=== PATIENT | male | born 1930 | race Two or more races ===

== ENCOUNTER 2016-12-26 19:33 | Inpatient (IN) | payer MEDICARE, MEDICAID ==
[~2016-12-26] VITALS: Ht 172.7 cm; Wt 68.0 kg
[~2016-12-26 19:33] MED LIST: ASPIRIN EC81 MG ORAL; ATIVAN2 MG ORAL; CELEXA20 MG ORAL; CIPRO250 MG ORAL; CIPROFLOXACIN500 M2 ORAL; ECOTRIN325 MG ORAL; ENALAPRIL MALE2.5 MG ORAL; ENALAPRIL MALEA10 MG ORAL; ENALAPRIL MALEA20 MG ORAL; EXELON1.5 MG ORAL; KEFLEX500 MG ORAL; MERREM1 GM IV; METFORMIN HCL500 M1 ORAL; MIRALAX17 GM ORAL; NITROFURANTOIN100 M2 ORAL; NORVASC5 MG ORAL; PLAVIX75 MG ORAL; TYLENOL325 MG ORAL; VASOTEC10 MG ORAL; VESICARE5 MG ORAL; VITAMIN D250000 UNI1 ORAL; norvasc; vitamin D2
[2016-12-26] MEDS ORDERED: NITROFURANTOIN100 M2 ORAL (19:42)
[2016-12-26] MEDS ORDERED: ENALAPRIL MALEA20 MG ORAL (19:42)
[2016-12-26] MEDS ORDERED: NORVASC5 MG ORAL (19:42)
[2016-12-26] MEDS ORDERED: ASPIRIN81 MG ORAL (19:43)
--- NOTE | 2016-12-26 19:43 | Emergency Room Report ---
History of Present Illness General Chief Complaint: Altered Level of Consciousness Source: Family Member, Medical Record, EMS Present Illness HPI The patient is sent in for altered mentation. Apparently he's had UTIs in the past. He is a suprapubic catheter. He was last admitted to [facility] in 2016. He is unable to give a history. His PMD called and stated he believes the patient has an UTI and wants him admitted. Macrobid was started 12/23. He has been confused. DISCHARGE DIAGNOSES 2016: Includes: 1. Urinary tract infection. 2. Altered mental status secondary to toxic encephalopathy, resolved. 3. Dehydration, resolved. 4. Hypertension. 5. Diabetes mellitus type 2. 6. Coronary artery disease. 7. Second-degree heart block. 8. Depression. 9. Generalized weakness. 10. Nonobstructive renal stone. 11. Neurogenic bladder with suprapubic catheterization. Allergies: Coded Allergies: No Known Allergies (Unverified , 11/26/14) Patient History Limited by: medical condition Past Medical History: see triage record, old chart reviewed Social History: Denies: smoking, alcohol use, drug use Social History Narrative Reviewed Nursing Documentation: PMH: Agreed, PSxH: Agreed Nursing Documentation-PMH Past Medical History: No History, Except For Hx Cardiac Problems: Yes Hx Hypertension: Yes Hx Diabetes: Yes - Type 2 Hx Cancer: No Hx Gastrointestinal Problems: No History Of Psychiatric Problem: Yes - Anxiety Disorder Hx Neurological Problems: No - Insomnia Review of Systems All Other Systems: limited Physical Exam Vital Signs Date Time Temp Pulse Resp B/P (MAP) Pulse Ox O2 Delivery O2 Flow Rate FiO2 12/26/16 19:20 98.1 68 20 128/69 95 Room Air Sp02 EP Interpretation: reviewed, normal General Appearance: well appearing, no apparent distress, alert Head: normocephalic, atraumatic Eyes: bilateral eye normal inspection, bilateral eye PERRL ENT: moist mucus membranes Neck: supple Respiratory: lungs clear, normal breath sounds Cardiovascular #1: regular rate, rhythm, edema - trace bilaterally Cardiovascular #2: 2+ radial (R) Gastrointestinal: normal inspection, normal bowel sounds, no mass, non- distended, tenderness - suprapubic, other - suprapubic cath Genitourinary: no CVA tenderness, other - see abd Musculoskeletal: back normal, normal range of motion Neurologic: alert, responsive, motor weakness - LE bilaterally, UE normal Psychiatric: depressed affect Reflexes: 1+ knee (R), 1+ knee (L) Skin: warm/dry, other - sallo Medical Decision Making Diagnostic Impression: Primary Impression: Catheter-associated urinary tract infection Qualified Codes: T83.510A - Infection and inflammatory reaction due to cystostomy catheter, initial encounter; N39.0 - Urinary tract infection, site not specified Additional Impressions: Outpatient antibiotic failure Altered level of consciousness Renal insufficiency ER Course The patient presents with altered mentation with alleged UTI. Differential includes sepsis, electrolyte abnormality, acute myocardial infarction amongst others. The patient will be treated with IV hydration and undergo evaluation with EKG, chest x-ray and labs. The fact he is altered on outpatient antibiotics is disconcerting and may indicate need for IV antibiotics with broader spectrum. Labs with normal WBC. Normal lactate. UA with pyuria. EKG and CXR unremarkable. Some renal insufficiency. Discussed with daughter. Admit tele Dr. Felix (at request of Dr. Sweeney. Laboratory Tests Test 12/26/16 19:45 12/26/16 20:30 White Blood Count 5.8 K/UL (4.8-10.8) Red Blood Count 4.19 M/UL (4.70-6.10) L Hemoglobin 10.0 G/DL (14.2-18.0) L Hematocrit 31.4 % (42.0-52.0) L Mean Corpuscular Volume 75 FL (80-99) L Mean Corpuscular Hemoglobin 23.9 PG (27.0-31.0) L Mean Corpuscular Hemoglobin Concent 32.0 G/DL (32.0-36.0) Red Cell Distribution Width 14.4 % (11.6-14.8) Platelet Count 173 K/UL (150-450) Mean Platelet Volume 6.5 FL (6.5-10.1) Neutrophils (%) (Auto) 62.5 % (45.0-75.0) Lymphocytes (%) (Auto) 22.8 % (20.0-45.0) Monocytes (%) (Auto) 7.5 % (1.0-10.0) Eosinophils (%) (Auto) 6.1 % (0.0-3.0) H Basophils (%) (Auto) 1.2 % (0.0-2.0) Prothrombin Time 9.5 SEC (9.30-11.50) Prothrombin Time INR 0.9 (0.9-1.1) PTT 23 SEC (23-33) Sodium Level 135 mEQ/L (135-145) Potassium Level 5.0 mEQ/L (3.4-4.9) H Chloride Level 98 mEQ/L (98-107) Carbon Dioxide Level 23 mEQ/L (20-30) Anion Gap 14 (5-15) Blood Urea Nitrogen 40 mg/dL (7-23) H Creatinine 2.0 mg/dL (0.7-1.2) H Estimate Glomerular Filtration Rate mL/min (>60) Glucose Level 153 mg/dL (74-106) H Lactic Acid Level 1.90 mmol/L (0.66-2.22) Calcium Level 9.6 mg/dL (8.6-10.2) Total Bilirubin 0.5 mg/dL (0.0-1.2) Aspartate Amino Transferase (AST) 14 U/L (5-40) Alanine Aminotransferase (ALT) 10 U/L (3-41) Alkaline Phosphatase 70 U/L (40-129) Ammonia 22 umol/L (16-60) Total Creatine Kinase 44 U/L (38-174) Troponin I < 0.30 ng/mL (<=0.30) Pro-B-Type Natriuretic Peptide 870 pg/mL (0-450) H Total Protein 6.7 g/dL (6.6-8.7) Albumin 4.2 g/dL (3.5-5.2) Globulin 2.5 g/dL Albumin/Globulin Ratio 1.6 (1.0-2.7) Thyroid Stimulating Hormone (TSH) 2.430 uIU/mL (0.300-4.500) Salicylates Level < 1 mg/dL (10-30) L Acetaminophen Level < 10 ug/mL (10-30) L Serum Alcohol < 10 mg/dL Urine Color Yellow Urine Appearance Clear Urine pH 5 (4.5-8.0) Urine Specific [place] 1.010 (1.005-1.035) Urine Protein 3+ (NEGATIVE) H Urine Glucose (UA) Negative (NEGATIVE) Urine Ketones Negative (NEGATIVE) Urine Occult Blood 3+ (NEGATIVE) H Urine Nitrite Positive (NEGATIVE) H Urine Bilirubin Negative (NEGATIVE) Urine Urobilinogen Normal MG/DL (0.0-1.0) Urine Leukocyte Esterase 3+ (NEGATIVE) H Urine RBC 5-10 /HPF (0 - 0) H Urine WBC 15-20 /HPF (0 - 0) H Urine Squamous Epithelial Cells Occasional /LPF Urine Bacteria Moderate /HPF (NONE) H Urine Opiates Screen Negative (NEGATIVE) Urine Barbiturates Screen Negative (NEGATIVE) Phencyclidine (PCP) Screen Negative (NEGATIVE) Urine Amphetamines Screen Negative (NEGATIVE) Urine Benzodiazepines Screen Negative (NEGATIVE) Urine Cocaine Screen Negative (NEGATIVE) Urine Marijuana (THC) Screen Negative (NEGATIVE) EKG Diagnostic Results Rate: normal Rhythm: other - junctional ST Segments: no acute changes Rhythm Strip Diag. Results EP Interpretation: yes Rhythm: no PVC's, no ectopy, other - rate 62 Chest X-Ray Diagnostic Results Chest X-Ray Diagnostic Results : Chest X-Ray Ordered: Yes # of Views/Limited/Complete: 1 View Indication: Other EP Interpretation: Yes Interpretation: no consolidation, no effusion, no pneumothorax Impression: No acute disease Interpreting ER Provider: Electronically signed by Jurgen Grover MD Last Vital Signs Date Time Temp Pulse Resp B/P (MAP) Pulse Ox O2 Delivery O2 Flow Rate FiO2 12/26/16 23:58 97.2 59 21 149/68 Room Air 12/26/16 23:10 93 Status: improved Disposition: ADMITTED INPATIENT Condition: Serious Jurgen Grover M.D. Dec 26, 2016 19:43
[2016-12-26 20:05] VITALS: BP 131/50
[2016-12-26 20:18] LABS: BASOPHILS % (AUTO) 1.2 % (0.0-2.0); EOSINOPHILS % (AUTO) 6.1 % (0.0-3.0); LYMPHOCYTES % (AUTO) 22.8 % (20.0-45.0); MEAN CORPUSCULAR HEMOGLOBIN 23.9 PG (27.0-31.0); MEAN CORPUSCULAR VOLUME 75 FL (80-99); MEAN PLATELET VOLUME 6.5 FL (6.5-10.1); MONOCYTES % (AUTO) 7.5 % (1.0-10.0); NEUTROPHILS % (AUTO) 62.5 % (45.0-75.0); PLATELET COUNT 173 K/UL (150-450); RED BLOOD COUNT 4.19 M/UL (4.70-6.10); RED CELL DISTRIBUTION WIDTH 14.4 % (11.6-14.8); WHITE BLOOD COUNT 5.8 K/UL (4.8-10.8)
[2016-12-26 20:33] LABS: TROPONIN I < 0.30 ng/mL (<=0.30)
[2016-12-26 20:34] LABS: AMMONIA 22 umol/L (16-60); INR 0.9 (0.9-1.1); PROTHROMBIN TIME 9.5 SEC (9.30-11.50)
[2016-12-26 20:35] LABS: ACETAMINOPHEN < 10 ug/mL (10-30); ALANINE AMINOTRANSFERASE 10 U/L (3-41); ALBUMIN/GLOBULIN RATIO 1.6 (1.0-2.7); ALCOHOL < 10 mg/dL; ANION GAP 14 (5-15); ASPARTATE AMINO TRANSFERASE 14 U/L (5-40); CALCIUM 9.6 mg/dL (8.6-10.2); CARBON DIOXIDE 23 mEQ/L (20-30); CHLORIDE 98 mEQ/L (98-107); HEMOLYSIS 15; SODIUM 135 mEQ/L (135-145); TOTAL PROTEIN 6.7 g/dL (6.6-8.7)
[2016-12-26 20:54] LABS: APPEARANCE,URINE CLEAR; KETONES,URINE NEGATIVE (NEGATIVE); LEUKOCYTE ESTERASE ,URINE 3+ (NEGATIVE); NITRITE,URINE POSITIVE (NEGATIVE); PH,URINE 5 (4.5-8.0); PROTEIN,URINE 3+ (NEGATIVE); UROBILINOGEN,URINE NORMAL MG/DL (0.0-1.0)
[2016-12-26 21:04] LABS: BACTERIA,URINE MODERATE /HPF; SQUAMOUS EPITHELIAL CELL,UR OCCASIONAL /LPF (NONE/OCC); WBC,URINE 15-20 /HPF (0 - 0)
[2016-12-26] MEDS ORDERED: Cefepime HCl 1 GM in D5W 55 ML IVPB ONE (21:15)
[2016-12-26] MEDS ORDERED: Cefepime 1gm vial ONE (21:21)
[2016-12-26 22:55] VITALS: BP 138/57
[2016-12-26] MEDS ORDERED: Mylanta II UD 30ml ORAL PRN (23:00)
[2016-12-26] MEDS ORDERED: Milk of Magnesia 30ml Ud ORAL PRN (23:00)
[2016-12-26] MEDS ORDERED: Zolpidem 5mg tab ORAL PRN (23:00)
[2016-12-26 23:58] VITALS: BP 149/68
[2016-12-27] MEDS: Heparin 5000 units/ml inj SUBQ SCH ×3 (00:09→20:59)
[2016-12-27] MEDS ORDERED: Vancomycin 1250mg/D5W 250ml IVPB SCH (01:00)
[2016-12-27 03:37] VITALS: BP 121/63
[2016-12-27] MEDS ORDERED: Piperacillin/Tazobactam 2.25 GM in D5W 55 ML IVPB SCH (06:00)
[2016-12-27] MEDS ORDERED: NovoLOG Insulin Flexpen SUBQ SCH ×3 (06:30)
[2016-12-27] MEDS ORDERED: Zosyn 3.375gm inj ONE (06:46)
[2016-12-27] MEDS: Zosyn 3.375gm q8h **Extended infusion IVPB SCH ×6 (07:24→22:43)
[2016-12-27 07:51] VITALS: BP 135/64
[2016-12-27] MEDS: NovoLOG Insulin Flexpen SUBQ SCH ×4 (08:00→21:00)
[2016-12-27 11:39] VITALS: BP 150/73
--- NOTE | 2016-12-27 11:58 | History & Physical ---
History and Physical History & Physicial HP dictated # [id number] JANINE COTO Dec 27, 2016 11:58
[2016-12-27] MEDS: Miralax 17gm pkt ORAL SCH (12:00)
[2016-12-27] MEDS: Aspirin EC 81mg tab ORAL SCH (12:50)
[2016-12-27] MEDS: Citalopram 20mg Tab ORAL SCH (12:51)
[2016-12-27 15:24] VITALS: BP 100/62
[2016-12-27 20:00] VITALS: BP 131/60
[2016-12-28 00:16] VITALS: BP 123/58
--- NOTE | 2016-12-28 00:45 | History and Physical Report ---
DATE OF ADMISSION: 12/26/2016 CHIEF COMPLAINT: The patient was found to have change in mental status. HISTORY OF PRESENT ILLNESS: This is a very pleasant, 85-year-old, [place] male, who has a history of neurogenic bladder, status post suprapubic catheter for a number of years now. The patient was diagnosed with recent UTI. He was treated with oral antibiotics; however, he has become altered and that is why he was sent to the emergency room and was admitted with diagnosis of urinary tract infection. PAST MEDICAL HISTORY: Includes also history of diabetes mellitus, hypertension, coronary artery disease, second-degree heart block, depression, and history of nephrolithiasis. MEDICATIONS: Reviewed in EMR. ALLERGIES: No known drug allergies. SOCIAL HISTORY: The patient lives in a [facility] care facility. No history of smoking or alcohol abuse. REVIEW OF SYSTEMS: Noncontributory. PHYSICAL EXAMINATION: GENERAL: The patient is an elderly male, in no acute distress. VITAL SIGNS: Blood pressure 135/64, pulse 54, temperature 96.3 degrees, and respirations 20. HEENT: Pale conjunctivae. Anicteric sclerae. NECK: Supple. LUNGS: Clear to auscultation. HEART: S1 and S2 without murmurs or rubs. ABDOMEN: Soft and nontender. There is a suprapubic catheter in place. EXTREMITIES: No cyanosis or edema. LABORATORY FINDINGS: The CBC shows WBC of 5.8, hematocrit is 31.4, hemoglobin is 10, and platelets 173,000. UA shows 3+ protein, 15-20 WBCs per high-powered field. Chemistry panel shows serum sodium 135, potassium 5, chloride 98, CO2 23, BUN is 40, creatinine 2, and blood sugar is 153. ASSESSMENT: This is an 85-year-old, [place] male, who was admitted with change in mental status and has urinary tract infection. He has also other comorbidities including diabetes mellitus, coronary artery disease, previous history of depression, and kidney stones. PLAN: The patient will be on IV antibiotics. Labs will be checked. Urine cultures will be checked. ID consultation will be obtained. Case was discussed with the son, who was at bedside. Kev Felix M.D. DR: SUSAN JOB#: [id number] CC:
[2016-12-28] MEDS ORDERED: Vancomycin 750mg/NS 250ml IVPB SCH (02:00)
--- NOTE | 2016-12-28 02:15 | Consultation ---
DATE OF CONSULTATION: 12/27/2016 INFECTIOUS DISEASE CONSULTATION: CONSULTING PHYSICIAN: Aquiles Felix M.D. PRIMARY ATTENDING PHYSICIAN: Kev Felix M.D. REASON FOR CONSULTATION: Urinary tract infection. HISTORY OF PRESENT ILLNESS: This is an 85-year-old [place] male, admitted last night from nursing facility with altered mental status. The patient himself is a poor historian. No fever. No chills. No leukocytosis. He has a suprapubic catheter. PAST MEDICAL HISTORY: Significant for diabetes mellitus type 2, suprapubic catheter, hypertension, coronary artery disease, second-degree heart block, and anemia. ALLERGIES: No known drug allergy. MEDICATIONS: Vancomycin, amlodipine, aspirin, Celexa, Plavix, Tylenol, enalapril, insulin, Zosyn, sodium chloride, heparin, magnesium hydroxide, Zofran, Ambien, and Mylanta. SOCIAL HISTORY: [facility] resident. He states that he had a son and daughter. No history of alcohol, drug abuse, or smoking. REVIEW OF SYSTEMS: The patient does not seem to remember the events very well. Currently has no pain. PHYSICAL EXAMINATION: VITAL SIGNS: Temperature is 96.6 degrees, pulse 62, and blood pressure 150/73. GENERAL APPEARANCE: Seems to be well developed. HEENT: Head and neck, pink conjunctivae. HEART: S1 and S2 are regular. LUNGS: Clear. ABDOMEN: Soft. There is a suprapubic catheter in place. There is a vertical line of surgery in the suprapubic area. The patient does not remember what kind of surgery he had in the past. EXTREMITIES: He has no edema. LABORATORY AND DIAGNOSTIC DATA: WBC is 5.8, hemoglobin 10, hematocrit 31.4, and platelets 173,000. Sodium is 135, potassium 5, chloride 98, bicarbonate 23, BUN 40, creatinine 2, and glucose 153. Urine culture is so far negative. Chest x-ray, negative. UA showed WBCs 15 to 20, RBCs of 5 to 10, nitrate positive, and bacteria moderate. IMPRESSION: 1. Altered mental status. 2. The patient has pyuria and may have urinary tract infection that seems to be complicated. He has suprapubic urine catheter. 3. Diabetes mellitus type 2. 4. Hypertension. 5. Anemia. 6. He seems to have baseline dementia. RECOMMENDATIONS: Continue with Zosyn. Discontinue vancomycin. At the end of my exam, I thanked Dr. Kev Felix for involving me in the care of this patient. Aquiles Felix M.D. DR: Dionte JOB#: [id number] CC:
[2016-12-28 04:05] VITALS: BP 132/60
[2016-12-28] MEDS: Zosyn 3.375gm q8h **Extended infusion IVPB SCH ×6 (05:25→22:23)
[2016-12-28] MEDS: NovoLOG Insulin Flexpen SUBQ SCH ×4 (06:09→21:09)
[2016-12-28 08:00] VITALS: BP 145/59
[2016-12-28] MEDS: Citalopram 20mg Tab ORAL SCH (09:01)
[2016-12-28] MEDS: Aspirin EC 81mg tab ORAL SCH (09:01)
[2016-12-28] MEDS: Miralax 17gm pkt ORAL SCH (09:02)
[2016-12-28] MEDS: Heparin 5000 units/ml inj SUBQ SCH ×2 (09:05→21:09)
--- NOTE | 2016-12-28 09:13 | Infectious Diseases Prog Note ---
Assessment/Plan Assessment/Plan A; Complicated UTI AMS DM type 2 HPN CAD Anemia Acute renal failure P Continue Zosyn will f/u cultures Subjective ROS Limited/Unobtainable: No Constitutional: Reports: no symptoms Respiratory: Reports: no symptoms Gastrointestinal/Abdominal: Reports: no symptoms Genitourinary: Reports: no symptoms Allergies: Coded Allergies: No Known Allergies (Unverified , 11/26/14) Objective Vital Signs Last 24 Hour Vital Signs Date Time Temp Pulse Resp B/P (MAP) Pulse Ox O2 Delivery O2 Flow Rate FiO2 12/28/16 09:01 145/59 12/28/16 09:01 59 145/59 12/28/16 08:00 97.0 59 20 145/59 99 Room Air 12/28/16 04:05 98.1 58 19 132/60 96 Room Air 12/28/16 03:49 44 12/28/16 00:16 98.8 56 20 123/58 93 Room Air 12/27/16 23:59 54 12/27/16 20:56 131/60 12/27/16 20:00 98.3 60 19 131/60 95 Room Air 12/27/16 19:59 58 12/27/16 16:00 58 12/27/16 15:24 97.1 71 20 100/62 94 Room Air 12/27/16 12:51 62 150/73 12/27/16 12:50 150/73 12/27/16 12:00 55 12/27/16 11:39 96.6 62 20 150/73 94 Room Air Height (Feet): 5 Height (Inches): 8.00 Weight (Pounds): 150 General Appearance: no acute distress HEENT: mucous membranes moist Respiratory/Chest: lungs clear Cardiovascular: normal rate Abdomen: soft, non tender Genitourinary: other - suprapubic catheter Extremities: no edema Neurologic/Psychiatric: alert, responsive Microbiology Date/Time Source Procedure Growth Status 12/26/16 20:00 Blood Blood Culture - Preliminary NO GROWTH AFTER 24 HOURS Resulted 12/26/16 19:45 Blood Blood Culture - Preliminary NO GROWTH AFTER 24 HOURS Resulted 12/26/16 20:30 Urine,Clean Catch Urine Culture - Preliminary Gram Negative Bacillus 1 Resulted Current Medications Medications (Trade) Dose Ordered Sig/Charlene Route PRN Reason Start Time Stop Time Status Last Admin Dose Admin Acetaminophen (Tylenol) 325 mg Q6H PRN ORAL Mild Pain/Temp > 100.5 12/27/16 12:00 01/26/17 11:59 Al Hydroxide/Mg Hydroxide (Mylanta II) 30 ml Q6H PRN ORAL dyspepsia 12/26/16 23:00 01/25/17 22:59 Amlodipine Besylate (Norvasc) 5 mg DAILY ORAL 12/27/16 13:00 01/26/17 12:59 12/28/16 09:01 Aspirin (Ecotrin) 81 mg DAILY ORAL 12/27/16 13:00 01/26/17 12:59 12/28/16 09:01 Citalopram Hydrobromide (celeXA) 40 mg DAILY ORAL 12/27/16 13:00 01/26/17 12:59 12/28/16 09:01 Clopidogrel Bisulfate (Plavix) 75 mg DAILY ORAL 12/27/16 13:00 01/26/17 12:59 12/28/16 09:01 Dextrose (Dextrose 50%) STAT PRN IV Hypoglycemia 12/26/16 23:00 01/25/17 22:59 Enalapril Maleate (Vasotec) 20 mg EVERY 12 HOURS ORAL 12/27/16 12:00 01/26/17 11:59 12/28/16 09:01 Heparin Sodium (Porcine) (Heparin 5000 units/ml) 5,000 units EVERY 12 HOURS SUBQ 12/27/16 00:00 01/26/17 00:00 12/28/16 09:05 Insulin Aspart (NovoLOG) BEFORE MEALS AND HS SUBQ 12/27/16 08:00 01/26/17 07:59 12/27/16 21:00 Magnesium Hydroxide (Mom) 30 ml HSPRN PRN ORAL Constipation 12/26/16 23:00 01/25/17 22:59 Ondansetron HCl (Zofran) 4 mg Q6H PRN IVP Nausea & Vomiting 12/26/16 23:00 01/25/17 22:59 Piperacillin Sod/ Tazobactam Sod 3.375 gm/Dextrose 110 ml @ 27.5 mls/hr EVERY 8 HOURS IVPB 12/27/16 06:00 01/03/17 05:59 12/28/16 05:25 Polyethylene Glycol (Miralax) 17 gm DAILY ORAL 12/27/16 12:00 01/26/17 11:59 12/28/16 09:02 Sodium Chloride 1,000 ml @ 75 mls/hr [id number] IVLG 12/27/16 00:00 01/26/17 00:00 12/28/16 04:08 Zolpidem Tartrate (Ambien) 5 mg DAILYPRN PRN ORAL Insomnia 12/26/16 23:00 01/02/17 22:59 MIKE COTO Dec 28, 2016 09:13
--- NOTE | 2016-12-28 09:48 | General Progress Note ---
Assessment/Plan Problem List: (1) Altered level of consciousness ICD Codes: R40.4 - Transient alteration of awareness SNOMED: 1614926 (2) Catheter-associated urinary tract infection ICD Codes: T83.51XA - Infection and inflammatory reaction due to indwelling urinary catheter, initial encounter; N39.0 - Urinary tract infection, site not specified SNOMED: 06384586 Qualifiers: Qualified Codes: T83.510A - Infection and inflammatory reaction due to cystostomy catheter, initial encounter; N39.0 - Urinary tract infection, site not specified (3) ARF (acute renal failure) ICD Codes: N17.9 - Acute kidney failure, unspecified SNOMED: 94673910 Assessment/Plan abxs IVF follow labs Await final culture results Subjective Allergies: Coded Allergies: No Known Allergies (Unverified , 11/26/14) Subjective feels ok Objective Last 24 Hour Vital Signs Date Time Temp Pulse Resp B/P (MAP) Pulse Ox O2 Delivery O2 Flow Rate FiO2 12/28/16 09:01 145/59 12/28/16 09:01 59 145/59 12/28/16 08:00 97.0 59 20 145/59 99 Room Air 12/28/16 04:05 98.1 58 19 132/60 96 Room Air 12/28/16 03:49 44 12/28/16 00:16 98.8 56 20 123/58 93 Room Air 12/27/16 23:59 54 12/27/16 20:56 131/60 12/27/16 20:00 98.3 60 19 131/60 95 Room Air 12/27/16 19:59 58 12/27/16 16:00 58 12/27/16 15:24 97.1 71 20 100/62 94 Room Air 12/27/16 12:51 62 150/73 12/27/16 12:50 150/73 12/27/16 12:00 55 12/27/16 11:39 96.6 62 20 150/73 94 Room Air Intake and Output 12/28/16 12/29/16 19:00 07:00 Intake Total 27.5 ml Balance 27.5 ml IV Total 27.5 ml Height (Feet): 5 Height (Inches): 8.00 Weight (Pounds): 150 Cardiovascular: normal rate Respiratory/Chest: lungs clear Abdomen: soft JANINE COTO Dec 28, 2016 09:48
[2016-12-28 11:52] VITALS: BP 143/69
[2016-12-28 16:00] VITALS: BP 123/61
--- NOTE | 2016-12-28 16:29 | General Progress Note ---
Assessment/Plan Status: stable Assessment/Plan 1. Altered level of consciousness - 2nd to metabolic encephalopathy 2. Catheter-associated urinary tract infection - cont IV abx for now. follow urine cx. ID is following. 3. ARF (acute renal failure) - Cont IV fluid and recheck labs in AM. 4. HTN - cont Norvasc 5 mg one po daily. cont enalapril 20 mg one po daily 5. DM II - insulin SSI now. Subjective Date patient seen: Dec 28, 2016 Time patient seen: 04:00 Constitutional: Reports: no symptoms HEENT: Reports: no symptoms Cardiovascular: Reports: no symptoms Respiratory: Reports: no symptoms Gastrointestinal/Abdominal: Reports: no symptoms Genitourinary: Reports: no symptoms Neurologic/Psychiatric: Reports: no symptoms Endocrine: Reports: no symptoms Hematologic/Lymphatic: Reports: no symptoms Allergies: Coded Allergies: No Known Allergies (Unverified , 11/26/14) Subjective Patient is afebrile. no sob or chest pain. no fever or chills. no nausea or vomiting. He is on IV abx and urine cx still pending. Objective Last 24 Hour Vital Signs Date Time Temp Pulse Resp B/P (MAP) Pulse Ox O2 Delivery O2 Flow Rate FiO2 12/28/16 12:00 57 12/28/16 11:52 97.7 57 20 143/69 94 Room Air 12/28/16 09:01 145/59 12/28/16 09:01 59 145/59 12/28/16 08:00 97.0 59 20 145/59 99 Room Air 12/28/16 08:00 64 12/28/16 04:05 98.1 58 19 132/60 96 Room Air 12/28/16 03:49 44 12/28/16 00:16 98.8 56 20 123/58 93 Room Air 12/27/16 23:59 54 12/27/16 20:56 131/60 12/27/16 20:00 98.3 60 19 131/60 95 Room Air 12/27/16 19:59 58 Intake and Output 12/28/16 12/29/16 19:00 07:00 Intake Total 857.5 ml Balance 857.5 ml Intake Oral 120 ml IV Total 737.5 ml Height (Feet): 5 Height (Inches): 8.00 Weight (Pounds): 150 General Appearance: no apparent distress, confused EENT: normal ENT inspection, TMs normal Neck: non-tender, normal alignment, supple Cardiovascular: normal peripheral pulses, normal rate, regular rhythm Respiratory/Chest: chest wall non-tender, lungs clear, normal breath sounds Abdomen: non tender, soft, no organomegaly Extremities: normal range of motion, non-tender Edema: no edema noted Arm (L), no edema noted Arm (R), no edema noted Leg (L), no edema noted Leg (R), no edema noted Pedal (L), no edema noted Pedal (R), no edema noted Generalized Neurologic: no motor/sensory deficits, responsive Skin: warm/dry Lymphatic: normal anterior cervical (L), normal anterior cervical (R), normal posterior cervical (L), normal posterior cervical (R), normal submandibular (L) , normal submandibular (R), normal supraclavicular (L), normal supraclavicular ( R), normal axillary (L), normal axillary (R), normal inguinal (L), normal inguinal (R), normal other ISIDRO YOON Dec 28, 2016 16:29
[2016-12-28 20:00] VITALS: BP 155/91
[2016-12-29] VITALS: BP 139/63
[2016-12-29 04:00] VITALS: BP 133/69
[2016-12-29] MEDS: Zosyn 3.375gm q8h **Extended infusion IVPB SCH ×2 (06:12)
[2016-12-29] MEDS: NovoLOG Insulin Flexpen SUBQ SCH ×4 (06:36→21:26)
[2016-12-29 06:45] LABS: BASOPHILS % (AUTO) 1.7 % (0.0-2.0); EOSINOPHILS % (AUTO) 6.9 % (0.0-3.0); MEAN CORPUSCULAR HEMOGLOBIN 23.4 PG (27.0-31.0); MEAN CORPUSCULAR HGB CONC 31.2 G/DL (32.0-36.0); MEAN CORPUSCULAR VOLUME 75 FL (80-99); MONOCYTES % (AUTO) 9.1 % (1.0-10.0); NEUTROPHILS % (AUTO) 48.3 % (45.0-75.0); PLATELET COUNT 163 K/UL (150-450); RED BLOOD COUNT 3.94 M/UL (4.70-6.10); RED CELL DISTRIBUTION WIDTH 13.3 % (11.6-14.8); WHITE BLOOD COUNT 4.5 K/UL (4.8-10.8)
[2016-12-29 06:59] LABS: ANION GAP 10 (5-15); CARBON DIOXIDE 26 mEQ/L (20-30); CHLORIDE 106 mEQ/L (98-107); CREATININE 1.3 mg/dL (0.7-1.2); HEMOLYSIS 1; POTASSIUM 4.4 mEQ/L (3.4-4.9); SODIUM 142 mEQ/L (135-145)
[2016-12-29 08:17] VITALS: BP 131/59
[2016-12-29] MEDS: Miralax 17gm pkt ORAL SCH (10:03)
[2016-12-29] MEDS: Aspirin EC 81mg tab ORAL SCH (10:04)
[2016-12-29] MEDS: Citalopram 20mg Tab ORAL SCH (10:04)
[2016-12-29] MEDS: Heparin 5000 units/ml inj SUBQ SCH ×2 (10:05→21:25)
[2016-12-29] MEDS ORDERED: Tubing IV Secondary IV ONE (10:51)
[2016-12-29] MEDS ORDERED: 1/2 NS 1000ml IV ONE (10:51)
[2016-12-29] MEDS ORDERED: NS 275ml ONE (10:51)
--- NOTE | 2016-12-29 11:55 | Infectious Diseases Prog Note ---
Assessment/Plan Assessment/Plan A; Complicated UTI with E.coli AMS DM type 2 HPN CAD Anemia Acute renal failure improving P discontinue Zosyn , start on Rocephin @ time of discharge PO Keflex X 4 days Subjective ROS Limited/Unobtainable: Yes Allergies: Coded Allergies: No Known Allergies (Unverified , 11/26/14) Objective Vital Signs Last 24 Hour Vital Signs Date Time Temp Pulse Resp B/P (MAP) Pulse Ox O2 Delivery O2 Flow Rate FiO2 12/29/16 10:04 58 131/59 12/29/16 10:03 131/59 12/29/16 08:17 97.7 58 20 131/59 99 Room Air 12/29/16 08:00 59 12/29/16 04:00 49 12/29/16 04:00 97.0 51 21 133/69 95 Room Air 12/29/16 00:00 97.0 58 20 139/63 95 Room Air 12/29/16 00:00 51 12/28/16 21:07 155/91 12/28/16 20:00 57 12/28/16 20:00 97.0 55 20 155/91 94 Room Air 12/28/16 16:00 56 12/28/16 16:00 97.9 60 20 123/61 94 Room Air 12/28/16 12:00 57 Height (Feet): 5 Height (Inches): 8.00 Weight (Pounds): 150 General Appearance: no acute distress HEENT: mucous membranes moist Respiratory/Chest: lungs clear Cardiovascular: normal rate Abdomen: soft, non tender Extremities: no edema Neurologic/Psychiatric: other - sleeping Microbiology Date/Time Source Procedure Growth Status 12/26/16 20:00 Blood Blood Culture - Preliminary NO GROWTH AFTER 48 HOURS Resulted 12/26/16 19:45 Blood Blood Culture - Preliminary NO GROWTH AFTER 48 HOURS Resulted 12/26/16 20:30 Nasal Nares MRSA Culture - Final NO METHICILLIN RESISTANT STAPH AUREUS... Complete 12/26/16 20:30 Urine,Clean Catch Urine Culture - Final Escherichia Coli Complete 12/26/16 20:30 Rectum VRE Culture - Final NO VANCOMYCIN RESISTANT ENTEROCOCCUS ... Complete Laboratory Tests Test 12/29/16 06:05 White Blood Count 4.5 K/UL (4.8-10.8) L Red Blood Count 3.94 M/UL (4.70-6.10) L Hemoglobin 9.2 G/DL (14.2-18.0) L Hematocrit 29.5 % (42.0-52.0) L Mean Corpuscular Volume 75 FL (80-99) L Mean Corpuscular Hemoglobin 23.4 PG (27.0-31.0) L Mean Corpuscular Hemoglobin Concent 31.2 G/DL (32.0-36.0) L Red Cell Distribution Width 13.3 % (11.6-14.8) Platelet Count 163 K/UL (150-450) Mean Platelet Volume 6.0 FL (6.5-10.1) L Neutrophils (%) (Auto) 48.3 % (45.0-75.0) Lymphocytes (%) (Auto) 34.0 % (20.0-45.0) Monocytes (%) (Auto) 9.1 % (1.0-10.0) Eosinophils (%) (Auto) 6.9 % (0.0-3.0) H Basophils (%) (Auto) 1.7 % (0.0-2.0) Sodium Level 142 mEQ/L (135-145) Potassium Level 4.4 mEQ/L (3.4-4.9) Chloride Level 106 mEQ/L (98-107) Carbon Dioxide Level 26 mEQ/L (20-30) Anion Gap 10 (5-15) Blood Urea Nitrogen 23 mg/dL (7-23) Creatinine 1.3 mg/dL (0.7-1.2) H Estimat Glomerular Filtration Rate mL/min (>60) Glucose Level 121 mg/dL (74-106) H Calcium Level 9.0 mg/dL (8.6-10.2) Current Medications Medications (Trade) Dose Ordered Sig/Charlene Route PRN Reason Start Time Stop Time Status Last Admin Dose Admin Acetaminophen (Tylenol) 325 mg Q6H PRN ORAL Mild Pain/Temp > 100.5 12/27/16 12:00 01/26/17 11:59 Al Hydroxide/Mg Hydroxide (Mylanta II) 30 ml Q6H PRN ORAL dyspepsia 12/26/16 23:00 01/25/17 22:59 Amlodipine Besylate (Norvasc) 5 mg DAILY ORAL 12/27/16 13:00 01/26/17 12:59 12/29/16 10:04 Aspirin (Ecotrin) 81 mg DAILY ORAL 12/27/16 13:00 01/26/17 12:59 12/29/16 10:04 Citalopram Hydrobromide (celeXA) 40 mg DAILY ORAL 12/27/16 13:00 01/26/17 12:59 12/29/16 10:04 Clopidogrel Bisulfate (Plavix) 75 mg DAILY ORAL 12/27/16 13:00 01/26/17 12:59 12/29/16 10:04 Dextrose (Dextrose 50%) STAT PRN IV Hypoglycemia 12/26/16 23:00 01/25/17 22:59 Enalapril Maleate (Vasotec) 20 mg EVERY 12 HOURS ORAL 12/27/16 12:00 01/26/17 11:59 12/29/16 10:03 Heparin Sodium (Porcine) (Heparin 5000 units/ml) 5,000 units EVERY 12 HOURS SUBQ 12/27/16 00:00 01/26/17 00:00 12/29/16 10:05 Insulin Aspart (NovoLOG) BEFORE MEALS AND HS SUBQ 12/27/16 08:00 01/26/17 07:59 12/29/16 11:26 Magnesium Hydroxide (Mom) 30 ml HSPRN PRN ORAL Constipation 12/26/16 23:00 01/25/17 22:59 Ondansetron HCl (Zofran) 4 mg Q6H PRN IVP Nausea & Vomiting 12/26/16 23:00 01/25/17 22:59 Piperacillin Sod/ Tazobactam Sod 3.375 gm/Dextrose 110 ml @ 27.5 mls/hr EVERY 8 HOURS IVPB 12/27/16 06:00 01/03/17 05:59 12/29/16 06:12 Polyethylene Glycol (Miralax) 17 gm DAILY ORAL 12/27/16 12:00 01/26/17 11:59 12/29/16 10:03 Sodium Chloride 1,000 ml @ 75 mls/hr [id number] IVLG 12/27/16 00:00 01/26/17 00:00 12/29/16 05:09 Zolpidem Tartrate (Ambien) 5 mg DAILYPRN PRN ORAL Insomnia 12/26/16 23:00 01/02/17 22:59 MIKE COTO Dec 29, 2016 11:54
[2016-12-29 12:00] VITALS: BP 139/58
--- NOTE | 2016-12-29 12:45 | Nephrology Progress Note ---
Assessment/Plan Problem List: (1) Altered level of consciousness (2) Catheter-associated urinary tract infection (3) ARF (acute renal failure) Assessment: better (4) E. coli urinary tract infection Assessment: sensitive to Zosyn Plan cont Abxs follow labs discussed with RN Subjective Subjective feels ok Objective Objective Last 24 Hour Vital Signs Date Time Temp Pulse Resp B/P (MAP) Pulse Ox O2 Delivery O2 Flow Rate FiO2 12/29/16 10:04 58 131/59 12/29/16 10:03 131/59 12/29/16 08:17 97.7 58 20 131/59 99 Room Air 12/29/16 08:00 59 12/29/16 04:00 49 12/29/16 04:00 97.0 51 21 133/69 95 Room Air 12/29/16 00:00 97.0 58 20 139/63 95 Room Air 12/29/16 00:00 51 12/28/16 21:07 155/91 12/28/16 20:00 57 12/28/16 20:00 97.0 55 20 155/91 94 Room Air 12/28/16 16:00 56 12/28/16 16:00 97.9 60 20 123/61 94 Room Air Intake and Output 12/29/16 12/30/16 19:00 07:00 Intake Total 650.0 ml Balance 650.0 ml Intake Oral 240 ml IV Total 410.0 ml Laboratory Tests 12/29/16 06:05: White Blood Count 4.5L, Red Blood Count 3.94L, Hemoglobin 9.2L, Hematocrit 29.5L , Mean Corpuscular Volume 75L, Mean Corpuscular Hemoglobin 23.4L, Mean Corpuscular Hemoglobin Concent 31.2L, Red Cell Distribution Width 13.3, Platelet Count 163, Mean Platelet Volume 6.0L, Neutrophils (%) (Auto) 48.3, Lymphocytes (%) (Auto) 34.0, Monocytes (%) (Auto) 9.1, Eosinophils (%) (Auto) 6.9H, Basophils (%) (Auto) 1.7, Sodium Level 142, Potassium Level 4.4, Chloride Level 106, Carbon Dioxide Level 26, Anion Gap 10, Blood Urea Nitrogen 23, Creatinine 1.3H, Estimat Glomerular Filtration Rate , Glucose Level 121H, Calcium Level 9.0 Height (Feet): 5 Height (Inches): 8.00 Weight (Pounds): 150 Cardiovascular: normal rate Respiratory/Chest: lungs clear Extremities: other - no edema JANINE COTO Dec 29, 2016 12:45
[2016-12-29] MEDS: cefTRIAXone 1 GM in D5W 55 ML IVPB SCH (13:03)
[2016-12-29 16:00] VITALS: BP 140/61
--- NOTE | 2016-12-29 16:38 | General Progress Note ---
Assessment/Plan Status: stable Assessment/Plan 1. Altered level of consciousness - 2nd to metabolic encephalopathy - resolved. 2. Catheter-associated urinary tract infection - cont IV abx rocephin today and D/C planning to assisted living loving care tomorrow. 3. ARF (acute renal failure) - D/C IVF. improved. 4. HTN - cont Norvasc 5 mg one po daily. cont enalapril 20 mg one po daily. 5. DM II - insulin SSI for now. Subjective Date patient seen: Dec 29, 2016 Time patient seen: 04:15 Constitutional: Reports: no symptoms HEENT: Reports: no symptoms Cardiovascular: Reports: no symptoms Respiratory: Reports: no symptoms Gastrointestinal/Abdominal: Reports: no symptoms Genitourinary: Reports: no symptoms Neurologic/Psychiatric: Reports: no symptoms Endocrine: Reports: no symptoms Hematologic/Lymphatic: Reports: no symptoms Allergies: Coded Allergies: No Known Allergies (Unverified , 11/26/14) Subjective Patient is afebrile. no sob or chest pain. no fever or chills. no nausea or vomiting. He is doing better today. Objective Last 24 Hour Vital Signs Date Time Temp Pulse Resp B/P (MAP) Pulse Ox O2 Delivery O2 Flow Rate FiO2 12/29/16 12:00 50 12/29/16 12:00 97.9 59 21 139/58 97 Room Air 12/29/16 10:04 58 131/59 12/29/16 10:03 131/59 12/29/16 08:17 97.7 58 20 131/59 99 Room Air 12/29/16 08:00 59 12/29/16 04:00 49 12/29/16 04:00 97.0 51 21 133/69 95 Room Air 12/29/16 00:00 97.0 58 20 139/63 95 Room Air 12/29/16 00:00 51 12/28/16 21:07 155/91 12/28/16 20:00 57 12/28/16 20:00 97.0 55 20 155/91 94 Room Air Intake and Output 12/29/16 12/30/16 19:00 07:00 Intake Total 870.0 ml Output Total 250 ml Balance 620.0 ml Intake Oral 460 ml IV Total 410.0 ml Output Urine Total 250 ml Laboratory Tests 12/29/16 06:05: White Blood Count 4.5L, Red Blood Count 3.94L, Hemoglobin 9.2L, Hematocrit 29.5L , Mean Corpuscular Volume 75L, Mean Corpuscular Hemoglobin 23.4L, Mean Corpuscular Hemoglobin Concent 31.2L, Red Cell Distribution Width 13.3, Platelet Count 163, Mean Platelet Volume 6.0L, Neutrophils (%) (Auto) 48.3, Lymphocytes (%) (Auto) 34.0, Monocytes (%) (Auto) 9.1, Eosinophils (%) (Auto) 6.9H, Basophils (%) (Auto) 1.7, Sodium Level 142, Potassium Level 4.4, Chloride Level 106, Carbon Dioxide Level 26, Anion Gap 10, Blood Urea Nitrogen 23, Creatinine 1.3H, Estimat Glomerular Filtration Rate , Glucose Level 121H, Calcium Level 9.0 Height (Feet): 5 Height (Inches): 8.00 Weight (Pounds): 150 General Appearance: no apparent distress, alert EENT: normal ENT inspection Neck: non-tender, normal alignment, supple Cardiovascular: normal peripheral pulses, normal rate, regular rhythm Respiratory/Chest: chest wall non-tender, lungs clear, normal breath sounds Abdomen: normal bowel sounds, non tender, soft Extremities: normal range of motion, non-tender Edema: no edema noted Arm (L), no edema noted Arm (R), no edema noted Leg (L), no edema noted Leg (R), no edema noted Pedal (L), no edema noted Pedal (R), no edema noted Generalized Neurologic: no motor/sensory deficits, alert, responsive Skin: warm/dry Lymphatic: normal anterior cervical (L), normal anterior cervical (R), normal posterior cervical (L), normal posterior cervical (R), normal submandibular (L) , normal submandibular (R), normal supraclavicular (L), normal supraclavicular ( R), normal axillary (L), normal axillary (R), normal inguinal (L), normal inguinal (R), normal other ISIDRO YOON Dec 29, 2016 16:38
[2016-12-29 20:00] VITALS: BP 138/59
[2016-12-30] VITALS: BP 147/51
[2016-12-30 04:00] VITALS: BP 147/58
[2016-12-30] MEDS: NovoLOG Insulin Flexpen SUBQ SCH ×2 (06:31→13:27)
[2016-12-30 08:00] VITALS: BP 143/67
[2016-12-30 08:25] LABS: BASOPHILS % (AUTO) 0.8 % (0.0-2.0); EOSINOPHILS % (AUTO) 4.5 % (0.0-3.0); LYMPHOCYTES % (AUTO) 26.8 % (20.0-45.0); MEAN CORPUSCULAR HEMOGLOBIN 22.5 PG (27.0-31.0); MEAN CORPUSCULAR HGB CONC 30.3 G/DL (32.0-36.0); MEAN CORPUSCULAR VOLUME 74 FL (80-99); MONOCYTES % (AUTO) 5.8 % (1.0-10.0); NEUTROPHILS % (AUTO) 62.2 % (45.0-75.0); PLATELET COUNT 192 K/UL (150-450); RED BLOOD COUNT 4.59 M/UL (4.70-6.10); RED CELL DISTRIBUTION WIDTH 13.7 % (11.6-14.8); WHITE BLOOD COUNT 6.2 K/UL (4.8-10.8)
--- NOTE | 2016-12-30 08:27 | General Progress Note ---
Assessment/Plan Status: doing well, stable Assessment/Plan 1. Altered level of consciousness - 2nd to metabolic encephalopathy - resolved. 2. Catheter-associated urinary tract infection - D/C to assisted living loving care today with oral Keflex. 3. ARF (acute renal failure) - Improved. 4. HTN - Cont Norvasc 5 mg one po daily. Cont enalapril 20 mg one po daily. 5. DM II - will D/C home with home meds. Subjective Date patient seen: Dec 30, 2016 Time patient seen: 08:10 Constitutional: Reports: no symptoms HEENT: Reports: no symptoms Cardiovascular: Reports: no symptoms Respiratory: Reports: no symptoms Gastrointestinal/Abdominal: Reports: no symptoms Genitourinary: Reports: no symptoms Neurologic/Psychiatric: Reports: no symptoms Endocrine: Reports: no symptoms Hematologic/Lymphatic: Reports: no symptoms Allergies: Coded Allergies: No Known Allergies (Unverified , 11/26/14) Subjective Patient is afebrile. no sob or chest pain. no fever or chills. no nausea or vomiting. He is doing better today and will be discharged back to assisted living. Objective Last 24 Hour Vital Signs Date Time Temp Pulse Resp B/P (MAP) Pulse Ox O2 Delivery O2 Flow Rate FiO2 12/30/16 04:00 98.1 60 18 147/58 94 Room Air 12/30/16 03:50 56 12/30/16 00:00 54 12/30/16 00:00 97.9 60 18 147/51 Room Air 12/29/16 21:24 138/59 12/29/16 20:00 99.1 60 18 138/59 95 Room Air 12/29/16 20:00 60 12/29/16 16:00 54 12/29/16 16:00 98.9 54 19 140/61 94 Room Air 12/29/16 12:00 50 12/29/16 12:00 97.9 59 21 139/58 97 Room Air 12/29/16 10:04 58 131/59 12/29/16 10:03 131/59 Laboratory Tests 12/30/16 07:40: White Blood Count [Pending], Red Blood Count [Pending], Hemoglobin [Pending], Hematocrit [Pending], Mean Corpuscular Volume [Pending], Mean Corpuscular Hemoglobin [Pending], Mean Corpuscular Hemoglobin Concent [Pending], Red Cell Distribution Width [Pending], Platelet Count [Pending], Mean Platelet Volume [ Pending], Neutrophils (%) (Auto) [Pending], Lymphocytes (%) (Auto) [Pending], Monocytes (%) (Auto) [Pending], Eosinophils (%) (Auto) [Pending], Basophils (%) (Auto) [Pending], Sodium Level [Pending], Potassium Level [Pending], Chloride Level [Pending], Carbon Dioxide Level [Pending], Blood Urea Nitrogen [Pending], Creatinine [Pending], Estimat Glomerular Filtration Rate [Pending], Glucose Level [Pending], Calcium Level [Pending] Height (Feet): 5 Height (Inches): 8.00 Weight (Pounds): 150 General Appearance: no apparent distress, alert Neck: non-tender, normal alignment, supple Cardiovascular: normal peripheral pulses, normal rate, regular rhythm Respiratory/Chest: chest wall non-tender, lungs clear, normal breath sounds Abdomen: normal bowel sounds, non tender, soft Extremities: normal range of motion, non-tender Edema: no edema noted Arm (L), no edema noted Arm (R), no edema noted Leg (L), no edema noted Leg (R), no edema noted Pedal (L), no edema noted Pedal (R), no edema noted Generalized Neurologic: no motor/sensory deficits, alert, responsive Skin: warm/dry Lymphatic: normal anterior cervical (L), normal anterior cervical (R), normal posterior cervical (L), normal posterior cervical (R), normal submandibular (L) , normal submandibular (R), normal supraclavicular (L), normal supraclavicular ( R), normal axillary (L), normal axillary (R), normal inguinal (L), normal inguinal (R), normal other ISIDRO YOON Dec 30, 2016 08:27
[2016-12-30] MEDS ORDERED: CEPHALEXIN500 MG ORAL (08:31)
[2016-12-30 08:43] LABS: ANION GAP 12 (5-15); CALCIUM 8.9 mg/dL (8.6-10.2); CARBON DIOXIDE 26 mEQ/L (20-30); CHLORIDE 103 mEQ/L (98-107); CREATININE 1.4 mg/dL (0.7-1.2); HEMOLYSIS 5; POTASSIUM 4.2 mEQ/L (3.4-4.9); SODIUM 141 mEQ/L (135-145)
[2016-12-30] MEDS: Aspirin EC 81mg tab ORAL SCH (09:31)
[2016-12-30] MEDS: Miralax 17gm pkt ORAL SCH (09:31)
[2016-12-30] MEDS: Heparin 5000 units/ml inj SUBQ SCH (09:35)
[2016-12-30] MEDS: Citalopram 20mg Tab ORAL SCH (09:35)
[2016-12-30 12:00] VITALS: BP 140/77
--- NOTE | 2016-12-30 12:00 | Infectious Diseases Prog Note ---
Assessment/Plan Assessment/Plan A; Complicated UTI with E.coli AMS DM type 2 HPN CAD Anemia Acute renal failure improving P Agree with discharge on PO Keflex X 3 days Subjective ROS Limited/Unobtainable: Yes Respiratory: Reports: no symptoms Genitourinary: Reports: no symptoms Allergies: Coded Allergies: No Known Allergies (Unverified , 11/26/14) Objective Vital Signs Last 24 Hour Vital Signs Date Time Temp Pulse Resp B/P (MAP) Pulse Ox O2 Delivery O2 Flow Rate FiO2 12/30/16 09:32 143/67 12/30/16 09:32 68 143/67 12/30/16 08:00 97.0 68 19 143/67 95 Room Air 12/30/16 04:00 98.1 60 18 147/58 94 Room Air 12/30/16 03:50 56 12/30/16 00:00 54 12/30/16 00:00 97.9 60 18 147/51 Room Air 12/29/16 21:24 138/59 12/29/16 20:00 99.1 60 18 138/59 95 Room Air 12/29/16 20:00 60 12/29/16 16:00 54 12/29/16 16:00 98.9 54 19 140/61 94 Room Air 12/29/16 12:00 50 12/29/16 12:00 97.9 59 21 139/58 97 Room Air Height (Feet): 5 Height (Inches): 8.00 Weight (Pounds): 150 General Appearance: no acute distress HEENT: mucous membranes moist Respiratory/Chest: lungs clear Cardiovascular: normal rate Abdomen: soft, non tender Genitourinary: other - Suprapubic catheter Extremities: no edema Neurologic/Psychiatric: alert, responsive Laboratory Tests Test 12/30/16 07:40 White Blood Count 6.2 K/UL (4.8-10.8) Red Blood Count 4.59 M/UL (4.70-6.10) L Hemoglobin 10.3 G/DL (14.2-18.0) L Hematocrit 34.1 % (42.0-52.0) L Mean Corpuscular Volume 74 FL (80-99) L Mean Corpuscular Hemoglobin 22.5 PG (27.0-31.0) L Mean Corpuscular Hemoglobin Concent 30.3 G/DL (32.0-36.0) L Red Cell Distribution Width 13.7 % (11.6-14.8) Platelet Count 192 K/UL (150-450) Mean Platelet Volume 6.0 FL (6.5-10.1) L Neutrophils (%) (Auto) 62.2 % (45.0-75.0) Lymphocytes (%) (Auto) 26.8 % (20.0-45.0) Monocytes (%) (Auto) 5.8 % (1.0-10.0) Eosinophils (%) (Auto) 4.5 % (0.0-3.0) H Basophils (%) (Auto) 0.8 % (0.0-2.0) Sodium Level 141 mEQ/L (135-145) Potassium Level 4.2 mEQ/L (3.4-4.9) Chloride Level 103 mEQ/L (98-107) Carbon Dioxide Level 26 mEQ/L (20-30) Anion Gap 12 (5-15) Blood Urea Nitrogen 22 mg/dL (7-23) Creatinine 1.4 mg/dL (0.7-1.2) H Estimat Glomerular Filtration Rate mL/min (>60) Glucose Level 155 mg/dL (74-106) H Calcium Level 8.9 mg/dL (8.6-10.2) Current Medications Medications (Trade) Dose Ordered Sig/Charlene Route PRN Reason Start Time Stop Time Status Last Admin Dose Admin Acetaminophen (Tylenol) 325 mg Q6H PRN ORAL Mild Pain/Temp > 100.5 12/27/16 12:00 01/26/17 11:59 Al Hydroxide/Mg Hydroxide (Mylanta II) 30 ml Q6H PRN ORAL dyspepsia 12/26/16 23:00 01/25/17 22:59 Amlodipine Besylate (Norvasc) 5 mg DAILY ORAL 12/27/16 13:00 01/26/17 12:59 12/30/16 09:32 Aspirin (Ecotrin) 81 mg DAILY ORAL 12/27/16 13:00 01/26/17 12:59 12/30/16 09:31 Ceftriaxone Sodium 1 gm/ Dextrose 55 ml @ 110 mls/hr Q24H IVPB 12/29/16 13:00 01/05/17 12:59 12/29/16 13:03 Citalopram Hydrobromide (celeXA) 40 mg DAILY ORAL 12/27/16 13:00 01/26/17 12:59 12/30/16 09:35 Clopidogrel Bisulfate (Plavix) 75 mg DAILY ORAL 12/27/16 13:00 01/26/17 12:59 12/30/16 09:32 Dextrose (Dextrose 50%) STAT PRN IV Hypoglycemia 12/26/16 23:00 01/25/17 22:59 Enalapril Maleate (Vasotec) 20 mg EVERY 12 HOURS ORAL 12/27/16 12:00 01/26/17 11:59 12/30/16 09:32 Heparin Sodium (Porcine) (Heparin 5000 units/ml) 5,000 units EVERY 12 HOURS SUBQ 12/27/16 00:00 01/26/17 00:00 12/30/16 09:35 Insulin Aspart (NovoLOG) BEFORE MEALS AND HS SUBQ 12/27/16 08:00 01/26/17 07:59 12/30/16 06:31 Magnesium Hydroxide (Mom) 30 ml HSPRN PRN ORAL Constipation 12/26/16 23:00 01/25/17 22:59 Ondansetron HCl (Zofran) 4 mg Q6H PRN IVP Nausea & Vomiting 12/26/16 23:00 01/25/17 22:59 Polyethylene Glycol (Miralax) 17 gm DAILY ORAL 12/27/16 12:00 01/26/17 11:59 12/30/16 09:31 Zolpidem Tartrate (Ambien) 5 mg DAILYPRN PRN ORAL Insomnia 12/26/16 23:00 01/02/17 22:59 MIKE COTO Dec 30, 2016 12:00
[2016-12-30] MEDS: cefTRIAXone 1 GM in D5W 55 ML IVPB SCH (13:27)
--- NOTE | 2016-12-31 06:45 | Discharge Summary ---
DATE OF ADMISSION: 12/26/2016 DATE OF DISCHARGE: 12/30/2016 HOSPITAL COURSE: This is an 86-year-old [place] male, who was brought in for complaint of altered mental status and confusion for the past few days prior to admission. The patient as an outpatient had a urine infection and was started on oral antibiotic nitrofurantoin, but did not respond with oral antibiotic treatment. The patient was brought in for IV antibiotic. He was started on IV Zosyn and vancomycin and later on was switched to Rocephin per urine culture. The patient responded to treatment well. The patient also had acute renal failure and dehydration. He was started on IV fluid and his renal function improved and dehydration resolved. The patient was ready to go back to the [facility], on the day of discharge. DISCHARGE DIAGNOSES: Include: 1. Metabolic encephalopathy. 2. Urinary tract infection. 3. Acute renal failure, resolved. 4. Hypertension. 5. Diabetes mellitus, type 2. DISCHARGE MEDICATIONS: Include Keflex 500 mg q.6 h. for four days plus home medications including Norvasc 5 mg daily, aspirin 81 mg daily, Celexa 40 mg nightly, Plavix 75 mg daily, enalapril 20 mg q.12 h., vitamin D 50,000 units weekly, metformin 500 mg b.i.d., and MiraLAX 17 g powder mixed with water daily. DISPOSITION: The patient will be discharged back to the [facility] and I will be following the patient within one week. Suad Loving M.D. DR: Eduardo JOB#: [id number] CC: EMILY
== END 2016-12-30 14:15 | disposition home or self-care (01) | DRG 698 ==
LOC: EDBD 19:33 → EMR 19:55 → 2E 20:03 → EDBEDREQ 21:38
DX: T83.510A Infection and inflammatory reaction due to cystostomy catheter, initial encounter (principal); G93.41 Metabolic encephalopathy; N17.9 Acute kidney failure, unspecified; N39.0 Urinary tract infection, site not specified; E11.9 Type 2 diabetes mellitus without complications; I10 Essential (primary) hypertension; B96.20 Unspecified Escherichia coli [E. coli] as the cause of diseases classified elsewhere; D64.9 Anemia, unspecified; I25.10 Atherosclerotic heart disease of native coronary artery without angina pectoris; R41.82 Altered mental status, unspecified; Y83.8 Other surgical procedures as the cause of abnormal reaction of the patient, or of later complication, without mention of misadventure at the time of the procedure; Y92.89 Other specified places as the place of occurrence of the external cause
CPT/HCPCS: 36415; 71010; 80048; 80053; 80300; 80329; 81003; 82140; 82550; 82962; 83605; 83880; 84443; 84484; 85025; 85610; 85730; 87040; 87081; 87086; 87181; 93005; 99285; J1815

== ENCOUNTER 2017-03-27 18:27 | Inpatient (IN) | payer MEDICARE, MEDICAID ==
[~2017-03-27] VITALS: Ht 167.6 cm; Wt 64.9 kg
[~2017-03-27 18:27] MED LIST changes: +ASPIRIN81 MG ORAL; +CEPHALEXIN500 MG ORAL
[2017-03-27 18:42] VITALS: BP 159/64
[2017-03-27 19:21] LABS: BASOPHILS % (AUTO) 1.1 % (0.0-2.0); EOSINOPHILS % (AUTO) 2.7 % (0.0-3.0); KETONES,URINE NEGATIVE (NEGATIVE); LEUKOCYTE ESTERASE ,URINE 3+ (NEGATIVE); LYMPHOCYTES % (AUTO) 22.4 % (20.0-45.0); MEAN CORPUSCULAR HEMOGLOBIN 23.5 PG (27.0-31.0); MEAN CORPUSCULAR HGB CONC 31.4 G/DL (32.0-36.0); MEAN CORPUSCULAR VOLUME 75 FL (80-99); MEAN PLATELET VOLUME 6.3 FL (6.5-10.1); MONOCYTES % (AUTO) 5.9 % (1.0-10.0); NITRITE,URINE NEGATIVE (NEGATIVE); PH,URINE 7 (4.5-8.0); PLATELET COUNT 170 K/UL (150-450); PROTEIN,URINE 3+ (NEGATIVE); RED BLOOD COUNT 4.25 M/UL (4.70-6.10); RED CELL DISTRIBUTION WIDTH 13.1 % (11.6-14.8); UROBILINOGEN,URINE NORMAL MG/DL (0.0-1.0); WHITE BLOOD COUNT 6.3 K/UL (4.8-10.8)
[2017-03-27 19:22] LABS: APPEARANCE,URINE SLIGHTLY CLOUDY
[2017-03-27 19:33] LABS: BACTERIA,URINE MODERATE /HPF; RBC,URINE 60-80 /HPF (0 - 0); SQUAMOUS EPITHELIAL CELL,UR FEW /LPF (NONE/OCC); WBC,URINE 20-30 /HPF (0 - 0)
[2017-03-27 19:37] LABS: ANION GAP 9 mmol/L (5-15); CALCIUM 8.7 MG/DL (8.5-10.1); CARBON DIOXIDE 27 MMOL/L (21-32); CHLORIDE 104 MMOL/L (98-107); CREATININE 1.8 MG/DL (0.55-1.30); POTASSIUM 4.5 MMOL/L (3.5-5.1); SODIUM 139 MMOL/L (136-145)
[2017-03-27 19:42] VITALS: BP 146/57
[2017-03-27 19:48] LABS: REFLEX LACTIC ACID YES OR NO YES
[2017-03-27 19:49] LABS: ALANINE AMINOTRANSFERASE 12 U/L (12-78); ALBUMIN/GLOBULIN RATIO 1.2 (1.0-2.7); ASPARTATE AMINO TRANSFERASE 15 U/L (15-37); CKMB 1.8 NG/ML (0.0-3.6); TOTAL PROTEIN 6.3 G/DL (6.4-8.2)
[2017-03-27] MEDS ORDERED: Cefepime HCl 1 GM in D5W 55 ML IVPB ONE (20:00)
[2017-03-27] MEDS ORDERED: Cefepime 1gm vial ONE (20:08)
--- NOTE | 2017-03-27 21:02 | Emergency Room Report ---
History of Present Illness General Chief Complaint: General Complaint Source: Patient, EMS Present Illness HPI 86-year-old male presents ED for evaluation. Per EMS patient noted to have pain to his lower abdomen. Per EMS patient notes pain around the suprapubic catheter site. Also noted to have some drainage around the site. Upon arrival patient showing no signs of distress. No fevers or chills no nausea or vomiting. No other aggravating relieving factors. No other associated symptoms Allergies: Coded Allergies: No Known Allergies (Unverified , 11/26/14) Patient History Past Medical History: DM, HTN Pertinent Family History: none Social History: Denies: smoking, alcohol use, drug use Immunizations: UTD Reviewed Nursing Documentation: PMH: Agreed, PSxH: Agreed Nursing Documentation-PMH Past Medical History: No History, Except For Hx Cardiac Problems: Yes Hx Hypertension: Yes Hx Diabetes: Yes Hx Cancer: No Hx Gastrointestinal Problems: No Hx Neurological Problems: No - Insomnia Review of Systems All Other Systems: negative except mentioned in HPI Physical Exam Vital Signs Date Time Temp Pulse Resp B/P (MAP) Pulse Ox O2 Delivery O2 Flow Rate FiO2 03/27/ 18:22 98.8 70 16 149/64 100 Room Air Sp02 EP Interpretation: reviewed, normal General Appearance: no apparent distress, alert, GCS 15, non-toxic Head: normocephalic, atraumatic Eyes: bilateral eye normal inspection, bilateral eye PERRL ENT: hearing grossly normal, normal pharynx, no angioedema, normal voice Neck: full range of motion, supple/symm/no masses Respiratory: chest non-tender, lungs clear, normal breath sounds, speaking full sentences Cardiovascular #1: regular rate, rhythm, no edema Cardiovascular #2: 2+ carotid (R), 2+ carotid (L), 2+ radial (R), 2+ radial (L) , 2+ dorsalis pedis (R), 2+ dorsalis pedis (L) Gastrointestinal: normal bowel sounds, non tender, soft, non-distended, no guarding, no rebound, other - discharge around suprapubic catheter site Rectal: deferred Genitourinary: normal inspection, no CVA tenderness Musculoskeletal: back normal, gait/station normal, normal range of motion, non- tender Neurologic: alert, oriented x3, responsive, motor strength/tone normal, sensory intact, speech normal Psychiatric: judgement/insight normal, memory normal, mood/affect normal, no suicidal/homicidal ideation Reflexes: 3+ bicep (R), 3+ bicep (L), 3+ tricep (R), 3+ tricep (L), 3+ knee (R) , 3+ knee (L) Skin: normal color, no rash, warm/dry, well hydrated Lymphatic: no adenopathy Medical Decision Making Diagnostic Impression: Primary Impression: Abdominal wall cellulitis Additional Impressions: UTI (urinary tract infection) Qualified Codes: N39.0 - Urinary tract infection, site not specified Sepsis Qualified Codes: A41.9 - Sepsis, unspecified organism Pneumonia Qualified Codes: J18.1 - Lobar pneumonia, unspecified organism ER Course Hospital Course 86-year-old male presents ED with pain around the suprapubic catheter site. Discharge noted Differential diagnoses include: Pneumonia, UTI, sepsis, cellulitis Clinical course Patient placed on stretcher. On service attendant cafeteria with stable vitals are ED course. After initial history and physical, I ordered labs, IV fluids, EKG, chest x-ray, blood cultures, UA. Labs - BUN/Cr elevated, noted leukocytosis, troponins negative, lactate > 2, UA grossly positive for UTI EKG - NSR, 1st degree av block CXR - ? LLL infiltrate Abx given. given 30cc/kg fluid bolus. Case discussed with Dr Loving and they agreed to admit patient to their service for further care and support I feel this is a highly complex case requiring extensive working including EKG/ Rhythm strip, Xray/CT/US, Blood/urine lab work, repeat exams while in ED, and administration of strong opiates/narcotics for pain control, admission to hospital or close patient follow up. Diagnosis - abd wall cellulitis, UTI, sepsis, pneumonia Patient admitted to floor in serious condition Labs Test 03/27/17 18:50 03/27/17 19:00 03/27/17 20:20 White Blood Count 6.3 K/UL (4.8-10.8) Red Blood Count 4.25 M/UL (4.70-6.10) Hemoglobin 10.0 G/DL (14.2-18.0) Hematocrit 31.8 % (42.0-52.0) Mean Corpuscular Volume 75 FL (80-99) Mean Corpuscular Hemoglobin 23.5 PG (27.0-31.0) Mean Corpuscular Hemoglobin Concent 31.4 G/DL (32.0-36.0) Red Cell Distribution Width 13.1 % (11.6-14.8) Platelet Count 170 K/UL (150-450) Mean Platelet Volume 6.3 FL (6.5-10.1) Neutrophils (%) (Auto) 68.0 % (45.0-75.0) Lymphocytes (%) (Auto) 22.4 % (20.0-45.0) Monocytes (%) (Auto) 5.9 % (1.0-10.0) Eosinophils (%) (Auto) 2.7 % (0.0-3.0) Basophils (%) (Auto) 1.1 % (0.0-2.0) Urine Color Pale yellow Urine Appearance Slightly cloudy Urine pH 7 (4.5-8.0) Urine Specific [place] 1.010 (1.005-1.035) Urine Protein 3+ (NEGATIVE) Urine Glucose (UA) Negative (NEGATIVE) Urine Ketones Negative (NEGATIVE) Urine Occult Blood 5+ (NEGATIVE) Urine Nitrite Negative (NEGATIVE) Urine Bilirubin Negative (NEGATIVE) Urine Urobilinogen Normal MG/DL (0.0-1.0) Urine Leukocyte Esterase 3+ (NEGATIVE) Urine RBC 60-80 /HPF (0 - 0) Urine WBC 20-30 /HPF (0 - 0) Urine Squamous Epithelial Cells Few /LPF (NONE/OCC) Urine Bacteria Moderate /HPF (NONE) Sodium Level 139 MMOL/L (136-145) Potassium Level 4.5 MMOL/L (3.5-5.1) Chloride Level 104 MMOL/L (98-107) Carbon Dioxide Level 27 MMOL/L (21-32) Anion Gap 9 mmol/L (5-15) Blood Urea Nitrogen 34 mg/dL (7-18) Creatinine 1.8 MG/DL (0.55-1.30) Estimat Glomerular Filtration Rate mL/min (>60) Glucose Level 186 MG/DL (74-106) Calcium Level 8.7 MG/DL (8.5-10.1) Total Bilirubin 0.5 MG/DL (0.2-1.0) Aspartate Amino Transf (AST/SGOT) 15 U/L (15-37) Alanine Aminotransferase (ALT/SGPT) 12 U/L (12-78) Alkaline Phosphatase 56 U/L (46-116) Total Creatine Kinase 71 U/L (26-308) Creatine Kinase MB 1.8 NG/ML (0.0-3.6) Creatine Kinase MB Relative Index 2.5 Troponin I 0.007 ng/mL (0.000-0.056) Total Protein 6.3 G/DL (6.4-8.2) Albumin 3.5 G/DL (3.4-5.0) Globulin 2.8 g/dL Albumin/Globulin Ratio 1.2 (1.0-2.7) Lactic Acid Level 2.20 mmol/L (0.66-2.22) EKG Diagnostic Results Rate: bradycardiac Rhythm: other - 1st degree av block ST Segments: no acute changes ASA given to the pt in ED: No Rhythm Strip Diag. Results EP Interpretation: yes Rhythm: NSR, no PVC's, no ectopy Chest X-Ray Diagnostic Results Chest X-Ray Diagnostic Results : Chest X-Ray Ordered: Yes # of Views/Limited/Complete: 1 View Indication: Shortness of Breath EP Interpretation: Yes Interpretation: no pneumothorax, no acute cardiopulmonary disease, other - effusion Impression: Other - ? pneumonia Electronically Signed by: Electronically signed by Avery Pereyra MD Last Vital Signs Date Time Temp Pulse Resp B/P (MAP) Pulse Ox O2 Delivery O2 Flow Rate FiO2 03/27/17 19:42 60 16 146/57 96 Room Air 03/27/17 18:42 98.8 Status: improved Disposition: ADMITTED INPATIENT Condition: Serious Referrals: ISIDRO LOVING (PCP) AVERY PEREYRA M.D. Mar 27, 2017 21:02
[2017-03-27] MEDS ORDERED: Azithromycin 500mg Inj IV ONE ×2 (21:10→21:19)
[2017-03-27] MEDS ORDERED: Azithromycin 500 MG in NS 275 ML IV ONE (21:15)
[2017-03-27] MEDS ORDERED: DiphenhydrAMINE 50mg/ml Inj IVP ONE (21:45)
[2017-03-27] MEDS ORDERED: Solu-MEDROL 125mg Inj IVP ONE (21:45)
[2017-03-27 21:55] VITALS: BP 135/42
[2017-03-27] MEDS ORDERED: Miralax 17gm pkt ORAL PRN (23:00)
[2017-03-28 00:10] VITALS: BP 142/63
[2017-03-28] MEDS ORDERED: NovoLOG Insulin Flexpen SUBQ ONE (03:30)
[2017-03-28 04:25] VITALS: BP 145/60
[2017-03-28] MEDS: NovoLOG Insulin Flexpen SUBQ SCH ×4 (06:23→22:09)
[2017-03-28 08:00] VITALS: BP 147/75
[2017-03-28] MEDS: Cefepime HCl 500 MG in D5W 55 ML IV SCH (08:17)
[2017-03-28] MEDS: Aspirin Baby 81mg ORAL SCH (08:23)
[2017-03-28 08:33] LABS: BASOPHILS % (AUTO) 0.1 % (0.0-2.0); EOSINOPHILS % (AUTO) 0.1 % (0.0-3.0); LYMPHOCYTES % (AUTO) 18.4 % (20.0-45.0); MEAN CORPUSCULAR HEMOGLOBIN 23.3 PG (27.0-31.0); MEAN CORPUSCULAR HGB CONC 31.2 G/DL (32.0-36.0); MEAN CORPUSCULAR VOLUME 75 FL (80-99); MEAN PLATELET VOLUME 6.2 FL (6.5-10.1); MONOCYTES % (AUTO) 0.4 % (1.0-10.0); NEUTROPHILS % (AUTO) 81.1 % (45.0-75.0); PLATELET COUNT 175 K/UL (150-450); RED CELL DISTRIBUTION WIDTH 12.8 % (11.6-14.8)
[2017-03-28 08:51] LABS: ANION GAP 9 mmol/L (5-15); CALCIUM 8.6 MG/DL (8.5-10.1); CARBON DIOXIDE 25 MMOL/L (21-32); CHLORIDE 108 MMOL/L (98-107); CREATININE 1.5 MG/DL (0.55-1.30); POTASSIUM 4.2 MMOL/L (3.5-5.1); SODIUM 142 MMOL/L (136-145)
[2017-03-28] MEDS ORDERED: Citalopram 20mg Tab ORAL SCH ×2 (09:00)
--- NOTE | 2017-03-28 10:40 | Diagnostic Imaging Report ---
Indication: Chest pain Technique: XRAY CHEST 1 V Comparison: 03/28/17 Findings: There is poor inspiration with mild perihilar and basilar linear opacities. Cardiomediastinal silhouette is grossly stable. Atherosclerotic changes are seen. Degenerative changes of the spine are noted. Impression: Poor inspiration with mild perihilar and basilar linear opacities could represent atelectasis. Followup PA and lateral views of the chest recommended.
[2017-03-28] MEDS: Sodium Chloride 500ML 550 ML IV SCH ×2 (11:49→22:10)
[2017-03-28 12:00] VITALS: BP 121/67
--- NOTE | 2017-03-28 13:16 | General Progress Note ---
Assessment/Plan Status: stable Assessment/Plan 1. UTII with suprapubic cath - cont cefepime 1 gm q 12 hrs and follow up urine cx. 2. Dehydration - start IV fluid NS at 50 cc/hr x one liter. 3. Atelectasis - repeat CXR ordered due to poor inspiration on previous CXR. 4. HTN - cont home meds. 5. DM II - on SSI. 6. Depression - cont home med. Subjective Date patient seen: Mar 28, 2017 Time patient seen: 11:00 Constitutional: Reports: no symptoms HEENT: Reports: no symptoms Cardiovascular: Reports: no symptoms Respiratory: Reports: no symptoms Gastrointestinal/Abdominal: Reports: no symptoms Genitourinary: Reports: no symptoms Neurologic/Psychiatric: Reports: no symptoms Endocrine: Reports: no symptoms Hematologic/Lymphatic: Reports: no symptoms Allergies: Coded Allergies: No Known Allergies (Unverified , 11/26/14) Subjective this morning, he feeling better and he states his dysuria and abd pain has resolved. no fever or chills. no sob or chest pain. Objective Last 24 Hour Vital Signs Date Time Temp Pulse Resp B/P (MAP) Pulse Ox O2 Delivery O2 Flow Rate FiO2 03/28/17 12:00 98.1 82 20 121/67 97 Room Air 03/28/17 08:23 64 147/75 03/28/17 08:22 147/75 03/28/17 08:00 97.9 64 19 147/75 Room Air 03/28/17 04:25 98.0 60 18 145/60 93 Room Air 03/28/17 00:10 98.4 57 19 142/63 94 Room Air 03/27/17 23:55 60 14 140/48 96 Room Air 03/27/17 21:55 59 14 135/42 95 Room Air 03/27/17 19:42 60 16 146/57 96 Room Air 03/27/17 18:42 98.8 63 16 159/64 100 Room Air 03/27/17 18:22 98.8 70 16 149/64 100 Room Air Intake and Output 03/28/17 03/29/17 19:00 07:00 Intake Total 55 ml Balance 55 ml IV Total 55 ml Laboratory Tests 03/27/17 18:50: White Blood Count 6.3, Red Blood Count 4.25L, Hemoglobin 10.0L, Hematocrit 31.8L , Mean Corpuscular Volume 75L, Mean Corpuscular Hemoglobin 23.5L, Mean Corpuscular Hemoglobin Concent 31.4L, Red Cell Distribution Width 13.1, Platelet Count 170, Mean Platelet Volume 6.3L, Neutrophils (%) (Auto) 68.0, Lymphocytes (%) (Auto) 22.4, Monocytes (%) (Auto) 5.9, Eosinophils (%) (Auto) 2.7, Basophils (%) (Auto) 1.1, Urine Color Pale yellow, Urine Appearance Slightly cloudy, Urine pH 7, Urine Specific [place] 1.010, Urine Protein 3+H, Urine Glucose (UA) Negative, Urine Ketones Negative, Urine Occult Blood 5+H, Urine Nitrite Negative, Urine Bilirubin Negative, Urine Urobilinogen Normal, Urine Leukocyte Esterase 3+H, Urine RBC 60-80H, Urine WBC 20-30H, Urine Squamous Epithelial Cells Few, Urine Bacteria ModerateH, Sodium Level 139, Potassium Level 4.5, Chloride Level 104, Carbon Dioxide Level 27, Anion Gap 9, Blood Urea Nitrogen 34H, Creatinine 1.8H, Estimat Glomerular Filtration Rate , Glucose Level 186H, Calcium Level 8.7, Total Bilirubin 0.5, Aspartate Amino Transf (AST/SGOT) 15, Alanine Aminotransferase (ALT/SGPT) 12, Alkaline Phosphatase 56, Total Creatine Kinase 71, Creatine Kinase MB 1.8, Creatine Kinase MB Relative Index 2.5, Troponin I 0.007, Total Protein 6.3L, Albumin 3.5 , Globulin 2.8, Albumin/Globulin Ratio 1.2 03/27/17 19:00: Lactic Acid Level 2.20 03/27/17 20:20: Lactic Acid Level 1.90 03/28/17 07:30: White Blood Count 7.0, Red Blood Count 4.50L, Hemoglobin 10.5L, Hematocrit 33.6L , Mean Corpuscular Volume 75L, Mean Corpuscular Hemoglobin 23.3L, Mean Corpuscular Hemoglobin Concent 31.2L, Red Cell Distribution Width 12.8, Platelet Count 175, Mean Platelet Volume 6.2L, Neutrophils (%) (Auto) 81.1H, Lymphocytes (%) (Auto) 18.4L, Monocytes (%) (Auto) 0.4L, Eosinophils (%) (Auto) 0.1, Basophils (%) (Auto) 0.1, Sodium Level 142, Potassium Level 4.2, Chloride Level 108H, Carbon Dioxide Level 25, Anion Gap 9, Blood Urea Nitrogen 30H, Creatinine 1.5H, Estimat Glomerular Filtration Rate , Glucose Level 180H, Calcium Level 8.6 Height (Feet): 5 Height (Inches): 6.00 Weight (Pounds): 143 General Appearance: no apparent distress, alert EENT: normal ENT inspection Neck: non-tender, normal alignment, supple Cardiovascular: normal peripheral pulses, normal rate, regular rhythm Respiratory/Chest: chest wall non-tender, lungs clear, normal breath sounds, no respiratory distress Abdomen: normal bowel sounds, non tender, soft Extremities: normal range of motion, non-tender Edema: no edema noted Arm (L), no edema noted Arm (R), no edema noted Leg (L), no edema noted Leg (R), no edema noted Pedal (L), no edema noted Pedal (R), no edema noted Generalized Neurologic: no motor/sensory deficits, alert, responsive Skin: warm/dry Lymphatic: normal anterior cervical (L), normal anterior cervical (R), normal posterior cervical (L), normal posterior cervical (R), normal submandibular (L) , normal submandibular (R), normal supraclavicular (L), normal supraclavicular ( R), normal axillary (L), normal axillary (R), normal inguinal (L), normal inguinal (R), normal other ISIDRO YOON Mar 28, 2017 13:16
--- NOTE | 2017-03-28 15:29 | Cardiology Report ---
APPROVED REPORT EKG Measurement Heart [id number] Sinus bradycardia with 1st degree AV block Septal infarct, age undetermined Abnormal ECG
[2017-03-28 16:00] VITALS: BP 146/76
[2017-03-28] MEDS ORDERED: Cefepime HCl 500 MG in D5W 55 ML IV SCH (18:00)
[2017-03-28 20:13] VITALS: BP 146/72
[2017-03-28] MEDS ORDERED: Tubing IV Secondary IV ONE (21:17)
[2017-03-28] MEDS ORDERED: NS 500ML ONE (21:17)
[2017-03-28] MEDS: Heparin 5000 units/ml inj SUBQ SCH (22:07)
[2017-03-29 00:05] VITALS: BP 141/65
[2017-03-29 04:00] VITALS: BP 136/65
[2017-03-29] MEDS: NovoLOG Insulin Flexpen SUBQ SCH ×4 (06:34→20:43)
[2017-03-29 07:03] LABS: BASOPHILS % (AUTO) 0.4 % (0.0-2.0); EOSINOPHILS % (AUTO) 0.3 % (0.0-3.0); MEAN CORPUSCULAR HEMOGLOBIN 23.5 PG (27.0-31.0); MEAN CORPUSCULAR HGB CONC 32.1 G/DL (32.0-36.0); MEAN CORPUSCULAR VOLUME 73 FL (80-99); MEAN PLATELET VOLUME 6.6 FL (6.5-10.1); MONOCYTES % (AUTO) 6.3 % (1.0-10.0); PLATELET COUNT 176 K/UL (150-450); RED BLOOD COUNT 4.37 M/UL (4.70-6.10); RED CELL DISTRIBUTION WIDTH 12.9 % (11.6-14.8); WHITE BLOOD COUNT 8.6 K/UL (4.8-10.8)
[2017-03-29 07:26] LABS: ANION GAP 10 mmol/L (5-15); CALCIUM 8.6 MG/DL (8.5-10.1); CARBON DIOXIDE 24 MMOL/L (21-32); CHLORIDE 108 MMOL/L (98-107); CREATININE 1.5 MG/DL (0.55-1.30); SODIUM 142 MMOL/L (136-145)
--- NOTE | 2017-03-29 07:45 | History and Physical Report ---
DATE OF ADMISSION: 03/27/2017 CHIEF COMPLAINT: Lower abdominal pain and slight confusion. HISTORY OF PRESENT ILLNESS: This is an 86-year-old Palestinian male who came into the emergency room from assisted living due to complaint of lower abdominal pain and slight confusion per nursing staff at the assisted living. The patient had no fever or chills. No nausea or vomiting. He was on oral antibiotic for UTI as outpatient and he did not respond well to the treatment. The patient was brought in for evaluation and possible admission for urinary tract infection. UA in the emergency room showed high leukocytes and RBC and WBC and the patient was admitted for IV antibiotics for UTI. PAST MEDICAL HISTORY: Includes history of hypertension, diabetes, Alzheimer disease, coronary artery disease, and depression. PAST SURGICAL HISTORY: Noncontributory. MEDICATIONS: Please see the medication list from [facility]. ALLERGIES: Azithromycin in the emergency room. SOCIAL HISTORY: Denies smoking, alcohol, or drug use. FAMILY HISTORY: Noncontributory. REVIEW OF SYSTEMS: Everything was negative except per history of present illness. PHYSICAL EXAMINATION: VITAL SIGNS: Includes temperature 98.8, pulse 70, respirations 16, blood pressure 149/64, and pulse ox is 100% on room air. GENERAL: No acute distress. Alert and oriented x3. HEENT: Normocephalic and normochromic. Extraocular muscles intact. Throat is clear. NECK: Supple. No lymphadenopathy. LUNGS: Clear to auscultation bilaterally. CARDIOVASCULAR: Regular rate and rhythm. No murmur. No gallop. GASTROINTESTINAL: Abdomen is soft, nontender, and nondistended. Positive bowel sounds. No guarding and no rebound. Suprapubic catheter discharge at the catheter site. GENITOURINARY: No CVA tenderness. NEUROLOGIC: Alert and oriented x3, responsive, in no acute distress. No sensory or motor deficits. SKIN: No rash. LABORATORY AND DIAGNOSTIC DATA: Include WBC 6.3, hemoglobin 10, hematocrit 31.8, platelet count 170,000, neutrophils 68, and lymphocytes 22. Sodium 139, potassium 4.5, chloride 104, bicarb 27, BUN 34, creatinine 1.8, and glucose 186. AST 15, ALT 12, and alkaline phosphatase 66. CK-MB 2.5. Troponin 0.007. Total protein 6.3. Albumin 3.5. UA showed slightly cloudy pale yellow, +3 protein, +5 occult blood, leukocyte esterase +3. Urine RBC 60 to 80, urine WBC 20 to 30, few epithelial cells, and moderate bacteria. Poor inspiration with mild perihilar basilar linear opacity, could represent atelectasis. IMPRESSION: 1. Urinary tract infection. 2. Questionable sepsis. 3. Possible atelectasis. 4. Hypertension. 5. Diabetes mellitus type 2. 6. Coronary artery disease. 7. Depression. 8. Dementia. PLAN: We will start the patient on IV antibiotic cefepime 1 g q.12 h. and follow up the urine cultures as inpatient. We will also start the patient on IV fluids for dehydration to improve the creatinine level. We are also repeating the chest x-ray as an inpatient to rule out any pneumonia underlying the atelectasis. The patient will be admitted for minimum of two-night stay for diagnosis of urinary tract infection for IV antibiotic treatment. Suad Loving M.D. DR: Rj JOB#: [id number] CC: EMILY
[2017-03-29 08:00] VITALS: BP 161/70
[2017-03-29] MEDS: Heparin 5000 units/ml inj SUBQ SCH ×2 (09:34→20:42)
[2017-03-29] MEDS: Cefepime HCl 500 MG in D5W 55 ML IV SCH (09:35)
[2017-03-29] MEDS: Aspirin Baby 81mg ORAL SCH (09:35)
[2017-03-29] MEDS ORDERED: LORazepam Inj 2mg/ml 1ml IV ONE (10:45)
[2017-03-29 11:59] VITALS: BP 139/75
[2017-03-29] MEDS ORDERED: NS 500ML ONE (14:53)
--- NOTE | 2017-03-29 15:54 | Diagnostic Imaging Report ---
Indication: COUGH Technique: One view of the chest Comparison: 03/27/2017 Findings: Inspiration is suboptimal. Lungs and pleural spaces are clear. Aorta is tortuous and calcified. There are degenerative changes of both shoulders. No significant interim change Impression: No acute process
[2017-03-29 16:00] VITALS: BP 114/68
--- NOTE | 2017-03-29 17:50 | General Progress Note ---
Assessment/Plan Status: stable Assessment/Plan 1. UTII with suprapubic cath - cont cefepime 1 gm q 12 hrs for now and follow up urine cx. will have ID eval today. 2. Atelectasis - repeat CXR normal. 3. HTN - cont home meds. 4. DM II - on SSI. 5. Depression - cont home med. Subjective Date patient seen: Mar 29, 2017 Time patient seen: 17:40 Constitutional: Reports: no symptoms HEENT: Reports: no symptoms Cardiovascular: Reports: no symptoms Respiratory: Reports: no symptoms Gastrointestinal/Abdominal: Reports: no symptoms Genitourinary: Reports: burning Neurologic/Psychiatric: Reports: no symptoms Endocrine: Reports: no symptoms Hematologic/Lymphatic: Reports: no symptoms Allergies: Coded Allergies: No Known Allergies (Unverified , 11/26/14) Subjective Today he is more confused and he c/o dysuria as well. no fever or chills. no nausea or vomiting. no sob or chest pain. Objective Last 24 Hour Vital Signs Date Time Temp Pulse Resp B/P (MAP) Pulse Ox O2 Delivery O2 Flow Rate FiO2 03/29/17 16:00 97.7 64 19 114/68 97 03/29/17 12:00 95 Room Air 03/29/17 11:59 97.9 70 18 139/75 95 03/29/17 10:08 96 Room Air 03/29/17 09:35 161/70 03/29/17 09:35 58 161/70 03/29/17 08:00 98.4 58 18 161/70 96 03/29/17 04:00 98.8 54 21 136/65 96 Room Air 03/29/17 00:05 97.7 60 18 141/65 95 Room Air 03/28/17 20:13 98.1 57 18 146/72 95 Room Air Laboratory Tests 03/29/17 04:55: White Blood Count 8.6, Red Blood Count 4.37L, Hemoglobin 10.3L, Hematocrit 32.1L , Mean Corpuscular Volume 73L, Mean Corpuscular Hemoglobin 23.5L, Mean Corpuscular Hemoglobin Concent 32.1, Red Cell Distribution Width 12.9, Platelet Count 176, Mean Platelet Volume 6.6, Neutrophils (%) (Auto) 64.0, Lymphocytes (% ) (Auto) 29.0, Monocytes (%) (Auto) 6.3, Eosinophils (%) (Auto) 0.3, Basophils ( %) (Auto) 0.4, Sodium Level 142, Potassium Level 4.0, Chloride Level 108H, Carbon Dioxide Level 24, Anion Gap 10, Blood Urea Nitrogen 33H, Creatinine 1.5H , Estimat Glomerular Filtration Rate , Glucose Level 105, Calcium Level 8.6 Height (Feet): 5 Height (Inches): 6.00 Weight (Pounds): 143 General Appearance: no apparent distress, confused EENT: normal ENT inspection Neck: non-tender, normal alignment, supple Cardiovascular: normal peripheral pulses, normal rate, regular rhythm Respiratory/Chest: chest wall non-tender, lungs clear, normal breath sounds, no respiratory distress Abdomen: normal bowel sounds, non tender, soft, no organomegaly Extremities: normal range of motion, non-tender Edema: no edema noted Arm (L), no edema noted Arm (R), no edema noted Leg (L), no edema noted Leg (R), no edema noted Pedal (L), no edema noted Pedal (R), no edema noted Generalized Neurologic: no motor/sensory deficits, alert, responsive Skin: warm/dry Lymphatic: normal anterior cervical (L), normal anterior cervical (R), normal posterior cervical (L), normal posterior cervical (R), normal submandibular (L) , normal submandibular (R), normal supraclavicular (L), normal supraclavicular ( R), normal axillary (L), normal axillary (R), normal inguinal (L), normal inguinal (R), normal other ISIDRO YOON Mar 29, 2017 17:50
--- NOTE | 2017-03-29 17:59 | Infectious Diseases Prog Note ---
Assessment/Plan Problems: (1) Catheter-associated urinary tract infection Assessment & Plan: with drainage around the catheter site , not improving with cefepime with more confusion as side effect , will switch to ertapenem pending urine culture result , may need to change the suprapubic catheter (2) Sepsis Assessment & Plan: due to the above, will switch to ertapenem pending blood culture results (3) ARF (acute renal failure) Assessment & Plan: suspect malfunctioning of the suprapubic catheter , will order Renal US , and continue IVF for hydration (4) Abdominal pain Assessment & Plan: due to the above, continue pain meds , check X ray (5) Confusional state Assessment & Plan: suspect due to cefepime, will switch to ertapenem Subjective Allergies: Coded Allergies: No Known Allergies (Unverified , 11/26/14) Objective Vital Signs Last 24 Hour Vital Signs Date Time Temp Pulse Resp B/P (MAP) Pulse Ox O2 Delivery O2 Flow Rate FiO2 03/29/17 16:00 97.7 64 19 114/68 97 03/29/17 12:00 95 Room Air 03/29/17 11:59 97.9 70 18 139/75 95 03/29/17 10:08 96 Room Air 03/29/17 09:35 161/70 03/29/17 09:35 58 161/70 03/29/17 08:00 98.4 58 18 161/70 96 03/29/17 04:00 98.8 54 21 136/65 96 Room Air 03/29/17 00:05 97.7 60 18 141/65 95 Room Air 03/28/17 20:13 98.1 57 18 146/72 95 Room Air Height (Feet): 5 Height (Inches): 6.00 Weight (Pounds): 143 Microbiology Date/Time Source Procedure Growth Status 03/27/17 19:15 Blood Blood Culture - Preliminary NO GROWTH AFTER 24 HOURS Resulted 03/27/17 19:00 Blood Blood Culture - Preliminary NO GROWTH AFTER 24 HOURS Resulted 03/27/17 18:50 Urine,Clean Catch Urine Culture - Preliminary Resulted Laboratory Tests Test 03/29/17 04:55 White Blood Count 8.6 K/UL (4.8-10.8) Red Blood Count 4.37 M/UL (4.70-6.10) L Hemoglobin 10.3 G/DL (14.2-18.0) L Hematocrit 32.1 % (42.0-52.0) L Mean Corpuscular Volume 73 FL (80-99) L Mean Corpuscular Hemoglobin 23.5 PG (27.0-31.0) L Mean Corpuscular Hemoglobin Concent 32.1 G/DL (32.0-36.0) Red Cell Distribution Width 12.9 % (11.6-14.8) Platelet Count 176 K/UL (150-450) Mean Platelet Volume 6.6 FL (6.5-10.1) Neutrophils (%) (Auto) 64.0 % (45.0-75.0) Lymphocytes (%) (Auto) 29.0 % (20.0-45.0) Monocytes (%) (Auto) 6.3 % (1.0-10.0) Eosinophils (%) (Auto) 0.3 % (0.0-3.0) Basophils (%) (Auto) 0.4 % (0.0-2.0) Sodium Level 142 MMOL/L (136-145) Potassium Level 4.0 MMOL/L (3.5-5.1) Chloride Level 108 MMOL/L (98-107) H Carbon Dioxide Level 24 MMOL/L (21-32) Anion Gap 10 mmol/L (5-15) Blood Urea Nitrogen 33 mg/dL (7-18) H Creatinine 1.5 MG/DL (0.55-1.30) H Estimat Glomerular Filtration Rate mL/min (>60) Glucose Level 105 MG/DL (74-106) Calcium Level 8.6 MG/DL (8.5-10.1) Current Medications Medications (Trade) Dose Ordered Sig/Charlene Route PRN Reason Start Time Stop Time Status Last Admin Dose Admin Acetaminophen (Tylenol) 325 mg Q6H PRN ORAL Mild Pain/Temp > 100.5 03/28/17 00:30 04/27/17 00:29 Amlodipine Besylate (Norvasc) 5 mg DAILY ORAL 03/28/17 09:00 04/27/17 08:59 03/29/17 09:35 Aspirin (ASA) 81 mg DAILY ORAL 03/28/17 09:00 04/27/17 08:59 03/29/17 09:35 Cefepime HCl 1 gm/ Dextrose 55 ml @ 110 mls/hr Q24H IVPB 03/30/17 09:00 04/04/17 08:59 Clopidogrel Bisulfate (Plavix) 75 mg DAILY ORAL 03/28/17 09:00 04/27/17 08:59 03/29/17 09:34 Dextrose (Dextrose 50%) STAT PRN IV Hypoglycemia 03/28/17 00:30 04/27/17 00:29 Enalapril Maleate (Vasotec) 20 mg DAILY ORAL 03/28/17 09:00 04/27/17 08:59 03/29/17 09:35 Heparin Sodium (Porcine) (Heparin 5000 units/ml) 5,000 units EVERY 12 HOURS SUBQ 03/28/17 21:00 04/27/17 20:59 03/29/17 09:34 Insulin Aspart (NovoLOG) BEFORE MEALS AND HS SUBQ 03/28/17 06:30 04/27/17 06:29 03/29/17 16:28 Polyethylene Glycol (Miralax) 17 gm DAILY PRN ORAL Constipation 03/27/17 23:00 04/26/17 22:59 Frida Billings M.D. Mar 29, 2017 17:59
[2017-03-29 20:00] VITALS: BP 150/72
[2017-03-29] MEDS ORDERED: Ertapenem 1 GM in NS 55 ML IVPB SCH (20:00)
--- NOTE | 2017-03-29 23:38 | Consultation ---
History of Present Illness General Chief Complaint: General Complaint Present Illness HPI 86-year-old [place] male who came into the emergency room from assisted living due to complaint of lower abdominal pain and slight confusion per nursing staff at the assisted living. the pt was delusional during the eval and was unable to provide any hx Allergies: Coded Allergies: No Known Allergies (Unverified , 11/26/14) Medication History Scheduled Amlodipine Besylate (Norvasc), 5 MG ORAL DAILY, (Reported) Amlodipine Besylate (Norvasc), 5 MG ORAL DAILY, (Reported) Aspirin Ec* (Aspirin Ec*), 81 MG ORAL DAILY Aspirin* (Aspirin*), 81 MG ORAL DAILY, (Reported) Cephalexin* (Keflex*), 500 MG ORAL EVERY 6 HOURS Citalopram Hydrobromide* (Celexa*), 40 MG ORAL HS, (Reported) Clopidogrel Bisulfate* (Plavix*), 75 MG ORAL DAILY, (Reported) Enalapril Maleate* (Enalapril Maleate*), 20 MG ORAL EVERY 12 HOURS Enalapril Maleate* (Enalapril Maleate*), 20 MG ORAL DAILY, (Reported) Ergocalciferol (Vitamin D2)* (Vitamin D*), 50,000 UNIT ORAL ONCE A WEEK, ( Reported) Metformin Hcl* (Metformin Hcl*), 500 MG ORAL BID, (Reported) Polyethylene Glycol* (Miralax*), 17 GM ORAL DAILY, (Reported) Scheduled PRN Acetaminophen (Tylenol), 325 MG ORAL Q6H PRN for Mild Pain/Temp > 100.5, ( Reported) Miscellaneous Medications [vitamin D2], (Reported) Patient History History Provided By: Patient, Medical Record, PMD Healthcare decision maker Jennifer Arnold Resuscitation status Full Code Advanced Directive on File Review of Systems Psychiatric: Reports: prior hx, emotional problems, hallucinations Physical Exam General Appearance: no apparent distress, alert, confused Last 24 Hour Vital Signs Date Time Temp Pulse Resp B/P (MAP) Pulse Ox O2 Delivery O2 Flow Rate FiO2 03/29/17 20:00 99.2 88 22 150/72 98 Room Air 03/29/17 16:00 97.7 64 19 114/68 97 03/29/17 12:00 95 Room Air 03/29/17 11:59 97.9 70 18 139/75 95 03/29/17 10:08 96 Room Air 03/29/17 09:35 161/70 03/29/17 09:35 58 161/70 03/29/17 08:00 98.4 58 18 161/70 96 03/29/17 04:00 98.8 54 21 136/65 96 Room Air 03/29/17 00:05 97.7 60 18 141/65 95 Room Air Intake and Output 03/29/17 03/30/17 19:00 07:00 Intake Total 480 ml Output Total 1400 ml Balance -920 ml Intake Oral 480 ml Output Urine Total 1400 ml Laboratory Tests Test 03/29/17 04:55 White Blood Count 8.6 K/UL (4.8-10.8) Red Blood Count 4.37 M/UL (4.70-6.10) L Hemoglobin 10.3 G/DL (14.2-18.0) L Hematocrit 32.1 % (42.0-52.0) L Mean Corpuscular Volume 73 FL (80-99) L Mean Corpuscular Hemoglobin 23.5 PG (27.0-31.0) L Mean Corpuscular Hemoglobin Concent 32.1 G/DL (32.0-36.0) Red Cell Distribution Width 12.9 % (11.6-14.8) Platelet Count 176 K/UL (150-450) Mean Platelet Volume 6.6 FL (6.5-10.1) Neutrophils (%) (Auto) 64.0 % (45.0-75.0) Lymphocytes (%) (Auto) 29.0 % (20.0-45.0) Monocytes (%) (Auto) 6.3 % (1.0-10.0) Eosinophils (%) (Auto) 0.3 % (0.0-3.0) Basophils (%) (Auto) 0.4 % (0.0-2.0) Sodium Level 142 MMOL/L (136-145) Potassium Level 4.0 MMOL/L (3.5-5.1) Chloride Level 108 MMOL/L (98-107) H Carbon Dioxide Level 24 MMOL/L (21-32) Anion Gap 10 mmol/L (5-15) Blood Urea Nitrogen 33 mg/dL (7-18) H Creatinine 1.5 MG/DL (0.55-1.30) H Estimat Glomerular Filtration Rate mL/min (>60) Glucose Level 105 MG/DL (74-106) Calcium Level 8.6 MG/DL (8.5-10.1) Height (Feet): 5 Height (Inches): 6.00 Weight (Pounds): 143 Medications Current Medications Medications (Trade) Dose Ordered Sig/Charlene Route PRN Reason Start Time Stop Time Status Last Admin Dose Admin Acetaminophen (Tylenol) 325 mg Q6H PRN ORAL Mild Pain/Temp > 100.5 03/28/17 00:30 04/27/17 00:29 Amlodipine Besylate (Norvasc) 5 mg DAILY ORAL 03/28/17 09:00 04/27/17 08:59 03/29/17 09:35 Aspirin (ASA) 81 mg DAILY ORAL 03/28/17 09:00 04/27/17 08:59 03/29/17 09:35 Clopidogrel Bisulfate (Plavix) 75 mg DAILY ORAL 03/28/17 09:00 04/27/17 08:59 03/29/17 09:34 Dextrose (Dextrose 50%) STAT PRN IV Hypoglycemia 03/28/17 00:30 04/27/17 00:29 Enalapril Maleate (Vasotec) 20 mg DAILY ORAL 03/28/17 09:00 04/27/17 08:59 03/29/17 09:35 Ertapenem 1 gm/ Sodium Chloride 55 ml @ 110 mls/hr Q24H IVPB 03/29/17 20:00 04/03/17 19:59 03/29/17 20:41 Heparin Sodium (Porcine) (Heparin 5000 units/ml) 5,000 units EVERY 12 HOURS SUBQ 03/28/17 21:00 04/27/17 20:59 03/29/17 20:42 Insulin Aspart (NovoLOG) BEFORE MEALS AND HS SUBQ 03/28/17 06:30 04/27/17 06:29 03/29/17 20:43 Polyethylene Glycol (Miralax) 17 gm DAILY PRN ORAL Constipation 03/27/17 23:00 04/26/17 22:59 Assessment/Plan Status: stable Assessment/Plan psychotic d/o delirium Zyprexa 5mg qhs Sabra Bruner M.D. Mar 29, 2017 23:38
[2017-03-30] VITALS: BP 125/69
[2017-03-30 04:00] VITALS: BP 152/80
[2017-03-30] MEDS: NovoLOG Insulin Flexpen SUBQ SCH ×4 (06:26→20:44)
[2017-03-30 06:45] LABS: BASOPHILS % (AUTO) 1.1 % (0.0-2.0); EOSINOPHILS % (AUTO) 1.7 % (0.0-3.0); LYMPHOCYTES % (AUTO) 34.5 % (20.0-45.0); MEAN CORPUSCULAR HGB CONC 30.9 G/DL (32.0-36.0); MEAN CORPUSCULAR VOLUME 75 FL (80-99); MEAN PLATELET VOLUME 6.6 FL (6.5-10.1); MONOCYTES % (AUTO) 5.9 % (1.0-10.0); NEUTROPHILS % (AUTO) 56.7 % (45.0-75.0); PLATELET COUNT 166 K/UL (150-450); RED BLOOD COUNT 4.65 M/UL (4.70-6.10); RED CELL DISTRIBUTION WIDTH 13.2 % (11.6-14.8)
[2017-03-30 07:26] LABS: ANION GAP 9 mmol/L (5-15); CARBON DIOXIDE 28 MMOL/L (21-32); CHLORIDE 108 MMOL/L (98-107); CREATININE 1.5 MG/DL (0.55-1.30); POTASSIUM 5.3 MMOL/L (3.5-5.1); SODIUM 145 MMOL/L (136-145)
[2017-03-30 08:00] VITALS: BP_SYST 145; BP_SYST 156; BP_DIAS 67; BP_DIAS 72
--- NOTE | 2017-03-30 08:22 | General Progress Note ---
Assessment/Plan Status: stable Assessment/Plan 1. UTI with suprapubic cath - cont IV abx per ID. and follow up urine cx. 2. Abd pain - resolved. 3. HTN - cont home meds. 4. DM II - on SSI. 5. 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 will monitor for now. Subjective Date patient seen: Mar 30, 2017 Time patient seen: 08:10 Constitutional: Reports: no symptoms HEENT: Reports: no symptoms Cardiovascular: Reports: no symptoms Respiratory: Reports: no symptoms Gastrointestinal/Abdominal: Reports: no symptoms Genitourinary: Reports: no symptoms Neurologic/Psychiatric: Reports: no symptoms Endocrine: Reports: no symptoms Hematologic/Lymphatic: Reports: no symptoms Allergies: Coded Allergies: No Known Allergies (Unverified , 11/26/14) Subjective Today he is better and sleeping in bed. no fever or chills. no nausea or vomiting. no sob or chest pain. Objective Last 24 Hour Vital Signs Date Time Temp Pulse Resp B/P (MAP) Pulse Ox O2 Delivery O2 Flow Rate FiO2 03/30/17 04:00 97.3 56 18 152/80 97 Room Air 03/30/17 00:00 97.9 75 19 125/69 95 03/29/17 20:00 99.2 88 22 150/72 98 Room Air 03/29/17 16:00 97.7 64 19 114/68 97 03/29/17 12:00 95 Room Air 03/29/17 11:59 97.9 70 18 139/75 95 03/29/17 10:08 96 Room Air 03/29/17 09:35 161/70 03/29/17 09:35 58 161/70 Laboratory Tests 03/30/17 05:05: White Blood Count 7.0, Red Blood Count 4.65L, Hemoglobin 10.7L, Hematocrit 34.7L , Mean Corpuscular Volume 75L, Mean Corpuscular Hemoglobin 23.0L, Mean Corpuscular Hemoglobin Concent 30.9L, Red Cell Distribution Width 13.2, Platelet Count 166, Mean Platelet Volume 6.6, Neutrophils (%) (Auto) 56.7, Lymphocytes (%) (Auto) 34.5, Monocytes (%) (Auto) 5.9, Eosinophils (%) (Auto) 1.7, Basophils (%) (Auto) 1.1, Sodium Level 145, Potassium Level 5.3H, Chloride Level 108H, Carbon Dioxide Level 28, Anion Gap 9, Blood Urea Nitrogen 30H, Creatinine 1.5H, Estimat Glomerular Filtration Rate , Glucose Level 89, Calcium Level 9.0 Height (Feet): 5 Height (Inches): 6.00 Weight (Pounds): 143 General Appearance: no apparent distress EENT: normal ENT inspection Neck: non-tender, normal alignment, supple Cardiovascular: normal peripheral pulses, normal rate, regular rhythm Respiratory/Chest: chest wall non-tender, lungs clear, normal breath sounds Abdomen: normal bowel sounds, non tender, soft Extremities: normal range of motion, non-tender Edema: no edema noted Arm (L), no edema noted Arm (R), no edema noted Leg (L), no edema noted Leg (R), no edema noted Pedal (L), no edema noted Pedal (R), no edema noted Generalized Neurologic: no motor/sensory deficits, responsive Skin: warm/dry Lymphatic: normal anterior cervical (L), normal anterior cervical (R), normal posterior cervical (L), normal posterior cervical (R), normal submandibular (L) , normal submandibular (R), normal supraclavicular (L), normal supraclavicular ( R), normal axillary (L), normal axillary (R), normal inguinal (L), normal inguinal (R), normal other ISIDRO YOON Mar 30, 2017 08:22
[2017-03-30] MEDS: Heparin 5000 units/ml inj SUBQ SCH ×2 (08:53→20:43)
[2017-03-30] MEDS: Aspirin Baby 81mg ORAL SCH (08:55)
[2017-03-30] MEDS ORDERED: Cefepime HCl 1 GM in D5W 55 ML IVPB SCH (09:00)
[2017-03-30] MEDS ORDERED: Sodium Polystyrene Sulfonate 15gm Powder ORAL ONE (09:00)
--- NOTE | 2017-03-30 10:24 | Diagnostic Imaging Report ---
Indication: Abnormal renal function tests Technique: Grayscale and duplex images of the kidneys, retroperitoneum, and bladder were obtained. Comparison:02/08/2016 Findings: Right kidney measures 10.9 cm in length. Left kidney measures 10.5 cm in length. Both kidneys demonstrate borderline increased echogenicity. There is bilateral cortical thinning and prominent sinus fat, also previously reported. No hydronephrosis. Previously reported echogenic focus the right kidney is not demonstrated currently. Normal inferior vena cava. Bladder is empty, contains a Patricio catheter. No calcifications are seen within the bladder lumen. No abnormal fluid collections within or about the bladder wall are demonstrated. Impression: Borderline increased renal echogenicity and portable thinning, consistent with senescent changes and medical renal disease Negative for hydronephrosis No gross bladder abnormality. Note that the bladder is empty and contains a Patricio catheter.
--- NOTE | 2017-03-30 11:13 | Diagnostic Imaging Report ---
Indication: Total pain Technique: Supine view of the abdomen Comparison: No comparison plain radiograph. Comparison is is made to [employer] image from abdomen pelvis CT of 12/13/2015 Findings: Bowel gas pattern is unremarkable. No unusual masses or calcifications. There is decreased retained feces as compared to the previous exam Impression: No acute process
[2017-03-30 12:00] VITALS: BP 152/73
--- NOTE | 2017-03-30 14:15 | Infectious Diseases Prog Note ---
Assessment/Plan Problems: (1) Catheter-associated urinary tract infection Assessment & Plan: due to streptococcus spp, will switch to ceftriaxon for 10 days total (2) Sepsis Assessment & Plan: due to the above, on ertapenem pending blood culture results (3) ARF (acute renal failure) Assessment & Plan: no evidence of malfunctioning of the suprapubic catheter , Renal US is ok with no obstruction , continue IVF for hydration (4) Abdominal pain Assessment & Plan: due to the above, continue pain meds , X ray is ok no obstruction Subjective Constitutional: Reports: no symptoms HEENT: Reports: no symptoms Respiratory: Reports: no symptoms Breasts: Reports: no symptoms Cardiovascular: Reports: no symptoms Gastrointestinal/Abdominal: Reports: no symptoms Genitourinary: Reports: no symptoms Neurologic: Reports: no symptoms Psychiatric: Reports: no symptoms Skin: Reports: no symptoms Endocrine: Reports: no symptoms Hematologic: Reports: no symptoms Musculoskeletal: Reports: no symptoms Allergies: Coded Allergies: No Known Allergies (Unverified , 11/26/14) Objective Vital Signs Last 24 Hour Vital Signs Date Time Temp Pulse Resp B/P (MAP) Pulse Ox O2 Delivery O2 Flow Rate FiO2 03/30/17 08:55 156/67 03/30/17 08:50 64 156/67 03/30/17 08:00 97.6 64 17 156/67 97 Room Air 03/30/17 08:00 98.7 56 17 145/72 95 Room Air 03/30/17 04:00 97.3 56 18 152/80 97 Room Air 03/30/17 00:00 97.9 75 19 125/69 95 03/29/17 20:00 99.2 88 22 150/72 98 Room Air 03/29/17 16:00 97.7 64 19 114/68 97 Height (Feet): 5 Height (Inches): 6.00 Weight (Pounds): 143 General Appearance: WD/WN, no acute distress HEENT: normocephalic, atraumatic, anicteric, mucous membranes moist, EOMI, pharynx normal, supple, no JVD Respiratory/Chest: chest wall non-tender, lungs clear, normal breath sounds, no respiratory distress, no accessory muscle use Cardiovascular: normal peripheral pulses, normal rate, regular rhythm, no gallop/murmur, no JVD Abdomen: normal bowel sounds, soft, non tender, no organomegaly, non distended , no mass Extremities: no cyanosis, no clubbing Skin: no rash, no lesions, no ulcers, other - red , erythematous around the catheter site Neurologic/Psychiatric: alert, responsive Lymphatic: no neck adenopathy, no groin adenopathy Microbiology Date/Time Source Procedure Growth Status 03/27/17 19:15 Blood Blood Culture - Preliminary NO GROWTH AFTER 48 HOURS Resulted 03/27/17 19:00 Blood Blood Culture - Preliminary NO GROWTH AFTER 48 HOURS Resulted 03/27/17 23:30 Nasal Nares MRSA Culture - Final NO METHICILLIN RESISTANT STAPH AUREUS... Complete 03/27/17 18:50 Urine,Clean Catch Urine Culture - Preliminary Streptococcus Species Resulted 03/27/17 23:30 Rectum VRE Culture - Final NO VANCOMYCIN RESISTANT ENTEROCOCCUS ... Complete Laboratory Tests Test 03/30/17 05:05 White Blood Count 7.0 K/UL (4.8-10.8) Red Blood Count 4.65 M/UL (4.70-6.10) L Hemoglobin 10.7 G/DL (14.2-18.0) L Hematocrit 34.7 % (42.0-52.0) L Mean Corpuscular Volume 75 FL (80-99) L Mean Corpuscular Hemoglobin 23.0 PG (27.0-31.0) L Mean Corpuscular Hemoglobin Concent 30.9 G/DL (32.0-36.0) L Red Cell Distribution Width 13.2 % (11.6-14.8) Platelet Count 166 K/UL (150-450) Mean Platelet Volume 6.6 FL (6.5-10.1) Neutrophils (%) (Auto) 56.7 % (45.0-75.0) Lymphocytes (%) (Auto) 34.5 % (20.0-45.0) Monocytes (%) (Auto) 5.9 % (1.0-10.0) Eosinophils (%) (Auto) 1.7 % (0.0-3.0) Basophils (%) (Auto) 1.1 % (0.0-2.0) Sodium Level 145 MMOL/L (136-145) Potassium Level 5.3 MMOL/L (3.5-5.1) H Chloride Level 108 MMOL/L (98-107) H Carbon Dioxide Level 28 MMOL/L (21-32) Anion Gap 9 mmol/L (5-15) Blood Urea Nitrogen 30 mg/dL (7-18) H Creatinine 1.5 MG/DL (0.55-1.30) H Estimat Glomerular Filtration Rate mL/min (>60) Glucose Level 89 MG/DL (74-106) Calcium Level 9.0 MG/DL (8.5-10.1) Current Medications Medications (Trade) Dose Ordered Sig/Charlene Route PRN Reason Start Time Stop Time Status Last Admin Dose Admin Acetaminophen (Tylenol) 325 mg Q6H PRN ORAL Mild Pain/Temp > 100.5 03/28/17 00:30 04/27/17 00:29 Amlodipine Besylate (Norvasc) 5 mg DAILY ORAL 03/28/17 09:00 04/27/17 08:59 03/30/17 08:50 Aspirin (ASA) 81 mg DAILY ORAL 03/28/17 09:00 04/27/17 08:59 03/30/17 08:55 Clopidogrel Bisulfate (Plavix) 75 mg DAILY ORAL 03/28/17 09:00 04/27/17 08:59 03/30/17 08:48 Dextrose (Dextrose 50%) STAT PRN IV Hypoglycemia 03/28/17 00:30 04/27/17 00:29 Enalapril Maleate (Vasotec) 20 mg DAILY ORAL 03/28/17 09:00 04/27/17 08:59 03/30/17 08:55 Ertapenem 1 gm/ Sodium Chloride 55 ml @ 110 mls/hr Q24H IVPB 03/29/17 20:00 04/03/17 19:59 03/29/17 20:41 Heparin Sodium (Porcine) (Heparin 5000 units/ml) 5,000 units EVERY 12 HOURS SUBQ 03/28/17 21:00 04/27/17 20:59 03/30/17 08:53 Insulin Aspart (NovoLOG) BEFORE MEALS AND HS SUBQ 03/28/17 06:30 04/27/17 06:29 03/30/17 11:51 Olanzapine (ZyPREXA) 5 mg BEDTIME ORAL 03/30/17 21:00 04/29/17 20:59 Polyethylene Glycol (Miralax) 17 gm DAILY PRN ORAL Constipation 03/27/17 23:00 04/26/17 22:59 Frida Billings M.D. Mar 30, 2017 14:15
[2017-03-30 16:00] VITALS: BP 145/76
[2017-03-30] MEDS ORDERED: cefTRIAXone 1 GM in D5W 55 ML IVPB SCH (16:00)
--- NOTE | 2017-03-30 16:30 | Consultation ---
DATE OF CONSULTATION: 03/30/2017 INFECTIOUS DISEASE CONSULTATION CONSULTING PHYSICIAN: Frida Billings M.D. ATTENDING PHYSICIAN: Suad Loving M.D. REQUESTING PHYSICIAN: Suad Loving M.D. REASON FOR CONSULTATION: Catheter-associated urinary tract infection and possible catheter site cellulitis with infection, recommendation for antibiotic therapy. HISTORY OF PRESENT ILLNESS: The patient is an 86-year-old male with past medical history of coronary artery disease, hypertension, diabetes, possible dementia, who was brought in to [facility] Emergency Room for pain in his lower abdomen. It was noticed by the paramedics that the pain was mainly localized at the suprapubic catheter site. There was some drainage around the site. The patient had no fever or chills at the facility, no nausea or vomiting, or diarrhea and no hematuria either. In the emergency room, the patient had urinalysis which showed evidence of infection, so he was started on cefepime by the admitting physician and admitted to the hospital for further evaluation and management. The patient became more agitated and confused on the next day of hospitalization while he was on IV cefepime and his chest x-ray did not show evidence of pneumonia, so I was consulted by the primary provider for antibiotic choice and further management of his catheter-associated urinary tract infection. As of note, the patient is agitated, confused, poor historian, and cannot provide any history. History was mainly obtained from the medical record. REVIEW OF SYSTEMS: Unable to obtain. The patient is agitated and confused, and cannot provide any history. PAST MEDICAL HISTORY: Significant for diabetes, hypertension, and coronary artery disease. PAST SURGICAL HISTORY: He had suprapubic catheter placement. SOCIAL HISTORY: The patient lives at the long term. No recent drugs, tobacco, or alcohol. FAMILY HISTORY: Unable to obtain at this point. ALLERGIES: He has no known drug allergy. MEDICATIONS: The patient was on cefepime 1 g IV q.24 hours. For the rest of his medications, please refer to MAR. LABORATORY DATA: Labs showed white count of 8.6, hemoglobin of 10.3, and platelet count of 176,000. BUN of 30, creatinine of 1.5. Urinalysis showed +3 leukocyte esterase, WBC 20-30, and moderate amount of bacteria. Microbiology, blood culture x2 was negative for 48 hours. Urine culture was pending. Imaging, chest x-ray on admission showed poor inspiration with mild perihilar and basilar linear opacity, could represent atelectasis. Repeated chest x-ray on 03/29/2017, showed no acute process. PHYSICAL EXAMINATION: VITAL SIGNS: Temperature 97.7, pulse 64, respiration 19, blood pressure 114/68, and saturation 97% on room air. GENERAL: An elderly male, lying in bed, agitated, confused, and combative at the time of my exam. HEENT: Normocephalic, atraumatic. Pupils reactive to light. Moist oral mucosa. No exudate. NECK: Supple. No lymphadenopathy. CARDIOVASCULAR: Regular rate and rhythm. No murmur or gallop. LUNGS: Clear bilaterally. Diminished breathing sounds at the bases. No wheezing or rhonchi. ABDOMEN: Soft, nontender, and nondistended. Unable to assess suprapubic catheter site. The patient was combative and refused to be examined, but urine was clear with no hematuria in it. EXTREMITIES: No edema or cyanosis. SKIN: No rash or hives. He had some erythema and redness around the suprapubic catheter site as per the picture in the medical record. ASSESSMENT AND RECOMMENDATION: 1. Catheter-associated urinary tract infection with drainage around the catheter site and possible cellulitis, not improving with cefepime with more confusion most likely side effect from cefepime. We will switch him to ertapenem pending urine culture results. May need to change the suprapubic Patricio catheter if his redness, erythema, and drainage did not improve with antibiotic treatment. We will await urine culture results. 2. Sepsis due to the above. We will switch to ertapenem pending blood culture results. 3. Acute renal failure, possibly chronic in etiology, suspect urinary obstruction. We will order ultrasound of the kidneys. Continue IV fluid for hydration. 4. Abdominal pain, suspect due to catheter-associated urinary tract infection. Continue pain management as per the primary. We will order x-ray of the abdomen to rule out obstruction of the bowel. Thank you for the consult. Infectious disease will continue to follow. Frida Billinsg M.D. DR: Jamarcus JOB#: [id number] CC: EMILY
[2017-03-30 19:58] VITALS: BP 137/85
[2017-03-31] VITALS: BP 122/77
[2017-03-31 04:00] VITALS: BP 131/56
[2017-03-31] MEDS: NovoLOG Insulin Flexpen SUBQ SCH ×2 (06:30→11:45)
[2017-03-31 07:14] LABS: ANION GAP 7 mmol/L (5-15); CALCIUM 8.4 MG/DL (8.5-10.1); CARBON DIOXIDE 29 MMOL/L (21-32); CHLORIDE 106 MMOL/L (98-107); CREATININE 1.5 MG/DL (0.55-1.30); POTASSIUM 4.1 MMOL/L (3.5-5.1); SODIUM 142 MMOL/L (136-145)
[2017-03-31 07:18] LABS: BASOPHILS % (AUTO) 1.3 % (0.0-2.0); EOSINOPHILS % (AUTO) 5.4 % (0.0-3.0); LYMPHOCYTES % (AUTO) 19.2 % (20.0-45.0); MEAN CORPUSCULAR HEMOGLOBIN 23.1 PG (27.0-31.0); MEAN CORPUSCULAR HGB CONC 30.9 G/DL (32.0-36.0); MEAN CORPUSCULAR VOLUME 75 FL (80-99); MEAN PLATELET VOLUME 6.5 FL (6.5-10.1); NEUTROPHILS % (AUTO) 67.2 % (45.0-75.0); PLATELET COUNT 167 K/UL (150-450); RED BLOOD COUNT 4.63 M/UL (4.70-6.10); RED CELL DISTRIBUTION WIDTH 13.1 % (11.6-14.8); WHITE BLOOD COUNT 5.1 K/UL (4.8-10.8)
[2017-03-31] MEDS: Aspirin Baby 81mg ORAL SCH (08:26)
[2017-03-31] MEDS: Heparin 5000 units/ml inj SUBQ SCH (08:27)
[2017-03-31 08:29] VITALS: BP 117/61
--- NOTE | 2017-03-31 08:55 | General Progress Note ---
Assessment/Plan Status: stable Assessment/Plan 1. UTI with suprapubic cath - cont IV abx per ID. consider D/C today if OK with ID. 2. Abd pain - resolved. 3. HTN - cont home meds. 4. DM II - on SSI. 5. Depression - cont home med 7. 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 on zyprexa 5 mg per psych. 8. Dehydration - start IVF NS at 75 cc/hr. Subjective Date patient seen: Mar 31, 2017 Time patient seen: 08:35 Constitutional: Reports: no symptoms HEENT: Reports: no symptoms Cardiovascular: Reports: no symptoms Respiratory: Reports: no symptoms Gastrointestinal/Abdominal: Reports: no symptoms Genitourinary: Reports: no symptoms Neurologic/Psychiatric: Reports: no symptoms Endocrine: Reports: no symptoms Hematologic/Lymphatic: Reports: no symptoms Allergies: Coded Allergies: No Known Allergies (Unverified , 11/26/14) Subjective Today he is better and doing well. no fever or chills. no nausea or vomiting. no sob or chest pain. No abd pain. Objective Last 24 Hour Vital Signs Date Time Temp Pulse Resp B/P (MAP) Pulse Ox O2 Delivery O2 Flow Rate FiO2 03/31/17 08:29 97.9 65 18 117/61 93 Room Air 03/31/17 08:26 117/61 03/31/17 08:25 65 117/61 03/31/17 04:00 93 Room Air 03/31/17 04:00 97.5 50 17 131/56 93 03/31/17 00:00 97.3 57 18 122/77 96 03/31/17 00:00 96 Room Air 03/30/17 20:00 99 Room Air 03/30/17 19:58 98.1 87 18 137/85 99 03/30/17 16:00 97.9 59 17 145/76 98 Room Air 03/30/17 12:00 97.5 65 18 152/73 97 Room Air 03/30/17 08:55 156/67 Laboratory Tests 03/31/17 06:20: White Blood Count 5.1, Red Blood Count 4.63L, Hemoglobin 10.7L, Hematocrit 34.6L , Mean Corpuscular Volume 75L, Mean Corpuscular Hemoglobin 23.1L, Mean Corpuscular Hemoglobin Concent 30.9L, Red Cell Distribution Width 13.1, Platelet Count 167, Mean Platelet Volume 6.5, Neutrophils (%) (Auto) 67.2, Lymphocytes (%) (Auto) 19.2L, Monocytes (%) (Auto) 7.0, Eosinophils (%) (Auto) 5.4H, Basophils (%) (Auto) 1.3, Sodium Level 142, Potassium Level 4.1, Chloride Level 106, Carbon Dioxide Level 29, Anion Gap 7, Blood Urea Nitrogen 38H, Creatinine 1.5H, Estimat Glomerular Filtration Rate , Glucose Level 98, Calcium Level 8.4L Height (Feet): 5 Height (Inches): 6.00 Weight (Pounds): 143 General Appearance: no apparent distress, alert EENT: normal ENT inspection Neck: non-tender, normal alignment, supple Cardiovascular: normal peripheral pulses, normal rate, regular rhythm Respiratory/Chest: chest wall non-tender, lungs clear, normal breath sounds Abdomen: normal bowel sounds, non tender, soft Extremities: normal range of motion, non-tender Edema: no edema noted Arm (L), no edema noted Arm (R), no edema noted Leg (L), no edema noted Leg (R), no edema noted Pedal (L), no edema noted Pedal (R), no edema noted Generalized Neurologic: alert, oriented x 3, responsive Skin: warm/dry Lymphatic: normal anterior cervical (L), normal anterior cervical (R), normal posterior cervical (L), normal posterior cervical (R), normal submandibular (L) , normal submandibular (R), normal supraclavicular (L), normal supraclavicular ( R), normal axillary (L), normal axillary (R), normal inguinal (L), normal inguinal (R), normal other ISIDRO YOON Mar 31, 2017 08:55
[2017-03-31] MEDS ORDERED: ZYPREXA5 MG ORAL (11:18)
[2017-03-31] MEDS ORDERED: AMPICILLIN TRI500 MG ORAL (11:21)
[2017-03-31 12:00] VITALS: BP 134/59
--- NOTE | 2017-03-31 13:50 | Infectious Diseases Prog Note ---
Assessment/Plan Problems: (1) Catheter-associated urinary tract infection Assessment & Plan: with no more drainage around the catheter site , culture grew enterococcus faecalis sensitive to ampicillin, will switch ceftriaxone to ampicillin orally for 10 days (2) Sepsis Assessment & Plan: ruled out with negative blood culture . (3) ARF (acute renal failure) Assessment & Plan: no evidence of hydronephrosis or malfunctioning of the suprapubic catheter on Renal US , avoid nephrotoxic meds , follow up with PCP (4) Abdominal pain Assessment & Plan: resolved , due to the above, X ray was ok (5) Confusional state Assessment & Plan: resolved , suspect due to cefepime Subjective Constitutional: Reports: no symptoms HEENT: Reports: no symptoms Respiratory: Reports: no symptoms Breasts: Reports: no symptoms Cardiovascular: Reports: no symptoms Gastrointestinal/Abdominal: Reports: no symptoms Genitourinary: Reports: no symptoms Neurologic: Reports: no symptoms Psychiatric: Reports: no symptoms Skin: Reports: no symptoms Endocrine: Reports: no symptoms Hematologic: Reports: no symptoms Allergies: Coded Allergies: No Known Allergies (Unverified , 11/26/14) Objective Vital Signs Last 24 Hour Vital Signs Date Time Temp Pulse Resp B/P (MAP) Pulse Ox O2 Delivery O2 Flow Rate FiO2 03/31/17 12:00 97.3 54 17 134/59 96 Room Air 03/31/17 08:29 97.9 65 18 117/61 93 Room Air 03/31/17 08:26 117/61 03/31/17 08:25 65 117/61 03/31/17 04:00 93 Room Air 03/31/17 04:00 97.5 50 17 131/56 93 03/31/17 00:00 97.3 57 18 122/77 96 03/31/17 00:00 96 Room Air 03/30/17 20:00 99 Room Air 03/30/17 19:58 98.1 87 18 137/85 99 03/30/17 16:00 97.9 59 17 145/76 98 Room Air Height (Feet): 5 Height (Inches): 6.00 Weight (Pounds): 143 General Appearance: WD/WN, no acute distress HEENT: normocephalic, atraumatic, anicteric, EOMI, pharynx normal, supple, no JVD Respiratory/Chest: chest wall non-tender, lungs clear, normal breath sounds, no respiratory distress, no accessory muscle use Cardiovascular: normal peripheral pulses, normal rate, regular rhythm, no gallop/murmur, no JVD Abdomen: normal bowel sounds, soft, non tender, no organomegaly, non distended , no mass, no scars Extremities: no cyanosis, no clubbing Skin: no rash, no lesions, no ulcers Neurologic/Psychiatric: alert, responsive Lymphatic: no neck adenopathy, no groin adenopathy Laboratory Tests Test 03/31/17 06:20 White Blood Count 5.1 K/UL (4.8-10.8) Red Blood Count 4.63 M/UL (4.70-6.10) L Hemoglobin 10.7 G/DL (14.2-18.0) L Hematocrit 34.6 % (42.0-52.0) L Mean Corpuscular Volume 75 FL (80-99) L Mean Corpuscular Hemoglobin 23.1 PG (27.0-31.0) L Mean Corpuscular Hemoglobin Concent 30.9 G/DL (32.0-36.0) L Red Cell Distribution Width 13.1 % (11.6-14.8) Platelet Count 167 K/UL (150-450) Mean Platelet Volume 6.5 FL (6.5-10.1) Neutrophils (%) (Auto) 67.2 % (45.0-75.0) Lymphocytes (%) (Auto) 19.2 % (20.0-45.0) L Monocytes (%) (Auto) 7.0 % (1.0-10.0) Eosinophils (%) (Auto) 5.4 % (0.0-3.0) H Basophils (%) (Auto) 1.3 % (0.0-2.0) Sodium Level 142 MMOL/L (136-145) Potassium Level 4.1 MMOL/L (3.5-5.1) Chloride Level 106 MMOL/L (98-107) Carbon Dioxide Level 29 MMOL/L (21-32) Anion Gap 7 mmol/L (5-15) Blood Urea Nitrogen 38 mg/dL (7-18) H Creatinine 1.5 MG/DL (0.55-1.30) H Estimat Glomerular Filtration Rate mL/min (>60) Glucose Level 98 MG/DL (74-106) Calcium Level 8.4 MG/DL (8.5-10.1) L Current Medications Medications (Trade) Dose Ordered Sig/Charlene Route PRN Reason Start Time Stop Time Status Last Admin Dose Admin Acetaminophen (Tylenol) 325 mg Q6H PRN ORAL Mild Pain/Temp > 100.5 03/28/17 00:30 04/27/17 00:29 Amlodipine Besylate (Norvasc) 5 mg DAILY ORAL 03/28/17 09:00 04/27/17 08:59 03/31/17 08:25 Ampicillin (Ampicillin) 500 mg QID ORAL 03/31/17 13:00 04/07/17 12:59 03/31/17 13:25 Aspirin (ASA) 81 mg DAILY ORAL 03/28/17 09:00 04/27/17 08:59 03/31/17 08:26 Clopidogrel Bisulfate (Plavix) 75 mg DAILY ORAL 03/28/17 09:00 04/27/17 08:59 03/31/17 08:26 Dextrose (Dextrose 50%) STAT PRN IV Hypoglycemia 03/28/17 00:30 04/27/17 00:29 Enalapril Maleate (Vasotec) 20 mg DAILY ORAL 03/28/17 09:00 04/27/17 08:59 03/31/17 08:26 Heparin Sodium (Porcine) (Heparin 5000 units/ml) 5,000 units EVERY 12 HOURS SUBQ 03/28/17 21:00 04/27/17 20:59 03/31/17 08:27 Insulin Aspart (NovoLOG) BEFORE MEALS AND HS SUBQ 03/28/17 06:30 04/27/17 06:29 03/31/17 11:45 Olanzapine (ZyPREXA) 5 mg BEDTIME ORAL 03/30/17 21:00 04/29/17 20:59 03/30/17 20:39 Polyethylene Glycol (Miralax) 17 gm DAILY PRN ORAL Constipation 03/27/17 23:00 04/26/17 22:59 Sodium Chloride 1,000 ml @ 75 mls/hr [id number] IV 03/31/17 09:30 04/30/17 09:29 03/31/17 09:39 Frida Billings M.D. Mar 31, 2017 13:50
[2017-03-31] MEDS ORDERED: NS 500ML ONE (14:43)
--- NOTE | 2017-04-01 00:48 | General Progress Note ---
Assessment/Plan Status: stable Assessment/Plan psychotic d/o -cont current meds Subjective Date patient seen: Mar 31, 2017 Neurologic/Psychiatric: Reports: anxiety, depressed, emotional problems Allergies: Coded Allergies: No Known Allergies (Unverified , 11/26/14) Objective Last 24 Hour Vital Signs Date Time Temp Pulse Resp B/P (MAP) Pulse Ox O2 Delivery O2 Flow Rate FiO2 03/31/17 12:00 97.3 54 17 134/59 96 Room Air 03/31/17 08:29 97.9 65 18 117/61 93 Room Air 03/31/17 08:26 117/61 03/31/17 08:25 65 117/61 03/31/17 04:00 93 Room Air 03/31/17 04:00 97.5 50 17 131/56 93 Laboratory Tests 03/31/17 06:20: White Blood Count 5.1, Red Blood Count 4.63L, Hemoglobin 10.7L, Hematocrit 34.6L , Mean Corpuscular Volume 75L, Mean Corpuscular Hemoglobin 23.1L, Mean Corpuscular Hemoglobin Concent 30.9L, Red Cell Distribution Width 13.1, Platelet Count 167, Mean Platelet Volume 6.5, Neutrophils (%) (Auto) 67.2, Lymphocytes (%) (Auto) 19.2L, Monocytes (%) (Auto) 7.0, Eosinophils (%) (Auto) 5.4H, Basophils (%) (Auto) 1.3, Sodium Level 142, Potassium Level 4.1, Chloride Level 106, Carbon Dioxide Level 29, Anion Gap 7, Blood Urea Nitrogen 38H, Creatinine 1.5H, Estimat Glomerular Filtration Rate , Glucose Level 98, Calcium Level 8.4L Height (Feet): 5 Height (Inches): 6.00 Weight (Pounds): 143 General Appearance: WD/WN, no apparent distress, alert, confused Neurologic: alert, responsive, disoriented, depressed affect Sabra Bruner M.D. Apr 01, 2017 00:48
--- NOTE | 2017-04-04 22:30 | Discharge Summary ---
DATE OF ADMISSION: 03/27/2017 DATE OF DISCHARGE: 03/31/2017 HOSPITAL COURSE: This is an 86-year-old [place] male, who came in originally for complaint of lower abdominal pain and slight confusion few days prior to admission. The patient's laboratory workup in the ER consistent for urinary tract infection. He was started on intravenous antibiotic and azithromycin followed by cefepime. The patient responded. The patient had an allergic reaction to azithromycin and was treated for allergy in the ER. Cefepime was continued in the hospital, but the patient did not respond well to the treatment and Infectious Disease was consulted. The patient was switched to ertapenem by Infectious Disease and he responded well to the treatment. Urine culture grew Enterococcus fasciitis that was sensitive to ampicillin. The patient was discharged to assisted living with oral ampicillin for 10 days. The patient's blood culture came back as negative. While he was in the hospital, he also was seen by psych due to worsening confusion, which was possibly due to the sepsis and urinary tract infection. He was started on Zyprexa. He responded well to the treatment and we will continue the Zyprexa as outpatient and then we will decide if he can be started as outpatient. The patient had abdominal pain and confusion, all resolved prior to discharge. DISCHARGE DIAGNOSES: Include: 1. Catheter-associated urinary tract infection. 2. Enterococcus fasciitis. 3. Sepsis, resolved. 4. Acute renal failure, improved with hydration. 5. Abdominal pain, resolved. 6. Hypertension. 7. Diabetes mellitus type 2. 8. Psychosis that resolved. 9. Dehydration, improved. DISCHARGE MEDICATIONS: 1. Tylenol 325 mg q.6 hours as needed for fever and pain. 2. Amlodipine 5 mg daily. 3. Ampicillin 500 mg 4 times a day for 10 days. 4. Aspirin 81 mg daily. 5. Celexa 20 mg at bedtime. 6. Plavix 75 mg daily. 7. Enalapril 10 mg q.12 hours. 8. Vitamin D 50,000 units weekly. 9. Metformin 500 mg twice a day. 10. Zyprexa 5 mg at bedtime. 11. MiraLAX 17 g as needed daily. DISPOSITION: The patient will be discharged back to the [facility]. We will follow up the patient within one week. Suad Loving M.D. DR: MONICO JOB#: [id number] CC:
== END 2017-03-31 14:44 | DRG 698 ==
LOC: EDBD 18:27 → EMR 19:38 → EDBEDREQ 21:39 → 4E 21:53
DX: T83.511A Infection and inflammatory reaction due to indwelling urethral catheter, initial encounter (principal); A41.9 Sepsis, unspecified organism; N17.9 Acute kidney failure, unspecified; G30.9 Alzheimer's disease, unspecified; E11.9 Type 2 diabetes mellitus without complications; I10 Essential (primary) hypertension; F02.80 Dementia in other diseases classified elsewhere, unspecified severity, without behavioral disturbance, psychotic disturbance, mood disturbance, and anxiety; B95.2 Enterococcus as the cause of diseases classified elsewhere; J98.11 Atelectasis; F32.9 Major depressive disorder, single episode, unspecified; N39.0 Urinary tract infection, site not specified; E86.0 Dehydration; Y92.89 Other specified places as the place of occurrence of the external cause; Z79.4 Long term (current) use of insulin; I25.10 Atherosclerotic heart disease of native coronary artery without angina pectoris; Y84.6 Urinary catheterization as the cause of abnormal reaction of the patient, or of later complication, without mention of misadventure at the time of the procedure; T36.3X5A Adverse effect of macrolides, initial encounter; Y92.238 Other place in hospital as the place of occurrence of the external cause
CPT/HCPCS: 36415; 71010; 74000; 76775; 80048; 80053; 81003; 82550; 82553; 82962; 83605; 84484; 85025; 87040; 87081; 87086; 87181; 93005; 99285; J1815

== ENCOUNTER 2017-04-22 10:04 | Emergency (ER) | payer MEDICARE, MEDICAID ==
[~2017-04-22] VITALS: Ht 172.7 cm; Wt 72.6 kg
[~2017-04-22 10:04] MED LIST changes: +AMPICILLIN TRI500 MG ORAL; +ZYPREXA5 MG ORAL
--- NOTE | 2017-04-22 10:09 | Emergency Room Report ---
History of Present Illness General Chief Complaint: General Complaint Source: Medical Record, EMS Present Illness HPI This patient is brought in from a intermediate facility. He is here because he used a knife to cut a hole in his suprapubic catheter. There are no other complaints. The patient has severe baseline dementia. Allergies: Coded Allergies: No Known Allergies (Unverified , 11/26/14) Patient History Past Medical History: see triage record, DM, HTN, dementia Social History: Denies: smoking, alcohol use, drug use Reviewed Nursing Documentation: PMH: Agreed, PSxH: Agreed Nursing Documentation-PMH Hx Cardiac Problems: Yes Hx Hypertension: Yes Hx Diabetes: Yes Hx Cancer: No Hx Gastrointestinal Problems: No Hx Neurological Problems: No - Insomnia Review of Systems All Other Systems: negative except mentioned in HPI Physical Exam Vital Signs Date Time Temp Pulse Resp B/P (MAP) Pulse Ox O2 Delivery O2 Flow Rate FiO2 04/22/17 10:01 98.4 72 18 140/72 94 Room Air Sp02 EP Interpretation: reviewed, normal General Appearance: no apparent distress, alert, GCS 15, non-toxic Head: normocephalic, atraumatic Eyes: bilateral eye normal inspection, bilateral eye PERRL ENT: hearing grossly normal, normal pharynx, no angioedema, normal voice Neck: full range of motion, supple/symm/no masses Respiratory: chest non-tender, lungs clear, normal breath sounds, no respiratory distress, no retraction, no accessory muscle use, speaking full sentences Cardiovascular #1: regular rate, rhythm, no edema, systolic murmur Gastrointestinal: non tender, soft, non-distended, other - Suprapubic catheter site is edematous with some discharge. The suprapubic catheter is still in place. Rectal: deferred Musculoskeletal: normal range of motion Neurologic: alert, responsive, other - At baseline. Nonfocal. Psychiatric: mood/affect normal Skin: normal color, no rash, warm/dry, well hydrated Medical Decision Making Diagnostic Impression: Primary Impression: Suprapubic catheter dysfunction ER Course This patient presents from a intermediate facility for suprapubic catheter replacement. I consulted the on-call urologist Dr. West who consulted bedside and did a suprapubic catheter replacement without complication or incident. The patient is return to the intermediate facility. See his procedure note. Laboratory Tests Test 04/22/17 10:41 White Blood Count 6.5 K/UL (4.8-10.8) Red Blood Count 4.58 M/UL (4.70-6.10) L Hemoglobin 10.2 G/DL (14.2-18.0) L Hematocrit 34.2 % (42.0-52.0) L Mean Corpuscular Volume 75 FL (80-99) L Mean Corpuscular Hemoglobin 22.3 PG (27.0-31.0) L Mean Corpuscular Hemoglobin Concent 29.9 G/DL (32.0-36.0) L Red Cell Distribution Width 13.1 % (11.6-14.8) Platelet Count 283 K/UL (150-450) Mean Platelet Volume 6.0 FL (6.5-10.1) L Neutrophils (%) (Auto) 72.6 % (45.0-75.0) Lymphocytes (%) (Auto) 18.4 % (20.0-45.0) L Monocytes (%) (Auto) 7.3 % (1.0-10.0) Eosinophils (%) (Auto) 0.9 % (0.0-3.0) Basophils (%) (Auto) 0.8 % (0.0-2.0) Urine Color Pale yellow Urine Appearance Slightly cloudy Urine pH 5 (4.5-8.0) Urine Specific [place] 1.015 (1.005-1.035) Urine Protein 4+ (NEGATIVE) H Urine Glucose (UA) Negative (NEGATIVE) Urine Ketones Negative (NEGATIVE) Urine Occult Blood 4+ (NEGATIVE) H Urine Nitrite Positive (NEGATIVE) H Urine Bilirubin Negative (NEGATIVE) Urine Urobilinogen Normal MG/DL (0.0-1.0) Urine Leukocyte Esterase 3+ (NEGATIVE) H Urine RBC 5-10 /HPF (0 - 0) H Urine WBC 40-60 /HPF (0 - 0) H Urine Squamous Epithelial Cells Few /LPF (NONE/OCC) Urine Bacteria Few /HPF (NONE) Sodium Level 138 MMOL/L (136-145) Potassium Level 4.9 MMOL/L (3.5-5.1) Chloride Level 103 MMOL/L (98-107) Carbon Dioxide Level 25 MMOL/L (21-32) Anion Gap 10 mmol/L (5-15) Blood Urea Nitrogen 44 mg/dL (7-18) H Creatinine 1.7 MG/DL (0.55-1.30) H Estimate Glomerular Filtration Rate mL/min (>60) Glucose Level 195 MG/DL (74-106) H Calcium Level 9.1 MG/DL (8.5-10.1) Total Bilirubin 0.5 MG/DL (0.2-1.0) Aspartate Amino Transferase (AST) 16 U/L (15-37) Alanine Aminotransferase (ALT) 20 U/L (12-78) Alkaline Phosphatase 90 U/L (46-116) Total Protein 7.1 G/DL (6.4-8.2) Albumin 3.5 G/DL (3.4-5.0) Globulin 3.6 g/dL Albumin/Globulin Ratio 1.0 (1.0-2.7) Last Vital Signs Date Time Temp Pulse Resp B/P (MAP) Pulse Ox O2 Delivery O2 Flow Rate FiO2 04/22/17 10:01 98.4 72 18 140/72 94 Room Air Status: improved Disposition: HOME, SELF-CARE Condition: Improved DEWEY CHRISTINA D.O. Apr 22, 2017 10:09
[2017-04-22 10:20] VITALS: BP 143/59
[2017-04-22 10:53] LABS: APPEARANCE,URINE SLIGHTLY CLOUDY; BASOPHILS % (AUTO) 0.8 % (0.0-2.0); EOSINOPHILS % (AUTO) 0.9 % (0.0-3.0); KETONES,URINE NEGATIVE (NEGATIVE); LEUKOCYTE ESTERASE ,URINE 3+ (NEGATIVE); LYMPHOCYTES % (AUTO) 18.4 % (20.0-45.0); MEAN CORPUSCULAR HEMOGLOBIN 22.3 PG (27.0-31.0); MEAN CORPUSCULAR HGB CONC 29.9 G/DL (32.0-36.0); MEAN CORPUSCULAR VOLUME 75 FL (80-99); MONOCYTES % (AUTO) 7.3 % (1.0-10.0); NEUTROPHILS % (AUTO) 72.6 % (45.0-75.0); NITRITE,URINE POSITIVE (NEGATIVE); PH,URINE 5 (4.5-8.0); PLATELET COUNT 283 K/UL (150-450); PROTEIN,URINE 4+ (NEGATIVE); RED BLOOD COUNT 4.58 M/UL (4.70-6.10); RED CELL DISTRIBUTION WIDTH 13.1 % (11.6-14.8); UROBILINOGEN,URINE NORMAL MG/DL (0.0-1.0); WHITE BLOOD COUNT 6.5 K/UL (4.8-10.8)
[2017-04-22 10:59] LABS: ANION GAP 10 mmol/L (5-15); CALCIUM 9.1 MG/DL (8.5-10.1); CARBON DIOXIDE 25 MMOL/L (21-32); CHLORIDE 103 MMOL/L (98-107); CREATININE 1.7 MG/DL (0.55-1.30); POTASSIUM 4.9 MMOL/L (3.5-5.1); SODIUM 138 MMOL/L (136-145)
[2017-04-22 11:04] LABS: BACTERIA,URINE FEW /HPF; SQUAMOUS EPITHELIAL CELL,UR FEW /LPF (NONE/OCC); WBC,URINE 40-60 /HPF (0 - 0)
[2017-04-22 11:10] LABS: ALANINE AMINOTRANSFERASE 20 U/L (12-78); ASPARTATE AMINO TRANSFERASE 16 U/L (15-37); TOTAL PROTEIN 7.1 G/DL (6.4-8.2)
--- NOTE | 2017-04-22 11:17 | Diagnostic Imaging Report ---
Indication: Altered mental status Technique: spiral acquisitions obtained through the brain. Angled axial and coronal 5 x 5 mm slices were reconstructed. No IV contrast utilized. Radiation dose was minimized using automated exposure control Total dose length product 1418 mGycm. CTDIvol(s) 70 mGy Comparison: none FINDINGS: No acute hemorrhage or edema. No mass effect or midline shift. There is age-related enlargement of the ventricles and extra axial CSF spaces. There is periventricular deep white matter ischemic change. Normal healy-white differentiation. Visualized orbits are unremarkable. Visualized sinuses are unremarkable. Intact calvarium. 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 The mastoids are clear. The calvarium is intact IMPRESSION: Chronic and age-related changes. Negative for acute intracranial bleed or mass effect Old infarcts, as described The CT scanner at [facility] is accredited by the [employer] and the scans are performed using protocols designed to limit radiation exposure to as low as reasonably achievable to attain images of sufficient resolution adequate for diagnostic evaluation
[2017-04-22 12:00] VITALS: BP 140/61
--- NOTE | 2017-04-22 12:55 | Consultation ---
History of Present Illness General Date patient seen: Apr 22, 2017 Time patient seen: 12:52 Chief Complaint: Suprapubic tube dysfunction Referring physician: Milton Reason for Consultation: SP tube dysfunction Present Illness HPI 86 yo male, demented, usp dependent. Patient has long time indwelling SP tube. Somehow able to cut the drainage port. Still functioning, but obviously unable to use. No history obtainable due to medical condition. Allergies: Coded Allergies: No Known Allergies (Unverified , 11/26/14) Medication History Scheduled Amlodipine Besylate (Norvasc), 5 MG ORAL DAILY, (Reported) Ampicillin Trihydrate (Ampicillin Trihydrate), 500 MG ORAL QID, (Reported) Aspirin Ec* (Aspirin Ec*), 81 MG ORAL DAILY Citalopram Hydrobromide* (Celexa*), 40 MG ORAL HS, (Reported) Clopidogrel Bisulfate* (Plavix*), 75 MG ORAL DAILY, (Reported) Enalapril Maleate* (Enalapril Maleate*), 20 MG ORAL EVERY 12 HOURS Ergocalciferol (Vitamin D2)* (Vitamin D*), 50,000 UNIT ORAL ONCE A WEEK, ( Reported) Metformin Hcl* (Metformin Hcl*), 500 MG ORAL BID, (Reported) Olanzapine* (Zyprexa*), 5 MG ORAL QHS, (Reported) Polyethylene Glycol* (Miralax*), 17 GM ORAL DAILY, (Reported) Scheduled PRN Acetaminophen (Tylenol), 325 MG ORAL Q6H PRN for Mild Pain/Temp > 100.5, ( Reported) Patient History Limited by: medical condition History Provided By: Medical Record, PMD Healthcare decision maker Resuscitation status Advanced Directive on File Past Medical/Surgical History Past Medical/Surgical History: (1) Ventral hernia (2) Abdominal pain (3) UTI (urinary tract infection) (4) Suprapubic catheter dysfunction Review of Systems All Other Systems: negative except mentioned in HPI Physical Exam General Appearance: no apparent distress HEENT: atraumatic Neck: supple Respiratory/Chest: lungs clear Cardiovascular/Chest: normal rate Abdomen: soft, other - left inguinal vs. abdominal wall hernia?, SP tube site intact appropriate inflammtory changes around site Genitourinary/Rectal: suprapubic catheter Last 24 Hour Vital Signs Date Time Temp Pulse Resp B/P (MAP) Pulse Ox O2 Delivery O2 Flow Rate FiO2 04/22/17 12:00 98.1 64 15 140/61 99 Room Air 04/22/17 10:20 98.4 61 18 143/59 96 Room Air 04/22/17 10:01 98.4 72 18 140/72 94 Room Air Laboratory Tests Test 04/22/17 10:41 White Blood Count 6.5 K/UL (4.8-10.8) Red Blood Count 4.58 M/UL (4.70-6.10) L Hemoglobin 10.2 G/DL (14.2-18.0) L Hematocrit 34.2 % (42.0-52.0) L Mean Corpuscular Volume 75 FL (80-99) L Mean Corpuscular Hemoglobin 22.3 PG (27.0-31.0) L Mean Corpuscular Hemoglobin Concent 29.9 G/DL (32.0-36.0) L Red Cell Distribution Width 13.1 % (11.6-14.8) Platelet Count 283 K/UL (150-450) Mean Platelet Volume 6.0 FL (6.5-10.1) L Neutrophils (%) (Auto) 72.6 % (45.0-75.0) Lymphocytes (%) (Auto) 18.4 % (20.0-45.0) L Monocytes (%) (Auto) 7.3 % (1.0-10.0) Eosinophils (%) (Auto) 0.9 % (0.0-3.0) Basophils (%) (Auto) 0.8 % (0.0-2.0) Urine Color Pale yellow Urine Appearance Slightly cloudy Urine pH 5 (4.5-8.0) Urine Specific [place] 1.015 (1.005-1.035) Urine Protein 4+ (NEGATIVE) H Urine Glucose (UA) Negative (NEGATIVE) Urine Ketones Negative (NEGATIVE) Urine Occult Blood 4+ (NEGATIVE) H Urine Nitrite Positive (NEGATIVE) H Urine Bilirubin Negative (NEGATIVE) Urine Urobilinogen Normal MG/DL (0.0-1.0) Urine Leukocyte Esterase 3+ (NEGATIVE) H Urine RBC 5-10 /HPF (0 - 0) H Urine WBC 40-60 /HPF (0 - 0) H Urine Squamous Epithelial Cells Few /LPF (NONE/OCC) Urine Bacteria Few /HPF (NONE) Sodium Level 138 MMOL/L (136-145) Potassium Level 4.9 MMOL/L (3.5-5.1) Chloride Level 103 MMOL/L (98-107) Carbon Dioxide Level 25 MMOL/L (21-32) Anion Gap 10 mmol/L (5-15) Blood Urea Nitrogen 44 mg/dL (7-18) H Creatinine 1.7 MG/DL (0.55-1.30) H Estimat Glomerular Filtration Rate mL/min (>60) Glucose Level 195 MG/DL (74-106) H Calcium Level 9.1 MG/DL (8.5-10.1) Total Bilirubin 0.5 MG/DL (0.2-1.0) Aspartate Amino Transf (AST/SGOT) 16 U/L (15-37) Alanine Aminotransferase (ALT/SGPT) 20 U/L (12-78) Alkaline Phosphatase 90 U/L (46-116) Total Protein 7.1 G/DL (6.4-8.2) Albumin 3.5 G/DL (3.4-5.0) Globulin 3.6 g/dL Albumin/Globulin Ratio 1.0 (1.0-2.7) Height (Feet): 5 Height (Inches): 8.00 Weight (Pounds): 160 Objective Narrative Procedure: Under sterile conditions, old SP tube removed (20 mL water in balloon ). New 20 mohawk SP placed easily. 20 mL water filled in balloon. Irrigated bladder with 120 mL sterile water, no blood, some debris. Assessment/Plan Status: stable Assessment/Plan 86 yo male, self inflicted SP tube damage. Changed. No further workup necessary. 1. recommend changing SP tube every 6 weeks Arya West M.D. Apr 22, 2017 12:55
[2017-04-22 17:47] VITALS: BP 143/78
== END 2017-04-22 17:51 | disposition home or self-care (01) ==
LOC: EDBD 10:04 → EMR 10:54 → 4E 10:55 → UNDOADMIN 10:55 → EDBEDREQ 11:29 → EMR 17:51
DX: T83.038A Leakage of other urinary catheter, initial encounter (principal); Y84.6 Urinary catheterization as the cause of abnormal reaction of the patient, or of later complication, without mention of misadventure at the time of the procedure; Y92.129 Unspecified place in nursing home as the place of occurrence of the external cause; F03.90 Unspecified dementia, unspecified severity, without behavioral disturbance, psychotic disturbance, mood disturbance, and anxiety; K43.9 Ventral hernia without obstruction or gangrene; I10 Essential (primary) hypertension; E11.9 Type 2 diabetes mellitus without complications
CPT/HCPCS: 36415; 70450; 80053; 81003; 85025; 87086; 87181; 99284

== ENCOUNTER 2017-10-17 09:37 | Inpatient (IN) | payer MEDICARE, MEDICAID ==
[~2017-10-17] VITALS: Ht 172.7 cm; Wt 68.7 kg
[2017-10-17] MEDS ORDERED: Sodium Chloride 500ML 500 ML IV ONE (10:00)
[2017-10-17 10:34] VITALS: BP 122/82
--- NOTE | 2017-10-17 10:37 | Emergency Room Report ---
History of Present Illness General Chief Complaint: Multiple Trauma/Fall Source: Medical Record Present Illness HPI Patient presents from nursing facility with paramedics Patient reports that he has had several falls over the past 2 days He continues to feel weaker than usual He has pain to the right hip area denies any chest pain or shortness of breath Denies any focal weakness Denies any abdominal pain He also has some pain to the lower back region Allergies: Coded Allergies: No Known Allergies (Unverified , 11/26/14) Patient History Past Medical History: see triage record Pertinent Family History: none Reviewed Nursing Documentation: PMH: Agreed; PSxH: Agreed Nursing Documentation-PM Past Medical History: No History, Except For Hx Cardiac Problems: Yes Hx Hypertension: Yes Hx Diabetes: Yes Hx Cancer: No Hx Neurological Problems: No - Insomnia Review of Systems All Other Systems: negative except mentioned in HPI Physical Exam Vital Signs Date Time Temp Pulse Resp B/P (MAP) Pulse Ox O2 Delivery O2 Flow Rate FiO2 10/17/17 09:31 98.5 68 16 122/82 99 Room Air 98.4 Sp02 EP Interpretation: reviewed, normal General Appearance: other - Appears weak Head: normocephalic, atraumatic Eyes: bilateral eye PERRL, bilateral eye EOMI ENT: hearing grossly normal, normal pharynx, TMs + canals normal, uvula midline , dry mucus membranes Neck: full range of motion, supple, no meningismus, no bony tend Respiratory: no respiratory distress, no retraction, no accessory muscle use, crackles - Both lower lobes Cardiovascular #1: normal peripheral pulses, regular rate, rhythm, no edema, no gallop, no JVD, no murmur Gastrointestinal: normal bowel sounds, non tender, soft, no mass, no organomegaly, non-distended, no guarding, no hernia, no pulsatile mass, no rebound Genitourinary: no CVA tenderness Musculoskeletal: other - Tender on palpation of the right hip also proximal femur Neurologic: oriented x3, responsive, sensory intact Psychiatric: mood/affect normal Skin: normal color, no rash, warm/dry, palpation normal Lymphatic: normal inspection, no adenopathy Medical Decision Making Diagnostic Impression: Primary Impression: UTI (urinary tract infection) Additional Impressions: Sepsis Fracture of lumbar spine ER Course Patient is a fairly complex patient with multiple differential to consideration including but not limited to cardiac cardiopulmonary and vascular emergencies Other orthopedic differentials also considered Patient had multiple imaging as well Patient's urine sample shows positive nitrites and white blood cells Patient provided with further hydration X-ray shows questionable findings left lower lobe difficult to evaluate CT imaging also shows acute lumbar spine fractures Orthopedics is consulted for that aspect Given the patient general evaluation general malaise sepsis is considered and patient requiring admission for further care Labs Test 10/17/17 09:50 10/17/17 10:30 White Blood Count 6.1 K/UL (4.8-10.8) Red Blood Count 4.25 M/UL (4.70-6.10) Hemoglobin 9.4 G/DL (14.2-18.0) Hematocrit 31.1 % (42.0-52.0) Mean Corpuscular Volume 73 FL (80-99) Mean Corpuscular Hemoglobin 22.0 PG (27.0-31.0) Mean Corpuscular Hemoglobin Concent 30.1 G/DL (32.0-36.0) Red Cell Distribution Width 12.7 % (11.6-14.8) Platelet Count 199 K/UL (150-450) Mean Platelet Volume 6.2 FL (6.5-10.1) Neutrophils (%) (Auto) 77.3 % (45.0-75.0) Lymphocytes (%) (Auto) 14.9 % (20.0-45.0) Monocytes (%) (Auto) 5.4 % (1.0-10.0) Eosinophils (%) (Auto) 1.2 % (0.0-3.0) Basophils (%) (Auto) 1.2 % (0.0-2.0) Sodium Level 137 MMOL/L (136-145) Potassium Level 5.2 MMOL/L (3.5-5.1) Chloride Level 104 MMOL/L (98-107) Carbon Dioxide Level 22 MMOL/L (21-32) Anion Gap 11 mmol/L (5-15) Blood Urea Nitrogen 35 mg/dL (7-18) Creatinine 2.3 MG/DL (0.55-1.30) Estimat Glomerular Filtration Rate mL/min (>60) Glucose Level 168 MG/DL (74-106) Calcium Level 8.7 MG/DL (8.5-10.1) Total Bilirubin 0.4 MG/DL (0.2-1.0) Aspartate Amino Transf (AST/SGOT) 13 U/L (15-37) Alanine Aminotransferase (ALT/SGPT) 16 U/L (12-78) Alkaline Phosphatase 85 U/L (46-116) Total Creatine Kinase 87 U/L (26-308) Creatine Kinase MB 1.8 NG/ML (0.0-3.6) Creatine Kinase MB Relative Index 2.0 Troponin I 0.000 ng/mL (0.000-0.056) Total Protein 6.9 G/DL (6.4-8.2) Albumin 3.6 G/DL (3.4-5.0) Globulin 3.3 g/dL Albumin/Globulin Ratio 1.1 (1.0-2.7) Urine Color Yellow Urine Appearance Cloudy Urine pH 6 (4.5-8.0) Urine Specific [place] 1.010 (1.005-1.035) Urine Protein 3+ (NEGATIVE) Urine Glucose (UA) Negative (NEGATIVE) Urine Ketones Negative (NEGATIVE) Urine Occult Blood 5+ (NEGATIVE) Urine Nitrite Positive (NEGATIVE) Urine Bilirubin Negative (NEGATIVE) Urine Urobilinogen Normal MG/DL (0.0-1.0) Urine Leukocyte Esterase 3+ (NEGATIVE) Urine RBC 5-10 /HPF (0 - 0) Urine WBC 15-20 /HPF (0 - 0) Urine Squamous Epithelial Cells None /LPF (NONE/OCC) Urine Bacteria Few /HPF (NONE) Rhythm Strip Diag. Results EP Interpretation: yes Rate: 77 Rhythm: NSR, no PVC's, no ectopy Chest X-Ray Diagnostic Results Chest X-Ray Diagnostic Results : Chest X-Ray Ordered: Yes # of Views/Limited/Complete: 1 View Indication: Chest Pain EP Interpretation: Yes Interpretation: no effusion, no pneumothorax, other - Increased left lower lobe marking uncertain etiology Impression: No acute disease Other X-Ray Diagnostic Results Other X-Ray Diagnostic Results : X-Ray ordered: Right femur # of Views/Limited Vs Complete: 2 View Indication: Pain EP Interpretation: Yes Interpretation: no dislocation, no soft tissue swelling, no fractures Impression: No acute disease Electronically Signed by: Josephine Hoskins, DO CT/MRI/US Diagnostic Results CT/MRI/US Diagnostic Results : Impression CT L-spine:IMPRESSION: 1. Querysubtle nondisplaced right posterior rib 11 fracture. 2. Transverse process of bilateral L3 acute fracture. 3. Compression fracture of the L5 vertebral bodyinvolving the anterior midportion of the vertebral body. About 50%loss of height. Newsince prior study. 4. Grade 1 anterolisthesis of L4 on L5 and grade 1 retrolisthesis of L5 S1. Grade 1 retrolisthesis of L3 on L4. 5. Degene CT pelvicMPRESSION: 1. No acute fracture or dislocation of the pelvis or hips. 2. Compression fracture of L5 vertebral bodies age-indeterminate, newsince prior study. Greater than 50%loss of height of the anterior and midportion of the vertebral body. Slight retrolisthesis of L5 on S1. 3. Large left inguinal hernia containing several loops of bowel without evidence of incarceration or obstruction. Similar to prior study. 4. Moderate stool in the rectosigmoid colon with the rectumdistended to 6.8 cm, queryfecal impaction. Last Vital Signs Date Time Temp Pulse Resp B/P (MAP) Pulse Ox O2 Delivery O2 Flow Rate FiO2 10/17/17 09:31 98.5 68 16 122/82 99 Room Air 98.4 Status: improved Disposition: ADMITTED INPATIENT Condition: Serious Referrals: ISIDRO YOON (PCP) Josephine Hoskins DO Oct 17, 2017 10:37
[2017-10-17 10:47] LABS: BASOPHILS % (AUTO) 1.2 % (0.0-2.0); EOSINOPHILS % (AUTO) 1.2 % (0.0-3.0); HEMATOCRIT 31.1 % (42.0-52.0); HEMOGLOBIN 9.4 G/DL (14.2-18.0); LYMPHOCYTES % (AUTO) 14.9 % (20.0-45.0); MEAN CORPUSCULAR VOLUME 73 FL (80-99); MONOCYTES % (AUTO) 5.4 % (1.0-10.0); NEUTROPHILS % (AUTO) 77.3 % (45.0-75.0); PLATELET COUNT 199 K/UL (150-450); RED BLOOD COUNT 4.25 M/UL (4.70-6.10); RED CELL DISTRIBUTION WIDTH 12.7 % (11.6-14.8); WHITE BLOOD COUNT 6.1 K/UL (4.8-10.8)
[2017-10-17 10:52] LABS: ANION GAP 11 mmol/L (5-15); BLOOD UREA NITROGEN 35 mg/dL (7-18); CALCIUM 8.7 MG/DL (8.5-10.1); CARBON DIOXIDE 22 MMOL/L (21-32); CHLORIDE 104 MMOL/L (98-107); CREATININE 2.3 MG/DL (0.55-1.30); POTASSIUM 5.2 MMOL/L (3.5-5.1); SODIUM 137 MMOL/L (136-145)
[2017-10-17 10:55] LABS: APPEARANCE,URINE CLOUDY; BILIRUBIN, URINE NEGATIVE (NEGATIVE); GLUCOSE, URINE (UA) NEGATIVE (NEGATIVE); KETONES,URINE NEGATIVE (NEGATIVE); LEUKOCYTE ESTERASE ,URINE 3+ (NEGATIVE); NITRITE,URINE POSITIVE (NEGATIVE); PH,URINE 6 (4.5-8.0); PROTEIN,URINE 3+ (NEGATIVE); UROBILINOGEN,URINE NORMAL MG/DL (0.0-1.0)
[2017-10-17 11:05] LABS: ALANINE AMINOTRANSFERASE 16 U/L (12-78); ALBUMIN 3.6 G/DL (3.4-5.0); ALBUMIN/GLOBULIN RATIO 1.1 (1.0-2.7); ALKALINE PHOSPHATASE 85 U/L (46-116); ASPARTATE AMINO TRANSFERASE 13 U/L (15-37); BILIRUBIN,TOTAL 0.4 MG/DL (0.2-1.0); CKMB 1.8 NG/ML (0.0-3.6); CREATINE KINASE 87 U/L (26-308)
[2017-10-17 11:07] LABS: COLOR,URINE YELLOW
[2017-10-17] MEDS ORDERED: Clindamycin 600mg 50 ML IVPB ONE (11:45)
--- NOTE | 2017-10-17 12:25 | Diagnostic Imaging Report ---
EXAM: XR Chest, 1 View CLINICAL HISTORY: CP TECHNIQUE: Frontal view of the chest. COMPARISON: Chest x-ray 03/29/17 FINDINGS: Lungs: Hypoventilatory lungs. Bibasilar lung atelectasis. Pleural space: Tiny left pleural effusion. No pneumothorax. Heart: Cardiomegaly. Mediastinum: Unremarkable. Bones/joints: Mild degenerative changes bilateral shoulders. Vasculature: Aortic knob calcification. IMPRESSION: Cardiomegaly. Hypoventilatory lungs. Bibasilar lung atelectasis. Tiny left pleural effusion.
--- NOTE | 2017-10-17 12:27 | Diagnostic Imaging Report ---
EXAM: XR Right Femur, 2 Views CLINICAL HISTORY: PAIN TECHNIQUE: Frontal and lateral views of the right femur. COMPARISON: No relevant prior studies available. FINDINGS: Bones/joints: Moderate to severe degenerative changes of the knee. No acute fracture. No dislocation. Soft tissues: Unremarkable. Vasculature: Atherosclerotic vascular disease. IMPRESSION: 1. No fracture or malalignment. 2. Moderate to severe degenerative changes of the knee.
[2017-10-17 12:31] VITALS: BP 130/55
--- NOTE | 2017-10-17 12:33 | Diagnostic Imaging Report ---
EXAM: CT Pelvis Without Intravenous Contrast CLINICAL HISTORY: TRAUMA TECHNIQUE: Axial computed tomography images of the pelvis without intravenous contrast. CTDI is 11.41 mGy and DLP is 338 mGy-cm. One or more of the following dose reduction techniques were used: automated exposure control, adjustment of the mA and/or kV according to patient size, use of iterative reconstruction technique. COMPARISON: CT abdomen and pelvis 12/13/15 FINDINGS: Bowel: Moderate stool in the rectosigmoid colon with the rectum distended to 6.8 cm, query fecal impaction. No mucosal thickening. Appendix: Normal appendix. Intraperitoneal space: Unremarkable. No free air. No significant fluid collection. Bladder: Unremarkable. No stones. Reproductive: Unremarkable as visualized. Bones/joints: Compression fracture of L5 vertebral bodies age- indeterminate. Greater than 50% loss of height of the anterior and midportion of the vertebral body. Slight retrolisthesis of L5 on S1. Mild bilateral lateral hip and buttock soft tissue induration. No dislocation. Soft tissues: Large left inguinal hernia containing several loops of bowel without evidence of incarceration or obstruction. Small fat- containing umbilical hernia. Vasculature: Atherosclerotic vascular disease. No lower abdominal aortic aneurysm. Lymph nodes: Unremarkable. No enlarged lymph nodes. IMPRESSION: 1. No acute fracture or dislocation of the pelvis or hips. 2. Compression fracture of L5 vertebral bodies age-indeterminate, new since prior study. Greater than 50% loss of height of the anterior and midportion of the vertebral body. Slight retrolisthesis of L5 on S1. 3. Large left inguinal hernia containing several loops of bowel without evidence of incarceration or obstruction. Similar to prior study. 4. Moderate stool in the rectosigmoid colon with the rectum distended to 6.8 cm, query fecal impaction.
--- NOTE | 2017-10-17 12:42 | Diagnostic Imaging Report ---
EXAM: CT Lumbar Spine Without Intravenous Contrast CLINICAL HISTORY: TRAUMA TECHNIQUE: Axial computed tomography images of the lumbar spine without intravenous contrast. CTDI is 22.61 mGy and DLP is 601.5 mGy-cm. One or more of the following dose reduction techniques were used: automated exposure control, adjustment of the mA and/or kV according to patient size, use of iterative reconstruction technique. COMPARISON: CT abdomen and pelvis 12/13/15 FINDINGS: Vertebrae: Transverse process of bilateral L3 acute fracture. Compression fracture of the L5 vertebral body involving the anterior midportion of the vertebral body. About 50% loss of height. New since prior study. Grade 1 anterolisthesis of L4 on L5 and grade 1 retrolisthesis of L5 S1. Grade 1 retrolisthesis of L3 on L4. Other bones/joints: Query subtle nondisplaced right posterior rib 11 fracture. Discs/spinal canal/neural foramina: L2-3 broad-based disc bulge. Facet arthropathy. Mild to moderate central canal narrowing. Moderate to severe bilateral neural foraminal narrowing. L3-4 broad-based disc bulge. Facet arthropathy. Mild to moderate central canal narrowing. Moderate bilateral neural foraminal narrowing. L4-5 broad-based disc bulge. Facet arthropathy. Moderate to severe central canal narrowing. Moderate to severe bilateral neural foraminal narrowing. L5-S1 left paracentral disc protrusion. Mild to moderate bilateral neural foraminal narrowing. Soft tissues: Unremarkable. Vasculature: Atherosclerotic vascular disease. Kidneys and ureters: Mild bilateral perinephric stranding. IMPRESSION: 1. Query subtle nondisplaced right posterior rib 11 fracture. 2. Transverse process of bilateral L3 acute fracture. 3. Compression fracture of the L5 vertebral body involving the anterior midportion of the vertebral body. About 50% loss of height. New since prior study. 4. Grade 1 anterolisthesis of L4 on L5 and grade 1 retrolisthesis of L5 S1. Grade 1 retrolisthesis of L3 on L4. 5. Degenerative changes multiple levels with disc space narrowing as described above, most severe at L4-5.
[2017-10-17] MEDS ORDERED: traMADol 50mg tab ORAL PRN (14:15)
--- NOTE | 2017-10-17 15:51 | Consultation ---
Consult Note Consult Note patient seen and evaluated. L5 spinal fracture with approximately 50% compression. No retropulsion noted. Neuro grossly intact. Recommend spine surgical consult for bracing vs Kyphoplasty. Spinal precaution until evaluated by emergency management program specialist. Dr. Sweeney aware of the need for spine eval and will follow up. Happy to assist as needed. Thank you. Alexy Singh MD Oct 17, 2017 15:51
[2017-10-17] MEDS: NovoLOG Insulin Flexpen SUBQ SCH ×2 (16:30→21:00)
[2017-10-17 20:00] VITALS: BP 141/72
[2017-10-17] MEDS: Clindamycin 600mg 50 ML IV SCH (20:04)
[2017-10-17] MEDS: Citalopram Hydrobromide 10mg Tab ORAL SCH (21:01)
[2017-10-17] MEDS: Heparin 5000 units/ml inj SUBQ SCH (21:03)
--- NOTE | 2017-10-17 22:15 | History and Physical Report ---
DATE OF ADMISSION: 10/17/2017 CHIEF COMPLAINT: Fall at the assisted living. HISTORY OF PRESENT ILLNESS: This is an 86-year-old [place] male, who was brought in by paramedics from the assisted [facility] for complaint of a fall. The patient has been confused for the past two to three days and was being treated with oral antibiotic for urinary tract infection. The patient did not respond to antibiotic orally and due to the fact that he fell, the patient was brought into the ER for evaluation. In the emergency room, he had slightly hypoxia with O2 saturation around 91% and chest x-ray showed questionable pneumonia and UA was consistent with urinary tract infection. In the emergency room, the patient was also hydrated for slight dehydration and was started on clindamycin antibiotic for urinary tract infection. PAST MEDICAL HISTORY: Includes history of hypertension, diabetes, Alzheimer disease, dementia, coronary artery disease, and depression. PAST SURGICAL HISTORY: Noncontributory except for suprapubic catheter placement. MEDICATIONS: Please refer to the medication list from the [facility]. ALLERGIES: Azithromycin. SOCIAL HISTORY: Denies any smoking, alcohol, or drug use. FAMILY HISTORY: Noncontributory. REVIEW OF SYSTEMS: Negative except for HPI. No nausea or vomiting. No abdominal pain. No diarrhea. PHYSICAL EXAMINATION: VITAL SIGNS: Temperature 98.5 degrees, pulse 68, respirations 16, blood pressure is 122/82, and pulse oximetry 99% except it was 91% on admission. GENERAL APPEARANCE: He appears weak, slightly confused. HEENT: Normocephalic and normochromic. Extraocular muscles intact. Throat is clear. NECK: Supple. No lymphadenopathy. RESPIRATIONS: Clear to auscultation bilaterally. No rales or rhonchi. He has slight crackles on both lower lobes. CARDIOVASCULAR: Regular rate and rhythm. No murmur. No gallop. GASTROINTESTINAL: Soft, nontender, and nondistended. Positive bowel sounds. GENITOURINARY: No CVA tenderness. NEUROLOGICAL: Oriented x2, responsive, but again slightly confused. SKIN: No rash. EXTREMITIES: No edema, cyanosis, or clubbing. LABORATORY AND DIAGNOSTIC DATA: WBC 6.1, hemoglobin 9.4, hematocrit 31.1, MCV 73, platelet count 199,000, neutrophils 77, and lymphocytes 14.9. Sodium 137, potassium 5.2, chloride 104, carbon dioxide 22, BUN 35, creatinine 2.3, glucose 168, calcium 8.7, AST 13, ALT 16, and alkaline phosphatase 85. Troponin less than 0. Albumin 3.6. UA showed +5 occult blood, nitrite positive, +3 urine protein, urine rbc's 5 to 10, urine wbc's 15 to 20, and urine bacteria is few. Imaging, pelvic CT scan, no acute fracture or dislocation of the pelvis or hip. Compression fracture of L5 vertebral body, new since prior study and greater than 50% loss of height in the anterior and midportion of the vertebral body. Slight retrolisthesis of L5 on S1 and large left inguinal hernia without obstruction or incarceration. Femur x-ray showed no fracture or malalignment. [id number] degenerative changes of the knee and then chest x-ray showed cardiomegaly, bibasilar lung atelectasis, and tiny left pleural effusion. EKG showed normal sinus rhythm. No PVC and no ectopy at a rate of 77 beats per minute. IMPRESSION: 1. Urinary tract infection- will cont clinda and follow up cultures. 2. Possible sepsis - cont antibiotic and follow up cultures. 3. Dehydration - cont IVF NS at 60 cc/hr. 4. Hypertension - cont home medication. 5. Diabetes mellitus type 2 - will switch to insulin SSI 6. Coronary artery disease. 7. Depression. 8. Dementia. 9. L5 compression fracture - will have spine surgery evaluate the patient. PLAN: The patient will be admitted for minimum of two-night stay for treatment of urinary tract infection and possible sepsis. Suad Loving M.D. DR: Eduardo JOB#: [id number] CC: EMILY
[2017-10-18] VITALS: BP 143/58
--- NOTE | 2017-10-18 02:45 | Consultation ---
DATE OF CONSULTATION: 10/17/2017 ORTHOPEDIC CONSULTATION CONSULTING PHYSICIAN: Alexy Singh M.D. REASON FOR CONSULTATION: Lumbar spine fracture. BRIEF HISTORY: The patient is a pleasant 86-year-old gentleman, who apparently was in a penitentiary. He has been diagnosed with UTI. He was unstable and felt some dizziness and had multiple falls over the past two days. He was admitted to the hospital due to UTI, dehydration, as well as lumbar spine pain in the hip and right-sided leg pain. A CT of the lumbar spine showed an acute L5 fracture. Orthopedic consultation was obtained. The patient was previously ambulatory. He has had some previous degenerative and insufficiency fracture of the lumbar spine, however, this is the most acute issue he has had from his recent fall. PAST MEDICAL HISTORY: History of osteoporosis. PAST SURGICAL HISTORY: None noted. MEDICATIONS: Please see chart. ALLERGIES: No known drug allergies. SOCIAL HISTORY: He lives in a penitentiary. He is able to communicate. He appears to be slightly confused. REVIEW OF SYSTEMS: Appears limited due to confusion, but generally noncontributory. PHYSICAL EXAMINATION: GENERAL: The patient is a pleasant gentleman, cooperative with examination. VITAL SIGNS: He is afebrile, pulse is 68, and respirations 16. MUSCULOSKELETAL: Examination revealed that he is able to move all his upper extremities and lower extremities. Neurological examination is grossly intact. There are no significant reflex changes that could be appreciated. Sensation is grossly intact. Palpation revealed he has got tenderness over the lower lumbar spine as well as over the bilateral SI joints. He is able to move the hips without much difficulty. DIAGNOSTIC DATA: CT scan of the lumbar spine is reviewed. There is evidence of L5 compression fracture that could be appreciated. This appears to be acute. There is no other calcification. There may be some transverse process fracture levels above. However, what the most acuity issue is the L5 compression fracture. There is no evidence of retropulsion. IMPRESSION: 1. Acute L5 compression fracture, approximately 50% of the height. 2. Possible transverse process fractures at levels above. 3. Status post multiple falls due to urinary tract infection and dehydration. PLAN: At this time, I had a discussion with the patient. I explained to him my findings. I also had a discussion with Dr. Hoskins, the ER physician. I recommend the patient to be evaluated by strategy specialist. Possible bracing vs kyphoplasty should be discussed with the patient. Furthermore, the patient should be on spinal precaution and bedrest until cleared by Spinal Surgery for ambulation. At this time, from Orthopedic standpoint, the patient is stable, although the patient requires spinal evaluation either by an orthopedic spine surgeon or neurosurgeon subspecialty in spine. All questions were answered. This was discussed with Dr. Hoskins, who will relay this message to Dr. Loving, the admitting physician. Dr. Loving will arrange for spinal evaluation. All questions were answered. Alexy Singh M.D. DR: DAVID JOB#: [id number] CC: EMILY
[2017-10-18 04:00] VITALS: BP 146/66
[2017-10-18] MEDS: Clindamycin 600mg 50 ML IV SCH ×2 (04:05→12:59)
[2017-10-18] MEDS: NovoLOG Insulin Flexpen SUBQ SCH ×4 (06:30→21:13)
[2017-10-18 07:20] LABS: BASOPHILS % (AUTO) 1.2 % (0.0-2.0); EOSINOPHILS % (AUTO) 1.4 % (0.0-3.0); HEMATOCRIT 32.9 % (42.0-52.0); LYMPHOCYTES % (AUTO) 21.4 % (20.0-45.0); MEAN CORPUSCULAR VOLUME 73 FL (80-99); MONOCYTES % (AUTO) 6.7 % (1.0-10.0); NEUTROPHILS % (AUTO) 69.4 % (45.0-75.0); PLATELET COUNT 228 K/UL (150-450); RED CELL DISTRIBUTION WIDTH 12.8 % (11.6-14.8); WHITE BLOOD COUNT 8.1 K/UL (4.8-10.8)
[2017-10-18 07:52] LABS: ANION GAP 10 mmol/L (5-15); BLOOD UREA NITROGEN 30 mg/dL (7-18); CALCIUM 8.6 MG/DL (8.5-10.1); CARBON DIOXIDE 25 MMOL/L (21-32); CHLORIDE 106 MMOL/L (98-107); CREATININE 1.8 MG/DL (0.55-1.30); SODIUM 140 MMOL/L (136-145)
[2017-10-18 08:00] VITALS: BP 142/66
--- NOTE | 2017-10-18 08:35 | General Progress Note ---
Assessment/Plan Status: stable Assessment/Plan 1. UTI - cont IV clinda. will f/u with urine Cx. 2. Questionable Sepsis - cont Clinda and f/u blood cx. 3. mininal pleural effusion 4. L5 Compression fracture - will consult spine surgery Dr Castaneda. 3. Large left inguinal hernia - reducable. 4. HTN - cont home meds. controlled. 5. Dementia 6. Nondisplaced right posterior 11th rib fracture - cont pain management. 7. Transverse process of bilateral L3 acute fracture s/p fall 8. Depression - on celexa. Subjective Date patient seen: Oct 18, 2017 Time patient seen: 08:10 Constitutional: Reports: weakness HEENT: Reports: no symptoms Cardiovascular: Reports: no symptoms Respiratory: Reports: no symptoms Gastrointestinal/Abdominal: Reports: no symptoms Genitourinary: Reports: no symptoms Neurologic/Psychiatric: Reports: no symptoms Endocrine: Reports: no symptoms Hematologic/Lymphatic: Reports: no symptoms Allergies: Coded Allergies: No Known Allergies (Unverified , 11/26/14) Subjective This morning he is slightly better but still confused. Afebrile. no nausea or vomiting. No sob or chest pain. Objective Last 24 Hour Vital Signs Date Time Temp Pulse Resp B/P (MAP) Pulse Ox O2 Delivery O2 Flow Rate FiO2 10/18/17 04:00 97.2 70 17 146/66 96 Room Air 97.2 10/18/17 00:00 98.1 69 19 143/58 94 Room Air 98.1 10/17/17 20:00 98.0 65 17 141/72 94 Room Air 98.0 10/17/17 15:56 98.0 12 117/60 96 Nasal Cannula 2.0 10/17/17 12:31 98.4 60 23 130/55 99 Room Air 98.4 10/17/17 12:31 98.4 10/17/17 10:52 98.4 10/17/17 10:34 98.4 16 122/82 99 Room Air 98.4 10/17/17 09:31 98.5 68 16 122/82 99 Room Air 98.4 Intake and Output 10/17/17 10/18/17 19:00 07:00 Intake Total 60 ml 740 ml Output Total 650 ml 1000 ml Balance -590 ml -260 ml Intake IV Total 60 ml 740 ml Output Urine Total 650 ml 1000 ml # Bowel Movements 2 Laboratory Tests 10/17/17 09:50: White Blood Count 6.1, Red Blood Count 4.25L, Hemoglobin 9.4L, Hematocrit 31.1L , Mean Corpuscular Volume 73L, Mean Corpuscular Hemoglobin 22.0L, Mean Corpuscular Hemoglobin Concent 30.1L, Red Cell Distribution Width 12.7, Platelet Count 199, Mean Platelet Volume 6.2L, Neutrophils (%) (Auto) 77.3H, Lymphocytes (%) (Auto) 14.9L, Monocytes (%) (Auto) 5.4, Eosinophils (%) (Auto) 1.2, Basophils (%) (Auto) 1.2, Sodium Level 137, Potassium Level 5.2H, Chloride Level 104, Carbon Dioxide Level 22, Anion Gap 11, Blood Urea Nitrogen 35H, Creatinine 2.3H, Estimat Glomerular Filtration Rate , Glucose Level 168H, Calcium Level 8.7, Total Bilirubin 0.4, Aspartate Amino Transf (AST/SGOT) 13L, Alanine Aminotransferase (ALT/SGPT) 16, Alkaline Phosphatase 85, Total Creatine Kinase 87, Creatine Kinase MB 1.8, Creatine Kinase MB Relative Index 2.0, Troponin I 0.000, Total Protein 6.9, Albumin 3.6, Globulin 3.3, Albumin/ Globulin Ratio 1.1 10/17/17 10:30: Urine Color Yellow, Urine Appearance Cloudy, Urine pH 6, Urine Specific [place] 1.010, Urine Protein 3+H, Urine Glucose (UA) Negative, Urine Ketones Negative, Urine Occult Blood 5+H, Urine Nitrite PositiveH, Urine Bilirubin Negative, Urine Urobilinogen Normal, Urine Leukocyte Esterase 3+H, Urine RBC 5-10H, Urine WBC 15-20H, Urine Squamous Epithelial Cells None, Urine Bacteria Few 10/18/17 05:45: White Blood Count 8.1, Red Blood Count 4.50L, Hemoglobin 10.0L, Hematocrit 32.9L , Mean Corpuscular Volume 73L, Mean Corpuscular Hemoglobin 22.3L, Mean Corpuscular Hemoglobin Concent 30.5L, Red Cell Distribution Width 12.8, Platelet Count 228, Mean Platelet Volume 6.4L, Neutrophils (%) (Auto) 69.4, Lymphocytes (%) (Auto) 21.4, Monocytes (%) (Auto) 6.7, Eosinophils (%) (Auto) 1.4, Basophils (%) (Auto) 1.2, Sodium Level 140, Potassium Level 5.0, Chloride Level 106, Carbon Dioxide Level 25, Anion Gap 10, Blood Urea Nitrogen 30H, Creatinine 1.8H, Estimat Glomerular Filtration Rate , Glucose Level 130H, Calcium Level 8.6, Hemoglobin A1c 7.3H Height (Feet): 5 Height (Inches): 8.00 Weight (Pounds): 152 General Appearance: no apparent distress, other - slightly confused EENT: normal ENT inspection Neck: non-tender, normal alignment, supple Cardiovascular: normal peripheral pulses, normal rate, regular rhythm Respiratory/Chest: chest wall non-tender, lungs clear, normal breath sounds, no respiratory distress Abdomen: normal bowel sounds, non tender, soft Extremities: normal range of motion, non-tender Edema: no edema noted Arm (L), no edema noted Arm (R), no edema noted Leg (L), no edema noted Leg (R), no edema noted Pedal (L), no edema noted Pedal (R), no edema noted Generalized Neurologic: responsive Skin: warm/dry Lymphatic: normal anterior cervical (L), normal anterior cervical (R), normal posterior cervical (L), normal posterior cervical (R), normal submandibular (L) , normal submandibular (R), normal supraclavicular (L), normal supraclavicular ( R), normal axillary (L), normal axillary (R), normal inguinal (L), normal inguinal (R), normal other ISIDRO YOON Oct 18, 2017 08:35
[2017-10-18] MEDS: Heparin 5000 units/ml inj SUBQ SCH ×2 (09:00→21:12)
[2017-10-18] MEDS: Aspirin EC 81mg tab ORAL SCH (10:33)
[2017-10-18 12:00] VITALS: BP 146/66
--- NOTE | 2017-10-18 12:32 | Cardiology Report ---
APPROVED REPORT EKG Measurement Heart [id number] Sinus bradycardia with first degree AV block. Possible Anterior infarct, age undetermined Abnormal ECG
[2017-10-18 16:00] VITALS: BP 154/64
--- NOTE | 2017-10-18 17:32 | Consultation ---
Consult Note Consult Note an 86 YO male with dementia , who lives at SNF, had multiple falls was sent to [facility] for evalutaion and was found to have UTI Assessment/Plan 1. CAUTI : will stop clindamycin and start him on ceftriaxon and vancomycin empirically since he had H/O E. faecalis and MSSA UTI 2. possible sepsis , will send blood culture ans start vancomycin with ceftriaxon empirically 3. dehydration : continue IVF for hydration , monitor electrolytes 4. GUERO: due to dehydration , continue hydration, avoid nephrotoxic , monitor renal function full dictation report to follow , thank you for the consult Frida Billings M.D. Oct 18, 2017 17:32
[2017-10-18] MEDS: cefTRIAXone 1 GM in D5W 110 ML IVPB SCH (18:56)
[2017-10-18 20:00] VITALS: BP 116/65
[2017-10-18] MEDS ORDERED: Vancomycin 1gm/D5W 275ml IVPB ONE ×2 (20:00)
[2017-10-18] MEDS ORDERED: Clindamycin 600mg 50 ML IV SCH (20:00)
[2017-10-18] MEDS ORDERED: LORazepam Inj 2mg/ml 1ml IV PRN (20:53)
[2017-10-18] MEDS: Citalopram Hydrobromide 10mg Tab ORAL SCH (21:09)
[2017-10-19] VITALS: BP 137/74
[2017-10-19 04:00] VITALS: BP 129/71
[2017-10-19] MEDS: NovoLOG Insulin Flexpen SUBQ SCH ×4 (06:30→22:34)
[2017-10-19 06:55] LABS: BASOPHILS % (AUTO) 1.1 % (0.0-2.0); EOSINOPHILS % (AUTO) 4.5 % (0.0-3.0); HEMATOCRIT 28.9 % (42.0-52.0); HEMOGLOBIN 8.7 G/DL (14.2-18.0); LYMPHOCYTES % (AUTO) 25.8 % (20.0-45.0); MEAN CORPUSCULAR VOLUME 73 FL (80-99); MONOCYTES % (AUTO) 9.3 % (1.0-10.0); NEUTROPHILS % (AUTO) 59.3 % (45.0-75.0); PLATELET COUNT 188 K/UL (150-450); RED BLOOD COUNT 3.97 M/UL (4.70-6.10); RED CELL DISTRIBUTION WIDTH 13.3 % (11.6-14.8); WHITE BLOOD COUNT 5.7 K/UL (4.8-10.8)
[2017-10-19 07:09] LABS: ANION GAP 8 mmol/L (5-15); BLOOD UREA NITROGEN 27 mg/dL (7-18); CALCIUM 8.4 MG/DL (8.5-10.1); CARBON DIOXIDE 24 MMOL/L (21-32); CHLORIDE 108 MMOL/L (98-107); CREATININE 1.8 MG/DL (0.55-1.30); POTASSIUM 4.6 MMOL/L (3.5-5.1); SODIUM 140 MMOL/L (136-145)
[2017-10-19 08:00] VITALS: BP 131/55
--- NOTE | 2017-10-19 08:48 | General Progress Note ---
Assessment/Plan Status: stable Assessment/Plan 1. UTI - on Rocephin and Vanco per ID. will f/u with urine Cx. 2. Questionable Sepsis - cont Rocephin and Vanco and f/u blood cx. 3. mininal pleural effusion 4. L5 Compression fracture - spine surgens not available. may need to have patient f/u as outpatient. 3. Large left inguinal hernia - reducable. 4. HTN - cont home meds. controlled. 5. Dementia 6. Nondisplaced right posterior 11th rib fracture - cont pain management. 7. Transverse process of bilateral L3 acute fracture s/p fall 8. Depression - on celexa. Subjective Date patient seen: Oct 19, 2017 Time patient seen: 08:30 Constitutional: Reports: weakness HEENT: Reports: no symptoms Cardiovascular: Reports: no symptoms Respiratory: Reports: no symptoms Gastrointestinal/Abdominal: Reports: no symptoms Genitourinary: Reports: no symptoms Neurologic/Psychiatric: Reports: no symptoms Endocrine: Reports: no symptoms Hematologic/Lymphatic: Reports: no symptoms Allergies: Coded Allergies: No Known Allergies (Unverified , 11/26/14) Subjective He was aggitated and confused last night. this morning he is sleeping. Afebrile. no nausea or vomiting. No sob or chest pain. Objective Last 24 Hour Vital Signs Date Time Temp Pulse Resp B/P (MAP) Pulse Ox O2 Delivery O2 Flow Rate FiO2 10/19/17 04:00 97.7 77 19 129/71 98 Room Air 97.7 10/19/17 00:00 98.0 64 22 137/74 98 Room Air 98.0 10/18/17 20:00 98.2 69 22 116/65 98 Room Air 98.2 10/18/17 16:00 98.2 66 22 154/64 94 Room Air 98.2 10/18/17 12:00 98.0 81 19 146/66 94 Room Air 98.0 10/18/17 10:33 69 142/66 10/18/17 10:32 142/66 Intake and Output 10/18/17 10/19/17 19:00 07:00 Intake Total 720 ml 755.000 ml Output Total 1300 ml 850 ml Balance -580 ml -95.000 ml Intake Oral 720 ml IV Total 755.000 ml Output Urine Total 1300 ml 850 ml # Bowel Movements 3 1 Laboratory Tests 10/19/17 05:10: White Blood Count 5.7, Red Blood Count 3.97L, Hemoglobin 8.7L, Hematocrit 28.9L , Mean Corpuscular Volume 73L, Mean Corpuscular Hemoglobin 22.0L, Mean Corpuscular Hemoglobin Concent 30.3L, Red Cell Distribution Width 13.3, Platelet Count 188, Mean Platelet Volume 6.0L, Neutrophils (%) (Auto) 59.3, Lymphocytes (%) (Auto) 25.8, Monocytes (%) (Auto) 9.3, Eosinophils (%) (Auto) 4.5H, Basophils (%) (Auto) 1.1, Sodium Level 140, Potassium Level 4.6, Chloride Level 108H, Carbon Dioxide Level 24, Anion Gap 8, Blood Urea Nitrogen 27H, Creatinine 1.8H, Estimat Glomerular Filtration Rate , Glucose Level 97, Calcium Level 8.4L Height (Feet): 5 Height (Inches): 8.00 Weight (Pounds): 152 General Appearance: no apparent distress Neck: non-tender, normal alignment, supple Cardiovascular: normal peripheral pulses, normal rate, regular rhythm Respiratory/Chest: chest wall non-tender, lungs clear, normal breath sounds Abdomen: normal bowel sounds, non tender, soft Extremities: normal range of motion, non-tender Edema: no edema noted Arm (L), no edema noted Arm (R), no edema noted Leg (L), no edema noted Leg (R), no edema noted Pedal (L), no edema noted Pedal (R), no edema noted Generalized Neurologic: responsive Skin: warm/dry Lymphatic: normal anterior cervical (L), normal anterior cervical (R), normal posterior cervical (L), normal posterior cervical (R), normal submandibular (L) , normal submandibular (R), normal supraclavicular (L), normal supraclavicular ( R), normal axillary (L), normal axillary (R), normal inguinal (L), normal inguinal (R), normal other ISIDRO YOON Oct 19, 2017 08:48
[2017-10-19] MEDS: Aspirin EC 81mg tab ORAL SCH (09:00)
[2017-10-19] MEDS: Heparin 5000 units/ml inj SUBQ SCH ×2 (11:01→22:33)
[2017-10-19 12:00] VITALS: BP 119/55
--- NOTE | 2017-10-19 14:17 | Infectious Diseases Prog Note ---
Assessment/Plan Problems: (1) Catheter-associated urinary tract infection Assessment & Plan: due to enterococcus faecalis as per the updated report today by [facility] , so will switch ceftriaxon to vancomycin and treat him for 10 days total (2) ARF (acute renal failure) Assessment & Plan: due to dehydration, continue IVF, and monitor renal function . (3) Altered level of consciousness Assessment & Plan: improving due to UTI and dehydration , avoid sedatives Subjective Constitutional: Reports: no symptoms HEENT: Reports: congestion, other - dry sticky secretions in his eye Respiratory: Reports: no symptoms Breasts: Reports: no symptoms Cardiovascular: Reports: no symptoms Gastrointestinal/Abdominal: Reports: no symptoms Genitourinary: Reports: no symptoms Neurologic: Reports: weakness, confusion Skin: Reports: other - bruises on the back Endocrine: Reports: no symptoms Hematologic: Reports: no symptoms Musculoskeletal: Reports: pain Allergies: Coded Allergies: No Known Allergies (Unverified , 11/26/14) Subjective he was awake, and interactive, not in distress Objective Vital Signs Last 24 Hour Vital Signs Date Time Temp Pulse Resp B/P (MAP) Pulse Ox O2 Delivery O2 Flow Rate FiO2 10/19/17 12:00 98.2 56 18 119/55 96 Room Air 98.2 10/19/17 09:00 131/55 10/19/17 09:00 59 131/55 10/19/17 08:00 97.2 59 19 131/55 92 Room Air 97.2 10/19/17 04:00 97.7 77 19 129/71 98 Room Air 97.7 10/19/17 00:00 98.0 64 22 137/74 98 Room Air 98.0 10/18/17 20:00 98.2 69 22 116/65 98 Room Air 98.2 10/18/17 16:00 98.2 66 22 154/64 94 Room Air 98.2 Height (Feet): 5 Height (Inches): 8.00 Weight (Pounds): 152 General Appearance: WD/WN, no acute distress, cachetic HEENT: normocephalic, atraumatic, anicteric, mucous membranes moist, pharynx normal, supple, no JVD, other - dry sticky secretions in his eyes Respiratory/Chest: chest wall non-tender, no respiratory distress, no accessory muscle use, decreased breath sounds, crackles/rales Cardiovascular: normal peripheral pulses, normal rate, regular rhythm, no gallop/murmur, no JVD Abdomen: normal bowel sounds, soft, non tender, no organomegaly, non distended , no mass, no scars Extremities: no cyanosis, no clubbing Skin: no rash, no lesions, ulcers Neurologic/Psychiatric: alert, responsive Lymphatic: no neck adenopathy, no groin adenopathy Microbiology Date/Time Source Procedure Growth Status 10/17/17 10:30 Nasal Nares MRSA Culture - Final NO METHICILLIN RESISTANT STAPH AUREUS... Complete 10/17/17 10:30 Urine,Clean Catch Urine Culture - Preliminary Streptococcus Species Resulted 10/17/17 10:30 Rectum VRE Culture - Final NO VANCOMYCIN RESISTANT ENTEROCOCCUS ... Complete Laboratory Tests Test 10/19/17 05:10 White Blood Count 5.7 K/UL (4.8-10.8) Red Blood Count 3.97 M/UL (4.70-6.10) L Hemoglobin 8.7 G/DL (14.2-18.0) L Hematocrit 28.9 % (42.0-52.0) L Mean Corpuscular Volume 73 FL (80-99) L Mean Corpuscular Hemoglobin 22.0 PG (27.0-31.0) L Mean Corpuscular Hemoglobin Concent 30.3 G/DL (32.0-36.0) L Red Cell Distribution Width 13.3 % (11.6-14.8) Platelet Count 188 K/UL (150-450) Mean Platelet Volume 6.0 FL (6.5-10.1) L Neutrophils (%) (Auto) 59.3 % (45.0-75.0) Lymphocytes (%) (Auto) 25.8 % (20.0-45.0) Monocytes (%) (Auto) 9.3 % (1.0-10.0) Eosinophils (%) (Auto) 4.5 % (0.0-3.0) H Basophils (%) (Auto) 1.1 % (0.0-2.0) Sodium Level 140 MMOL/L (136-145) Potassium Level 4.6 MMOL/L (3.5-5.1) Chloride Level 108 MMOL/L (98-107) H Carbon Dioxide Level 24 MMOL/L (21-32) Anion Gap 8 mmol/L (5-15) Blood Urea Nitrogen 27 mg/dL (7-18) H Creatinine 1.8 MG/DL (0.55-1.30) H Estimat Glomerular Filtration Rate mL/min (>60) Glucose Level 97 MG/DL (74-106) Calcium Level 8.4 MG/DL (8.5-10.1) L Current Medications Medications (Trade) Dose Ordered Sig/Charlene Route PRN Reason Start Time Stop Time Status Last Admin Dose Admin Amlodipine Besylate (Norvasc) 5 mg DAILY ORAL 10/18/17 09:00 11/17/17 08:59 10/18/17 10:33 Aspirin (Ecotrin) 81 mg DAILY ORAL 10/18/17 09:00 11/17/17 08:59 10/18/17 10:33 Bisacodyl (Dulcolax) 10 mg DAILYPRN PRN RECTAL Constipation 10/17/17 14:15 11/16/17 14:14 Ceftriaxone Sodium 1 gm/ Dextrose 110 ml @ 220 mls/hr Q24H IVPB 10/18/17 18:00 10/25/17 17:59 10/18/17 18:56 Citalopram Hydrobromide (celeXA) 40 mg BEDTIME ORAL 10/17/17 21:00 11/16/17 20:59 10/18/17 21:09 Dextrose (Dextrose 50%) 25 ml STAT PRN IV Hypoglycemia 10/17/17 14:15 11/16/17 14:14 Dextrose (Dextrose 50%) 50 ml STAT PRN IV Hypoglycemia 10/17/17 14:15 11/16/17 14:14 Enalapril Maleate (Vasotec) 10 mg DAILY ORAL 10/18/17 09:00 11/17/17 08:59 10/18/17 10:32 Heparin Sodium (Porcine) (Heparin 5000 units/ml) 5,000 units EVERY 12 HOURS SUBQ 10/17/17 21:00 11/16/17 20:59 10/19/17 11:01 Insulin Aspart (NovoLOG) BEFORE MEALS AND HS SUBQ 10/17/17 16:30 11/16/17 16:29 10/18/17 21:13 Lorazepam (Ativan 2mg/ml 1ml) 1 mg Q8H PRN IV AGITATION 10/18/17 20:53 10/25/17 20:52 Olanzapine (ZyPREXA) 5 mg BEDTIME ORAL 10/17/17 21:00 11/16/17 20:59 10/18/17 21:09 Sodium Chloride 1,000 ml @ 60 mls/hr [id number] IV 10/17/17 14:45 11/16/17 14:44 10/18/17 23:26 Tramadol HCl (Ultram) 50 mg Q8H PRN ORAL For Pain 10/17/17 14:15 10/24/17 14:14 Frida Billings M.D. Oct 19, 2017 14:17
[2017-10-19 16:00] VITALS: BP 133/53
--- NOTE | 2017-10-19 17:45 | Consultation ---
DATE OF CONSULTATION: 10/18/2017 INFECTIOUS DISEASE CONSULTATION CONSULTING PHYSICIAN: Frida Billings M.D. REQUESTING PHYSICIAN: Suad Loving M.D. REASON FOR CONSULTATION: Urinary tract infection and history of ESBL. Recommendation for antibiotics treatment for possible sepsis too. HISTORY OF PRESENT ILLNESS: The patient is an 86-year-old [place] man with past medical history of Alzheimer dementia, coronary artery disease, diabetes, hypertension, depression, history of urinary tract infection in the past due to MSSA, E. faecalis, sensitive, and ESBL was brought in to [facility] emergency room for confusion and falling from his assisted living. The patient has been confused for almost two to three days before presentation. He was treated with oral antibiotics unknown which one for his urinary tract infection. So, he was sent to the hospital for evaluation. In the ER, the patient had urinalysis that was consistent with urinary tract infection. Chest x-ray showed bibasilar lung atelectases with tiny pleural effusion. The patient was started on clindamycin to cover for his urinary tract infection and possible pneumonia. An Infectious Disease consultation was requested for further evaluation and management of his urinary tract infection and possible pneumonia since he had history of ESBL. The patient had a CT scan of the spine that showed evidence of compression fracture of L5 vertebral body involving the anterior midportion of the vertebral body. So, he was also admitted for evaluation of his spine fracture. PAST MEDICAL HISTORY: Significant for hypertension, diabetes, Alzheimer disease, dementia, coronary artery disease, and depression. PAST SURGICAL HISTORY: Significant for suprapubic catheter placement. MEDICATIONS: The patient is on clindamycin for his urinary tract infection and possible pneumonia. For the rest of his medications, please refer to MAR. ALLERGIES: He is allergic to azithromycin. SOCIAL HISTORY: The patient lives in the assisted living. No recent drugs, tobacco, or alcohol. FAMILY HISTORY: Unable to obtain. REVIEW OF SYSTEMS: A 14-point of system reviewed were all negative apart from the one I mentioned above in my History and Physical. PHYSICAL EXAMINATION: VITAL SIGNS: Temperature 98.2, pulse 66, respirations 22, blood pressure 154/64, and saturation 94% on room air. GENERAL: An elderly male, lying in bed, demented, awake, alert, responsive, and not in acute distress. HEENT: Normocephalic and atraumatic. Pupils reactive to light. Moist oral mucosa. No exudate or thrush. NECK: Supple. No lymphadenopathy. CARDIOVASCULAR: Regular rate and rhythm. No murmur. No gallop. LUNGS: Clear bilaterally. No wheezing. No rhonchi. Diminished breathing sounds at the bases with some crackles. Normal breathing effort. ABDOMEN: Soft, obese, nontender, and nondistended. Normal bowel sounds. No hepatosplenomegaly. No ascites. Suprapubic catheter in place. EXTREMITIES: No edema or cyanosis. SKIN: No rash. He has bruises on his back. LABORATORY DATA: Labs showed white count of 8.1, hemoglobin of 10, and platelet count of 228,000. BUN of 27 and creatinine of 1.8. Urinalysis showed positive for nitrite, +3 leukocyte esterase, wbc 15 to 20, and few bacteria. MICROBIOLOGY: Urine culture pending. IMAGING: Spine CT showed subtle nondisplaced right posterior rib 11 fracture, transverse process of bilateral L3 acute fracture, compression fracture of the L5 vertebral body involving the anterior midportion of the vertebral body about 50% loss of height, new since prior study, a grade 1 anterolisthesis of L4 on L5 and grade 1 retrolisthesis of L5-S1, grade 1 retrolisthesis of L3 on L4, degenerative change multiple level and disc space narrowing. Pelvic CT, no acute fracture or dislocation of the pelvis or hip, compression fracture of L5 vertebral bodies, age indeterminate, new since prior study. Chest x-ray showed cardiomegaly, hypoventilatory lungs, bibasilar lung atelectases, and tiny left pleural effusion. Femur x-ray showed no fracture or malalignment. [id number] degenerative change of the knee. ASSESSMENT AND RECOMMENDATION: 1. Urinary tract infection. We will stop clindamycin and start him on ceftriaxone and vancomycin empirically since he had history of the Enterococcus faecalis and methicillin-sensitive Staphylococcus aureus urinary tract infection. 2. Possible sepsis. We will send blood culture and start vancomycin with ceftriaxone empirically. 3. Dehydration. Continue intravenous fluid for hydration. Monitor electrolytes. 4. Acute kidney and failure due to dehydration. Continue intravenous fluids. Avoid nephrotoxics. Monitor renal function. Thank you for the consultation. ID will continue to follow. Frida Billings M.D. DR: CAROLYN JOB#: [id number] CC:
[2017-10-19] MEDS: cefTRIAXone 1 GM in D5W 110 ML IVPB SCH (18:06)
[2017-10-19 20:00] VITALS: BP 129/54
[2017-10-19] MEDS ORDERED: Vancomycin 500mg/D5W 110ml IVPB SCH ×2 (20:00)
[2017-10-19] MEDS: Citalopram Hydrobromide 10mg Tab ORAL SCH (22:28)
[2017-10-20] VITALS: BP 132/59
[2017-10-20 04:00] VITALS: BP 127/62
[2017-10-20] MEDS: NovoLOG Insulin Flexpen SUBQ SCH ×4 (06:30→20:36)
[2017-10-20 07:57] LABS: HEMATOCRIT 29.9 % (42.0-52.0); HEMOGLOBIN 9.2 G/DL (14.2-18.0); LYMPHOCYTES % (AUTO) 26.8 % (20.0-45.0); MEAN CORPUSCULAR VOLUME 73 FL (80-99); MONOCYTES % (AUTO) 6.7 % (1.0-10.0); NEUTROPHILS % (AUTO) 59.4 % (45.0-75.0); PLATELET COUNT 191 K/UL (150-450); RED BLOOD COUNT 4.11 M/UL (4.70-6.10); RED CELL DISTRIBUTION WIDTH 12.6 % (11.6-14.8); WHITE BLOOD COUNT 5.6 K/UL (4.8-10.8)
[2017-10-20 08:00] VITALS: BP 148/63
[2017-10-20 08:23] LABS: ANION GAP 8 mmol/L (5-15); BLOOD UREA NITROGEN 29 mg/dL (7-18); CALCIUM 8.2 MG/DL (8.5-10.1); CARBON DIOXIDE 23 MMOL/L (21-32); CHLORIDE 109 MMOL/L (98-107); CREATININE 1.5 MG/DL (0.55-1.30); POTASSIUM 4.7 MMOL/L (3.5-5.1); SODIUM 140 MMOL/L (136-145)
[2017-10-20] MEDS: Aspirin EC 81mg tab ORAL SCH (08:33)
[2017-10-20] MEDS: Heparin 5000 units/ml inj SUBQ SCH ×2 (08:37→20:41)
--- NOTE | 2017-10-20 09:17 | General Progress Note ---
Assessment/Plan Status: stable Assessment/Plan 1. UTI 2nd to Entrococcus - on Rocephin. May need to switch to Vanco today and f /u at outpatient in rehab with ampicilin . will await ID recommendation. D/C planning to SNF tomorrow. 2. Questionable Sepsis - blood cx's negative so far. 3. mininal pleural effusion 4. L5 Compression fracture - spine surgens not available. may need to have patient f/u as outpatient. will have physical therapy evaluate the patient. 3. Large left inguinal hernia - reducable. 4. HTN - cont home meds. controlled. 5. Dementia 6. Nondisplaced right posterior 11th rib fracture - cont pain management. PT/ OT eval and txt. 7. Transverse process of bilateral L3 acute fracture s/p fall 8. Depression - on celexa. Subjective Date patient seen: Oct 20, 2017 Time patient seen: 08:35 Constitutional: Reports: weakness HEENT: Reports: no symptoms Cardiovascular: Reports: no symptoms Respiratory: Reports: no symptoms Gastrointestinal/Abdominal: Reports: no symptoms Genitourinary: Reports: no symptoms Neurologic/Psychiatric: Reports: no symptoms Endocrine: Reports: no symptoms Hematologic/Lymphatic: Reports: no symptoms Allergies: Coded Allergies: No Known Allergies (Unverified , 11/26/14) Subjective He is doing better today. He ate all of his food and doing better now. Afebrile. No nausea or vomiting. No sob or chest pain. Objective Last 24 Hour Vital Signs Date Time Temp Pulse Resp B/P (MAP) Pulse Ox O2 Delivery O2 Flow Rate FiO2 10/20/17 08:32 148/63 10/20/17 08:32 66 148/63 10/20/17 04:00 97.5 56 20 127/62 100 Room Air 97.5 10/20/17 00:00 97.5 55 18 132/59 100 Room Air 97.5 10/19/17 20:00 97.2 58 18 129/54 96 Room Air 97.2 10/19/17 16:00 98.3 60 18 133/53 94 Room Air 98.3 10/19/17 12:00 98.2 56 18 119/55 96 Room Air 98.2 Intake and Output 10/19/17 10/20/17 19:00 07:00 Intake Total 990 ml 1500 ml Output Total 850 ml 600 ml Balance 140 ml 900 ml Intake Oral 700 ml 720 ml IV Total 290 ml 780 ml Output Urine Total 850 ml 600 ml Laboratory Tests 10/20/17 07:30: White Blood Count 5.6, Red Blood Count 4.11L, Hemoglobin 9.2L, Hematocrit 29.9L , Mean Corpuscular Volume 73L, Mean Corpuscular Hemoglobin 22.4L, Mean Corpuscular Hemoglobin Concent 30.8L, Red Cell Distribution Width 12.6, Platelet Count 191, Mean Platelet Volume 6.1L, Neutrophils (%) (Auto) 59.4, Lymphocytes (%) (Auto) 26.8, Monocytes (%) (Auto) 6.7, Eosinophils (%) (Auto) 6.0H, Basophils (%) (Auto) 1.0, Sodium Level 140, Potassium Level 4.7, Chloride Level 109H, Carbon Dioxide Level 23, Anion Gap 8, Blood Urea Nitrogen 29H, Creatinine 1.5H, Estimat Glomerular Filtration Rate , Glucose Level 95, Calcium Level 8.2L Height (Feet): 5 Height (Inches): 8.00 Weight (Pounds): 151 General Appearance: no apparent distress, alert Neck: non-tender, normal alignment, supple Cardiovascular: normal peripheral pulses, normal rate, regular rhythm Respiratory/Chest: chest wall non-tender, lungs clear, normal breath sounds Abdomen: normal bowel sounds, non tender, soft, no organomegaly Extremities: normal range of motion, non-tender Edema: no edema noted Arm (L), no edema noted Arm (R), no edema noted Leg (L), no edema noted Leg (R), no edema noted Pedal (L), no edema noted Pedal (R), no edema noted Generalized Neurologic: no motor/sensory deficits, alert, oriented x 3, responsive Skin: warm/dry Lymphatic: normal anterior cervical (L), normal anterior cervical (R), normal posterior cervical (L), normal posterior cervical (R), normal submandibular (L) , normal submandibular (R), normal supraclavicular (L), normal supraclavicular ( R), normal axillary (L), normal axillary (R), normal inguinal (L), normal inguinal (R), normal other Suad Loving MD Oct 20, 2017 09:17
[2017-10-20 12:00] VITALS: BP 155/61
--- NOTE | 2017-10-20 14:17 | Infectious Diseases Prog Note ---
Assessment/Plan Problems: (1) Catheter-associated urinary tract infection Assessment & Plan: due to enterococcus faecalis as per the updated report today by micro , so will switch ceftriaxon to vancomycin and treat him for 10 days total (2) ARF (acute renal failure) Assessment & Plan: due to dehydration, continue IVF, and monitor renal function . (3) Encephalopathy acute Assessment & Plan: suspect due to UTI and dehydration, improving, monitor neuro status Subjective Constitutional: Reports: no symptoms HEENT: Reports: no symptoms Respiratory: Reports: no symptoms Breasts: Reports: no symptoms Cardiovascular: Reports: no symptoms Gastrointestinal/Abdominal: Reports: no symptoms Genitourinary: Reports: no symptoms Neurologic: Reports: weakness, confusion Psychiatric: Reports: no symptoms Skin: Reports: no symptoms Endocrine: Reports: no symptoms Hematologic: Reports: no symptoms Musculoskeletal: Reports: no symptoms Allergies: Coded Allergies: No Known Allergies (Unverified , 11/26/14) Subjective he was awake, and interactive, complained of back pain Objective Vital Signs Last 24 Hour Vital Signs Date Time Temp Pulse Resp B/P (MAP) Pulse Ox O2 Delivery O2 Flow Rate FiO2 10/20/17 12:00 97.3 64 20 155/61 94 Room Air 97.3 10/20/17 08:32 148/63 10/20/17 08:32 66 148/63 10/20/17 08:00 97.3 66 20 148/63 100 Room Air 97.3 10/20/17 04:00 97.5 56 20 127/62 100 Room Air 97.5 10/20/17 00:00 97.5 55 18 132/59 100 Room Air 97.5 10/19/17 20:00 97.2 58 18 129/54 96 Room Air 97.2 10/19/17 16:00 98.3 60 18 133/53 94 Room Air 98.3 Height (Feet): 5 Height (Inches): 8.00 Weight (Pounds): 151 General Appearance: WD/WN, no acute distress HEENT: normocephalic, atraumatic, anicteric, mucous membranes moist, PERRL Respiratory/Chest: chest wall non-tender, lungs clear, normal breath sounds, no respiratory distress, no accessory muscle use Cardiovascular: normal peripheral pulses, normal rate, regular rhythm, no gallop/murmur, no JVD Abdomen: normal bowel sounds, soft, non tender, no organomegaly, non distended , no mass, no scars Extremities: no cyanosis, no clubbing Skin: no rash, no lesions, no ulcers Neurologic/Psychiatric: alert, responsive Lymphatic: no neck adenopathy Microbiology Date/Time Source Procedure Growth Status 10/18/17 20:00 Blood Blood Culture - Preliminary NO GROWTH AFTER 24 HOURS Resulted 10/18/17 19:50 Blood Blood Culture - Preliminary NO GROWTH AFTER 24 HOURS Resulted Laboratory Tests Test 10/20/17 07:30 White Blood Count 5.6 K/UL (4.8-10.8) Red Blood Count 4.11 M/UL (4.70-6.10) L Hemoglobin 9.2 G/DL (14.2-18.0) L Hematocrit 29.9 % (42.0-52.0) L Mean Corpuscular Volume 73 FL (80-99) L Mean Corpuscular Hemoglobin 22.4 PG (27.0-31.0) L Mean Corpuscular Hemoglobin Concent 30.8 G/DL (32.0-36.0) L Red Cell Distribution Width 12.6 % (11.6-14.8) Platelet Count 191 K/UL (150-450) Mean Platelet Volume 6.1 FL (6.5-10.1) L Neutrophils (%) (Auto) 59.4 % (45.0-75.0) Lymphocytes (%) (Auto) 26.8 % (20.0-45.0) Monocytes (%) (Auto) 6.7 % (1.0-10.0) Eosinophils (%) (Auto) 6.0 % (0.0-3.0) H Basophils (%) (Auto) 1.0 % (0.0-2.0) Sodium Level 140 MMOL/L (136-145) Potassium Level 4.7 MMOL/L (3.5-5.1) Chloride Level 109 MMOL/L (98-107) H Carbon Dioxide Level 23 MMOL/L (21-32) Anion Gap 8 mmol/L (5-15) Blood Urea Nitrogen 29 mg/dL (7-18) H Creatinine 1.5 MG/DL (0.55-1.30) H Estimat Glomerular Filtration Rate mL/min (>60) Glucose Level 95 MG/DL (74-106) Calcium Level 8.2 MG/DL (8.5-10.1) L Current Medications Medications (Trade) Dose Ordered Sig/Charlene Route PRN Reason Start Time Stop Time Status Last Admin Dose Admin Amlodipine Besylate (Norvasc) 5 mg DAILY ORAL 10/18/17 09:00 11/17/17 08:59 10/20/17 08:32 Aspirin (Ecotrin) 81 mg DAILY ORAL 10/18/17 09:00 11/17/17 08:59 10/20/17 08:33 Bisacodyl (Dulcolax) 10 mg DAILYPRN PRN RECTAL Constipation 10/17/17 14:15 11/16/17 14:14 Citalopram Hydrobromide (celeXA) 40 mg BEDTIME ORAL 10/17/17 21:00 11/16/17 20:59 10/19/17 22:28 Dextrose (Dextrose 50%) 25 ml STAT PRN IV Hypoglycemia 10/17/17 14:15 11/16/17 14:14 Dextrose (Dextrose 50%) 50 ml STAT PRN IV Hypoglycemia 10/17/17 14:15 11/16/17 14:14 Enalapril Maleate (Vasotec) 10 mg DAILY ORAL 10/18/17 09:00 11/17/17 08:59 10/20/17 08:32 Heparin Sodium (Porcine) (Heparin 5000 units/ml) 5,000 units EVERY 12 HOURS SUBQ 10/17/17 21:00 11/16/17 20:59 10/20/17 08:37 Insulin Aspart (NovoLOG) BEFORE MEALS AND HS SUBQ 10/17/17 16:30 11/16/17 16:29 10/20/17 11:58 Olanzapine (ZyPREXA) 2.5 mg BEDTIME ORAL 10/20/17 21:00 11/16/17 20:59 Sodium Chloride 1,000 ml @ 60 mls/hr [id number] IV 10/17/17 14:45 11/16/17 14:44 10/20/17 08:33 Tramadol HCl (Ultram) 50 mg Q8H PRN ORAL For Pain 10/17/17 14:15 10/24/17 14:14 Vancomycin HCl (Vanco rx to dose) 1 ea DAILY PRN MISC Per rx protocol 10/20/17 13:45 11/19/17 13:44 Vancomycin HCl/ Dextrose 250 ml @ 166.667 mls/hr ONCE ONCE IVPB 10/20/17 15:00 10/20/17 16:29 Vancomycin/Sodium Chloride 250 ml @ 166.667 mls/hr Q24H IVPB 10/21/17 15:00 10/26/17 14:59 Frida Billings M.D. Oct 20, 2017 14:17
[2017-10-20] MEDS ORDERED: Vancomycin 1250mg/D5W 250ml IVPB ONE (15:00)
[2017-10-20 16:30] VITALS: BP 156/61
[2017-10-20] MEDS: Citalopram Hydrobromide 10mg Tab ORAL SCH (20:41)
[2017-10-20 20:59] VITALS: BP 128/54
[2017-10-21 00:25] VITALS: BP 131/62
[2017-10-21 04:57] VITALS: BP 134/63
[2017-10-21] MEDS: NovoLOG Insulin Flexpen SUBQ SCH ×2 (06:03→12:18)
[2017-10-21 06:48] LABS: BASOPHILS % (AUTO) 1.4 % (0.0-2.0); EOSINOPHILS % (AUTO) 3.9 % (0.0-3.0); HEMATOCRIT 32.4 % (42.0-52.0); HEMOGLOBIN 10.1 G/DL (14.2-18.0); LYMPHOCYTES % (AUTO) 28.6 % (20.0-45.0); MEAN CORPUSCULAR VOLUME 73 FL (80-99); MONOCYTES % (AUTO) 6.5 % (1.0-10.0); NEUTROPHILS % (AUTO) 59.6 % (45.0-75.0); PLATELET COUNT 215 K/UL (150-450); RED BLOOD COUNT 4.44 M/UL (4.70-6.10); RED CELL DISTRIBUTION WIDTH 12.8 % (11.6-14.8); WHITE BLOOD COUNT 5.8 K/UL (4.8-10.8)
[2017-10-21 07:21] LABS: ANION GAP 9 mmol/L (5-15); BLOOD UREA NITROGEN 22 mg/dL (7-18); CALCIUM 8.8 MG/DL (8.5-10.1); CARBON DIOXIDE 25 MMOL/L (21-32); CHLORIDE 109 MMOL/L (98-107); CREATININE 1.3 MG/DL (0.55-1.30); POTASSIUM 4.7 MMOL/L (3.5-5.1); SODIUM 143 MMOL/L (136-145)
[2017-10-21 08:00] VITALS: BP 163/75
[2017-10-21] MEDS: Heparin 5000 units/ml inj SUBQ SCH (09:00)
--- NOTE | 2017-10-21 09:11 | General Progress Note ---
Assessment/Plan Status: stable Assessment/Plan 1. UTI 2nd to Entrococcus - Cont Vanco IV daily for total of 10 days per ID. D/ C to [facility] today. 2. Questionable Sepsis - blood cx's negative. 3. mininal pleural effusion 4. L5 Compression fracture - spine surgens not available. Will f/u as outpatient with spine surgen. cont physical therapy in Rehab. 3. Large left inguinal hernia - reducable. 4. HTN - cont home meds. controlled. 5. Dementia 6. Nondisplaced right posterior 11th rib fracture - no pain per patient. PT/OT eval and txt done. 7. Transverse process of bilateral L3 acute fracture s/p fall 8. Depression - on celexa. 9. Acute kidney injury 2nd to dehydration and UTI - improved. Subjective Date patient seen: Oct 21, 2017 Time patient seen: 09:00 Constitutional: Reports: weakness HEENT: Reports: no symptoms Cardiovascular: Reports: no symptoms Respiratory: Reports: no symptoms Gastrointestinal/Abdominal: Reports: no symptoms Genitourinary: Reports: no symptoms Neurologic/Psychiatric: Reports: no symptoms Endocrine: Reports: no symptoms Hematologic/Lymphatic: Reports: no symptoms Allergies: Coded Allergies: No Known Allergies (Unverified , 11/26/14) Subjective He is doing better today. He ate all of his food and he walked with physical therapist yesterday. Afebrile. No nausea or vomiting. No sob or chest pain. Objective Last 24 Hour Vital Signs Date Time Temp Pulse Resp B/P (MAP) Pulse Ox O2 Delivery O2 Flow Rate FiO2 10/21/17 04:57 98.0 66 19 134/63 95 98.0 10/21/17 00:25 97.9 66 19 131/62 96 97.9 10/20/17 20:59 97.6 61 18 128/54 96 97.6 10/20/17 16:30 97.7 55 20 156/61 97 Room Air 97.7 10/20/17 12:00 97.3 64 20 155/61 94 Room Air 97.3 Intake and Output 10/20/17 10/21/17 19:00 07:00 Intake Total 1080 ml 900 ml Output Total 600 ml Balance 480 ml 900 ml Intake Oral 360 ml 360 ml IV Total 720 ml 540 ml Output Urine Total 600 ml # Voids 3 # Bowel Movements 1 Laboratory Tests 10/21/17 05:50: White Blood Count 5.8, Red Blood Count 4.44L, Hemoglobin 10.1L, Hematocrit 32.4L , Mean Corpuscular Volume 73L, Mean Corpuscular Hemoglobin 22.7L, Mean Corpuscular Hemoglobin Concent 31.2L, Red Cell Distribution Width 12.8, Platelet Count 215, Mean Platelet Volume 6.0L, Neutrophils (%) (Auto) 59.6, Lymphocytes (%) (Auto) 28.6, Monocytes (%) (Auto) 6.5, Eosinophils (%) (Auto) 3.9H, Basophils (%) (Auto) 1.4, Sodium Level 143, Potassium Level 4.7, Chloride Level 109H, Carbon Dioxide Level 25, Anion Gap 9, Blood Urea Nitrogen 22H, Creatinine 1.3, Estimat Glomerular Filtration Rate , Glucose Level 96, Calcium Level 8.8 Height (Feet): 5 Height (Inches): 8.00 Weight (Pounds): 151 General Appearance: no apparent distress, alert EENT: normal ENT inspection, TMs normal Neck: non-tender, normal alignment, supple Cardiovascular: normal peripheral pulses, normal rate, regular rhythm Respiratory/Chest: lungs clear, normal breath sounds, no respiratory distress Abdomen: normal bowel sounds, non tender, soft, no organomegaly Extremities: normal range of motion, non-tender Edema: no edema noted Arm (L), no edema noted Arm (R), no edema noted Leg (L), no edema noted Leg (R), no edema noted Pedal (L), no edema noted Pedal (R), no edema noted Generalized Neurologic: alert, oriented x 3, responsive Skin: warm/dry Lymphatic: normal anterior cervical (L), normal anterior cervical (R), normal posterior cervical (L), normal posterior cervical (R), normal submandibular (L) , normal submandibular (R), normal supraclavicular (L), normal supraclavicular ( R), normal axillary (L), normal axillary (R), normal inguinal (L), normal inguinal (R), normal other Suad Loving MD Oct 21, 2017 09:11
[2017-10-21] MEDS ORDERED: ENALAPRIL MALEA10 MG ORAL (09:18)
[2017-10-21] MEDS ORDERED: Vanco pharmacy to dose MISC (09:18)
[2017-10-21] MEDS: Aspirin EC 81mg tab ORAL SCH (09:36)
[2017-10-21 12:00] VITALS: BP 124/60
--- NOTE | 2017-10-21 14:17 | Infectious Diseases Prog Note ---
Assessment/Plan Problems: (1) Catheter-associated urinary tract infection Assessment & Plan: due to enterococcus faecalis and staph aureus as per the updated report today by micro , so will switch ceftriaxone to vancomycin and treat him for 7 more days (2) ARF (acute renal failure) Assessment & Plan: due to dehydration, continue IVF, and monitor renal function . (3) Encephalopathy acute Assessment & Plan: suspect due to UTI and dehydration, improving, monitor neuro status Subjective Constitutional: Reports: no symptoms HEENT: Reports: no symptoms Respiratory: Reports: no symptoms Breasts: Reports: no symptoms Cardiovascular: Reports: no symptoms Gastrointestinal/Abdominal: Reports: no symptoms Genitourinary: Reports: no symptoms Neurologic: Reports: no symptoms Psychiatric: Reports: no symptoms Skin: Reports: no symptoms Endocrine: Reports: no symptoms Hematologic: Reports: no symptoms Allergies: Coded Allergies: No Known Allergies (Unverified , 11/26/14) Subjective he was awake, and interactive, has mild back pain , no fever or chills, no nausea or vomiting , tolerated antibiotics well Objective Vital Signs Last 24 Hour Vital Signs Date Time Temp Pulse Resp B/P (MAP) Pulse Ox O2 Delivery O2 Flow Rate FiO2 10/21/17 12:00 98.2 60 18 124/60 98 Room Air 98.2 10/21/17 09:37 163/75 10/21/17 09:37 61 163/75 10/21/17 08:00 98.0 61 20 163/75 97 98.0 10/21/17 04:57 98.0 66 19 134/63 95 98.0 10/21/17 00:25 97.9 66 19 131/62 96 97.9 10/20/17 20:59 97.6 61 18 128/54 96 97.6 10/20/17 16:30 97.7 55 20 156/61 97 Room Air 97.7 Height (Feet): 5 Height (Inches): 8.00 Weight (Pounds): 151 General Appearance: WD/WN, no acute distress HEENT: normocephalic, atraumatic, anicteric, mucous membranes moist, PERRL Respiratory/Chest: chest wall non-tender, lungs clear, normal breath sounds, no respiratory distress, no accessory muscle use Cardiovascular: normal peripheral pulses, normal rate, regular rhythm, no gallop/murmur, no JVD Abdomen: normal bowel sounds, soft, non tender, no organomegaly, non distended , no mass, no scars Extremities: no cyanosis, no clubbing Skin: no rash, no lesions, no ulcers Neurologic/Psychiatric: alert, oriented x 3, responsive Microbiology Date/Time Source Procedure Growth Status 10/18/17 20:00 Blood Blood Culture - Preliminary NO GROWTH AFTER 48 HOURS Resulted 10/18/17 19:50 Blood Blood Culture - Preliminary NO GROWTH AFTER 48 HOURS Resulted Laboratory Tests Test 10/21/17 05:50 White Blood Count 5.8 K/UL (4.8-10.8) Red Blood Count 4.44 M/UL (4.70-6.10) L Hemoglobin 10.1 G/DL (14.2-18.0) L Hematocrit 32.4 % (42.0-52.0) L Mean Corpuscular Volume 73 FL (80-99) L Mean Corpuscular Hemoglobin 22.7 PG (27.0-31.0) L Mean Corpuscular Hemoglobin Concent 31.2 G/DL (32.0-36.0) L Red Cell Distribution Width 12.8 % (11.6-14.8) Platelet Count 215 K/UL (150-450) Mean Platelet Volume 6.0 FL (6.5-10.1) L Neutrophils (%) (Auto) 59.6 % (45.0-75.0) Lymphocytes (%) (Auto) 28.6 % (20.0-45.0) Monocytes (%) (Auto) 6.5 % (1.0-10.0) Eosinophils (%) (Auto) 3.9 % (0.0-3.0) H Basophils (%) (Auto) 1.4 % (0.0-2.0) Sodium Level 143 MMOL/L (136-145) Potassium Level 4.7 MMOL/L (3.5-5.1) Chloride Level 109 MMOL/L (98-107) H Carbon Dioxide Level 25 MMOL/L (21-32) Anion Gap 9 mmol/L (5-15) Blood Urea Nitrogen 22 mg/dL (7-18) H Creatinine 1.3 MG/DL (0.55-1.30) Estimat Glomerular Filtration Rate mL/min (>60) Glucose Level 96 MG/DL (74-106) Calcium Level 8.8 MG/DL (8.5-10.1) Current Medications Medications (Trade) Dose Ordered Sig/Charlene Route PRN Reason Start Time Stop Time Status Last Admin Dose Admin Amlodipine Besylate (Norvasc) 5 mg DAILY ORAL 10/18/17 09:00 11/17/17 08:59 10/21/17 09:37 Aspirin (Ecotrin) 81 mg DAILY ORAL 10/18/17 09:00 11/17/17 08:59 10/21/17 09:36 Bisacodyl (Dulcolax) 10 mg DAILYPRN PRN RECTAL Constipation 10/17/17 14:15 11/16/17 14:14 Citalopram Hydrobromide (celeXA) 40 mg BEDTIME ORAL 10/17/17 21:00 11/16/17 20:59 10/20/17 20:41 Dextrose (Dextrose 50%) 25 ml STAT PRN IV Hypoglycemia 10/17/17 14:15 11/16/17 14:14 Dextrose (Dextrose 50%) 50 ml STAT PRN IV Hypoglycemia 10/17/17 14:15 11/16/17 14:14 Enalapril Maleate (Vasotec) 10 mg DAILY ORAL 10/18/17 09:00 11/17/17 08:59 10/21/17 09:37 Heparin Sodium (Porcine) (Heparin 5000 units/ml) 5,000 units EVERY 12 HOURS SUBQ 10/17/17 21:00 11/16/17 20:59 10/20/17 20:41 Insulin Aspart (NovoLOG) BEFORE MEALS AND HS SUBQ 10/17/17 16:30 11/16/17 16:29 10/21/17 12:18 Olanzapine (ZyPREXA) 2.5 mg BEDTIME ORAL 10/20/17 21:00 11/16/17 20:59 10/20/17 20:41 Tramadol HCl (Ultram) 50 mg Q8H PRN ORAL For Pain 10/17/17 14:15 10/24/17 14:14 Vancomycin HCl (Vanco rx to dose) 1 ea DAILY PRN MISC Per rx protocol 10/20/17 13:45 11/19/17 13:44 Vancomycin/Sodium Chloride 250 ml @ 166.667 mls/hr Q24H IVPB 10/21/17 15:00 10/26/17 14:59 Frida Billings M.D. Oct 21, 2017 14:17
[2017-10-21] MEDS ORDERED: Vancomycin 750mg/NS 250ml IVPB SCH (15:00)
[2017-10-21 16:00] VITALS: BP 139/64
--- NOTE | 2017-10-22 11:42 | Discharge Summary ---
Discharge Summary Discharge Summary _ DATE OF ADMISSION: 10/17/2017 DATE OF DISCHARGE: 10/21/2017 REASON FOR ADMISSION: 86 years old male with past medical history significant for hypertension, diabetes mellitus type 2, Alzheimer dementia, coronary artery disease, depression, resident of assisted living, was brought after fall. Patient was confused for the last 2 to 3 days and was treated for urinary tract infection. Patient was not responding to oral antibiotic . Due to poor response to oral antibiotic and fall, patient was brought to emergency department for further evaluation. In emergency department urinalysis revealed UTI. Patient showed evidence of acute kidney injury with BUN 35 and creatinine 2.3 , no leukocytosis . CT of the lumbar spine revealed subtle nondisplaced right posterior rib 11 fracture. Transverse process of bilateral L3 acute fracture. Compression fracture of the L5 vertebral body involving the anterior portion of the vertebral body with about 50% loss of height. Overall degenerative changes on multiply levels with disc space narrowing, most severe at L4-L5. CT of the pelvis revealed no acute fracture or dislocation of the pelvis or hips and confirmed compression fracture of L5. It also revealed large left inguinal hernia containing several loops of bowel without evidence of incarceration or obstruction. Moderate stool in the rectosigmoid colon with possible fecal impaction noted. X-ray of the right femur revealed no fracture or misalignment. It showed moderate to severe degenerative changes of the knee. Patient was admitted with diagnosis of possible sepsis, urinary tract infection ,dehydration ,hypertension ,diabetes mellitus ,coronary artery disease ,depression,dementia, L5 compression fracture. CONSULTANTS: ID specialist Dr. Billings surgery [facility] COURSE: Patient admitted to medical surgical floor. Patient started on empiric antibiotic. ID consult was requested. Patient was started on the IV fluids to correct dehydration. Urine culture revealed Enterococcus faecalis and MRSA. Antibiotic regimen optimized as per ID specialist recommendations, and to be continued upon discharge for duration of time as specified by ID specialist. Renal parameters and electrolytes were closely monitored. Electrolytes corrected as needed. Acute renal failure/acute kidney injury s was secondary to dehydration and UTI , and nearly resolved. Prior to discharge BUN 22, creatinine 1.3. Orthopedic surgeon seen and evaluated the patient. He recommended patient to be evaluated by spine surgeon . Bracing versus kyphoplasty should be considered. Unfortunately unable to arrange spine surgery evaluation while patient was in the hospital Per ortho surgeon, at this time patient was stable although requires spinal evaluation by orthopedic spine surgeon or neurosurgeon subspecialty. Long discussion with the patient's family was on done Patient will be seen by information systems security specialist as outpatient. Home medications were resumed. Blood sugar was managed with sliding scale of insulin. Blood pressure was managed with calcium channel poncho. Aspirin was resumed. DVT prophylaxis provided. Bowel regimen instituted. Celexa was continued. Pain management was addressed pain was controlled. Patient clinically stabilized and was ready for discharge to [facility] facility for PT/OT, IV antibiotics, pain management and continuation of care FINAL DIAGNOSES: Enterococci with MRSA and UTI Questionable sepsis Acute encephalopathy likely due to UTI and dehydration,- improving Dehydration Hypertension Diabetes mellitus type 2 Depression Dementia Coronary artery disease Acute kidney injury secondary to dehydration and UTI- nearly resolved L5 compression fracture Nondisplaced right posterior 11th rib fracture. Transverse process of bilateral L3 acute fracture, status post fall Large left inguinal hernia reducible DISCHARGE MEDICATIONS: See Medication Reconciliation list. DISCHARGE INSTRUCTIONS: Patient was discharged to [facility] facility. Complete antibiotic course as outlined by infectious disease specialist. Continue physical and occupational therapy for rehabilitation. Outpatient spine surgery evaluation for L5 compression fracture I have been assigned to dictate discharge summary for this account. I was not involved in the patient's management. Paige Rai NP Oct 22, 2017 11:42
== END 2017-10-21 16:00 | DRG 698 ==
LOC: EDBD 09:37 → EMR 10:00 → EDBEDREQ 10:22 → 4E 10:34 → EDBEDREQ 11:52 → 4E 10-19 20:35
DX: T83.511A Infection and inflammatory reaction due to indwelling urethral catheter, initial encounter (principal); A41.9 Sepsis, unspecified organism; G93.40 Encephalopathy, unspecified; S22.31XA Fracture of one rib, right side, initial encounter for closed fracture; S32.058A Other fracture of fifth lumbar vertebra, initial encounter for closed fracture; N17.9 Acute kidney failure, unspecified; N39.0 Urinary tract infection, site not specified; Y84.6 Urinary catheterization as the cause of abnormal reaction of the patient, or of later complication, without mention of misadventure at the time of the procedure; I10 Essential (primary) hypertension; E86.0 Dehydration; E11.9 Type 2 diabetes mellitus without complications; I25.10 Atherosclerotic heart disease of native coronary artery without angina pectoris; G30.9 Alzheimer's disease, unspecified; F02.80 Dementia in other diseases classified elsewhere, unspecified severity, without behavioral disturbance, psychotic disturbance, mood disturbance, and anxiety; B95.2 Enterococcus as the cause of diseases classified elsewhere; F32.9 Major depressive disorder, single episode, unspecified; W19.XXXA Unspecified fall, initial encounter; K40.90 Unilateral inguinal hernia, without obstruction or gangrene, not specified as recurrent; Z91.81 History of falling; Z88.1 Allergy status to other antibiotic agents; B95.61 Methicillin susceptible Staphylococcus aureus infection as the cause of diseases classified elsewhere
CPT/HCPCS: 36415; 71045; 72131; 72192; 80048; 80053; 81003; 82550; 82553; 82962; 83036; 84484; 85025; 87040; 87081; 87086; 87181; 93005; 99285; J1815; S0077

== ENCOUNTER 2018-04-02 16:20 | Inpatient (IN) | payer MEDICARE, MEDICAID ==
[~2018-04-02] VITALS: Ht 152.4 cm; Wt 62.6 kg
[~2018-04-02 16:20] MED LIST changes: +Vanco pharmacy to dose MISC
--- NOTE | 2018-04-02 16:26 | Emergency Room Report ---
History of Present Illness General Chief Complaint: Altered Mental Status Source: Medical Record Present Illness HPI Patient is an 87-year-old male who presented after increased altered mental status. The patient presented from [facility]. Patient was noted to have urinary tract infection and increased confusion. Patient is followed by . Allergies: Coded Allergies: No Known Allergies (Unverified , 11/26/14) Patient History Past Medical History: see triage record Reviewed Nursing Documentation: PMH: Agreed; PSxH: Agreed Nursing Documentation-PMH Past Medical History: No History, Except For Hx Cardiac Problems: Yes Hx Hypertension: Yes Hx Diabetes: Yes Hx Cancer: No Hx Gastrointestinal Problems: No History Of Psychiatric Problem: Yes - depression, anxiety Hx Neurological Problems: Yes - dementia Hx Dementia: Yes Review of Systems All Other Systems: negative except mentioned in HPI Physical Exam Vital Signs Date Time Temp Pulse Resp B/P (MAP) Pulse Ox O2 Delivery O2 Flow Rate FiO2 04/02/18 16:19 97.9 87 16 136/79 97 Nasal Cannula 4.0 Sp02 EP Interpretation: reviewed, normal General Appearance: normal inspection, alert, Chronically Ill Head: atraumatic ENT: normal ENT inspection, hearing grossly normal, normal voice Neck: normal inspection, no bony tend, limited range of motion Respiratory: normal inspection, lungs clear, normal breath sounds, no respiratory distress, no retraction, no wheezing Cardiovascular #1: regular rate, rhythm, no edema Gastrointestinal: normal bowel sounds, non tender, soft, no guarding, no hernia Genitourinary: no CVA tenderness Musculoskeletal: normal inspection, back normal, normal range of motion Neurologic: normal inspection, alert, responsive, motor weakness - general Psychiatric: depressed affect Skin: normal inspection, normal color, no rash Medical Decision Making Diagnostic Impression: Primary Impression: Encephalopathy acute Additional Impressions: Lactic acidosis Dehydration Acute on chronic renal insufficiency ER Course Patient presented for altered mental status. Differential diagnosis included but was not limited to ischemic stroke, subarachnoid hemorrhage, hypoglycemia, spinal cord injury, neurodegenerative disorder, urinary tract infection, hypoxemia. The patient was noted to have the prior history of urinary infection as chronic indwelling Patricio catheter. Urinalysis showed some evidence of hematuria with no definite infection. He was noted to have elevated BUN/creatinine compared to baseline. Patient was given IV fluids as well as IV antibiotics the patient's lactic acid level was noted to be somewhat improved. Dr. Sweeney was contacted for inpatient management due to primary care physician Labs Test 04/02/18 17:00 04/02/18 18:14 White Blood Count 5.7 K/UL (4.8-10.8) Red Blood Count 5.55 M/UL (4.70-6.10) Hemoglobin 12.4 G/DL (14.2-18.0) Hematocrit 39.2 % (42.0-52.0) Mean Corpuscular Volume 71 FL (80-99) Mean Corpuscular Hemoglobin 22.4 PG (27.0-31.0) Mean Corpuscular Hemoglobin Concent 31.7 G/DL (32.0-36.0) Red Cell Distribution Width 12.3 % (11.6-14.8) Platelet Count 187 K/UL (150-450) Mean Platelet Volume 6.4 FL (6.5-10.1) Neutrophils (%) (Auto) 73.0 % (45.0-75.0) Lymphocytes (%) (Auto) 21.0 % (20.0-45.0) Monocytes (%) (Auto) 4.1 % (1.0-10.0) Eosinophils (%) (Auto) 0.9 % (0.0-3.0) Basophils (%) (Auto) 1.0 % (0.0-2.0) Urine Color Pale yellow Urine Appearance Slightly cloudy Urine pH 6 (4.5-8.0) Urine Specific [place] 1.010 (1.005-1.035) Urine Protein 3+ (NEGATIVE) Urine Glucose (UA) Negative (NEGATIVE) Urine Ketones Negative (NEGATIVE) Urine Blood 4+ (NEGATIVE) Urine Nitrite Positive (NEGATIVE) Urine Bilirubin Negative (NEGATIVE) Urine Urobilinogen Normal MG/DL (0.0-1.0) Urine Leukocyte Esterase 3+ (NEGATIVE) Urine RBC 2-4 /HPF (0 - 0) Urine WBC 0-2 /HPF (0 - 0) Urine Squamous Epithelial Cells None /LPF (NONE/OCC) Urine Bacteria Few /HPF (NONE) Sodium Level 138 MMOL/L (136-145) Potassium Level 5.1 MMOL/L (3.5-5.1) Chloride Level 103 MMOL/L (98-107) Carbon Dioxide Level 25 MMOL/L (21-32) Anion Gap 10 mmol/L (5-15) Blood Urea Nitrogen 38 mg/dL (7-18) Creatinine 1.8 MG/DL (0.55-1.30) Estimat Glomerular Filtration Rate mL/min (>60) Glucose Level 171 MG/DL (74-106) Calcium Level 9.4 MG/DL (8.5-10.1) Total Bilirubin 0.4 MG/DL (0.2-1.0) Aspartate Amino Transf (AST/SGOT) 16 U/L (15-37) Alanine Aminotransferase (ALT/SGPT) 18 U/L (12-78) Alkaline Phosphatase 84 U/L (46-116) Total Creatine Kinase 95 U/L (26-308) Creatine Kinase MB 2.4 NG/ML (0.0-3.6) Creatine Kinase MB Relative Index 2.5 Troponin I 0.002 ng/mL (0.000-0.056) Total Protein 7.7 G/DL (6.4-8.2) Albumin 3.9 G/DL (3.4-5.0) Globulin 3.8 g/dL Albumin/Globulin Ratio 1.0 (1.0-2.7) Lactic Acid Level 1.60 mmol/L (0.66-2.22) EKG Diagnostic Results Rate: normal Rhythm: NSR ST Segments: no acute changes Last Vital Signs Date Time Temp Pulse Resp B/P (MAP) Pulse Ox O2 Delivery O2 Flow Rate FiO2 04/02/18 16:19 97.9 87 16 136/79 97 Nasal Cannula 4.0 Status: improved Disposition: ADMITTED INPATIENT Condition: Stable Link Carlson MD Apr 02, 2018 16:26
[2018-04-02] MEDS ORDERED: cefTRIAXone 1 GM in NS 55 ML IVPB ONE (16:30)
[2018-04-02 17:21] LABS: APPEARANCE,URINE SLIGHTLY CLOUDY; BILIRUBIN, URINE NEGATIVE (NEGATIVE); COLOR,URINE PALE YELLOW; GLUCOSE, URINE (UA) NEGATIVE (NEGATIVE); KETONES,URINE NEGATIVE (NEGATIVE); LEUKOCYTE ESTERASE ,URINE 3+ (NEGATIVE); NITRITE,URINE POSITIVE (NEGATIVE); PH,URINE 6 (4.5-8.0); PROTEIN,URINE 3+ (NEGATIVE); UROBILINOGEN,URINE NORMAL MG/DL (0.0-1.0)
[2018-04-02 17:29] LABS: EOSINOPHILS % (AUTO) 0.9 % (0.0-3.0); HEMATOCRIT 39.2 % (42.0-52.0); HEMOGLOBIN 12.4 G/DL (14.2-18.0); MEAN CORPUSCULAR VOLUME 71 FL (80-99); MONOCYTES % (AUTO) 4.1 % (1.0-10.0); PLATELET COUNT 187 K/UL (150-450); RED BLOOD COUNT 5.55 M/UL (4.70-6.10); RED CELL DISTRIBUTION WIDTH 12.3 % (11.6-14.8); WHITE BLOOD COUNT 5.7 K/UL (4.8-10.8)
[2018-04-02 17:32] VITALS: BP 132/71
[2018-04-02 17:36] LABS: ANION GAP 10 mmol/L (5-15); BLOOD UREA NITROGEN 38 mg/dL (7-18); CALCIUM 9.4 MG/DL (8.5-10.1); CARBON DIOXIDE 25 MMOL/L (21-32); CHLORIDE 103 MMOL/L (98-107); CREATININE 1.8 MG/DL (0.55-1.30); POTASSIUM 5.1 MMOL/L (3.5-5.1); SODIUM 138 MMOL/L (136-145)
--- NOTE | 2018-04-02 17:44 | Diagnostic Imaging Report ---
EXAM: XR Chest, 1 View CLINICAL HISTORY: Shortness of breath TECHNIQUE: Frontal view of the chest. COMPARISON: 10/17/2017 FINDINGS: Lungs: Hypoventilatory lungs. Nonspecific bibasilar opacities likely represent atelectasis. A superimposed infectious or inflammatory process is not excluded. Pleural space: Probable trace left effusion. No pneumothorax. Heart: Stable cardiomediastinal silhouette. Mediastinum: See above. Bones/joints: No acute osseous abnormality. Tubes, lines and devices: Telemetry leads overlie the patient. IMPRESSION: Stable hypoventilatory exam. Nonspecific bibasilar opacities likely represent atelectasis. A superimposed infectious or inflammatory process is not excluded. Probable trace left effusion.
[2018-04-02 17:49] LABS: ALANINE AMINOTRANSFERASE 18 U/L (12-78); ALBUMIN 3.9 G/DL (3.4-5.0); ALKALINE PHOSPHATASE 84 U/L (46-116); ASPARTATE AMINO TRANSFERASE 16 U/L (15-37); BILIRUBIN,TOTAL 0.4 MG/DL (0.2-1.0); CKMB 2.4 NG/ML (0.0-3.6); CREATINE KINASE 95 U/L (26-308)
[2018-04-02] MEDS ORDERED: VITAMIN D22000 UNIT PO (17:49)
[2018-04-02] MEDS ORDERED: ZYPREXA5 MG ORAL (17:49)
[2018-04-02] MEDS ORDERED: ENALAPRIL MALEA20 MG ORAL (17:49)
[2018-04-02] MEDS ORDERED: POLYETHYLENE GL17 GM ORAL (18:17)
--- NOTE | 2018-04-02 18:39 | Diagnostic Imaging Report ---
EXAM: CT Head Without Intravenous Contrast CLINICAL HISTORY: Altered mental status TECHNIQUE: Axial computed tomography images of the head/brain without intravenous contrast. CTDI is 0.15, 70.38 mGy and DLP is 1460 mGy-cm. One or more of the following dose reduction techniques were used: automated exposure control, adjustment of the mA and/or kV according to patient size, use of iterative reconstruction technique. COMPARISON: 04/22/2017 FINDINGS: Brain: No acute intracranial hemorrhage, loss of healy-white differentiation, or significant mass effect. Nonspecific areas of hypoattenuation in the periventricular white matter likely represent the sequela of chronic small vessel ischemic disease. Small area of encephalomalacia in the left frontal lobe. Ventricles: Ventricular and sulcal prominence commensurate with the patient's age. Bones/joints: Unremarkable. No acute fracture. Soft tissues: Unremarkable. Sinuses: Unremarkable as visualized. No acute sinusitis. Mastoid air cells: Unremarkable. IMPRESSION: No acute intracranial abnormality.
[2018-04-02 19:50] VITALS: BP 137/83
[2018-04-02 20:00] VITALS: BP 149/76
[2018-04-02] MEDS ORDERED: NovoLOG Insulin Flexpen SUBQ SCH (21:00)
[2018-04-02] MEDS: Heparin 5000 units/ml inj SUBQ SCH (21:35)
[2018-04-03] VITALS: BP 137/93
[2018-04-03 04:00] VITALS: BP 139/77
[2018-04-03] MEDS ORDERED: NovoLOG Insulin Flexpen SUBQ SCH (06:30)
[2018-04-03 07:23] LABS: ANION GAP 7 mmol/L (5-15); BASOPHILS % (AUTO) 1.1 % (0.0-2.0); BLOOD UREA NITROGEN 29 mg/dL (7-18); CALCIUM 8.9 MG/DL (8.5-10.1); CARBON DIOXIDE 28 MMOL/L (21-32); CHLORIDE 107 MMOL/L (98-107); CREATININE 1.4 MG/DL (0.55-1.30); EOSINOPHILS % (AUTO) 4.1 % (0.0-3.0); HEMATOCRIT 33.9 % (42.0-52.0); HEMOGLOBIN 10.4 G/DL (14.2-18.0); LYMPHOCYTES % (AUTO) 19.6 % (20.0-45.0); MEAN CORPUSCULAR VOLUME 72 FL (80-99); MONOCYTES % (AUTO) 5.9 % (1.0-10.0); NEUTROPHILS % (AUTO) 69.3 % (45.0-75.0); PLATELET COUNT 195 K/UL (150-450); POTASSIUM 4.4 MMOL/L (3.5-5.1); RED BLOOD COUNT 4.74 M/UL (4.70-6.10); RED CELL DISTRIBUTION WIDTH 12.4 % (11.6-14.8); SODIUM 142 MMOL/L (136-145); WHITE BLOOD COUNT 4.9 K/UL (4.8-10.8)
[2018-04-03 08:00] VITALS: BP 146/78
[2018-04-03] MEDS: Aspirin EC 81mg tab ORAL SCH (08:49)
[2018-04-03] MEDS: Heparin 5000 units/ml inj SUBQ SCH ×2 (08:50→20:17)
[2018-04-03] MEDS ORDERED: metFORMIN 500mg tab ORAL SCH ×2 (09:00)
--- NOTE | 2018-04-03 10:51 | General Progress Note ---
Assessment/Plan Status: stable Assessment/Plan 1. UTI with hx of chronic em cath - on Rocephin 1 gm IV daily. follow up urine cx. 2. HTN - cont Amlodipine 5 mg one po daily and vasotec 20 mg one po daily 3. DM II - on Metformin 500 mg one po bid 4. Depression - cont celexa 40 mg one daily 5. Dementia with hx of aggitation - cont zyprexa 5 mg one po qhs 6. Hx of CAD - on Plavix 75 mg daily. 7. Dehydration - cont IVF NS at 50 cc/HR Subjective Date patient seen: Apr 03, 2018 Time patient seen: 10:30 Constitutional: Reports: weakness HEENT: Reports: no symptoms Cardiovascular: Reports: no symptoms Respiratory: Reports: no symptoms Gastrointestinal/Abdominal: Reports: no symptoms Genitourinary: Reports: no symptoms Neurologic/Psychiatric: Reports: no symptoms Endocrine: Reports: no symptoms Hematologic/Lymphatic: Reports: no symptoms Allergies: Coded Allergies: No Known Allergies (Unverified , 11/26/14) Subjective patient is lying in bed. no sob or chest pain. no fever or chills. no nausea or vomiting. He is slightly better than yesterday. Objective Last 24 Hour Vital Signs Date Time Temp Pulse Resp B/P (MAP) Pulse Ox O2 Delivery O2 Flow Rate FiO2 04/03/18 09:00 Room Air 04/03/18 08:51 70 146/78 04/03/18 08:50 146/78 04/03/18 08:00 97.2 70 19 146/78 (100) 95 04/03/18 04:00 98.0 72 19 139/77 (97) 95 04/03/18 00:00 97.2 64 18 137/93 (108) 93 04/02/18 21:00 Room Air 04/02/18 20:29 Room Air 04/02/18 20:00 97.0 72 19 149/76 (100) 93 04/02/18 19:50 98.5 84 22 137/83 96 Room Air 04/02/18 19:50 98.5 84 22 137/83 96 Room Air 04/02/18 17:32 73 18 Room Air 04/02/18 17:32 97.7 83 18 132/71 96 Room Air 04/02/18 16:19 97.9 87 16 136/79 97 Nasal Cannula 4.0 Intake and Output 04/02/18 04/03/18 19:00 07:00 Intake Total 1055 ml 450 ml Output Total 30 ml 1800 ml Balance 1025 ml -1350 ml IV Total 1055 ml 450 ml Output Urine Total 30 ml 1800 ml # Bowel Movements 1 Laboratory Tests 04/02/18 17:00: White Blood Count 5.7, Red Blood Count 5.55, Hemoglobin 12.4L, Hematocrit 39.2L , Mean Corpuscular Volume 71L, Mean Corpuscular Hemoglobin 22.4L, Mean Corpuscular Hemoglobin Concent 31.7L, Red Cell Distribution Width 12.3, Platelet Count 187, Mean Platelet Volume 6.4L, Neutrophils (%) (Auto) 73.0, Lymphocytes (%) (Auto) 21.0, Monocytes (%) (Auto) 4.1, Eosinophils (%) (Auto) 0.9, Basophils (%) (Auto) 1.0, Urine Color Pale yellow, Urine Appearance Slightly cloudy, Urine pH 6, Urine Specific [place] 1.010, Urine Protein 3+H, Urine Glucose (UA) Negative, Urine Ketones Negative, Urine Blood 4+H, Urine Nitrite PositiveH, Urine Bilirubin Negative, Urine Urobilinogen Normal, Urine Leukocyte Esterase 3+H, Urine RBC 2-4H, Urine WBC 0-2, Urine Squamous Epithelial Cells None, Urine Bacteria Few, Sodium Level 138, Potassium Level 5.1 , Chloride Level 103, Carbon Dioxide Level 25, Anion Gap 10, Blood Urea Nitrogen 38H, Creatinine 1.8H, Estimat Glomerular Filtration Rate , Glucose Level 171H, Lactic Acid Level 2.20H, Calcium Level 9.4, Total Bilirubin 0.4, Aspartate Amino Transf (AST/SGOT) 16, Alanine Aminotransferase (ALT/SGPT) 18, Alkaline Phosphatase 84, Total Creatine Kinase 95, Creatine Kinase MB 2.4, Creatine Kinase MB Relative Index 2.5, Troponin I 0.002, Total Protein 7.7, Albumin 3.9, Globulin 3.8, Albumin/Globulin Ratio 1.0 04/02/18 18:14: Lactic Acid Level 1.60 04/03/18 05:40: White Blood Count 4.9, Red Blood Count 4.74, Hemoglobin 10.4L, Hematocrit 33.9L , Mean Corpuscular Volume 72L, Mean Corpuscular Hemoglobin 22.0L, Mean Corpuscular Hemoglobin Concent 30.7L, Red Cell Distribution Width 12.4, Platelet Count 195, Mean Platelet Volume 6.0L, Neutrophils (%) (Auto) 69.3, Lymphocytes (%) (Auto) 19.6L, Monocytes (%) (Auto) 5.9, Eosinophils (%) (Auto) 4.1H, Basophils (%) (Auto) 1.1, Sodium Level 142, Potassium Level 4.4, Chloride Level 107, Carbon Dioxide Level 28, Anion Gap 7, Blood Urea Nitrogen 29H, Creatinine 1.4H, Estimat Glomerular Filtration Rate , Glucose Level 126H, Calcium Level 8.9 Height (Feet): 5 Height (Inches): 0.00 Weight (Pounds): 140 General Appearance: no apparent distress, alert EENT: normal ENT inspection Neck: non-tender, normal alignment, supple Cardiovascular: normal rate, regular rhythm Respiratory/Chest: chest wall non-tender, lungs clear, normal breath sounds Abdomen: normal bowel sounds, non tender, soft Extremities: normal range of motion, non-tender Edema: no edema noted Arm (L), no edema noted Arm (R), no edema noted Leg (L), no edema noted Leg (R), no edema noted Pedal (L), no edema noted Pedal (R), no edema noted Generalized Neurologic: alert, responsive Skin: warm/dry Lymphatic: normal anterior cervical (L), normal anterior cervical (R), normal posterior cervical (L), normal posterior cervical (R), normal submandibular (L) , normal submandibular (R), normal supraclavicular (L), normal supraclavicular ( R), normal axillary (L), normal axillary (R), normal inguinal (L), normal inguinal (R), normal other Suad Loving MD Apr 03, 2018 10:51
[2018-04-03 12:00] VITALS: BP 102/78
--- NOTE | 2018-04-03 15:30 | History and Physical Report ---
DATE OF ADMISSION: 04/02/2018 CHIEF COMPLAINT: Confusion for the past day or two at assisted living. HISTORY OF PRESENT ILLNESS: This is a an 87-year-old [place] male who was brought in by head cager from [facility] for complaint of slight confusion for the past couple of days. No fever or chills. No nausea or vomiting. The patient has a history of indwelling urinary catheter placement for past few years. No shortness of breath or chest pain. No abdominal pain and no fever or chills. PAST MEDICAL HISTORY: Includes history of hypertension, diabetes, Alzheimer's dementia, coronary artery disease, and depression. PAST SURGICAL HISTORY: History of suprapubic catheter placement. MEDICATIONS: Please review the medication list from the chart. ALLERGIES: Azithromycin. SOCIAL HISTORY: Denies smoking, alcohol use, or drug use. FAMILY HISTORY: Noncontributory. REVIEW OF SYSTEMS: Negative except for history of present illness. PHYSICAL EXAMINATION: VITAL SIGNS: Temperature 97.9, pulse 87, respirations 16, blood pressure 136/79, O2 saturation 97% via 4 liters of nasal cannula. GENERAL APPEARANCE: He is alert and slightly confused. HEENT: Normocephalic and normochromic. Extraocular muscles intact. Throat is clear. NECK: Supple. No lymphadenopathy CARDIOVASCULAR: Regular rate and rhythm. No murmur. No gallop. LUNGS: Clear to auscultation bilaterally. No wheezing. No rales. GASTROINTESTINAL: Soft, nontender, nondistended. Positive bowel sounds. GENITOURINARY: No CVA tenderness. EXTREMITIES: No edema, cyanosis, or clubbing. SKIN: No rash NEUROLOGICAL: responds to commands. LABORATORY AND DIAGNOSTIC DATA: Include WBC 5.7, hemoglobin 12.4, hematocrit 39.2, platelet count 187, neutrophils 73, lymphocytes 21, monos 4.1, eosinophils 0.9, and basophils 1.0. Sodium 138, potassium 5.1, chloride 103, carbon dioxide 25, BUN 38, creatinine 1.8, glucose 171. Lactic acid 2.2, followed by 1.6. Calcium 9.4, AST 16, ALT 18, alkaline phosphatase 84. Troponin is 0.002. Albumin 3.9. UA shows positive nitrite, +4 blood in the urine, +3 protein, and +3 leukocyte esterase, and 2 to 4 rbc's, few bacteria, urine wbc's 0 to 2. IMPRESSION: 1. Urinary tract infection with history of chronic indwelling catheter. We will start the patient on IV Rocephin 1 gram daily and will follow up urine cultures. We will have ID see the patient as well. 2. Hypertension. Now we will continue home medications, amlodipine 5 mg and Vasotec 20 mg daily. 3. Diabetes type 2. We will continue metformin 500 b.i.d. 4. Prerenal azotemia with dehydration. We will start the patient on IV fluids normal saline. 5. Depression. We will continue Celexa 40 mg daily. 6. Diabetes mellitus type 2. We will continue metformin 500 b.i.d. 7. Dementia with history of agitation. We will continue Zyprexa 5 mg at bedtime. The patient is stable without any aggitation. The patient will be admitted for minimum of 2-night stay for the diagnosis of urinary tract infection for IV antibiotics. Suad Loving M.D. DR: Farhan JOB#: [id number] CC: EMILY
[2018-04-03 16:00] VITALS: BP 111/78
--- NOTE | 2018-04-03 16:53 | Infectious Diseases Prog Note ---
Assessment/Plan Problems: (1) Catheter-associated urinary tract infection Assessment & Plan: will start ertapenem and vancomycin empirically to cover for possible ESBL producing organisms and MRSA/enterococcus pending urine culture . (2) Dehydration Assessment & Plan: continue IVF for hydration , monitor electrolytes (3) Encephalopathy acute Assessment & Plan: due to the above , continue antibiotics and hydration (4) ARF (acute renal failure) Assessment & Plan: due to the above, continue hydration , with close monitor of renal function, avoid nephrotoxics Subjective Allergies: Coded Allergies: No Known Allergies (Unverified , 11/26/14) Objective Vital Signs Last 24 Hour Vital Signs Date Time Temp Pulse Resp B/P (MAP) Pulse Ox O2 Delivery O2 Flow Rate FiO2 04/03/18 16:00 98.0 87 19 111/78 (89) 95 04/03/18 12:00 96.6 95 19 102/78 (86) 95 04/03/18 09:00 Room Air 04/03/18 08:51 70 146/78 04/03/18 08:50 146/78 04/03/18 08:00 97.2 70 19 146/78 (100) 95 04/03/18 04:00 98.0 72 19 139/77 (97) 95 04/03/18 00:00 97.2 64 18 137/93 (108) 93 04/02/18 21:00 Room Air 04/02/18 20:29 Room Air 04/02/18 20:00 97.0 72 19 149/76 (100) 93 04/02/18 19:50 98.5 84 22 137/83 96 Room Air 04/02/18 19:50 98.5 84 22 137/83 96 Room Air 04/02/18 17:32 73 18 Room Air 04/02/18 17:32 97.7 83 18 132/71 96 Room Air Height (Feet): 5 Height (Inches): 0.00 Weight (Pounds): 140 Laboratory Tests Test 04/02/18 17:00 04/02/18 18:14 04/03/18 05:40 White Blood Count 5.7 K/UL (4.8-10.8) 4.9 K/UL (4.8-10.8) Red Blood Count 5.55 M/UL (4.70-6.10) 4.74 M/UL (4.70-6.10) Hemoglobin 12.4 G/DL (14.2-18.0) L 10.4 G/DL (14.2-18.0) L Hematocrit 39.2 % (42.0-52.0) L 33.9 % (42.0-52.0) L Mean Corpuscular Volume 71 FL (80-99) L 72 FL (80-99) L Mean Corpuscular Hemoglobin 22.4 PG (27.0-31.0) L 22.0 PG (27.0-31.0) L Mean Corpuscular Hemoglobin Concent 31.7 G/DL (32.0-36.0) L 30.7 G/DL (32.0-36.0) L Red Cell Distribution Width 12.3 % (11.6-14.8) 12.4 % (11.6-14.8) Platelet Count 187 K/UL (150-450) 195 K/UL (150-450) Mean Platelet Volume 6.4 FL (6.5-10.1) L 6.0 FL (6.5-10.1) L Neutrophils (%) (Auto) 73.0 % (45.0-75.0) 69.3 % (45.0-75.0) Lymphocytes (%) (Auto) 21.0 % (20.0-45.0) 19.6 % (20.0-45.0) L Monocytes (%) (Auto) 4.1 % (1.0-10.0) 5.9 % (1.0-10.0) Eosinophils (%) (Auto) 0.9 % (0.0-3.0) 4.1 % (0.0-3.0) H Basophils (%) (Auto) 1.0 % (0.0-2.0) 1.1 % (0.0-2.0) Urine Color Pale yellow Urine Appearance Slightly cloudy Urine pH 6 (4.5-8.0) Urine Specific [place] 1.010 (1.005-1.035) Urine Protein 3+ (NEGATIVE) H Urine Glucose (UA) Negative (NEGATIVE) Urine Ketones Negative (NEGATIVE) Urine Blood 4+ (NEGATIVE) H Urine Nitrite Positive (NEGATIVE) H Urine Bilirubin Negative (NEGATIVE) Urine Urobilinogen Normal MG/DL (0.0-1.0) Urine Leukocyte Esterase 3+ (NEGATIVE) H Urine RBC 2-4 /HPF (0 - 0) H Urine WBC 0-2 /HPF (0 - 0) Urine Squamous Epithelial Cells None /LPF (NONE/OCC) Urine Bacteria Few /HPF (NONE) Sodium Level 138 MMOL/L (136-145) 142 MMOL/L (136-145) Potassium Level 5.1 MMOL/L (3.5-5.1) 4.4 MMOL/L (3.5-5.1) Chloride Level 103 MMOL/L (98-107) 107 MMOL/L (98-107) Carbon Dioxide Level 25 MMOL/L (21-32) 28 MMOL/L (21-32) Anion Gap 10 mmol/L (5-15) 7 mmol/L (5-15) Blood Urea Nitrogen 38 mg/dL (7-18) H 29 mg/dL (7-18) H Creatinine 1.8 MG/DL (0.55-1.30) H 1.4 MG/DL (0.55-1.30) H Estimat Glomerular Filtration Rate mL/min (>60) mL/min (>60) Glucose Level 171 MG/DL (74-106) H 126 MG/DL (74-106) H Lactic Acid Level 2.20 mmol/L (0.4-2.0) H 1.60 mmol/L (0.66-2.22) Calcium Level 9.4 MG/DL (8.5-10.1) 8.9 MG/DL (8.5-10.1) Total Bilirubin 0.4 MG/DL (0.2-1.0) Aspartate Amino Transf (AST/SGOT) 16 U/L (15-37) Alanine Aminotransferase (ALT/SGPT) 18 U/L (12-78) Alkaline Phosphatase 84 U/L (46-116) Total Creatine Kinase 95 U/L (26-308) Creatine Kinase MB 2.4 NG/ML (0.0-3.6) Creatine Kinase MB Relative Index 2.5 Troponin I 0.002 ng/mL (0.000-0.056) Total Protein 7.7 G/DL (6.4-8.2) Albumin 3.9 G/DL (3.4-5.0) Globulin 3.8 g/dL Albumin/Globulin Ratio 1.0 (1.0-2.7) Current Medications Medications (Trade) Dose Ordered Sig/Charlene Route PRN Reason Start Time Stop Time Status Last Admin Dose Admin Acetaminophen (Tylenol) 650 mg Q6H PRN ORAL Mild Pain/Temp > 100.5 04/02/18 21:00 05/02/18 20:59 Amlodipine Besylate (Norvasc) 5 mg DAILY ORAL 04/03/18 09:00 05/03/18 08:59 04/03/18 08:51 Aspirin (Ecotrin) 81 mg DAILY ORAL 04/03/18 09:00 05/03/18 08:59 04/03/18 08:49 Ceftriaxone Sodium 1 gm/ Dextrose 55 ml @ 110 mls/hr Q24H IVPB 04/03/18 17:00 04/10/18 16:59 Citalopram Hydrobromide (celeXA) 40 mg BEDTIME ORAL 04/03/18 21:00 05/03/18 20:59 Clopidogrel Bisulfate (Plavix) 75 mg DAILY ORAL 04/03/18 09:00 05/03/18 08:59 04/03/18 08:50 Dextrose (Dextrose 50%) 25 ml Q30M PRN IV Hypoglycemia 04/02/18 21:00 05/02/18 20:59 Dextrose (Dextrose 50%) 50 ml Q30M PRN IV Hypoglycemia 04/02/18 21:00 05/02/18 20:59 Enalapril Maleate (Vasotec) 20 mg DAILY ORAL 04/03/18 09:00 05/03/18 08:59 04/03/18 08:50 Heparin Sodium (Porcine) (Heparin 5000 units/ml) 5,000 units EVERY 12 HOURS SUBQ 04/02/18 21:00 05/02/18 20:59 04/03/18 08:50 Metformin HCl (Glucophage) 500 mg BID ORAL 04/03/18 18:00 05/03/18 17:59 Olanzapine (ZyPREXA) 5 mg DAILY ORAL 04/03/18 09:00 05/03/18 08:59 04/03/18 08:50 Ondansetron HCl (Zofran) 4 mg Q6H PRN IVP Nausea & Vomiting 04/02/18 21:00 05/02/18 20:59 Sodium Chloride 1,000 ml @ 50 mls/hr Q20H IV 04/02/18 21:04 05/02/18 21:03 04/02/18 21:34 Frida Billings M.D. Apr 03, 2018 16:53
[2018-04-03] MEDS ORDERED: cefTRIAXone 1 GM in D5W 55 ML IVPB SCH (17:00)
[2018-04-03] MEDS: metFORMIN 500mg tab ORAL SCH (17:31)
[2018-04-03] MEDS ORDERED: Ertapenem 0.5 GM in NS 55 ML IVPB SCH (18:00)
[2018-04-03 20:00] VITALS: BP 147/76
[2018-04-03] MEDS ORDERED: Vancomycin 1250mg/D5W 250ml IVPB ONE (20:00)
[2018-04-03] MEDS: Citalopram Hydrobromide 10mg Tab ORAL SCH (20:16)
[2018-04-04] VITALS: BP 149/67
[2018-04-04 04:00] VITALS: BP 134/55
[2018-04-04 08:00] VITALS: BP 142/52
[2018-04-04 08:29] LABS: EOSINOPHILS % (AUTO) 3.9 % (0.0-3.0); HEMATOCRIT 35.1 % (42.0-52.0); HEMOGLOBIN 11.3 G/DL (14.2-18.0); LYMPHOCYTES % (AUTO) 10.4 % (20.0-45.0); MEAN CORPUSCULAR VOLUME 72 FL (80-99); MONOCYTES % (AUTO) 3.8 % (1.0-10.0); NEUTROPHILS % (AUTO) 80.9 % (45.0-75.0); PLATELET COUNT 203 K/UL (150-450); WHITE BLOOD COUNT 7.8 K/UL (4.8-10.8)
[2018-04-04 08:30] LABS: ANION GAP 8 mmol/L (5-15); BLOOD UREA NITROGEN 23 mg/dL (7-18); CALCIUM 8.8 MG/DL (8.5-10.1); CARBON DIOXIDE 26 MMOL/L (21-32); CHLORIDE 105 MMOL/L (98-107); CREATININE 1.4 MG/DL (0.55-1.30); POTASSIUM 4.3 MMOL/L (3.5-5.1); SODIUM 139 MMOL/L (136-145)
--- NOTE | 2018-04-04 08:31 | General Progress Note ---
Assessment/Plan Status: stable Assessment/Plan 1. UTI with hx of chronic em cath - on vanco and ertapenam for ID. follow up urine cx. 2. HTN - cont Amlodipine 5 mg one po daily and vasotec 20 mg one po daily. 3. DM II - on Metformin 500 mg one po bid 4. Depression - cont celexa 40 mg one daily 5. Dementia with hx of aggitation - cont zyprexa 5 mg one po qhs 6. Hx of CAD - on Plavix 75 mg daily. 7. Dehydration - cont IVF NS at 50 cc/HR Subjective Date patient seen: Apr 04, 2018 Time patient seen: 08:30 Constitutional: Reports: weakness HEENT: Reports: no symptoms Cardiovascular: Reports: no symptoms Respiratory: Reports: no symptoms Gastrointestinal/Abdominal: Reports: no symptoms Genitourinary: Reports: no symptoms Neurologic/Psychiatric: Reports: no symptoms Endocrine: Reports: no symptoms Hematologic/Lymphatic: Reports: no symptoms Allergies: Coded Allergies: No Known Allergies (Unverified , 11/26/14) Subjective patient is lying in bed. no sob or chest pain. no fever or chills. no nausea or vomiting. Objective Last 24 Hour Vital Signs Date Time Temp Pulse Resp B/P (MAP) Pulse Ox O2 Delivery O2 Flow Rate FiO2 04/04/18 04:00 96.9 79 19 134/55 (81) 93 04/04/18 00:00 97.9 63 19 149/67 (94) 93 04/03/18 21:00 Room Air 04/03/18 20:00 96.6 65 18 147/76 (99) 95 04/03/18 16:00 98.0 87 19 111/78 (89) 95 04/03/18 12:00 96.6 95 19 102/78 (86) 95 04/03/18 09:00 Room Air 04/03/18 08:51 70 146/78 04/03/18 08:50 146/78 Intake and Output 04/03/18 04/04/18 19:00 07:00 Intake Total 480 ml 600 ml Output Total 1300 ml 1500 ml Balance -820 ml -900 ml Intake Oral 480 ml IV Total 600 ml Output Urine Total 1300 ml 1500 ml Laboratory Tests 04/04/18 08:05: White Blood Count [Pending], Red Blood Count [Pending], Hemoglobin [Pending], Hematocrit [Pending], Mean Corpuscular Volume [Pending], Mean Corpuscular Hemoglobin [Pending], Mean Corpuscular Hemoglobin Concent [Pending], Red Cell Distribution Width [Pending], Platelet Count [Pending], Mean Platelet Volume [ Pending], Neutrophils (%) (Auto) [Pending], Lymphocytes (%) (Auto) [Pending], Monocytes (%) (Auto) [Pending], Eosinophils (%) (Auto) [Pending], Basophils (%) (Auto) [Pending], Sodium Level [Pending], Potassium Level [Pending], Chloride Level [Pending], Carbon Dioxide Level [Pending], Blood Urea Nitrogen [Pending], Creatinine [Pending], Estimat Glomerular Filtration Rate [Pending], Glucose Level [Pending], Calcium Level [Pending] Height (Feet): 5 Height (Inches): 0.00 Weight (Pounds): 140 General Appearance: no apparent distress, alert EENT: normal ENT inspection Neck: non-tender, supple Cardiovascular: normal rate, regular rhythm Respiratory/Chest: lungs clear, normal breath sounds, no respiratory distress Abdomen: non tender, soft Extremities: normal range of motion, non-tender Edema: no edema noted Arm (L), no edema noted Arm (R), no edema noted Leg (L), no edema noted Leg (R), no edema noted Pedal (L), no edema noted Pedal (R), no edema noted Generalized Neurologic: responsive Skin: warm/dry Lymphatic: normal anterior cervical (L), normal anterior cervical (R), normal posterior cervical (L), normal posterior cervical (R), normal submandibular (L) , normal submandibular (R), normal supraclavicular (L), normal supraclavicular ( R), normal axillary (L), normal axillary (R), normal inguinal (L), normal inguinal (R), normal other Suad Loving MD Apr 04, 2018 08:31
[2018-04-04] MEDS: Aspirin EC 81mg tab ORAL SCH (10:35)
[2018-04-04] MEDS: metFORMIN 500mg tab ORAL SCH ×2 (10:35→18:39)
[2018-04-04] MEDS: Heparin 5000 units/ml inj SUBQ SCH ×2 (10:36→21:02)
[2018-04-04 12:00] VITALS: BP 131/70
--- NOTE | 2018-04-04 14:11 | Infectious Diseases Prog Note ---
Assessment/Plan Problems: (1) Catheter-associated urinary tract infection Assessment & Plan: due to streptococcus spp , will switch antibiotics back to ceftriaxone and treat for two weeks . continue local em catheter care and change as needed (2) Dehydration Assessment & Plan: continue IVF for hydration , monitor electrolytes (3) Encephalopathy acute Assessment & Plan: due to the above , continue antibiotics and hydration (4) ARF (acute renal failure) Assessment & Plan: due to the above, continue hydration , with close monitor of renal function, avoid nephrotoxics Subjective Constitutional: Reports: no symptoms HEENT: Reports: no symptoms Respiratory: Reports: no symptoms Breasts: Reports: no symptoms Cardiovascular: Reports: no symptoms Gastrointestinal/Abdominal: Reports: no symptoms Genitourinary: Reports: no symptoms Neurologic: Reports: no symptoms Psychiatric: Reports: no symptoms Skin: Reports: no symptoms Endocrine: Reports: no symptoms Hematologic: Reports: no symptoms Musculoskeletal: Reports: no symptoms Allergies: Coded Allergies: No Known Allergies (Unverified , 11/26/14) Objective Vital Signs Last 24 Hour Vital Signs Date Time Temp Pulse Resp B/P (MAP) Pulse Ox O2 Delivery O2 Flow Rate FiO2 04/04/18 12:00 98.1 76 18 131/70 (90) 95 04/04/18 10:35 142/52 04/04/18 10:35 80 142/52 04/04/18 09:00 Room Air 04/04/18 08:00 98.3 80 19 142/52 (82) 95 04/04/18 04:00 96.9 79 19 134/55 (81) 93 04/04/18 00:00 97.9 63 19 149/67 (94) 93 04/03/18 21:00 Room Air 04/03/18 20:00 96.6 65 18 147/76 (99) 95 04/03/18 16:00 98.0 87 19 111/78 (89) 95 Height (Feet): 5 Height (Inches): 0.00 Weight (Pounds): 140 General Appearance: WD/WN, no acute distress HEENT: normocephalic, atraumatic, anicteric, mucous membranes moist, PERRL Respiratory/Chest: chest wall non-tender, normal breath sounds, no respiratory distress, no accessory muscle use Cardiovascular: normal peripheral pulses, normal rate, regular rhythm, no gallop/murmur, no JVD Abdomen: normal bowel sounds, soft, non tender, no organomegaly, non distended , no mass, no scars Genitourinary: normal external genitalia, other - suprapubic catheter in place with clean site Extremities: no cyanosis, no clubbing Skin: no rash, no lesions, no ulcers Neurologic/Psychiatric: alert, oriented x 3, responsive Lymphatic: no neck adenopathy, no groin adenopathy Microbiology Date/Time Source Procedure Growth Status 04/02/18 17:00 Blood Blood Culture - Preliminary NO GROWTH AFTER 24 HOURS Resulted 04/02/18 16:50 Blood Blood Culture - Preliminary NO GROWTH AFTER 24 HOURS Resulted 04/02/18 17:18 Nasal Nares MRSA Culture - Final NO METHICILLIN RESISTANT STAPH AUREUS... Complete 04/02/18 21:40 Urine,Clean Catch Urine Culture - Preliminary Streptococcus Species Resulted 04/02/18 17:18 Rectum VRE Culture - Final Enterococcus Faecalis - Vre Complete Laboratory Tests Test 04/04/18 08:05 White Blood Count 7.8 K/UL (4.8-10.8) # Red Blood Count 4.90 M/UL (4.70-6.10) Hemoglobin 11.3 G/DL (14.2-18.0) L Hematocrit 35.1 % (42.0-52.0) L Mean Corpuscular Volume 72 FL (80-99) L Mean Corpuscular Hemoglobin 23.1 PG (27.0-31.0) L Mean Corpuscular Hemoglobin Concent 32.3 G/DL (32.0-36.0) Red Cell Distribution Width 12.0 % (11.6-14.8) Platelet Count 203 K/UL (150-450) Mean Platelet Volume 5.8 FL (6.5-10.1) L Neutrophils (%) (Auto) 80.9 % (45.0-75.0) H Lymphocytes (%) (Auto) 10.4 % (20.0-45.0) L Monocytes (%) (Auto) 3.8 % (1.0-10.0) Eosinophils (%) (Auto) 3.9 % (0.0-3.0) H Basophils (%) (Auto) 1.0 % (0.0-2.0) Sodium Level 139 MMOL/L (136-145) Potassium Level 4.3 MMOL/L (3.5-5.1) Chloride Level 105 MMOL/L (98-107) Carbon Dioxide Level 26 MMOL/L (21-32) Anion Gap 8 mmol/L (5-15) Blood Urea Nitrogen 23 mg/dL (7-18) H Creatinine 1.4 MG/DL (0.55-1.30) H Estimat Glomerular Filtration Rate mL/min (>60) Glucose Level 215 MG/DL (74-106) H Calcium Level 8.8 MG/DL (8.5-10.1) Current Medications Medications (Trade) Dose Ordered Sig/Charlene Route PRN Reason Start Time Stop Time Status Last Admin Dose Admin Acetaminophen (Tylenol) 650 mg Q6H PRN ORAL Mild Pain/Temp > 100.5 04/02/18 21:00 05/02/18 20:59 Amlodipine Besylate (Norvasc) 5 mg DAILY ORAL 04/03/18 09:00 05/03/18 08:59 04/04/18 10:35 Aspirin (Ecotrin) 81 mg DAILY ORAL 04/03/18 09:00 05/03/18 08:59 04/04/18 10:35 Citalopram Hydrobromide (celeXA) 40 mg BEDTIME ORAL 04/03/18 21:00 05/03/18 20:59 04/03/18 20:16 Clopidogrel Bisulfate (Plavix) 75 mg DAILY ORAL 04/03/18 09:00 05/03/18 08:59 04/04/18 10:35 Dextrose (Dextrose 50%) 25 ml Q30M PRN IV Hypoglycemia 04/02/18 21:00 05/02/18 20:59 Dextrose (Dextrose 50%) 50 ml Q30M PRN IV Hypoglycemia 04/02/18 21:00 05/02/18 20:59 Enalapril Maleate (Vasotec) 20 mg DAILY ORAL 04/03/18 09:00 05/03/18 08:59 04/04/18 10:35 Ertapenem 0.5 gm/ Sodium Chloride 55 ml @ 110 mls/hr Q24H IVPB 04/03/18 18:00 04/08/18 17:59 04/03/18 18:00 Heparin Sodium (Porcine) (Heparin 5000 units/ml) 5,000 units EVERY 12 HOURS SUBQ 04/02/18 21:00 05/02/18 20:59 04/04/18 10:36 Metformin HCl (Glucophage) 500 mg BID ORAL 04/03/18 18:00 05/03/18 17:59 04/04/18 10:35 Olanzapine (ZyPREXA) 5 mg DAILY ORAL 04/03/18 09:00 05/03/18 08:59 04/04/18 10:35 Ondansetron HCl (Zofran) 4 mg Q6H PRN IVP Nausea & Vomiting 04/02/18 21:00 05/02/18 20:59 Sodium Chloride 1,000 ml @ 50 mls/hr Q20H IV 04/02/18 21:04 05/02/18 21:03 04/03/18 17:31 Vancomycin HCl (Vanco rx to dose) 1 ea DAILY PRN MISC Per rx protocol 04/03/18 17:00 05/03/18 16:59 Vancomycin HCl 500 mg/Dextrose 110 ml @ 110 mls/hr Q24H IVPB 04/04/18 20:00 04/09/18 19:59 Frida Billings M.D. Apr 04, 2018 14:11
[2018-04-04] MEDS ORDERED: cefTRIAXone 1 GM in D5W 55 ML IVPB SCH (15:00)
[2018-04-04 16:00] VITALS: BP 134/55
--- NOTE | 2018-04-04 18:00 | Consultation ---
DATE OF CONSULTATION: 04/04/2018 INFECTIOUS DISEASE CONSULTATION CONSULTING PHYSICIAN: Frida Billings M.D. REQUESTING PHYSICIAN: Suad Loving M.D. REASON FOR CONSULTATION: Catheter-associated urinary tract infection. Recommendation for antibiotics treatment. HISTORY OF PRESENT ILLNESS: The patient is an 87-year-old male, [place] speaker, with past medical history of hypertension, diabetes, Alzheimer dementia, coronary artery disease, and depression, who was brought in from assisted living in [facility] to [facility] Emergency Room for confusion and encephalopathy. There was no fever or chills. No nausea or vomiting. No diarrhea. The patient had suprapubic urinary catheter with no evidence of infection at the site or pus draining from around it. The patient was found to have urinary tract infection in the emergency room and he was started on ceftriaxone. Infectious Disease consultation was requested for antibiotics treatment and further management. As of note, the patient is poor historian and cannot provide any history. History was mainly obtained from the medical record. PAST MEDICAL HISTORY: Significant for hypertension, diabetes, Alzheimer dementia, coronary artery disease, and depression. PAST SURGICAL HISTORY: He had a suprapubic catheter placement. ALLERGIES: He is allergic to azithromycin. SOCIAL HISTORY: The patient lives in assisting living at [facility]. No recent drugs, tobacco, or alcohol. FAMILY HISTORY: Noncontributory. MEDICATIONS: He is currently on ceftriaxone 1 g IV q.24 hours. For the rest of his medications, please refer to MAR. PHYSICAL EXAMINATION: VITAL SIGNS: Temperature 96.6, pulse 95, respirations 19, blood pressure 102/78, saturation 95% on room air. GENERAL: Elderly male, lying in bed, demented, lethargic, responsive to verbal commands, not in acute distress. HEENT: Normocephalic and atraumatic. Pupils reactive to light equally. Pale sclerae. Moist oral mucosa. No exudate or thrush. NECK: Supple. No lymphadenopathy. CARDIOVASCULAR: Regular rate and rhythm. No murmur or gallop. LUNGS: He had diminished breathing sounds at the bases with crackles. No wheezing or rhonchi. Normal breathing efforts. ABDOMEN: Soft, nontender, and nondistended. Normal bowel sounds. No hepatosplenomegaly or ascites. EXTREMITIES: No edema or cyanosis. GENITOURINARY: He has suprapubic catheter in place with clean site. No evidence of drainage or pus coming from the catheter site. LABORATORY DATA: Laboratories showed white count of 4.9, hemoglobin of 10.4, platelet count of 195,000. BUN of 29, creatinine of 1.4, lactic acid of 2.2. Urinalysis was positive for nitrite, +3 leukocyte esterase, wbc's 0-2, and few urine bacteria. MICROBIOLOGY: Blood culture x2 pending and urine culture is pending. RADIOLOGY: 1. Chest x-ray showed stable hypoventilatory exam, nonspecific bibasilar opacity likely represents atelectasis, superimposed infectious or inflammatory process is not excluded. 2. Head CT scan with no contrast showed no acute intracranial abnormalities. ASSESSMENT AND RECOMMENDATION: 1. Catheter-associated urinary tract infection. We will start the patient on ertapenem due to history of ESBL-producing organism and vancomycin due to history of MRSA and enterococcus infection pending urine culture study. Deescalate antibiotics based on his culture. 2. Dehydration. Continue IV fluid for hydration. Monitor electrolytes. 3. Encephalopathy, acute, suspect due to the above. Continue antibiotics and hydration. Monitor mental status. 4. Acute renal failure due to the above. Continue hydration with close monitoring of renal function. Avoid nephrotoxic. Renally dose medications. Thank you for the consult. ID will continue to follow. Frida Billings M.D. DR: Jamarcus JOB#: [id number] CC:
[2018-04-04 19:53] VITALS: BP 128/76
[2018-04-04] MEDS ORDERED: Vancomycin 500mg/D5W 110ml IVPB SCH ×2 (20:00)
[2018-04-04] MEDS: Citalopram Hydrobromide 10mg Tab ORAL SCH (20:59)
[2018-04-05 00:30] VITALS: BP 118/58
[2018-04-05 04:00] VITALS: BP 94/58
[2018-04-05 08:00] VITALS: BP 128/76
--- NOTE | 2018-04-05 09:01 | General Progress Note ---
Assessment/Plan Status: stable Assessment/Plan 1. UTI with hx of chronic em cath - on vanco and ertapenam for ID. follow up urine cx. 2. HTN - cont Amlodipine 5 mg one po daily and vasotec 20 mg one po daily. 3. DM II - on Metformin 500 mg one po bid 4. Depression - cont celexa 40 mg one daily 5. Dementia with hx of aggitation - Decrease zyprexa 2.5 mg one po qhs 6. Hx of CAD - on Plavix 75 mg daily. 7. Dehydration - cont IVF NS at 50 cc/HR Subjective Date patient seen: Apr 05, 2018 Time patient seen: 08:30 Constitutional: Reports: no symptoms HEENT: Reports: no symptoms Cardiovascular: Reports: no symptoms Respiratory: Reports: no symptoms Gastrointestinal/Abdominal: Reports: no symptoms Genitourinary: Reports: no symptoms Neurologic/Psychiatric: Reports: no symptoms Endocrine: Reports: no symptoms Hematologic/Lymphatic: Reports: no symptoms Allergies: Coded Allergies: No Known Allergies (Unverified , 11/26/14) Subjective Patient is lying in bed. no sob or chest pain. No fever or Chills. no nausea or vomiting. Objective Last 24 Hour Vital Signs Date Time Temp Pulse Resp B/P (MAP) Pulse Ox O2 Delivery O2 Flow Rate FiO2 04/05/18 04:00 96.4 58 18 94/58 (70) 93 04/05/18 00:30 96.7 62 17 118/58 (78) 93 04/04/18 20:25 Room Air 04/04/18 19:53 98.6 71 18 128/76 (93) 93 04/04/18 16:00 96.9 79 19 134/55 (81) 93 04/04/18 12:00 98.1 76 18 131/70 (90) 95 04/04/18 10:35 142/52 04/04/18 10:35 80 142/52 04/04/18 09:00 Room Air Intake and Output 04/04/18 04/05/18 19:00 07:00 Intake Total 870 ml 600 ml Output Total 1800 ml 550 ml Balance -930 ml 50 ml Intake Oral 720 ml IV Total 150 ml 600 ml Output Urine Total 1800 ml 550 ml # Bowel Movements 1 Height (Feet): 5 Height (Inches): 0.00 Weight (Pounds): 140 General Appearance: no apparent distress, alert Neck: supple Cardiovascular: normal rate, regular rhythm Respiratory/Chest: lungs clear, normal breath sounds Abdomen: non tender, soft Extremities: non-tender Edema: no edema noted Arm (L), no edema noted Arm (R), no edema noted Leg (L), no edema noted Leg (R), no edema noted Pedal (L), no edema noted Pedal (R), no edema noted Generalized Neurologic: alert, responsive Skin: warm/dry Lymphatic: normal anterior cervical (L), normal anterior cervical (R), normal posterior cervical (L), normal posterior cervical (R), normal submandibular (L) , normal submandibular (R), normal supraclavicular (L), normal supraclavicular ( R), normal axillary (L), normal axillary (R), normal inguinal (L), normal inguinal (R), normal other Suad Loving MD Apr 05, 2018 09:01
[2018-04-05 09:29] LABS: BASOPHILS % (AUTO) 0.7 % (0.0-2.0); EOSINOPHILS % (AUTO) 7.7 % (0.0-3.0); HEMATOCRIT 34.5 % (42.0-52.0); HEMOGLOBIN 10.7 G/DL (14.2-18.0); LYMPHOCYTES % (AUTO) 30.4 % (20.0-45.0); MEAN CORPUSCULAR VOLUME 72 FL (80-99); MONOCYTES % (AUTO) 5.6 % (1.0-10.0); NEUTROPHILS % (AUTO) 55.6 % (45.0-75.0); PLATELET COUNT 183 K/UL (150-450); RED BLOOD COUNT 4.82 M/UL (4.70-6.10); RED CELL DISTRIBUTION WIDTH 12.1 % (11.6-14.8); WHITE BLOOD COUNT 5.6 K/UL (4.8-10.8)
[2018-04-05 09:42] LABS: ANION GAP 7 mmol/L (5-15); BLOOD UREA NITROGEN 27 mg/dL (7-18); CALCIUM 8.7 MG/DL (8.5-10.1); CARBON DIOXIDE 26 MMOL/L (21-32); CHLORIDE 108 MMOL/L (98-107); CREATININE 1.4 MG/DL (0.55-1.30); POTASSIUM 4.5 MMOL/L (3.5-5.1); SODIUM 141 MMOL/L (136-145)
[2018-04-05] MEDS: metFORMIN 500mg tab ORAL SCH ×2 (10:30→18:28)
[2018-04-05] MEDS: Heparin 5000 units/ml inj SUBQ SCH ×2 (10:34→21:10)
[2018-04-05] MEDS: Aspirin EC 81mg tab ORAL SCH (11:36)
[2018-04-05 12:00] VITALS: BP 118/68
--- NOTE | 2018-04-05 14:26 | Infectious Diseases Prog Note ---
Assessment/Plan Problems: (1) Catheter-associated urinary tract infection Assessment & Plan: final urine culture grew enterococcus faecalis resistant to vancomycin , and two gram negative rods . will switch antibiotics to ampicillin and ertapenem and treat for two weeks . continue local em catheter care and change as needed (2) Dehydration Assessment & Plan: continue IVF for hydration , monitor electrolytes (3) Encephalopathy acute Assessment & Plan: due to the above , continue antibiotics and hydration , monitor mental status (4) ARF (acute renal failure) Assessment & Plan: due to the above, continue hydration , with close monitor of renal function, avoid nephrotoxics Subjective Constitutional: Reports: no symptoms HEENT: Reports: no symptoms Respiratory: Reports: no symptoms Breasts: Reports: no symptoms Cardiovascular: Reports: no symptoms Gastrointestinal/Abdominal: Reports: no symptoms Genitourinary: Reports: no symptoms Neurologic: Reports: no symptoms Psychiatric: Reports: no symptoms Skin: Reports: no symptoms Endocrine: Reports: no symptoms Hematologic: Reports: no symptoms Musculoskeletal: Reports: no symptoms Allergies: Coded Allergies: No Known Allergies (Unverified , 11/26/14) Subjective he was sleeping but responds to verbal commands . Objective Vital Signs Last 24 Hour Vital Signs Date Time Temp Pulse Resp B/P (MAP) Pulse Ox O2 Delivery O2 Flow Rate FiO2 04/05/18 11:39 141 92/82 04/05/18 11:36 142/90 04/05/18 04:00 96.4 58 18 94/58 (70) 93 04/05/18 00:30 96.7 62 17 118/58 (78) 93 04/04/18 20:25 Room Air 04/04/18 19:53 98.6 71 18 128/76 (93) 93 04/04/18 16:00 96.9 79 19 134/55 (81) 93 Height (Feet): 5 Height (Inches): 0.00 Weight (Pounds): 140 General Appearance: WD/WN, no acute distress HEENT: normocephalic, atraumatic, anicteric, mucous membranes moist, PERRL Respiratory/Chest: chest wall non-tender, lungs clear, normal breath sounds, no respiratory distress, no accessory muscle use Cardiovascular: normal peripheral pulses, normal rate, regular rhythm, no gallop/murmur, no JVD Abdomen: normal bowel sounds, soft, non tender, no organomegaly, non distended , no mass, no scars Genitourinary: normal external genitalia, other - suprapubic catheter with clean site Extremities: no cyanosis, no clubbing Skin: no rash, no lesions, no ulcers Neurologic/Psychiatric: alert, responsive Lymphatic: no neck adenopathy, no groin adenopathy Musculoskeletal: normal muscle bulk, no effusion Microbiology Date/Time Source Procedure Growth Status 04/02/18 17:00 Blood Blood Culture - Preliminary NO GROWTH AFTER 48 HOURS Resulted 04/02/18 16:50 Blood Blood Culture - Preliminary NO GROWTH AFTER 48 HOURS Resulted 04/02/18 17:18 Nasal Nares MRSA Culture - Final NO METHICILLIN RESISTANT STAPH AUREUS... Complete 04/02/18 21:40 Urine,Clean Catch Urine Culture - Preliminary Enterococcus Faecalis - Vre Gram Negative Bacillus 1 Gram Negative Bacillus 2 Resulted 04/02/18 17:18 Rectum VRE Culture - Final Enterococcus Faecalis - Vre Complete 04/02/18 17:18 Rectum - Final NO CARBAPENEM-RESISTANT ENTEROBACTERI... Complete Laboratory Tests Test 04/05/18 09:20 White Blood Count 5.6 K/UL (4.8-10.8) Red Blood Count 4.82 M/UL (4.70-6.10) Hemoglobin 10.7 G/DL (14.2-18.0) L Hematocrit 34.5 % (42.0-52.0) L Mean Corpuscular Volume 72 FL (80-99) L Mean Corpuscular Hemoglobin 22.2 PG (27.0-31.0) L Mean Corpuscular Hemoglobin Concent 31.0 G/DL (32.0-36.0) L Red Cell Distribution Width 12.1 % (11.6-14.8) Platelet Count 183 K/UL (150-450) Mean Platelet Volume 5.9 FL (6.5-10.1) L Neutrophils (%) (Auto) 55.6 % (45.0-75.0) Lymphocytes (%) (Auto) 30.4 % (20.0-45.0) Monocytes (%) (Auto) 5.6 % (1.0-10.0) Eosinophils (%) (Auto) 7.7 % (0.0-3.0) H Basophils (%) (Auto) 0.7 % (0.0-2.0) Sodium Level 141 MMOL/L (136-145) Potassium Level 4.5 MMOL/L (3.5-5.1) Chloride Level 108 MMOL/L (98-107) H Carbon Dioxide Level 26 MMOL/L (21-32) Anion Gap 7 mmol/L (5-15) Blood Urea Nitrogen 27 mg/dL (7-18) H Creatinine 1.4 MG/DL (0.55-1.30) H Estimat Glomerular Filtration Rate mL/min (>60) Glucose Level 123 MG/DL (74-106) H Calcium Level 8.7 MG/DL (8.5-10.1) Current Medications Medications (Trade) Dose Ordered Sig/Charlene Route PRN Reason Start Time Stop Time Status Last Admin Dose Admin Acetaminophen (Tylenol) 650 mg Q6H PRN ORAL Mild Pain/Temp > 100.5 04/02/18 21:00 05/02/18 20:59 04/05/18 11:38 Amlodipine Besylate (Norvasc) 5 mg DAILY ORAL 04/03/18 09:00 05/03/18 08:59 04/05/18 11:39 Ampicillin 1 gm/ Sodium Chloride 55 ml @ 110 mls/hr EVERY 6 HOURS IVPB 04/05/18 14:00 04/12/18 13:59 Aspirin (Ecotrin) 81 mg DAILY ORAL 04/03/18 09:00 05/03/18 08:59 04/05/18 11:36 Citalopram Hydrobromide (celeXA) 40 mg BEDTIME ORAL 04/03/18 21:00 05/03/18 20:59 04/04/18 20:59 Clopidogrel Bisulfate (Plavix) 75 mg DAILY ORAL 04/03/18 09:00 05/03/18 08:59 04/05/18 11:36 Dextrose (Dextrose 50%) 25 ml Q30M PRN IV Hypoglycemia 04/02/18 21:00 05/02/18 20:59 Dextrose (Dextrose 50%) 50 ml Q30M PRN IV Hypoglycemia 04/02/18 21:00 05/02/18 20:59 Enalapril Maleate (Vasotec) 20 mg DAILY ORAL 04/03/18 09:00 05/03/18 08:59 04/05/18 11:36 Ertapenem 0.5 gm/ Sodium Chloride 55 ml @ 110 mls/hr Q24H IVPB 04/05/18 15:00 04/10/18 14:59 Heparin Sodium (Porcine) (Heparin 5000 units/ml) 5,000 units EVERY 12 HOURS SUBQ 04/02/18 21:00 05/02/18 20:59 04/05/18 10:34 Metformin HCl (Glucophage) 500 mg BID ORAL 04/03/18 18:00 05/03/18 17:59 04/05/18 10:30 Olanzapine (ZyPREXA) 2.5 mg BEDTIME ORAL 04/05/18 21:00 05/05/18 20:59 Ondansetron HCl (Zofran) 4 mg Q6H PRN IVP Nausea & Vomiting 04/02/18 21:00 05/02/18 20:59 Sodium Chloride 1,000 ml @ 50 mls/hr Q20H IV 04/02/18 21:04 05/02/18 21:03 04/05/18 00:14 Frida Billings M.D. Apr 05, 2018 14:26
[2018-04-05] MEDS ORDERED: Ertapenem 0.5 GM in NS 55 ML IVPB SCH (15:00)
[2018-04-05] MEDS: Ampicillin 1 GM in NS 55 ML IVPB SCH ×2 (17:38→23:06)
[2018-04-05 20:00] VITALS: BP 155/72
[2018-04-05 20:34] VITALS: BP 155/72
[2018-04-05] MEDS: OLANZapine 2.5mg tab ORAL SCH (21:09)
[2018-04-05] MEDS: Citalopram Hydrobromide 10mg Tab ORAL SCH (21:09)
[2018-04-06] VITALS (7 sets, daily range): BP systolic 132–157; BP diastolic 62–85
[2018-04-06] MEDS: Ampicillin 1 GM in NS 55 ML IVPB SCH ×3 (05:30→18:46)
[2018-04-06 06:34] LABS: BASOPHILS % (AUTO) 0.6 % (0.0-2.0); HEMATOCRIT 32.9 % (42.0-52.0); HEMOGLOBIN 10.3 G/DL (14.2-18.0); LYMPHOCYTES % (AUTO) 23.2 % (20.0-45.0); MEAN CORPUSCULAR VOLUME 71 FL (80-99); MONOCYTES % (AUTO) 6.5 % (1.0-10.0); NEUTROPHILS % (AUTO) 64.7 % (45.0-75.0); PLATELET COUNT 183 K/UL (150-450); RED BLOOD COUNT 4.62 M/UL (4.70-6.10); RED CELL DISTRIBUTION WIDTH 12.4 % (11.6-14.8); WHITE BLOOD COUNT 5.9 K/UL (4.8-10.8)
[2018-04-06 06:48] LABS: ANION GAP 6 mmol/L (5-15); BLOOD UREA NITROGEN 28 mg/dL (7-18); CALCIUM 8.9 MG/DL (8.5-10.1); CARBON DIOXIDE 28 MMOL/L (21-32); CHLORIDE 108 MMOL/L (98-107); CREATININE 1.3 MG/DL (0.55-1.30); POTASSIUM 4.4 MMOL/L (3.5-5.1); SODIUM 142 MMOL/L (136-145)
[2018-04-06] MEDS ORDERED: Tubing IV Secondary IV ONE (08:36)
--- NOTE | 2018-04-06 08:55 | General Progress Note ---
Assessment/Plan Status: stable Assessment/Plan 1. UTI with hx of chronic em cath - on Ampicillin and ertapenam for ID. May need to switch Ertapenem to Levaquin to cover for pseudomonas. will discuss with ID. D/C planning to SNF in 1-2 days. 2. HTN - cont Amlodipine 5 mg one po daily and vasotec 20 mg one po daily. 3. DM II - on Metformin 500 mg one po bid 4. Depression - cont celexa 40 mg one daily 5. Dementia with hx of aggitation - Increase zyprexa 5 mg one po qhs 6. Hx of CAD - on Plavix 75 mg daily. 7. Dehydration - Improved. cont IVF NS at 50 cc/HR Subjective Date patient seen: Apr 06, 2018 Time patient seen: 08:30 Constitutional: Reports: weakness HEENT: Reports: no symptoms Cardiovascular: Reports: no symptoms Respiratory: Reports: no symptoms Gastrointestinal/Abdominal: Reports: no symptoms Genitourinary: Reports: no symptoms Neurologic/Psychiatric: Reports: no symptoms Endocrine: Reports: no symptoms Hematologic/Lymphatic: Reports: no symptoms Allergies: Coded Allergies: No Known Allergies (Unverified , 11/26/14) Subjective Patient is lying in bed. no sob or chest pain. No fever or Chills. no nausea or vomiting. Objective Last 24 Hour Vital Signs Date Time Temp Pulse Resp B/P (MAP) Pulse Ox O2 Delivery O2 Flow Rate FiO2 04/06/18 07:55 97.8 64 20 151/72 (98) 97 04/06/18 04:00 97.6 80 20 132/85 (101) 96 04/06/18 00:00 97.8 68 16 148/76 (100) 95 04/05/18 20:34 98.0 65 17 155/72 (99) 95 04/05/18 20:21 Room Air 04/05/18 20:00 98.0 65 17 155/72 (99) 95 04/05/18 12:00 96.7 62 18 118/68 (85) 96 04/05/18 11:39 141 92/82 04/05/18 11:36 142/90 04/05/18 09:00 Room Air Intake and Output 04/05/18 04/06/18 19:00 07:00 Intake Total 680 ml 1020 ml Output Total 600 ml 1100 ml Balance 80 ml -80 ml Intake Oral 120 ml 360 ml IV Total 560 ml 660 ml Output Urine Total 600 ml 1100 ml # Voids 2 # Bowel Movements 1 Laboratory Tests 04/05/18 09:20: White Blood Count 5.6, Red Blood Count 4.82, Hemoglobin 10.7L, Hematocrit 34.5L , Mean Corpuscular Volume 72L, Mean Corpuscular Hemoglobin 22.2L, Mean Corpuscular Hemoglobin Concent 31.0L, Red Cell Distribution Width 12.1, Platelet Count 183, Mean Platelet Volume 5.9L, Neutrophils (%) (Auto) 55.6, Lymphocytes (%) (Auto) 30.4, Monocytes (%) (Auto) 5.6, Eosinophils (%) (Auto) 7.7H, Basophils (%) (Auto) 0.7, Sodium Level 141, Potassium Level 4.5, Chloride Level 108H, Carbon Dioxide Level 26, Anion Gap 7, Blood Urea Nitrogen 27H, Creatinine 1.4H, Estimat Glomerular Filtration Rate , Glucose Level 123H, Calcium Level 8.7 04/06/18 05:30: White Blood Count 5.9, Red Blood Count 4.62L, Hemoglobin 10.3L, Hematocrit 32.9L , Mean Corpuscular Volume 71L, Mean Corpuscular Hemoglobin 22.2L, Mean Corpuscular Hemoglobin Concent 31.2L, Red Cell Distribution Width 12.4, Platelet Count 183, Mean Platelet Volume 6.4L, Neutrophils (%) (Auto) 64.7, Lymphocytes (%) (Auto) 23.2, Monocytes (%) (Auto) 6.5, Eosinophils (%) (Auto) 5.0H, Basophils (%) (Auto) 0.6, Sodium Level 142, Potassium Level 4.4, Chloride Level 108H, Carbon Dioxide Level 28, Anion Gap 6, Blood Urea Nitrogen 28H, Creatinine 1.3, Estimat Glomerular Filtration Rate , Glucose Level 120H, Calcium Level 8.9 Height (Feet): 5 Height (Inches): 0.00 Weight (Pounds): 138 General Appearance: alert, lethargic Neck: non-tender, supple Cardiovascular: normal rate, regular rhythm Respiratory/Chest: lungs clear, normal breath sounds, no respiratory distress Abdomen: non tender, soft Extremities: non-tender Edema: no edema noted Arm (L), no edema noted Arm (R), no edema noted Leg (L), no edema noted Leg (R), no edema noted Pedal (L), no edema noted Pedal (R), no edema noted Generalized Neurologic: responsive Skin: warm/dry Lymphatic: normal anterior cervical (L), normal anterior cervical (R), normal posterior cervical (L), normal posterior cervical (R), normal submandibular (L) , normal submandibular (R), normal supraclavicular (L), normal supraclavicular ( R), normal axillary (L), normal axillary (R), normal inguinal (L), normal inguinal (R), normal other Suad Loving MD Apr 06, 2018 08:55
[2018-04-06] MEDS: Heparin 5000 units/ml inj SUBQ SCH ×2 (09:27→21:05)
[2018-04-06] MEDS: Aspirin EC 81mg tab ORAL SCH (09:33)
[2018-04-06] MEDS: metFORMIN 500mg tab ORAL SCH ×2 (09:33→17:21)
--- NOTE | 2018-04-06 16:34 | Infectious Diseases Prog Note ---
Assessment/Plan Problems: (1) Catheter-associated urinary tract infection Assessment & Plan: final urine culture grew enterococcus faecalis resistant to vancomycin , and pseudomonas aeruginosa with enterobacter . will switch antibiotics to ampicillin and ciprofloxacin and treat for two weeks . continue local em catheter care and change as needed (2) Dehydration Assessment & Plan: continue IVF for hydration , monitor electrolytes (3) Encephalopathy acute Assessment & Plan: due to the above , continue antibiotics and hydration , monitor mental status (4) ARF (acute renal failure) Assessment & Plan: due to the above, continue hydration , with close monitor of renal function, avoid nephrotoxics Subjective ROS Limited/Unobtainable: Yes Allergies: Coded Allergies: No Known Allergies (Unverified , 11/26/14) Subjective he was sleeping but responds to verbal commands, more awake and alert, NAD . Objective Vital Signs Last 24 Hour Vital Signs Date Time Temp Pulse Resp B/P (MAP) Pulse Ox O2 Delivery O2 Flow Rate FiO2 04/06/18 16:00 98.2 68 20 138/74 (95) 96 04/06/18 11:10 97.3 66 20 157/62 (93) 99 04/06/18 09:34 134/76 04/06/18 09:33 69 134/76 04/06/18 09:00 Room Air 04/06/18 08:00 69 134/76 (95) 04/06/18 07:55 97.8 64 20 151/72 (98) 97 04/06/18 04:00 97.6 80 20 132/85 (101) 96 04/06/18 00:00 97.8 68 16 148/76 (100) 95 04/05/18 20:34 98.0 65 17 155/72 (99) 95 04/05/18 20:21 Room Air 04/05/18 20:00 98.0 65 17 155/72 (99) 95 Height (Feet): 5 Height (Inches): 0.00 Weight (Pounds): 138 General Appearance: WD/WN, no acute distress HEENT: normocephalic, atraumatic, anicteric, mucous membranes moist, PERRL Respiratory/Chest: chest wall non-tender, lungs clear, normal breath sounds, no respiratory distress, no accessory muscle use Cardiovascular: normal peripheral pulses, normal rate, regular rhythm, no gallop/murmur, no JVD Abdomen: normal bowel sounds, soft, non tender, no organomegaly, non distended , no mass, no scars Extremities: no cyanosis, no clubbing Skin: no rash, no lesions, no ulcers Neurologic/Psychiatric: alert, responsive Lymphatic: no neck adenopathy, no groin adenopathy Musculoskeletal: normal muscle bulk, no effusion Laboratory Tests Test 04/06/18 05:30 White Blood Count 5.9 K/UL (4.8-10.8) Red Blood Count 4.62 M/UL (4.70-6.10) L Hemoglobin 10.3 G/DL (14.2-18.0) L Hematocrit 32.9 % (42.0-52.0) L Mean Corpuscular Volume 71 FL (80-99) L Mean Corpuscular Hemoglobin 22.2 PG (27.0-31.0) L Mean Corpuscular Hemoglobin Concent 31.2 G/DL (32.0-36.0) L Red Cell Distribution Width 12.4 % (11.6-14.8) Platelet Count 183 K/UL (150-450) Mean Platelet Volume 6.4 FL (6.5-10.1) L Neutrophils (%) (Auto) 64.7 % (45.0-75.0) Lymphocytes (%) (Auto) 23.2 % (20.0-45.0) Monocytes (%) (Auto) 6.5 % (1.0-10.0) Eosinophils (%) (Auto) 5.0 % (0.0-3.0) H Basophils (%) (Auto) 0.6 % (0.0-2.0) Sodium Level 142 MMOL/L (136-145) Potassium Level 4.4 MMOL/L (3.5-5.1) Chloride Level 108 MMOL/L (98-107) H Carbon Dioxide Level 28 MMOL/L (21-32) Anion Gap 6 mmol/L (5-15) Blood Urea Nitrogen 28 mg/dL (7-18) H Creatinine 1.3 MG/DL (0.55-1.30) Estimat Glomerular Filtration Rate mL/min (>60) Glucose Level 120 MG/DL (74-106) H Calcium Level 8.9 MG/DL (8.5-10.1) Current Medications Medications (Trade) Dose Ordered Sig/Charlene Route PRN Reason Start Time Stop Time Status Last Admin Dose Admin Acetaminophen (Tylenol) 650 mg Q6H PRN ORAL Mild Pain/Temp > 100.5 04/02/18 21:00 05/02/18 20:59 04/05/18 11:38 Amlodipine Besylate (Norvasc) 5 mg DAILY ORAL 04/03/18 09:00 05/03/18 08:59 04/06/18 09:33 Ampicillin 1 gm/ Sodium Chloride 55 ml @ 110 mls/hr EVERY 6 HOURS IVPB 04/05/18 14:00 04/12/18 13:59 04/06/18 11:16 Aspirin (Ecotrin) 81 mg DAILY ORAL 04/03/18 09:00 05/03/18 08:59 04/06/18 09:33 Ciprofloxacin 100 ml @ 100 mls/hr Q12H IV 04/06/18 17:00 04/13/18 16:59 Citalopram Hydrobromide (celeXA) 40 mg BEDTIME ORAL 04/03/18 21:00 05/03/18 20:59 04/05/18 21:09 Clopidogrel Bisulfate (Plavix) 75 mg DAILY ORAL 04/03/18 09:00 05/03/18 08:59 04/06/18 09:33 Dextrose (Dextrose 50%) 25 ml Q30M PRN IV Hypoglycemia 04/02/18 21:00 05/02/18 20:59 Dextrose (Dextrose 50%) 50 ml Q30M PRN IV Hypoglycemia 04/02/18 21:00 05/02/18 20:59 Enalapril Maleate (Vasotec) 20 mg DAILY ORAL 04/03/18 09:00 05/03/18 08:59 04/06/18 09:34 Heparin Sodium (Porcine) (Heparin 5000 units/ml) 5,000 units EVERY 12 HOURS SUBQ 04/02/18 21:00 05/02/18 20:59 04/06/18 09:27 Metformin HCl (Glucophage) 500 mg BID ORAL 04/03/18 18:00 05/03/18 17:59 04/06/18 09:33 Olanzapine (ZyPREXA) 2.5 mg BEDTIME ORAL 04/05/18 21:00 05/05/18 20:59 04/05/18 21:09 Ondansetron HCl (Zofran) 4 mg Q6H PRN IVP Nausea & Vomiting 04/02/18 21:00 05/02/18 20:59 Sodium Chloride 1,000 ml @ 50 mls/hr Q20H IV 04/06/18 10:32 04/07/18 06:00 04/06/18 11:05 Frida Billings M.D. Apr 06, 2018 16:33
[2018-04-06] MEDS: OLANZapine 2.5mg tab ORAL SCH (21:04)
[2018-04-06] MEDS: Citalopram Hydrobromide 10mg Tab ORAL SCH (21:04)
[2018-04-07] VITALS: BP 129/64
[2018-04-07] MEDS: Ampicillin 1 GM in NS 55 ML IVPB SCH ×3 (00:01→12:35)
[2018-04-07 04:00] VITALS: BP 144/63
[2018-04-07 06:29] LABS: BASOPHILS % (AUTO) 0.8 % (0.0-2.0); EOSINOPHILS % (AUTO) 5.5 % (0.0-3.0); HEMATOCRIT 30.8 % (42.0-52.0); HEMOGLOBIN 9.6 G/DL (14.2-18.0); LYMPHOCYTES % (AUTO) 26.3 % (20.0-45.0); MEAN CORPUSCULAR VOLUME 71 FL (80-99); MONOCYTES % (AUTO) 8.2 % (1.0-10.0); NEUTROPHILS % (AUTO) 59.2 % (45.0-75.0); PLATELET COUNT 178 K/UL (150-450); RED BLOOD COUNT 4.36 M/UL (4.70-6.10); RED CELL DISTRIBUTION WIDTH 12.2 % (11.6-14.8); WHITE BLOOD COUNT 6.1 K/UL (4.8-10.8)
[2018-04-07 06:36] LABS: ANION GAP 7 mmol/L (5-15); BLOOD UREA NITROGEN 23 mg/dL (7-18); CALCIUM 8.5 MG/DL (8.5-10.1); CARBON DIOXIDE 28 MMOL/L (21-32); CHLORIDE 107 MMOL/L (98-107); CREATININE 1.3 MG/DL (0.55-1.30); POTASSIUM 4.3 MMOL/L (3.5-5.1); SODIUM 142 MMOL/L (136-145)
[2018-04-07 07:40] VITALS: BP 141/67
[2018-04-07] MEDS: Aspirin EC 81mg tab ORAL SCH (08:00)
[2018-04-07] MEDS: metFORMIN 500mg tab ORAL SCH (08:00)
[2018-04-07] MEDS: Heparin 5000 units/ml inj SUBQ SCH (08:06)
[2018-04-07] MEDS ORDERED: OLANZAPINE2.5 MG ORAL (09:48)
[2018-04-07] MEDS ORDERED: ACETAMINOPHEN325 M1 ORAL (09:48)
[2018-04-07] MEDS ORDERED: NORVASC5 MG ORAL (09:48)
[2018-04-07] MEDS ORDERED: ZOFRAN 4 MG4 MG/2 ML IVP (09:48)
[2018-04-07] MEDS ORDERED: ASPIRIN EC81 MG ORAL (09:48)
--- NOTE | 2018-04-07 09:52 | General Progress Note ---
Assessment/Plan Status: stable Assessment/Plan 1. UTI with hx of chronic em cath - on Ampicillin and Cipro for 12 more days. D/C to [facility] rehab today. 2. HTN - cont Amlodipine 5 mg one po daily and vasotec 20 mg one po daily. 3. DM II - on Metformin 500 mg one po bid 4. Depression - cont celexa 40 mg one daily 5. Dementia - Stable on zyprexa 2.5 mg one po qhs. 6. Hx of CAD - on Plavix 75 mg daily. 7. Dehydration - resolved. Subjective Date patient seen: Apr 07, 2018 Time patient seen: 08:45 Constitutional: Reports: weakness HEENT: Reports: no symptoms Cardiovascular: Reports: no symptoms Respiratory: Reports: no symptoms Gastrointestinal/Abdominal: Reports: no symptoms Genitourinary: Reports: no symptoms Neurologic/Psychiatric: Reports: no symptoms Endocrine: Reports: no symptoms Hematologic/Lymphatic: Reports: no symptoms Allergies: Coded Allergies: No Known Allergies (Unverified , 11/26/14) Subjective Patient is lying in bed. no sob or chest pain. No fever or Chills. no nausea or vomiting. Objective Last 24 Hour Vital Signs Date Time Temp Pulse Resp B/P (MAP) Pulse Ox O2 Delivery O2 Flow Rate FiO2 04/07/18 09:00 Room Air 04/07/18 08:01 141/67 04/07/18 08:00 61 141/67 04/07/18 07:40 96.2 61 18 141/67 (91) 92 04/07/18 04:00 97.7 58 18 144/63 (90) 93 04/07/18 00:00 98.0 66 18 129/64 (85) 95 04/06/18 21:00 Room Air 04/06/18 20:00 98.4 63 16 139/68 (91) 94 04/06/18 16:00 98.2 68 20 138/74 (95) 96 04/06/18 11:10 97.3 66 20 157/62 (93) 99 Intake and Output 04/06/18 04/07/18 18:59 06:59 Intake Total 1085 ml 510 ml Output Total 900 ml 850 ml Balance 185 ml -340 ml Intake Oral 480 ml IV Total 605 ml 510 ml Output Urine Total 900 ml 850 ml Laboratory Tests 04/07/18 05:35: White Blood Count 6.1, Red Blood Count 4.36L, Hemoglobin 9.6L, Hematocrit 30.8L , Mean Corpuscular Volume 71L, Mean Corpuscular Hemoglobin 22.1L, Mean Corpuscular Hemoglobin Concent 31.2L, Red Cell Distribution Width 12.2, Platelet Count 178, Mean Platelet Volume 6.0L, Neutrophils (%) (Auto) 59.2, Lymphocytes (%) (Auto) 26.3, Monocytes (%) (Auto) 8.2, Eosinophils (%) (Auto) 5.5H, Basophils (%) (Auto) 0.8, Sodium Level 142, Potassium Level 4.3, Chloride Level 107, Carbon Dioxide Level 28, Anion Gap 7, Blood Urea Nitrogen 23H, Creatinine 1.3, Estimat Glomerular Filtration Rate , Glucose Level 121H, Calcium Level 8.5 Height (Feet): 5 Height (Inches): 0.00 Weight (Pounds): 138 General Appearance: no apparent distress, alert Neck: non-tender, supple Cardiovascular: normal rate, regular rhythm Respiratory/Chest: chest wall non-tender, lungs clear, normal breath sounds Abdomen: normal bowel sounds, non tender, soft Extremities: normal range of motion, non-tender Edema: no edema noted Arm (L), no edema noted Arm (R), no edema noted Leg (L), no edema noted Leg (R), no edema noted Pedal (L), no edema noted Pedal (R), no edema noted Generalized Neurologic: alert, responsive Skin: warm/dry Lymphatic: normal anterior cervical (L), normal anterior cervical (R), normal posterior cervical (L), normal posterior cervical (R), normal submandibular (L) , normal submandibular (R), normal supraclavicular (L), normal supraclavicular ( R), normal axillary (L), normal axillary (R), normal inguinal (L), normal inguinal (R), normal other Suad Loving MD Apr 07, 2018 09:52
[2018-04-07] MEDS ORDERED: CIPRO I.V.400 MG/201 IV (10:03)
[2018-04-07] MEDS ORDERED: AMPICILLIN2 GM IV (10:03)
[2018-04-07 12:33] VITALS: BP 149/65
--- NOTE | 2018-04-07 17:18 | Infectious Diseases Prog Note ---
Assessment/Plan Problems: (1) Catheter-associated urinary tract infection Assessment & Plan: final urine culture grew enterococcus faecalis resistant to vancomycin , and pseudomonas aeruginosa with Enterobacter cloacae . continue ampicillin and ciprofloxacin for two weeks total . continue local em catheter care and change as needed (2) Dehydration Assessment & Plan: continue IVF for hydration , monitor electrolytes (3) Encephalopathy acute Assessment & Plan: due to the above , continue antibiotics and hydration , monitor mental status (4) ARF (acute renal failure) Assessment & Plan: due to the above, continue hydration , with close monitor of renal function, avoid nephrotoxics Subjective Constitutional: Reports: no symptoms HEENT: Reports: no symptoms Respiratory: Reports: no symptoms Breasts: Reports: no symptoms Cardiovascular: Reports: no symptoms Gastrointestinal/Abdominal: Reports: no symptoms Genitourinary: Reports: no symptoms Neurologic: Reports: no symptoms Psychiatric: Reports: no symptoms Skin: Reports: no symptoms Endocrine: Reports: no symptoms Hematologic: Reports: no symptoms Musculoskeletal: Reports: no symptoms Allergies: Coded Allergies: No Known Allergies (Unverified , 11/26/14) Subjective he was sleeping but responds to verbal commands, more awake and alert, NAD . Objective Vital Signs Last 24 Hour Vital Signs Date Time Temp Pulse Resp B/P (MAP) Pulse Ox O2 Delivery O2 Flow Rate FiO2 04/07/18 12:33 98.4 55 20 149/65 (93) 98 04/07/18 09:00 Room Air 04/07/18 08:01 141/67 04/07/18 08:00 61 141/67 04/07/18 07:40 96.2 61 18 141/67 (91) 92 04/07/18 04:00 97.7 58 18 144/63 (90) 93 04/07/18 00:00 98.0 66 18 129/64 (85) 95 04/06/18 21:00 Room Air 04/06/18 20:00 98.4 63 16 139/68 (91) 94 Height (Feet): 5 Height (Inches): 0.00 Weight (Pounds): 138 General Appearance: WD/WN, no acute distress HEENT: normocephalic, atraumatic, anicteric, mucous membranes moist, PERRL Respiratory/Chest: chest wall non-tender, lungs clear, normal breath sounds, no respiratory distress, no accessory muscle use Cardiovascular: normal peripheral pulses, normal rate, regular rhythm, no gallop/murmur, no JVD Abdomen: normal bowel sounds, soft, non tender, no organomegaly, non distended , no mass, no scars Genitourinary: normal external genitalia Extremities: no cyanosis, no clubbing Skin: no rash, no lesions, no ulcers Neurologic/Psychiatric: alert, responsive Lymphatic: no neck adenopathy, no groin adenopathy Laboratory Tests Test 04/07/18 05:35 White Blood Count 6.1 K/UL (4.8-10.8) Red Blood Count 4.36 M/UL (4.70-6.10) L Hemoglobin 9.6 G/DL (14.2-18.0) L Hematocrit 30.8 % (42.0-52.0) L Mean Corpuscular Volume 71 FL (80-99) L Mean Corpuscular Hemoglobin 22.1 PG (27.0-31.0) L Mean Corpuscular Hemoglobin Concent 31.2 G/DL (32.0-36.0) L Red Cell Distribution Width 12.2 % (11.6-14.8) Platelet Count 178 K/UL (150-450) Mean Platelet Volume 6.0 FL (6.5-10.1) L Neutrophils (%) (Auto) 59.2 % (45.0-75.0) Lymphocytes (%) (Auto) 26.3 % (20.0-45.0) Monocytes (%) (Auto) 8.2 % (1.0-10.0) Eosinophils (%) (Auto) 5.5 % (0.0-3.0) H Basophils (%) (Auto) 0.8 % (0.0-2.0) Sodium Level 142 MMOL/L (136-145) Potassium Level 4.3 MMOL/L (3.5-5.1) Chloride Level 107 MMOL/L (98-107) Carbon Dioxide Level 28 MMOL/L (21-32) Anion Gap 7 mmol/L (5-15) Blood Urea Nitrogen 23 mg/dL (7-18) H Creatinine 1.3 MG/DL (0.55-1.30) Estimat Glomerular Filtration Rate mL/min (>60) Glucose Level 121 MG/DL (74-106) H Calcium Level 8.5 MG/DL (8.5-10.1) Frida Billings M.D. Apr 07, 2018 17:18
--- NOTE | 2018-04-13 13:07 | Discharge Summary ---
Discharge Summary Discharge Summary _ DATE OF ADMISSION: 04/02/2018 DATE OF DISCHARGE: 04/07/2018 REASON FOR ADMISSION: 87 years old male with past medical history of hypertension, diabetes, coronary artery disease, Alzheimer dementia, depression, anxiety, was sent from the assisted living for altered mental status. No reports of fever or chills. No shortness of breath no chest pain. No nausea or vomiting. No abdominal pain. Patient had a history of indwelling Patricio catheter for few years. Upon evaluation vital signs were stable. Patient required supplemental oxygen initially; pulse oximetry 97% on 4 L of oxygen via nasal cannula. Laboratory workup revealed no leukocytosis ,hemoglobin 12.4 ,hematocrit 39.2, MCV 71. Chemistry revealed evidence of renal insufficiency with BUN 38 and creatinine 1.8. Lactic acid 2.2. Glucose 171. Troponin negative. Electrolytes and LFTs stable. Albumin 3.9. Urinalysis with +3 leukocyte esterase, +3 protein, +4 blood, few bacteria. Chest x-ray revealed nonspecific bibasilar opacities likely atelectasis. Superimposed infectious or inflammatory process was not excluded. Probable trace left pleural effusion. CT of the head revealed no acute intracranial pathology. Patient admitted with diagnoses of acute encephalopathy, urinary tract infection with history of indwelling catheter, lactic acidosis, acute on chronic renal insufficiency, hypertension ,diabetes ,depression dementia with history of agitation. CONSULTANTS: ID specialist Dr. Billings [facility] COURSE: Patient admitted and started on the IV hydration and empiric antibiotics. ID consult was requested. Renal parameters and electrolytes were closely monitored. Electrolytes corrected as needed, and nephrotoxins were avoided. Urine culture revealed Vancomycin-resistant enterococci, Pseudomonas aeruginosa and Enterobacter. Infectious disease specialist optimized antibiotic regimen which which need to be continued as outpatient to complete the course. Blood pressure was managed with calcium channel poncho and TAMARA inhibitor. Dual antiplatelet therapy with aspirin and Plavix was continued. Blood sugar was managed with metformin. Sliding scale of insulin was on board as needed. Celexa was continued. Zyprexa provided at nighttime for control of agitation. Patient was jose antonio to be weaned from oxygen; pulse oximetry stable on room air. Patient clinically improved : mental status back to baseline ,acute renal failure resolved with IV hydration, BUN from 30 down to 23 and creatinine from 1.8 down to 1.3. Patient was stable for discharge to the long term facility; complete antibiotic course at the facility as recommended by ID specialist. FINAL DIAGNOSES: Acute encephalopathy likely secondary to infection Catheter associated urinary tract infection with VRE, Pseudomonas and Enterobacter Dehydration Acute on chronic renal failure secondary to dehydration Hypertension History of coronary artery disease Diabetes mellitus type 2 Dementia Depression DISCHARGE MEDICATIONS: See Medication Reconciliation list. DISCHARGE INSTRUCTIONS: Patient was discharged to the long term facility-[facility]. Follow up with medical doctor at the facility. I have been assigned to dictate discharge summary for this account. I was not involved in the patient's management. Membranes were moist. Paige Rai NP Apr 13, 2018 13:07
--- NOTE | 2018-04-14 04:15 | Discharge Summary ---
DATE OF ADMISSION: 04/02/2018 DATE OF DISCHARGE: 04/07/2018 HOSPITAL COURSE: This is an 87-year-old [place]ol[place] male, who was brought in from the assisted living for a complaint of altered mental status and he has a history of hypertension, diabetes, coronary artery disease, dementia, depression, and anxiety. The patient has also history of an indwelling Patricio catheter for few years and he gets an occasional recurrent urinary tract infection that requires hospitalization. No shortness of breath or chest pain. No fever or chills. No abdominal pain. The patient was admitted, was seen in the emergency room, was found to have urinary tract infection, and was started on intravenous antibiotics by ID, Dr. Billings. The patient grew Enterococcus fasciitis and Pseudomonas aeruginosa with Enterobacter cloacae in the urine and was started on ampicillin and Cipro for 12 days as an outpatient at the [facility]. FINAL DIAGNOSES: 1. Urinary tract infection with history of chronic indwelling Patricio catheter. 2. Hypertension. 3. Diabetes type 2. 4. Depression. 5. Dementia. 6. History of coronary artery disease. 7. Dehydration. 8. Encephalopathy due to urinary tract infection. DISCHARGE MEDICATIONS: 1. Acetaminophen 650 mg q.6 hours p.r.n. 2. Norvasc 5 mg p.o. daily. 3. Aspirin 81 mg p.o. daily. 4. Zyprexa 2.5 mg at bedtime. 5. Zofran 4 mg q.6 hours p.r.n. 6. Ampicillin 1 gram intravenous q.6 hours for 12 days. 7. Ciprofloxacin 200 mg intravenous q.12 hours for 12 days. 8. Celexa 40 mg nightly. 9. Plavix 75 mg daily. 10. Enalapril 20 mg daily. 11. Vitamin D 50,000 units 1 p.o. weekly. 12. Metformin 500 p.o. b.i.d. 13. MiraLAX p.o. at bedtime and p.r.n. DISPOSITION: The patient will be transferred to [facility] for intravenous antibiotic and I will follow the patient there. Suad Loving M.D. DR: GABBI JOB#: [id number] CC:
== END 2018-04-07 12:45 | DRG 699 ==
LOC: EDBD 16:20 → EMR 16:50 → 4E 17:25 → EDBEDREQ 18:08 → 4E 21:06
DX: T83.511A Infection and inflammatory reaction due to indwelling urethral catheter, initial encounter (principal); N17.9 Acute kidney failure, unspecified; G93.49 Other encephalopathy; B96.89 Other specified bacterial agents as the cause of diseases classified elsewhere; B95.2 Enterococcus as the cause of diseases classified elsewhere; B96.5 Pseudomonas (aeruginosa) (mallei) (pseudomallei) as the cause of diseases classified elsewhere; Y84.6 Urinary catheterization as the cause of abnormal reaction of the patient, or of later complication, without mention of misadventure at the time of the procedure; N39.0 Urinary tract infection, site not specified; E86.0 Dehydration; G30.9 Alzheimer's disease, unspecified; F02.80 Dementia in other diseases classified elsewhere, unspecified severity, without behavioral disturbance, psychotic disturbance, mood disturbance, and anxiety; I25.10 Atherosclerotic heart disease of native coronary artery without angina pectoris; F32.9 Major depressive disorder, single episode, unspecified; F41.9 Anxiety disorder, unspecified; I13.10 Hypertensive heart and chronic kidney disease without heart failure, with stage 1 through stage 4 chronic kidney disease, or unspecified chronic kidney disease; E11.22 Type 2 diabetes mellitus with diabetic chronic kidney disease; N18.9 Chronic kidney disease, unspecified; Z88.1 Allergy status to other antibiotic agents
CPT/HCPCS: 36415; 70450; 71045; 80048; 80053; 81003; 82550; 82553; 82962; 83605; 84484; 85025; 87040; 87081; 87086; 87181; 96361; 96365; 99285; J1815

== ENCOUNTER 2018-07-10 12:00 | Inpatient (IN) | payer MEDICARE, MEDICAID ==
[~2018-07-10] VITALS: Ht 160 cm; Wt 62.3 kg
[~2018-07-10 12:00] MED LIST changes: +ACETAMINOPHEN325 M1 ORAL; +AMPICILLIN2 GM IV; +CIPRO I.V.400 MG/201 IV; +LEVOFLOXACIN500 MG ORAL; +OLANZAPINE2.5 MG ORAL; +POLYETHYLENE GL17 GM ORAL; +VITAMIN D22000 UNIT PO; +ZOFRAN 4 MG4 MG/2 ML IVP
--- NOTE | 2018-07-10 12:13 | NUR ---
ED Nurse Note: patient brought in by ambulance from [facility] PAtient c/o abd pain and vomit x1 this morning. pt with thick sputum production and O2sat 90% on R/A. improves to 93%with O2 2L NC.
[2018-07-10 12:57] VITALS: BP 118/62
[2018-07-10 13:43] LABS: HEMATOCRIT 41.7 % (42.0-52.0); HEMOGLOBIN 12.9 G/DL (14.2-18.0); MEAN CORPUSCULAR VOLUME 72 FL (80-99); PLATELET COUNT 241 K/UL (150-450); RED BLOOD COUNT 5.81 M/UL (4.70-6.10); RED CELL DISTRIBUTION WIDTH 12.8 % (11.6-14.8); WHITE BLOOD COUNT 12.2 K/UL (4.8-10.8)
[2018-07-10 14:07] LABS: ANION GAP 11 mmol/L (5-15); BLOOD UREA NITROGEN 37 mg/dL (7-18); CALCIUM 10.1 MG/DL (8.5-10.1); CARBON DIOXIDE 25 MMOL/L (21-32); CHLORIDE 101 MMOL/L (98-107); CREATININE 1.7 MG/DL (0.55-1.30); POTASSIUM 4.7 MMOL/L (3.5-5.1); SODIUM 137 MMOL/L (136-145)
[2018-07-10 14:07] LABS: APPEARANCE,URINE SLIGHTLY CLOUDY; BILIRUBIN, URINE NEGATIVE (NEGATIVE); COLOR,URINE PALE YELLOW; GLUCOSE, URINE (UA) NEGATIVE (NEGATIVE); KETONES,URINE 2+ (NEGATIVE); LEUKOCYTE ESTERASE ,URINE 3+ (NEGATIVE); NITRITE,URINE POSITIVE (NEGATIVE); PH,URINE 5 (4.5-8.0); PROTEIN,URINE 4+ (NEGATIVE); UROBILINOGEN,URINE NORMAL MG/DL (0.0-1.0)
[2018-07-10 14:19] LABS: ALANINE AMINOTRANSFERASE 15 U/L (12-78); ALBUMIN 4.3 G/DL (3.4-5.0); ALBUMIN/GLOBULIN RATIO 1.1 (1.0-2.7); ALKALINE PHOSPHATASE 113 U/L (46-116); ASPARTATE AMINO TRANSFERASE 15 U/L (15-37); BILIRUBIN,TOTAL 0.4 MG/DL (0.2-1.0); CKMB 1.3 NG/ML (0.0-3.6); CREATINE KINASE 53 U/L (26-308)
[2018-07-10] MEDS ORDERED: Vancomycin 1.5gm Premix 275 ML IVPB SCH (14:30)
[2018-07-10] MEDS ORDERED: Ertapenem 1 GM in NS 55 ML IVPB ONE (14:30)
[2018-07-10] MEDS ORDERED: Ampicillin 1 GM in NS 55 ML IVPB ONE (14:30)
--- NOTE | 2018-07-10 14:34 | Emergency Room Report ---
History of Present Illness General Chief Complaint: Abdominal Pain Source: Patient, Medical Record, EMS, PMD Present Illness HPI Patient is an 87-year-old male who presented after increased abdominal pain. And vomiting. Patient had chronic indwelling Patricio catheter. Patient was noted to have previous episodes where he had a urinary tract infection in the past. Patient was previously noted to have a multidrug-resistant organism. He was sent in from care home after increased vomiting. Patient was noted to have increased lethargy. Allergies: Coded Allergies: No Known Allergies (Unverified , 11/26/14) Patient History Past Medical History: see triage record Past Surgical History: unable to obtain Reviewed Nursing Documentation: PMH: Agreed; PSxH: Agreed Nursing Documentation-PMH Past Medical History: No History, Except For Hx Cardiac Problems: Yes Hx Hypertension: Yes Hx Diabetes: Yes Hx Cancer: No Hx Gastrointestinal Problems: No History Of Psychiatric Problem: Yes - depression, dementia, anxiety Hx Neurological Problems: Yes Hx Dementia: Yes Review of Systems All Other Systems: limited - by mental status Physical Exam Vital Signs Date Time Temp Pulse Resp B/P (MAP) Pulse Ox O2 Delivery O2 Flow Rate FiO2 07/10/18 12:03 98.8 70 20 136/60 93 Nasal Cannula 2.0 Sp02 EP Interpretation: reviewed, normal General Appearance: normal inspection, alert, mild distress, Chronically Ill Head: atraumatic ENT: normal ENT inspection, hearing grossly normal, normal voice Neck: normal inspection, full range of motion, supple, no bony tend Respiratory: normal inspection, no respiratory distress, no retraction, no wheezing Cardiovascular #1: regular rate, rhythm, no edema Gastrointestinal: normal inspection, normal bowel sounds, non tender, soft, no guarding, no hernia Genitourinary: no CVA tenderness Musculoskeletal: normal inspection, back normal, normal range of motion Neurologic: alert, responsive, motor weakness Psychiatric: mood/affect normal Skin: normal inspection, normal color, no rash Medical Decision Making Diagnostic Impression: Primary Impression: Altered mental status Additional Impressions: Catheter-associated urinary tract infection Renal insufficiency ER Course Presented for altered mental status. Differential diagnosis include was not limited to pneumonia, dehydration, urinary tract infection, incarcerated hernia among others. Because of complexity of patient's case laboratory testing and imaging studies were ordered. Laboratory testing was notable for elevated white blood count as well as elevated lactic acid level. Urinary tract infection was noted on urinalysis. Patient was noted to have a multidrug- resistant organism on prior urine culture patient was started on IV antibiotics. He was started on IV fluids.Patient was discussed with Dr. Sweeney for inpatient management Labs Test 07/10/18 13:02 07/10/18 13:33 White Blood Count 12.2 K/UL (4.8-10.8) Red Blood Count 5.81 M/UL (4.70-6.10) Hemoglobin 12.9 G/DL (14.2-18.0) Hematocrit 41.7 % (42.0-52.0) Mean Corpuscular Volume 72 FL (80-99) Mean Corpuscular Hemoglobin 22.1 PG (27.0-31.0) Mean Corpuscular Hemoglobin Concent 30.8 G/DL (32.0-36.0) Red Cell Distribution Width 12.8 % (11.6-14.8) Platelet Count 241 K/UL (150-450) Mean Platelet Volume 6.1 FL (6.5-10.1) Neutrophils (%) (Auto) % (45.0-75.0) Lymphocytes (%) (Auto) % (20.0-45.0) Monocytes (%) (Auto) % (1.0-10.0) Eosinophils (%) (Auto) % (0.0-3.0) Basophils (%) (Auto) % (0.0-2.0) Differential Total Cells Counted 100 Neutrophils % (Manual) 88 % (45-75) Lymphocytes % (Manual) 10 % (20-45) Monocytes % (Manual) 2 % (1-10) Eosinophils % (Manual) 0 % (0-3) Basophils % (Manual) 0 % (0-2) Band Neutrophils 0 % (0-8) Platelet Estimate Adequate Platelet Morphology Normal Red Blood Cell Morphology Normal Microcytosis 1+ Sodium Level 137 MMOL/L (136-145) Potassium Level 4.7 MMOL/L (3.5-5.1) Chloride Level 101 MMOL/L (98-107) Carbon Dioxide Level 25 MMOL/L (21-32) Anion Gap 11 mmol/L (5-15) Blood Urea Nitrogen 37 mg/dL (7-18) Creatinine 1.7 MG/DL (0.55-1.30) Estimat Glomerular Filtration Rate mL/min (>60) Glucose Level 164 MG/DL (74-106) Lactic Acid Level 2.40 mmol/L (0.4-2.0) Calcium Level 10.1 MG/DL (8.5-10.1) Total Bilirubin 0.4 MG/DL (0.2-1.0) Aspartate Amino Transf (AST/SGOT) 15 U/L (15-37) Alanine Aminotransferase (ALT/SGPT) 15 U/L (12-78) Alkaline Phosphatase 113 U/L (46-116) Total Creatine Kinase 53 U/L (26-308) Creatine Kinase MB 1.3 NG/ML (0.0-3.6) Creatine Kinase MB Relative Index 2.4 Troponin I 0.000 ng/mL (0.000-0.056) Pro-B-Type Natriuretic Peptide 657 pg/mL (0-125) Total Protein 8.1 G/DL (6.4-8.2) Albumin 4.3 G/DL (3.4-5.0) Globulin 3.8 g/dL Albumin/Globulin Ratio 1.1 (1.0-2.7) Urine Color Pale yellow Urine Appearance Slightly cloudy Urine pH 5 (4.5-8.0) Urine Specific [place] 1.015 (1.005-1.035) Urine Protein 4+ (NEGATIVE) Urine Glucose (UA) Negative (NEGATIVE) Urine Ketones 2+ (NEGATIVE) Urine Blood 4+ (NEGATIVE) Urine Nitrite Positive (NEGATIVE) Urine Bilirubin Negative (NEGATIVE) Urine Urobilinogen Normal MG/DL (0.0-1.0) Urine Leukocyte Esterase 3+ (NEGATIVE) Urine RBC 10-15 /HPF (0 - 0) Urine WBC 30-40 /HPF (0 - 0) Urine Squamous Epithelial Cells Occasional /LPF Urine Bacteria Moderate /HPF (NONE) Last Vital Signs Date Time Temp Pulse Resp B/P (MAP) Pulse Ox O2 Delivery O2 Flow Rate FiO2 07/10/18 12:57 98.8 76 23 118/62 94 Nasal Cannula 2.0 Status: unchanged Disposition: ADMITTED INPATIENT Condition: Stable Link Carlson MD Jul 10, 2018 14:34
[2018-07-10] MEDS ORDERED: Vancomycin 1.5 GM in D5W 275 ML IVPB SCH (14:44)
--- NOTE | 2018-07-10 17:00 | Infectious Diseases Prog Note ---
Assessment/Plan Problems: (1) Catheter-associated urinary tract infection Assessment & Plan: with H/O infection due to MRSA, E.faecalis, Pseudomonas aeruginosa and proteus mirabilis, will send urine culture from his em and start zosyn empirically (2) Sepsis Assessment & Plan: due to the above , start vancomycin and zosyn pending culture (3) ARF (acute renal failure) Assessment & Plan: suspect dehydration, continue IVF for hydration and renally dosed meds , monitor UOP (4) Encephalopathy acute Assessment & Plan: suspect due to the above, continue wide spectrum antibiotics and hydration, monitor in tele Subjective Allergies: Coded Allergies: No Known Allergies (Unverified , 11/26/14) Objective Vital Signs Last 24 Hour Vital Signs Date Time Temp Pulse Resp B/P (MAP) Pulse Ox O2 Delivery O2 Flow Rate FiO2 07/10/18 12:57 98.8 76 23 118/62 94 Nasal Cannula 2.0 07/10/18 12:56 70 20 Nasal Cannula 2.0 07/10/18 12:03 98.8 70 20 136/60 93 Nasal Cannula 2.0 Height (Feet): 5 Height (Inches): 3.00 Weight (Pounds): 155 Microbiology Date/Time Source Procedure Growth Status 07/10/18 13:20 Nasal Nares Influenza Types A,B Antigen (LAURA) - Final Complete Laboratory Tests Test 07/10/18 13:02 07/10/18 13:33 White Blood Count 12.2 K/UL (4.8-10.8) H Red Blood Count 5.81 M/UL (4.70-6.10) Hemoglobin 12.9 G/DL (14.2-18.0) L Hematocrit 41.7 % (42.0-52.0) L Mean Corpuscular Volume 72 FL (80-99) L Mean Corpuscular Hemoglobin 22.1 PG (27.0-31.0) L Mean Corpuscular Hemoglobin Concent 30.8 G/DL (32.0-36.0) L Red Cell Distribution Width 12.8 % (11.6-14.8) Platelet Count 241 K/UL (150-450) Mean Platelet Volume 6.1 FL (6.5-10.1) L Neutrophils (%) (Auto) % (45.0-75.0) Lymphocytes (%) (Auto) % (20.0-45.0) Monocytes (%) (Auto) % (1.0-10.0) Eosinophils (%) (Auto) % (0.0-3.0) Basophils (%) (Auto) % (0.0-2.0) Differential Total Cells Counted 100 Neutrophils % (Manual) 88 % (45-75) H Lymphocytes % (Manual) 10 % (20-45) L Monocytes % (Manual) 2 % (1-10) Eosinophils % (Manual) 0 % (0-3) Basophils % (Manual) 0 % (0-2) Band Neutrophils 0 % (0-8) Platelet Estimate Adequate Platelet Morphology Normal Red Blood Cell Morphology Normal Microcytosis 1+ Sodium Level 137 MMOL/L (136-145) Potassium Level 4.7 MMOL/L (3.5-5.1) Chloride Level 101 MMOL/L (98-107) Carbon Dioxide Level 25 MMOL/L (21-32) Anion Gap 11 mmol/L (5-15) Blood Urea Nitrogen 37 mg/dL (7-18) H Creatinine 1.7 MG/DL (0.55-1.30) H Estimat Glomerular Filtration Rate mL/min (>60) Glucose Level 164 MG/DL (74-106) H Lactic Acid Level 2.40 mmol/L (0.4-2.0) H Calcium Level 10.1 MG/DL (8.5-10.1) Total Bilirubin 0.4 MG/DL (0.2-1.0) Aspartate Amino Transf (AST/SGOT) 15 U/L (15-37) Alanine Aminotransferase (ALT/SGPT) 15 U/L (12-78) Alkaline Phosphatase 113 U/L (46-116) Total Creatine Kinase 53 U/L (26-308) Creatine Kinase MB 1.3 NG/ML (0.0-3.6) Creatine Kinase MB Relative Index 2.4 Troponin I 0.000 ng/mL (0.000-0.056) Pro-B-Type Natriuretic Peptide 657 pg/mL (0-125) H Total Protein 8.1 G/DL (6.4-8.2) Albumin 4.3 G/DL (3.4-5.0) Globulin 3.8 g/dL Albumin/Globulin Ratio 1.1 (1.0-2.7) Urine Color Pale yellow Urine Appearance Slightly cloudy Urine pH 5 (4.5-8.0) Urine Specific [place] 1.015 (1.005-1.035) Urine Protein 4+ (NEGATIVE) H Urine Glucose (UA) Negative (NEGATIVE) Urine Ketones 2+ (NEGATIVE) H Urine Blood 4+ (NEGATIVE) H Urine Nitrite Positive (NEGATIVE) H Urine Bilirubin Negative (NEGATIVE) Urine Urobilinogen Normal MG/DL (0.0-1.0) Urine Leukocyte Esterase 3+ (NEGATIVE) H Urine RBC 10-15 /HPF (0 - 0) H Urine WBC 30-40 /HPF (0 - 0) H Urine Squamous Epithelial Cells Occasional /LPF Urine Bacteria Moderate /HPF (NONE) H Current Medications Medications (Trade) Dose Ordered Sig/Charlene Route PRN Reason Start Time Stop Time Status Last Admin Dose Admin Vancomycin HCl (Vanco rx to dose) 1 ea DAILY PRN MISC Per rx protocol 07/10/18 17:00 08/09/18 16:59 UNV Vancomycin HCl 1.5 gm/Dextrose 275 ml @ 137.5 mls/ hr Q24H IVPB 07/10/18 14:44 07/10/18 17:00 07/10/18 15:37 Frida Billings M.D. Jul 10, 2018 17:00
[2018-07-10 18:09] VITALS: BP 131/62
--- NOTE | 2018-07-10 19:16 | NUR ---
ED Nurse Note: report given to Priya JOINER at 4E
--- NOTE | 2018-07-10 19:17 | NUR ---
ED Nurse Note: Per Priya RN in 4E, the bed is not ready, send up patient in 15 minutes, endorsed to Mehreen quintero.
--- NOTE | 2018-07-10 19:42 | NUR ---
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
--- NOTE | 2018-07-10 20:44 | NUR ---
NURSE NOTES: RECEIVED PATIENT FROM ER, GOT REPORT FROM [facility]. PATIENT IN BED, AWAKE. IV IN PLACE, PATENT. SUPRAPUBIC NOTED WITH DRAINAGE BAG. NO S/S PAIN OR DISTRESS NOTED. REVIEWED BELONGINGS LIST, PATIENT UNABLE TO SIGN, REVIEWED WITH SECOND RN. BED IN LOWEST POSITION, CALL LIGHT WITHIN REACH, BED ALARM ON. SKIN ASSESSMENT DONE, NO PRESSURE ULCERS OR OPEN WOUNDS NOTED. WILL CONTINUE TO MONITOR. CALLED DR. YOON FOR ADMISSION ORDERS, AWAITING RESPONSE.
[2018-07-10 20:59] VITALS: BP 140/79
--- NOTE | 2018-07-10 21:00 | NUR ---
NURSE NOTES: DAUGHTER AT BEDSIDE AND PER DAUGHTER, PATIENT IS STILL CONFUSED ONLY ALERT TO NAME. WILL CONTINUE TO MONITOR.
[2018-07-10] MEDS ORDERED: Miralax 17gm pkt ORAL PRN (21:45)
[2018-07-10] MEDS: Piperacillin/Tazobactam 3.375 GM in NS 110 ML IVPB SCH (23:09)
[2018-07-11] VITALS (7 sets, daily range): BP systolic 116–151; BP diastolic 50–79
--- NOTE | 2018-07-11 01:16 | History and Physical Report ---
DATE OF ADMISSION: 07/10/2018 CHIEF COMPLAINT: Altered mental status and vomiting at the assisted living. HISTORY OF PRESENT ILLNESS: This is an 87-year-old male who came in from assisted living called, [facility] for complaint of abdominal pain and vomiting. The patient had UTI as outpatient and was started on p.o. Levaquin; however, did not respond to the antibiotic and started vomiting today and was decided to bring the patient in for evaluation in the ER. The patient was found to have another urinary tract infection. He has a history of multidrug-resistant organism for his UTI previously. He also has a history of recurrent UTI due to chronic indwelling urinary catheter. PAST MEDICAL HISTORY: Includes history of indwelling urinary catheter placement, history of urinary tract infection recurrent, history of hypertension, diabetes, and dementia. PAST SURGICAL HISTORY: History of indwelling cath. No history of surgeries. SOCIAL HISTORY: The patient lives at the assisted living. No history of smoking or alcohol use. FAMILY HISTORY: Noncontributory. REVIEW OF SYSTEMS: Negative except for HPI. PHYSICAL EXAMINATION: VITAL SIGNS: Include temperature of 98.8, pulse 70, respirations 20, blood pressure 136/60, O2 saturation is 93% on 2 L. GENERAL APPEARANCE: Alert, slightly distress. HEENT: Normocephalic, normochromic. Extraocular muscles intact. Throat is clear. NECK: Supple. No lymphadenopathy. LUNGS: Clear to auscultation bilaterally. CARDIOVASCULAR: Regular rate and rhythm. No murmur or gallop. ABDOMEN: Soft. Slight tenderness generalized. No guarding and positive bowel sounds. GENITOURINARY: No CVA tenderness. BACK: Able to move without point tenderness. NEUROLOGICAL: Alert. Responds to commands. SKIN: No rash. LABORATORY AND DIAGNOSTIC DATA: Include WBC 12.2, hemoglobin 12.9, hematocrit 41.7, platelet count is 241, neutrophils 88, lymphocytes 10. Sodium 137, potassium 4.7, bicarb is 101, BUN is 37, creatinine 1.7, glucose 164. Lactic acid is 2.4. Calcium 10.1. AST 15, ALT 15, alkaline phosphatase 113. BNP 657. Troponin 0. UA showed +4 urine protein, +2 urine ketone, +4 blood, positive nitrite, urine rbc's 10 to 15, urine wbc's 30 to 40, leukocyte esterase +3, moderate urine bacteria with few epithelial cells. IMPRESSION: 1. Catheter-associated urinary tract infection. The patient will be admitted for urinary tract infection and we will start IV antibiotic, possibly Zosyn. The patient had previous history of MRSA, Enterococcus faecalis, Pseudomonas, and Proteus infection in the urine previously. 2. Possible sepsis. We will continue Zosyn and Vanco and follow the blood cultures. 3. Acute renal failure secondary to dehydration. We will hydrate the patient and We will follow the renal function. 4. Toxic encephalopathy. We will continue IV antibiotic and monitor the patient while inpatient. 5. Hypertension. We will continue home medication. 6. Diabetes. We will hold metformin due to creatinine 1.7. We will start the patient on insulin sliding scale at this point in the hospital. 7. Dementia, possible Alzheimer dementia. We will restart the patient on home medication of Zyprexa 2.5 at night. 8. History of depression. We will restart the patient on home medication, Celexa 40 mg at night. 9. History of coronary artery disease. We will restart the patient on Plavix 75 mg daily. The patient will be admitted for minimum of 2-night stay for diagnosis of urinary tract infection and possible sepsis. Suad Loving M.D. DR: JOANNA JOB#: [id number] CC: EMILY
--- NOTE | 2018-07-11 02:44 | NUR ---
NURSE NOTES: CALLED [facility] AND SPOKE WITH FE REGARDING PATIENT'S FLU AND PNA VACCINES AND WAS TOLD TO CALL BACK IN THE AM AT 0800.
[2018-07-11] MEDS: Piperacillin/Tazobactam 3.375 GM in NS 110 ML IVPB SCH ×3 (06:54→21:30)
[2018-07-11] MEDS: NovoLOG Insulin Flexpen SUBQ SCH ×4 (06:56→22:16)
--- NOTE | 2018-07-11 07:25 | NUR ---
HAND-OFF: Report given to KARISHMA SARAH RN. Addendum: 07/11/18 at 0749 by CLIFFORD DUMONT RN RN SUPRAPUBIC DRESSING NOTED TO BE WET, DRESSING CHANGED. NOW DRY AND INTACT. ENDORSED TO AM NURSE TO MONITOR FOR LEAKING.
--- NOTE | 2018-07-11 07:30 | NUR ---
nurse notes received patient resting comfortable in bed, Patient awake,no sign of distress, denies pain or discomfort, IVF on going, suprapubic in placed dressing dry and intact,4 P's in progress call light w/n reach, plan of care done needs reinforcement, will continue to monitor patient condition ingrid mcrae
[2018-07-11] MEDS: Aspirin EC 81mg tab ORAL SCH (08:41)
[2018-07-11 09:41] LABS: HEMATOCRIT 33.6 % (42.0-52.0); HEMOGLOBIN 10.4 G/DL (14.2-18.0); LYMPHOCYTES % (AUTO) 13.7 % (20.0-45.0); MEAN CORPUSCULAR VOLUME 72 FL (80-99); MONOCYTES % (AUTO) 4.2 % (1.0-10.0); NEUTROPHILS % (AUTO) 79.2 % (45.0-75.0); PLATELET COUNT 225 K/UL (150-450); RED BLOOD COUNT 4.67 M/UL (4.70-6.10); RED CELL DISTRIBUTION WIDTH 12.8 % (11.6-14.8); WHITE BLOOD COUNT 8.4 K/UL (4.8-10.8)
[2018-07-11 09:46] LABS: ANION GAP 8 mmol/L (5-15); BLOOD UREA NITROGEN 29 mg/dL (7-18); CALCIUM 8.9 MG/DL (8.5-10.1); CARBON DIOXIDE 27 MMOL/L (21-32); CHLORIDE 107 MMOL/L (98-107); CREATININE 1.5 MG/DL (0.55-1.30); POTASSIUM 4.3 MMOL/L (3.5-5.1); SODIUM 142 MMOL/L (136-145)
--- NOTE | 2018-07-11 11:31 | Diagnostic Imaging Report ---
Indication: Shortness of breath Technique: One view of the chest Comparison: 04/02/2018 Findings: Inspiration is suboptimal. There are bilateral basilar atelectatic changes. Left costophrenic angle is blunted, small effusion may be present. The heart is upper limits normal in size. The aorta is tortuous and calcified . Findings are similar to the previous exam Impression: Hypoventilatory exam with bilateral basilar atelectasis Possible small left pleural effusion
--- NOTE | 2018-07-11 11:32 | NUR ---
CONCRETERZOOGLER 87 Y/O MALE ANGELY FROM [facility] CC:ABDOMINAL PAIN SI:UTI VS: BP 136/60, P 70, T 98.8, RR20, SpO2 93 on 2.0 NC WBC 12.2, BUN 37, CR 1.7, Glucose 191, Lactic Acid 2.40, Urine Protein 4+, Urine Ketones 2+, urine Blood 4+ Urine Nitrate: Positive, Urine Bacteria: Moderate IS:Amlodipine PO Aspirin PO Clopidogrel Enalapril Maleate PO NovoLog Piperacillin IVPB Vancomycin Ampicillin IVPB Ertapenem IVPB NS IV x1L MED/SURG STATUS DC PLAN: RETURN TO [facility]
--- NOTE | 2018-07-11 16:00 | Infectious Diseases Prog Note ---
Assessment/Plan Problems: (1) Catheter-associated urinary tract infection Assessment & Plan: with gram negative rods and H/O infection due to MRSA, E.faecalis, Pseudomonas aeruginosa and proteus mirabilis, await final urine culture . continue vancomycin and zosyn empirically (2) Sepsis Assessment & Plan: due to the above , continue vancomycin and zosyn empirically pending culture (3) ARF (acute renal failure) Assessment & Plan: suspect dehydration, continue IVF for hydration and renally dosed meds , monitor UOP (4) Encephalopathy acute Assessment & Plan: suspect due to the above, continue wide spectrum antibiotics and hydration, monitor in tele Subjective ROS Limited/Unobtainable: Yes Allergies: Coded Allergies: No Known Allergies (Unverified , 11/26/14) Subjective He was more awake and alert today but confused, and agitated , in restrains, afebrile, making urine, no cough or SOB, no diarrhea Objective Vital Signs Last 24 Hour Vital Signs Date Time Temp Pulse Resp B/P (MAP) Pulse Ox O2 Delivery O2 Flow Rate FiO2 07/11/18 12:02 97.6 63 19 120/53 (75) 95 07/11/18 08:42 60 116/50 07/11/18 08:41 116/50 07/11/18 08:30 Room Air 07/11/18 08:05 97.3 60 20 116/50 (72) 93 07/11/18 04:00 98.5 60 18 132/62 (85) 93 07/11/18 00:00 98.5 63 18 132/72 (92) 93 07/10/18 22:00 Room Air 07/10/18 20:59 97.8 84 18 140/79 (99) 94 07/10/18 19:18 98.8 66 21 131/62 95 Nasal Cannula 2.0 07/10/18 18:09 98.8 66 21 131/62 95 Nasal Cannula 2.0 Height (Feet): 5 Height (Inches): 3.00 Weight (Pounds): 138 General Appearance: WD/WN, cachetic, other - agitated confused HEENT: normocephalic, atraumatic, anicteric, mucous membranes moist, PERRL Respiratory/Chest: chest wall non-tender, lungs clear, normal breath sounds, no respiratory distress, no accessory muscle use Cardiovascular: normal peripheral pulses, normal rate, regular rhythm, no gallop/murmur, no JVD Abdomen: normal bowel sounds, soft, non tender, no organomegaly, non distended , no mass, no scars Extremities: no cyanosis, no clubbing Skin: no rash, no lesions, no ulcers Neurologic/Psychiatric: alert, unresponsiveness, other - confused Lymphatic: no neck adenopathy, no groin adenopathy Musculoskeletal: no effusion, atrophy Microbiology Date/Time Source Procedure Growth Status 07/10/18 13:20 Nasal Nares Influenza Types A,B Antigen (LAURA) - Final Complete 07/10/18 13:33 Urine,Clean Catch Urine Culture - Preliminary Gram Negative Bacillus 1 Resulted Laboratory Tests Test 07/10/18 17:40 07/11/18 09:05 Lactic Acid Level 1.50 mmol/L (0.66-2.22) White Blood Count 8.4 K/UL (4.8-10.8) Red Blood Count 4.67 M/UL (4.70-6.10) L Hemoglobin 10.4 G/DL (14.2-18.0) L Hematocrit 33.6 % (42.0-52.0) L Mean Corpuscular Volume 72 FL (80-99) L Mean Corpuscular Hemoglobin 22.2 PG (27.0-31.0) L Mean Corpuscular Hemoglobin Concent 30.8 G/DL (32.0-36.0) L Red Cell Distribution Width 12.8 % (11.6-14.8) Platelet Count 225 K/UL (150-450) Mean Platelet Volume 6.4 FL (6.5-10.1) L Neutrophils (%) (Auto) 79.2 % (45.0-75.0) H Lymphocytes (%) (Auto) 13.7 % (20.0-45.0) L Monocytes (%) (Auto) 4.2 % (1.0-10.0) Eosinophils (%) (Auto) 2.0 % (0.0-3.0) Basophils (%) (Auto) 1.0 % (0.0-2.0) Sodium Level 142 MMOL/L (136-145) Potassium Level 4.3 MMOL/L (3.5-5.1) Chloride Level 107 MMOL/L (98-107) Carbon Dioxide Level 27 MMOL/L (21-32) Anion Gap 8 mmol/L (5-15) Blood Urea Nitrogen 29 mg/dL (7-18) H Creatinine 1.5 MG/DL (0.55-1.30) H Estimat Glomerular Filtration Rate mL/min (>60) Glucose Level 191 MG/DL (74-106) H Calcium Level 8.9 MG/DL (8.5-10.1) Current Medications Medications (Trade) Dose Ordered Sig/Charlene Route PRN Reason Start Time Stop Time Status Last Admin Dose Admin Amlodipine Besylate (Norvasc) 5 mg DAILY ORAL 07/11/18 09:00 08/10/18 08:59 07/11/18 08:42 Aspirin (Ecotrin) 81 mg DAILY ORAL 07/11/18 09:00 08/10/18 08:59 07/11/18 08:41 Citalopram Hydrobromide (celeXA) 40 mg BEDTIME ORAL 07/11/18 21:00 08/10/18 20:59 Clopidogrel Bisulfate (Plavix) 75 mg DAILY ORAL 07/11/18 09:00 08/10/18 08:59 07/11/18 08:41 Dextrose (Dextrose 50%) 25 ml Q30M PRN IV Hypoglycemia 07/10/18 21:45 08/09/18 21:44 Dextrose (Dextrose 50%) 50 ml Q30M PRN IV Hypoglycemia 07/10/18 21:45 08/09/18 21:44 Enalapril Maleate (Vasotec) 20 mg DAILY ORAL 07/11/18 09:00 08/10/18 08:59 07/11/18 08:41 Insulin Aspart (NovoLOG) BEFORE MEALS AND HS SUBQ 07/11/18 06:30 08/10/18 06:29 07/11/18 11:54 Olanzapine (ZyPREXA) 2.5 mg BEDTIME ORAL 07/11/18 21:00 08/10/18 20:59 Piperacillin Sod/ Tazobactam Sod 3.375 gm/Sodium Chloride 110 ml @ 27.5 mls/hr Q8HR IVPB 07/10/18 22:00 07/17/18 21:59 07/11/18 13:03 Polyethylene Glycol (Miralax) 17 gm HSPRN PRN ORAL Constipation 07/10/18 21:45 08/09/18 21:44 Sodium Chloride 1,000 ml @ 50 mls/hr Q20H IV 07/10/18 22:00 08/09/18 21:59 07/10/18 23:09 Vancomycin HCl (Vanco rx to dose) 1 ea DAILY PRN MISC Per rx protocol 07/10/18 17:00 08/09/18 16:59 Vancomycin HCl 750 mg/Sodium Chloride 275 ml @ 183.333 mls/hr Q24H IVPB 07/11/18 18:00 07/16/18 17:59 Frida Billings M.D. Jul 11, 2018 16:00
--- NOTE | 2018-07-11 16:08 | NUR ---
P.T Note: P.T evaluation completed and treatment initiated.Please refer to P.T evaluation for current functional status. Skilled P.T service is warranted to improve strength, balance and endurance to increase level of independence on fucntional mobilities and safety. Recommend DC to prior living arrangement or SNF with continue P.T. Addendum: 07/11/18 at 1608 by ART SHAIKH PT Amended: Links added.
--- NOTE | 2018-07-11 16:30 | General Progress Note ---
Assessment/Plan Status: stable Assessment/Plan 1. Catheter-associated urinary tract infection. cont IV Zosyn and Vancomycin. F/U urine culture. 2. Possible sepsis. Continue Zosyn and Vanco and follow the blood cultures. 3. Acute renal failure secondary to dehydration. Cont IVF NS and continue to monitor renal function. 4. Toxic encephalopathy. Improved. We will continue IV antibiotic. 5. Hypertension. We will continue home medication. 6. Diabetes. We will hold metformin due to creatinine 1.7. We will start the patient on insulin sliding scale at this point in the hospital. 7. Dementia, possible Alzheimer dementia. We will restart the patient on home medication of Zyprexa 2.5 at night. 8. History of depression. We will restart the patient on home medication, Celexa 40 mg at night. 9. History of coronary artery disease. We will restart the patient on Plavix 75 mg daily. Subjective Date patient seen: Jul 11, 2018 Time patient seen: 16:05 Constitutional: Reports: weakness HEENT: Reports: no symptoms Cardiovascular: Reports: no symptoms Respiratory: Reports: cough Gastrointestinal/Abdominal: Reports: no symptoms Genitourinary: Reports: no symptoms Neurologic/Psychiatric: Reports: no symptoms Endocrine: Reports: no symptoms Hematologic/Lymphatic: Reports: no symptoms Allergies: Coded Allergies: No Known Allergies (Unverified , 11/26/14) Subjective Patient c/o coughing this morning. no fever or chills. no sob or chest pain. No nausea or vomiting. No abd pain. Objective Last 24 Hour Vital Signs Date Time Temp Pulse Resp B/P (MAP) Pulse Ox O2 Delivery O2 Flow Rate FiO2 07/11/18 16:00 98.0 60 17 137/60 (85) 97 07/11/18 12:02 97.6 63 19 120/53 (75) 95 07/11/18 08:42 60 116/50 07/11/18 08:41 116/50 07/11/18 08:30 Room Air 07/11/18 08:05 97.3 60 20 116/50 (72) 93 07/11/18 04:00 98.5 60 18 132/62 (85) 93 07/11/18 00:00 98.5 63 18 132/72 (92) 93 07/10/18 22:00 Room Air 07/10/18 20:59 97.8 84 18 140/79 (99) 94 07/10/18 19:18 98.8 66 21 131/62 95 Nasal Cannula 2.0 07/10/18 18:09 98.8 66 21 131/62 95 Nasal Cannula 2.0 Intake and Output 07/10/18 07/11/18 19:00 07:00 Intake Total 260.0 ml Output Total 500 ml Balance -240.0 ml Intake IV Total 260.0 ml Output Urine Total 500 ml Laboratory Tests 07/10/18 17:40: Lactic Acid Level 1.50 07/11/18 09:05: White Blood Count 8.4, Red Blood Count 4.67L, Hemoglobin 10.4L, Hematocrit 33.6L , Mean Corpuscular Volume 72L, Mean Corpuscular Hemoglobin 22.2L, Mean Corpuscular Hemoglobin Concent 30.8L, Red Cell Distribution Width 12.8, Platelet Count 225, Mean Platelet Volume 6.4L, Neutrophils (%) (Auto) 79.2H, Lymphocytes (%) (Auto) 13.7L, Monocytes (%) (Auto) 4.2, Eosinophils (%) (Auto) 2.0, Basophils (%) (Auto) 1.0, Sodium Level 142, Potassium Level 4.3, Chloride Level 107, Carbon Dioxide Level 27, Anion Gap 8, Blood Urea Nitrogen 29H, Creatinine 1.5H, Estimat Glomerular Filtration Rate , Glucose Level 191H, Calcium Level 8.9 Height (Feet): 5 Height (Inches): 3.00 Weight (Pounds): 138 General Appearance: no apparent distress, alert Neck: non-tender, normal alignment, supple Cardiovascular: normal peripheral pulses, normal rate, regular rhythm Respiratory/Chest: chest wall non-tender, lungs clear, normal breath sounds Abdomen: non tender, soft, no organomegaly Extremities: normal range of motion, non-tender Edema: no edema noted Arm (L), no edema noted Arm (R), no edema noted Leg (L), no edema noted Leg (R), no edema noted Pedal (L), no edema noted Pedal (R), no edema noted Generalized Neurologic: alert, responsive Skin: warm/dry Lymphatic: normal anterior cervical (L), normal anterior cervical (R), normal posterior cervical (L), normal posterior cervical (R), normal submandibular (L) , normal submandibular (R), normal supraclavicular (L), normal supraclavicular ( R), normal axillary (L), normal axillary (R), normal inguinal (L), normal inguinal (R), normal other Suad Loving MD Jul 11, 2018 16:30
[2018-07-11] MEDS: Vancomycin 750mg/NS 275ml IVPB SCH ×2 (17:58)
--- NOTE | 2018-07-11 20:24 | NUR ---
NURSE NOTES: PATIENT IN BED, AWAKE. IV IN PLACE, PATENT. SUPRAPUBIC NOTED. NO S/S PAIN OR DISTRESS NOTED. BED IN LOWEST POSITION, CALL LIGHT WITHIN REACH, BED ALARM ON. WILL CONTINUE TO MONITOR.
[2018-07-11] MEDS: OLANZapine 2.5mg tab ORAL SCH (21:31)
[2018-07-11] MEDS: Citalopram Hydrobromide 10mg Tab ORAL SCH (21:31)
--- NOTE | 2018-07-11 21:31 | Consultation ---
DATE OF CONSULTATION: 07/10/2018 INFECTIOUS DISEASE CONSULTATION CONSULTING PHYSICIAN: Frida Billings M.D. REQUESTING PHYSICIAN: Suad Loving M.D. REASON FOR CONSULTATION: Catheter-associated urine tract infection, possible sepsis with encephalopathy, and recommendation for antibiotics treatment. HISTORY OF PRESENT ILLNESS: The patient is an 87-year-old [place] male with past medical history of chronic suprapubic catheter, multiple urine tract infections, hypertension, diabetes, and dementia, was sent from [facility] for vomiting and abdominal pain. The patient had urinalysis, which showed UTI as an outpatient and he was started on Levaquin, but but did not respond well to the antibiotics treatment and started vomiting, so he was sent to the emergency room at [facility] for further evaluation and management. The patient was found to have urine tract infection again and his white count was elevated, concerning for sepsis. So, he received antibiotics in the emergency room and Infectious Disease consultation was requested for antibiotics treatment and further management. As of note, the patient is altered, demented, and cannot provide any history. History was mainly obtained from the medical record and nursing staff. REVIEW OF SYSTEMS: Unable to obtain. The patient is a poor historian, cannot provide any history. PAST MEDICAL HISTORY: Significant for chronic suprapubic Patricio catheter, recurrent UTI in the past, hypertension, diabetes, dementia, and urinary retention. PAST SURGICAL HISTORY: He had indwelling suprapubic Patricio catheter placement. SOCIAL HISTORY: The patient lives at the Assisted Living. No recent drugs, tobacco, or alcohol. FAMILY HISTORY: Non contributory. ALLERGIES: No known drug allergies. MEDICATIONS: The patient received vancomycin, ertapenem, and ampicillin in the emergency room. For the rest of his medications, please refer to MAR. LABORATORY DATA: Labs showed white count of 12,200, hemoglobin of 12.9, and platelet count of 241,000. BUN of 37, creatinine of 1.7, AST of 15, and ALT of 15. Urinalysis was positive for nitrite, +3 leukocyte esterase, WBC 30 to 40, and moderate amount of urine bacteria. Microbiology, influenza screening A and B, both negative. IMAGING: Chest x-ray showed hypoventilatory exam with bilateral basilar atelectasis and possible small left pleural effusion. PHYSICAL EXAMINATION: VITAL SIGNS: Temperature 98.8, pulse 66, respirations 21, blood pressure 131/62, saturation 95% on 2 L nasal cannula. GENERAL: Speaker, lying in bed, confused, incoherent, does not make sense, mildly agitated, not in acute distress. HEENT: Normocephalic and atraumatic. Pupils are reactive to light equally. Pale sclera. Moist oral mucosa. No ulceration can be seen on his lips. NECK: Supple. No lymphadenopathy. No JVD. CARDIOVASCULAR: He was mildly tachycardic. S1 and S2 normal. No murmur or gallop. LUNGS: He has diminished breathing sound at the bases. No wheezing or rhonchi. No rales. Normal breathing efforts. ABDOMEN: Soft, nontender, nondistended. Normal bowel sounds. No hepatosplenomegaly or ascites. Suprapubic Patricio catheter in place with clean site. EXTREMITIES: No edema or cyanosis. ASSESSMENT AND RECOMMENDATION: 1. Catheter-associated urinary tract infection with history of infection due to MRSA, E. faecalis, Pseudomonas aeruginosa, and Proteus mirabilis. We will send urine culture from his Patricio and start Zosyn empiric coverage for now, pending urine culture. Continue local Patricio care as needed. 2. Sepsis due to the above. We will start vancomycin and Zosyn, pending blood culture and urine culture. We will deescalate antibiotics based on the results. 3. Acute renal failure, suspect dehydration. Continue IV fluid for hydration and renally dosed medicine and monitor urine output. 4. Encephalopathy, acute, suspect due to the above. Continue wide-spectrum antibiotics and hydration. Monitor in telemetry. 5. Chronic suprapubic catheter. Continue local Patricio catheter care as needed. Thank you for the consult. ID will continue to follow. Frida Billings M.D. DR: KALEN JOB#: [id number] CC:
[2018-07-12 00:30] VITALS: BP 111/78
[2018-07-12 04:35] VITALS: BP 115/73
[2018-07-12] MEDS: Piperacillin/Tazobactam 3.375 GM in NS 110 ML IVPB SCH (05:33)
--- NOTE | 2018-07-12 06:10 | NUR ---
NURSE NOTES: PATIENT ASLEEP, NO DISTRESS, V/S STABLE.
[2018-07-12] MEDS: NovoLOG Insulin Flexpen SUBQ SCH ×4 (06:52→22:03)
[2018-07-12 07:15] LABS: BASOPHILS % (AUTO) 0.8 % (0.0-2.0); HEMATOCRIT 31.8 % (42.0-52.0); HEMOGLOBIN 9.9 G/DL (14.2-18.0); LYMPHOCYTES % (AUTO) 20.1 % (20.0-45.0); MEAN CORPUSCULAR VOLUME 72 FL (80-99); MONOCYTES % (AUTO) 6.1 % (1.0-10.0); PLATELET COUNT 188 K/UL (150-450); RED BLOOD COUNT 4.42 M/UL (4.70-6.10); RED CELL DISTRIBUTION WIDTH 12.7 % (11.6-14.8); WHITE BLOOD COUNT 7.9 K/UL (4.8-10.8)
[2018-07-12 07:23] LABS: ANION GAP 9 mmol/L (5-15); BLOOD UREA NITROGEN 29 mg/dL (7-18); CALCIUM 8.5 MG/DL (8.5-10.1); CARBON DIOXIDE 27 MMOL/L (21-32); CHLORIDE 108 MMOL/L (98-107); CREATININE 1.5 MG/DL (0.55-1.30); SODIUM 144 MMOL/L (136-145)
--- NOTE | 2018-07-12 07:37 | NUR ---
HAND-OFF: Report given to RADHA DICK RN.
--- NOTE | 2018-07-12 07:40 | NUR ---
NURSE NOTES: Received patient in bed,asleep but easily arousable. Denies any pain or discomfort. Supra pubic intact, no leaking and draining well @ this time. IV intact, no s/s of infiltration. Bed is in lowest position and locked. Will continue plan of care.
[2018-07-12 08:00] VITALS: BP 149/78
--- NOTE | 2018-07-12 09:09 | NUR ---
NURSE NOTES: Patient seen by Dr. Loving and RN received order to hold Zyprexa tonight. Order carried out.
--- NOTE | 2018-07-12 09:14 | General Progress Note ---
Assessment/Plan Status: stable Assessment/Plan 1. Catheter-associated urinary tract infection. cont IV Zosyn and Vancomycin. F/U urine culture. ID following. 2. Possible sepsis. Continue Zosyn and Vanco and blood cultures negative so far. 3. Acute renal failure secondary to dehydration. Cont IVF NS and continue to monitor renal function. 4. Toxic encephalopathy. Improved. We will continue IV antibiotic. 5. Hypertension. We will continue home medication. 6. Diabetes. Cont SSI due to high Creatinine for now. 7. Dementia, possible Alzheimer dementia. will hold Zyprexa 2.5 at night due to being drawsy this morning. 8. History of depression. cont Celexa 40 mg at night. 9. History of coronary artery disease. cont Plavix 75 mg daily. Subjective Date patient seen: Jul 12, 2018 Time patient seen: 09:00 Constitutional: Reports: weakness HEENT: Reports: no symptoms Cardiovascular: Reports: no symptoms Respiratory: Reports: no symptoms Gastrointestinal/Abdominal: Reports: no symptoms Genitourinary: Reports: no symptoms Neurologic/Psychiatric: Reports: no symptoms Endocrine: Reports: no symptoms Hematologic/Lymphatic: Reports: no symptoms Allergies: Coded Allergies: No Known Allergies (Unverified , 11/26/14) Subjective Patient is awake but slightly drowsy this morning. no fever or chills. no sob or chest pain. No nausea or vomiting. No abd pain. Objective Last 24 Hour Vital Signs Date Time Temp Pulse Resp B/P (MAP) Pulse Ox O2 Delivery O2 Flow Rate FiO2 07/12/18 04:35 98.3 71 18 115/73 (87) 95 07/12/18 00:30 98.8 65 18 111/78 (89) 96 07/11/18 21:00 Room Air 07/11/18 20:27 98.9 64 18 151/61 (91) 95 07/11/18 16:00 98.0 60 17 137/60 (85) 97 07/11/18 12:02 97.6 63 19 120/53 (75) 95 Intake and Output 07/11/18 07/12/18 18:59 06:59 Intake Total 1195.0 ml 470.83 ml Output Total 500 ml Balance 1195.0 ml -29.17 ml Intake Oral 840 ml IV Total 355.0 ml 470.83 ml Output Urine Total 500 ml # Voids 6 Laboratory Tests 07/12/18 05:10: White Blood Count 7.9, Red Blood Count 4.42L, Hemoglobin 9.9L, Hematocrit 31.8L , Mean Corpuscular Volume 72L, Mean Corpuscular Hemoglobin 22.3L, Mean Corpuscular Hemoglobin Concent 31.1L, Red Cell Distribution Width 12.7, Platelet Count 188, Mean Platelet Volume 6.4L, Neutrophils (%) (Auto) 68.0, Lymphocytes (%) (Auto) 20.1, Monocytes (%) (Auto) 6.1, Eosinophils (%) (Auto) 5.0H, Basophils (%) (Auto) 0.8, Sodium Level 144, Potassium Level 4.0, Chloride Level 108H, Carbon Dioxide Level 27, Anion Gap 9, Blood Urea Nitrogen 29H, Creatinine 1.5H, Estimat Glomerular Filtration Rate , Glucose Level 124H, Calcium Level 8.5 Height (Feet): 5 Height (Inches): 3.00 Weight (Pounds): 138 General Appearance: no apparent distress, lethargic EENT: normal ENT inspection Neck: non-tender, supple Cardiovascular: normal rate, regular rhythm Respiratory/Chest: lungs clear, normal breath sounds, no respiratory distress Abdomen: normal bowel sounds, non tender, soft Extremities: normal range of motion, non-tender Edema: no edema noted Arm (L), no edema noted Arm (R), no edema noted Leg (L), no edema noted Leg (R), no edema noted Pedal (L), no edema noted Pedal (R), no edema noted Generalized Neurologic: responsive Skin: warm/dry Lymphatic: normal anterior cervical (L), normal anterior cervical (R), normal posterior cervical (L), normal posterior cervical (R), normal submandibular (L) , normal submandibular (R), normal supraclavicular (L), normal supraclavicular ( R), normal axillary (L), normal axillary (R), normal inguinal (L), normal inguinal (R), normal other Suad Loving MD Jul 12, 2018 09:13
[2018-07-12] MEDS: Aspirin EC 81mg tab ORAL SCH (10:03)
[2018-07-12] MEDS: Ertapenem 0.5 GM in NS 55 ML IVPB SCH (10:50)
[2018-07-12 12:00] VITALS: BP 120/65
--- NOTE | 2018-07-12 13:00 | NUR ---
NURSE NOTES: Patient is awake and consumed 100% of lunch without difficulties.
[2018-07-12 16:00] VITALS: BP 140/71
--- NOTE | 2018-07-12 17:39 | Infectious Diseases Prog Note ---
Assessment/Plan Problems: (1) Catheter-associated urinary tract infection Assessment & Plan: with MDR E coli , and gram positive cocci , await final urine culture . continue vancomycin and switch zosyn empirically to ertapenem to treat his E coli for 10 days (2) Sepsis Assessment & Plan: due to the above , continue vancomycin and ertapenem empirically pending culture (3) ARF (acute renal failure) Assessment & Plan: suspect dehydration, continue IVF for hydration and renally dosed meds , monitor UOP (4) Encephalopathy acute Assessment & Plan: suspect due to the above, continue wide spectrum antibiotics and hydration, monitor in tele Subjective ROS Limited/Unobtainable: Yes Allergies: Coded Allergies: No Known Allergies (Unverified , 11/26/14) Subjective He was sleepy and unresponsive to verbal commands, not agitated , in restrains, afebrile, making urine, no cough or SOB, no diarrhea Objective Vital Signs Last 24 Hour Vital Signs Date Time Temp Pulse Resp B/P (MAP) Pulse Ox O2 Delivery O2 Flow Rate FiO2 07/12/18 16:00 97.9 71 18 140/71 (94) 95 07/12/18 12:00 98.5 62 18 120/65 (83) 94 07/12/18 10:03 149/78 07/12/18 10:02 60 149/78 07/12/18 09:00 Room Air 07/12/18 08:00 98.2 60 18 149/78 (101) 93 07/12/18 04:35 98.3 71 18 115/73 (87) 95 07/12/18 00:30 98.8 65 18 111/78 (89) 96 07/11/18 21:00 Room Air 07/11/18 20:27 98.9 64 18 151/61 (91) 95 Height (Feet): 5 Height (Inches): 3.00 Weight (Pounds): 138 General Appearance: no acute distress, cachetic HEENT: normocephalic, atraumatic, anicteric, supple, no JVD Respiratory/Chest: chest wall non-tender, no respiratory distress, no accessory muscle use, decreased breath sounds Cardiovascular: normal peripheral pulses, normal rate, regular rhythm, no gallop/murmur, no JVD Abdomen: normal bowel sounds, soft, non tender, no organomegaly, non distended , no mass, no scars Extremities: no cyanosis, no clubbing Skin: no rash, no lesions, no ulcers Neurologic/Psychiatric: unresponsiveness Lymphatic: no neck adenopathy, no groin adenopathy Musculoskeletal: normal muscle bulk, no effusion Microbiology Date/Time Source Procedure Growth Status 07/10/18 13:15 Blood Blood Culture - Preliminary NO GROWTH AFTER 24 HOURS Resulted 07/10/18 13:05 Blood Blood Culture - Preliminary NO GROWTH AFTER 24 HOURS Resulted 07/10/18 18:54 Nasal Nares MRSA Culture - Final NO METHICILLIN RESISTANT STAPH AUREUS... Complete 07/10/18 13:20 Nasal Nares Influenza Types A,B Antigen (LAURA) - Final Complete 07/11/18 04:30 Indwelling Cath Urine Culture - Preliminary Gram Positive Cocci Resulted 07/10/18 13:33 Urine,Clean Catch Urine Culture - Final Escherichia Coli Complete 07/10/18 18:54 Rectum VRE Culture - Final Enterococcus Faecalis - Vre Complete 07/10/18 18:54 Rectum - Final NO CARBAPENEM-RESISTANT ENTEROBACTERI... Complete Laboratory Tests Test 07/12/18 05:10 07/12/18 17:00 White Blood Count 7.9 K/UL (4.8-10.8) Red Blood Count 4.42 M/UL (4.70-6.10) L Hemoglobin 9.9 G/DL (14.2-18.0) L Hematocrit 31.8 % (42.0-52.0) L Mean Corpuscular Volume 72 FL (80-99) L Mean Corpuscular Hemoglobin 22.3 PG (27.0-31.0) L Mean Corpuscular Hemoglobin Concent 31.1 G/DL (32.0-36.0) L Red Cell Distribution Width 12.7 % (11.6-14.8) Platelet Count 188 K/UL (150-450) Mean Platelet Volume 6.4 FL (6.5-10.1) L Neutrophils (%) (Auto) 68.0 % (45.0-75.0) Lymphocytes (%) (Auto) 20.1 % (20.0-45.0) Monocytes (%) (Auto) 6.1 % (1.0-10.0) Eosinophils (%) (Auto) 5.0 % (0.0-3.0) H Basophils (%) (Auto) 0.8 % (0.0-2.0) Sodium Level 144 MMOL/L (136-145) Potassium Level 4.0 MMOL/L (3.5-5.1) Chloride Level 108 MMOL/L (98-107) H Carbon Dioxide Level 27 MMOL/L (21-32) Anion Gap 9 mmol/L (5-15) Blood Urea Nitrogen 29 mg/dL (7-18) H Creatinine 1.5 MG/DL (0.55-1.30) H Estimat Glomerular Filtration Rate mL/min (>60) Glucose Level 124 MG/DL (74-106) H Calcium Level 8.5 MG/DL (8.5-10.1) Vancomycin Level Trough Pending Current Medications Medications (Trade) Dose Ordered Sig/Charelne Route PRN Reason Start Time Stop Time Status Last Admin Dose Admin Amlodipine Besylate (Norvasc) 5 mg DAILY ORAL 07/11/18 09:00 08/10/18 08:59 07/12/18 10:02 Aspirin (Ecotrin) 81 mg DAILY ORAL 07/11/18 09:00 08/10/18 08:59 07/12/18 10:03 Citalopram Hydrobromide (celeXA) 40 mg BEDTIME ORAL 07/11/18 21:00 08/10/18 20:59 07/11/18 21:31 Clopidogrel Bisulfate (Plavix) 75 mg DAILY ORAL 07/11/18 09:00 08/10/18 08:59 07/12/18 10:03 Dextrose (Dextrose 50%) 25 ml Q30M PRN IV Hypoglycemia 07/10/18 21:45 08/09/18 21:44 Dextrose (Dextrose 50%) 50 ml Q30M PRN IV Hypoglycemia 07/10/18 21:45 08/09/18 21:44 Enalapril Maleate (Vasotec) 20 mg DAILY ORAL 07/11/18 09:00 08/10/18 08:59 07/12/18 10:03 Ertapenem 0.5 gm/ Sodium Chloride 55 ml @ 110 mls/hr Q24H IVPB 07/12/18 10:00 07/17/18 09:59 07/12/18 10:50 Insulin Aspart (NovoLOG) BEFORE MEALS AND HS SUBQ 07/11/18 06:30 08/10/18 06:29 07/12/18 12:24 Olanzapine (ZyPREXA) 2.5 mg BEDTIME ORAL 07/11/18 21:00 08/10/18 20:59 07/11/18 21:31 Polyethylene Glycol (Miralax) 17 gm HSPRN PRN ORAL Constipation 07/10/18 21:45 08/09/18 21:44 Sodium Chloride 1,000 ml @ 50 mls/hr Q20H IV 07/10/18 22:00 08/09/18 21:59 07/12/18 14:05 Vancomycin HCl (Vanco rx to dose) 1 ea DAILY PRN MISC Per rx protocol 07/10/18 17:00 08/09/18 16:59 Vancomycin HCl 750 mg/Sodium Chloride 275 ml @ 183.333 mls/hr Q24H IVPB 07/11/18 18:00 07/16/18 17:59 07/11/18 17:58 Frida Billings M.D. Jul 12, 2018 17:39
[2018-07-12] MEDS: Vancomycin 750mg/NS 275ml IVPB SCH ×2 (18:19)
--- NOTE | 2018-07-12 18:30 | NUR ---
NURSE NOTES: Patient is awake and verbally responsive and consumed 100% of dinner with the help of WRAPPER [employer] HAND and RN without difficulties.
--- NOTE | 2018-07-12 19:25 | NUR ---
HAND-OFF: Report given to Nikolai and endorsed to hold zyprexa tonmoose.
--- NOTE | 2018-07-12 19:47 | NUR ---
NURSE NOTES: Pt is in bed, calm. No acute distress noted. Suprapubic cath in place, draining yellow urine. Bed low in place, call light within reach. Pt will be monitored.
[2018-07-12 20:00] VITALS: BP 149/85
[2018-07-12] MEDS: OLANZapine 2.5mg tab ORAL SCH (21:00)
[2018-07-12] MEDS: Citalopram Hydrobromide 10mg Tab ORAL SCH (22:05)
[2018-07-13] VITALS: BP 134/45
[2018-07-13 04:00] VITALS: BP 125/45
--- NOTE | 2018-07-13 04:25 | NUR ---
NURSE NOTES: Pt is in bed, asleep. RR 16. No acute distress noted. NS running at 50ml/hr.
[2018-07-13] MEDS: NovoLOG Insulin Flexpen SUBQ SCH ×4 (06:18→20:20)
--- NOTE | 2018-07-13 07:05 | NUR ---
HAND-OFF: Report given to RHYS Jose.
[2018-07-13 08:00] VITALS: BP 144/55
[2018-07-13 08:26] LABS: BASOPHILS % (AUTO) 1.1 % (0.0-2.0); EOSINOPHILS % (AUTO) 4.3 % (0.0-3.0); HEMATOCRIT 32.2 % (42.0-52.0); HEMOGLOBIN 9.9 G/DL (14.2-18.0); LYMPHOCYTES % (AUTO) 23.1 % (20.0-45.0); MEAN CORPUSCULAR VOLUME 72 FL (80-99); MONOCYTES % (AUTO) 6.3 % (1.0-10.0); NEUTROPHILS % (AUTO) 65.2 % (45.0-75.0); PLATELET COUNT 186 K/UL (150-450); RED BLOOD COUNT 4.46 M/UL (4.70-6.10); RED CELL DISTRIBUTION WIDTH 13.1 % (11.6-14.8)
[2018-07-13 08:50] LABS: ANION GAP 7 mmol/L (5-15); BLOOD UREA NITROGEN 30 mg/dL (7-18); CALCIUM 8.5 MG/DL (8.5-10.1); CARBON DIOXIDE 26 MMOL/L (21-32); CHLORIDE 109 MMOL/L (98-107); CREATININE 1.4 MG/DL (0.55-1.30); POTASSIUM 3.9 MMOL/L (3.5-5.1); SODIUM 142 MMOL/L (136-145)
[2018-07-13] MEDS: Aspirin EC 81mg tab ORAL SCH (09:44)
[2018-07-13] MEDS: Ertapenem 0.5 GM in NS 55 ML IVPB SCH (10:59)
[2018-07-13 12:00] VITALS: BP 158/61
--- NOTE | 2018-07-13 12:09 | NUR ---
NURSE NOTES: RN relayed VRE in the urine from urine culture to Dr. Billings with new order to d/c vancomycin and changed to zyvox 600mg IV Q12Hr. Dr. Billings aware of possible interaction.
--- NOTE | 2018-07-13 13:00 | NUR ---
NURSE NOTES: zyvox is resist and antibiotic was changed to ampicillin by Dr. Billings. Patient is more awake today and able to feed himself with minimal assistance.
[2018-07-13 16:00] VITALS: BP 149/66
--- NOTE | 2018-07-13 16:12 | NUR ---
OPERATIONS SUPPORT PROFESSIONALSEXHAUSTER SI: UTI VS: BP 158/61, P 55, T 98.5, RR 20, SpO2 94 RBC 4.46, BUN 30, CR 1.4 IS:ERTAPENEM 55ml ASPIRIN 81mg PLAVIX 75mg VASOTEC 20mg NOVOLOG SUBQ NS IV x1L MED/SURG STATUS
--- NOTE | 2018-07-13 16:38 | General Progress Note ---
Assessment/Plan Status: stable Assessment/Plan 1. Catheter-associated urinary tract infection. cont Ampicilin and Invanz per ID. ID following. need to change suprapubic cath by Dr Shankar. 2. Possible sepsis. Continue ampicilin amd Invanz per ID. 3. Acute renal failure secondary to dehydration. improved. Cont IVF NS and continue to monitor renal function. 4. Toxic encephalopathy. resolved. We will continue IV antibiotic. 5. Hypertension. We will continue home medication. 6. Diabetes. Cont SSI due to high Creatinine for now. 7. Dementia, possible Alzheimer dementia. Improved. D/C Zyprexa 2.5 at night. 8. History of depression. cont Celexa 40 mg at night. 9. History of coronary artery disease. cont Plavix 75 mg daily. Subjective Date patient seen: Jul 13, 2018 Time patient seen: 16:00 Constitutional: Reports: weakness HEENT: Reports: no symptoms Cardiovascular: Reports: no symptoms Respiratory: Reports: no symptoms Gastrointestinal/Abdominal: Reports: no symptoms Genitourinary: Reports: no symptoms Neurologic/Psychiatric: Reports: no symptoms Endocrine: Reports: no symptoms Hematologic/Lymphatic: Reports: no symptoms Allergies: Coded Allergies: No Known Allergies (Unverified , 11/26/14) Subjective This morning he is doing well. more awake and responsive and was able to walk with walker slightly. no fever or chills. no sob or chest pain. No nausea or vomiting. No abd pain. Objective Last 24 Hour Vital Signs Date Time Temp Pulse Resp B/P (MAP) Pulse Ox O2 Delivery O2 Flow Rate FiO2 07/13/18 12:00 98.5 56 20 158/61 (93) 94 07/13/18 09:45 145/61 07/13/18 09:00 Room Air 07/13/18 09:00 55 146/61 07/13/18 08:00 98.3 55 20 144/55 (84) 94 07/13/18 04:00 98.1 55 17 125/45 (71) 94 07/13/18 00:00 98.2 60 18 134/45 (74) 94 07/12/18 21:00 Room Air 07/12/18 20:00 98.0 79 17 149/85 (106) 95 Intake and Output 07/12/18 07/13/18 18:59 06:59 Intake Total 965 ml 1115.000 ml Output Total 250 ml 850 ml Balance 715 ml 265.000 ml Intake Oral 360 ml 240 ml IV Total 605 ml 875.000 ml Output Urine Total 250 ml 850 ml # Voids 1 Laboratory Tests 07/12/18 17:00: Vancomycin Level Trough 10.1 07/13/18 07:44: White Blood Count 7.0, Red Blood Count 4.46L, Hemoglobin 9.9L, Hematocrit 32.2L , Mean Corpuscular Volume 72L, Mean Corpuscular Hemoglobin 22.2L, Mean Corpuscular Hemoglobin Concent 30.8L, Red Cell Distribution Width 13.1, Platelet Count 186, Mean Platelet Volume 6.1L, Neutrophils (%) (Auto) 65.2, Lymphocytes (%) (Auto) 23.1, Monocytes (%) (Auto) 6.3, Eosinophils (%) (Auto) 4.3H, Basophils (%) (Auto) 1.1, Sodium Level 142, Potassium Level 3.9, Chloride Level 109H, Carbon Dioxide Level 26, Anion Gap 7, Blood Urea Nitrogen 30H, Creatinine 1.4H, Estimat Glomerular Filtration Rate , Glucose Level 105, Calcium Level 8.5 Height (Feet): 5 Height (Inches): 3.00 Weight (Pounds): 137 General Appearance: no apparent distress, alert EENT: normal ENT inspection Neck: non-tender, normal alignment, supple Cardiovascular: normal rate, regular rhythm Respiratory/Chest: chest wall non-tender, lungs clear, normal breath sounds Abdomen: normal bowel sounds, non tender, soft Extremities: normal range of motion, non-tender Edema: no edema noted Arm (L), no edema noted Arm (R), no edema noted Leg (L), no edema noted Leg (R), no edema noted Pedal (L), no edema noted Pedal (R), no edema noted Generalized Neurologic: alert, responsive Skin: warm/dry Lymphatic: normal anterior cervical (L), normal anterior cervical (R), normal posterior cervical (L), normal posterior cervical (R), normal submandibular (L) , normal submandibular (R), normal supraclavicular (L), normal supraclavicular ( R), normal axillary (L), normal axillary (R), normal inguinal (L), normal inguinal (R), normal other Azizollahi,Farid MD Jul 13, 2018 16:38
--- NOTE | 2018-07-13 16:45 | NUR ---
NURSE NOTES: Patient was seen by Dr. Loving and RN received new order to eryn/c geetha and CM consult for SNF placement. Humaira will send info to [facility] and physician consult with Dr. Arevalo for change of supra pubic cath. Order read back and carried out.
--- NOTE | 2018-07-13 16:45 | NUR ---
NURSE NOTES: Rn made Dr. Loving aware of elevated blood pressure and pulse of 56, 55 with no new order.
--- NOTE | 2018-07-13 17:14 | Infectious Diseases Prog Note ---
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 continue ertapenem to treat his MDR E.coli and switch vancomycin to ampicillin to treat his VRE for 10 days. contact isolation for now . recommend to change his suprapubic catheter for now (2) Sepsis Assessment & Plan: due to the above , with negative blood culture, already on ampicillin and ertapenem (3) ARF (acute renal failure) Assessment & Plan: suspect dehydration, continue IVF for hydration and renally dosed meds , monitor UOP (4) Encephalopathy acute Assessment & Plan: suspect due to the above, improving, continue wide spectrum antibiotics and hydration, monitor in tele Subjective ROS Limited/Unobtainable: Yes Allergies: Coded Allergies: No Known Allergies (Unverified , 11/26/14) Subjective He was more awake and responsive today, not agitated , afebrile, making urine, no cough or SOB, no diarrhea Objective Vital Signs Last 24 Hour Vital Signs Date Time Temp Pulse Resp B/P (MAP) Pulse Ox O2 Delivery O2 Flow Rate FiO2 07/13/18 16:00 98.7 61 18 149/66 (93) 96 07/13/18 12:00 98.5 56 20 158/61 (93) 94 07/13/18 09:45 145/61 07/13/18 09:00 Room Air 07/13/18 09:00 55 146/61 07/13/18 08:00 98.3 55 20 144/55 (84) 94 07/13/18 04:00 98.1 55 17 125/45 (71) 94 07/13/18 00:00 98.2 60 18 134/45 (74) 94 07/12/18 21:00 Room Air 07/12/18 20:00 98.0 79 17 149/85 (106) 95 Height (Feet): 5 Height (Inches): 3.00 Weight (Pounds): 137 General Appearance: WD/WN, no acute distress HEENT: normocephalic, atraumatic, anicteric, mucous membranes moist, PERRL Respiratory/Chest: chest wall non-tender, lungs clear, normal breath sounds, no respiratory distress, no accessory muscle use Cardiovascular: normal peripheral pulses, normal rate, regular rhythm, no gallop/murmur, no JVD Abdomen: normal bowel sounds, soft, non tender, no organomegaly, non distended , no mass, no scars Extremities: no cyanosis, no clubbing Skin: no rash, no lesions, no ulcers, other - suprapubic catheter site looks ok , no draining or pus Neurologic/Psychiatric: alert, responsive Lymphatic: no neck adenopathy, no groin adenopathy Musculoskeletal: normal muscle bulk, no effusion Microbiology Date/Time Source Procedure Growth Status 07/10/18 18:54 Nasal Nares MRSA Culture - Final NO METHICILLIN RESISTANT STAPH AUREUS... Complete 07/11/18 04:30 Indwelling Cath Urine Culture - Final Enterococcus Faecalis - Vre Complete 07/10/18 18:54 Rectum VRE Culture - Final Enterococcus Faecalis - Vre Complete 07/10/18 18:54 Rectum - Final NO CARBAPENEM-RESISTANT ENTEROBACTERI... Complete Laboratory Tests Test 07/13/18 07:44 White Blood Count 7.0 K/UL (4.8-10.8) Red Blood Count 4.46 M/UL (4.70-6.10) L Hemoglobin 9.9 G/DL (14.2-18.0) L Hematocrit 32.2 % (42.0-52.0) L Mean Corpuscular Volume 72 FL (80-99) L Mean Corpuscular Hemoglobin 22.2 PG (27.0-31.0) L Mean Corpuscular Hemoglobin Concent 30.8 G/DL (32.0-36.0) L Red Cell Distribution Width 13.1 % (11.6-14.8) Platelet Count 186 K/UL (150-450) Mean Platelet Volume 6.1 FL (6.5-10.1) L Neutrophils (%) (Auto) 65.2 % (45.0-75.0) Lymphocytes (%) (Auto) 23.1 % (20.0-45.0) Monocytes (%) (Auto) 6.3 % (1.0-10.0) Eosinophils (%) (Auto) 4.3 % (0.0-3.0) H Basophils (%) (Auto) 1.1 % (0.0-2.0) Sodium Level 142 MMOL/L (136-145) Potassium Level 3.9 MMOL/L (3.5-5.1) Chloride Level 109 MMOL/L (98-107) H Carbon Dioxide Level 26 MMOL/L (21-32) Anion Gap 7 mmol/L (5-15) Blood Urea Nitrogen 30 mg/dL (7-18) H Creatinine 1.4 MG/DL (0.55-1.30) H Estimat Glomerular Filtration Rate mL/min (>60) Glucose Level 105 MG/DL (74-106) Calcium Level 8.5 MG/DL (8.5-10.1) Current Medications Medications (Trade) Dose Ordered Sig/Charlene Route PRN Reason Start Time Stop Time Status Last Admin Dose Admin Amlodipine Besylate (Norvasc) 5 mg DAILY ORAL 07/11/18 09:00 08/10/18 08:59 07/12/18 10:02 Ampicillin 1 gm/ Sodium Chloride 55 ml @ 110 mls/hr Q6HR IVPB 07/13/18 18:00 07/20/18 17:59 Aspirin (Ecotrin) 81 mg DAILY ORAL 07/11/18 09:00 08/10/18 08:59 07/13/18 09:44 Citalopram Hydrobromide (celeXA) 40 mg BEDTIME ORAL 07/11/18 21:00 08/10/18 20:59 07/12/18 22:05 Clopidogrel Bisulfate (Plavix) 75 mg DAILY ORAL 07/11/18 09:00 08/10/18 08:59 07/13/18 09:45 Dextrose (Dextrose 50%) 25 ml Q30M PRN IV Hypoglycemia 07/10/18 21:45 08/09/18 21:44 Dextrose (Dextrose 50%) 50 ml Q30M PRN IV Hypoglycemia 07/10/18 21:45 08/09/18 21:44 Enalapril Maleate (Vasotec) 20 mg DAILY ORAL 07/11/18 09:00 08/10/18 08:59 07/13/18 09:45 Ertapenem 0.5 gm/ Sodium Chloride 55 ml @ 110 mls/hr Q24H IVPB 07/12/18 10:00 07/17/18 09:59 07/13/18 10:59 Insulin Aspart (NovoLOG) BEFORE MEALS AND HS SUBQ 07/11/18 06:30 08/10/18 06:29 07/13/18 12:31 Polyethylene Glycol (Miralax) 17 gm HSPRN PRN ORAL Constipation 07/10/18 21:45 08/09/18 21:44 Sodium Chloride 1,000 ml @ 50 mls/hr Q20H IV 07/10/18 22:00 08/09/18 21:59 07/13/18 10:18 Frida Billings M.D. Jul 13, 2018 17:14
[2018-07-13] MEDS: Ampicillin 1 GM in NS 55 ML IVPB SCH (17:24)
--- NOTE | 2018-07-13 19:50 | NUR ---
HAND-OFF: Report given to Madhuri.
--- NOTE | 2018-07-13 19:51 | NUR ---
NURSE NOTES: Received patient awake in bed, no s/s of acute distress, no c/o of pain at this time. Suprapubic catheter noted, draining well, anchor in place. Bed on lowest position, 3 side rails up, call light and belongings within reach.
[2018-07-13 20:00] VITALS: BP 144/72
[2018-07-13] MEDS: Citalopram Hydrobromide 10mg Tab ORAL SCH (20:55)
--- NOTE | 2018-07-13 22:30 | NUR ---
NURSE NOTES: Dr Arevalo reinserted new suprapubic cathether. [address] in place, anchor in place.
[2018-07-14] VITALS: BP 154/54
[2018-07-14] MEDS: Ampicillin 1 GM in NS 55 ML IVPB SCH ×3 (00:07→12:15)
[2018-07-14 04:00] VITALS: BP 140/57
[2018-07-14] MEDS: NovoLOG Insulin Flexpen SUBQ SCH ×2 (06:00→12:16)
--- NOTE | 2018-07-14 07:12 | NUR ---
HAND-OFF: Report given to RHYS Vazquez.
[2018-07-14 08:00] VITALS: BP 171/67
--- NOTE | 2018-07-14 08:14 | NUR ---
NURSE NOTES: Patient is alert and awake. No s/s of distress. Suprapubic catheter is anchored and draining. Side rails are up x2, bed is locked, and in lowest position. Will continue to monitor.
[2018-07-14] MEDS: Aspirin EC 81mg tab ORAL SCH (08:30)
[2018-07-14] MEDS ORDERED: AMPICILLIN SODIU1 G1 IV (09:04)
[2018-07-14] MEDS ORDERED: INVANZ1 G1 IM (09:04)
--- NOTE | 2018-07-14 09:08 | General Progress Note ---
Assessment/Plan Status: stable Assessment/Plan 1. Catheter-associated urinary tract infection. cont Ampicilin and Invanz x 7 more days at [facility]. Suprapubic cath changed yesterday with Dr page. [facility] 2. Possible sepsis. resolved. Continue ampicilin amd Invanz x 7 days. 3. Acute renal failure secondary to dehydration. improved. 4. Toxic encephalopathy. resolved. 5. Hypertension. We will continue home medication. 6. Diabetes. Cont SSI due to high Creatinine for now. 7. Dementia, possible Alzheimer dementia. Improved. D/C Zyprexa 2.5 at night. 8. History of depression. cont Celexa 40 mg at night. 9. History of coronary artery disease. cont Plavix 75 mg daily. Subjective Date patient seen: Jul 14, 2018 Time patient seen: 09:00 Constitutional: Reports: weakness HEENT: Reports: no symptoms Cardiovascular: Reports: no symptoms Respiratory: Reports: no symptoms Gastrointestinal/Abdominal: Reports: no symptoms Genitourinary: Reports: no symptoms Neurologic/Psychiatric: Reports: no symptoms Endocrine: Reports: no symptoms Hematologic/Lymphatic: Reports: no symptoms Allergies: Coded Allergies: No Known Allergies (Unverified , 11/26/14) Subjective This morning he is doing well. no fever or chills. no sob or chest pain. No nausea or vomiting. No abd pain. Objective Last 24 Hour Vital Signs Date Time Temp Pulse Resp B/P (MAP) Pulse Ox O2 Delivery O2 Flow Rate FiO2 07/14/18 08:30 171/67 07/14/18 08:30 63 171/67 07/14/18 08:00 97.8 63 19 171/67 (101) 95 07/14/18 04:00 98.7 55 20 140/57 (84) 96 07/14/18 00:00 98.5 57 20 154/54 (87) 96 07/13/18 21:00 Room Air 07/13/18 20:00 98.7 59 20 144/72 (96) 95 07/13/18 16:00 98.7 61 18 149/66 (93) 96 07/13/18 12:00 98.5 56 20 158/61 (93) 94 07/13/18 09:45 145/61 Intake and Output 07/13/18 07/14/18 19:00 07:00 Intake Total 1750 ml 550 ml Output Total 800 ml 900 ml Balance 950 ml -350 ml Intake Oral 1240 ml IV Total 510 ml 550 ml Output Urine Total 800 ml 900 ml # Bowel Movements 1 1 Height (Feet): 5 Height (Inches): 3.00 Weight (Pounds): 137 General Appearance: no apparent distress, alert EENT: normal ENT inspection Neck: non-tender, normal alignment, supple Cardiovascular: normal peripheral pulses, normal rate, regular rhythm Respiratory/Chest: lungs clear, normal breath sounds, no respiratory distress Abdomen: normal bowel sounds, non tender, soft Extremities: normal range of motion, non-tender Edema: no edema noted Arm (L), no edema noted Arm (R), no edema noted Leg (L), no edema noted Leg (R), no edema noted Pedal (L), no edema noted Pedal (R), no edema noted Generalized Neurologic: alert, responsive Skin: warm/dry Lymphatic: normal anterior cervical (L), normal anterior cervical (R), normal posterior cervical (L), normal posterior cervical (R), normal submandibular (L) , normal submandibular (R), normal supraclavicular (L), normal supraclavicular ( R), normal axillary (L), normal axillary (R), normal inguinal (L), normal inguinal (R), normal other Suad Loving MD Jul 14, 2018 09:08
--- NOTE | 2018-07-14 09:47 | NUR ---
*-* DISCHARGE PLANNED *-* PATIENT IS DISCHARGED TO: [facility] ROOM# 121 SKILLED T:[phone] FOR NURSE TO NURSE REPORT [facility] HAS BEEN ARRANG[facility] FOR CAGE LOADER AT [id number] *-* TRIED CONTACTING NOK UNABLE TO CONTACT LVM REGARDING PTS DISCHARGE, CALL PTN AND THE NUMBER RINGS BACK TO [facility].
--- NOTE | 2018-07-14 10:06 | Urology Progress Note ---
Assessment/Plan Assessment/Plan 1. History of abdominal pain. 2. BPH history. 3. Probable neurogenic bladder. 4. Urinary retention with chronic suprapubic tube. 5. Urinary tract infection and colonization. 6. Hematuria. 7. Proteinuria. 8. Renal insufficiency, acute on chronic. 9. Renal cyst. 10. Nephrolithiasis. 11. Rule out urethral stricture. keep SP tube, last exchanged 07/13 hand irrigated and position is satisfactory abx as ordered consider repeat renal imaging cysto later f/u on blood cx Subjective Allergies: Coded Allergies: No Known Allergies (Unverified , 11/26/14) Subjective all noted, new SP tube draining well Objective Last 24 Hour Vital Signs Date Time Temp Pulse Resp B/P (MAP) Pulse Ox O2 Delivery O2 Flow Rate FiO2 07/14/18 08:30 171/67 07/14/18 08:30 63 171/67 07/14/18 08:00 97.8 63 19 171/67 (101) 95 07/14/18 04:00 98.7 55 20 140/57 (84) 96 07/14/18 00:00 98.5 57 20 154/54 (87) 96 07/13/18 21:00 Room Air 07/13/18 20:00 98.7 59 20 144/72 (96) 95 07/13/18 16:00 98.7 61 18 149/66 (93) 96 07/13/18 12:00 98.5 56 20 158/61 (93) 94 Intake and Output 07/13/18 07/14/18 19:00 07:00 Intake Total 1750 ml 550 ml Output Total 800 ml 900 ml Balance 950 ml -350 ml Intake Oral 1240 ml IV Total 510 ml 550 ml Output Urine Total 800 ml 900 ml # Bowel Movements 1 1 Microbiology Date/Time Source Procedure Growth Status 07/10/18 13:15 Blood Blood Culture - Preliminary NO GROWTH AFTER 72 HOURS Resulted 07/10/18 18:54 Nasal Nares MRSA Culture - Final NO METHICILLIN RESISTANT STAPH AUREUS... Complete 07/11/18 04:30 Indwelling Cath Urine Culture - Final Enterococcus Faecalis - Vre Complete 07/10/18 18:54 Rectum VRE Culture - Final Enterococcus Faecalis - Vre Complete 07/10/18 18:54 Rectum - Final NO CARBAPENEM-RESISTANT ENTEROBACTERI... Complete Current Medications Medications (Trade) Dose Ordered Sig/Charlene Route PRN Reason Start Time Stop Time Status Last Admin Dose Admin Amlodipine Besylate (Norvasc) 5 mg DAILY ORAL 07/11/18 09:00 08/10/18 08:59 07/14/18 08:30 Ampicillin 1 gm/ Sodium Chloride 55 ml @ 110 mls/hr Q6HR IVPB 07/13/18 18:00 07/20/18 17:59 07/14/18 05:40 Aspirin (Ecotrin) 81 mg DAILY ORAL 07/11/18 09:00 08/10/18 08:59 07/14/18 08:30 Citalopram Hydrobromide (celeXA) 40 mg BEDTIME ORAL 07/11/18 21:00 08/10/18 20:59 07/13/18 20:55 Clopidogrel Bisulfate (Plavix) 75 mg DAILY ORAL 07/11/18 09:00 08/10/18 08:59 07/14/18 08:30 Dextrose (Dextrose 50%) 25 ml Q30M PRN IV Hypoglycemia 07/10/18 21:45 08/09/18 21:44 Dextrose (Dextrose 50%) 50 ml Q30M PRN IV Hypoglycemia 07/10/18 21:45 08/09/18 21:44 Enalapril Maleate (Vasotec) 20 mg DAILY ORAL 07/11/18 09:00 08/10/18 08:59 07/14/18 08:30 Ertapenem 0.5 gm/ Sodium Chloride 55 ml @ 110 mls/hr Q24H IVPB 07/12/18 10:00 07/17/18 09:59 07/13/18 10:59 Insulin Aspart (NovoLOG) BEFORE MEALS AND HS SUBQ 07/11/18 06:30 08/10/18 06:29 07/14/18 06:00 Polyethylene Glycol (Miralax) 17 gm HSPRN PRN ORAL Constipation 07/10/18 21:45 08/09/18 21:44 Sodium Chloride 1,000 ml @ 50 mls/hr Q20H IV 07/10/18 22:00 08/09/18 21:59 07/14/18 05:40 Height (Feet): 5 Height (Inches): 3.00 Weight (Pounds): 137 Objective exam stable Camilo Arevalo MD Jul 14, 2018 10:06
[2018-07-14] MEDS: Ertapenem 0.5 GM in NS 55 ML IVPB SCH (10:35)
--- NOTE | 2018-07-14 11:14 | NUR ---
*-* DISCHARGED PLANNED *-* PATIENT IS DISCHARGED TO: [facility] ROOM# 115-C SKILLED T:[phone] FOR NURSE TO NURSE REPRT [facility] HAS BEEN ARRANGED FOR BUSINESS DEVELOPMENT SPECIALIST AT [id number] *-* LVM FOR FAMILY OF PATIENT DC*-*
[2018-07-14 12:00] VITALS: BP 137/79
--- NOTE | 2018-07-14 13:14 | Consultation ---
DATE OF CONSULTATION: 07/13/2018 CONSULTING PHYSICIAN: Camilo Arevalo M.D. REFERRING PHYSICIAN: Suad Loving M.D. REASON FOR CONSULTATION: Evaluation of suprapubic tube. HISTORY OF PRESENT ILLNESS: This is an 87-year-old male. He was originally admitted to the hospital because of altered mental status, vomiting, and abdominal pain. He has a history of chronic suprapubic tube. He has a history of urinary tract infection and colonization. He has a history of BPH. Urology evaluation was requested to change the suprapubic tube. Most of the history was obtained from the chart. PAST MEDICAL HISTORY: Significant for above. Also history of hypertension, diabetes, and mild dementia. He also has mild chronic renal insufficiency. PAST SURGICAL HISTORY: Suprapubic tube placement. Other surgeries are unknown. CURRENT MEDICATIONS: Reviewed here in the hospital. The patient is on ampicillin, ertapenem, Celexa, Norvasc, Ecotrin, Plavix, Vasotec, NovoLog, MiraLAX, and dextrose. ALLERGIES: No known drug allergies. SOCIAL HISTORY: He is a resident of a [facility] and [facility] facility. FAMILY HISTORY: Noncontributory. REVIEW OF SYSTEMS: As above. PHYSICAL EXAMINATION: GENERAL: Elderly male, in no acute distress. VITAL SIGNS: Temperature is 98.7 and blood pressure 114/66. HEENT: Normocephalic. NECK: Supple. ABDOMEN: Soft. A 24-Portuguese suprapubic tube is in place. Urine is grossly yellow with some debris. EXTREMITIES: Slightly contracted. No clubbing. LABORATORY DATA: UA showed 4+ protein, 10 to 15 rbc's, and 30 to 40 wbc's. His last urine culture showed vancomycin-resistant enterococcus. He also had a previous urine culture that showed E. coli. These blood cultures are negative at 48 hours. His white blood cell count is 7.0, hemoglobin 9.9, and platelets 186. BUN is 30, creatinine 1.4. He did have a creatinine of 1.7 at time of admission. DIAGNOSTIC IMAGING STUDIES: There is no recent renal imaging. I did review his old imaging. He had a CT scan of the abdomen and pelvis back in 2016. At that time, there was mention of a small left renal cyst as well as a small left renal calcification. There was no hydronephrosis. IMPRESSION: 1. History of abdominal pain. 2. BPH history. 3. Probable neurogenic bladder. 4. Urinary retention with chronic suprapubic tube. 5. Urinary tract infection and colonization. 6. Hematuria. 7. Proteinuria. 8. Renal insufficiency, acute on chronic. 9. Renal cyst. 10. Nephrolithiasis. 11. Rule out urethral stricture. PLAN AND DISCUSSION: The patient was evaluated at bedside and I personally removed the old suprapubic tube and I was able to place a new 24-Portuguese suprapubic tube in place. Balloon was inflated to 25 mL sterile water. I did irrigate the new suprapubic tube and it irrigates well. It is in good position. The patient is to continue with antibiotics as ordered. He will be monitored clinically. Renal function is to be monitored and I would recommend cystoscopy at some point, which can be done as an outpatient. Thank you, Dr. Loving for asking me to participate in this consultation. Camilo Arevalo M.D. DR: NARCISA JOB#: [id number] CC:
[2018-07-14 16:00] VITALS: BP 116/74
--- NOTE | 2018-07-14 16:30 | Infectious Diseases Prog Note ---
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 continue ertapenem to treat his MDR E.coli for 7 more dyas and ampicillin to treat his VRE for 7 more days. contact isolation for now . he had his suprapubic catheter changed (2) Sepsis Assessment & Plan: due to the above , with negative blood culture, already on ampicillin and ertapenem (3) ARF (acute renal failure) Assessment & Plan: suspect dehydration, continue IVF for hydration and renally dosed meds , monitor UOP (4) Encephalopathy acute Assessment & Plan: suspect due to the above, improving, continue wide spectrum antibiotics and hydration, monitor in tele Subjective ROS Limited/Unobtainable: Yes Allergies: Coded Allergies: No Known Allergies (Unverified , 11/26/14) Subjective He was awake and responsive today, not confused or agitated , afebrile, making urine, no cough or SOB, no diarrhea Objective Vital Signs Last 24 Hour Vital Signs Date Time Temp Pulse Resp B/P (MAP) Pulse Ox O2 Delivery O2 Flow Rate FiO2 07/14/18 16:00 97.6 64 18 116/74 (88) 95 07/14/18 12:00 97.7 62 18 137/79 (98) 98 07/14/18 08:45 Room Air 07/14/18 08:30 171/67 07/14/18 08:30 63 171/67 07/14/18 08:00 97.8 63 19 171/67 (101) 95 07/14/18 04:00 98.7 55 20 140/57 (84) 96 07/14/18 00:00 98.5 57 20 154/54 (87) 96 07/13/18 21:00 Room Air 07/13/18 20:00 98.7 59 20 144/72 (96) 95 Height (Feet): 5 Height (Inches): 3.00 Weight (Pounds): 137 General Appearance: WD/WN, no acute distress HEENT: normocephalic, atraumatic, anicteric, mucous membranes moist, PERRL Respiratory/Chest: chest wall non-tender, lungs clear, normal breath sounds, no respiratory distress, no accessory muscle use Cardiovascular: normal peripheral pulses, normal rate, regular rhythm, no gallop/murmur, no JVD Abdomen: normal bowel sounds, soft, non tender, no organomegaly, non distended , no mass, no scars, other - suprapubic catheter site looks clean Extremities: no cyanosis, no clubbing Skin: no rash, no lesions, no ulcers Neurologic/Psychiatric: alert, responsive Lymphatic: no neck adenopathy, no groin adenopathy Musculoskeletal: normal muscle bulk, no effusion Current Medications Medications (Trade) Dose Ordered Sig/Charlene Route PRN Reason Start Time Stop Time Status Last Admin Dose Admin Amlodipine Besylate (Norvasc) 5 mg DAILY ORAL 07/11/18 09:00 08/10/18 08:59 07/14/18 08:30 Ampicillin 1 gm/ Sodium Chloride 55 ml @ 110 mls/hr Q6HR IVPB 07/13/18 18:00 07/20/18 17:59 07/14/18 12:15 Aspirin (Ecotrin) 81 mg DAILY ORAL 07/11/18 09:00 08/10/18 08:59 07/14/18 08:30 Citalopram Hydrobromide (celeXA) 40 mg BEDTIME ORAL 07/11/18 21:00 08/10/18 20:59 07/13/18 20:55 Clopidogrel Bisulfate (Plavix) 75 mg DAILY ORAL 07/11/18 09:00 08/10/18 08:59 07/14/18 08:30 Dextrose (Dextrose 50%) 25 ml Q30M PRN IV Hypoglycemia 07/10/18 21:45 08/09/18 21:44 Dextrose (Dextrose 50%) 50 ml Q30M PRN IV Hypoglycemia 07/10/18 21:45 08/09/18 21:44 Enalapril Maleate (Vasotec) 20 mg DAILY ORAL 07/11/18 09:00 08/10/18 08:59 07/14/18 08:30 Ertapenem 0.5 gm/ Sodium Chloride 55 ml @ 110 mls/hr Q24H IVPB 07/12/18 10:00 07/17/18 09:59 07/14/18 10:35 Insulin Aspart (NovoLOG) BEFORE MEALS AND HS SUBQ 07/11/18 06:30 08/10/18 06:29 07/14/18 12:16 Polyethylene Glycol (Miralax) 17 gm HSPRN PRN ORAL Constipation 07/10/18 21:45 08/09/18 21:44 Sodium Chloride 1,000 ml @ 50 mls/hr Q20H IV 07/10/18 22:00 08/09/18 21:59 07/14/18 05:40 Frida Billings M.D. Jul 14, 2018 16:30
--- NOTE | 2018-07-14 17:12 | NUR ---
NURSE NOTES: Patient discharged to [facility] via ambulance. Patient stable upon discharge. Discharge instructions given to ambulance personnel. Report given to Kajal at facility.
--- NOTE | 2018-07-14 21:02 | Cardiology Report ---
APPROVED REPORT EKG Measurement Heart [id number] Atrial fibrillation Possible Anterior infarct, age undetermined Abnormal ECG
--- NOTE | 2018-07-15 12:19 | Discharge Summary ---
Discharge Summary Discharge Summary _ DATE OF ADMISSION: 07/10/2018 DATE OF DISCHARGE: 07/14/2018 DISCHARGED BY: Dr. Suad Loving CONSULTANTS: Dr. Frida Arevalo [facility] HOSPITAL COURSE: Patient is an 87-year-old male, who came from assisted living, [facility], came in for complaints of abdominal pain and vomiting. The patient had UTI as outpatient and was started on p.o. Levaquin; however, did not respond to the antibiotic and started vomiting. He has medical history significant for diabetes, hypertension, dementia, history of recurrent UTI with multidrug- resistant organisms and history of an indwelling suprapubic urinary catheter. On evaluation at ED, blood work showed WBC of 12, hemoglobin 12.9, hematocrit 41.7, platelet count 241, neutrophils 88, lymphocytes 10. BUN was 37, creatinine 1.7. Lactic acid was 2.4. LFTs were normal. Troponin was negative. Urinalysis showed 4+ urine protein, +2 urine ketones, plus for blood , positive nitrite, urine RBCs 10-15, urine WBCs 30-40, leukocyte esterase +3, moderate urine bacteria with few epithelial cells. Patient was admitted for minimum of 2 night stay for diagnosis of urinary tract infection and possible sepsis. Patient was started on Zosyn and vancomycin. Patient had previous history of MRSA, Enterococcus faecalis, pseudomonas and Proteus infection in the urine previously. He was given IV hydration and kidney function was monitored. Metformin was placed on hold. Blood glucose was monitored and patient was placed on insulin sliding scale. He was restarted on Zyprexa 2.5 mg and Celexa 40 mg nightly. Patient has a history of coronary artery disease and was given Plavix 75 mg daily. Urine culture showed growth of MDR E. coli and VRE. He was given ertapenem for E. coli infection and vancomycin was changed to ampicillin to treat VRE. Blood cultures did not isolate any growth. Dementia improved. Zyprexa was discontinued. He was given PT mobility. On 07/13/2018, urologist replaced the suprapubic tube. Kidney function was stable. He was eventually discharged to [facility] to continue 7 more days of ampicillin and Invanz at the shelter. FINAL DIAGNOSES: Catheter associated urinary tract infection with MDR E. coli and VRE Possible sepsis, resolved Acute renal failure secondary to dehydration, improved Toxic encephalopathy, resolved Hypertension Diabetes mellitus Dementia, possible Alzheimer's dementia, improved Depression Coronary artery disease DISPOSITION: Patient was discharged to [facility]. DISCHARGE MEDICATIONS: Refer to Discharge Medication List. I have been assigned to complete a discharge summary on this account, I was not involved with the patient's management. Daphne Samaniego NP Jul 15, 2018 12:19
== END 2018-07-14 17:00 | DRG 698 ==
LOC: EDBD 12:00 → EDUNIT# 12:00 → EDBEDREQ 14:28 → EMR 15:54 → EDBEDREQ 16:07 → 4E 19:31
DX: T83.511A Infection and inflammatory reaction due to indwelling urethral catheter, initial encounter (principal); A41.9 Sepsis, unspecified organism; G92 Toxic encephalopathy; N17.9 Acute kidney failure, unspecified; E86.0 Dehydration; E11.22 Type 2 diabetes mellitus with diabetic chronic kidney disease; G30.9 Alzheimer's disease, unspecified; F02.80 Dementia in other diseases classified elsewhere, unspecified severity, without behavioral disturbance, psychotic disturbance, mood disturbance, and anxiety; F32.9 Major depressive disorder, single episode, unspecified; I25.10 Atherosclerotic heart disease of native coronary artery without angina pectoris; B96.20 Unspecified Escherichia coli [E. coli] as the cause of diseases classified elsewhere; Z16.24 Resistance to multiple antibiotics; B95.2 Enterococcus as the cause of diseases classified elsewhere; Z16.22 Resistance to vancomycin related antibiotics; Z79.02 Long term (current) use of antithrombotics/antiplatelets; Z79.82 Long term (current) use of aspirin; Z79.4 Long term (current) use of insulin; N31.9 Neuromuscular dysfunction of bladder, unspecified; N40.1 Benign prostatic hyperplasia with lower urinary tract symptoms; R33.8 Other retention of urine; I12.9 Hypertensive chronic kidney disease with stage 1 through stage 4 chronic kidney disease, or unspecified chronic kidney disease; N18.9 Chronic kidney disease, unspecified
CPT/HCPCS: 36415; 71045; 80048; 80053; 80202; 81003; 82550; 82553; 82962; 83036; 83605; 83880; 84484; 85007; 85025; 86710; 87040; 87081; 87086; 87181; 93005; 96361; 96365; 96368; 99285; J1815

== ENCOUNTER 2018-08-27 14:19 | Emergency (ER) | payer MEDICARE, MEDICAID ==
[~2018-08-27] VITALS: Ht 172.7 cm; Wt 77.1 kg
[~2018-08-27 14:19] MED LIST changes: +ACETAMINOPHEN160 MG ORAL; +AMPICILLIN SODIU1 G1 IV; +CITALOPRAM HBR40 M1 ORAL; +INVANZ1 G1 IM; +VITAMIN D1000 UNI1 ORAL; +ZYPREXA2.5 MG ORAL
--- NOTE | 2018-08-27 14:25 | Emergency Room Report ---
History of Present Illness General Chief Complaint: Male Urogenital Problems Source: Medical Record, EMS Present Illness HPI Patient is an 87-year-old male brought in by EMS after suprapubic catheter was dislodged. Patient had reportedly been at his baseline mental status. Patient was noted to have continued urine output through the stoma. Catheter was dislodged earlier in the morning. Patient had not been noted to have any fever. Patient was noted to have prior history of dementia. History is markedly limited by patient's mental status. Allergies: Coded Allergies: No Known Allergies (Unverified , 11/26/14) Patient History Past Medical History: see triage record Reviewed Nursing Documentation: PMH: Agreed; PSxH: Agreed Nursing Documentation-PMH Hx Cardiac Problems: Yes Hx Hypertension: Yes Hx Diabetes: Yes - DM II Hx Cancer: No Hx Gastrointestinal Problems: No History Of Psychiatric Problem: Yes - depression, dementia Hx Neurological Problems: Yes - MEMORY LOSS Hx Dementia: Yes Review of Systems All Other Systems: limited - By mental status. Physical Exam Vital Signs Date Time Temp Pulse Resp B/P (MAP) Pulse Ox O2 Delivery O2 Flow Rate FiO2 08/27/18 13:52 98.2 65 18 138/73 93 Room Air General Appearance: alert, Chronically Ill Head: normocephalic, atraumatic ENT: hearing grossly normal, normal voice Neck: full range of motion, supple Respiratory: no respiratory distress, speaking full sentences Cardiovascular #1: no edema Gastrointestinal: normal inspection, non tender, other - suprapubic catheter stoma patent without erythema or bleeding Musculoskeletal: no calf tenderness Neurologic: normal gait Psychiatric: mood/affect normal Skin: no rash Medical Decision Making Diagnostic Impression: Primary Impression: Suprapubic catheter dysfunction ER Course . Patient presented for suprapubic catheter placement. Differential diagnosis includes is not limited to catheter malfunction, urinary tract infection, among others. Patient has a benign exam and does not appear to require any further imaging or laboratory testing at this time patient's catheter was noted to be dislodged. Suprapubic stoma was prepped with Betadine and a 22 Chinese Patricio catheter was placed and balloon was inflated to 10cc. Urine output was good with clear urine. [facility] Last Vital Signs Date Time Temp Pulse Resp B/P (MAP) Pulse Ox O2 Delivery O2 Flow Rate FiO2 4/27/19 13:52 98.2 65 18 138/73 93 Room Air Status: improved Disposition: XFER SNF Condition: Stable Link Carlson MD Aug 27, 2018 14:25
[2018-08-27 14:32] VITALS: BP 132/71
[2018-08-27 16:46] VITALS: BP 128/71
[2018-08-27 16:58] VITALS: BP 128/71
== END 2018-08-27 16:58 ==
LOC: EDBD 14:19 → EMR 15:05
DX: T83.098A Other mechanical complication of other urinary catheter, initial encounter (principal); F03.90 Unspecified dementia, unspecified severity, without behavioral disturbance, psychotic disturbance, mood disturbance, and anxiety; I10 Essential (primary) hypertension; E11.9 Type 2 diabetes mellitus without complications; F32.9 Major depressive disorder, single episode, unspecified; X58.XXXA Exposure to other specified factors, initial encounter; Y92.9 Unspecified place or not applicable
CPT/HCPCS: 99282

== ENCOUNTER 2018-09-07 13:04 | Emergency (ER) | payer MEDICARE, MEDICAID ==
[~2018-09-07] VITALS: Ht 172.7 cm; Wt 77.1 kg
[2018-09-07 13:31] VITALS: BP 133/59
--- NOTE | 2018-09-07 13:34 | NUR ---
ED Nurse Note: pt was brought in by ambulance from assisted living facility c/o dislodge suprapubic catheter, pt non verbal. no complaint of pain. pt able to follow command, not in acute distress. pt connected to monitor with wital signs within normal limits. ermd on bedside, fc g 22 inserted by ermd on the pubis area. pt able to tolerate procedure well. will continue to monitor.
--- NOTE | 2018-09-07 14:33 | Emergency Room Report ---
History of Present Illness General Chief Complaint: Male Urogenital Problems Source: Patient, Medical Record, PMD Present Illness HPI 87-year-old male presents ED for evaluation. Brought in by EMS for suprapubic catheter placement. [facility]. Upon arrival patient showing no signs of distress. No reported fevers chills. No nausea or vomiting. No other aggravating relieving factors. No other associated symptoms Allergies: Coded Allergies: No Known Allergies (Unverified , 11/26/14) Patient History Past Medical History: DM, HTN, dementia Past Surgical History: none Pertinent Family History: none Social History: Denies: smoking, alcohol use, drug use Immunizations: UTD Reviewed Nursing Documentation: PMH: Agreed; PSxH: Agreed Nursing Documentation-PMH Hx Cardiac Problems: Yes Hx Hypertension: Yes Hx Diabetes: Yes - DM II Hx Cancer: No Hx Gastrointestinal Problems: No Hx Neurological Problems: Yes - MEMORY LOSS Hx Dementia: Yes Review of Systems All Other Systems: limited Physical Exam Vital Signs Date Time Temp Pulse Resp B/P (MAP) Pulse Ox O2 Delivery O2 Flow Rate FiO2 09/07/18 12:58 98.2 56 16 92 Room Air 09/07/18 13:31 133/59 Sp02 EP Interpretation: reviewed, normal General Appearance: no apparent distress, non-toxic, other - nonverbal Head: normocephalic Eyes: bilateral eye normal inspection, bilateral eye PERRL ENT: normal ENT inspection Neck: normal inspection Respiratory: chest non-tender, lungs clear, normal breath sounds, speaking full sentences Cardiovascular #1: regular rate, rhythm, no edema Gastrointestinal: other - suprapubic catheter site C/D/I. no drainage Rectal: deferred Genitourinary: no CVA tenderness Musculoskeletal: normal inspection Neurologic: other - nonverbal Psychiatric: other - nonverbal Skin: normal inspection Lymphatic: normal inspection Medical Decision Making Diagnostic Impression: Primary Impression: Suprapubic catheter dysfunction Qualified Codes: T83.010A - Breakdown (mechanical) of cystostomy catheter, initial encounter ER Course Hospital Course 87 yo M presents with pulled out suprapubic catheter Differential diagnoses include: obstruction, UTI, BPH Clinical course Patient placed on stretcher. After initial history and physical I replaced suprapubic catheter without complication Discussed findings with PMD Dr. Loving and son. Both agree the patient can be discharged back to facility. Urology Dr. Arevalo made aware and will see patient in his office as outpatient Diagnosis - suprapubic catheter malfunction Stable and discharged SNF with suprapubic catheter + leg bag. Instructed to followup with PMD/urologist. Return to ED if symptoms recur or worsen Last Vital Signs Date Time Temp Pulse Resp B/P (MAP) Pulse Ox O2 Delivery O2 Flow Rate FiO2 09/07/18 13:31 98.2 58 16 133/59 92 Room Air Status: improved Disposition: XFER SNF Condition: Stable Avery Pereyra MD September 07, 2018 14:33
--- NOTE | 2018-09-07 15:13 | NUR ---
ED Nurse Note: attempted to call [facility], [phone] twice but no avail.
--- NOTE | 2018-09-07 15:15 | NUR ---
ED Nurse Note: called [facility] and report given to
[2018-09-07 15:45] VITALS: BP_SYST 115; BP_SYST 128; BP_DIAS 58; BP_DIAS 75
--- NOTE | 2018-09-07 15:48 | NUR ---
ED Nurse Note: pt was transported back to the [facility] by [facility], pt took all belongings. pt vs within normal limit. will continue to monitor Addendum: 09/07/18 at 1550 by [facility] ED Nurse Note: pt was transported back to the [facility] by [facility], pt took all belongings. pt vs within normal limit.
== END 2018-09-07 15:45 ==
LOC: EDBD 13:04 → EMR 13:49
DX: T83.010A Breakdown (mechanical) of cystostomy catheter, initial encounter (principal); E11.9 Type 2 diabetes mellitus without complications; I10 Essential (primary) hypertension; F03.90 Unspecified dementia, unspecified severity, without behavioral disturbance, psychotic disturbance, mood disturbance, and anxiety
CPT/HCPCS: 51702; 99284

== ENCOUNTER 2018-09-27 13:19 | Inpatient (IN) | payer MEDICARE, MEDICAID ==
[~2018-09-27] VITALS: Ht 165.1 cm; Wt 64.9 kg
[2018-09-27 13:30] VITALS: BP 122/62
--- NOTE | 2018-09-27 13:30 | NUR ---
ED Nurse Note: Pt was BIBA from [facility] due to generalized weakness, and to rule out UTI. pt is non verbal, pt is warm to touch afebrile. pt noted to have suprapubic cath, urine collected and was sent to lab, seen by kayla. blood drawn and sent to lab. pt noted to have slow heart beat, hr 53bpm. ermd aware. will continue to monitor.
--- NOTE | 2018-09-27 14:07 | NUR ---
ED Nurse Note: timber management technician on bedside
[2018-09-27 14:12] LABS: APPEARANCE,URINE SLIGHTLY CLOUDY; BILIRUBIN, URINE NEGATIVE (NEGATIVE); COLOR,URINE PALE YELLOW; GLUCOSE, URINE (UA) NEGATIVE (NEGATIVE); KETONES,URINE NEGATIVE (NEGATIVE); LEUKOCYTE ESTERASE ,URINE 3+ (NEGATIVE); NITRITE,URINE POSITIVE (NEGATIVE); PH,URINE 9 (4.5-8.0); PROTEIN,URINE 3+ (NEGATIVE); UROBILINOGEN,URINE NORMAL MG/DL (0.0-1.0)
[2018-09-27 14:13] LABS: BASOPHILS % (AUTO) 1.1 % (0.0-2.0); EOSINOPHILS % (AUTO) 6.8 % (0.0-3.0); HEMATOCRIT 33.1 % (42.0-52.0); HEMOGLOBIN 10.3 G/DL (14.2-18.0); LYMPHOCYTES % (AUTO) 22.8 % (20.0-45.0); MEAN CORPUSCULAR VOLUME 72 FL (80-99); MONOCYTES % (AUTO) 6.8 % (1.0-10.0); NEUTROPHILS % (AUTO) 62.5 % (45.0-75.0); PLATELET COUNT 201 K/UL (150-450); RED BLOOD COUNT 4.56 M/UL (4.70-6.10); RED CELL DISTRIBUTION WIDTH 14.1 % (11.6-14.8); WHITE BLOOD COUNT 6.2 K/UL (4.8-10.8)
[2018-09-27 14:33] LABS: ANION GAP 6 mmol/L (5-15); BLOOD UREA NITROGEN 34 mg/dL (7-18); CALCIUM 9.4 MG/DL (8.5-10.1); CARBON DIOXIDE 29 MMOL/L (21-32); CHLORIDE 106 MMOL/L (98-107); CREATININE 1.5 MG/DL (0.55-1.30); SODIUM 141 MMOL/L (136-145)
[2018-09-27 14:51] LABS: ALANINE AMINOTRANSFERASE 16 U/L (12-78); ALBUMIN 3.8 G/DL (3.4-5.0); ALBUMIN/GLOBULIN RATIO 1.4 (1.0-2.7); ALKALINE PHOSPHATASE 95 U/L (46-116); ASPARTATE AMINO TRANSFERASE 12 U/L (15-37); BILIRUBIN,TOTAL 0.4 MG/DL (0.2-1.0); CKMB 1.5 NG/ML (0.0-3.6); CREATINE KINASE 46 U/L (26-308)
[2018-09-27] MEDS ORDERED: Ampicillin/Sulbactam Sod 3 GM in NS 110 ML IVPB ONE (15:00)
--- NOTE | 2018-09-27 15:05 | Diagnostic Imaging Report ---
Indication: Dyspnea Comparison: 07/10/2018 A single view chest radiograph was obtained. Findings: Lung volumes are low. There is suggestion of mild basal atelectasis versus scarring. Bones are osteopenic. IMPRESSION: Mild basal atelectasis. No change
[2018-09-27 15:55] VITALS: BP 125/75
[2018-09-27 16:00] VITALS: BP 147/72
--- NOTE | 2018-09-27 16:00 | NUR ---
NURSE NOTES: Received patient from the ER and report from [facility]. Patient alert to name. Patient's skin is intact. IV patent and suprapubic catheter draining well. Patient does not display any signs of distress or SOB. Bed in the lowest position and call light within reach. I will continue to monitor the patient and implement care.
--- NOTE | 2018-09-27 16:00 | NUR ---
ED Nurse Note: Pt is admitted to the hospital, report given to marshall quintero, all pt belongings endorsed to rn, pt trasnfered to tele floor
[2018-09-27] MEDS ORDERED: OXYBUTYNIN CHLOR5 M1 ORAL (16:09)
--- NOTE | 2018-09-27 16:30 | NUR ---
NURSE NOTES: Message left for Dr. Spicer making him aware the patient is on the floor. I request admission orders.
[2018-09-27] MEDS: Oxybutynin 5mg tab ORAL SCH (17:50)
--- NOTE | 2018-09-27 17:52 | Infectious Diseases Prog Note ---
Assessment/Plan Problems: (1) Catheter-associated urinary tract infection Assessment & Plan: will start him on vancomycin and unasyn empirically pending urine culture, recommend urology eval for urine leak (2) Encephalopathy acute Assessment & Plan: suspect due to the above , continue hydration and wide spectrum antibiotics pending cultures (3) Suprapubic catheter dysfunction Assessment & Plan: leaking urine around it, recommend urology eval for possible exchange of his catheter (4) ARF (acute renal failure) Assessment & Plan: due to the above, continue hydration and renally dosed meds Subjective Allergies: Coded Allergies: No Known Allergies (Unverified , 11/26/14) Objective Vital Signs Last 24 Hour Vital Signs Date Time Temp Pulse Resp B/P (MAP) Pulse Ox O2 Delivery O2 Flow Rate FiO2 09/27/18 16:09 Room Air 09/27/18 16:00 98.1 74 20 147/72 (97) 09/27/18 13:30 53 18 122/62 94 Room Air 09/27/18 13:30 53 20 Room Air 09/27/18 13:15 53 18 122/62 (82) 94 Room Air Height (Feet): 5 Height (Inches): 5.00 Weight (Pounds): 140 Laboratory Tests Test 09/27/18 13:50 White Blood Count 6.2 K/UL (4.8-10.8) Red Blood Count 4.56 M/UL (4.70-6.10) L Hemoglobin 10.3 G/DL (14.2-18.0) L Hematocrit 33.1 % (42.0-52.0) L Mean Corpuscular Volume 72 FL (80-99) L Mean Corpuscular Hemoglobin 22.7 PG (27.0-31.0) L Mean Corpuscular Hemoglobin Concent 31.3 G/DL (32.0-36.0) L Red Cell Distribution Width 14.1 % (11.6-14.8) Platelet Count 201 K/UL (150-450) Mean Platelet Volume 5.7 FL (6.5-10.1) L Neutrophils (%) (Auto) 62.5 % (45.0-75.0) Lymphocytes (%) (Auto) 22.8 % (20.0-45.0) Monocytes (%) (Auto) 6.8 % (1.0-10.0) Eosinophils (%) (Auto) 6.8 % (0.0-3.0) H Basophils (%) (Auto) 1.1 % (0.0-2.0) Urine Color Pale yellow Urine Appearance Slightly cloudy Urine pH 9 (4.5-8.0) Urine Specific [place] 1.010 (1.005-1.035) Urine Protein 3+ (NEGATIVE) H Urine Glucose (UA) Negative (NEGATIVE) Urine Ketones Negative (NEGATIVE) Urine Blood 5+ (NEGATIVE) H Urine Nitrite Positive (NEGATIVE) H Urine Bilirubin Negative (NEGATIVE) Urine Urobilinogen Normal MG/DL (0.0-1.0) Urine Leukocyte Esterase 3+ (NEGATIVE) H Urine RBC 10-15 /HPF (0 - 0) H Urine WBC 2-4 /HPF (0 - 0) Urine Squamous Epithelial Cells Occasional /LPF Urine Triple Phosphate Crystals Few /LPF (NONE) H Urine Bacteria Moderate /HPF (NONE) H Sodium Level 141 MMOL/L (136-145) Potassium Level 5.0 MMOL/L (3.5-5.1) Chloride Level 106 MMOL/L (98-107) Carbon Dioxide Level 29 MMOL/L (21-32) Anion Gap 6 mmol/L (5-15) Blood Urea Nitrogen 34 mg/dL (7-18) H Creatinine 1.5 MG/DL (0.55-1.30) H Estimat Glomerular Filtration Rate mL/min (>60) Glucose Level 117 MG/DL (74-106) H Lactic Acid Level 1.60 mmol/L (0.4-2.0) Calcium Level 9.4 MG/DL (8.5-10.1) Total Bilirubin 0.4 MG/DL (0.2-1.0) Aspartate Amino Transf (AST/SGOT) 12 U/L (15-37) L Alanine Aminotransferase (ALT/SGPT) 16 U/L (12-78) Alkaline Phosphatase 95 U/L (46-116) Total Creatine Kinase 46 U/L (26-308) Creatine Kinase MB 1.5 NG/ML (0.0-3.6) Creatine Kinase MB Relative Index 3.2 Troponin I 0.003 ng/mL (0.000-0.056) Total Protein 6.5 G/DL (6.4-8.2) Albumin 3.8 G/DL (3.4-5.0) Globulin 2.7 g/dL Albumin/Globulin Ratio 1.4 (1.0-2.7) Current Medications Medications (Trade) Dose Ordered Sig/Charlene Route PRN Reason Start Time Stop Time Status Last Admin Dose Admin Amlodipine Besylate (Norvasc) 5 mg DAILY ORAL 09/28/18 09:00 10/28/18 08:59 Aspirin (Ecotrin) 81 mg DAILY ORAL 09/28/18 09:00 10/28/18 08:59 Citalopram Hydrobromide (celeXA) 40 mg BEDTIME ORAL 09/27/18 21:00 10/27/18 20:59 Clopidogrel Bisulfate (Plavix) 75 mg DAILY ORAL 09/28/18 09:00 10/28/18 08:59 Metformin HCl (Glucophage) 500 mg TWICE A DAY ORAL 09/27/18 18:00 10/27/18 17:59 UNV Olanzapine (ZyPREXA) 2.5 mg BEDTIME ORAL 09/27/18 21:00 10/28/18 08:59 Oxybutynin Chloride (Ditropan) 2.5 mg BID ORAL 09/27/18 18:00 10/27/18 17:59 Sodium Chloride 1,000 ml @ 60 mls/hr [id number] IV 09/27/18 18:00 10/27/18 17:59 Frida Billings M.D. September 27, 2018 17:52
--- NOTE | 2018-09-27 18:19 | General Progress Note ---
Assessment/Plan Status: stable Assessment/Plan: 1. UTI - cont unasyn IV and Vanco IV and follow up urine and blood cxs. 2. Encephalopathy posssibly 2nd to UTI - 3. Dehydration and azotemia - cont IVF hydration and monitor renal function. 4. leaky suprapubic cath - will consult Dr page. 5. Dementia - 6. DM II - Cont Metformin 500 mg one po bid and monitor renal function. 7. HTN - Cont amlodipine. 8. CAD - cont home Plavix 9. Depression - cont home Celexa. Subjective Date patient seen: September 27, 2018 Time patient seen: 18:00 Constitutional: Reports: weakness HEENT: Reports: no symptoms Cardiovascular: Reports: no symptoms Respiratory: Reports: no symptoms Gastrointestinal/Abdominal: Reports: no symptoms Genitourinary: Reports: other - leaking suprapubic cath Neurologic/Psychiatric: Reports: no symptoms Endocrine: Reports: no symptoms Hematologic/Lymphatic: Reports: no symptoms Allergies: Coded Allergies: No Known Allergies (Unverified , 11/26/14) Subjective This morning, he was confused and was send to ER. afebrile. no sob or chest pain. his suprapubic cath leaking. Objective Last 24 Hour Vital Signs Date Time Temp Pulse Resp B/P (MAP) Pulse Ox O2 Delivery O2 Flow Rate FiO2 09/27/18 16:09 Room Air 09/27/18 16:00 98.1 74 20 147/72 (97) 09/27/18 13:30 53 18 122/62 94 Room Air 09/27/18 13:30 53 20 Room Air 09/27/18 13:15 53 18 122/62 (82) 94 Room Air Laboratory Tests 09/27/18 13:50: White Blood Count 6.2, Red Blood Count 4.56L, Hemoglobin 10.3L, Hematocrit 33.1L , Mean Corpuscular Volume 72L, Mean Corpuscular Hemoglobin 22.7L, Mean Corpuscular Hemoglobin Concent 31.3L, Red Cell Distribution Width 14.1, Platelet Count 201, Mean Platelet Volume 5.7L, Neutrophils (%) (Auto) 62.5, Lymphocytes (%) (Auto) 22.8, Monocytes (%) (Auto) 6.8, Eosinophils (%) (Auto) 6.8H, Basophils (%) (Auto) 1.1, Urine Color Pale yellow, Urine Appearance Slightly cloudy, Urine pH 9, Urine Specific [place] 1.010, Urine Protein 3+H, Urine Glucose (UA) Negative, Urine Ketones Negative, Urine Blood 5+H, Urine Nitrite PositiveH, Urine Bilirubin Negative, Urine Urobilinogen Normal, Urine Leukocyte Esterase 3+H, Urine RBC 10-15H, Urine WBC 2-4, Urine Squamous Epithelial Cells Occasional, Urine Triple Phosphate Crystals FewH, Urine Bacteria ModerateH, Sodium Level 141, Potassium Level 5.0, Chloride Level 106, Carbon Dioxide Level 29, Anion Gap 6, Blood Urea Nitrogen 34H, Creatinine 1.5H, Estimat Glomerular Filtration Rate , Glucose Level 117H, Lactic Acid Level 1.60 , Calcium Level 9.4, Total Bilirubin 0.4, Aspartate Amino Transf (AST/SGOT) 12L , Alanine Aminotransferase (ALT/SGPT) 16, Alkaline Phosphatase 95, Total Creatine Kinase 46, Creatine Kinase MB 1.5, Creatine Kinase MB Relative Index 3.2, Troponin I 0.003, Total Protein 6.5, Albumin 3.8, Globulin 2.7, Albumin/ Globulin Ratio 1.4 Height (Feet): 5 Height (Inches): 5.00 Weight (Pounds): 140 General Appearance: lethargic EENT: normal ENT inspection Neck: non-tender, normal alignment, supple Cardiovascular: normal rate, regular rhythm Respiratory/Chest: lungs clear, normal breath sounds, no respiratory distress Abdomen: normal bowel sounds, non tender, soft Extremities: normal range of motion, non-tender Edema: no edema noted Arm (L), no edema noted Arm (R), no edema noted Leg (L), no edema noted Leg (R), no edema noted Pedal (L), no edema noted Pedal (R), no edema noted Generalized Neurologic: responsive Skin: warm/dry Lymphatic: normal anterior cervical (L), normal anterior cervical (R), normal posterior cervical (L), normal posterior cervical (R), normal submandibular (L) , normal submandibular (R), normal supraclavicular (L), normal supraclavicular ( R), normal axillary (L), normal axillary (R), normal inguinal (L), normal inguinal (R), normal other Suad Loving MD September 27, 2018 18:18
[2018-09-27] MEDS ORDERED: Vancomycin 1.25gm Premix IVPB ONE (19:30)
--- NOTE | 2018-09-27 19:48 | NUR ---
HAND-OFF: Report given to [facility] Harris.
--- NOTE | 2018-09-27 19:49 | NUR ---
NURSE NOTES: Received pt from [facility]. Pt is awake and resting in bed. Suprapubic Patricio draining well. IV site intact and patent. Bed in lowest position and call light within reach. Will continue with plan of care.
[2018-09-27 20:00] VITALS: BP 113/70
[2018-09-27] MEDS: OLANZapine 2.5mg tab ORAL SCH ×2 (20:23→21:00)
[2018-09-27] MEDS: Citalopram Hydrobromide 10mg Tab ORAL SCH ×2 (20:24→21:00)
--- NOTE | 2018-09-27 21:15 | Emergency Room Report ---
History of Present Illness General Chief Complaint: Generalized Weakness Source: Medical Record Present Illness HPI Patient is a 87 year old male sent in from detention for increased lethargy. Patient had prior history of dementia and multidrug resistant organism from urine. He had gradual onset of symptoms. He had recently had suprapubic catheter changed. Patient had not been noted to be febrile. Allergies: Coded Allergies: No Known Allergies (Unverified , 11/26/14) Patient History Past Medical History: see triage record Reviewed Nursing Documentation: PMH: Agreed; PSxH: Agreed Nursing Documentation-PMH Past Medical History: No History, Except For Hx Cardiac Problems: Yes Hx Hypertension: Yes Hx Diabetes: Yes Hx Cancer: No Hx Gastrointestinal Problems: No History Of Psychiatric Problem: Yes - Anxiety, Depression, Dementia, Memory Loss Hx Neurological Problems: Yes Hx Transient Ischemic Attacks: Yes Hx Dementia: Yes Review of Systems All Other Systems: limited - by mental status Physical Exam Vital Signs Date Time Temp Pulse Resp B/P (MAP) Pulse Ox O2 Delivery O2 Flow Rate FiO2 09/27/18 13:15 53 18 122/62 (82) 94 Room Air 09/27/18 15:55 98.0 General Appearance: lethargic, Chronically Ill Eyes: bilateral eye anticteric ENT: dry mucus membranes Neck: limited range of motion Respiratory: lungs clear, normal breath sounds Cardiovascular #1: normal inspection, no edema Gastrointestinal: soft, hernia Genitourinary: other - suprapubic catheter with slight leakage of urine Neurologic: alert, responsive, motor weakness Psychiatric: depressed affect Skin: normal color Medical Decision Making Diagnostic Impression: Primary Impression: Altered mental status Additional Impression: UTI (urinary tract infection) ER Course Patient presented for increased generalized weakness. Differential diagnosis include was not limited to sepsis, urinary tract infection, dehydration, incarcerated hernia among others. Because of complexity of patient's case laboratory testing and imaging studies were ordered. Patient was noted to have prior history of frequent infections from suprapubic catheter. Patient did have multidrug-resistant organism. He was started on IV fluids. Blood cultures were obtained and patient was started on IV antibiotics. Laboratory testing did show some evidence of elevated BUN/creatinine consistent with prerenal azotemia. Patient's initial lactate was noted to be normal. Patient was discussed with Dr. Sweeney for inpatient management due to primary care physician Labs Test 09/27/18 13:50 White Blood Count 6.2 K/UL (4.8-10.8) Red Blood Count 4.56 M/UL (4.70-6.10) Hemoglobin 10.3 G/DL (14.2-18.0) Hematocrit 33.1 % (42.0-52.0) Mean Corpuscular Volume 72 FL (80-99) Mean Corpuscular Hemoglobin 22.7 PG (27.0-31.0) Mean Corpuscular Hemoglobin Concent 31.3 G/DL (32.0-36.0) Red Cell Distribution Width 14.1 % (11.6-14.8) Platelet Count 201 K/UL (150-450) Mean Platelet Volume 5.7 FL (6.5-10.1) Neutrophils (%) (Auto) 62.5 % (45.0-75.0) Lymphocytes (%) (Auto) 22.8 % (20.0-45.0) Monocytes (%) (Auto) 6.8 % (1.0-10.0) Eosinophils (%) (Auto) 6.8 % (0.0-3.0) Basophils (%) (Auto) 1.1 % (0.0-2.0) Urine Color Pale yellow Urine Appearance Slightly cloudy Urine pH 9 (4.5-8.0) Urine Specific [place] 1.010 (1.005-1.035) Urine Protein 3+ (NEGATIVE) Urine Glucose (UA) Negative (NEGATIVE) Urine Ketones Negative (NEGATIVE) Urine Blood 5+ (NEGATIVE) Urine Nitrite Positive (NEGATIVE) Urine Bilirubin Negative (NEGATIVE) Urine Urobilinogen Normal MG/DL (0.0-1.0) Urine Leukocyte Esterase 3+ (NEGATIVE) Urine RBC 10-15 /HPF (0 - 0) Urine WBC 2-4 /HPF (0 - 0) Urine Squamous Epithelial Cells Occasional /LPF Urine Triple Phosphate Crystals Few /LPF (NONE) Urine Bacteria Moderate /HPF (NONE) Sodium Level 141 MMOL/L (136-145) Potassium Level 5.0 MMOL/L (3.5-5.1) Chloride Level 106 MMOL/L (98-107) Carbon Dioxide Level 29 MMOL/L (21-32) Anion Gap 6 mmol/L (5-15) Blood Urea Nitrogen 34 mg/dL (7-18) Creatinine 1.5 MG/DL (0.55-1.30) Estimat Glomerular Filtration Rate mL/min (>60) Glucose Level 117 MG/DL (74-106) Lactic Acid Level 1.60 mmol/L (0.4-2.0) Calcium Level 9.4 MG/DL (8.5-10.1) Total Bilirubin 0.4 MG/DL (0.2-1.0) Aspartate Amino Transf (AST/SGOT) 12 U/L (15-37) Alanine Aminotransferase (ALT/SGPT) 16 U/L (12-78) Alkaline Phosphatase 95 U/L (46-116) Total Creatine Kinase 46 U/L (26-308) Creatine Kinase MB 1.5 NG/ML (0.0-3.6) Creatine Kinase MB Relative Index 3.2 Troponin I 0.003 ng/mL (0.000-0.056) Total Protein 6.5 G/DL (6.4-8.2) Albumin 3.8 G/DL (3.4-5.0) Globulin 2.7 g/dL Albumin/Globulin Ratio 1.4 (1.0-2.7) Last Vital Signs Date Time Temp Pulse Resp B/P (MAP) Pulse Ox O2 Delivery O2 Flow Rate FiO2 09/27/18 16:09 Room Air 09/27/18 16:00 98.1 74 20 147/72 (97) 09/27/18 16:00 96 Status: improved Disposition: ADMITTED INPATIENT Condition: Stable Referrals: Suad Loving MD (PCP) Link Carlson MD September 27, 2018 21:15
[2018-09-27] MEDS: Ampicillin/Sulbactam Sod 3 GM in NS 110 ML IVPB SCH (22:24)
[2018-09-28] VITALS (7 sets, daily range): BP systolic 116–157; BP diastolic 48–81
--- NOTE | 2018-09-28 00:45 | Consultation ---
DATE OF CONSULTATION: 09/27/2018 NOTE: "POOR AUDIO QUALITY" CONSULTING PHYSICIAN: Camilo Arevalo M.D. REFERRING PHYSICIAN: Suad Loving M.D. REASON FOR CONSULTATION: Evaluation of suprapubic tube. HISTORY OF PRESENT ILLNESS: This is an 87-year-old male who is known to me from previous evaluations. The patient was actually seen in my office about 3 weeks ago or so. He has history of chronic suprapubic tube and he has had chronic leakage from the catheter. He had a cystoscopy in the last visit that showed a probable bladder neck contracture or urethral stricture. He has had a suprapubic tube for a number of years and I felt that the catheter was most likely leaking because of the bladder spasms. At that time, I have recommended a trial of low-dose anticholinergics. The patient was earlier admitted to the hospital today because of weakness and was noted to have UTI. Urology evaluation requested. Most of the history was obtained from the chart. PAST MEDICAL HISTORY: Significant for above, also history of coronary artery disease, hypertension, diabetes, and dementia. PAST SURGICAL HISTORY: SP tube. Other surgeries are unknown. CURRENT MEDICATIONS: In the hospital, the patient is on vancomycin, Norvasc, Ecotrin, Plavix, ampicillin/sulbactam, Celexa, Zyprexa, Glucophage, oxybutynin 2.5 mg b.i.d. ALLERGIES: No known drug allergies. SOCIAL HISTORY: He is a resident of a [facility]. REVIEW OF SYSTEMS: Unable to obtain . PHYSICAL EXAMINATION: GENERAL: An elderly male, in no acute distress. HEENT: Temperature is 98.1, blood pressure 147/72. HEENT: Normocephalic. NECK: Supple. ABDOMEN: Soft. GENITOURINARY: Suprapubic tube in place, 24-Hungarian. Urine is yellowish with some debris. EXTREMITIES: No clubbing or cyanosis. LABORATORY DATA: BUN is 34, creatinine 1.5, baseline. Potassium 5.0. White count is 6.2, hemoglobin 10.3, platelets are 201,000. His urinalysis showed 3+ protein, 10-15 rbc's, 2-3 wbc's, moderate bacteria. Urine culture is pending. DIAGNOSTIC IMAGING STUDIES: The patient has not had a recent renal imaging study. He did have renal ultrasound from [address] scan from 2016, which were reviewed. IMPRESSION: 1. 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 2. Possible neurogenic bladder. 3. BPH history. 4. Urethral stricture. 5. Hematuria. 6. Pyuria, probable UTI and colonization of the urine. 7. Proteinuria. 8. Chronic kidney disease. 9. History of small nephrolithiasis. 10. Renal cyst. 11. Renal atrophy. DISCUSSION AND RECOMMENDATIONS: Again, the patient has a chronic suprapubic tube which is in good position and it is draining well. He has some leakage around the catheter, which is chronic. This is probably from bladder spasms. He is continuing oxybutynin as ordered. He does have positive UA, most likely chronically colonized. He is getting antibiotics and we will follow up the results of the culture of the urine and adjust accordingly. He does have baseline mild chronic renal insufficiency. His renal function will be monitored. I will see if his suprapubic tube has been changed recently and if not, it can be hopefully changed during this admission. Thank you for this consultation. Camilo Arevalo M.D. DR: Emanuel JOB#: [id number] CC:
--- NOTE | 2018-09-28 02:00 | Consultation ---
DATE OF CONSULTATION: 09/27/2018 INFECTIOUS DISEASE CONSULTATION CONSULTING PHYSICIAN: Frida Billings M.D. REQUESTING PHYSICIAN: Suad Loving M.D. REASON FOR CONSULTATION: Recurrent catheter-associated urine tract infection. Recommendation for antibiotics treatment. HISTORY OF PRESENT ILLNESS: This is an 87-year-old Farsi speaker male with past medical history of dementia, urinary incontinence, status post suprapubic catheter insertion, recurrent urinary tract infection lately with Enterococcus faecalis, resistant to vancomycin, was brought in by ambulance from [facility] due to generalized weakness and urinary tract infection. The patient was found to have generalized weakness. As per the facility he lives at, there was some urine leaking around the suprapubic catheter. In the ED, urinalysis showed evidence of urine tract infection. His urine was cloudy. So, urine culture was sent and blood culture and the patient was started on intravenous Unasyn empirically and Infectious Disease consultation was requested for antibiotics treatment and further management. As of note, the patient is a poor historian and could not provide good history. History was mainly obtained from the medical record and nursing staff. REVIEW OF SYSTEMS: Unable to obtain. The patient is a poor historian and cannot provide good history. PAST MEDICAL HISTORY: Significant for dementia, urinary incontinence, status post suprapubic catheter placement, hypertension, diabetes, coronary artery disease, and recurrent urinary tract infection. ALLERGIES: He has no known drug allergies. LABORATORY AND DIAGNOSTIC DATA: Labs showed white count of 6.2, hemoglobin of 10.3, and platelet count of 201,000. BUN of 34 and creatinine of 1.5. AST of 12 and ALT of 16. Urinalysis showed positive nitrite and +3 leukocyte esterase with urine bacteria moderate amount. MICROBIOLOGY: Urine culture on 07/11/2018 grew Enterococcus faecalis, resistant to vancomycin and Zyvox. Previously, urine culture grew E. coli in the past prior to that admission. IMAGING: Chest x-ray showed mild basal atelectases. No change. PHYSICAL EXAMINATION: VITAL SIGNS: Temperature 98.1, pulse 74, respirations 20, blood pressure 147/72, and saturation 94% on room air. GENERAL: An elderly male, Farsi speaker, lying in bed, awake, alert, responsive, and not in acute distress. HEENT: Normocephalic and atraumatic. Pupils are reactive to light. Pale sclerae. Dry oral mucosa. No exudate. NECK: Supple. No lymphadenopathy. CARDIOVASCULAR: Regular rate and rhythm. No murmur or gallop. LUNGS: Clear bilaterally. Diminished breathing sounds at the bases. No wheezing or rhonchi. Normal breathing efforts. ABDOMEN: Soft, nontender, and nondistended. Normal bowel sounds. No hepatosplenomegaly. No ascites. Suprapubic catheter site clean and intact, but urine leaking from around the catheter. GENITOURINARY: He has suprapubic catheter in place. Normal genitalia. EXTREMITIES: No edema or cyanosis. No clubbing. SKIN: No rash. No hives. ASSESSMENT AND RECOMMENDATION: 1. Catheter-associated urinary tract infection, recurrent, suspect due to suprapubic catheter dysfunction with urine leaking. We will start him on vancomycin and Unasyn empiric coverage for now. Pending urine culture. Recommend Urology evaluation for urine leak and possible suprapubic catheter change. 2. Encephalopathy, acute in presentation, suspect metabolic due to the above. Continue hydration and wide-spectrum antibiotics treatment pending culture. 3. Suprapubic catheter dysfunction with leaking urine around the catheter. Recommend Urology evaluation for possible exchange of his catheter. Continue local care. 4. Acute renal failure due to the above and dehydration. Continue hydration and renally dosed medicine with close monitor of his urine output. Thank you for the consult. ID will continue to follow. Please feel free to call with any question. Frida Billings M.D. DR: CAROLYN JOB#: [id number] CC:
--- NOTE | 2018-09-28 03:00 | History and Physical Report ---
DATE OF ADMISSION: 09/27/2018 CHIEF COMPLAINT: Confusion and altered x1 day. HISTORY OF PRESENT ILLNESS: This is an 87-year-old male with history of hypertension, diabetes, and chronic indwelling catheterization with suprapubic catheter, who came in for recurrent urinary tract infection. The patient has had a multi-drug resistant urinary tract infection multiple times in the past. Today, the patient was admitted again for urinary tract infection due to confusion after being confused in the assisted living and was transported to the ER for evaluation. PAST MEDICAL HISTORY: Includes history of diabetes, hypertension, coronary artery disease, depression, dementia, and osteoarthritis. Past medical history also includes recurrent urinary tract infection. PAST SURGICAL HISTORY: Includes a history of indwelling catheter placement. ALLERGIES: No known drug allergies. SOCIAL HISTORY: The patient lives at the assisted living. No history of smoking or alcohol use. FAMILY HISTORY: Noncontributory. REVIEW OF SYSTEMS: Negative except for history of present illness. PHYSICAL EXAMINATION: VITAL SIGNS: Include pulse 53, respiration 18, blood pressure 122/62, and pulse ox is 94 percent on room air. GENERAL APPEARANCE: Slightly lethargic. HEENT: Normocephalic and normochromic. Extraocular muscles intact. Throat is clear. LUNGS: Clear to auscultation bilaterally. CARDIOVASCULAR: Regular rate and rhythm. No murmur. No gallop. ABDOMEN: Soft, nontender, and nondistended. Positive bowel sounds. EXTREMITY: No edema, cyanosis, or clubbing. GENITOURINARY: Suprapubic catheter in place and is leaking. BACK: No CVA tenderness. SKIN: No rash. NEUROLOGIC: Respond to commands. LABORATORY AND DIAGNOSTIC DATA: WBC 6.2, hemoglobin 10.3, hematocrit 33.1, and platelet count 201,000. Neutrophils 62.5. Sodium 141, potassium 5, chloride 106, bicarb 29, BUN is 34, creatinine 1.5, and glucose 117. Lactic acid is 1.6. Calcium 9.4. AST 12, ALT 16, and alkaline phosphatase 95. Troponin 0.003. Total protein 6.5. Albumin 3.8. The UA showed slightly cloudy yellow, +3 urine protein, +5 for urine blood, nitrite positive, leukocyte esterase +3, urine rbc 10 to 15, urine wbc 2 to 4, few triple phosphate crystals, and moderate urine bacteria. EKG shows normal sinus bradycardia with first-degree AV block. IMAGING: Chest x-ray was mild basal atelectasis. No change from previous chest x-ray. IMPRESSION: 1. Recurrent urine tract infection with a history of multi-drug resistance bacteria. We will start the patient on Unasyn and cover for MRSA with vancomycin and have ID evaluate the patient. Check UA, urine culture, and blood cultures. 2. Encephalopathy secondary to urinary tract infection. We will hydrate the patient and continue intravenous antibiotics for now. 3. Dehydration and azotemia. We will continue intravenous fluid, intravenous hydration and monitor renal function. 4. Leaking suprapubic catheter. We will consult Dr. Arevalo for possible replacement of the suprapubic catheter. 5. Dementia. 6. Possible vascular dementia. 7. Diabetes type 2. We will continue metformin b.i.d., but I will monitor his renal function. If the creatinine increases, we will change to insulin as inpatient. 8. Hypertension. We will continue home amlodipine. 9. Coronary artery disease. We will continue Plavix and aspirin for now. 10. Depression. We will continue home Celexa. The patient will be admitted for minimum of 2 night stay for diagnosis of urinary tract infection and encephalopathy. Suad Loving M.D. DR: GABBI JOB#: [id number] CC: EMILY
[2018-09-28] MEDS: Ampicillin/Sulbactam Sod 3 GM in NS 110 ML IVPB SCH ×3 (05:53→22:00)
[2018-09-28 06:51] LABS: BASOPHILS % (AUTO) 1.5 % (0.0-2.0); EOSINOPHILS % (AUTO) 6.9 % (0.0-3.0); HEMATOCRIT 31.4 % (42.0-52.0); HEMOGLOBIN 9.7 G/DL (14.2-18.0); LYMPHOCYTES % (AUTO) 12.7 % (20.0-45.0); MEAN CORPUSCULAR VOLUME 72 FL (80-99); MONOCYTES % (AUTO) 5.6 % (1.0-10.0); NEUTROPHILS % (AUTO) 73.2 % (45.0-75.0); PLATELET COUNT 179 K/UL (150-450); RED BLOOD COUNT 4.35 M/UL (4.70-6.10); RED CELL DISTRIBUTION WIDTH 14.1 % (11.6-14.8); WHITE BLOOD COUNT 5.9 K/UL (4.8-10.8)
[2018-09-28 07:27] LABS: ANION GAP 9 mmol/L (5-15); BLOOD UREA NITROGEN 26 mg/dL (7-18); CALCIUM 8.7 MG/DL (8.5-10.1); CARBON DIOXIDE 26 MMOL/L (21-32); CHLORIDE 108 MMOL/L (98-107); CREATININE 1.3 MG/DL (0.55-1.30); POTASSIUM 4.2 MMOL/L (3.5-5.1); SODIUM 143 MMOL/L (136-145)
--- NOTE | 2018-09-28 07:30 | NUR ---
NURSE NOTES: Dr. Uribe inserted a new suprappubic 24 fr catheter w/ 30cc balloon. Draining well. Pt tolerated procedure, currently sleeping.
--- NOTE | 2018-09-28 07:45 | Urology Progress Note ---
Assessment/Plan Status: stable Assessment/Plan: 1. 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 2. Possible neurogenic bladder. 3. BPH history. 4. Urethral stricture. 5. Hematuria. 6. Pyuria, probable UTI and colonization of the urine. 7. Proteinuria. 8. Chronic kidney disease. 9. History of small nephrolithiasis. 10. Renal cyst. 11. Renal atrophy. cont with abx as ordered f/u on cx's I personally removed old SP tube new 24f em placed hand irrigated and position is satisfactory monitor clinically consider renal imaging study Subjective Allergies: Coded Allergies: No Known Allergies (Unverified , 11/26/14) Subjective all noted, looks comfortable Objective Last 24 Hour Vital Signs Date Time Temp Pulse Resp B/P (MAP) Pulse Ox O2 Delivery O2 Flow Rate FiO2 09/28/18 04:00 50 09/28/18 04:00 98.3 50 18 125/56 (79) 99 09/28/18 00:00 52 09/28/18 00:00 97.4 52 20 129/81 (97) 96 09/27/18 21:00 Room Air 09/27/18 20:00 58 09/27/18 20:00 97.5 58 18 113/70 (84) 93 09/27/18 16:09 Room Air 09/27/18 16:00 98.1 74 20 147/72 (97) 09/27/18 16:00 98.0 65 16 125/75 96 Room Air 09/27/18 15:55 98.0 65 16 125/75 96 Room Air 09/27/18 13:30 53 18 122/62 94 Room Air 09/27/18 13:30 53 20 Room Air 09/27/18 13:15 53 18 122/62 (82) 94 Room Air Intake and Output 09/27/18 09/28/18 19:00 07:00 Intake Total 2220 ml Output Total 650 ml 500 ml Balance 1570 ml -500 ml Intake IV Total 2220 ml Output Urine Total 650 ml 500 ml Microbiology Date/Time Source Procedure Growth Status 09/27/18 16:00 Rectum Received Current Medications Medications (Trade) Dose Ordered Sig/Charlene Route PRN Reason Start Time Stop Time Status Last Admin Dose Admin Amlodipine Besylate (Norvasc) 5 mg DAILY ORAL 09/28/18 09:00 10/28/18 08:59 Ampicillin Sodium/ Sulbactam Sodium 3 gm/Sodium Chloride 110 ml @ 220 mls/hr Q8HR IVPB 09/27/18 22:00 10/04/18 21:59 09/28/18 05:53 Aspirin (Ecotrin) 81 mg DAILY ORAL 09/28/18 09:00 10/28/18 08:59 Citalopram Hydrobromide (celeXA) 40 mg BEDTIME ORAL 09/27/18 21:00 10/27/18 20:59 Clopidogrel Bisulfate (Plavix) 75 mg DAILY ORAL 09/28/18 09:00 10/28/18 08:59 Metformin HCl (Glucophage) 500 mg TWICE A DAY ORAL 09/28/18 09:00 10/28/18 08:59 Olanzapine (ZyPREXA) 2.5 mg BEDTIME ORAL 09/27/18 21:00 10/28/18 08:59 Oxybutynin Chloride (Ditropan) 2.5 mg BID ORAL 09/27/18 18:00 10/27/18 17:59 09/27/18 17:50 Sodium Chloride 1,000 ml @ 60 mls/hr [id number] IV 09/27/18 18:00 10/27/18 17:59 09/27/18 17:50 Vancomycin HCl (Vanco rx to dose) 1 ea DAILY PRN MISC Per rx protocol 09/27/18 18:00 10/27/18 17:59 Vancomycin HCl 500 mg/Dextrose 110 ml @ 110 mls/hr Q24H IVPB 09/28/18 20:00 10/03/18 19:59 Laboratory Tests 09/27/18 13:50: White Blood Count 6.2, Red Blood Count 4.56L, Hemoglobin 10.3L, Hematocrit 33.1L , Mean Corpuscular Volume 72L, Mean Corpuscular Hemoglobin 22.7L, Mean Corpuscular Hemoglobin Concent 31.3L, Red Cell Distribution Width 14.1, Platelet Count 201, Mean Platelet Volume 5.7L, Neutrophils (%) (Auto) 62.5, Lymphocytes (%) (Auto) 22.8, Monocytes (%) (Auto) 6.8, Eosinophils (%) (Auto) 6.8H, Basophils (%) (Auto) 1.1, Urine Color Pale yellow, Urine Appearance Slightly cloudy, Urine pH 9, Urine Specific [place] 1.010, Urine Protein 3+H, Urine Glucose (UA) Negative, Urine Ketones Negative, Urine Blood 5+H, Urine Nitrite PositiveH, Urine Bilirubin Negative, Urine Urobilinogen Normal, Urine Leukocyte Esterase 3+H, Urine RBC 10-15H, Urine WBC 2-4, Urine Squamous Epithelial Cells Occasional, Urine Triple Phosphate Crystals FewH, Urine Bacteria ModerateH, Sodium Level 141, Potassium Level 5.0, Chloride Level 106, Carbon Dioxide Level 29, Anion Gap 6, Blood Urea Nitrogen 34H, Creatinine 1.5H, Estimat Glomerular Filtration Rate , Glucose Level 117H, Lactic Acid Level 1.60 , Calcium Level 9.4, Total Bilirubin 0.4, Aspartate Amino Transf (AST/SGOT) 12L , Alanine Aminotransferase (ALT/SGPT) 16, Alkaline Phosphatase 95, Total Creatine Kinase 46, Creatine Kinase MB 1.5, Creatine Kinase MB Relative Index 3.2, Troponin I 0.003, Total Protein 6.5, Albumin 3.8, Globulin 2.7, Albumin/ Globulin Ratio 1.4 09/28/18 06:13: White Blood Count 5.9, Red Blood Count 4.35L, Hemoglobin 9.7L, Hematocrit 31.4L , Mean Corpuscular Volume 72L, Mean Corpuscular Hemoglobin 22.3L, Mean Corpuscular Hemoglobin Concent 30.8L, Red Cell Distribution Width 14.1, Platelet Count 179, Mean Platelet Volume 6.3L, Neutrophils (%) (Auto) 73.2, Lymphocytes (%) (Auto) 12.7L, Monocytes (%) (Auto) 5.6, Eosinophils (%) (Auto) 6.9H, Basophils (%) (Auto) 1.5, Sodium Level 143, Potassium Level 4.2, Chloride Level 108H, Carbon Dioxide Level 26, Anion Gap 9, Blood Urea Nitrogen 26H, Creatinine 1.3, Estimat Glomerular Filtration Rate , Glucose Level 112H, Calcium Level 8.7 Height (Feet): 5 Height (Inches): 5.00 Weight (Pounds): 143 Objective exam stable Camilo Arevalo MD September 28, 2018 07:45
--- NOTE | 2018-09-28 07:46 | NUR ---
HAND-OFF: Report given to RHYS Vazquez.
--- NOTE | 2018-09-28 07:52 | NUR ---
NURSE NOTES: Patient is alert and awake. Patient is Farsi speaking. No s/s of discomfort. Suprapubic catheter is secured and patent. Side rails are up x2. Bed is locked, bed alarm is on, bed is in lowest position. Will continue to monitor.
[2018-09-28] MEDS: metFORMIN 500mg tab ORAL SCH ×2 (08:41→17:24)
[2018-09-28] MEDS: Aspirin EC 81mg tab ORAL SCH (08:41)
[2018-09-28] MEDS: Oxybutynin 5mg tab ORAL SCH ×2 (08:41→17:25)
--- NOTE | 2018-09-28 08:54 | General Progress Note ---
Assessment/Plan Status: stable Assessment/Plan: 1. Recurrnt UTI with hx of multi-drug resistance - cont unasyn IV and Vanco IV and follow up urine and blood cxs. 2. Encephalopathy 2nd to UTI - cont IV Abx and hydration. 3. Dehydration and azotemia - cont IVF hydration and monitor renal function. 4. leaky suprapubic cath - suprapubic cath changed by Dr page. 5. Dementia - stable. 6. DM II - Cont Metformin 500 mg one po bid and monitor renal function. 7. HTN - Cont amlodipine. 8. CAD - cont home Plavix 9. Depression - cont home Celexa. Subjective Date patient seen: September 28, 2018 Time patient seen: 08:30 Constitutional: Reports: weakness HEENT: Reports: no symptoms Cardiovascular: Reports: no symptoms Respiratory: Reports: no symptoms Gastrointestinal/Abdominal: Reports: no symptoms Genitourinary: Reports: no symptoms Neurologic/Psychiatric: Reports: no symptoms Endocrine: Reports: no symptoms Hematologic/Lymphatic: Reports: no symptoms Allergies: Coded Allergies: No Known Allergies (Unverified , 11/26/14) Subjective This morning, he still is confused. afebrile. no sob or chest pain. his suprapubic cath was changed by Dr page. afebrile. No sob or chest pain. Objective Last 24 Hour Vital Signs Date Time Temp Pulse Resp B/P (MAP) Pulse Ox O2 Delivery O2 Flow Rate FiO2 09/28/18 04:00 50 09/28/18 04:00 98.3 50 18 125/56 (79) 99 09/28/18 00:00 52 09/28/18 00:00 97.4 52 20 129/81 (97) 96 09/27/18 21:00 Room Air 09/27/18 20:00 58 09/27/18 20:00 97.5 58 18 113/70 (84) 93 09/27/18 16:09 Room Air 09/27/18 16:00 98.1 74 20 147/72 (97) 09/27/18 16:00 98.0 65 16 125/75 96 Room Air 09/27/18 15:55 98.0 65 16 125/75 96 Room Air 09/27/18 13:30 53 18 122/62 94 Room Air 09/27/18 13:30 53 20 Room Air 09/27/18 13:15 53 18 122/62 (82) 94 Room Air Intake and Output 09/27/18 09/28/18 19:00 07:00 Intake Total 2220 ml Output Total 650 ml 500 ml Balance 1570 ml -500 ml Intake IV Total 2220 ml Output Urine Total 650 ml 500 ml Laboratory Tests 09/27/18 13:50: White Blood Count 6.2, Red Blood Count 4.56L, Hemoglobin 10.3L, Hematocrit 33.1L , Mean Corpuscular Volume 72L, Mean Corpuscular Hemoglobin 22.7L, Mean Corpuscular Hemoglobin Concent 31.3L, Red Cell Distribution Width 14.1, Platelet Count 201, Mean Platelet Volume 5.7L, Neutrophils (%) (Auto) 62.5, Lymphocytes (%) (Auto) 22.8, Monocytes (%) (Auto) 6.8, Eosinophils (%) (Auto) 6.8H, Basophils (%) (Auto) 1.1, Urine Color Pale yellow, Urine Appearance Slightly cloudy, Urine pH 9, Urine Specific [place] 1.010, Urine Protein 3+H, Urine Glucose (UA) Negative, Urine Ketones Negative, Urine Blood 5+H, Urine Nitrite PositiveH, Urine Bilirubin Negative, Urine Urobilinogen Normal, Urine Leukocyte Esterase 3+H, Urine RBC 10-15H, Urine WBC 2-4, Urine Squamous Epithelial Cells Occasional, Urine Triple Phosphate Crystals FewH, Urine Bacteria ModerateH, Sodium Level 141, Potassium Level 5.0, Chloride Level 106, Carbon Dioxide Level 29, Anion Gap 6, Blood Urea Nitrogen 34H, Creatinine 1.5H, Estimat Glomerular Filtration Rate , Glucose Level 117H, Lactic Acid Level 1.60 , Calcium Level 9.4, Total Bilirubin 0.4, Aspartate Amino Transf (AST/SGOT) 12L , Alanine Aminotransferase (ALT/SGPT) 16, Alkaline Phosphatase 95, Total Creatine Kinase 46, Creatine Kinase MB 1.5, Creatine Kinase MB Relative Index 3.2, Troponin I 0.003, Total Protein 6.5, Albumin 3.8, Globulin 2.7, Albumin/ Globulin Ratio 1.4 09/28/18 06:13: White Blood Count 5.9, Red Blood Count 4.35L, Hemoglobin 9.7L, Hematocrit 31.4L , Mean Corpuscular Volume 72L, Mean Corpuscular Hemoglobin 22.3L, Mean Corpuscular Hemoglobin Concent 30.8L, Red Cell Distribution Width 14.1, Platelet Count 179, Mean Platelet Volume 6.3L, Neutrophils (%) (Auto) 73.2, Lymphocytes (%) (Auto) 12.7L, Monocytes (%) (Auto) 5.6, Eosinophils (%) (Auto) 6.9H, Basophils (%) (Auto) 1.5, Sodium Level 143, Potassium Level 4.2, Chloride Level 108H, Carbon Dioxide Level 26, Anion Gap 9, Blood Urea Nitrogen 26H, Creatinine 1.3, Estimat Glomerular Filtration Rate , Glucose Level 112H, Calcium Level 8.7 Height (Feet): 5 Height (Inches): 5.00 Weight (Pounds): 143 General Appearance: confused Neck: non-tender, supple Cardiovascular: normal rate, regular rhythm Respiratory/Chest: chest wall non-tender, lungs clear, normal breath sounds Abdomen: non tender, soft, no organomegaly Extremities: normal range of motion, non-tender Edema: no edema noted Arm (L), no edema noted Arm (R), no edema noted Leg (L), no edema noted Leg (R), no edema noted Pedal (L), no edema noted Pedal (R), no edema noted Generalized Neurologic: responsive, motor weakness Skin: warm/dry Lymphatic: normal anterior cervical (L), normal anterior cervical (R), normal posterior cervical (L), normal posterior cervical (R), normal submandibular (L) , normal submandibular (R), normal supraclavicular (L), normal supraclavicular ( R), normal axillary (L), normal axillary (R), normal inguinal (L), normal inguinal (R), normal other Suad Loving MD September 28, 2018 08:54
[2018-09-28] MEDS ORDERED: OLANZapine 2.5mg tab ORAL SCH (09:00)
--- NOTE | 2018-09-28 12:02 | Cardiac Electrophysiology PN ---
Subjective Subjective [id number] Objective Last 24 Hour Vital Signs Date Time Temp Pulse Resp B/P (MAP) Pulse Ox O2 Delivery O2 Flow Rate FiO2 09/28/18 08:45 Room Air 09/28/18 08:41 57 122/60 09/28/18 08:00 52 09/28/18 08:00 98.8 57 23 122/60 (80) 98 09/28/18 04:00 50 09/28/18 04:00 98.3 50 18 125/56 (79) 99 09/28/18 00:00 52 09/28/18 00:00 97.4 52 20 129/81 (97) 96 09/27/18 21:00 Room Air 09/27/18 20:00 58 09/27/18 20:00 97.5 58 18 113/70 (84) 93 09/27/18 16:09 Room Air 09/27/18 16:00 98.1 74 20 147/72 (97) 09/27/18 16:00 98.0 65 16 125/75 96 Room Air 09/27/18 15:55 98.0 65 16 125/75 96 Room Air 09/27/18 13:30 53 18 122/62 94 Room Air 09/27/18 13:30 53 20 Room Air 09/27/18 13:15 53 18 122/62 (82) 94 Room Air Intake and Output 09/27/18 09/28/18 19:00 07:00 Intake Total 2220 ml Output Total 650 ml 500 ml Balance 1570 ml -500 ml Intake IV Total 2220 ml Output Urine Total 650 ml 500 ml Laboratory Tests Test 09/27/18 13:50 09/28/18 06:13 White Blood Count 6.2 K/UL (4.8-10.8) 5.9 K/UL (4.8-10.8) Red Blood Count 4.56 M/UL (4.70-6.10) L 4.35 M/UL (4.70-6.10) L Hemoglobin 10.3 G/DL (14.2-18.0) L 9.7 G/DL (14.2-18.0) L Hematocrit 33.1 % (42.0-52.0) L 31.4 % (42.0-52.0) L Mean Corpuscular Volume 72 FL (80-99) L 72 FL (80-99) L Mean Corpuscular Hemoglobin 22.7 PG (27.0-31.0) L 22.3 PG (27.0-31.0) L Mean Corpuscular Hemoglobin Concent 31.3 G/DL (32.0-36.0) L 30.8 G/DL (32.0-36.0) L Red Cell Distribution Width 14.1 % (11.6-14.8) 14.1 % (11.6-14.8) Platelet Count 201 K/UL (150-450) 179 K/UL (150-450) Mean Platelet Volume 5.7 FL (6.5-10.1) L 6.3 FL (6.5-10.1) L Neutrophils (%) (Auto) 62.5 % (45.0-75.0) 73.2 % (45.0-75.0) Lymphocytes (%) (Auto) 22.8 % (20.0-45.0) 12.7 % (20.0-45.0) L Monocytes (%) (Auto) 6.8 % (1.0-10.0) 5.6 % (1.0-10.0) Eosinophils (%) (Auto) 6.8 % (0.0-3.0) H 6.9 % (0.0-3.0) H Basophils (%) (Auto) 1.1 % (0.0-2.0) 1.5 % (0.0-2.0) Urine Color Pale yellow Urine Appearance Slightly cloudy Urine pH 9 (4.5-8.0) Urine Specific [place] 1.010 (1.005-1.035) Urine Protein 3+ (NEGATIVE) H Urine Glucose (UA) Negative (NEGATIVE) Urine Ketones Negative (NEGATIVE) Urine Blood 5+ (NEGATIVE) H Urine Nitrite Positive (NEGATIVE) H Urine Bilirubin Negative (NEGATIVE) Urine Urobilinogen Normal MG/DL (0.0-1.0) Urine Leukocyte Esterase 3+ (NEGATIVE) H Urine RBC 10-15 /HPF (0 - 0) H Urine WBC 2-4 /HPF (0 - 0) Urine Squamous Epithelial Cells Occasional /LPF Urine Triple Phosphate Crystals Few /LPF (NONE) H Urine Bacteria Moderate /HPF (NONE) H Sodium Level 141 MMOL/L (136-145) 143 MMOL/L (136-145) Potassium Level 5.0 MMOL/L (3.5-5.1) 4.2 MMOL/L (3.5-5.1) Chloride Level 106 MMOL/L (98-107) 108 MMOL/L (98-107) H Carbon Dioxide Level 29 MMOL/L (21-32) 26 MMOL/L (21-32) Anion Gap 6 mmol/L (5-15) 9 mmol/L (5-15) Blood Urea Nitrogen 34 mg/dL (7-18) H 26 mg/dL (7-18) H Creatinine 1.5 MG/DL (0.55-1.30) H 1.3 MG/DL (0.55-1.30) Estimat Glomerular Filtration Rate mL/min (>60) mL/min (>60) Glucose Level 117 MG/DL (74-106) H 112 MG/DL (74-106) H Lactic Acid Level 1.60 mmol/L (0.4-2.0) Calcium Level 9.4 MG/DL (8.5-10.1) 8.7 MG/DL (8.5-10.1) Total Bilirubin 0.4 MG/DL (0.2-1.0) Aspartate Amino Transf (AST/SGOT) 12 U/L (15-37) L Alanine Aminotransferase (ALT/SGPT) 16 U/L (12-78) Alkaline Phosphatase 95 U/L (46-116) Total Creatine Kinase 46 U/L (26-308) Creatine Kinase MB 1.5 NG/ML (0.0-3.6) Creatine Kinase MB Relative Index 3.2 Troponin I 0.003 ng/mL (0.000-0.056) Total Protein 6.5 G/DL (6.4-8.2) Albumin 3.8 G/DL (3.4-5.0) Globulin 2.7 g/dL Albumin/Globulin Ratio 1.4 (1.0-2.7) Microbiology Date/Time Source Procedure Growth Status 09/27/18 18:00 Urine,Suprapubic Urine Culture - Preliminary Resulted 09/27/18 13:50 Urine,Clean Catch Urine Culture - Preliminary Resulted 09/27/18 16:00 Rectum Received Cameron Cox MD September 28, 2018 12:02
--- NOTE | 2018-09-28 12:07 | NUR ---
NURSE NOTES: Patient noted pulling at suprapubic catheter, patient also noted trying to get out of bed, and kicking at RN. Dr. Sweeney notified. New order received for bilateral soft wrist restraints.
--- NOTE | 2018-09-28 13:38 | NUR ---
CARDIOLOGY: PT WAS AGGRESSIVE HE REFUSED THE 2-D ECHO WILL TRY TMRW AGAIN . NURSE KORY IS AWARE.
--- NOTE | 2018-09-28 15:47 | NUR ---
NURSE NOTES: Patient noted to have one episode of bradycardia 39 and 2nd degree heart block. Dr. Loving notified. Dr. Alarcon came to see patient. Dr. Cox entered orders for patient.
--- NOTE | 2018-09-28 16:33 | Cardiology Report ---
APPROVED REPORT EKG Measurement Heart [id number] Sinus bradycardia with 1st degree AV block Low voltage QRS Borderline ECG
--- NOTE | 2018-09-28 17:25 | NUR ---
CASE MANAGEMENT:REVIEW 87 YR OLD MALE BIBA FROM [facility] CC; GENERALIZED WEAKNESS SI: ALTERED MENTAL STATUS. UTI 98.0 53 18 122/62 94% ON RA H/H-10.3/33.1 BUN+34 CR+1.5 IS: 1L NS BOLUS IV AMPICILLIN X1 BLOOD CX URINE REFLEX : TO TELEMETRY
--- NOTE | 2018-09-28 17:54 | Infectious Diseases Prog Note ---
Assessment/Plan Problems: (1) Catheter-associated urinary tract infection Assessment & Plan: continue vancomycin and unasyn empirically pending urine culture, was seen by urology for urine leak, and had his suprapubic catheter changed (2) Encephalopathy acute Assessment & Plan: suspect due to the above , continue hydration and wide spectrum antibiotics pending cultures (3) Suprapubic catheter dysfunction Assessment & Plan: leaking urine around it, had urology eval and his catheter was changed (4) ARF (acute renal failure) Assessment & Plan: due to the above, continue hydration and renally dosed meds Subjective ROS Limited/Unobtainable: Yes Allergies: Coded Allergies: No Known Allergies (Unverified , 11/26/14) Subjective he was awake and alert, responds to verbal commands, but still confused , in soft restrains , afebrile, still has urine leaking around the suprapubic catheter Objective Vital Signs Last 24 Hour Vital Signs Date Time Temp Pulse Resp B/P (MAP) Pulse Ox O2 Delivery O2 Flow Rate FiO2 09/28/18 16:00 67 09/28/18 16:00 98.2 73 23 146/77 (100) 98 09/28/18 12:00 63 09/28/18 12:00 98.2 58 20 116/48 (70) 93 09/28/18 08:45 Room Air 09/28/18 08:41 57 122/60 09/28/18 08:00 52 09/28/18 08:00 98.8 57 23 122/60 (80) 98 09/28/18 04:00 50 09/28/18 04:00 98.3 50 18 125/56 (79) 99 09/28/18 00:00 52 09/28/18 00:00 97.4 52 20 129/81 (97) 96 09/27/18 21:00 Room Air 09/27/18 20:00 58 09/27/18 20:00 97.5 58 18 113/70 (84) 93 Height (Feet): 5 Height (Inches): 5.00 Weight (Pounds): 143 General Appearance: WD/WN, cachetic, other - confused HEENT: normocephalic, atraumatic, anicteric, mucous membranes moist, PERRL Respiratory/Chest: chest wall non-tender, lungs clear, normal breath sounds, no respiratory distress, no accessory muscle use Cardiovascular: normal peripheral pulses, normal rate, regular rhythm, no gallop/murmur, no JVD Abdomen: normal bowel sounds, soft, non tender, no organomegaly, non distended , no mass, no scars Genitourinary: normal external genitalia, other - suprapubic catheter in place with urine leaking from around it Extremities: no cyanosis, no clubbing Skin: no rash, no lesions, no ulcers Neurologic/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: 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, alert, responsive Lymphatic: no neck adenopathy, no groin adenopathy Musculoskeletal: normal muscle bulk, no effusion Microbiology Date/Time Source Procedure Growth Status 09/27/18 18:00 Urine,Suprapubic Urine Culture - Preliminary Resulted 09/27/18 13:50 Urine,Clean Catch Urine Culture - Preliminary Resulted 09/27/18 16:00 Rectum Received Laboratory Tests Test 09/28/18 06:13 White Blood Count 5.9 K/UL (4.8-10.8) Red Blood Count 4.35 M/UL (4.70-6.10) L Hemoglobin 9.7 G/DL (14.2-18.0) L Hematocrit 31.4 % (42.0-52.0) L Mean Corpuscular Volume 72 FL (80-99) L Mean Corpuscular Hemoglobin 22.3 PG (27.0-31.0) L Mean Corpuscular Hemoglobin Concent 30.8 G/DL (32.0-36.0) L Red Cell Distribution Width 14.1 % (11.6-14.8) Platelet Count 179 K/UL (150-450) Mean Platelet Volume 6.3 FL (6.5-10.1) L Neutrophils (%) (Auto) 73.2 % (45.0-75.0) Lymphocytes (%) (Auto) 12.7 % (20.0-45.0) L Monocytes (%) (Auto) 5.6 % (1.0-10.0) Eosinophils (%) (Auto) 6.9 % (0.0-3.0) H Basophils (%) (Auto) 1.5 % (0.0-2.0) Sodium Level 143 MMOL/L (136-145) Potassium Level 4.2 MMOL/L (3.5-5.1) Chloride Level 108 MMOL/L (98-107) H Carbon Dioxide Level 26 MMOL/L (21-32) Anion Gap 9 mmol/L (5-15) Blood Urea Nitrogen 26 mg/dL (7-18) H Creatinine 1.3 MG/DL (0.55-1.30) Estimat Glomerular Filtration Rate mL/min (>60) Glucose Level 112 MG/DL (74-106) H Calcium Level 8.7 MG/DL (8.5-10.1) Current Medications Medications (Trade) Dose Ordered Sig/Charlene Route PRN Reason Start Time Stop Time Status Last Admin Dose Admin Amlodipine Besylate (Norvasc) 5 mg DAILY ORAL 09/28/18 09:00 10/28/18 08:59 09/28/18 08:41 Ampicillin Sodium/ Sulbactam Sodium 3 gm/Sodium Chloride 110 ml @ 220 mls/hr Q8HR IVPB 09/27/18 22:00 10/04/18 21:59 09/28/18 14:23 Aspirin (Ecotrin) 81 mg DAILY ORAL 09/28/18 09:00 10/28/18 08:59 09/28/18 08:41 Citalopram Hydrobromide (celeXA) 40 mg BEDTIME ORAL 09/27/18 21:00 10/27/18 20:59 Clopidogrel Bisulfate (Plavix) 75 mg DAILY ORAL 09/28/18 09:00 10/28/18 08:59 09/28/18 08:41 Metformin HCl (Glucophage) 500 mg TWICE A DAY ORAL 09/28/18 09:00 10/28/18 08:59 09/28/18 17:24 Olanzapine (ZyPREXA) 2.5 mg BEDTIME ORAL 09/27/18 21:00 10/28/18 08:59 Oxybutynin Chloride (Ditropan) 2.5 mg BID ORAL 09/27/18 18:00 10/27/18 17:59 09/28/18 17:25 Sodium Chloride 1,000 ml @ 60 mls/hr [id number] IV 09/27/18 18:00 10/27/18 17:59 09/28/18 10:45 Vancomycin HCl (Vanco rx to dose) 1 ea DAILY PRN MISC Per rx protocol 09/27/18 18:00 10/27/18 17:59 Vancomycin HCl 750 mg/Sodium Chloride 275 ml @ 183.333 mls/hr Q24H IVPB 09/28/18 20:00 10/03/18 19:59 Frida Billings M.D. September 28, 2018 17:54
--- NOTE | 2018-09-28 19:36 | NUR ---
NURSE NOTES: Got report from Taylor JOINER. Pt in stable condition. Denies any pain. No s/s of distress or discomfort noted. Pt resting in bed comfortably. Bed in low and locked position, call light within reach, bedside table within reach. Continue to monitor.
--- NOTE | 2018-09-28 19:37 | NUR ---
HAND-OFF: Report given to RHYS Thomas.
[2018-09-28] MEDS ORDERED: ASPIRIN EC81 MG ORAL (19:48)
[2018-09-28] MEDS ORDERED: Vancomycin 750 MG in NS 275 ML IVPB SCH (20:00)
[2018-09-28] MEDS ORDERED: Vancomycin 500mg/D5W 110ml IVPB SCH ×2 (20:00)
[2018-09-28] MEDS: OLANZapine 2.5mg tab ORAL SCH ×2 (20:53→20:56)
[2018-09-28] MEDS: Citalopram Hydrobromide 10mg Tab ORAL SCH ×2 (20:53→20:56)
--- NOTE | 2018-09-28 23:15 | Consultation ---
DATE OF CONSULTATION: 09/28/2018 CARDIOLOGY CONSULTATION CONSULTING PHYSICIAN: Cameron Cox M.D. REFERRING PHYSICIAN: Suad Loving M.D. REASON FOR CONSULTATION: Second-degree AV block and first-degree AV block. HISTORY OF PRESENT ILLNESS: The patient is a very pleasant 87-year-old [place] gentleman with history of hypertension, diabetes, coronary artery disease, and depression as well as chronic indwelling suprapubic catheter, who came to the emergency room for recurrent urinary tract infection. The patient has had multidrug-resistant urinary tract infection multiple times in the past. While the patient was on telemetry, the patient was noted to have episodes of nonconducted P waves, hence there was a question of [place]itz type II heart block. The patient at baseline has first-degree AV block with UT interval of 300 milliseconds. The patient denies any syncope, presyncope, chest pain, or shortness of breath. REVIEW OF SYSTEMS: Negative other than what is mentioned in the history of present illness. PAST MEDICAL HISTORY: 1. Hypertension. 2. Diabetes. 3. Coronary artery disease. 4. Depression. 5. Dementia. 6. Osteoarthritis. 7. Recurrent urinary tract infection. PAST SURGICAL HISTORY: Include chronic indwelling catheter. ALLERGIES: He has no known drug allergies. SOCIAL HISTORY: He lives in assisted living. Does not smoke or drink alcohol. PHYSICAL EXAMINATION: VITAL SIGNS: Show blood pressure of /60, pulse , respirations 18, and he is afebrile. HEAD AND NECK: Showed no JVD or carotid bruit. LUNGS: Clear. CARDIOVASCULAR: Shows regular S1 and S2. Bradycardic. ABDOMEN: Soft. Status post suprapubic catheter. EXTREMITIES: No pitting edema. LABORATORY AND DIAGNOSTIC DATA: His labs show white count of 5.9, hemoglobin 9.7, hematocrit 31.5, and platelet count 179,000. Sodium 143, potassium 4.2, BUN of 26, creatinine 1.3. Troponin is negative. Glucose is 112. Urinalysis showed 5+ blood, positive nitrite. A 12-lead EKG showed sinus rhythm with first-degree AV block with UT interval of 300 milliseconds. Telemetry strip showed episodes of dropped QRS complexes, most likely long-cycle Wenckebach as opposed to Mobitz type II AV block. ASSESSMENT AND PLAN: 1. 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 The patient, however, also has sinus bradycardia as well as the patient has first-degree AV block and is off any sinus-saumya or AV-saumya blocking agents. We will watch the patient on telemetry. If the bradycardia persists or there is a clear evidence of Mobitz type II AV block, he may need permanent pacemaker. 2. History of hypertension, on amlodipine 5 mg daily. 3. Questionable coronary artery disease. The patient is on aspirin, Plavix, and amlodipine. 4. Diabetes, on metformin. 5. Suprapubic catheter with recurrent urinary tract infection, on IV antibiotic per Dr. Billings. 6. Dementia. Thank you very much for allowing me to participate in the care of this patient. Please do not hesitate to contact me for any questions regarding my evaluation. Cameron Cox M.D. DR: DEX JOB#: [id number] CC:
[2018-09-29 04:19] VITALS: BP 115/65
[2018-09-29] MEDS: Ampicillin/Sulbactam Sod 3 GM in NS 110 ML IVPB SCH ×2 (05:31→17:00)
[2018-09-29 07:17] LABS: EOSINOPHILS % (AUTO) 7.9 % (0.0-3.0); HEMOGLOBIN 9.7 G/DL (14.2-18.0); LYMPHOCYTES % (AUTO) 22.9 % (20.0-45.0); MEAN CORPUSCULAR VOLUME 72 FL (80-99); MONOCYTES % (AUTO) 7.4 % (1.0-10.0); NEUTROPHILS % (AUTO) 60.8 % (45.0-75.0); PLATELET COUNT 182 K/UL (150-450); RED BLOOD COUNT 4.32 M/UL (4.70-6.10); RED CELL DISTRIBUTION WIDTH 13.7 % (11.6-14.8); WHITE BLOOD COUNT 5.5 K/UL (4.8-10.8)
[2018-09-29 07:26] LABS: ANION GAP 23 mmol/L (5-15); BLOOD UREA NITROGEN 18 mg/dL (7-18); CALCIUM 6.8 MG/DL (8.5-10.1); CARBON DIOXIDE 22 MMOL/L (21-32); CHLORIDE 114 MMOL/L (98-107); CREATININE 2.4 MG/DL (0.55-1.30); POTASSIUM 3.1 MMOL/L (3.5-5.1); SODIUM 159 MMOL/L (136-145)
--- NOTE | 2018-09-29 07:30 | NUR ---
HAND-OFF: Report given to Lou JOINER. Endorsed plan of care.
--- NOTE | 2018-09-29 07:46 | NUR ---
NURSE NOTES: Report received from Vivian Keane RN. Pt is lying comfortably in semi-fowlers with no signs of distress. A+Ox1, no signs of pain/SOB. Respirations are even and unlabored on room air. IV site is patent and running fluids at prescribed rate. Sodium is 159 this morning. Fluids on hold until MD is made aware. Suprapubic catheter in place and patent. Bilateral wrist restraints in place and no skin breakdown noted. Bed is at lowest position, brakes engaged, siderails x3, bed alarm on, and call light within reach. Pt is in stable condition; will continue to monitor.
[2018-09-29 08:00] VITALS: BP 161/66
--- NOTE | 2018-09-29 09:14 | General Progress Note ---
Assessment/Plan Status: stable Assessment/Plan: 1. Recurrnt UTI with hx of multi-drug resistance - cont IV antibiotic and follow up urine and blood cxs. 2. Encephalopathy 2nd to UTI - cont IV Abx and hydration. 3. Hypernatremia - start D5W at 60 cc/hr and SSI. 4. Hypokalemia - KCL 40 meq IV x one dose. 5. leaky suprapubic cath - suprapubic cath changed by Dr page. 6. Dementia - stable. 7. DM II - Cont Metformin 500 mg one po bid and monitor renal function. 8. HTN - Cont amlodipine. 9. CAD - cont home Plavix 10. Depression - cont home Celexa. Subjective Date patient seen: September 29, 2018 Constitutional: Reports: weakness HEENT: Reports: no symptoms Cardiovascular: Reports: no symptoms Respiratory: Reports: no symptoms Gastrointestinal/Abdominal: Reports: no symptoms Genitourinary: Reports: no symptoms Neurologic/Psychiatric: Reports: no symptoms Endocrine: Reports: no symptoms Hematologic/Lymphatic: Reports: no symptoms Allergies: Coded Allergies: No Known Allergies (Unverified , 11/26/14) Subjective This morning his confusion is slightly better. afebrile. no sob or chest pain. Objective Last 24 Hour Vital Signs Date Time Temp Pulse Resp B/P (MAP) Pulse Ox O2 Delivery O2 Flow Rate FiO2 09/29/18 08:00 97.5 57 20 161/66 (97) 96 09/29/18 04:29 50 09/29/18 04:19 97.0 54 20 115/65 (82) 95 09/29/18 00:39 56 09/28/18 23:53 98.2 53 20 143/61 (88) 99 09/28/18 21:00 Room Air 09/28/18 20:00 97.8 60 20 157/65 (95) 99 09/28/18 20:00 57 09/28/18 16:00 67 09/28/18 16:00 98.2 73 23 146/77 (100) 98 09/28/18 12:00 63 09/28/18 12:00 98.2 58 20 116/48 (70) 93 Intake and Output 09/28/18 09/29/18 19:00 07:00 Intake Total 360 ml Output Total 700 ml 1500 ml Balance -340 ml -1500 ml Intake IV Total 360 ml Output Urine Total 700 ml 1500 ml Laboratory Tests 09/29/18 06:10: White Blood Count 5.5, Red Blood Count 4.32L, Hemoglobin 9.7L, Hematocrit 31.0L , Mean Corpuscular Volume 72L, Mean Corpuscular Hemoglobin 22.5L, Mean Corpuscular Hemoglobin Concent 31.4L, Red Cell Distribution Width 13.7, Platelet Count 182, Mean Platelet Volume 5.7L, Neutrophils (%) (Auto) 60.8, Lymphocytes (%) (Auto) 22.9, Monocytes (%) (Auto) 7.4, Eosinophils (%) (Auto) 7.9H, Basophils (%) (Auto) 1.0, Sodium Level 159#H, Potassium Level 3.1L, Chloride Level 114H, Carbon Dioxide Level 22, Anion Gap 23H, Blood Urea Nitrogen 18, Creatinine 2.4#H, Estimat Glomerular Filtration Rate , Glucose Level 91, Calcium Level 6.8#L, Troponin I 0.012, Pro-B-Type Natriuretic Peptide 1104H Height (Feet): 5 Height (Inches): 5.00 Weight (Pounds): 143 General Appearance: alert EENT: normal ENT inspection Neck: non-tender, supple Cardiovascular: regular rhythm, bradycardia Respiratory/Chest: chest wall non-tender, lungs clear, normal breath sounds Abdomen: normal bowel sounds, soft Extremities: normal range of motion, non-tender Edema: no edema noted Arm (L), no edema noted Arm (R), no edema noted Leg (L), no edema noted Leg (R), no edema noted Pedal (L), no edema noted Pedal (R), no edema noted Generalized Neurologic: alert, responsive Skin: warm/dry Lymphatic: normal anterior cervical (L), normal anterior cervical (R), normal posterior cervical (L), normal posterior cervical (R), normal submandibular (L) , normal submandibular (R), normal supraclavicular (L), normal supraclavicular ( R), normal axillary (L), normal axillary (R), normal inguinal (L), normal inguinal (R), normal other Suad Loving MD September 29, 2018 09:14
--- NOTE | 2018-09-29 09:41 | Cardiac Electrophysiology PN ---
Assessment/Plan Assessment/Plan 1. 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 The patient, however, also has sinus bradycardia as well as the patient has first-degree AV block and is off any sinus-saumya or AV-saumya blocking agents. Lowest HR overnight is 42 2. History of hypertension, on amlodipine 5 mg daily. 3. Questionable coronary artery disease. The patient is on aspirin, Plavix, and amlodipine. 4. Diabetes, on metformin. 5. Suprapubic catheter with recurrent urinary tract infection, on IV antibiotic per Dr. Billings. 6. Dementia. Subjective Subjective Feeling better. No CP or SOB. No events Objective Last 24 Hour Vital Signs Date Time Temp Pulse Resp B/P (MAP) Pulse Ox O2 Delivery O2 Flow Rate FiO2 09/29/18 08:00 97.5 57 20 161/66 (97) 96 09/29/18 04:29 50 09/29/18 04:19 97.0 54 20 115/65 (82) 95 09/29/18 00:39 56 09/28/18 23:53 98.2 53 20 143/61 (88) 99 09/28/18 21:00 Room Air 09/28/18 20:00 97.8 60 20 157/65 (95) 99 09/28/18 20:00 57 09/28/18 16:00 67 09/28/18 16:00 98.2 73 23 146/77 (100) 98 09/28/18 12:00 63 09/28/18 12:00 98.2 58 20 116/48 (70) 93 Intake and Output 09/28/18 09/29/18 19:00 07:00 Intake Total 360 ml Output Total 700 ml 1500 ml Balance -340 ml -1500 ml Intake IV Total 360 ml Output Urine Total 700 ml 1500 ml Laboratory Tests Test 09/29/18 06:10 White Blood Count 5.5 K/UL (4.8-10.8) Red Blood Count 4.32 M/UL (4.70-6.10) L Hemoglobin 9.7 G/DL (14.2-18.0) L Hematocrit 31.0 % (42.0-52.0) L Mean Corpuscular Volume 72 FL (80-99) L Mean Corpuscular Hemoglobin 22.5 PG (27.0-31.0) L Mean Corpuscular Hemoglobin Concent 31.4 G/DL (32.0-36.0) L Red Cell Distribution Width 13.7 % (11.6-14.8) Platelet Count 182 K/UL (150-450) Mean Platelet Volume 5.7 FL (6.5-10.1) L Neutrophils (%) (Auto) 60.8 % (45.0-75.0) Lymphocytes (%) (Auto) 22.9 % (20.0-45.0) Monocytes (%) (Auto) 7.4 % (1.0-10.0) Eosinophils (%) (Auto) 7.9 % (0.0-3.0) H Basophils (%) (Auto) 1.0 % (0.0-2.0) Sodium Level 159 MMOL/L (136-145) #H Potassium Level 3.1 MMOL/L (3.5-5.1) L Chloride Level 114 MMOL/L (98-107) H Carbon Dioxide Level 22 MMOL/L (21-32) Anion Gap 23 mmol/L (5-15) H Blood Urea Nitrogen 18 mg/dL (7-18) Creatinine 2.4 MG/DL (0.55-1.30) #H Estimat Glomerular Filtration Rate mL/min (>60) Glucose Level 91 MG/DL (74-106) Calcium Level 6.8 MG/DL (8.5-10.1) #L Troponin I 0.012 ng/mL (0.000-0.056) Pro-B-Type Natriuretic Peptide 1104 pg/mL (0-125) H Microbiology Date/Time Source Procedure Growth Status 09/27/18 13:45 Blood Blood Culture - Preliminary NO GROWTH AFTER 24 HOURS Resulted 09/27/18 13:30 Blood Blood Culture - Preliminary NO GROWTH AFTER 24 HOURS Resulted 09/27/18 18:00 Urine,Suprapubic Urine Culture - Preliminary Gram Negative Bacillus 1 Resulted 09/27/18 13:50 Urine,Clean Catch Urine Culture - Preliminary Gram Negative Bacillus 1 Resulted 09/27/18 16:00 Rectum Received Objective HEAD AND NECK: No JVD or carotid bruit. LUNGS: Clear. CARDIOVASCULAR: Regular S1 and S2. Bradycardic. ABDOMEN: Soft. Status post suprapubic catheter. EXTREMITIES: No pitting edema. Cameron Cox MD September 29, 2018 09:41
[2018-09-29] MEDS: Aspirin EC 81mg tab ORAL SCH (09:47)
[2018-09-29] MEDS: Oxybutynin 5mg tab ORAL SCH ×2 (09:48→17:00)
[2018-09-29] MEDS ORDERED: LORazepam Inj 2mg/ml 1ml IV PRN (10:45)
--- NOTE | 2018-09-29 11:06 | NUR ---
NURSE NOTES: Per Dr. Loving, it is okay to do first accucheck in a few hours after the D5W has had time to infuse. Will not administer Novolog for 1130 and check accucheck at 1630.
[2018-09-29] MEDS: NovoLOG Insulin Flexpen SUBQ SCH ×3 (11:08→21:11)
[2018-09-29 12:00] VITALS: BP 138/68
--- NOTE | 2018-09-29 12:30 | NUR ---
NURSE NOTES: Made Dr. Billings aware of positive blood culture. He said he took the pt off vanco due to rising creatinine, but to start IV Zyvox 600 mg IV q12hr until culture is identified.
--- NOTE | 2018-09-29 13:00 | Urology Progress Note ---
Assessment/Plan Status: stable Assessment/Plan: 1. 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 2. Possible neurogenic bladder. 3. BPH history. 4. Urethral stricture. 5. Hematuria. 6. Pyuria, probable UTI and colonization of the urine. 7. Proteinuria. 8. Chronic kidney disease. 9. History of small nephrolithiasis. 10. Renal cyst. 11. Renal atrophy. cont with abx as ordered f/u on cx's new 24f SP tube placed 09/28 hand irrigated and do PRN monitor clinically consider renal imaging study Subjective Allergies: Coded Allergies: No Known Allergies (Unverified , 11/26/14) Subjective all noted Objective Last 24 Hour Vital Signs Date Time Temp Pulse Resp B/P (MAP) Pulse Ox O2 Delivery O2 Flow Rate FiO2 09/29/18 12:00 97.3 60 20 138/68 (91) 95 09/29/18 09:50 62 161/66 09/29/18 09:00 Room Air 09/29/18 08:00 97.5 57 20 161/66 (97) 96 09/29/18 08:00 50 09/29/18 04:29 50 09/29/18 04:19 97.0 54 20 115/65 (82) 95 09/29/18 00:39 56 09/28/18 23:53 98.2 53 20 143/61 (88) 99 09/28/18 21:00 Room Air 09/28/18 20:00 97.8 60 20 157/65 (95) 99 09/28/18 20:00 57 09/28/18 16:00 67 09/28/18 16:00 98.2 73 23 146/77 (100) 98 Intake and Output 09/28/18 09/29/18 19:00 07:00 Intake Total 360 ml Output Total 700 ml 1500 ml Balance -340 ml -1500 ml Intake IV Total 360 ml Output Urine Total 700 ml 1500 ml Microbiology Date/Time Source Procedure Growth Status 09/27/18 13:45 Blood Blood Culture - Preliminary Resulted 09/27/18 18:00 Urine,Suprapubic Urine Culture - Preliminary Gram Negative Bacillus 1 Resulted 09/27/18 16:00 Rectum Received Current Medications Medications (Trade) Dose Ordered Sig/Charlene Route PRN Reason Start Time Stop Time Status Last Admin Dose Admin Amlodipine Besylate (Norvasc) 5 mg DAILY ORAL 09/28/18 09:00 10/28/18 08:59 09/29/18 09:50 Ampicillin Sodium/ Sulbactam Sodium 3 gm/Sodium Chloride 110 ml @ 220 mls/hr Q12H IVPB 09/29/18 18:00 10/06/18 17:59 Aspirin (Ecotrin) 81 mg DAILY ORAL 09/28/18 09:00 10/28/18 08:59 09/29/18 09:47 Citalopram Hydrobromide (celeXA) 40 mg BEDTIME ORAL 09/27/18 21:00 10/27/18 20:59 Clopidogrel Bisulfate (Plavix) 75 mg DAILY ORAL 09/28/18 09:00 10/28/18 08:59 09/29/18 09:47 Dextrose 500 ml @ 60 mls/hr Q8H20M ONCE IV 09/29/18 09:15 09/29/18 17:34 09/29/18 09:47 Dextrose (Dextrose 50%) 25 ml Q30M PRN IV Hypoglycemia 09/29/18 10:00 10/29/18 09:59 Dextrose (Dextrose 50%) 50 ml Q30M PRN IV Hypoglycemia 09/29/18 10:00 10/29/18 09:59 Insulin Aspart (NovoLOG) BEFORE MEALS AND HS SUBQ 09/29/18 11:30 10/29/18 11:29 Linezolid 300 ml @ 300 mls/hr Q12HR IVPB 09/29/18 21:00 10/06/18 20:59 Lorazepam (Ativan 2mg/ml 1ml) 0.5 mg Q8H PRN IV For Anxiety 09/29/18 10:45 10/06/18 10:44 09/29/18 11:01 Olanzapine (ZyPREXA) 2.5 mg BEDTIME ORAL 09/27/18 21:00 10/28/18 08:59 Oxybutynin Chloride (Ditropan) 2.5 mg BID ORAL 09/27/18 18:00 10/27/18 17:59 09/29/18 09:48 Potassium Chloride 100 ml @ 100 mls/hr Q1H IVPB 09/29/18 09:15 09/29/18 13:14 09/29/18 12:27 Laboratory Tests 09/29/18 06:10: White Blood Count 5.5, Red Blood Count 4.32L, Hemoglobin 9.7L, Hematocrit 31.0L , Mean Corpuscular Volume 72L, Mean Corpuscular Hemoglobin 22.5L, Mean Corpuscular Hemoglobin Concent 31.4L, Red Cell Distribution Width 13.7, Platelet Count 182, Mean Platelet Volume 5.7L, Neutrophils (%) (Auto) 60.8, Lymphocytes (%) (Auto) 22.9, Monocytes (%) (Auto) 7.4, Eosinophils (%) (Auto) 7.9H, Basophils (%) (Auto) 1.0, Sodium Level 159#H, Potassium Level 3.1L, Chloride Level 114H, Carbon Dioxide Level 22, Anion Gap 23H, Blood Urea Nitrogen 18, Creatinine 2.4#H, Estimat Glomerular Filtration Rate , Glucose Level 91, Calcium Level 6.8#L, Troponin I 0.012, Pro-B-Type Natriuretic Peptide 1104H Height (Feet): 5 Height (Inches): 5.00 Weight (Pounds): 143 Objective exam stable Camilo Arevalo MD September 29, 2018 13:00
[2018-09-29 13:41] LABS: ANION GAP 11 mmol/L (5-15); BLOOD UREA NITROGEN 21 mg/dL (7-18); CALCIUM 8.9 MG/DL (8.5-10.1); CARBON DIOXIDE 25 MMOL/L (21-32); CHLORIDE 107 MMOL/L (98-107); CREATININE 1.2 MG/DL (0.55-1.30); POTASSIUM 4.3 MMOL/L (3.5-5.1); SODIUM 143 MMOL/L (136-145)
--- NOTE | 2018-09-29 13:53 | NUR ---
NURSE NOTES: Left message with Dr. Loving regarding results of CMP; awaiting response.
[2018-09-29 16:00] VITALS: BP 136/62
[2018-09-29] MEDS: Gentamicin 0.3% Opth Soln 5ml BOTH EYES SCH (17:00)
--- NOTE | 2018-09-29 18:58 | Infectious Diseases Prog Note ---
Assessment/Plan Problems: (1) Bacteremia Assessment & Plan: with gram positive cocci in clusters , suspect staphylococcus spp, will switch vancomycin to zyvox empirically pending final culture (2) Catheter-associated urinary tract infection Assessment & Plan: with gram negative rods , continue unasyn empirically pending urine culture, was seen by urology for urine leak, and had his suprapubic catheter changed (3) Encephalopathy acute Assessment & Plan: suspect due to the above , continue hydration and wide spectrum antibiotics pending cultures (4) Suprapubic catheter dysfunction Assessment & Plan: leaking urine around it, had urology eval and his catheter was changed (5) ARF (acute renal failure) Assessment & Plan: due to the above, continue hydration and renally dosed meds , with worsening creatinine level, carrie switch vancomycin and zyvox pending final blood culture Subjective ROS Limited/Unobtainable: Yes Allergies: Coded Allergies: No Known Allergies (Unverified , 11/26/14) Subjective he was awake and alert, responds to verbal commands, but still confused , in restrains , afebrile, still has urine leaking around the suprapubic catheter Objective Vital Signs Last 24 Hour Vital Signs Date Time Temp Pulse Resp B/P (MAP) Pulse Ox O2 Delivery O2 Flow Rate FiO2 09/29/18 16:00 97.8 54 20 136/62 (86) 95 09/29/18 16:00 55 09/29/18 12:00 97.3 60 20 138/68 (91) 95 09/29/18 12:00 56 09/29/18 09:50 62 161/66 09/29/18 09:00 Room Air 09/29/18 08:00 97.5 57 20 161/66 (97) 96 09/29/18 08:00 50 09/29/18 04:29 50 09/29/18 04:19 97.0 54 20 115/65 (82) 95 09/29/18 00:39 56 09/28/18 23:53 98.2 53 20 143/61 (88) 99 09/28/18 21:00 Room Air 09/28/18 20:00 97.8 60 20 157/65 (95) 99 09/28/18 20:00 57 Height (Feet): 5 Height (Inches): 5.00 Weight (Pounds): 143 General Appearance: WD/WN, no acute distress HEENT: normocephalic, atraumatic, anicteric, mucous membranes moist, PERRL Respiratory/Chest: chest wall non-tender, lungs clear, normal breath sounds, no respiratory distress, no accessory muscle use Cardiovascular: normal peripheral pulses, normal rate, regular rhythm, no gallop/murmur, no JVD Abdomen: normal bowel sounds, soft, non tender, no organomegaly, non distended , no mass, no scars, guarding Extremities: no cyanosis, no clubbing Skin: no rash, no lesions, no ulcers 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, alert, responsive Lymphatic: no neck adenopathy, no groin adenopathy Musculoskeletal: normal muscle bulk Microbiology Date/Time Source Procedure Growth Status 09/27/18 13:45 Blood Blood Culture - Preliminary Resulted 09/27/18 13:30 Blood Blood Culture - Preliminary NO GROWTH AFTER 24 HOURS Resulted 09/27/18 18:00 Urine,Suprapubic Urine Culture - Preliminary Gram Negative Bacillus 1 Resulted 09/27/18 13:50 Urine,Clean Catch Urine Culture - Preliminary Gram Negative Bacillus 1 Resulted 09/27/18 16:00 Rectum Received Laboratory Tests Test 09/29/18 06:10 09/29/18 12:50 White Blood Count 5.5 K/UL (4.8-10.8) Red Blood Count 4.32 M/UL (4.70-6.10) L Hemoglobin 9.7 G/DL (14.2-18.0) L Hematocrit 31.0 % (42.0-52.0) L Mean Corpuscular Volume 72 FL (80-99) L Mean Corpuscular Hemoglobin 22.5 PG (27.0-31.0) L Mean Corpuscular Hemoglobin Concent 31.4 G/DL (32.0-36.0) L Red Cell Distribution Width 13.7 % (11.6-14.8) Platelet Count 182 K/UL (150-450) Mean Platelet Volume 5.7 FL (6.5-10.1) L Neutrophils (%) (Auto) 60.8 % (45.0-75.0) Lymphocytes (%) (Auto) 22.9 % (20.0-45.0) Monocytes (%) (Auto) 7.4 % (1.0-10.0) Eosinophils (%) (Auto) 7.9 % (0.0-3.0) H Basophils (%) (Auto) 1.0 % (0.0-2.0) Sodium Level 159 MMOL/L (136-145) #H 143 MMOL/L (136-145) # Potassium Level 3.1 MMOL/L (3.5-5.1) L 4.3 MMOL/L (3.5-5.1) Chloride Level 114 MMOL/L (98-107) H 107 MMOL/L (98-107) Carbon Dioxide Level 22 MMOL/L (21-32) 25 MMOL/L (21-32) Anion Gap 23 mmol/L (5-15) H 11 mmol/L (5-15) Blood Urea Nitrogen 18 mg/dL (7-18) 21 mg/dL (7-18) H Creatinine 2.4 MG/DL (0.55-1.30) #H 1.2 MG/DL (0.55-1.30) Estimat Glomerular Filtration Rate mL/min (>60) mL/min (>60) Glucose Level 91 MG/DL (74-106) 107 MG/DL (74-106) H Calcium Level 6.8 MG/DL (8.5-10.1) #L 8.9 MG/DL (8.5-10.1) # Troponin I 0.012 ng/mL (0.000-0.056) Pro-B-Type Natriuretic Peptide 1104 pg/mL (0-125) H Current Medications Medications (Trade) Dose Ordered Sig/Charlene Route PRN Reason Start Time Stop Time Status Last Admin Dose Admin Amlodipine Besylate (Norvasc) 5 mg DAILY ORAL 09/28/18 09:00 10/28/18 08:59 09/29/18 09:50 Ampicillin Sodium/ Sulbactam Sodium 3 gm/Sodium Chloride 110 ml @ 220 mls/hr Q12H IVPB 09/29/18 18:00 10/06/18 17:59 09/29/18 17:00 Aspirin (Ecotrin) 81 mg DAILY ORAL 09/28/18 09:00 10/28/18 08:59 09/29/18 09:47 Citalopram Hydrobromide (celeXA) 40 mg BEDTIME ORAL 09/27/18 21:00 10/27/18 20:59 Clopidogrel Bisulfate (Plavix) 75 mg DAILY ORAL 09/28/18 09:00 10/28/18 08:59 09/29/18 09:47 Dextrose (Dextrose 50%) 25 ml Q30M PRN IV Hypoglycemia 09/29/18 10:00 10/29/18 09:59 Dextrose (Dextrose 50%) 50 ml Q30M PRN IV Hypoglycemia 09/29/18 10:00 10/29/18 09:59 [facility]amicin S[facility]ate [facility] 1 drop BID BOTH EYES 09/29/18 18:00 10/06/18 17:59 09/29/18 17:00 Insulin Aspart (NovoLOG) BEFORE MEALS AND HS SUBQ 09/29/18 11:30 10/29/18 11:29 09/29/18 16:58 Linezolid 300 ml @ 300 mls/hr Q12HR IVPB 09/29/18 21:00 10/06/18 20:59 Lorazepam (Ativan 2mg/ml 1ml) 0.5 mg Q8H PRN IV For Anxiety 09/29/18 10:45 10/06/18 10:44 09/29/18 11:01 Olanzapine (ZyPREXA) 2.5 mg BEDTIME ORAL 09/27/18 21:00 10/28/18 08:59 Oxybutynin Chloride (Ditropan) 2.5 mg BID ORAL 09/27/18 18:00 10/27/18 17:59 09/29/18 17:00 Sodium Chloride 1,000 ml @ 50 mls/hr Q20H IV 09/29/18 14:15 10/29/18 14:14 09/29/18 14:18 Frida Billings M.D. September 29, 2018 18:58
--- NOTE | 2018-09-29 19:21 | NUR ---
HAND-OFF: Report given to RHYS Atwood. Pt is in stable condition; plan of care endorsed.
--- NOTE | 2018-09-29 19:28 | NUR ---
NURSE NOTES: Report received from RHYS Blake. Observed pt lying on the bed, calm and comfortable. A/O x1, no signs of pain noted. On room air with no signs of SOB. Suprapubic cath intact and patent. IV on L FA 20G, running NS @50ml/hr. Bilateral wrist restraints in place and no skin breakdown noted. Bed in the lowest position. Siderails up x3. Call light within reach. Pt is in stable condition. will continue to monitor.
[2018-09-29 20:00] VITALS: BP 150/66
[2018-09-29] MEDS: OLANZapine 2.5mg tab ORAL SCH (21:04)
[2018-09-29] MEDS: Citalopram Hydrobromide 10mg Tab ORAL SCH (21:04)
[2018-09-30] VITALS: BP 149/65
--- NOTE | 2018-09-30 00:15 | NUR ---
NURSE NOTES: Observed pt sleeping on the bed, calm and comfortable. Sinus miguel with HR of 46 noted and episodes of 1st AVB and 2nd AVB type 1. Pt asymptomatic, no signs of distress noted. Bed bath given. Bowel movement x1 noted, dark brown, soft stool. Reposition done. Pt is confused and impulsive noted. Bed in the lowest position. Side rails up x3. Will continue to monitor.
[2018-09-30 04:00] VITALS: BP 156/63
--- NOTE | 2018-09-30 04:00 | NUR ---
NURSE NOTES: Noted SB on director of cardiac cath lab lowest at 40. Pt is asymptomatic. VS WNL. Pt is responsive, sleeping, calm and comfortable. No distress noted. Will continue to monitor.
[2018-09-30] MEDS: Ampicillin/Sulbactam Sod 3 GM in NS 110 ML IVPB SCH (05:52)
[2018-09-30] MEDS: NovoLOG Insulin Flexpen SUBQ SCH ×4 (05:53→22:02)
[2018-09-30 06:19] LABS: EOSINOPHILS % (AUTO) 7.1 % (0.0-3.0); HEMATOCRIT 30.4 % (42.0-52.0); HEMOGLOBIN 9.6 G/DL (14.2-18.0); LYMPHOCYTES % (AUTO) 28.3 % (20.0-45.0); MEAN CORPUSCULAR VOLUME 72 FL (80-99); MONOCYTES % (AUTO) 8.2 % (1.0-10.0); NEUTROPHILS % (AUTO) 55.3 % (45.0-75.0); PLATELET COUNT 169 K/UL (150-450); RED BLOOD COUNT 4.23 M/UL (4.70-6.10); RED CELL DISTRIBUTION WIDTH 13.9 % (11.6-14.8); WHITE BLOOD COUNT 5.2 K/UL (4.8-10.8)
[2018-09-30 06:44] LABS: ANION GAP 8 mmol/L (5-15); BLOOD UREA NITROGEN 20 mg/dL (7-18); CALCIUM 8.5 MG/DL (8.5-10.1); CARBON DIOXIDE 25 MMOL/L (21-32); CHLORIDE 109 MMOL/L (98-107); CREATININE 1.4 MG/DL (0.55-1.30); SODIUM 142 MMOL/L (136-145)
--- NOTE | 2018-09-30 07:05 | NUR ---
HAND-OFF: Report given to RHYS Blake. No distress noted at this time.
--- NOTE | 2018-09-30 07:24 | NUR ---
NURSE NOTES: Report received from RHYS Atwood. Pt is lying comfortably in semi-fowlers with no signs of distress. A+Ox1, no signs of pain/SOB. Respirations are even and unlabored on room air. IV site is patent and running fluids at prescribed rate. Suprapubic catheter in place and patent. Bilateral wrist restraints in place and no skin breakdown noted. Bed is at lowest position, brakes engaged, siderails x3, bed alarm on, and call light within reach. Pt is in stable condition; will continue to monitor.
[2018-09-30 08:00] VITALS: BP 158/65
[2018-09-30] MEDS: Gentamicin 0.3% Opth Soln 5ml BOTH EYES SCH ×2 (08:45→17:57)
[2018-09-30] MEDS: Aspirin EC 81mg tab ORAL SCH (08:45)
[2018-09-30] MEDS: Oxybutynin 5mg tab ORAL SCH ×2 (08:46→17:57)
--- NOTE | 2018-09-30 08:57 | Urology Progress Note ---
Assessment/Plan Status: stable Assessment/Plan: 1. 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 2. Possible neurogenic bladder. 3. BPH history. 4. Urethral stricture. 5. Hematuria. 6. Pyuria, probable UTI and colonization of the urine. 7. Proteinuria. 8. Chronic kidney disease. 9. History of small nephrolithiasis. 10. Renal cyst. 11. Renal atrophy. cont with abx as ordered f/u on cx's new 24f SP tube placed 09/28 hand irrigated and do PRN monitor clinically consider renal imaging study Subjective Allergies: Coded Allergies: No Known Allergies (Unverified , 11/26/14) Subjective all noted Objective Last 24 Hour Vital Signs Date Time Temp Pulse Resp B/P (MAP) Pulse Ox O2 Delivery O2 Flow Rate FiO2 09/30/18 08:46 55 158/65 09/30/18 06:54 Room Air 09/30/18 04:00 98.2 79 17 156/63 (94) 94 09/30/18 04:00 48 09/30/18 00:00 98.7 58 18 149/65 (93) 94 09/30/18 00:00 46 09/29/18 21:00 Room Air 09/29/18 20:00 56 09/29/18 20:00 98.9 56 17 150/66 (94) 93 09/29/18 16:00 97.8 54 20 136/62 (86) 95 09/29/18 16:00 55 09/29/18 12:00 97.3 60 20 138/68 (91) 95 09/29/18 12:00 56 09/29/18 09:50 62 161/66 09/29/18 09:00 Room Air Intake and Output 09/29/18 09/30/18 19:00 07:00 Intake Total 440 ml 970 ml Output Total 700 ml 1200 ml Balance -260 ml -230 ml Intake Oral 390 ml 120 ml IV Total 50 ml 850 ml Output Urine Total 700 ml 1200 ml # Bowel Movements 1 Microbiology Date/Time Source Procedure Growth Status 09/27/18 13:45 Blood Blood Culture - Preliminary Staphylococcus Sp Coag Neg Resulted 09/27/18 18:00 Urine,Suprapubic Urine Culture - Preliminary Escherichia Coli Gram Negative Bacillus 2 Resulted 09/27/18 16:00 Rectum - Final NO CARBAPENEM-RESISTANT ENTEROBACTERI... Complete Current Medications Medications (Trade) Dose Ordered Sig/Charlene Route PRN Reason Start Time Stop Time Status Last Admin Dose Admin Amlodipine Besylate (Norvasc) 5 mg DAILY ORAL 09/28/18 09:00 10/28/18 08:59 09/30/18 08:46 Ampicillin Sodium/ Sulbactam Sodium 3 gm/Sodium Chloride 110 ml @ 220 mls/hr Q12H IVPB 09/29/18 18:00 10/06/18 17:59 09/30/18 05:52 Aspirin (Ecotrin) 81 mg DAILY ORAL 09/28/18 09:00 10/28/18 08:59 09/30/18 08:45 Citalopram Hydrobromide (celeXA) 40 mg BEDTIME ORAL 09/27/18 21:00 10/27/18 20:59 09/29/18 21:04 Clopidogrel Bisulfate (Plavix) 75 mg DAILY ORAL 09/28/18 09:00 10/28/18 08:59 09/30/18 08:45 Dextrose (Dextrose 50%) 25 ml Q30M PRN IV Hypoglycemia 09/29/18 10:00 10/29/18 09:59 Dextrose (Dextrose 50%) 50 ml Q30M PRN IV Hypoglycemia 09/29/18 10:00 10/29/18 09:59 [facility] 1 drop BID BOTH EYES 09/29/18 18:00 10/06/18 17:59 09/30/18 08:45 Insulin Aspart (NovoLOG) BEFORE MEALS AND HS SUBQ 09/29/18 11:30 10/29/18 11:29 09/30/18 05:53 Linezolid 300 ml @ 300 mls/hr Q12HR IVPB 09/29/18 21:00 10/06/18 20:59 09/30/18 08:45 Lorazepam (Ativan 2mg/ml 1ml) 0.5 mg Q8H PRN IV For Anxiety 09/29/18 10:45 10/06/18 10:44 09/29/18 11:01 Olanzapine (ZyPREXA) 2.5 mg BEDTIME ORAL 09/27/18 21:00 10/28/18 08:59 09/29/18 21:04 Oxybutynin Chloride (Ditropan) 2.5 mg BID ORAL 09/27/18 18:00 10/27/18 17:59 09/30/18 08:46 Sodium Chloride 1,000 ml @ 50 mls/hr Q20H IV 09/29/18 14:15 10/29/18 14:14 09/29/18 14:18 Laboratory Tests 09/29/18 12:50: Sodium Level 143#, Potassium Level 4.3, Chloride Level 107, Carbon Dioxide Level 25, Anion Gap 11, Blood Urea Nitrogen 21H, Creatinine 1.2, Estimat Glomerular Filtration Rate , Glucose Level 107H, Calcium Level 8.9# 09/30/18 05:40: Sodium Level 142, Potassium Level 4.0, Chloride Level 109H, Carbon Dioxide Level 25, Anion Gap 8, Blood Urea Nitrogen 20H, Creatinine 1.4H, Estimat Glomerular Filtration Rate , Glucose Level 118H, Calcium Level 8.5, White Blood Count 5.2, Red Blood Count 4.23L, Hemoglobin 9.6L, Hematocrit 30.4L, Mean Corpuscular Volume 72L, Mean Corpuscular Hemoglobin 22.6L, Mean Corpuscular Hemoglobin Concent 31.4L, Red Cell Distribution Width 13.9, Platelet Count 169, Mean Platelet Volume 5.4L, Neutrophils (%) (Auto) 55.3, Lymphocytes (%) (Auto) 28.3, Monocytes (%) (Auto) 8.2, Eosinophils (%) (Auto) 7.1H, Basophils (%) (Auto ) 1.0 Height (Feet): 5 Height (Inches): 5.00 Weight (Pounds): 143 Objective exam stable Camilo Arevalo MD September 30, 2018 08:57
--- NOTE | 2018-09-30 09:02 | General Progress Note ---
Assessment/Plan Status: stable Assessment/Plan: 1. 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 2. Encephalopathy 2nd to UTI - cont IV Abx and hydration. 3. Hypernatremia -resolved. 4. Hypokalemia - resolved. 5. leaky suprapubic cath - suprapubic cath changed by Dr page. 6. Dementia - stable. 7. DM II - on SSI and off Metformin 500 mg one po bid and monitor renal function. 8. HTN - Cont amlodipine. 9. CAD - cont home Plavix 10. Depression - cont home Celexa. 11. 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 Subjective Date patient seen: September 30, 2018 Time patient seen: 08:35 Constitutional: Reports: weakness HEENT: Reports: no symptoms Cardiovascular: Reports: no symptoms Respiratory: Reports: no symptoms Gastrointestinal/Abdominal: Reports: no symptoms Genitourinary: Reports: no symptoms Neurologic/Psychiatric: Reports: no symptoms Endocrine: Reports: no symptoms Hematologic/Lymphatic: Reports: no symptoms Allergies: Coded Allergies: No Known Allergies (Unverified , 11/26/14) Subjective This morning he is doing better and awake. afebrile. no sob or chest pain. His heart rate improved to low 50's. Objective Last 24 Hour Vital Signs Date Time Temp Pulse Resp B/P (MAP) Pulse Ox O2 Delivery O2 Flow Rate FiO2 09/30/18 08:46 55 158/65 09/30/18 06:54 Room Air 09/30/18 04:00 98.2 79 17 156/63 (94) 94 09/30/18 04:00 48 09/30/18 00:00 98.7 58 18 149/65 (93) 94 09/30/18 00:00 46 09/29/18 21:00 Room Air 09/29/18 20:00 56 09/29/18 20:00 98.9 56 17 150/66 (94) 93 09/29/18 16:00 97.8 54 20 136/62 (86) 95 09/29/18 16:00 55 09/29/18 12:00 97.3 60 20 138/68 (91) 95 09/29/18 12:00 56 09/29/18 09:50 62 161/66 09/29/18 09:00 Room Air Intake and Output 09/29/18 09/30/18 19:00 07:00 Intake Total 440 ml 970 ml Output Total 700 ml 1200 ml Balance -260 ml -230 ml Intake Oral 390 ml 120 ml IV Total 50 ml 850 ml Output Urine Total 700 ml 1200 ml # Bowel Movements 1 Laboratory Tests 09/29/18 12:50: Sodium Level 143#, Potassium Level 4.3, Chloride Level 107, Carbon Dioxide Level 25, Anion Gap 11, Blood Urea Nitrogen 21H, Creatinine 1.2, Estimat Glomerular Filtration Rate , Glucose Level 107H, Calcium Level 8.9# 09/30/18 05:40: Sodium Level 142, Potassium Level 4.0, Chloride Level 109H, Carbon Dioxide Level 25, Anion Gap 8, Blood Urea Nitrogen 20H, Creatinine 1.4H, Estimat Glomerular Filtration Rate , Glucose Level 118H, Calcium Level 8.5, White Blood Count 5.2, Red Blood Count 4.23L, Hemoglobin 9.6L, Hematocrit 30.4L, Mean Corpuscular Volume 72L, Mean Corpuscular Hemoglobin 22.6L, Mean Corpuscular Hemoglobin Concent 31.4L, Red Cell Distribution Width 13.9, Platelet Count 169, Mean Platelet Volume 5.4L, Neutrophils (%) (Auto) 55.3, Lymphocytes (%) (Auto) 28.3, Monocytes (%) (Auto) 8.2, Eosinophils (%) (Auto) 7.1H, Basophils (%) (Auto ) 1.0 Height (Feet): 5 Height (Inches): 5.00 Weight (Pounds): 143 General Appearance: no apparent distress, alert Neck: non-tender, supple Cardiovascular: regular rhythm, bradycardia Respiratory/Chest: chest wall non-tender, lungs clear, normal breath sounds Abdomen: normal bowel sounds, non tender, soft Extremities: normal range of motion, non-tender Edema: no edema noted Arm (L), no edema noted Arm (R), no edema noted Leg (L), no edema noted Leg (R), no edema noted Pedal (L), no edema noted Pedal (R), no edema noted Generalized Neurologic: alert, responsive Skin: warm/dry Lymphatic: normal anterior cervical (L), normal anterior cervical (R), normal posterior cervical (L), normal posterior cervical (R), normal submandibular (L) , normal submandibular (R), normal supraclavicular (L), normal supraclavicular ( R), normal axillary (L), normal axillary (R), normal inguinal (L), normal inguinal (R), normal other Suad Loving MD September 30, 2018 09:02
--- NOTE | 2018-09-30 09:10 | NUR ---
CASE MANAGEMENT:REVIEW 09/30/18 SI: ENCEPHALOPATHY D/T RECURRENT UTI LEAKING SUPRAPUBIC CATH. 2ND DEGREE AVB 98.0 55 20 158/65 95% ON RA H/H-9.6/30.4 BUN+20 CR+1.4 IS: IV LINEZOLID Q12 IV AMPICILLIN Q12 IVF@50/HR NORVASC PO QD ASA PO QD PLAVIX PO QD CELEXA PO QHS ZYPREXA PO QHS : TELEMETRY STATUS DCP: FROM [facility] CARE PLAN: PT EVAL MIGHT NEED PACEMAKER
--- NOTE | 2018-09-30 09:51 | NUR ---
NURSE NOTES: Made Dr. Loving aware of pt having heart rate in the 30s with second and first degree heart block. Dr. Loving spoke with Dr. Cox and discussed possible pacemaker plcmnt. Pt is to be NPO in preparation.
--- NOTE | 2018-09-30 10:46 | NUR ---
NURSE NOTES: Pt's heart rate dropped as low at [address] Cox aware and will call pt's son for consent for pacemaker.
--- NOTE | 2018-09-30 10:57 | Cardiac Electrophysiology PN ---
Assessment/Plan Assessment/Plan 1. 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 At base line also has sinus bradycardia with very long first-degree AV block and is off any sinus-saumya or AV-saumya blocking agents. Lowest HR this am while awake is 26 2. History of hypertension, on amlodipine 5 mg daily. 3. Questionable coronary artery disease. The patient is on aspirin, Plavix, and amlodipine. 4. Diabetes, on metformin. 5. Suprapubic catheter with recurrent urinary tract infection, on IV antibiotic per Dr. Billings. 6. Dementia. DW Son Mr Nida Arnold at [phone] who agrees with pacer implant, however he wants to DW his sister before signing the consent KOBE RN and Dr Loving Subjective Subjective Heart rate repeatedly dropping to 20s while awake! Telestrips with HR 26 and 27s in chart Objective Last 24 Hour Vital Signs Date Time Temp Pulse Resp B/P (MAP) Pulse Ox O2 Delivery O2 Flow Rate FiO2 09/30/18 08:46 55 158/65 09/30/18 08:00 98.0 55 20 158/65 (96) 95 09/30/18 06:54 Room Air 09/30/18 04:00 98.2 79 17 156/63 (94) 94 09/30/18 04:00 48 09/30/18 00:00 98.7 58 18 149/65 (93) 94 09/30/18 00:00 46 09/29/18 21:00 Room Air 09/29/18 20:00 56 09/29/18 20:00 98.9 56 17 150/66 (94) 93 09/29/18 16:00 97.8 54 20 136/62 (86) 95 09/29/18 16:00 55 09/29/18 12:00 97.3 60 20 138/68 (91) 95 09/29/18 12:00 56 Intake and Output 09/29/18 09/30/18 19:00 07:00 Intake Total 440 ml 970 ml Output Total 700 ml 1200 ml Balance -260 ml -230 ml Intake Oral 390 ml 120 ml IV Total 50 ml 850 ml Output Urine Total 700 ml 1200 ml # Bowel Movements 1 Laboratory Tests Test 09/29/18 12:50 09/30/18 05:40 Sodium Level 143 MMOL/L (136-145) # 142 MMOL/L (136-145) Potassium Level 4.3 MMOL/L (3.5-5.1) 4.0 MMOL/L (3.5-5.1) Chloride Level 107 MMOL/L (98-107) 109 MMOL/L (98-107) H Carbon Dioxide Level 25 MMOL/L (21-32) 25 MMOL/L (21-32) Anion Gap 11 mmol/L (5-15) 8 mmol/L (5-15) Blood Urea Nitrogen 21 mg/dL (7-18) H 20 mg/dL (7-18) H Creatinine 1.2 MG/DL (0.55-1.30) 1.4 MG/DL (0.55-1.30) H Estimat Glomerular Filtration Rate mL/min (>60) mL/min (>60) Glucose Level 107 MG/DL (74-106) H 118 MG/DL (74-106) H Calcium Level 8.9 MG/DL (8.5-10.1) # 8.5 MG/DL (8.5-10.1) White Blood Count 5.2 K/UL (4.8-10.8) Red Blood Count 4.23 M/UL (4.70-6.10) L Hemoglobin 9.6 G/DL (14.2-18.0) L Hematocrit 30.4 % (42.0-52.0) L Mean Corpuscular Volume 72 FL (80-99) L Mean Corpuscular Hemoglobin 22.6 PG (27.0-31.0) L Mean Corpuscular Hemoglobin Concent 31.4 G/DL (32.0-36.0) L Red Cell Distribution Width 13.9 % (11.6-14.8) Platelet Count 169 K/UL (150-450) Mean Platelet Volume 5.4 FL (6.5-10.1) L Neutrophils (%) (Auto) 55.3 % (45.0-75.0) Lymphocytes (%) (Auto) 28.3 % (20.0-45.0) Monocytes (%) (Auto) 8.2 % (1.0-10.0) Eosinophils (%) (Auto) 7.1 % (0.0-3.0) H Basophils (%) (Auto) 1.0 % (0.0-2.0) Microbiology Date/Time Source Procedure Growth Status 09/27/18 13:45 Blood Blood Culture - Preliminary Staphylococcus Sp Coag Neg Resulted 09/27/18 13:30 Blood Blood Culture - Preliminary NO GROWTH AFTER 48 HOURS Resulted 09/27/18 18:00 Urine,Suprapubic Urine Culture - Preliminary Escherichia Coli Gram Negative Bacillus 2 Resulted 09/27/18 13:50 Urine,Clean Catch Urine Culture - Final Escherichia Coli Complete 09/27/18 16:00 Rectum - Final NO CARBAPENEM-RESISTANT ENTEROBACTERI... Complete 09/27/18 16:00 Rectum VRE Culture - Final Enterococcus Faecalis - Vre Complete Objective HEAD AND NECK: No JVD or carotid bruit. LUNGS: Clear. CARDIOVASCULAR: Dinh S1 and S2. Bradycardic. ABDOMEN: Soft. Status post suprapubic catheter. EXTREMITIES: No pitting edema. Cameron Cox MD September 30, 2018 10:57
--- NOTE | 2018-09-30 11:26 | NUR ---
NURSE NOTES: Dr. Cox spoke with patient's son and explained risks and benefits of pacemaker implantation. Witnessed consent from son with one other nurse no telephone. Procedure is to be done on wednesday.
[2018-09-30 12:00] VITALS: BP 133/60
--- NOTE | 2018-09-30 14:43 | NUR ---
RD ASSESSMENT & RECOMMENDATIONS SEE CARE ACTIVITY FOR COMPLETE ASSESSMENT DAILY ESTIMATED NEEDS: Needs based on Diabetes, cardiac, 65kg 25-30 kcals/kg 3202-3159 total kcals 1-1.5 g protein/kg 65-97 g total protein 25-30 mL/kg 0136-8698 total fluid mLs NUTRITION DIAGNOSIS: Possible swallowing/chewing difficulty R/T dementia, dysphagia? as evidenced by pt on mech soft finely chopped texture diet. CURRENT DIET:CCHO med/ mech soft finely chopped PO DIET RECOMMENDATIONS: LOW NA, CCHO MED/ texture as tolerated or per DATA CONTROL CLERK SUPERVISOR ADDITIONAL RECOMMENDATIONS: * Calibrated bedscale wt for accurate CBW * Consider DATA CONTROL CLERK SUPERVISOR eval for appropriate texture * Monitor PO intake and tolerance * Monitor lytes, replete as needed
[2018-09-30 16:00] VITALS: BP 136/61
[2018-09-30] MEDS: Cefepime HCl 1 GM in D5W 55 ML IVPB SCH (16:19)
--- NOTE | 2018-09-30 16:44 | Anethesia Preoperative Eval ---
Anesthesia Pre-op PMH/ROS General Date of Evaluation: September 30, 2018 Time of Evaluation: 17:34 Anesthesiologist: Maria R ASA Score: ASA 4 Mallampati Score Class I : Soft palate, uvula, fauces, pillars visible Class II: Soft palate, uvula, fauces visible Class III: Soft palate, base of uvula visible Class IV: Only hard plate visible Mallampati Classification: Class II Surgeon: Carl Diagnosis: Bradycardia Surgical Procedure: Permanent Pacemaker Anesthesia History: none Family History: no anesthesia problems Allergies: Coded Allergies: No Known Allergies (Unverified , 11/26/14) Medications: see eMAR Patient NPO?: Yes Past Medical History Cardiovascular: Reports: HTN Gastrointestinal/Genitourinary: Reports: other - ARF Neurologic/Psychiatric: Reports: dementia - AMS, depression/anxiety, TIA Endocrine: Reports: DM Hematology/Immune: Reports: other - Sepsis Anesthesia Pre-op Phys. Exam Physician Exam Last Vital Signs Date Time Temp Pulse Resp B/P (MAP) Pulse Ox O2 Delivery O2 Flow Rate FiO2 09/30/18 12:00 42 09/30/18 12:00 98.1 17 133/60 (84) 94 09/30/18 09:00 Room Air Constitutional: NAD Neurologic: CN 2-12 intact Cardiovascular: RRR Respiratory: CTA Gastrointestinal: S/NT/ND Airway Exam Mallampati Score: Class II MO: limited ROM: limited Teeth: missing, intact Anesthesia Pre-op A/P Labs Hematology Test 09/30/18 05:40 White Blood Count 5.2 K/UL (4.8-10.8) Red Blood Count 4.23 M/UL (4.70-6.10) L Hemoglobin 9.6 G/DL (14.2-18.0) L Hematocrit 30.4 % (42.0-52.0) L Mean Corpuscular Volume 72 FL (80-99) L Mean Corpuscular Hemoglobin 22.6 PG (27.0-31.0) L Mean Corpuscular Hemoglobin Concent 31.4 G/DL (32.0-36.0) L Red Cell Distribution Width 13.9 % (11.6-14.8) Platelet Count 169 K/UL (150-450) Mean Platelet Volume 5.4 FL (6.5-10.1) L Neutrophils (%) (Auto) 55.3 % (45.0-75.0) Lymphocytes (%) (Auto) 28.3 % (20.0-45.0) Monocytes (%) (Auto) 8.2 % (1.0-10.0) Eosinophils (%) (Auto) 7.1 % (0.0-3.0) H Basophils (%) (Auto) 1.0 % (0.0-2.0) Chemistry Test 09/30/18 05:40 Sodium Level 142 MMOL/L (136-145) Potassium Level 4.0 MMOL/L (3.5-5.1) Chloride Level 109 MMOL/L (98-107) H Carbon Dioxide Level 25 MMOL/L (21-32) Anion Gap 8 mmol/L (5-15) Blood Urea Nitrogen 20 mg/dL (7-18) H Creatinine 1.4 MG/DL (0.55-1.30) H Estimat Glomerular Filtration Rate mL/min (>60) Glucose Level 118 MG/DL (74-106) H Calcium Level 8.5 MG/DL (8.5-10.1) Risk Assessment & Plan Assessment: ASA 4 Plan: GA Status Change Before Surgery: No Pre-Antibiotics Drug: Charles Ly MD September 30, 2018 16:44
--- NOTE | 2018-09-30 17:52 | NUR ---
NURSE NOTES: Attempted tp remove restraints for 10 minutes. Pt pulling on suprapubic. Restraints reapplied for safety.
--- NOTE | 2018-09-30 17:54 | Infectious Diseases Prog Note ---
Assessment/Plan Problems: (1) Bacteremia Assessment & Plan: with coag negative staph, grew from one set, most likely contaminant , will stop zyvox empirically (2) Catheter-associated urinary tract infection Assessment & Plan: with E coli , and other gram negative rods , will switch unasyn empirically to cefepime pending final urine culture, was seen by urology for urine leak, and had his suprapubic catheter changed (3) Encephalopathy acute Assessment & Plan: suspect due to the above , continue hydration and wide spectrum antibiotics pending cultures (4) Suprapubic catheter dysfunction Assessment & Plan: leaking urine around it, had urology eval and his catheter was changed (5) ARF (acute renal failure) Assessment & Plan: due to the above, continue hydration and renally dosed meds , with worsening creatinine level, carrie switch vancomycin and zyvox pending final blood culture Subjective ROS Limited/Unobtainable: Yes Allergies: Coded Allergies: No Known Allergies (Unverified , 11/26/14) Subjective he was awake and alert, still confused , in restrains , afebrile, still has urine leaking around the suprapubic catheter Objective Vital Signs Last 24 Hour Vital Signs Date Time Temp Pulse Resp B/P (MAP) Pulse Ox O2 Delivery O2 Flow Rate FiO2 09/30/18 12:00 42 09/30/18 12:00 98.1 52 17 133/60 (84) 94 09/30/18 09:00 Room Air 09/30/18 08:46 55 158/65 09/30/18 08:00 98.0 55 20 158/65 (96) 95 09/30/18 08:00 51 09/30/18 06:54 Room Air 09/30/18 04:00 98.2 79 17 156/63 (94) 94 09/30/18 04:00 48 09/30/18 00:00 98.7 58 18 149/65 (93) 94 09/30/18 00:00 46 09/29/18 21:00 Room Air 09/29/18 20:00 56 09/29/18 20:00 98.9 56 17 150/66 (94) 93 Height (Feet): 5 Height (Inches): 5.00 Weight (Pounds): 143 General Appearance: WD/WN, no acute distress HEENT: normocephalic, atraumatic, anicteric, mucous membranes moist, PERRL Respiratory/Chest: chest wall non-tender, lungs clear, normal breath sounds, no respiratory distress, no accessory muscle use Cardiovascular: normal peripheral pulses, normal rate, regular rhythm, no gallop/murmur, no JVD Abdomen: normal bowel sounds, soft, non tender, no organomegaly, non distended , no mass, no scars Genitourinary: normal external genitalia Extremities: no cyanosis, no clubbing Skin: no rash, no lesions, no ulcers Neurologic/Psychiatric: education dean II-XII grossly normal, alert, responsive Lymphatic: no neck adenopathy, no groin adenopathy Musculoskeletal: normal muscle bulk, no effusion Objective awake , responsive, NAD Microbiology Date/Time Source Procedure Growth Status 09/27/18 18:00 Urine,Suprapubic Urine Culture - Preliminary Escherichia Coli Gram Negative Bacillus 2 Resulted Laboratory Tests Test 09/30/18 05:40 White Blood Count 5.2 K/UL (4.8-10.8) Red Blood Count 4.23 M/UL (4.70-6.10) L Hemoglobin 9.6 G/DL (14.2-18.0) L Hematocrit 30.4 % (42.0-52.0) L Mean Corpuscular Volume 72 FL (80-99) L Mean Corpuscular Hemoglobin 22.6 PG (27.0-31.0) L Mean Corpuscular Hemoglobin Concent 31.4 G/DL (32.0-36.0) L Red Cell Distribution Width 13.9 % (11.6-14.8) Platelet Count 169 K/UL (150-450) Mean Platelet Volume 5.4 FL (6.5-10.1) L Neutrophils (%) (Auto) 55.3 % (45.0-75.0) Lymphocytes (%) (Auto) 28.3 % (20.0-45.0) Monocytes (%) (Auto) 8.2 % (1.0-10.0) Eosinophils (%) (Auto) 7.1 % (0.0-3.0) H Basophils (%) (Auto) 1.0 % (0.0-2.0) Sodium Level 142 MMOL/L (136-145) Potassium Level 4.0 MMOL/L (3.5-5.1) Chloride Level 109 MMOL/L (98-107) H Carbon Dioxide Level 25 MMOL/L (21-32) Anion Gap 8 mmol/L (5-15) Blood Urea Nitrogen 20 mg/dL (7-18) H Creatinine 1.4 MG/DL (0.55-1.30) H Estimat Glomerular Filtration Rate mL/min (>60) Glucose Level 118 MG/DL (74-106) H Calcium Level 8.5 MG/DL (8.5-10.1) Current Medications Medications (Trade) Dose Ordered Sig/Charlene Route PRN Reason Start Time Stop Time Status Last Admin Dose Admin Amlodipine Besylate (Norvasc) 5 mg DAILY ORAL 09/28/18 09:00 10/28/18 08:59 09/30/18 08:46 Aspirin (Ecotrin) 81 mg DAILY ORAL 09/28/18 09:00 10/28/18 08:59 09/30/18 08:45 Cefepime HCl 1 gm/ Dextrose 55 ml @ 110 mls/hr Q24H IVPB 09/30/18 15:00 10/07/18 14:59 09/30/18 16:19 Citalopram Hydrobromide (celeXA) 40 mg BEDTIME ORAL 09/27/18 21:00 10/27/18 20:59 09/29/18 21:04 Clopidogrel Bisulfate (Plavix) 75 mg DAILY ORAL 09/28/18 09:00 10/28/18 08:59 09/30/18 08:45 Dextrose (Dextrose 50%) 25 ml Q30M PRN IV Hypoglycemia 09/29/18 10:00 10/29/18 09:59 Dextrose (Dextrose 50%) 50 ml Q30M PRN IV Hypoglycemia 09/29/18 10:00 10/29/18 09:59 Gentamicin Sulfate (Garamycin 0.3% Opt Sol) 1 drop BID BOTH EYES 09/29/18 18:00 10/06/18 17:59 09/30/18 08:45 Insulin Aspart (NovoLOG) BEFORE MEALS AND HS SUBQ 09/29/18 11:30 10/29/18 11:29 09/30/18 05:53 Lorazepam (Ativan 2mg/ml 1ml) 0.5 mg Q8H PRN IV For Anxiety 09/29/18 10:45 10/06/18 10:44 09/29/18 11:01 Metformin HCl (Glucophage) 500 mg TWICE A DAY ORAL 09/30/18 18:00 10/30/18 17:59 Olanzapine (ZyPREXA) 2.5 mg BEDTIME ORAL 09/27/18 21:00 10/28/18 08:59 09/29/18 21:04 Oxybutynin Chloride (Ditropan) 2.5 mg BID ORAL 09/27/18 18:00 10/27/18 17:59 09/30/18 08:46 Sodium Chloride 1,000 ml @ 50 mls/hr Q20H IV 09/29/18 14:15 10/29/18 14:14 09/30/18 14:46 Frida Billings M.D. September 30, 2018 17:54
[2018-09-30] MEDS: metFORMIN 500mg tab ORAL SCH (17:57)
--- NOTE | 2018-09-30 19:28 | NUR ---
HAND-OFF: Report given to [facility] Harris. Pt is in stable condition; plan of care endorsed.
[2018-09-30 20:00] VITALS: BP 132/65
[2018-09-30] MEDS: OLANZapine 2.5mg tab ORAL SCH (21:42)
[2018-09-30] MEDS: Citalopram Hydrobromide 10mg Tab ORAL SCH (21:42)
[2018-10-01] VITALS: BP 141/70
[2018-10-01 04:00] VITALS: BP 112/67
[2018-10-01] MEDS: NovoLOG Insulin Flexpen SUBQ SCH ×4 (06:30→21:00)
--- NOTE | 2018-10-01 07:15 | NUR ---
HAND-OFF: Report given to RHYS Garcia. Endorsed plan of care.
[2018-10-01 08:00] VITALS: BP 160/67
[2018-10-01] MEDS: Aspirin EC 81mg tab ORAL SCH (09:26)
[2018-10-01] MEDS: Oxybutynin 5mg tab ORAL SCH ×2 (09:26→17:34)
[2018-10-01] MEDS: Gentamicin 0.3% Opth Soln 5ml BOTH EYES SCH ×2 (09:26→17:34)
[2018-10-01] MEDS: metFORMIN 500mg tab ORAL SCH ×2 (09:26→17:35)
--- NOTE | 2018-10-01 09:36 | Urology Progress Note ---
Assessment/Plan Status: stable Assessment/Plan: 1. 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 2. Possible neurogenic bladder. 3. BPH history. 4. Urethral stricture. 5. Hematuria. 6. Pyuria, probable UTI and colonization of the urine. 7. Proteinuria. 8. Chronic kidney disease. 9. History of small nephrolithiasis. 10. Renal cyst. 11. Renal atrophy. cont with abx, may need to be adjusted, per ID new 24f SP tube placed 09/28 hand irrigated and do PRN monitor clinically consider renal imaging study ditropan 2.5 mg BID Subjective Allergies: Coded Allergies: No Known Allergies (Unverified , 11/26/14) Subjective all noted Objective Last 24 Hour Vital Signs Date Time Temp Pulse Resp B/P (MAP) Pulse Ox O2 Delivery O2 Flow Rate FiO2 10/01/18 09:26 55 160/67 10/01/18 08:00 97.4 55 18 160/67 (98) 95 10/01/18 04:00 97.3 55 18 112/67 (82) 96 10/01/18 04:00 55 10/01/18 00:00 54 10/01/18 00:00 97.7 54 18 141/70 (93) 97 09/30/18 21:00 Room Air 09/30/18 20:00 97.3 51 18 132/65 (87) 98 09/30/18 20:00 51 09/30/18 16:00 42 09/30/18 16:00 97.9 52 18 136/61 (86) 94 09/30/18 12:00 42 09/30/18 12:00 98.1 52 17 133/60 (84) 94 Intake and Output 09/30/18 10/01/18 18:59 06:59 Intake Total 240 ml Output Total 900 ml 820 ml Balance -660 ml -820 ml Intake Oral 240 ml Output Urine Total 900 ml 820 ml # Bowel Movements 1 Microbiology Date/Time Source Procedure Growth Status 09/27/18 13:45 Blood Blood Culture - Final Staphylococcus Sp Coag Neg Complete 09/27/18 18:00 Urine,Suprapubic Urine Culture - Final Escherichia Coli Proteus Mirabilis Complete 09/27/18 16:00 Rectum - Final NO CARBAPENEM-RESISTANT ENTEROBACTERI... Complete Current Medications Medications (Trade) Dose Ordered Sig/Charlene Route PRN Reason Start Time Stop Time Status Last Admin Dose Admin Amlodipine Besylate (Norvasc) 5 mg DAILY ORAL 09/28/18 09:00 10/28/18 08:59 10/01/18 09:26 Aspirin (Ecotrin) 81 mg DAILY ORAL 09/28/18 09:00 10/28/18 08:59 10/01/18 09:26 Cefepime HCl 1 gm/ Dextrose 55 ml @ 110 mls/hr Q24H IVPB 09/30/18 15:00 10/07/18 14:59 09/30/18 16:19 Citalopram Hydrobromide (celeXA) 40 mg BEDTIME ORAL 09/27/18 21:00 10/27/18 20:59 09/30/18 21:42 Clopidogrel Bisulfate (Plavix) 75 mg DAILY ORAL 09/28/18 09:00 10/28/18 08:59 10/01/18 09:26 Dextrose (Dextrose 50%) 25 ml Q30M PRN IV Hypoglycemia 09/29/18 10:00 10/29/18 09:59 Dextrose (Dextrose 50%) 50 ml Q30M PRN IV Hypoglycemia 09/29/18 10:00 10/29/18 09:59 [facility]in [facility] 1 drop BID BOTH EYES 09/29/18 18:00 10/06/18 17:59 10/01/18 09:26 Insulin Aspart (NovoLOG) BEFORE MEALS AND HS SUBQ 09/29/18 11:30 10/29/18 11:29 09/30/18 22:02 Lorazepam (Ativan 2mg/ml 1ml) 0.5 mg Q8H PRN IV For Anxiety 09/29/18 10:45 10/06/18 10:44 09/29/18 11:01 Metformin HCl (Glucophage) 500 mg TWICE A DAY ORAL 09/30/18 18:00 10/30/18 17:59 10/01/18 09:26 Olanzapine (ZyPREXA) 2.5 mg BEDTIME ORAL 09/27/18 21:00 10/28/18 08:59 09/30/18 21:42 Oxybutynin Chloride (Ditropan) 2.5 mg BID ORAL 09/27/18 18:00 10/27/18 17:59 10/01/18 09:26 Sodium Chloride 1,000 ml @ 50 mls/hr Q20H IV 09/29/18 14:15 10/29/18 14:14 09/30/18 14:46 Height (Feet): 5 Height (Inches): 5.00 Weight (Pounds): 143 Objective exam stable Camilo Arevalo MD Oct 01, 2018 09:36
--- NOTE | 2018-10-01 11:29 | General Progress Note ---
Assessment/Plan Status: stable Assessment/Plan: 1. 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 2. Encephalopathy 2nd to UTI - cont IV Abx and hydration. 3. 2nd degree heart block - pacemaker placement scheduled for wednesday per cardiology. 4. Depression - cont home Celexa. 5. leaky suprapubic cath - suprapubic cath changed by Dr page. 6. Dementia - stable. 7. DM II - on SSI and off Metformin 500 mg one po bid and monitor renal function. 8. HTN - Cont amlodipine. 9. CAD - cont home Plavix Subjective Date patient seen: Oct 01, 2018 Time patient seen: 11:20 Constitutional: Reports: weakness HEENT: Reports: no symptoms Cardiovascular: Reports: no symptoms Respiratory: Reports: no symptoms Gastrointestinal/Abdominal: Reports: no symptoms Genitourinary: Reports: no symptoms Neurologic/Psychiatric: Reports: no symptoms Endocrine: Reports: no symptoms Hematologic/Lymphatic: Reports: no symptoms Allergies: Coded Allergies: No Known Allergies (Unverified , 11/26/14) Subjective He is awake and doing better. afebrile. no sob or chest pain. Objective Last 24 Hour Vital Signs Date Time Temp Pulse Resp B/P (MAP) Pulse Ox O2 Delivery O2 Flow Rate FiO2 10/01/18 09:26 55 160/67 10/01/18 08:00 97.4 55 18 160/67 (98) 95 10/01/18 04:00 97.3 55 18 112/67 (82) 96 10/01/18 04:00 55 10/01/18 00:00 54 10/01/18 00:00 97.7 54 18 141/70 (93) 97 09/30/18 21:00 Room Air 09/30/18 20:00 97.3 51 18 132/65 (87) 98 09/30/18 20:00 51 09/30/18 16:00 42 09/30/18 16:00 97.9 52 18 136/61 (86) 94 09/30/18 12:00 42 09/30/18 12:00 98.1 52 17 133/60 (84) 94 Intake and Output 09/30/18 10/01/18 19:00 07:00 Intake Total 240 ml Output Total 900 ml 820 ml Balance -660 ml -820 ml Intake Oral 240 ml Output Urine Total 900 ml 820 ml # Bowel Movements 1 Height (Feet): 5 Height (Inches): 5.00 Weight (Pounds): 143 General Appearance: no apparent distress EENT: normal ENT inspection Neck: non-tender, supple Cardiovascular: normal peripheral pulses, normal rate, regular rhythm Respiratory/Chest: lungs clear, normal breath sounds Abdomen: non tender, soft Extremities: normal range of motion, non-tender Edema: no edema noted Arm (L), no edema noted Arm (R), no edema noted Leg (L), no edema noted Leg (R), no edema noted Pedal (L), no edema noted Pedal (R), no edema noted Generalized Skin: warm/dry Lymphatic: normal anterior cervical (L), normal anterior cervical (R), normal posterior cervical (L), normal posterior cervical (R), normal submandibular (L) , normal submandibular (R), normal supraclavicular (L), normal supraclavicular ( R), normal axillary (L), normal axillary (R), normal inguinal (L), normal inguinal (R), normal other Suad Loving MD Oct 01, 2018 11:29
--- NOTE | 2018-10-01 11:37 | NUR ---
NURSE NOTES: Left message with Dr. Cox about whether he wishes to hold plavix and aspirin before procedure wednesday; awaiting response.
[2018-10-01 12:00] VITALS: BP 159/68
[2018-10-01] MEDS: Cefepime HCl 1 GM in D5W 55 ML IVPB SCH (15:54)
[2018-10-01 16:00] VITALS: BP 153/64
--- NOTE | 2018-10-01 16:06 | NUR ---
PT Note PT abi completed, treatment initiated. Patient was able to sit at the EOB; unable to stand. Patient has bilateral knee limitation in ROM. Patient can benefit from PT services to increase his muscle strength and ROM to improve his functional mobility. Addendum: 10/01/18 at 1608 by KATHRIN WHITE PT Amended: Links added.
[2018-10-01] MEDS ORDERED: Tubing IV Secondary IV ONE (17:02)
--- NOTE | 2018-10-01 17:06 | NUR ---
NURSE NOTES: Per Dr. Cox, do not hold plavix or aspirin for procedure on Wednesday
--- NOTE | 2018-10-01 17:20 | Infectious Diseases Prog Note ---
Assessment/Plan Problems: (1) Catheter-associated urinary tract infection Assessment & Plan: with E coli , and MDR proteus mirabilis , will switch cefepime to ertapenem and treat for 10 days total . was seen by urology for urine leak, and had his suprapubic catheter changed . recommend to keep suprapubic catheter site clean and dry , please change catheter as needed (2) Bacteremia Assessment & Plan: with coag negative staph, grew from one set, most likely contaminant , monitor off antibiotics (3) Encephalopathy acute Assessment & Plan: suspect due to the above , continue hydration and wide spectrum antibiotics pending cultures (4) Suprapubic catheter dysfunction Assessment & Plan: leaking urine around it, had urology eval and his catheter was changed (5) ARF (acute renal failure) Assessment & Plan: due to the above, continue hydration and renally dosed meds , avoid nephrotoxics Subjective Constitutional: Reports: no symptoms HEENT: Reports: no symptoms Respiratory: Reports: no symptoms Breasts: Reports: no symptoms Cardiovascular: Reports: no symptoms Gastrointestinal/Abdominal: Reports: no symptoms Genitourinary: Reports: no symptoms Neurologic: Reports: no symptoms Psychiatric: Reports: no symptoms Skin: Reports: no symptoms Endocrine: Reports: no symptoms Hematologic: Reports: no symptoms Musculoskeletal: Reports: no symptoms Allergies: Coded Allergies: No Known Allergies (Unverified , 11/26/14) Subjective he was more awake and coherent , responds well to verbal commands , still in restrains , afebrile, has minimal urine leaking around the suprapubic catheter Objective Vital Signs Last 24 Hour Vital Signs Date Time Temp Pulse Resp B/P (MAP) Pulse Ox O2 Delivery O2 Flow Rate FiO2 10/01/18 16:00 97.8 56 18 153/64 (93) 95 10/01/18 12:00 97.9 51 20 159/68 (98) 96 10/01/18 12:00 50 10/01/18 09:26 55 160/67 10/01/18 09:00 Room Air 10/01/18 08:00 58 10/01/18 08:00 97.4 55 18 160/67 (98) 95 10/01/18 04:00 97.3 55 18 112/67 (82) 96 10/01/18 04:00 55 10/01/18 00:00 54 10/01/18 00:00 97.7 54 18 141/70 (93) 97 09/30/18 21:00 Room Air 09/30/18 20:00 97.3 51 18 132/65 (87) 98 09/30/18 20:00 51 Height (Feet): 5 Height (Inches): 5.00 Weight (Pounds): 143 General Appearance: WD/WN, no acute distress, cachetic HEENT: normocephalic, atraumatic, anicteric, mucous membranes moist, PERRL, EOMI, pharynx normal, supple, no JVD Respiratory/Chest: chest wall non-tender, lungs clear, normal breath sounds, no respiratory distress, no accessory muscle use Cardiovascular: normal peripheral pulses, normal rate, regular rhythm, no gallop/murmur, no JVD Abdomen: normal bowel sounds, soft, non tender, no organomegaly, non distended , no mass, no scars Genitourinary: normal external genitalia, other - suprapubic catheter site looks dry and clean with minimal draining Extremities: no cyanosis, no clubbing Skin: no rash, no lesions, no ulcers Neurologic/Psychiatric: steward/stewardess third II-XII grossly normal, alert, responsive Lymphatic: no neck adenopathy, no groin adenopathy Musculoskeletal: normal muscle bulk, no effusion Objective awake , responsive, NAD Current Medications Medications (Trade) Dose Ordered Sig/Charlene Route PRN Reason Start Time Stop Time Status Last Admin Dose Admin Amlodipine Besylate (Norvasc) 5 mg DAILY ORAL 09/28/18 09:00 10/28/18 08:59 10/01/18 09:26 Aspirin (Ecotrin) 81 mg DAILY ORAL 09/28/18 09:00 10/28/18 08:59 10/01/18 09:26 Cefepime HCl 1 gm/ Dextrose 55 ml @ 110 mls/hr Q24H IVPB 09/30/18 15:00 10/07/18 14:59 10/01/18 15:54 Citalopram Hydrobromide (celeXA) 40 mg BEDTIME ORAL 09/27/18 21:00 10/27/18 20:59 09/30/18 21:42 Clopidogrel Bisulfate (Plavix) 75 mg DAILY ORAL 09/28/18 09:00 10/28/18 08:59 10/01/18 09:26 Dextrose (Dextrose 50%) 25 ml Q30M PRN IV Hypoglycemia 09/29/18 10:00 10/29/18 09:59 Dextrose (Dextrose 50%) 50 ml Q30M PRN IV Hypoglycemia 09/29/18 10:00 10/29/18 09:59 Gentamicin Sulfate (Garamycin 0.3% Opt Sol) 1 drop BID BOTH EYES 09/29/18 18:00 10/06/18 17:59 10/01/18 09:26 Insulin Aspart (NovoLOG) BEFORE MEALS AND HS SUBQ 09/29/18 11:30 10/29/18 11:29 10/01/18 12:02 Lorazepam (Ativan 2mg/ml 1ml) 0.5 mg Q8H PRN IV For Anxiety 09/29/18 10:45 10/06/18 10:44 09/29/18 11:01 Metformin HCl (Glucophage) 500 mg TWICE A DAY ORAL 09/30/18 18:00 10/30/18 17:59 10/01/18 09:26 Olanzapine (ZyPREXA) 2.5 mg BEDTIME ORAL 09/27/18 21:00 10/28/18 08:59 09/30/18 21:42 Oxybutynin Chloride (Ditropan) 2.5 mg BID ORAL 09/27/18 18:00 10/27/18 17:59 10/01/18 09:26 Sodium Chloride 1,000 ml @ 50 mls/hr Q20H IV 09/29/18 14:15 10/29/18 14:14 10/01/18 11:24 Frida Billings M.D. Oct 01, 2018 17:20
[2018-10-01] MEDS: Ertapenem 1 GM in NS 55 ML IVPB SCH (18:03)
--- NOTE | 2018-10-01 19:19 | NUR ---
NURSE NOTES: Received pt from Lou. Pt is awake and resting in bed. Pt is A+Ox1, no signs of pain/SOB. Respirations are even and unlabored on room air. IV site is patent and running fluids at prescribed rate. Suprapubic catheter in place and patent. Bilateral wrist restraints in place and no skin breakdown noted. Bed is at lowest position, brakes engaged, siderails x3, bed alarm on, and call light within reach. Pt is in stable condition; will continue to monitor.
--- NOTE | 2018-10-01 19:20 | NUR ---
NURSE NOTES: Report given to RHYS Harris. Plan of care endorsed; plan of care endorsed.
[2018-10-01 20:00] VITALS: BP 153/63
[2018-10-01] MEDS: OLANZapine 2.5mg tab ORAL SCH (22:39)
[2018-10-01] MEDS: Citalopram Hydrobromide 10mg Tab ORAL SCH (22:40)
[2018-10-02] VITALS: BP 125/74
[2018-10-02 04:00] VITALS: BP 130/81
[2018-10-02] MEDS: NovoLOG Insulin Flexpen SUBQ SCH ×4 (06:23→21:32)
--- NOTE | 2018-10-02 07:29 | NUR ---
HAND-OFF: Report given to RHYS Perez. Endorsed plan of care.
--- NOTE | 2018-10-02 07:30 | NUR ---
NURSE NOTES: I received the patient resting in bed. Patient alert to name. Soft wrist restraints on the patient. Patient does not display any signs of distress or SOB. Bed in the lowest position and call light within reach. I will continue to monitor the patient and implement care.
[2018-10-02 08:00] VITALS: BP 179/74
[2018-10-02 08:38] LABS: EOSINOPHILS % (AUTO) 9.5 % (0.0-3.0); HEMATOCRIT 35.2 % (42.0-52.0); HEMOGLOBIN 11.1 G/DL (14.2-18.0); LYMPHOCYTES % (AUTO) 22.4 % (20.0-45.0); MEAN CORPUSCULAR VOLUME 71 FL (80-99); MONOCYTES % (AUTO) 6.2 % (1.0-10.0); NEUTROPHILS % (AUTO) 60.8 % (45.0-75.0); PLATELET COUNT 195 K/UL (150-450); RED BLOOD COUNT 4.99 M/UL (4.70-6.10); RED CELL DISTRIBUTION WIDTH 13.7 % (11.6-14.8); WHITE BLOOD COUNT 5.8 K/UL (4.8-10.8)
--- NOTE | 2018-10-02 08:39 | Cardiac Electrophysiology PN ---
Assessment/Plan Assessment/Plan 1. 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 At base line also has sinus bradycardia with very long first-degree AV block and is off any sinus-saumya or AV-saumya blocking agents. Lowest HR this am while awake is 26. Scheduled for PPM implanty tomorrow 2. History of hypertension, on amlodipine 5 mg daily. 3. Questionable coronary artery disease. The patient is on aspirin, Plavix, and amlodipine. 4. Diabetes, on metformin. 5. Suprapubic catheter with recurrent urinary tract infection, on IV antibiotic per Dr. Billings. 6. Dementia. DW Son Mr Nida Arnold at [phone] who agrees with pacer implant and consent is signed KOBE JOINER and Dr Loving Subjective Subjective Heart rate continues to drop to 20s and 30s while awake! Objective Last 24 Hour Vital Signs Date Time Temp Pulse Resp B/P (MAP) Pulse Ox O2 Delivery O2 Flow Rate FiO2 10/02/18 08:00 97.0 63 20 179/74 (109) 94 10/02/18 04:00 53 10/02/18 04:00 98.6 53 18 130/81 (97) 100 10/02/18 00:00 97.7 52 16 125/74 (91) 96 10/02/18 00:00 52 10/01/18 21:00 Room Air 10/01/18 20:00 98.0 55 17 153/63 (93) 96 10/01/18 20:00 55 10/01/18 16:00 97.8 56 18 153/64 (93) 95 10/01/18 16:00 50 10/01/18 12:00 97.9 51 20 159/68 (98) 96 10/01/18 12:00 50 10/01/18 09:26 55 160/67 10/01/18 09:00 Room Air Intake and Output 10/01/18 10/02/18 18:59 06:59 Intake Total 360 ml 20 ml Output Total 1700 ml 1100 ml Balance -1340 ml -1080 ml Intake Oral 360 ml 20 ml Output Urine Total 1700 ml 1100 ml # Bowel Movements 1 Laboratory Tests Test 10/02/18 07:07 White Blood Count Pending Red Blood Count Pending Hemoglobin Pending Hematocrit Pending Mean Corpuscular Volume Pending Mean Corpuscular Hemoglobin Pending Mean Corpuscular Hemoglobin Concent Pending Red Cell Distribution Width Pending Platelet Count Pending Mean Platelet Volume Pending Neutrophils (%) (Auto) Pending Lymphocytes (%) (Auto) Pending Monocytes (%) (Auto) Pending Eosinophils (%) (Auto) Pending Basophils (%) (Auto) Pending Sodium Level Pending Potassium Level Pending Chloride Level Pending Carbon Dioxide Level Pending Blood Urea Nitrogen Pending Creatinine Pending Estimat Glomerular Filtration Rate Pending Glucose Level Pending Calcium Level Pending Objective HEAD AND NECK: No JVD or carotid bruit. LUNGS: Clear. CARDIOVASCULAR: Dinh S1 and S2. Bradycardic. ABDOMEN: Soft. Status post suprapubic catheter. EXTREMITIES: No pitting edema. Cameron Cox MD Oct 02, 2018 08:39
[2018-10-02 09:01] LABS: ANION GAP 11 mmol/L (5-15); BLOOD UREA NITROGEN 18 mg/dL (7-18); CALCIUM 8.3 MG/DL (8.5-10.1); CARBON DIOXIDE 24 MMOL/L (21-32); CHLORIDE 107 MMOL/L (98-107); CREATININE 1.3 MG/DL (0.55-1.30); POTASSIUM 3.8 MMOL/L (3.5-5.1); SODIUM 142 MMOL/L (136-145)
--- NOTE | 2018-10-02 09:41 | Urology Progress Note ---
Assessment/Plan Status: stable Assessment/Plan: 1. 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 2. Possible neurogenic bladder. 3. BPH history. 4. Urethral stricture. 5. Hematuria. 6. Pyuria, probable UTI and colonization of the urine. 7. Proteinuria. 8. Chronic kidney disease. 9. History of small nephrolithiasis. 10. Renal cyst. 11. Renal atrophy. cont with abx as ordered, adjusted per ID new 24f SP tube placed 09/28 hand irrigated and do PRN monitor clinically consider renal imaging study ditropan 2.5 mg BID Subjective Allergies: Coded Allergies: No Known Allergies (Unverified , 11/26/14) Subjective all noted Objective Last 24 Hour Vital Signs Date Time Temp Pulse Resp B/P (MAP) Pulse Ox O2 Delivery O2 Flow Rate FiO2 10/02/18 08:00 97.0 63 20 179/74 (109) 94 10/02/18 04:00 53 10/02/18 04:00 98.6 53 18 130/81 (97) 100 10/02/18 00:00 97.7 52 16 125/74 (91) 96 10/02/18 00:00 52 10/01/18 21:00 Room Air 10/01/18 20:00 98.0 55 17 153/63 (93) 96 10/01/18 20:00 55 10/01/18 16:00 97.8 56 18 153/64 (93) 95 10/01/18 16:00 50 10/01/18 12:00 97.9 51 20 159/68 (98) 96 10/01/18 12:00 50 Intake and Output 10/01/18 10/02/18 18:59 06:59 Intake Total 360 ml 20 ml Output Total 1700 ml 1100 ml Balance -1340 ml -1080 ml Intake Oral 360 ml 20 ml Output Urine Total 1700 ml 1100 ml # Bowel Movements 1 Microbiology Date/Time Source Procedure Growth Status 09/27/18 13:45 Blood Blood Culture - Final Staphylococcus Sp Coag Neg Complete 09/27/18 18:00 Urine,Suprapubic Urine Culture - Final Escherichia Coli Proteus Mirabilis Complete 09/27/18 16:00 Rectum - Final NO CARBAPENEM-RESISTANT ENTEROBACTERI... Complete Current Medications Medications (Trade) Dose Ordered Sig/Charlene Route PRN Reason Start Time Stop Time Status Last Admin Dose Admin Amlodipine Besylate (Norvasc) 5 mg DAILY ORAL 09/28/18 09:00 10/28/18 08:59 10/01/18 09:26 Aspirin (Ecotrin) 81 mg DAILY ORAL 09/28/18 09:00 10/28/18 08:59 10/01/18 09:26 Citalopram Hydrobromide (celeXA) 40 mg BEDTIME ORAL 09/27/18 21:00 10/27/18 20:59 10/01/18 22:40 Clopidogrel Bisulfate (Plavix) 75 mg DAILY ORAL 09/28/18 09:00 10/28/18 08:59 10/01/18 09:26 Dextrose (Dextrose 50%) 25 ml Q30M PRN IV Hypoglycemia 09/29/18 10:00 10/29/18 09:59 Dextrose (Dextrose 50%) 50 ml Q30M PRN IV Hypoglycemia 09/29/18 10:00 10/29/18 09:59 Ertapenem 1 gm/ Sodium Chloride 55 ml @ 110 mls/hr Q24H IVPB 10/01/18 18:00 10/11/18 17:59 10/01/18 18:03 [facility] 1 drop BID BOTH EYES 09/29/18 18:00 10/06/18 17:59 10/01/18 17:34 Insulin Aspart (NovoLOG) BEFORE MEALS AND HS SUBQ 09/29/18 11:30 10/29/18 11:29 10/01/18 17:37 Lorazepam (Ativan 2mg/ml 1ml) 0.5 mg Q8H PRN IV For Anxiety 09/29/18 10:45 10/06/18 10:44 09/29/18 11:01 Metformin HCl (Glucophage) 500 mg TWICE A DAY ORAL 09/30/18 18:00 10/30/18 17:59 10/01/18 17:35 Olanzapine (ZyPREXA) 2.5 mg BEDTIME ORAL 09/27/18 21:00 10/28/18 08:59 10/01/18 22:39 Oxybutynin Chloride (Ditropan) 2.5 mg BID ORAL 09/27/18 18:00 10/27/18 17:59 10/01/18 17:34 Sodium Chloride 1,000 ml @ 50 mls/hr Q20H IV 09/29/18 14:15 10/29/18 14:14 10/02/18 07:40 Laboratory Tests 10/02/18 07:07: White Blood Count 5.8, Red Blood Count 4.99, Hemoglobin 11.1L, Hematocrit 35.2L , Mean Corpuscular Volume 71L, Mean Corpuscular Hemoglobin 22.3L, Mean Corpuscular Hemoglobin Concent 31.6L, Red Cell Distribution Width 13.7, Platelet Count 195, Mean Platelet Volume 5.7L, Neutrophils (%) (Auto) 60.8, Lymphocytes (%) (Auto) 22.4, Monocytes (%) (Auto) 6.2, Eosinophils (%) (Auto) 9.5H, Basophils (%) (Auto) 1.0, Sodium Level 142, Potassium Level 3.8, Chloride Level 107, Carbon Dioxide Level 24, Anion Gap 11, Blood Urea Nitrogen 18, Creatinine 1.3, Estimat Glomerular Filtration Rate , Glucose Level 96, Calcium Level 8.3L Height (Feet): 5 Height (Inches): 5.00 Weight (Pounds): 143 Objective exam stable Camilo Arevalo MD Oct 02, 2018 09:41
[2018-10-02] MEDS: Gentamicin 0.3% Opth Soln 5ml BOTH EYES SCH ×2 (10:17→17:36)
[2018-10-02] MEDS: metFORMIN 500mg tab ORAL SCH ×2 (10:17→17:36)
[2018-10-02] MEDS: Aspirin EC 81mg tab ORAL SCH (10:17)
[2018-10-02] MEDS: Citalopram Hydrobromide 10mg Tab ORAL SCH ×2 (10:17→21:24)
[2018-10-02] MEDS: Oxybutynin 5mg tab ORAL SCH ×2 (10:27→17:36)
--- NOTE | 2018-10-02 11:51 | General Progress Note ---
Assessment/Plan Status: stable Assessment/Plan: 1. 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 2. Encephalopathy 2nd to UTI - resolving. cont IV Abx and hydration. 3. 2nd degree heart block - pacemaker placement scheduled for wednesday per cardiology. 4. Depression - cont home Celexa. 5. leaky suprapubic cath - suprapubic cath changed by Dr page. 6. Dementia - stable. 7. DM II - on SSI and off Metformin 500 mg one po bid and monitor renal function. 8. HTN - Cont amlodipine. 9. CAD - cont home Plavix Subjective Date patient seen: Oct 02, 2018 Time patient seen: 11:30 Constitutional: Reports: weakness HEENT: Reports: no symptoms Cardiovascular: Reports: no symptoms Respiratory: Reports: no symptoms Gastrointestinal/Abdominal: Reports: no symptoms Genitourinary: Reports: no symptoms Neurologic/Psychiatric: Reports: no symptoms Endocrine: Reports: no symptoms Hematologic/Lymphatic: Reports: no symptoms Allergies: Coded Allergies: No Known Allergies (Unverified , 11/26/14) Subjective He is awake and doing better. afebrile. no sob or chest pain. he is going for pacemaker placement tomorrow. Objective Last 24 Hour Vital Signs Date Time Temp Pulse Resp B/P (MAP) Pulse Ox O2 Delivery O2 Flow Rate FiO2 10/02/18 10:17 63 179/74 10/02/18 09:00 Room Air 10/02/18 08:00 97.0 63 20 179/74 (109) 94 10/02/18 07:53 56 10/02/18 04:00 53 10/02/18 04:00 98.6 53 18 130/81 (97) 100 10/02/18 00:00 97.7 52 16 125/74 (91) 96 10/02/18 00:00 52 10/01/18 21:00 Room Air 10/01/18 20:00 98.0 55 17 153/63 (93) 96 10/01/18 20:00 55 10/01/18 16:00 97.8 56 18 153/64 (93) 95 10/01/18 16:00 50 10/01/18 12:00 97.9 51 20 159/68 (98) 96 10/01/18 12:00 50 Intake and Output 10/01/18 10/02/18 18:59 06:59 Intake Total 360 ml 20 ml Output Total 1700 ml 1100 ml Balance -1340 ml -1080 ml Intake Oral 360 ml 20 ml Output Urine Total 1700 ml 1100 ml # Bowel Movements 1 Laboratory Tests 10/02/18 07:07: White Blood Count 5.8, Red Blood Count 4.99, Hemoglobin 11.1L, Hematocrit 35.2L , Mean Corpuscular Volume 71L, Mean Corpuscular Hemoglobin 22.3L, Mean Corpuscular Hemoglobin Concent 31.6L, Red Cell Distribution Width 13.7, Platelet Count 195, Mean Platelet Volume 5.7L, Neutrophils (%) (Auto) 60.8, Lymphocytes (%) (Auto) 22.4, Monocytes (%) (Auto) 6.2, Eosinophils (%) (Auto) 9.5H, Basophils (%) (Auto) 1.0, Sodium Level 142, Potassium Level 3.8, Chloride Level 107, Carbon Dioxide Level 24, Anion Gap 11, Blood Urea Nitrogen 18, Creatinine 1.3, Estimat Glomerular Filtration Rate , Glucose Level 96, Calcium Level 8.3L Height (Feet): 5 Height (Inches): 5.00 Weight (Pounds): 143 General Appearance: no apparent distress, alert EENT: normal ENT inspection Neck: non-tender, normal alignment, supple Cardiovascular: normal rate, regular rhythm Respiratory/Chest: lungs clear, normal breath sounds, no respiratory distress Abdomen: normal bowel sounds, non tender, soft Extremities: normal range of motion, non-tender Edema: no edema noted Arm (L), no edema noted Arm (R), no edema noted Leg (L), no edema noted Leg (R), no edema noted Pedal (L), no edema noted Pedal (R), no edema noted Generalized Neurologic: alert, responsive Skin: warm/dry Lymphatic: normal anterior cervical (L), normal anterior cervical (R), normal posterior cervical (L), normal posterior cervical (R), normal submandibular (L) , normal submandibular (R), normal supraclavicular (L), normal supraclavicular ( R), normal axillary (L), normal axillary (R), normal inguinal (L), normal inguinal (R), normal other Azizollahi,Farid MD Oct 02, 2018 11:51
[2018-10-02 12:00] VITALS: BP 168/83
[2018-10-02 16:00] VITALS: BP 166/69
[2018-10-02] MEDS: Ertapenem 1 GM in NS 55 ML IVPB SCH (17:36)
--- NOTE | 2018-10-02 17:57 | Infectious Diseases Prog Note ---
Assessment/Plan Problems: (1) Catheter-associated urinary tract infection Assessment & Plan: with E coli , and MDR proteus mirabilis , continue ertapenem for 10 days total . was seen by urology for urine leak, and had his suprapubic catheter changed . recommend to keep suprapubic catheter site clean and dry , please change catheter as needed (2) Bacteremia Assessment & Plan: with coag negative staph, grew from one set, most likely contaminant , monitor off antibiotics (3) Encephalopathy acute Assessment & Plan: improving , suspect due to the above , continue hydration and wide spectrum antibiotics pending cultures (4) Suprapubic catheter dysfunction Assessment & Plan: leaking urine around it, had urology eval and his catheter was changed (5) ARF (acute renal failure) Assessment & Plan: due to the above, continue hydration and renally dosed meds , avoid nephrotoxics Subjective Constitutional: Reports: no symptoms HEENT: Reports: no symptoms Respiratory: Reports: no symptoms Breasts: Reports: no symptoms Cardiovascular: Reports: no symptoms Gastrointestinal/Abdominal: Reports: no symptoms Genitourinary: Reports: no symptoms Neurologic: Reports: no symptoms Psychiatric: Reports: no symptoms Skin: Reports: no symptoms Endocrine: Reports: no symptoms Hematologic: Reports: no symptoms Musculoskeletal: Reports: no symptoms Allergies: Coded Allergies: No Known Allergies (Unverified , 11/26/14) Subjective he was more awake and coherent , responds well to verbal commands , still in restrains , afebrile, has minimal urine leaking around the suprapubic catheter Objective Vital Signs Last 24 Hour Vital Signs Date Time Temp Pulse Resp B/P (MAP) Pulse Ox O2 Delivery O2 Flow Rate FiO2 10/02/18 16:00 97.9 52 20 166/69 (101) 96 10/02/18 15:28 52 10/02/18 12:00 52 10/02/18 12:00 97.5 57 20 168/83 (111) 95 10/02/18 10:17 63 179/74 10/02/18 09:00 Room Air 10/02/18 08:00 97.0 63 20 179/74 (109) 94 10/02/18 07:53 56 10/02/18 04:00 53 10/02/18 04:00 98.6 53 18 130/81 (97) 100 10/02/18 00:00 97.7 52 16 125/74 (91) 96 10/02/18 00:00 52 10/01/18 21:00 Room Air 10/01/18 20:00 98.0 55 17 153/63 (93) 96 10/01/18 20:00 55 Height (Feet): 5 Height (Inches): 5.00 Weight (Pounds): 143 General Appearance: WD/WN, no acute distress HEENT: normocephalic, atraumatic, anicteric, mucous membranes moist, PERRL, EOMI, pharynx normal, supple, no JVD Respiratory/Chest: chest wall non-tender, lungs clear, normal breath sounds, no respiratory distress, no accessory muscle use Cardiovascular: normal peripheral pulses, normal rate, regular rhythm, no gallop/murmur, no JVD Abdomen: normal bowel sounds, soft, non tender, no organomegaly, non distended , no mass, no scars Genitourinary: normal external genitalia Extremities: no cyanosis, no clubbing Skin: no rash, no lesions, no ulcers Neurologic/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: 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 operator II-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 grossly normal, alert, responsive Lymphatic: no neck adenopathy, no groin adenopathy Musculoskeletal: normal muscle bulk, no effusion Objective awake , responsive, NAD Laboratory Tests Test 10/02/18 07:07 White Blood Count 5.8 K/UL (4.8-10.8) Red Blood Count 4.99 M/UL (4.70-6.10) Hemoglobin 11.1 G/DL (14.2-18.0) L Hematocrit 35.2 % (42.0-52.0) L Mean Corpuscular Volume 71 FL (80-99) L Mean Corpuscular Hemoglobin 22.3 PG (27.0-31.0) L Mean Corpuscular Hemoglobin Concent 31.6 G/DL (32.0-36.0) L Red Cell Distribution Width 13.7 % (11.6-14.8) Platelet Count 195 K/UL (150-450) Mean Platelet Volume 5.7 FL (6.5-10.1) L Neutrophils (%) (Auto) 60.8 % (45.0-75.0) Lymphocytes (%) (Auto) 22.4 % (20.0-45.0) Monocytes (%) (Auto) 6.2 % (1.0-10.0) Eosinophils (%) (Auto) 9.5 % (0.0-3.0) H Basophils (%) (Auto) 1.0 % (0.0-2.0) Sodium Level 142 MMOL/L (136-145) Potassium Level 3.8 MMOL/L (3.5-5.1) Chloride Level 107 MMOL/L (98-107) Carbon Dioxide Level 24 MMOL/L (21-32) Anion Gap 11 mmol/L (5-15) Blood Urea Nitrogen 18 mg/dL (7-18) Creatinine 1.3 MG/DL (0.55-1.30) Estimat Glomerular Filtration Rate mL/min (>60) Glucose Level 96 MG/DL (74-106) Calcium Level 8.3 MG/DL (8.5-10.1) L Current Medications Medications (Trade) Dose Ordered Sig/Charlene Route PRN Reason Start Time Stop Time Status Last Admin Dose Admin Amlodipine Besylate (Norvasc) 5 mg DAILY ORAL 09/28/18 09:00 10/28/18 08:59 10/02/18 10:17 Aspirin (Ecotrin) 81 mg DAILY ORAL 09/28/18 09:00 10/28/18 08:59 10/02/18 10:17 Citalopram Hydrobromide (celeXA) 40 mg BEDTIME ORAL 09/27/18 21:00 10/27/18 20:59 10/02/18 10:17 Clopidogrel Bisulfate (Plavix) 75 mg DAILY ORAL 09/28/18 09:00 10/28/18 08:59 10/02/18 10:17 Dextrose (Dextrose 50%) 25 ml Q30M PRN IV Hypoglycemia 09/29/18 10:00 10/29/18 09:59 Dextrose (Dextrose 50%) 50 ml Q30M PRN IV Hypoglycemia 09/29/18 10:00 10/29/18 09:59 Ertapenem 1 gm/ Sodium Chloride 55 ml @ 110 mls/hr Q24H IVPB 10/01/18 18:00 10/11/18 17:59 10/02/18 17:36 Gentamicin Sulfate (Garamycin 0.3% Opt Sol) 1 drop BID BOTH EYES 09/29/18 18:00 10/06/18 17:59 10/02/18 17:36 Insulin Aspart (NovoLOG) BEFORE MEALS AND HS SUBQ 09/29/18 11:30 10/29/18 11:29 10/02/18 17:49 Lorazepam (Ativan 2mg/ml 1ml) 0.5 mg Q8H PRN IV For Anxiety 09/29/18 10:45 10/06/18 10:44 09/29/18 11:01 Metformin HCl (Glucophage) 500 mg TWICE A DAY ORAL 09/30/18 18:00 10/30/18 17:59 10/02/18 17:36 Olanzapine (ZyPREXA) 2.5 mg BEDTIME ORAL 09/27/18 21:00 10/28/18 08:59 10/01/18 22:39 Oxybutynin Chloride (Ditropan) 2.5 mg BID ORAL 09/27/18 18:00 10/27/18 17:59 10/02/18 17:36 Sodium Chloride 1,000 ml @ 50 mls/hr Q20H IV 09/29/18 14:15 10/29/18 14:14 10/02/18 07:40 Frida Billings M.D. Oct 02, 2018 17:57
--- NOTE | 2018-10-02 19:20 | NUR ---
HAND-OFF: Report given to Vivian Barth RN.
--- NOTE | 2018-10-02 19:21 | NUR ---
NURSE NOTES: Received pt from RHYS Perez. Pt is awake and resting in bed tolerating room air, with daughter at bedside. Pt iv site intact. Bed in lowest position, locked, and call light within reach. Will continue plan of care.
[2018-10-02 20:00] VITALS: BP 164/70
[2018-10-02] MEDS: OLANZapine 2.5mg tab ORAL SCH (21:24)
[2018-10-03] VITALS (16 sets, daily range): BP systolic 102–175; BP diastolic 58–84
[2018-10-03] MEDS: NovoLOG Insulin Flexpen SUBQ SCH ×4 (06:14→21:00)
--- NOTE | 2018-10-03 07:09 | NUR ---
HAND-OFF: Report given to RHYS Perez. Endorsed plan of care.
--- NOTE | 2018-10-03 07:16 | NUR ---
NURSE NOTES: I received the patient resting in bed. Patient's IV intact and fluids infusing. Bed in the lowest position and call light within reach. Patient does not display any signs of distress or SOB. I will continue to monitor the patient and implement care.
[2018-10-03] MEDS: Gentamicin 0.3% Opth Soln 5ml BOTH EYES SCH ×2 (09:00→17:33)
[2018-10-03] MEDS: Aspirin EC 81mg tab ORAL SCH (09:00)
[2018-10-03] MEDS: metFORMIN 500mg tab ORAL SCH ×2 (09:00→17:28)
[2018-10-03] MEDS: Oxybutynin 5mg tab ORAL SCH ×2 (09:03→17:28)
--- NOTE | 2018-10-03 10:51 | Urology Progress Note ---
Assessment/Plan Status: stable Assessment/Plan: 1. 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 2. Possible neurogenic bladder. 3. BPH history. 4. Urethral stricture. 5. Hematuria. 6. Pyuria, probable UTI and colonization of the urine. 7. Proteinuria. 8. Chronic kidney disease. 9. History of small nephrolithiasis. 10. Renal cyst. 11. Renal atrophy. cont with abx as ordered, adjusted per ID new 24f SP tube placed 09/28 hand irrigated and do PRN monitor clinically consider renal imaging study ditropan 2.5 mg BID Subjective Allergies: Coded Allergies: No Known Allergies (Unverified , 11/26/14) Subjective all noted Objective Last 24 Hour Vital Signs Date Time Temp Pulse Resp B/P (MAP) Pulse Ox O2 Delivery O2 Flow Rate FiO2 10/03/18 09:03 94 174/75 10/03/18 09:00 Room Air 10/03/18 08:00 97.4 94 18 174/75 (108) 94 10/03/18 07:58 56 10/03/18 04:00 97.2 53 18 156/58 (90) 95 10/03/18 04:00 53 10/03/18 00:00 50 10/03/18 00:00 98.0 50 17 151/66 (94) 99 10/02/18 21:00 Room Air 10/02/18 20:00 98.3 57 17 164/70 (101) 93 10/02/18 20:00 57 10/02/18 16:00 97.9 52 20 166/69 (101) 96 10/02/18 15:28 52 10/02/18 12:00 52 10/02/18 12:00 97.5 57 20 168/83 (111) 95 Intake and Output 10/02/18 10/03/18 18:59 06:59 Intake Total 690 ml 20 ml Output Total 750 ml 950 ml Balance -60 ml -930 ml Intake Oral 240 ml 20 ml IV Total 450 ml Output Urine Total 750 ml 950 ml # Voids 2 Microbiology Date/Time Source Procedure Growth Status 09/27/18 13:45 Blood Blood Culture - Final Staphylococcus Sp Coag Neg Complete 09/27/18 18:00 Urine,Suprapubic Urine Culture - Final Escherichia Coli Proteus Mirabilis Complete 09/27/18 16:00 Rectum - Final NO CARBAPENEM-RESISTANT ENTEROBACTERI... Complete Current Medications Medications (Trade) Dose Ordered Sig/Charlene Route PRN Reason Start Time Stop Time Status Last Admin Dose Admin Amlodipine Besylate (Norvasc) 5 mg DAILY ORAL 09/28/18 09:00 10/28/18 08:59 10/03/18 09:03 Aspirin (Ecotrin) 81 mg DAILY ORAL 09/28/18 09:00 10/28/18 08:59 10/02/18 10:17 Citalopram Hydrobromide (celeXA) 40 mg BEDTIME ORAL 09/27/18 21:00 10/27/18 20:59 10/02/18 21:24 Clopidogrel Bisulfate (Plavix) 75 mg DAILY ORAL 09/28/18 09:00 10/28/18 08:59 10/02/18 10:17 Dextrose (Dextrose 50%) 25 ml Q30M PRN IV Hypoglycemia 09/29/18 10:00 10/29/18 09:59 Dextrose (Dextrose 50%) 50 ml Q30M PRN IV Hypoglycemia 09/29/18 10:00 10/29/18 09:59 Ertapenem 1 gm/ Sodium Chloride 55 ml @ 110 mls/hr Q24H IVPB 10/01/18 18:00 10/11/18 17:59 10/02/18 17:36 Gentamicin Sulfate (Garamycin 0.3% [facility]) 1 drop BID BOTH EYES 09/29/18 18:00 10/06/18 17:59 10/02/18 17:36 Insulin Aspart (NovoLOG) BEFORE MEALS AND HS SUBQ 09/29/18 11:30 10/29/18 11:29 10/02/18 21:32 Lorazepam (Ativan 2mg/ml 1ml) 0.5 mg Q8H PRN IV For Anxiety 09/29/18 10:45 10/06/18 10:44 09/29/18 11:01 Metformin HCl (Glucophage) 500 mg TWICE A DAY ORAL 09/30/18 18:00 10/30/18 17:59 10/02/18 17:36 Olanzapine (ZyPREXA) 2.5 mg BEDTIME ORAL 09/27/18 21:00 10/28/18 08:59 10/02/18 21:24 Oxybutynin Chloride (Ditropan) 2.5 mg BID ORAL 09/27/18 18:00 10/27/18 17:59 10/03/18 09:03 Sodium Chloride 1,000 ml @ 50 mls/hr Q20H IV 09/29/18 14:15 10/29/18 14:14 10/03/18 03:40 Height (Feet): 5 Height (Inches): 5.00 Weight (Pounds): 143 Objective exam stable Camilo Arevalo MD Oct 03, 2018 10:51
--- NOTE | 2018-10-03 10:56 | Cardiac Electrophysiology PN ---
Assessment/Plan Assessment/Plan 1. 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 At base line also has sinus bradycardia with very long first-degree AV block and is off any sinus-saumya or AV-saumya blocking agents. Lowest HR while awake was 26. Scheduled for PPM implant today 2. History of hypertension, on amlodipine 5 mg daily. 3. Questionable coronary artery disease. The patient is on aspirin, Plavix, and amlodipine. 4. Diabetes, on metformin. 5. Suprapubic catheter with recurrent urinary tract infection, on IV antibiotic per Dr. Billings. 6. Dementia. DW Son Mr. Nida Arnold at [phone] again this am who agrees with pacer implant DW RN DW Dr Billings Subjective Subjective HR dropped to 35 again and is NPO for PPM implant today Objective Last 24 Hour Vital Signs Date Time Temp Pulse Resp B/P (MAP) Pulse Ox O2 Delivery O2 Flow Rate FiO2 10/03/18 09:03 94 174/75 10/03/18 09:00 Room Air 10/03/18 08:00 97.4 94 18 174/75 (108) 94 10/03/18 07:58 56 10/03/18 04:00 97.2 53 18 156/58 (90) 95 10/03/18 04:00 53 10/03/18 00:00 50 10/03/18 00:00 98.0 50 17 151/66 (94) 99 10/02/18 21:00 Room Air 10/02/18 20:00 98.3 57 17 164/70 (101) 93 10/02/18 20:00 57 10/02/18 16:00 97.9 52 20 166/69 (101) 96 10/02/18 15:28 52 10/02/18 12:00 52 10/02/18 12:00 97.5 57 20 168/83 (111) 95 Intake and Output 10/02/18 10/03/18 18:59 06:59 Intake Total 690 ml 20 ml Output Total 750 ml 950 ml Balance -60 ml -930 ml Intake Oral 240 ml 20 ml IV Total 450 ml Output Urine Total 750 ml 950 ml # Voids 2 Objective HEAD AND NECK: No JVD or carotid bruit. LUNGS: Clear. CARDIOVASCULAR: Dinh S1 and S2. ABDOMEN: Soft. Status post suprapubic catheter. EXTREMITIES: No pitting edema. Cameron Cox MD Oct 03, 2018 10:56
--- NOTE | 2018-10-03 11:35 | Pre-Procedure Note/Attestation ---
Pre-Procedure Note/Attestation Complete Prior to Procedure Planned Procedure: left Indications for Procedure Pre-Operative Diagnosis: Sick sinus syndrome with bradycardia down to 20s off any SETH or AVN blockers Attestation I attest that I discussed the nature of the procedure; its benefits; risks and complications; and alternatives (and the risks and benefits of such alternatives ), prior to the procedure, with the patient (or the patient's legal pharmaceutical service representative). I attest that, if there was a reasonable possibility of needing a blood transfusion, the patient (or the patient's legal pharmaceutical service representative) was given the [facility] standardized written summary, pursuant to the Paolo [place] Blood Safety Act ([place] Health and Safety Code # 1645, as amended). I attest that I re-evaluated the patient just prior to the surgery and that there has been no change in the patient's H&P, except as documented below: Cameron Cox MD Oct 03, 2018 11:35
[2018-10-03] MEDS ORDERED: Isovue-M 300 15ml INJ ONE ×2 (12:00→13:10)
[2018-10-03] MEDS ORDERED: Lidocaine 1% Plain 30 ml INJ ONE ×2 (12:01→12:16)
[2018-10-03] MEDS ORDERED: Sodium Chloride 10ml vial INJ ONE (12:13)
[2018-10-03] MEDS ORDERED: Midazolam 2mg/2ml Inj ONE (12:14)
[2018-10-03] MEDS ORDERED: LR 1000ml 1,000 ML IVLG SCH (12:27)
[2018-10-03] MEDS ORDERED: HYDROcodone/Acetamin 7.5/325 tab ORAL PRN (12:30)
[2018-10-03] MEDS ORDERED: Hydromorphone 0.5mg/0.5ml inj IVP PRN (12:30)
[2018-10-03] MEDS ORDERED: oxyCODONE HCL/Acetaminophen 5/325mg ORAL PRN (12:30)
[2018-10-03] MEDS ORDERED: fentaNYL 100 mcg/2 mL IV PRN (12:30)
[2018-10-03] MEDS ORDERED: Midazolam 2mg/2ml Inj IVP PRN (12:30)
[2018-10-03] MEDS ORDERED: NS Irrig 1000ml ONE (12:30)
[2018-10-03] MEDS ORDERED: LORazepam Inj 2mg/ml 1ml IV PRN (12:30)
[2018-10-03] MEDS ORDERED: Atropine Sulfate 0.4mg/ml inj IVP PRN (12:30)
[2018-10-03] MEDS ORDERED: HYDROcodone/Acetamin 5/325 tab ORAL PRN (12:30)
[2018-10-03] MEDS ORDERED: DiphenhydrAMINE 50mg/ml Inj IVP PRN (12:30)
[2018-10-03] MEDS ORDERED: Labetalol 5mg/ml 20ml vial IV PRN (12:30)
[2018-10-03] MEDS ORDERED: LR 1000ml ONE (12:30)
--- NOTE | 2018-10-03 13:02 | Immediate Post-Op Evaluation ---
Immediate Post-Op Evalulation Immediate Post-Op Evalulation Procedure: Permanent Pacemaker Date of Evaluation: Oct 03, 2018 Time of Evaluation: 14:12 IV Fluids: 300 LR Blood Products: 0 Estimated Blood Loss: 10 Urinary Output: 0 Blood Pressure Systolic: 121 Blood Pressure Diastolic: 66 Pulse Rate: 60 Respiratory Rate: 16 O2 Sat by Pulse Oximetry: 98 Pain Score (1-10): 2 Nausea: No Vomiting: No Complications 0 Patient Status: awake, reacts, patent, none Hydration Status: adequate Dru Gram Ancef IV Given Within 1 Hr of Incision: Yes Time Given: 12:41 Charles Heck MD Oct 03, 2018 13:02
[2018-10-03] MEDS ORDERED: Sterile Water Irrig 1000ml IRRIG ONE (13:13)
--- NOTE | 2018-10-03 13:53 | Brief Operative Note ---
Immediate Post Operative Note Operative Note Pre-op Diagnosis: Sick sinus syndrome with bradycardia down to 20s off any SETH or AVN blockers Procedure: Successful Dual chamber [employer] pacer placement dictated [id number] Post-op Diagnosis: same as pre-op Specimen: none Complications: none Condition: stable Fluids: none Implant(s) used?: Yes Cameron Cox MD Oct 03, 2018 13:53
[2018-10-03] MEDS ORDERED: Morphine Sulfate 2mg/ml Inj(IV/IM USE ONLY) IVP PRN (14:00)
[2018-10-03] MEDS ORDERED: Tylenol #3 tab (300mg/30mg) ORAL PRN (14:00)
--- NOTE | 2018-10-03 14:28 | Diagnostic Imaging Report ---
Indication: Intraprocedural imaging COMPARISON: None FINDINGS: Single fluoroscopic image were obtained intraoperatively. This single image showing 2 pacemaker wires projected over the right atrium and right ventricle. IMPRESSION: Procedural imaging as described above
--- NOTE | 2018-10-03 15:06 | NUR ---
PT NOTE Patient off the unit for pacemaker placement. Ana JOINER notified that MD clearance is needed to resume PT following the procedure. Will await MD clearance for PT.
[2018-10-03] MEDS: ceFAZolin sod 1 GM in D5W 55 ML IVP SCH ×2 (15:36→22:06)
--- NOTE | 2018-10-03 16:39 | General Progress Note ---
Assessment/Plan Status: stable Assessment/Plan: 1. 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 2. Encephalopathy 2nd to UTI - resolving. cont IV Abx and hydration. 3. 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 4. Depression - cont home Celexa. 5. leaky suprapubic cath - suprapubic cath changed by Dr page. 6. Dementia - stable. 7. DM II - on SSI. 8. HTN - Cont amlodipine. 9. CAD - cont home Plavix Subjective Date patient seen: Oct 03, 2018 Time patient seen: 16:00 Constitutional: Reports: weakness HEENT: Reports: no symptoms Cardiovascular: Reports: no symptoms Respiratory: Reports: no symptoms Gastrointestinal/Abdominal: Reports: no symptoms Genitourinary: Reports: no symptoms Neurologic/Psychiatric: Reports: no symptoms Endocrine: Reports: no symptoms Hematologic/Lymphatic: Reports: no symptoms Allergies: Coded Allergies: No Known Allergies (Unverified , 11/26/14) Subjective He is drowsy and just came back from pacemaker placement. Afebrile. no sob or chest pain. he had his pacemaker placed today. Objective Last 24 Hour Vital Signs Date Time Temp Pulse Resp B/P (MAP) Pulse Ox O2 Delivery O2 Flow Rate FiO2 10/03/18 15:35 97.1 61 18 160/80 (106) 98 10/03/18 14:45 97.8 60 15 162/76 97 Nasal Cannula 3 10/03/18 14:30 60 15 173/76 100 Nasal Cannula 3 10/03/18 14:20 66 12 171/80 97 Simple Mask 6 10/03/18 14:11 60 16 164/77 97 Simple Mask 6 10/03/18 14:06 60 16 133/70 97 Simple Mask 6 10/03/18 14:01 97.5 60 16 121/66 98 Simple Mask 6 10/03/18 13:58 60 16 98 10/03/18 12:00 97.4 60 18 114/79 (91) 98 10/03/18 09:03 94 174/75 10/03/18 09:00 Room Air 10/03/18 08:00 97.4 94 18 174/75 (108) 94 10/03/18 07:58 56 10/03/18 04:00 97.2 53 18 156/58 (90) 95 10/03/18 04:00 53 10/03/18 00:00 50 10/03/18 00:00 98.0 50 17 151/66 (94) 99 10/02/18 21:00 Room Air 10/02/18 20:00 98.3 57 17 164/70 (101) 93 10/02/18 20:00 57 Intake and Output 10/02/18 10/03/18 18:59 06:59 Intake Total 690 ml 20 ml Output Total 750 ml 950 ml Balance -60 ml -930 ml Intake Oral 240 ml 20 ml IV Total 450 ml Output Urine Total 750 ml 950 ml # Voids 2 Height (Feet): 5 Height (Inches): 5.00 Weight (Pounds): 143 General Appearance: no apparent distress, lethargic EENT: normal ENT inspection Neck: non-tender, normal alignment, supple Cardiovascular: normal rate, regular rhythm Respiratory/Chest: lungs clear, normal breath sounds, no respiratory distress Abdomen: non tender, soft, no organomegaly Extremities: normal range of motion, non-tender Edema: no edema noted Arm (L), no edema noted Arm (R), no edema noted Leg (L), no edema noted Leg (R), no edema noted Pedal (L), no edema noted Pedal (R), no edema noted Generalized Neurologic: alert, responsive Skin: warm/dry Lymphatic: normal anterior cervical (L), normal anterior cervical (R), normal posterior cervical (L), normal posterior cervical (R), normal submandibular (L) , normal submandibular (R), normal supraclavicular (L), normal supraclavicular ( R), normal axillary (L), normal axillary (R), normal inguinal (L), normal inguinal (R), normal other Suad Loving MD Oct 03, 2018 16:39
--- NOTE | 2018-10-03 16:56 | Diagnostic Imaging Report ---
Indication: Dyspnea Comparison: None A single view chest radiograph was obtained. Findings: Aorta is mildly calcified. Borderline cardiomegaly noted. Pacemaker noted on the left side. No pneumothorax seen. There are 2 leads. One projects over the right atrium and the other over the right ventricle region. The lungs are clear. Pulmonary vascularity is appropriate. The diaphragmatic contour is smooth and costophrenic angles are sharp. No pleural effusions are identified. The bones are unremarkable. Impression: Status post pacemaker. No pneumothorax seen
--- NOTE | 2018-10-03 17:00 | NUR ---
CASE MANAGEMENT:REVIEW 10/03/18 SI: SICK SINUS SYNDROME 97.2 53 18 156/58 95% ON RA IS: TO SURGERY FOR PACEMAKER PLACEMENT : TELEMETRY STATUS DCP: FROM [facility]
[2018-10-03] MEDS: Ertapenem 1 GM in NS 55 ML IVPB SCH (17:28)
--- NOTE | 2018-10-03 17:54 | Infectious Diseases Prog Note ---
Assessment/Plan Problems: (1) Catheter-associated urinary tract infection Assessment & Plan: with E coli , and MDR proteus mirabilis , continue ertapenem for 10 days total . was seen by urology for urine leak, and had his suprapubic catheter changed . recommend to keep suprapubic catheter site clean and dry , please change catheter as needed (2) Bacteremia Assessment & Plan: with coag negative staph, grew from one set, most likely contaminant , monitor off antibiotics (3) Encephalopathy acute Assessment & Plan: improving , suspect due to the above , continue hydration and wide spectrum antibiotics pending cultures (4) Suprapubic catheter dysfunction Assessment & Plan: leaking urine around it, had urology eval and his catheter was changed (5) ARF (acute renal failure) Assessment & Plan: due to the above, continue hydration and renally dosed meds , avoid nephrotoxics Subjective Constitutional: Reports: no symptoms HEENT: Reports: no symptoms Respiratory: Reports: no symptoms Breasts: Reports: no symptoms Cardiovascular: Reports: no symptoms Gastrointestinal/Abdominal: Reports: no symptoms Genitourinary: Reports: no symptoms Neurologic: Reports: no symptoms Psychiatric: Reports: no symptoms Skin: Reports: no symptoms Endocrine: Reports: no symptoms Hematologic: Reports: no symptoms Musculoskeletal: Reports: no symptoms Allergies: Coded Allergies: No Known Allergies (Unverified , 11/26/14) Subjective he was more awake and coherent , responds well to verbal commands , still in restrains , afebrile, has minimal urine leaking around the suprapubic catheter Objective Vital Signs Last 24 Hour Vital Signs Date Time Temp Pulse Resp B/P (MAP) Pulse Ox O2 Delivery O2 Flow Rate FiO2 10/03/18 17:30 96.4 69 18 170/80 (110) 97 10/03/18 16:30 96.3 63 18 175/81 (112) 97 10/03/18 15:39 60 10/03/18 15:35 97.1 61 18 160/80 (106) 98 10/03/18 14:45 97.8 60 15 162/76 97 Nasal Cannula 3 10/03/18 14:30 60 15 173/76 100 Nasal Cannula 3 10/03/18 14:20 66 12 171/80 97 Simple Mask 6 10/03/18 14:11 60 16 164/77 97 Simple Mask 6 10/03/18 14:06 60 16 133/70 97 Simple Mask 6 10/03/18 14:01 97.5 60 16 121/66 98 Simple Mask 6 10/03/18 13:58 60 16 98 10/03/18 12:00 97.4 60 18 114/79 (91) 98 10/03/18 11:39 54 10/03/18 09:03 94 174/75 10/03/18 09:00 Room Air 10/03/18 08:00 97.4 94 18 174/75 (108) 94 10/03/18 07:58 56 10/03/18 04:00 97.2 53 18 156/58 (90) 95 10/03/18 04:00 53 10/03/18 00:00 50 10/03/18 00:00 98.0 50 17 151/66 (94) 99 10/02/18 21:00 Room Air 10/02/18 20:00 98.3 57 17 164/70 (101) 93 10/02/18 20:00 57 Height (Feet): 5 Height (Inches): 5.00 Weight (Pounds): 143 General Appearance: WD/WN, no acute distress HEENT: normocephalic, atraumatic, anicteric, mucous membranes moist, PERRL Respiratory/Chest: chest wall non-tender, lungs clear, normal breath sounds, no respiratory distress, no accessory muscle use Cardiovascular: normal peripheral pulses, normal rate, regular rhythm, regularly irregular, no gallop/murmur, no JVD Abdomen: normal bowel sounds, soft, non tender, no organomegaly, non distended , no mass, no scars Genitourinary: normal external genitalia Extremities: no cyanosis, no clubbing Skin: no rash, no lesions, no ulcers Neurologic/Psychiatric: alert, oriented x 3, responsive Lymphatic: no neck adenopathy, no groin adenopathy Musculoskeletal: normal muscle bulk, no effusion Objective awake , responsive, NAD Current Medications Medications (Trade) Dose Ordered Sig/Charlene Route PRN Reason Start Time Stop Time Status Last Admin Dose Admin Acetaminophen (Tylenol) 650 mg Q6H PRN ORAL FHMP 10/03/18 14:00 11/02/18 13:59 Acetaminophen/ Codeine Phosphate (Tylenol #3) 1 tab Q4H PRN ORAL Moderate Pain (Pain Scale 4-6) 10/03/18 14:00 10/10/18 13:59 Amlodipine Besylate (Norvasc) 5 mg DAILY ORAL 09/28/18 09:00 10/28/18 08:59 10/03/18 09:03 Aspirin (Ecotrin) 81 mg DAILY ORAL 09/28/18 09:00 10/28/18 08:59 10/02/18 10:17 Cefazolin Sodium 1 gm/Dextrose 55 ml @ 110 mls/hr Q8HR IVP 10/03/18 15:00 10/04/18 06:29 10/03/18 15:36 Citalopram Hydrobromide (celeXA) 40 mg BEDTIME ORAL 09/27/18 21:00 10/27/18 20:59 10/02/18 21:24 Clopidogrel Bisulfate (Plavix) 75 mg DAILY ORAL 09/28/18 09:00 10/28/18 08:59 10/02/18 10:17 Dextrose (Dextrose 50%) 25 ml Q30M PRN IV Hypoglycemia 09/29/18 10:00 10/29/18 09:59 Dextrose (Dextrose 50%) 50 ml Q30M PRN IV Hypoglycemia 09/29/18 10:00 10/29/18 09:59 Ertapenem 1 gm/ Sodium Chloride 55 ml @ 110 mls/hr Q24H IVPB 10/01/18 18:00 10/11/18 17:59 10/03/18 17:28 Gentamicin Sulfate (Garamycin 0.3% [employer]) 1 drop BID BOTH EYES 09/29/18 18:00 10/06/18 17:59 10/03/18 17:33 Insulin Aspart (NovoLOG) BEFORE MEALS AND HS SUBQ 09/29/18 11:30 10/29/18 11:29 10/02/18 21:32 Lorazepam (Ativan 2mg/ml 1ml) 0.5 mg Q8H PRN IV For Anxiety 09/29/18 10:45 10/06/18 10:44 09/29/18 11:01 Metformin HCl (Glucophage) 500 mg TWICE A DAY ORAL 09/30/18 18:00 10/30/18 17:59 10/03/18 17:28 Morphine Sulfate (Morphine Sulfate) 2 mg Q1H PRN IVP Severe Pain (Pain Scale 7-10) 10/03/18 14:00 10/10/18 13:59 Olanzapine (ZyPREXA) 2.5 mg BEDTIME ORAL 09/27/18 21:00 10/28/18 08:59 10/02/18 21:24 Ondansetron HCl (Zofran) 4 mg Q6H PRN IVP Nausea & Vomiting 10/03/18 14:00 11/02/18 13:59 Oxybutynin Chloride (Ditropan) 2.5 mg BID ORAL 09/27/18 18:00 10/27/18 17:59 10/03/18 17:28 Sodium Chloride 1,000 ml @ 50 mls/hr Q20H IV 09/29/18 14:15 10/29/18 14:14 10/03/18 03:40 Frida Billings M.D. Oct 03, 2018 17:54
--- NOTE | 2018-10-03 18:00 | NUR ---
NURSE NOTES: I talked with Dr. Cox about the patient working with physical therapy. He said he needs to assess the patient on 10/04/18 before physical therapy works with the patient.
--- NOTE | 2018-10-03 19:31 | NUR ---
HAND-OFF: Report given to RHYS Tabares.
--- NOTE | 2018-10-03 19:50 | NUR ---
NURSE NOTES: Received pt from RHYS Perez. Pt awake, alert, and talkative. Bed in lowest position. Call light within reach. Surgical sight intact with ice pack resting on top of it. Bed in lowest position. Call light within reach. Will continue to monitor.
--- NOTE | 2018-10-03 20:00 | Operative Note - Dictated ---
DATE OF OPERATION: 10/03/2018 DUAL-CHAMBER PERMANENT PACEMAKER IMPLANTATION: SURGEON: Cameron Cox M.D. INDICATION FOR PROCEDURE: Symptomatic bradycardia, sinus pauses, and heart rate down to 20s as well as intermittent high-grade AV block. PROCEDURE PERFORMED: 1. Dual-chamber permanent pacemaker implantation. 2. Fluoroscopic supervision and interpretation. 3. Pacemaker programming during initial implant. OPERATIVE REPORT: The patient was brought into the operating room in fasting state after informed consent was obtained. The patient was prepped and draped in usual fashion. Conscious sedation was obtained by the anesthesiologist. After prep and drape under sterile condition after the patient received antibiotics within an hour of incision, a total of 20 mL of lidocaine was given to left prepectoralis area. An incision was made along the left deltopectoral groove. Sharp and blunt dissection was made to the level of pectoralis fascia. The cephalic vein cutdown was performed. The right atrial and right ventricular lead was placed through this access and was placed in right atrial appendage and right ventricular apex with excellent sensing and pacing parameters. Both these were affixed on the pectoralis fascia. A pocket was made close to the venous access that was irrigated with antibiotic solution. Both leads are connected to the pacemaker and left in the pocket. The pocket was then closed in three layers using 2-0 Vicryl and Dermabond. The patient suffered no immediate complications from the procedure and was transferred to recovery room in stable condition. FINDINGS: The pacemaker is an [employer] MRI pacemaker, model number [id number], serial number [id number]. The right atrial lead is from [employer] Tendril [id number] 46 centimeter, serial number [id number]. The right ventricular lead is from [employer], it is Tendril STS [id number] 52 centimeter, serial number [id number]. The P-wave amplitude was 1.2 millivolts, threshold was 1.5 volts at 0.4 millisecond, impedance of 300 ohms. R-wave was 8 millivolts, threshold was 0.75 volts at 0.4 millisecond, impedance of 400 ohms. IMPRESSION: 1. Successful dual-chamber permanent pacemaker implantation. 2. Pacemaker was programmed lower rate of 60 up to 130 with a of 200 and of 150 milliseconds. 3. No immediate complications from the procedure. Cameron Cox M.D. DR: DIPESH JOB#: [id number] CC:
[2018-10-03] MEDS: OLANZapine 2.5mg tab ORAL SCH (22:07)
[2018-10-03] MEDS: Citalopram Hydrobromide 10mg Tab ORAL SCH (22:07)
[2018-10-04] VITALS: BP 166/74
--- NOTE | 2018-10-04 00:57 | NUR ---
NURSE NOTES: cALLED AND LEFT A MESSAGE WITH dR. Sweeney regarding pts BP. Awaiting cALL BACK.
[2018-10-04 01:11] VITALS: BP 161/72
--- NOTE | 2018-10-04 01:12 | NUR ---
NURSE NOTES: dR. Schneider gave orders for an early dose of amlodipine 5m tab one time. Pt lethargic. Will try again in an hour
[2018-10-04 02:13] VITALS: BP 158/71
[2018-10-04 03:57] VITALS: BP 152/75
[2018-10-04] MEDS: NovoLOG Insulin Flexpen SUBQ SCH ×2 (06:20→11:35)
[2018-10-04] MEDS: ceFAZolin sod 1 GM in D5W 55 ML IVP SCH (06:21)
[2018-10-04 06:33] LABS: BASOPHILS % (AUTO) 0.9 % (0.0-2.0); EOSINOPHILS % (AUTO) 12.3 % (0.0-3.0); HEMATOCRIT 35.5 % (42.0-52.0); LYMPHOCYTES % (AUTO) 21.9 % (20.0-45.0); MEAN CORPUSCULAR VOLUME 73 FL (80-99); MONOCYTES % (AUTO) 6.4 % (1.0-10.0); NEUTROPHILS % (AUTO) 58.6 % (45.0-75.0); PLATELET COUNT 198 K/UL (150-450); RED BLOOD COUNT 4.89 M/UL (4.70-6.10); RED CELL DISTRIBUTION WIDTH 13.9 % (11.6-14.8); WHITE BLOOD COUNT 7.1 K/UL (4.8-10.8)
[2018-10-04 07:11] LABS: ANION GAP 12 mmol/L (5-15); BLOOD UREA NITROGEN 23 mg/dL (7-18); CALCIUM 8.5 MG/DL (8.5-10.1); CARBON DIOXIDE 22 MMOL/L (21-32); CHLORIDE 106 MMOL/L (98-107); CREATININE 1.2 MG/DL (0.55-1.30); SODIUM 140 MMOL/L (136-145)
--- NOTE | 2018-10-04 07:43 | NUR ---
NURSE NOTES: Received report from RHYS Tabares. Patient is resting in bed, sleeping. No signs and symptoms of acute distress at this time. Kept clean, dry, and comfortable in bed. Safety precaution in place; side rails X2 up, call light within reach, bed in lowest position, brakes and alarm on at all times. Restraint on. IV running at RX dose. Supra pubic catheter on. Will continue plan of care.
[2018-10-04 08:00] VITALS: BP 158/75
[2018-10-04] MEDS: metFORMIN 500mg tab ORAL SCH (08:39)
[2018-10-04] MEDS: Aspirin EC 81mg tab ORAL SCH (08:39)
[2018-10-04] MEDS: Gentamicin 0.3% Opth Soln 5ml BOTH EYES SCH (08:39)
[2018-10-04] MEDS: Oxybutynin 5mg tab ORAL SCH (08:39)
[2018-10-04] MEDS ORDERED: GARAMYCIN 0.3%1 DROP BOTH EYES (09:07)
[2018-10-04] MEDS ORDERED: INVANZ1 G1 IVPB (09:07)
--- NOTE | 2018-10-04 09:10 | General Progress Note ---
Assessment/Plan Status: stable Assessment/Plan: 1. Recurrent UTI with hx of multi-drug resistance - cont IV antibiotic and D/C planning to [facility] in today if cleared by cardiology. 2. Encephalopathy 2nd to UTI - resolving. cont IV Abx and hydration. 3. 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 4. Depression - cont home Celexa. 5. leaky suprapubic cath - suprapubic cath changed by Dr page. 6. Dementia - stable. 7. DM II - on SSI. 8. HTN - Cont amlodipine. 9. CAD - cont home Plavix Subjective Date patient seen: Oct 04, 2018 Time patient seen: 09:00 Constitutional: Reports: weakness HEENT: Reports: no symptoms Cardiovascular: Reports: no symptoms Respiratory: Reports: no symptoms Gastrointestinal/Abdominal: Reports: no symptoms Genitourinary: Reports: no symptoms Neurologic/Psychiatric: Reports: no symptoms Endocrine: Reports: no symptoms Hematologic/Lymphatic: Reports: no symptoms Allergies: Coded Allergies: No Known Allergies (Unverified , 11/26/14) Subjective He is awake and post op s/p pacemaker placement yesterday. Afebrile. no sob or chest pain. Objective Last 24 Hour Vital Signs Date Time Temp Pulse Resp B/P (MAP) Pulse Ox O2 Delivery O2 Flow Rate FiO2 10/04/18 08:39 64 158/75 10/04/18 08:00 98.0 64 18 158/75 (102) 98 10/04/18 04:00 60 10/04/18 03:57 97.5 61 20 152/75 (100) 99 10/04/18 02:13 61 158/71 (100) 10/04/18 01:11 61 161/72 (101) 10/04/18 00:00 69 10/04/18 00:00 98.1 61 20 166/74 (104) 94 10/03/18 22:01 70 102/82 (89) 99 10/03/18 21:00 Nasal Cannula 3.0 10/03/18 20:00 98.4 70 18 175/84 (114) 97 10/03/18 20:00 60 10/03/18 17:30 96.4 69 18 170/80 (110) 97 10/03/18 16:30 96.3 63 18 175/81 (112) 97 10/03/18 15:39 60 10/03/18 15:35 97.1 61 18 160/80 (106) 98 10/03/18 14:45 97.8 60 15 162/76 97 Nasal Cannula 3 10/03/18 14:30 60 15 173/76 100 Nasal Cannula 3 10/03/18 14:20 66 12 171/80 97 Simple Mask 6 10/03/18 14:11 60 16 164/77 97 Simple Mask 6 10/03/18 14:06 60 16 133/70 97 Simple Mask 6 10/03/18 14:01 97.5 60 16 121/66 98 Simple Mask 6 10/03/18 13:58 60 16 98 10/03/18 12:00 97.4 60 18 114/79 (91) 98 10/03/18 11:39 54 Intake and Output 10/03/18 10/04/18 19:00 07:00 Intake Total 470 ml Output Total 260 ml 450 ml Balance 210 ml -450 ml Intake Oral 120 ml IV Total 350 ml Output Urine Total 250 ml 450 ml Estimated Blood Loss 10 ml Laboratory Tests 10/04/18 06:02: White Blood Count 7.1, Red Blood Count 4.89, Hemoglobin 11.0L, Hematocrit 35.5L , Mean Corpuscular Volume 73L, Mean Corpuscular Hemoglobin 22.6L, Mean Corpuscular Hemoglobin Concent 31.1L, Red Cell Distribution Width 13.9, Platelet Count 198, Mean Platelet Volume 5.5L, Neutrophils (%) (Auto) 58.6, Lymphocytes (%) (Auto) 21.9, Monocytes (%) (Auto) 6.4, Eosinophils (%) (Auto) 12.3H, Basophils (%) (Auto) 0.9, Sodium Level 140, Potassium Level 4.0, Chloride Level 106, Carbon Dioxide Level 22, Anion Gap 12, Blood Urea Nitrogen 23H, Creatinine 1.2, Estimat Glomerular Filtration Rate , Glucose Level 84, Calcium Level 8.5 Height (Feet): 5 Height (Inches): 5.00 Weight (Pounds): 143 General Appearance: alert EENT: normal ENT inspection Neck: non-tender, normal alignment, supple Cardiovascular: normal rate, regular rhythm Respiratory/Chest: chest wall non-tender, lungs clear, normal breath sounds Abdomen: normal bowel sounds, non tender, soft Extremities: normal range of motion, non-tender Edema: no edema noted Arm (L), no edema noted Arm (R), no edema noted Leg (L), no edema noted Leg (R), no edema noted Pedal (L), no edema noted Pedal (R), no edema noted Generalized Neurologic: alert, responsive Skin: warm/dry Lymphatic: normal anterior cervical (L), normal anterior cervical (R), normal posterior cervical (L), normal posterior cervical (R), normal submandibular (L) , normal submandibular (R), normal supraclavicular (L), normal supraclavicular ( R), normal axillary (L), normal axillary (R), normal inguinal (L), normal inguinal (R), normal other Suad Loving MD Oct 04, 2018 09:10
--- NOTE | 2018-10-04 09:45 | NUR ---
NURSE NOTES: Per Dr. Loving, Patient will get discharged with his supra pubic catheter.
--- NOTE | 2018-10-04 09:58 | NUR ---
NURSE NOTES: Per dr. Cox, Pacemaker needs to be checked and interrogated. IF everything okay patient will get discharged.
--- NOTE | 2018-10-04 10:04 | Cardiac Electrophysiology PN ---
Assessment/Plan Assessment/Plan 1. 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 At base line also has sinus bradycardia with very long first-degree AV block and is off any sinus-saumya or AV-saumya blocking agents. Lowest HR while awake was 26. S/P [facility] [employer] PPM implant 10/03/18. CXR no Ptx OK to DC after pacer reinterrogation this am. 2. History of hypertension, on amlodipine 5 mg daily. 3. Questionable coronary artery disease. The patient is on aspirin, Plavix, and amlodipine. 4. Diabetes, on metformin. 5. Suprapubic catheter with recurrent urinary tract infection, on IV antibiotic per Dr. Billings. 6. Dementia. DW RN Subjective Subjective S/P PPM implant yesterday. No CP or SOB. Remains V paced. Objective Last 24 Hour Vital Signs Date Time Temp Pulse Resp B/P (MAP) Pulse Ox O2 Delivery O2 Flow Rate FiO2 10/04/18 08:39 64 158/75 10/04/18 08:00 98.0 64 18 158/75 (102) 98 10/04/18 04:00 60 10/04/18 03:57 97.5 61 20 152/75 (100) 99 10/04/18 02:13 61 158/71 (100) 10/04/18 01:11 61 161/72 (101) 10/04/18 00:00 69 10/04/18 00:00 98.1 61 20 166/74 (104) 94 10/03/18 22:01 70 102/82 (89) 99 10/03/18 21:00 Nasal Cannula 3.0 10/03/18 20:00 98.4 70 18 175/84 (114) 97 10/03/18 20:00 60 10/03/18 17:30 96.4 69 18 170/80 (110) 97 10/03/18 16:30 96.3 63 18 175/81 (112) 97 10/03/18 15:39 60 10/03/18 15:35 97.1 61 18 160/80 (106) 98 10/03/18 14:45 97.8 60 15 162/76 97 Nasal Cannula 3 10/03/18 14:30 60 15 173/76 100 Nasal Cannula 3 10/03/18 14:20 66 12 171/80 97 Simple Mask 6 10/03/18 14:11 60 16 164/77 97 Simple Mask 6 10/03/18 14:06 60 16 133/70 97 Simple Mask 6 10/03/18 14:01 97.5 60 16 121/66 98 Simple Mask 6 10/03/18 13:58 60 16 98 10/03/18 12:00 97.4 60 18 114/79 (91) 98 10/03/18 11:39 54 Intake and Output 10/03/18 10/04/18 19:00 07:00 Intake Total 470 ml Output Total 260 ml 450 ml Balance 210 ml -450 ml Intake Oral 120 ml IV Total 350 ml Output Urine Total 250 ml 450 ml Estimated Blood Loss 10 ml Laboratory Tests Test 10/04/18 06:02 White Blood Count 7.1 K/UL (4.8-10.8) Red Blood Count 4.89 M/UL (4.70-6.10) Hemoglobin 11.0 G/DL (14.2-18.0) L Hematocrit 35.5 % (42.0-52.0) L Mean Corpuscular Volume 73 FL (80-99) L Mean Corpuscular Hemoglobin 22.6 PG (27.0-31.0) L Mean Corpuscular Hemoglobin Concent 31.1 G/DL (32.0-36.0) L Red Cell Distribution Width 13.9 % (11.6-14.8) Platelet Count 198 K/UL (150-450) Mean Platelet Volume 5.5 FL (6.5-10.1) L Neutrophils (%) (Auto) 58.6 % (45.0-75.0) Lymphocytes (%) (Auto) 21.9 % (20.0-45.0) Monocytes (%) (Auto) 6.4 % (1.0-10.0) Eosinophils (%) (Auto) 12.3 % (0.0-3.0) H Basophils (%) (Auto) 0.9 % (0.0-2.0) Sodium Level 140 MMOL/L (136-145) Potassium Level 4.0 MMOL/L (3.5-5.1) Chloride Level 106 MMOL/L (98-107) Carbon Dioxide Level 22 MMOL/L (21-32) Anion Gap 12 mmol/L (5-15) Blood Urea Nitrogen 23 mg/dL (7-18) H Creatinine 1.2 MG/DL (0.55-1.30) Estimat Glomerular Filtration Rate mL/min (>60) Glucose Level 84 MG/DL (74-106) Calcium Level 8.5 MG/DL (8.5-10.1) Objective HEAD AND NECK: No JVD or carotid bruit. LUNGS: Clear. CARDIOVASCULAR: Dinh S1 and S2. Pacer implant Left subclavian no hematoma ABDOMEN: Soft. Status post suprapubic catheter. EXTREMITIES: No pitting edema. Cameron Cox MD Oct 04, 2018 10:04
[2018-10-04 12:00] VITALS: BP 131/66
--- NOTE | 2018-10-04 12:36 | NUR ---
DISCHARGE PLANNING DISCHARGE PLANNING ORDER NOTED CLINICALS FAXED TO [facility] T: [phone] F:[phone] AWAIT ACCEPTANCE AND ROOM NUMBER
--- NOTE | 2018-10-04 13:30 | Infectious Diseases Prog Note ---
Assessment/Plan Problems: (1) Catheter-associated urinary tract infection Assessment & Plan: with E coli , and MDR proteus mirabilis , continue ertapenem for 10 days total . was seen by urology for urine leak, and had his suprapubic catheter changed . recommend to keep suprapubic catheter site clean and dry , please change catheter as needed (2) Bacteremia Assessment & Plan: with coag negative staph, grew from one set, most likely contaminant , monitor off antibiotics (3) Encephalopathy acute Assessment & Plan: improving , suspect due to the above , continue hydration and wide spectrum antibiotics pending cultures (4) Suprapubic catheter dysfunction Assessment & Plan: leaking urine around it, had urology eval and his catheter was changed (5) ARF (acute renal failure) Assessment & Plan: due to the above, continue hydration and renally dosed meds , avoid nephrotoxics Subjective Constitutional: Reports: no symptoms HEENT: Reports: no symptoms Respiratory: Reports: no symptoms Breasts: Reports: no symptoms Cardiovascular: Reports: no symptoms Gastrointestinal/Abdominal: Reports: no symptoms Genitourinary: Reports: no symptoms Neurologic: Reports: no symptoms Psychiatric: Reports: no symptoms Skin: Reports: no symptoms Endocrine: Reports: no symptoms Hematologic: Reports: no symptoms Musculoskeletal: Reports: no symptoms Allergies: Coded Allergies: No Known Allergies (Unverified , 11/26/14) Subjective he was more awake and coherent , responds well to verbal commands , still in restrains , afebrile, has minimal urine leaking around the suprapubic catheter Objective Vital Signs Last 24 Hour Vital Signs Date Time Temp Pulse Resp B/P (MAP) Pulse Ox O2 Delivery O2 Flow Rate FiO2 10/04/18 09:00 Nasal Cannula 3.0 10/04/18 08:39 64 158/75 10/04/18 08:00 98.0 64 18 158/75 (102) 98 10/04/18 08:00 64 10/04/18 04:00 60 10/04/18 03:57 97.5 61 20 152/75 (100) 99 10/04/18 02:13 61 158/71 (100) 10/04/18 01:11 61 161/72 (101) 10/04/18 00:00 69 10/04/18 00:00 98.1 61 20 166/74 (104) 94 10/03/18 22:01 70 102/82 (89) 99 10/03/18 21:00 Nasal Cannula 3.0 10/03/18 20:00 98.4 70 18 175/84 (114) 97 10/03/18 20:00 60 10/03/18 17:30 96.4 69 18 170/80 (110) 97 10/03/18 16:30 96.3 63 18 175/81 (112) 97 10/03/18 15:39 60 10/03/18 15:35 97.1 61 18 160/80 (106) 98 10/03/18 14:45 97.8 60 15 162/76 97 Nasal Cannula 3 10/03/18 14:30 60 15 173/76 100 Nasal Cannula 3 10/03/18 14:20 66 12 171/80 97 Simple Mask 6 10/03/18 14:11 60 16 164/77 97 Simple Mask 6 10/03/18 14:06 60 16 133/70 97 Simple Mask 6 10/03/18 14:01 97.5 60 16 121/66 98 Simple Mask 6 10/03/18 13:58 60 16 98 Height (Feet): 5 Height (Inches): 5.00 Weight (Pounds): 143 General Appearance: WD/WN, no acute distress HEENT: normocephalic, atraumatic, anicteric, mucous membranes moist, PERRL Respiratory/Chest: chest wall non-tender, lungs clear, normal breath sounds, no respiratory distress, no accessory muscle use Cardiovascular: normal peripheral pulses, normal rate, regular rhythm, no gallop/murmur, no JVD Abdomen: normal bowel sounds, soft, non tender, no organomegaly, non distended , no mass, no scars Extremities: no cyanosis, no clubbing Skin: no rash, no lesions, no ulcers Neurologic/Psychiatric: no motor/sensory deficits, alert, oriented x 3, responsive Lymphatic: no neck adenopathy, no groin adenopathy Musculoskeletal: normal muscle bulk, no effusion Objective awake , responsive, NAD Laboratory Tests Test 10/04/18 06:02 White Blood Count 7.1 K/UL (4.8-10.8) Red Blood Count 4.89 M/UL (4.70-6.10) Hemoglobin 11.0 G/DL (14.2-18.0) L Hematocrit 35.5 % (42.0-52.0) L Mean Corpuscular Volume 73 FL (80-99) L Mean Corpuscular Hemoglobin 22.6 PG (27.0-31.0) L Mean Corpuscular Hemoglobin Concent 31.1 G/DL (32.0-36.0) L Red Cell Distribution Width 13.9 % (11.6-14.8) Platelet Count 198 K/UL (150-450) Mean Platelet Volume 5.5 FL (6.5-10.1) L Neutrophils (%) (Auto) 58.6 % (45.0-75.0) Lymphocytes (%) (Auto) 21.9 % (20.0-45.0) Monocytes (%) (Auto) 6.4 % (1.0-10.0) Eosinophils (%) (Auto) 12.3 % (0.0-3.0) H Basophils (%) (Auto) 0.9 % (0.0-2.0) Sodium Level 140 MMOL/L (136-145) Potassium Level 4.0 MMOL/L (3.5-5.1) Chloride Level 106 MMOL/L (98-107) Carbon Dioxide Level 22 MMOL/L (21-32) Anion Gap 12 mmol/L (5-15) Blood Urea Nitrogen 23 mg/dL (7-18) H Creatinine 1.2 MG/DL (0.55-1.30) Estimat Glomerular Filtration Rate mL/min (>60) Glucose Level 84 MG/DL (74-106) Calcium Level 8.5 MG/DL (8.5-10.1) Current Medications Medications (Trade) Dose Ordered Sig/Charlene Route PRN Reason Start Time Stop Time Status Last Admin Dose Admin Acetaminophen (Tylenol) 650 mg Q6H PRN ORAL FHMP 10/03/18 14:00 11/02/18 13:59 Acetaminophen/ Codeine Phosphate (Tylenol #3) 1 tab Q4H PRN ORAL Moderate Pain (Pain Scale 4-6) 10/03/18 14:00 10/10/18 13:59 Amlodipine Besylate (Norvasc) 5 mg DAILY ORAL 09/28/18 09:00 10/28/18 08:59 10/04/18 08:39 Aspirin (Ecotrin) 81 mg DAILY ORAL 09/28/18 09:00 10/28/18 08:59 10/04/18 08:39 Citalopram Hydrobromide (celeXA) 40 mg BEDTIME ORAL 09/27/18 21:00 10/27/18 20:59 10/03/18 22:07 Clopidogrel Bisulfate (Plavix) 75 mg DAILY ORAL 09/28/18 09:00 10/28/18 08:59 10/04/18 08:39 Dextrose (Dextrose 50%) 25 ml Q30M PRN IV Hypoglycemia 09/29/18 10:00 10/29/18 09:59 Dextrose (Dextrose 50%) 50 ml Q30M PRN IV Hypoglycemia 09/29/18 10:00 10/29/18 09:59 Ertapenem 1 gm/ Sodium Chloride 55 ml @ 110 mls/hr Q24H IVPB 10/01/18 18:00 10/11/18 17:59 10/03/18 17:28 Gentamicin Sulfate (Garamycin 0.3% Opt Sol) 1 drop BID BOTH EYES 09/29/18 18:00 10/06/18 17:59 10/04/18 08:39 Insulin Aspart (NovoLOG) BEFORE MEALS AND HS SUBQ 09/29/18 11:30 10/29/18 11:29 10/04/18 11:35 Lorazepam (Ativan 2mg/ml 1ml) 0.5 mg Q8H PRN IV For Anxiety 09/29/18 10:45 10/06/18 10:44 09/29/18 11:01 Metformin HCl (Glucophage) 500 mg TWICE A DAY ORAL 09/30/18 18:00 10/30/18 17:59 10/04/18 08:39 Morphine Sulfate (Morphine Sulfate) 2 mg Q1H PRN IVP Severe Pain (Pain Scale 7-10) 10/03/18 14:00 10/10/18 13:59 Olanzapine (ZyPREXA) 2.5 mg BEDTIME ORAL 09/27/18 21:00 10/28/18 08:59 10/03/18 22:07 Ondansetron HCl (Zofran) 4 mg Q6H PRN IVP Nausea & Vomiting 10/03/18 14:00 11/02/18 13:59 Oxybutynin Chloride (Ditropan) 2.5 mg BID ORAL 09/27/18 18:00 10/27/18 17:59 10/04/18 08:39 Sodium Chloride 1,000 ml @ 50 mls/hr Q20H IV 09/29/18 14:15 10/29/18 14:14 10/03/18 03:40 Frida Billings M.D. Oct 04, 2018 13:30
--- NOTE | 2018-10-04 14:57 | NUR ---
DISCHARGE PLANNED PATIENT WILL DISCHARGE TO [facility] ROOM [address] SKILLED T: [phone] FOR NURSE TO NURSE REPORT [facility] HAS BEEN ARRANGED FOR [address]9 HANDLER SPOKE WITH DAYLIN RIVAS, WHO IS IN AGREEMENT WITH DISCHARGE PLAN TRANSFER FORM COMPLETED
--- NOTE | 2018-10-04 16:06 | NUR ---
NURSE NOTES: Patient discharged to [facility] per Dr. Loving's order. All discharge instructions explained to patient, Patient alert/ Oriented x2. Called to [facility] and report given to RHYS Steiner. IV removed, Heart monitor removed and returned to quality assurance monitor body. Patient received all his belongings. Patient left the hospital in stable condition and with [facility].
--- NOTE | 2018-10-04 20:13 | Urology Progress Note ---
Assessment/Plan Status: stable Assessment/Plan: 1. 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 2. Possible neurogenic bladder. 3. BPH history. 4. Urethral stricture. 5. Hematuria. 6. Pyuria, probable UTI and colonization of the urine. 7. Proteinuria. 8. Chronic kidney disease. 9. History of small nephrolithiasis. 10. Renal cyst. 11. Renal atrophy. cont with abx as ordered, adjusted per ID new 24f SP tube placed 09/28 hand irrigate PRN monitor clinically consider renal imaging study ditropan 2.5 mg BID Subjective Allergies: Coded Allergies: No Known Allergies (Unverified , 11/26/14) Subjective all noted, pt seen earlier today Objective Last 24 Hour Vital Signs Date Time Temp Pulse Resp B/P (MAP) Pulse Ox O2 Delivery O2 Flow Rate FiO2 10/04/18 12:00 70 10/04/18 12:00 98.0 67 21 131/66 (87) 95 10/04/18 09:00 Nasal Cannula 3.0 10/04/18 08:39 64 158/75 10/04/18 08:00 98.0 64 18 158/75 (102) 98 10/04/18 08:00 64 10/04/18 04:00 60 10/04/18 03:57 97.5 61 20 152/75 (100) 99 10/04/18 02:13 61 158/71 (100) 10/04/18 01:11 61 161/72 (101) 10/04/18 00:00 69 10/04/18 00:00 98.1 61 20 166/74 (104) 94 10/03/18 22:01 70 102/82 (89) 99 10/03/18 21:00 Nasal Cannula 3.0 Intake and Output 10/03/18 10/04/18 18:59 06:59 Intake Total 470 ml Output Total 260 ml 450 ml Balance 210 ml -450 ml Intake Oral 120 ml IV Total 350 ml Output Urine Total 250 ml 450 ml Estimated Blood Loss 10 ml Microbiology Date/Time Source Procedure Growth Status 09/27/18 13:45 Blood Blood Culture - Final Staphylococcus Sp Coag Neg Complete 09/27/18 18:00 Urine,Suprapubic Urine Culture - Final Escherichia Coli Proteus Mirabilis Complete 09/27/18 16:00 Rectum - Final NO CARBAPENEM-RESISTANT ENTEROBACTERI... Complete Laboratory Tests 10/04/18 06:02: White Blood Count 7.1, Red Blood Count 4.89, Hemoglobin 11.0L, Hematocrit 35.5L , Mean Corpuscular Volume 73L, Mean Corpuscular Hemoglobin 22.6L, Mean Corpuscular Hemoglobin Concent 31.1L, Red Cell Distribution Width 13.9, Platelet Count 198, Mean Platelet Volume 5.5L, Neutrophils (%) (Auto) 58.6, Lymphocytes (%) (Auto) 21.9, Monocytes (%) (Auto) 6.4, Eosinophils (%) (Auto) 12.3H, Basophils (%) (Auto) 0.9, Sodium Level 140, Potassium Level 4.0, Chloride Level 106, Carbon Dioxide Level 22, Anion Gap 12, Blood Urea Nitrogen 23H, Creatinine 1.2, Estimat Glomerular Filtration Rate , Glucose Level 84, Calcium Level 8.5 Height (Feet): 5 Height (Inches): 5.00 Weight (Pounds): 143 Objective exam stable Camilo Arevalo MD Oct 04, 2018 20:13
--- NOTE | 2018-10-04 22:45 | Discharge Summary ---
DATE OF ADMISSION: 09/27/2018 DATE OF DISCHARGE: 10/04/2018 HOSPITAL COURSE: This is an 87-year-old male with history of hypertension, diabetes, and chronic indwelling catheter with a suprapubic catheter, who came in for frequent urinary tract infection. The patient has had multiple admissions for multi-drug resistant tract infection in the past. He was started on intravenous antibiotic by Infectious Disease originally with Unasyn and vancomycin followed up by switched to cefepime and then again switched to ertapenem by ID. The patient responded to the intravenous antibiotic and his encephalopathy improved after a few days of admission. The patient also had a complication of having bradycardia with second-degree heart block few days throughout the admission and Cardiology was consulted and it was decided to have a pacemaker placed for the patient due to heart rate as low as 26, in the 20s and 30s most few days in a row. The patient had a pacemaker placed by Dr. Cox and the patient will follow up as outpatient for pacemaker evaluation and a follow-up. The patient also while in the hospital was seen by the urologist, Dr. Arevalo and his suprapubic catheter was changed. FINAL DIAGNOSES: 1. Recurrent urinary tract infection with history of multi-drug resistance. 2. Encephalopathy secondary to urinary tract infection. 3. Sick sinus syndrome status post pacemaker placement. 4. Depression. 5. Chronic indwelling suprapubic catheter. 6. Dementia. 7. Diabetes mellitus type 2. 8. Hypertension. 9. Coronary artery disease. DISCHARGE MEDICATIONS: Include Invanz 1 g intravenous piggyback daily for 5 days, gentamicin 1 drop to both eyes x3 days, amlodipine 5 mg daily, aspirin 81 mg daily, Celexa 40 mg nightly, Plavix 75 mg daily, enalapril 20 mg daily, vitamin D3 50,000 units weekly , metformin 500 one twice a day, Zyprexa 2.5 mg daily, and oxybutynin 5 mg b.i.d. DISPOSITION: The patient will be discharged to [facility] for further physical therapy and intravenous antibiotic. We will follow the patient at the rehab. Suad Loving M.D. DR: GABBI JOB#: [id number] CC:
--- NOTE | 2018-10-05 14:17 | Cardiology Report ---
APPROVED REPORT EXAM: Two-dimensional and M-mode echocardiogram with Doppler and color Doppler. INDICATION Bradycardia M-Mode DIMENSIONS Left Atrium (MM)4.7 (1.6-4.0cm) Aortic Root3.4 (2.0-3.7cm) Aortic Cusp Exc.1.4 (1.5-2.0cm) Technically difficult and limited study due to poor acoustic windows. Patient was combative. Study quality precludes accurate assessment of regional wall motion. M-mode measurements of left ventricle not obtainable due to cardiac position (angle). Normal left ventricular chamber size, systolic function and wall motion to extent visualized. Left ventricular ejection fraction estimated to be grossly normal. Mild left ventricular hypertrophy. Anterior Echo-free space, c/w pericardial effusion without evidence of tamponade. Mild left atrial enlargement. Right cardiac chamber sizes appear to be within normal limits. Aortic valve calcification with decreased cusp excursion c/w aortic stenosis. Moderately thickened mitral valve leaflets reduced normal excursion. Heavy mitral annulus and aortic root calcification. Pulmonic valve not visualized. Normal tricuspid valve structure. Subcostal views not obtainable. A color flow and spectral Doppler study was performed and revealed: No aortic insufficiency. Peak aortic valve gradient of 16 mmHg and a mean of 7 mmHg. Aortic valve area 1.4 cm2 calculated by continuity equation. Trace mitral regurgitation. Mitral diastolic velocities suggest mild left ventricular diastolic dysfunction (Grade I). Trace tricuspid regurgitation. Tricuspid systolic velocities suggests peak right ventricular systolic pressure of 11 mmHg.
== END 2018-10-04 16:06 | DRG 981 ==
LOC: EDBD 13:19 → EMR 14:30 → 2E 14:36 → EDBEDREQ 14:57
PROC: 02HK3JZ Insertion of Pacemaker Lead into Right Ventricle, Percutaneous Approach (ICD-10-PCS; principal; 2018-10-03 12:30)
PROC: 02H63JZ Insertion of Pacemaker Lead into Right Atrium, Percutaneous Approach (ICD-10-PCS; principal; 2018-10-03 12:30)
PROC: 0JH606Z Insertion of Pacemaker, Dual Chamber into Chest Subcutaneous Tissue and Fascia, Open Approach (ICD-10-PCS; principal; 2018-10-03 12:30)
DX: T83.510A Infection and inflammatory reaction due to cystostomy catheter, initial encounter (principal); G93.41 Metabolic encephalopathy; N39.0 Urinary tract infection, site not specified; N17.9 Acute kidney failure, unspecified; T83.030A Leakage of cystostomy catheter, initial encounter; I49.5 Sick sinus syndrome; I44.1 Atrioventricular block, second degree; N40.1 Benign prostatic hyperplasia with lower urinary tract symptoms; N31.9 Neuromuscular dysfunction of bladder, unspecified; N35.919 Unspecified urethral stricture, male, unspecified site; E86.0 Dehydration; E11.9 Type 2 diabetes mellitus without complications; Z79.84 Long term (current) use of oral hypoglycemic drugs; F32.9 Major depressive disorder, single episode, unspecified; I25.10 Atherosclerotic heart disease of native coronary artery without angina pectoris; I13.10 Hypertensive heart and chronic kidney disease without heart failure, with stage 1 through stage 4 chronic kidney disease, or unspecified chronic kidney disease; N18.9 Chronic kidney disease, unspecified; Z79.02 Long term (current) use of antithrombotics/antiplatelets; R33.8 Other retention of urine; F03.90 Unspecified dementia, unspecified severity, without behavioral disturbance, psychotic disturbance, mood disturbance, and anxiety; Z87.440 Personal history of urinary (tract) infections
CPT/HCPCS: 36415; 71045; 76000; 80048; 80053; 81003; 82550; 82553; 82962; 83605; 83880; 84484; 85025; 87040; 87081; 87086; 87181; 93005; 93306; 96361; 96365; 96367; 99285; J1815; J2250

== ENCOUNTER 2018-11-01 12:37 | Inpatient (IN) | payer MEDICARE, MEDICAID ==
[~2018-11-01] VITALS: Ht 167.6 cm; Wt 72.6 kg
[~2018-11-01 12:37] MED LIST changes: +GARAMYCIN 0.3%1 DROP BOTH EYES; +INVANZ1 G1 IVPB; +OXYBUTYNIN CHLOR5 M1 ORAL
--- NOTE | 2018-11-01 12:40 | NUR ---
Note valerio in EDM - 11/01/18 at 1259 by [email or web address] ED Nurse Note: pt brought in to ER by ambulance from SNF due to general weakness. pt Farsi speaking aao x0 but awake and bedbound. skin clean and inta
--- NOTE | 2018-11-01 12:40 | NUR ---
ED Nurse Note: pt brought in to ER by ambulance from SNF due to general weakness. pt Farsi speaking aao x0 but awake and bedbound. skin clean and intact but pale. suprapubic catheter present. pt is in gown and on telemetry monitor. saturating at room air and vss as documented.
--- NOTE | 2018-11-01 12:54 | NUR ---
ED Nurse Note: x-ray at bedside.
[2018-11-01 12:55] VITALS: BP 132/60
--- NOTE | 2018-11-01 13:32 | Diagnostic Imaging Report ---
Indication: Dyspnea Comparison: 10/03/2018 A single view chest radiograph was obtained. Findings: There is mild left basal atelectasis suspected. Heart size is normal. Lung volumes are low bilaterally. Pacemaker again noted without change. Aorta is calcified. IMPRESSION: Mild left basal atelectasis. No significant change
[2018-11-01 13:39] LABS: BASOPHILS % (AUTO) 0.9 % (0.0-2.0); EOSINOPHILS % (AUTO) 4.5 % (0.0-3.0); HEMATOCRIT 34.1 % (42.0-52.0); HEMOGLOBIN 10.4 G/DL (14.2-18.0); LYMPHOCYTES % (AUTO) 21.2 % (20.0-45.0); MEAN CORPUSCULAR VOLUME 75 FL (80-99); MONOCYTES % (AUTO) 5.8 % (1.0-10.0); NEUTROPHILS % (AUTO) 67.6 % (45.0-75.0); PLATELET COUNT 223 K/UL (150-450); RED BLOOD COUNT 4.54 M/UL (4.70-6.10); RED CELL DISTRIBUTION WIDTH 13.2 % (11.6-14.8); WHITE BLOOD COUNT 10.2 K/UL (4.8-10.8)
[2018-11-01 13:50] LABS: ANION GAP 11 mmol/L (5-15); BLOOD UREA NITROGEN 29 mg/dL (7-18); CALCIUM 9.2 MG/DL (8.5-10.1); CARBON DIOXIDE 26 MMOL/L (21-32); CHLORIDE 104 MMOL/L (98-107); CREATININE 1.5 MG/DL (0.55-1.30); SODIUM 140 MMOL/L (136-145)
[2018-11-01 14:03] LABS: ALANINE AMINOTRANSFERASE 10 U/L (12-78); ALBUMIN 3.7 G/DL (3.4-5.0); ALBUMIN/GLOBULIN RATIO 1.5 (1.0-2.7); ALKALINE PHOSPHATASE 141 U/L (46-116); ASPARTATE AMINO TRANSFERASE 14 U/L (15-37); BILIRUBIN,TOTAL 0.6 MG/DL (0.2-1.0); CREATINE KINASE 49 U/L (26-308)
--- NOTE | 2018-11-01 14:13 | Emergency Room Report ---
History of Present Illness General Chief Complaint: Generalized Weakness Source: Medical Record, EMS Present Illness HPI [facility] He has multiple chronic illnesses to include diabetes, dementia, depression, hypertension. He presents to the emergency department for generalized weakness. Apparently he is not as active as he usually is. He has no specific complaints. Allergies: Coded Allergies: No Known Allergies (Unverified , 11/26/14) Patient History Past Medical History: see triage record, DM, HTN, dementia, psych hx Social History: Denies: smoking, alcohol use, drug use Reviewed Nursing Documentation: PMH: Agreed; PSxH: Agreed Nursing Documentation-PMH Past Medical History: No History, Except For Hx Cardiac Problems: Yes Hx Hypertension: Yes Hx Diabetes: Yes Hx Cancer: No Hx Gastrointestinal Problems: No Hx Neurological Problems: Yes Hx Transient Ischemic Attacks: Yes Hx Dementia: Yes Review of Systems All Other Systems: negative except mentioned in HPI Physical Exam Vital Signs Date Time Temp Pulse Resp B/P (MAP) Pulse Ox O2 Delivery O2 Flow Rate FiO2 11/01/18 12:39 98.6 57 18 132/60 (84) 96 Room Air Sp02 EP Interpretation: reviewed, normal General Appearance: no apparent distress, alert, GCS 15, non-toxic Head: normocephalic, atraumatic Eyes: bilateral eye normal inspection, bilateral eye PERRL ENT: hearing grossly normal, normal pharynx, no angioedema, normal voice Neck: full range of motion, supple/symm/no masses Respiratory: chest non-tender, lungs clear, normal breath sounds, no respiratory distress, no retraction, no accessory muscle use, speaking full sentences Cardiovascular #1: regular rate, rhythm, no edema Gastrointestinal: normal bowel sounds, non tender, soft, non-distended, no guarding, no rebound Rectal: deferred Musculoskeletal: normal inspection, back normal, normal range of motion Neurologic: alert, responsive, motor strength/tone normal, sensory intact Psychiatric: no suicidal/homicidal ideation Skin: other - See RN skin exam. Medical Decision Making Diagnostic Impression: Primary Impression: ARF (acute renal failure) Additional Impressions: Anemia Lactic acid acidosis ER Course This patient presents with new generalized weakness. Patient also has possible urinary tract infection and acute kidney injury. He is anemic and I am sure unsure of the etiology of this. He also has a lactic acidosis. The patient is chronically ill and will need further monitoring and further evaluation as an inpatient. Further care per the inpatient team. The patient was given IV fluids of broad-spectrum antibiotics and admitted for further evaluation and treatment. Laboratory Tests Test 11/01/18 13:15 11/01/18 14:00 11/01/18 14:20 White Blood Count 10.2 K/UL (4.8-10.8) Red Blood Count 4.54 M/UL (4.70-6.10) L Hemoglobin 10.4 G/DL (14.2-18.0) L Hematocrit 34.1 % (42.0-52.0) L Mean Corpuscular Volume 75 FL (80-99) L Mean Corpuscular Hemoglobin 22.9 PG (27.0-31.0) L Mean Corpuscular Hemoglobin Concent 30.5 G/DL (32.0-36.0) L Red Cell Distribution Width 13.2 % (11.6-14.8) Platelet Count 223 K/UL (150-450) Mean Platelet Volume 6.0 FL (6.5-10.1) L Neutrophils (%) (Auto) 67.6 % (45.0-75.0) Lymphocytes (%) (Auto) 21.2 % (20.0-45.0) Monocytes (%) (Auto) 5.8 % (1.0-10.0) Eosinophils (%) (Auto) 4.5 % (0.0-3.0) H Basophils (%) (Auto) 0.9 % (0.0-2.0) Sodium Level 140 MMOL/L (136-145) Potassium Level 5.0 MMOL/L (3.5-5.1) Chloride Level 104 MMOL/L (98-107) Carbon Dioxide Level 26 MMOL/L (21-32) Anion Gap 11 mmol/L (5-15) Blood Urea Nitrogen 29 mg/dL (7-18) H Creatinine 1.5 MG/DL (0.55-1.30) H Estimate Glomerular Filtration Rate mL/min (>60) Glucose Level 145 MG/DL (74-106) H Lactic Acid Level 3.90 mmol/L (0.4-2.0) H 3.30 mmol/L (0.66-2.22) H Calcium Level 9.2 MG/DL (8.5-10.1) Total Bilirubin 0.6 MG/DL (0.2-1.0) Aspartate Amino Transferase (AST) 14 U/L (15-37) L Alanine Aminotransferase (ALT) 10 U/L (12-78) L Alkaline Phosphatase 141 U/L (46-116) H Total Creatine Kinase 49 U/L (26-308) Creatine Kinase MB 1.0 NG/ML (0.0-3.6) Creatine Kinase MB Relative Index 2.0 Troponin I 0.000 ng/mL (0.000-0.056) Total Protein 6.2 G/DL (6.4-8.2) L Albumin 3.7 G/DL (3.4-5.0) Globulin 2.5 g/dL Albumin/Globulin Ratio 1.5 (1.0-2.7) Urine Color Yellow Urine Appearance Cloudy Urine pH 8 (4.5-8.0) Urine Specific [place] 1.015 (1.005-1.035) Urine Protein 3+ (NEGATIVE) H Urine Glucose (UA) Negative (NEGATIVE) Urine Ketones Negative (NEGATIVE) Urine Blood 4+ (NEGATIVE) H Urine Nitrite Negative (NEGATIVE) Urine Bilirubin Negative (NEGATIVE) Urine Urobilinogen Normal MG/DL (0.0-1.0) Urine Leukocyte Esterase 3+ (NEGATIVE) H Urine RBC 5-10 /HPF (0 - 0) H Urine WBC 5-10 /HPF (0 - 0) H Urine Squamous Epithelial Cells Moderate /LPF (NONE/OCC) H Urine Triple Phosphate Crystals Many /LPF (NONE) H Urine Amorphous Sediment Many /LPF (NONE) H Urine Bacteria Few /HPF (NONE) Laboratory Tests Test 11/01/18 13:15 11/01/18 14:00 White Blood Count 10.2 K/UL (4.8-10.8) Red Blood Count 4.54 M/UL (4.70-6.10) L Hemoglobin 10.4 G/DL (14.2-18.0) L Hematocrit 34.1 % (42.0-52.0) L Mean Corpuscular Volume 75 FL (80-99) L Mean Corpuscular Hemoglobin 22.9 PG (27.0-31.0) L Mean Corpuscular Hemoglobin Concent 30.5 G/DL (32.0-36.0) L Red Cell Distribution Width 13.2 % (11.6-14.8) Platelet Count 223 K/UL (150-450) Mean Platelet Volume 6.0 FL (6.5-10.1) L Neutrophils (%) (Auto) 67.6 % (45.0-75.0) Lymphocytes (%) (Auto) 21.2 % (20.0-45.0) Monocytes (%) (Auto) 5.8 % (1.0-10.0) Eosinophils (%) (Auto) 4.5 % (0.0-3.0) H Basophils (%) (Auto) 0.9 % (0.0-2.0) Sodium Level 140 MMOL/L (136-145) Potassium Level 5.0 MMOL/L (3.5-5.1) Chloride Level 104 MMOL/L (98-107) Carbon Dioxide Level 26 MMOL/L (21-32) Anion Gap 11 mmol/L (5-15) Blood Urea Nitrogen 29 mg/dL (7-18) H Creatinine 1.5 MG/DL (0.55-1.30) H Estimate Glomerular Filtration Rate mL/min (>60) Glucose Level 145 MG/DL (74-106) H Lactic Acid Level 3.90 mmol/L (0.4-2.0) H Calcium Level 9.2 MG/DL (8.5-10.1) Total Bilirubin 0.6 MG/DL (0.2-1.0) Aspartate Amino Transferase (AST) 14 U/L (15-37) L Alanine Aminotransferase (ALT) 10 U/L (12-78) L Alkaline Phosphatase 141 U/L (46-116) H Total Creatine Kinase 49 U/L (26-308) Creatine Kinase MB 1.0 NG/ML (0.0-3.6) Creatine Kinase MB Relative Index 2.0 Troponin I 0.000 ng/mL (0.000-0.056) Total Protein 6.2 G/DL (6.4-8.2) L Albumin 3.7 G/DL (3.4-5.0) Globulin 2.5 g/dL Albumin/Globulin Ratio 1.5 (1.0-2.7) Urine Color Pending Urine Appearance Pending Urine pH Pending Urine Specific [place] Pending Urine Protein Pending Urine Glucose (UA) Pending Urine Ketones Pending Urine Blood Pending Urine Nitrite Pending Urine Bilirubin Pending Urine Urobilinogen Pending Urine Leukocyte Esterase Pending EKG Diagnostic Results Rate: normal Rhythm: NSR ST Segments: no acute changes Other Impression LBBB Rhythm Strip Diag. Results EP Interpretation: yes Rate: 60's Rhythm: NSR, no PVC's, no ectopy Chest X-Ray Diagnostic Results Chest X-Ray Diagnostic Results : Chest X-Ray Ordered: Yes # of Views/Limited/Complete: 1 View Indication: Other EP Interpretation: Yes Interpretation: no consolidation, no effusion, no pneumothorax, no acute cardiopulmonary disease Impression: No acute disease Electronically Signed by: Ailyn Rose DO Last Vital Signs Date Time Temp Pulse Resp B/P (MAP) Pulse Ox O2 Delivery O2 Flow Rate FiO2 11/01/18 12:55 98.6 87 18 132/60 98 Room Air Disposition: ADMITTED INPATIENT Condition: Stable Referrals: Suad Loving MD (PCP) Ailyn Rose DO Nov 01, 2018 14:13
[2018-11-01 14:17] LABS: APPEARANCE,URINE CLOUDY; BILIRUBIN, URINE NEGATIVE (NEGATIVE); GLUCOSE, URINE (UA) NEGATIVE (NEGATIVE); KETONES,URINE NEGATIVE (NEGATIVE); LEUKOCYTE ESTERASE ,URINE 3+ (NEGATIVE); NITRITE,URINE NEGATIVE (NEGATIVE); PH,URINE 8 (4.5-8.0); PROTEIN,URINE 3+ (NEGATIVE); UROBILINOGEN,URINE NORMAL MG/DL (0.0-1.0)
[2018-11-01 14:19] LABS: COLOR,URINE YELLOW
[2018-11-01 15:00] VITALS: BP 127/76
[2018-11-01] MEDS ORDERED: cefTRIAXone 1 GM in NS 55 ML IVPB ONE (15:00)
--- NOTE | 2018-11-01 16:25 | NUR ---
ED Nurse Note: CHANGED LINEN AND REMOVED OLD SOILED DIAPERS. CLEANSED PT AND PATTED DRY.
--- NOTE | 2018-11-01 16:32 | NUR ---
ED Nurse Note: REPORT GIVEN TO NATALY JOINER OF MED SURG UNIT.
--- NOTE | 2018-11-01 16:46 | NUR ---
NURSE NOTES: RN received pt in stable condition from [facility] Blake in the ED. No acute distress or SOB. Pt confused, unable to provide hx. Pt's vitals stable on arrival to unit - BP 130/70, TX 67, Temp 98. Pt skin intact; discoloration in sacral area, redness on heels - covered with Optifoam. Pt arrived on unit with Suprapubic catheter. Date of insertion unknown. Catheter leaking. consult for urology ordered to change. Consult for ID ordered for UTI. Invanze and NS ordered on arrival to unit. Will administer. Belongings accounted for / sheet in chart. Will continue plan of care.
--- NOTE | 2018-11-01 17:12 | General Progress Note ---
Assessment/Plan Assessment/Plan: 1. UTI - start Invanz 1 gm IV daily. Follow Up urine C&S. 2. Leaky suprapubic cath - will call Urology to change suprapubic cath. 3. Generalized Weakness - will have PT and OT eval and Txt. 4. SSS s/p pacemaker placement 5. DM II - starting SSI and hold metformin. 6. HTN - amlodipine 5 mg one po daily and enalapril 20 mg daily. 7. Depression - cont celexa 40 mg one po qhs. Subjective Date patient seen: Nov 01, 2018 Time patient seen: 17:00 Constitutional: Reports: weakness Allergies: Coded Allergies: No Known Allergies (Unverified , 11/26/14) Subjective Full H&P dictated. Objective Last 24 Hour Vital Signs Date Time Temp Pulse Resp B/P (MAP) Pulse Ox O2 Delivery O2 Flow Rate FiO2 11/01/18 16:32 98.6 75 19 134/85 100 Room Air 11/01/18 15:00 98.3 89 15 127/76 99 Room Air 11/01/18 12:55 98.6 87 18 132/60 98 Room Air 11/01/18 12:55 61 18 Room Air 11/01/18 12:39 98.6 57 18 132/60 (84) 96 Room Air Laboratory Tests 11/01/18 13:15: White Blood Count 10.2, Red Blood Count 4.54L, Hemoglobin 10.4L, Hematocrit 34.1L, Mean Corpuscular Volume 75L, Mean Corpuscular Hemoglobin 22.9L, Mean Corpuscular Hemoglobin Concent 30.5L, Red Cell Distribution Width 13.2, Platelet Count 223, Mean Platelet Volume 6.0L, Neutrophils (%) (Auto) 67.6, Lymphocytes (%) (Auto) 21.2, Monocytes (%) (Auto) 5.8, Eosinophils (%) (Auto) 4.5H, Basophils (%) (Auto) 0.9, Sodium Level 140, Potassium Level 5.0, Chloride Level 104, Carbon Dioxide Level 26, Anion Gap 11, Blood Urea Nitrogen 29H, Creatinine 1.5H, Estimat Glomerular Filtration Rate , Glucose Level 145H, Lactic Acid Level 3.90H, Calcium Level 9.2, Total Bilirubin 0.6, Aspartate Amino Transf (AST/SGOT) 14L, Alanine Aminotransferase (ALT/SGPT) 10L, Alkaline Phosphatase 141H, Total Creatine Kinase 49, Creatine Kinase MB 1.0, Creatine Kinase MB Relative Index 2.0, Troponin I 0.000, Total Protein 6.2L, Albumin 3.7 , Globulin 2.5, Albumin/Globulin Ratio 1.5 11/01/18 14:00: Urine Color Yellow, Urine Appearance Cloudy, Urine pH 8, Urine Specific [place] 1.015, Urine Protein 3+H, Urine Glucose (UA) Negative, Urine Ketones Negative, Urine Blood 4+H, Urine Nitrite Negative, Urine Bilirubin Negative, Urine Urobilinogen Normal, Urine Leukocyte Esterase 3+H, Urine RBC 5-10H, Urine WBC 5- 10H, Urine Squamous Epithelial Cells ModerateH, Urine Triple Phosphate Crystals ManyH, Urine Amorphous Sediment ManyH, Urine Bacteria Few 11/01/18 14:20: Lactic Acid Level 3.30H Height (Feet): 5 Height (Inches): 6.00 Weight (Pounds): 160 Suad Loving MD Nov 01, 2018 17:12
[2018-11-01] MEDS: Oxybutynin 5mg tab ORAL SCH (18:27)
--- NOTE | 2018-11-01 19:13 | NUR ---
HAND-OFF: Report given to RHYS Rodarte.
--- NOTE | 2018-11-01 19:30 | NUR ---
NURSE NOTES: Received patient in bed, restless, agitated, combative at times, Farsi speaking only, urine culture sent to the lab per MD order. Suprapubic catheter in place but leaking urine, MD consult is obtained for follow up and replacement. Call light is within reach, bed is locked and alarm is on. Will continue to monitor for safety and comfort.
--- NOTE | 2018-11-01 19:45 | History and Physical Report ---
DATE OF ADMISSION: 11/01/2018 CHIEF COMPLAINT: Generalized weakness and leaking suprapubic catheter. HISTORY OF PRESENT ILLNESS: This is an 87-year-old male with history of hypertension, diabetes, and chronic indwelling catheter with a suprapubic catheter and a history of recurrent urinary tract infection who was brought into emergency room at [facility] for complaint of generalized weakness. The patient came from [facility] where he resides. He has been weak in the past few days according to the assisted living and his urinary catheter has been leaking for a few days now. No fever or chills. No history of abdominal pain, nausea, vomiting, or diarrhea. The patient was previously in the hospital last month for urinary tract infection and pacemaker placement. PAST MEDICAL HISTORY: History of hypertension, diabetes, coronary artery disease, depression, dementia, osteoarthritis, sick sinus syndrome status post pacemaker placement, and history of suprapubic catheterization with recurrent urinary tract infection. PAST SURGICAL HISTORY: Includes a history of indwelling catheter placement. ALLERGIES: No known drug allergies. SOCIAL HISTORY: The patient resides at the [facility]. No history of alcohol or drug use and no history of smoking. FAMILY HISTORY: Noncontributory REVIEW OF SYSTEMS: Negative except for history of present illness. PHYSICAL EXAMINATION: VITAL SIGNS: Include temperature is 98.6, pulse 57, respirations 18, blood pressure 132/60, pulse oximetry 96% on room air. GENERAL APPEARANCE: Alert and oriented x1. HEENT: Normocephalic and normochromic. Extraocular muscles intact. Throat is clear. NECK: Supple. No lymphadenopathy CARDIOVASCULAR: Regular rate and rhythm. No murmur. No gallop. LUNGS: Clear to auscultation bilaterally. No wheezing. No rales or rhonchi. ABDOMEN: Soft, nontender, and nondistended. Positive bowel sounds. EXTREMITIES: No edema, cyanosis, or clubbing. NEUROLOGIC: Respond to commands. LABORATORY AND DIAGNOSTIC DATA: Include WBC 10.2, hemoglobin 10.4, hematocrit 31.1, platelet count 223, neutrophils 67, lymphocytes 21, monos 5.8, eosinophil 4.5. Sodium 140, potassium 5, chloride 104, carbon dioxide 26, BUN 29, creatinine 1.9, glucose 145. Lactic acid at 3.9, followed by 3.3. Calcium 9.2, AST 14, ALT 10, alkaline phosphatase 141. Total creatine kinase is 49. Troponin 0. Albumin 3.7. UA showed +3 urine protein, +4 blood, +3 leukocyte esterase, urine rbc's 5 to 10, and urine wbc's 5 to 10, few bacteria. Chest x-ray showed mild left basilar atelectasis, but no significant changes. IMPRESSION: 1. Urinary tract infection. Start Invanz 1 g IV daily. Follow up on urine cultures. 2. Leaking suprapubic catheter. We will have Urology change the catheter. 3. Generalized weakness. Will have PT/OT evaluation and treatment. 4. Sick sinus syndrome status post pacemaker placement on last admission. 5. Diabetes. We will start the patient on sliding scale and hold metformin. 6. Hypertension. We will continue amlodipine 5 mg and enalapril 20 mg daily. 7. Depression. We will continue Celexa 40 mg daily. 8. History of coronary artery disease, restart the patient on aspirin. Suad Loving M.D. DR: Farhan JOB#: [id number] CC: EMILY
--- NOTE | 2018-11-01 19:56 | Infectious Diseases Prog Note ---
Assessment/Plan Problems: (1) Catheter-associated urinary tract infection Assessment & Plan: continue ertapenem, add vancomycin empirically, send urine culture (2) Altered level of consciousness Assessment & Plan: possible due to CAUTI, continue wide spectrum antibiotics pending cultures (3) ARF (acute renal failure) Assessment & Plan: suspect dehydration, continue IVF with close monitor of renal function, and renally dosed antibiotics (4) Suprapubic catheter dysfunction Assessment & Plan: with urine leaking , recommend changing catheter and urology eval Subjective Allergies: Coded Allergies: No Known Allergies (Unverified , 11/26/14) Objective Vital Signs Last 24 Hour Vital Signs Date Time Temp Pulse Resp B/P (MAP) Pulse Ox O2 Delivery O2 Flow Rate FiO2 11/01/18 16:59 Room Air 11/01/18 16:32 98.6 75 19 134/85 100 Room Air 11/01/18 15:00 98.3 89 15 127/76 99 Room Air 11/01/18 12:55 98.6 87 18 132/60 98 Room Air 11/01/18 12:55 61 18 Room Air 11/01/18 12:39 98.6 57 18 132/60 (84) 96 Room Air Height (Feet): 5 Height (Inches): 6.00 Weight (Pounds): 160 Laboratory Tests Test 11/01/18 13:15 11/01/18 14:00 11/01/18 14:20 White Blood Count 10.2 K/UL (4.8-10.8) Red Blood Count 4.54 M/UL (4.70-6.10) L Hemoglobin 10.4 G/DL (14.2-18.0) L Hematocrit 34.1 % (42.0-52.0) L Mean Corpuscular Volume 75 FL (80-99) L Mean Corpuscular Hemoglobin 22.9 PG (27.0-31.0) L Mean Corpuscular Hemoglobin Concent 30.5 G/DL (32.0-36.0) L Red Cell Distribution Width 13.2 % (11.6-14.8) Platelet Count 223 K/UL (150-450) Mean Platelet Volume 6.0 FL (6.5-10.1) L Neutrophils (%) (Auto) 67.6 % (45.0-75.0) Lymphocytes (%) (Auto) 21.2 % (20.0-45.0) Monocytes (%) (Auto) 5.8 % (1.0-10.0) Eosinophils (%) (Auto) 4.5 % (0.0-3.0) H Basophils (%) (Auto) 0.9 % (0.0-2.0) Sodium Level 140 MMOL/L (136-145) Potassium Level 5.0 MMOL/L (3.5-5.1) Chloride Level 104 MMOL/L (98-107) Carbon Dioxide Level 26 MMOL/L (21-32) Anion Gap 11 mmol/L (5-15) Blood Urea Nitrogen 29 mg/dL (7-18) H Creatinine 1.5 MG/DL (0.55-1.30) H Estimat Glomerular Filtration Rate mL/min (>60) Glucose Level 145 MG/DL (74-106) H Lactic Acid Level 3.90 mmol/L (0.4-2.0) H 3.30 mmol/L (0.66-2.22) H Calcium Level 9.2 MG/DL (8.5-10.1) Total Bilirubin 0.6 MG/DL (0.2-1.0) Aspartate Amino Transf (AST/SGOT) 14 U/L (15-37) L Alanine Aminotransferase (ALT/SGPT) 10 U/L (12-78) L Alkaline Phosphatase 141 U/L (46-116) H Total Creatine Kinase 49 U/L (26-308) Creatine Kinase MB 1.0 NG/ML (0.0-3.6) Creatine Kinase MB Relative Index 2.0 Troponin I 0.000 ng/mL (0.000-0.056) Total Protein 6.2 G/DL (6.4-8.2) L Albumin 3.7 G/DL (3.4-5.0) Globulin 2.5 g/dL Albumin/Globulin Ratio 1.5 (1.0-2.7) Urine Color Yellow Urine Appearance Cloudy Urine pH 8 (4.5-8.0) Urine Specific [place] 1.015 (1.005-1.035) Urine Protein 3+ (NEGATIVE) H Urine Glucose (UA) Negative (NEGATIVE) Urine Ketones Negative (NEGATIVE) Urine Blood 4+ (NEGATIVE) H Urine Nitrite Negative (NEGATIVE) Urine Bilirubin Negative (NEGATIVE) Urine Urobilinogen Normal MG/DL (0.0-1.0) Urine Leukocyte Esterase 3+ (NEGATIVE) H Urine RBC 5-10 /HPF (0 - 0) H Urine WBC 5-10 /HPF (0 - 0) H Urine Squamous Epithelial Cells Moderate /LPF (NONE/OCC) H Urine Triple Phosphate Crystals Many /LPF (NONE) H Urine Amorphous Sediment Many /LPF (NONE) H Urine Bacteria Few /HPF (NONE) Current Medications Medications (Trade) Dose Ordered Sig/Charlene Route PRN Reason Start Time Stop Time Status Last Admin Dose Admin Amlodipine Besylate (Norvasc) 5 mg DAILY ORAL 11/02/18 09:00 12/02/18 08:59 Aspirin (ASA) 81 mg DAILY ORAL 11/02/18 09:00 12/02/18 08:59 Citalopram Hydrobromide (celeXA) 40 mg BEDTIME ORAL 11/01/18 21:00 12/01/18 20:59 Dextrose (Dextrose 50%) 25 ml Q30M PRN IV Hypoglycemia 11/01/18 17:30 12/01/18 17:29 Dextrose (Dextrose 50%) 50 ml Q30M PRN IV Hypoglycemia 11/01/18 17:30 12/01/18 17:29 Enalapril Maleate (Vasotec) 20 mg DAILY ORAL 11/02/18 09:00 12/02/18 08:59 Ertapenem 1 gm/ Sodium Chloride 55 ml @ 110 mls/hr Q24H IVPB 11/01/18 20:00 11/02/18 19:59 Heparin Sodium (Porcine) (Heparin 5000 units/ml) 5,000 units EVERY 12 HOURS SUBQ 11/01/18 21:00 12/01/18 20:59 Insulin Aspart (NovoLOG) BEFORE MEALS AND HS SUBQ 11/01/18 21:00 12/01/18 20:59 Multivitamins Therapeutic (Therapeutic Multivitamin) 1 ea DAILY ORAL 11/02/18 09:00 12/02/18 08:59 Oxybutynin Chloride (Ditropan) 2.5 mg TWICE A DAY ORAL 11/01/18 18:00 12/01/18 17:59 11/01/18 18:27 Sodium Chloride 1,000 ml @ 50 mls/hr Q20H IV 11/01/18 17:48 12/01/18 17:47 11/01/18 17:48 Frida Billings M.D. Nov 01, 2018 19:56
[2018-11-01 20:00] VITALS: BP 168/79
[2018-11-01] MEDS ORDERED: Ertapenem 1 GM in NS 55 ML IVPB SCH (20:00)
[2018-11-01] MEDS: Citalopram Hydrobromide 10mg Tab ORAL SCH (20:17)
[2018-11-01] MEDS: Heparin 5000 units/ml inj SUBQ SCH (20:18)
[2018-11-01] MEDS: NovoLOG Insulin Flexpen SUBQ SCH (20:43)
[2018-11-01] MEDS ORDERED: Heparin 1000 units/ml 1ml Vial INJ SCH (21:00)
[2018-11-01] MEDS ORDERED: Vancomycin 1.25gm Premix IVPB SCH (22:00)
[2018-11-02 04:00] VITALS: BP 133/66
[2018-11-02] MEDS: NovoLOG Insulin Flexpen SUBQ SCH ×4 (06:13→21:44)
--- NOTE | 2018-11-02 07:14 | NUR ---
HAND-OFF: Report given to Jamilah JOINER.
--- NOTE | 2018-11-02 07:39 | NUR ---
NURSE NOTES: Patient awake, confused; on room air, no sing of distress and shortness of breath; no sign of chest pain; IV Right AC NS 50cc running; side rails up x2, breaks engaged, bed at lowest position, bed alarm on; will check blood as scheduled; call light within reach; will keep monitoring.
[2018-11-02 08:00] VITALS: BP 105/68
[2018-11-02 08:44] LABS: BASOPHILS % (AUTO) 0.8 % (0.0-2.0); EOSINOPHILS % (AUTO) 1.8 % (0.0-3.0); HEMATOCRIT 31.4 % (42.0-52.0); HEMOGLOBIN 9.7 G/DL (14.2-18.0); LYMPHOCYTES % (AUTO) 9.8 % (20.0-45.0); MEAN CORPUSCULAR VOLUME 75 FL (80-99); MONOCYTES % (AUTO) 3.8 % (1.0-10.0); NEUTROPHILS % (AUTO) 83.9 % (45.0-75.0); PLATELET COUNT 202 K/UL (150-450); RED BLOOD COUNT 4.21 M/UL (4.70-6.10); RED CELL DISTRIBUTION WIDTH 13.6 % (11.6-14.8); WHITE BLOOD COUNT 8.7 K/UL (4.8-10.8)
[2018-11-02] MEDS ORDERED: Heparin 1000 units/ml 1ml Vial INJ SCH (09:00)
[2018-11-02 09:05] LABS: ANION GAP 13 mmol/L (5-15); BLOOD UREA NITROGEN 23 mg/dL (7-18); CALCIUM 8.7 MG/DL (8.5-10.1); CARBON DIOXIDE 24 MMOL/L (21-32); CHLORIDE 106 MMOL/L (98-107); CREATININE 1.4 MG/DL (0.55-1.30); POTASSIUM 4.2 MMOL/L (3.5-5.1); SODIUM 143 MMOL/L (136-145)
[2018-11-02] MEDS: Oxybutynin 5mg tab ORAL SCH ×2 (09:12→17:42)
[2018-11-02] MEDS: Multivitamin w/Minerals tab ORAL SCH (09:12)
[2018-11-02] MEDS: Aspirin Baby 81mg ORAL SCH (09:12)
[2018-11-02] MEDS: Heparin 5000 units/ml inj SUBQ SCH ×2 (09:13→20:53)
[2018-11-02 12:00] VITALS: BP 103/78
--- NOTE | 2018-11-02 14:52 | NUR ---
CHARGE NURSE NOTE: Spoke with Dr. Loving, reminded him that urologist did not show up yet to fix leaking suprapubic catheter. Dr. Loving asked to be a consult, but he is out of town. will call (urologist) to fix the suprapubic cath.
[2018-11-02] MEDS ORDERED: Vancomycin 750mg/NS 275ml IVPB SCH ×2 (15:00)
--- NOTE | 2018-11-02 15:14 | Infectious Diseases Prog Note ---
Assessment/Plan Problems: (1) Catheter-associated urinary tract infection Assessment & Plan: continue ertapenem, and vancomycin empirically pending urine culture (2) Altered level of consciousness Assessment & Plan: possible due to CAUTI, continue wide spectrum antibiotics pending cultures (3) ARF (acute renal failure) Assessment & Plan: suspect dehydration, continue IVF with close monitor of renal function, and renally dosed antibiotics (4) Suprapubic catheter dysfunction Assessment & Plan: with urine leaking , recommend changing catheter and urology eval Subjective ROS Limited/Unobtainable: Yes Allergies: Coded Allergies: No Known Allergies (Unverified , 11/26/14) Subjective He was more awake , but still lethargic , nonverbal, afebrile, no cough or SOB, still has urine leaking around the suprapubic catheter Objective Vital Signs Last 24 Hour Vital Signs Date Time Temp Pulse Resp B/P (MAP) Pulse Ox O2 Delivery O2 Flow Rate FiO2 11/02/18 12:00 98.7 76 20 103/78 (86) 95 11/02/18 09:12 105/68 11/02/18 09:12 77 105/68 11/02/18 09:00 Room Air 11/02/18 08:00 97.7 77 18 105/68 (80) 95 11/02/18 04:00 98.7 61 18 133/66 (88) 11/01/18 21:00 Room Air 11/01/18 20:00 97.9 68 19 168/79 (108) 11/01/18 16:59 Room Air 11/01/18 16:32 98.6 75 19 134/85 100 Room Air Height (Feet): 5 Height (Inches): 6.00 Weight (Pounds): 160 General Appearance: WD/WN, no acute distress, cachetic HEENT: normocephalic, atraumatic, anicteric, mucous membranes moist, other - dry discharge in the left eye Respiratory/Chest: chest wall non-tender, lungs clear, normal breath sounds, no respiratory distress, no accessory muscle use Cardiovascular: normal peripheral pulses, normal rate, regular rhythm, no gallop/murmur, no JVD Abdomen: normal bowel sounds, soft, non tender, no organomegaly, non distended , no mass, no scars Genitourinary: normal external genitalia Extremities: no cyanosis, no clubbing Skin: no rash, no lesions, no ulcers Neurologic/Psychiatric: alert, responsive Lymphatic: no neck adenopathy, no groin adenopathy Musculoskeletal: normal muscle bulk, no effusion Laboratory Tests Test 11/02/18 06:45 11/02/18 12:10 White Blood Count 8.7 K/UL (4.8-10.8) Red Blood Count 4.21 M/UL (4.70-6.10) L Hemoglobin 9.7 G/DL (14.2-18.0) L Hematocrit 31.4 % (42.0-52.0) L Mean Corpuscular Volume 75 FL (80-99) L Mean Corpuscular Hemoglobin 23.0 PG (27.0-31.0) L Mean Corpuscular Hemoglobin Concent 30.9 G/DL (32.0-36.0) L Red Cell Distribution Width 13.6 % (11.6-14.8) Platelet Count 202 K/UL (150-450) Mean Platelet Volume 6.0 FL (6.5-10.1) L Neutrophils (%) (Auto) 83.9 % (45.0-75.0) H Lymphocytes (%) (Auto) 9.8 % (20.0-45.0) L Monocytes (%) (Auto) 3.8 % (1.0-10.0) Eosinophils (%) (Auto) 1.8 % (0.0-3.0) Basophils (%) (Auto) 0.8 % (0.0-2.0) Sodium Level 143 MMOL/L (136-145) Potassium Level 4.2 MMOL/L (3.5-5.1) Chloride Level 106 MMOL/L (98-107) Carbon Dioxide Level 24 MMOL/L (21-32) Anion Gap 13 mmol/L (5-15) Blood Urea Nitrogen 23 mg/dL (7-18) H Creatinine 1.4 MG/DL (0.55-1.30) H Estimat Glomerular Filtration Rate mL/min (>60) Glucose Level 103 MG/DL (74-106) Calcium Level 8.7 MG/DL (8.5-10.1) Random Vancomycin Level 11.5 ug/mL Current Medications Medications (Trade) Dose Ordered Sig/Charlene Route PRN Reason Start Time Stop Time Status Last Admin Dose Admin Amlodipine Besylate (Norvasc) 5 mg DAILY ORAL 11/02/18 09:00 12/02/18 08:59 11/02/18 09:12 Aspirin (ASA) 81 mg DAILY ORAL 11/02/18 09:00 12/02/18 08:59 11/02/18 09:12 Citalopram Hydrobromide (celeXA) 40 mg BEDTIME ORAL 11/01/18 21:00 12/01/18 20:59 11/01/18 20:17 Dextrose (Dextrose 50%) 25 ml Q30M PRN IV Hypoglycemia 11/01/18 17:30 12/01/18 17:29 Dextrose (Dextrose 50%) 50 ml Q30M PRN IV Hypoglycemia 11/01/18 17:30 12/01/18 17:29 Enalapril Maleate (Vasotec) 20 mg DAILY ORAL 11/02/18 09:00 12/02/18 08:59 11/02/18 09:12 Ertapenem 1 gm/ Sodium Chloride 55 ml @ 110 mls/hr Q24H IVPB 11/01/18 20:00 11/02/18 19:59 11/01/18 20:08 Ertapenem 1 gm/ Sodium Chloride 55 ml @ 110 mls/hr Q24H IVPB 11/02/18 20:00 11/07/18 19:59 Heparin Sodium (Porcine) (Heparin 5000 units/ml) 5,000 units EVERY 12 HOURS SUBQ 11/01/18 21:00 12/01/18 20:59 11/02/18 09:13 Insulin Aspart (NovoLOG) BEFORE MEALS AND HS SUBQ 11/01/18 21:00 12/01/18 20:59 11/02/18 12:04 Multivitamins Therapeutic (Therapeutic Multivitamin) 1 ea DAILY ORAL 11/02/18 09:00 12/02/18 08:59 11/02/18 09:12 Oxybutynin Chloride (Ditropan) 2.5 mg TWICE A DAY ORAL 11/01/18 18:00 12/01/18 17:59 11/02/18 09:12 Sodium Chloride 1,000 ml @ 50 mls/hr Q20H IV 11/01/18 17:48 12/01/18 17:47 11/01/18 17:48 Vancomycin HCl (Vanco rx to dose) 1 ea DAILY PRN MISC Per rx protocol 11/01/18 20:00 12/01/18 19:59 Vancomycin HCl 750 mg/Sodium Chloride 275 ml @ 183.333 mls/hr ONCE IVPB 11/02/18 15:00 11/02/18 17:00 Frida Billings M.D. Nov 02, 2018 15:14
--- NOTE | 2018-11-02 15:40 | Cardiology Report ---
APPROVED REPORT EKG Measurement Heart [id number] CA [id number] Sinus rhythm with premature atrial complexes Left axis deviation Left bundle branch block Abnormal ECG
--- NOTE | 2018-11-02 15:41 | NUR ---
CASE MANAGEMENT: INITIAL REVIEW 87 YO M ANGELY FROM [facility] CC: GEN WEAKNESS PMHx: DM .HTN. DEMENTIA. TIA. SI:UTI. ANEMIA. GUERO. T 98.6 HR 57 RR 18 B/P 132/60 SATS 96% ON RA BUN 29 CR 1.5 GLU 145 AST 14 ALT 10 ALP 141 LACTIC ACID 3.9 IS: NS BOLUS X2 [id number] IV X1 CXR IMPRESSION: Mild left basal atelectasis. No significant change PATIENT ADMITTED TO MED/SURG 11/01/2018 @ 1512 DCP:PATIENT TO BE DISCHARGED TO HOME ONCE MEDICALLY CLEARED. PLAN OF CARE: IV ANTIBx Addendum: 11/02/18 at 1549 by Sofie Deras CM INTERQUAL MET
[2018-11-02 16:00] VITALS: BP 115/75
--- NOTE | 2018-11-02 17:01 | NUR ---
P.T NOTE: LATE ENTRY 1020 P.T EVALUATION COMPLETED . PATIENT IS AWAKE HOWEVER ESSENTIALLY NO ABLE TO PHYSICALLY FOLLOW COMMANDS. PATIENT IS DEPENDENT IN ALL AREAS OF ADL/FUNCTIONAL MOBILITIES AND SELF CARE TASKS. PATIENT IS NOT A CANDIDATE FOR SKILLED P.T. SERVICE PATIENT IS ALREADY AT BASELINE FUNCTION. RECOMMEND D/C TO PRIOR LIVING ARRANGEMENT FOR TOTAL CARE AND COMFORT. D/C P.T SERVICES Addendum: 11/02/18 at 1701 by ART SHAIKH PT Amended: Links added.
--- NOTE | 2018-11-02 18:04 | General Progress Note ---
Assessment/Plan Status: stable Assessment/Plan: 1. UTI - cont Vanco and Invanz 1 gm IV daily. Follow Up urine C&S. 2. Leaky suprapubic cath - will call Urology to change suprapubic cath. 3. Generalized Weakness - will have PT and OT eval and Txt. 4. SSS s/p pacemaker placement 5. DM II - starting SSI and hold metformin. 6. HTN - amlodipine 5 mg one po daily and enalapril 20 mg daily. 7. Depression - cont celexa 40 mg one po qhs. Subjective Date patient seen: Nov 02, 2018 Time patient seen: 17:45 Constitutional: Reports: weakness HEENT: Reports: no symptoms Cardiovascular: Reports: no symptoms Respiratory: Reports: no symptoms Gastrointestinal/Abdominal: Reports: no symptoms Genitourinary: Reports: no symptoms Neurologic/Psychiatric: Reports: no symptoms Endocrine: Reports: no symptoms Hematologic/Lymphatic: Reports: no symptoms Allergies: Coded Allergies: No Known Allergies (Unverified , 11/26/14) Subjective Patient is doing better. his urinary cath is leaking and awaiting urology evaluation. afebrile. Objective Last 24 Hour Vital Signs Date Time Temp Pulse Resp B/P (MAP) Pulse Ox O2 Delivery O2 Flow Rate FiO2 11/02/18 12:00 98.7 76 20 103/78 (86) 95 11/02/18 09:12 105/68 11/02/18 09:12 77 105/68 11/02/18 09:00 Room Air 11/02/18 08:00 97.7 77 18 105/68 (80) 95 11/02/18 04:00 98.7 61 18 133/66 (88) 11/01/18 21:00 Room Air 11/01/18 20:00 97.9 68 19 168/79 (108) Intake and Output 11/01/18 11/02/18 19:00 07:00 Intake Total 2105 ml 450 ml Output Total 450 ml Balance 1655 ml 450 ml Intake Oral 0 ml IV Total 2105 ml 450 ml Output Urine Total 450 ml # Voids 3 # Bowel Movements 1 Laboratory Tests 11/02/18 06:45: White Blood Count 8.7, Red Blood Count 4.21L, Hemoglobin 9.7L, Hematocrit 31.4L , Mean Corpuscular Volume 75L, Mean Corpuscular Hemoglobin 23.0L, Mean Corpuscular Hemoglobin Concent 30.9L, Red Cell Distribution Width 13.6, Platelet Count 202, Mean Platelet Volume 6.0L, Neutrophils (%) (Auto) 83.9H, Lymphocytes (%) (Auto) 9.8L, Monocytes (%) (Auto) 3.8, Eosinophils (%) (Auto) 1.8, Basophils (%) (Auto) 0.8, Sodium Level 143, Potassium Level 4.2, Chloride Level 106, Carbon Dioxide Level 24, Anion Gap 13, Blood Urea Nitrogen 23H, Creatinine 1.4H, Estimat Glomerular Filtration Rate , Glucose Level 103, Calcium Level 8.7 11/02/18 12:10: Random Vancomycin Level 11.5 Height (Feet): 5 Height (Inches): 6.00 Weight (Pounds): 160 General Appearance: no apparent distress EENT: normal ENT inspection Neck: non-tender, normal alignment, supple Cardiovascular: normal rate, regular rhythm Respiratory/Chest: chest wall non-tender, lungs clear, normal breath sounds Abdomen: normal bowel sounds, non tender, soft Extremities: non-tender Edema: no edema noted Arm (L), no edema noted Arm (R), no edema noted Leg (L), no edema noted Leg (R), no edema noted Pedal (L), no edema noted Pedal (R), no edema noted Generalized Neurologic: no motor/sensory deficits, alert, responsive Skin: warm/dry Lymphatic: normal anterior cervical (L), normal anterior cervical (R), normal posterior cervical (L), normal posterior cervical (R), normal submandibular (L) , normal submandibular (R), normal supraclavicular (L), normal supraclavicular ( R), normal axillary (L), normal axillary (R), normal inguinal (L), normal inguinal (R), normal other Suad Loving MD Nov 02, 2018 18:04
[2018-11-02] MEDS ORDERED: MULTIVITAMINS1 EAC2 ORAL (19:09)
--- NOTE | 2018-11-02 19:30 | NUR ---
NURSE NOTES: OBTAINED REPORT FROM GUSTAVO JOINER. PT RESTING IN BED COMFORTABLY.
--- NOTE | 2018-11-02 19:50 | NUR ---
HAND-OFF: Report given to RHYS Schuler.
[2018-11-02 20:00] VITALS: BP 90/51
--- NOTE | 2018-11-02 20:15 | Consultation ---
DATE OF CONSULTATION: 11/01/2018 INFECTIOUS DISEASES CONSULTATION CONSULTING PHYSICIAN: Frida Billings M.D. REQUESTING PHYSICIAN: Inder Borjas M.D. REASON FOR CONSULTATION: Catheter-associated urine tract infection, recurrent. Recommendation for antibiotics treatment, possible sepsis too. HISTORY OF PRESENT ILLNESS: The patient is an 87-year-old, Farsi speaker male with past medical history of diabetes, hypertension, and urinary retention status post suprapubic catheter placement and recurrent urinary tract infection due to leaking suprapubic catheter in the past was sent to the emergency room at [facility] for generalized weakness and encephalopathy. The patient was sent from [facility] where he lives at. The patient was noticed to be weak over the last couple of days and has suprapubic catheter which has been leaking urine for few days. No fever or chills. No abdominal pain, nausea, vomiting, or diarrhea. In the ER, the patient's white count was in normal range. No fever on his vital signs. His urinalysis showed evidence of infection so Infectious Diseases consultation was requested for antibiotics treatment and further management and he was started on Invanz by the primary provider. As of note, the patient is poor historian, cannot provide any history. History was mainly obtained from the medical record. REVIEW OF SYSTEMS: Unable to obtain. The patient is altered, encephalopathic, cannot provide any history. PAST MEDICAL HISTORY: Significant for hypertension, diabetes, coronary artery disease, depression, dementia, osteoarthritis, sick sinus syndrome status post pacemaker placement, and history of suprapubic catheterization with recurrent urinary tract infection. PAST SURGICAL HISTORY: Include history of suprapubic catheter placement and pacemaker placement. ALLERGIES: No known drug allergies. SOCIAL HISTORY: The patient lives at the [facility]. No recent drugs, tobacco, or alcohol. FAMILY HISTORY: Unable to obtain. MEDICATIONS: The patient was started on Invanz 1 g IV q.24 hours. For the rest of his medications, please refer to MAR. LABORATORY AND DIAGNOSTIC DATA: Labs showed white count of 10.2, hemoglobin of 10.4, platelet count of 223. BUN of 29 and creatinine of 1.5. AST of 14, ALT of 10. Urinalysis showed +3 leukocyte esterase, wbc's 5 to 10, and few urine bacteria. IMAGING: Chest x-ray showed mild left basal atelectases, no significant changes. PHYSICAL EXAMINATION: VITAL SIGNS: Temperature 98.6, pulse 87, respirations 18, blood pressure 132/60, saturation 98% on room air. GENERAL: An elderly male, lying in bed, lethargic and barely responsive, not in acute distress. Does not follow commands. HEENT: Normocephalic and atraumatic. Pupils are reactive to light equally. Moist oral mucosa. No exudate. NECK: Supple. No lymphadenopathy. CARDIOVASCULAR: Regular rate and rhythm. Paced rhythm. No murmur or gallop. LUNGS: Diminished breathing sounds at the bases. No wheezing or rhonchi. Normal breathing efforts. ABDOMEN: Soft, nontender, nondistended. Normal bowel sounds. No hepatosplenomegaly or ascites. Suprapubic catheter leaking urine around it with minimal erythema. No pus draining. EXTREMITIES: No edema or cyanosis. No clubbing. SKIN: No rash. No hives. No ulceration. ASSESSMENT AND RECOMMENDATION: 1. Catheter-associated urine tract infection, recurrent. Continue ertapenem for now. Add vancomycin empirically and send urine culture since it has not been sent from the ED. Deescalate antibiotics based on his culture. Recommend to change suprapubic Patricio to prevent leaking in the future. 2. Altered level of consciousness, rule out sepsis versus catheter-associated urinary tract infection. Continue wide-spectrum antibiotics coverage for now with vancomycin and ertapenem pending culture of the blood. Avoid sedative. Monitor in telemetry. 3. Acute renal failure suspect dehydration. Continue IV fluids with close monitor of renal function and renally dosed antibiotics. 4. Suprapubic catheter dysfunction leaking urine around it. Recommend changing Patricio and Urology evaluation. Thank you for the consult. ID will continue to follow. Frida Billings M.D. DR: Sarah JOB#: [id number] CC:
[2018-11-02] MEDS: Citalopram Hydrobromide 10mg Tab ORAL SCH (21:00)
[2018-11-02] MEDS: Ertapenem 1 GM in NS 55 ML IVPB SCH (21:43)
[2018-11-03] VITALS: BP 129/77
[2018-11-03 05:00] VITALS: BP 125/60
[2018-11-03] MEDS: NovoLOG Insulin Flexpen SUBQ SCH ×4 (06:08→21:24)
--- NOTE | 2018-11-03 07:00 | NUR ---
HAND-OFF: Report given to Barb JOINER. Pt in bed free from apparent distress.
--- NOTE | 2018-11-03 07:39 | NUR ---
NURSE NOTES: Patient asleep, on room air, no sign of distress and shortness of breath; no sign of chest pain; IV RAC NS 50cc running; side rails up x3, breaks engaged, bed alarm on, bed at lowest position, head of the bed elevated; will keep monitoring.
[2018-11-03 08:00] VITALS: BP 123/53
[2018-11-03 08:18] LABS: EOSINOPHILS % (AUTO) 9.3 % (0.0-3.0); HEMATOCRIT 30.5 % (42.0-52.0); HEMOGLOBIN 9.3 G/DL (14.2-18.0); LYMPHOCYTES % (AUTO) 23.7 % (20.0-45.0); MEAN CORPUSCULAR VOLUME 75 FL (80-99); MONOCYTES % (AUTO) 5.4 % (1.0-10.0); NEUTROPHILS % (AUTO) 60.5 % (45.0-75.0); PLATELET COUNT 191 K/UL (150-450); RED BLOOD COUNT 4.05 M/UL (4.70-6.10); RED CELL DISTRIBUTION WIDTH 13.3 % (11.6-14.8); WHITE BLOOD COUNT 6.2 K/UL (4.8-10.8)
--- NOTE | 2018-11-03 08:21 | General Progress Note ---
Assessment/Plan Status: stable Assessment/Plan: 1. UTI - cont Vanco and Invanz 1 gm IV daily. Follow Up urine C&S. ID following. D/c Planning to [facility] rehab tomorrow. 2. Leaky suprapubic cath - awaiting Urologist to change suprapubic cath. 3. Generalized Weakness - will have PT and OT eval and Txt. 4. SSS s/p pacemaker placement 5. DM II - cont SSI. 6. HTN - amlodipine 5 mg one po daily and enalapril 20 mg daily. 7. Depression - cont celexa 40 mg one po qhs. Subjective Date patient seen: Nov 03, 2018 Time patient seen: 08:15 Constitutional: Reports: weakness HEENT: Reports: no symptoms Cardiovascular: Reports: no symptoms Respiratory: Reports: no symptoms Gastrointestinal/Abdominal: Reports: no symptoms Genitourinary: Reports: no symptoms Neurologic/Psychiatric: Reports: no symptoms Endocrine: Reports: no symptoms Hematologic/Lymphatic: Reports: no symptoms Allergies: Coded Allergies: No Known Allergies (Unverified , 11/26/14) Subjective Patient is doing better. his urinary cath is leaking and awaiting urologist to change the cath. afebrile and alert this morning. Objective Last 24 Hour Vital Signs Date Time Temp Pulse Resp B/P (MAP) Pulse Ox O2 Delivery O2 Flow Rate FiO2 11/03/18 05:00 98.6 90 20 125/60 (81) 95 11/03/18 00:00 97.8 105 20 129/77 (94) 96 11/02/18 20:00 97.6 67 20 90/51 (64) 96 11/02/18 20:00 Room Air 11/02/18 16:00 98.1 63 20 115/75 (88) 95 11/02/18 12:00 98.7 76 20 103/78 (86) 95 11/02/18 09:12 105/68 11/02/18 09:12 77 105/68 11/02/18 09:00 Room Air Intake and Output 11/02/18 11/03/18 18:59 06:59 Intake Total 910 ml 50 ml Output Total 100 ml 750 ml Balance 810 ml -700 ml Intake Oral 360 ml IV Total 550 ml 50 ml Output Urine Total 100 ml 750 ml # Voids 4 # Bowel Movements 1 Laboratory Tests 11/02/18 12:10: Random Vancomycin Level 11.5 11/03/18 06:44: White Blood Count [Pending], Red Blood Count [Pending], Hemoglobin [Pending], Hematocrit [Pending], Mean Corpuscular Volume [Pending], Mean Corpuscular Hemoglobin [Pending], Mean Corpuscular Hemoglobin Concent [Pending], Red Cell Distribution Width [Pending], Platelet Count [Pending], Mean Platelet Volume [ Pending], Neutrophils (%) (Auto) [Pending], Lymphocytes (%) (Auto) [Pending], Monocytes (%) (Auto) [Pending], Eosinophils (%) (Auto) [Pending], Basophils (%) (Auto) [Pending], Sodium Level [Pending], Potassium Level [Pending], Chloride Level [Pending], Carbon Dioxide Level [Pending], Blood Urea Nitrogen [Pending], Creatinine [Pending], Estimat Glomerular Filtration Rate [Pending], Glucose Level [Pending], Calcium Level [Pending] Height (Feet): 5 Height (Inches): 6.00 Weight (Pounds): 160 General Appearance: no apparent distress, alert Neck: non-tender, normal alignment, supple Cardiovascular: normal rate, regular rhythm Respiratory/Chest: lungs clear, normal breath sounds Abdomen: normal bowel sounds, non tender, soft Extremities: normal range of motion, non-tender Edema: no edema noted Arm (L), no edema noted Arm (R), no edema noted Leg (L), no edema noted Leg (R), no edema noted Pedal (L), no edema noted Pedal (R), no edema noted Generalized Neurologic: alert, responsive Skin: warm/dry Lymphatic: normal anterior cervical (L), normal anterior cervical (R), normal posterior cervical (L), normal posterior cervical (R), normal submandibular (L) , normal submandibular (R), normal supraclavicular (L), normal supraclavicular ( R), normal axillary (L), normal axillary (R), normal inguinal (L), normal inguinal (R), normal other Suad Loving MD Nov 03, 2018 08:21
[2018-11-03] MEDS ORDERED: INVANZ1 G1 IVPB (08:27)
[2018-11-03] MEDS ORDERED: NOVOLOG100 UNITS1 SUBQ (08:27)
[2018-11-03 08:43] LABS: ANION GAP 9 mmol/L (5-15); BLOOD UREA NITROGEN 25 mg/dL (7-18); CALCIUM 8.4 MG/DL (8.5-10.1); CARBON DIOXIDE 26 MMOL/L (21-32); CHLORIDE 109 MMOL/L (98-107); CREATININE 1.4 MG/DL (0.55-1.30); POTASSIUM 4.3 MMOL/L (3.5-5.1); SODIUM 144 MMOL/L (136-145)
[2018-11-03] MEDS: Multivitamin w/Minerals tab ORAL SCH (08:54)
[2018-11-03] MEDS: Oxybutynin 5mg tab ORAL SCH ×2 (08:54→17:30)
[2018-11-03] MEDS: Aspirin Baby 81mg ORAL SCH (08:54)
[2018-11-03] MEDS: Heparin 5000 units/ml inj SUBQ SCH ×2 (08:55→21:02)
--- NOTE | 2018-11-03 09:30 | NUR ---
CHARGE NURSE NOTE: is at the pt's bed. Suprapubic catheter was changed by . notified.
--- NOTE | 2018-11-03 10:37 | NUR ---
DISCHARGE PLANNING: NOTE PATIENT HAS BEEN ACCEPTED TO ROOM 118B AT [facility] PER CHARLENE. DR YOON WAS MADE AWARE BED IS READY TODAY. HE REQUESTED DC ORDER REMAIN THE SAME. CM WILL F/U IN AM.
--- NOTE | 2018-11-03 11:00 | Consultation ---
DATE OF CONSULTATION: 11/03/2018 UROLOGY CONSULTATION CONSULTING PHYSICIAN: Jorge Mast M.D. ATTENDING/REFERRING PHYSICIAN: Suad Loving M.D. CHIEF COMPLAINT/HISTORY OF PRESENT ILLNESS: I was asked by Dr. Loving to change his suprapubic catheter on this 87-year-old gentleman. Briefly, the patient has a history of chronic indwelling SP tube. He has had urinary tract infection secondary to same. He presents to the hospital from his assisted living facility where he has been weak for the last two days and the catheter has been leaking. Given the above, I was asked to evaluate the patient. PAST MEDICAL HISTORY: 1. Chronic urinary retention with suprapubic catheter. 2. Hypertension. 3. Diabetes. 4. Coronary artery disease. 5. Dementia. 6. Osteoarthritis. 7. Sick sinus syndrome. 8. Urinary tract infection. PAST SURGICAL HISTORY: 1. SP tube placement. 2. Pacemaker placement. MEDICATIONS: Please see chart for current medications and administration details. ALLERGIES: No known drug allergies. SOCIAL HISTORY: The patient lives at an assisted living facility. There does not appear to be history of alcohol, drug, or tobacco use. FAMILY HISTORY: Unavailable/noncontributory. REVIEW OF SYSTEMS: A 14-system review of systems is limited by the patient's age and dementia, but cannot was essentially unremarkable outside what was described above. PHYSICAL EXAMINATION: GENERAL: The patient is an elderly gentleman, resting comfortably, in no obvious distress. HEENT: NC/AT. EOMI. Oropharynx clear. NECK: Supple. CHEST: Within normal limits. ABDOMEN: Soft, flat, nontender and nondistended. SP tube site clean, dry and intact. EXTREMITIES: Warm and well perfused. No cyanosis, clubbing, or edema. BACK: No CVA tenderness to percussion appreciable. NEUROLOGIC: Notable for dementia. The patient cannot really cooperate with the remainder of the exam. GENITOURINARY: Shows normal male external genitalia. LABORATORY DATA: White blood cell count 6.2, hematocrit 30.5, and platelets 191. Sodium 144, potassium 4.3, chloride 109, bicarb 26, BUN 25, and creatinine 1.4. Glucose 83. Calcium 8.4. Urinalysis, specific gravity 1.015, pH 8.0. Dip test is notable for 3+ protein, 4+ occult blood, and 3+ leukocyte esterase. Microanalysis with 5 to 10 red and white blood cells per high-power field and few bacteria seen. Urine culture with gram-negative rods. Identification and susceptibility is pending. Blood cultures, no growth in final. MRSA culture positive for Staph aureus in the nares. DIAGNOSTIC IMAGING: Chest x-ray with mild left basal atelectasis. No significant change. ASSESSMENT AND PLAN: In summary, the patient is an 87-year-old gentleman with a history of chronic urinary retention managed with suprapubic catheter. He presents to the hospital with altered mental status, weakness and a leaking SP tube. Physical exam reveals a debilitated elderly gentleman with an SP tube in place. Laboratory data is notable for evidence of a urinary tract infection and a final culture is pending. Blood cultures are negative. There is no relevant diagnostic imaging. Today at the bedside, I removed and replaced the patient's suprapubic catheter. After inserting a new one, it irrigated easily and without difficulty indicating it was in good position within the bladder. It was inflated and left to gravity drainage. The patient's antibiotics can be managed per the ID specialist. If he is otherwise stable, he is okay from a standpoint to proceed back to his nursing facility. Thank you for allowing me to participate in the care of this gentleman. Please do not hesitate to contact me with the questions that you may further have regarding his care. I will see him with you as needed. Jorge Mast M.D. DR: BECKA JOB#: [id number] CC:
[2018-11-03 12:00] VITALS: BP 126/69
[2018-11-03 16:00] VITALS: BP 121/67
[2018-11-03] MEDS ORDERED: Vancomycin 750mg/NS 275ml IVPB SCH ×2 (16:00)
--- NOTE | 2018-11-03 19:51 | NUR ---
NURSE NOTES: Received patient in bed, Farsi speaking, confused, disoriented, on room air, soft easy chew diet, patient is a feeder. No acute distress noted, VSS, afebrile, suprapubic catheter is in place, draining well. Call light is within reach, bed is in low position, locked and alarm is on. Will continue to monitor for safety and comfort.
[2018-11-03 20:00] VITALS: BP 128/73
--- NOTE | 2018-11-03 20:00 | NUR ---
HAND-OFF: Report given to RHYS Gallegos.
--- NOTE | 2018-11-03 20:18 | Infectious Diseases Prog Note ---
Assessment/Plan Problems: (1) Catheter-associated urinary tract infection Assessment & Plan: due to gram negative rods , continue ertapenem empirically pending final culture result , and stop vancomycin empirically (2) Altered level of consciousness Assessment & Plan: possible due to CAUTI, continue wide spectrum antibiotics pending cultures (3) ARF (acute renal failure) Assessment & Plan: suspect dehydration, continue IVF with close monitor of renal function, and renally dosed antibiotics (4) Suprapubic catheter dysfunction Assessment & Plan: his catheter was changed today by urology Subjective ROS Limited/Unobtainable: Yes Allergies: Coded Allergies: No Known Allergies (Unverified , 11/26/14) Subjective He was more awake , and alert, still lethargic , nonverbal, afebrile, no cough or SOB, has his suprapubic catheter changed today by urologist Objective Vital Signs Last 24 Hour Vital Signs Date Time Temp Pulse Resp B/P (MAP) Pulse Ox O2 Delivery O2 Flow Rate FiO2 11/03/18 16:00 97.8 69 18 121/67 (85) 95 11/03/18 12:00 97.9 61 18 126/69 (88) 95 11/03/18 10:01 Room Air 11/03/18 09:00 Room Air 11/03/18 08:56 59 123/53 11/03/18 08:55 123/53 11/03/18 08:00 98.9 59 18 123/53 (76) 98 11/03/18 05:00 98.6 90 20 125/60 (81) 95 11/03/18 00:00 97.8 105 20 129/77 (94) 96 Height (Feet): 5 Height (Inches): 6.00 Weight (Pounds): 160 General Appearance: no acute distress, cachetic HEENT: normocephalic, atraumatic, anicteric, mucous membranes moist, PERRL, EOMI, pharynx normal, supple, no JVD Respiratory/Chest: chest wall non-tender, normal breath sounds, no respiratory distress, no accessory muscle use, decreased breath sounds Cardiovascular: normal peripheral pulses, normal rate, regular rhythm, no gallop/murmur, no JVD Abdomen: normal bowel sounds, soft, non tender, no organomegaly, non distended , no mass, no scars Extremities: no cyanosis, no clubbing Skin: no rash, no lesions Neurologic/Psychiatric: alert, responsive Lymphatic: no neck adenopathy, no groin adenopathy Musculoskeletal: normal muscle bulk Microbiology Date/Time Source Procedure Growth Status 11/01/18 13:20 Blood Blood Culture - Preliminary NO GROWTH AFTER 24 HOURS Resulted 11/01/18 13:10 Blood Blood Culture - Preliminary NO GROWTH AFTER 24 HOURS Resulted 11/01/18 16:15 Nasal Nares MRSA Culture - Final Staphylococcus Aureus - Mrsa Complete 11/01/18 22:40 Urine,Suprapubic Urine Culture - Preliminary Gram Negative Ian Resulted 11/01/18 16:15 Rectum - Final NO CARBAPENEM-RESISTANT ENTEROBACTERI... Resulted Laboratory Tests Test 11/03/18 06:44 White Blood Count 6.2 K/UL (4.8-10.8) Red Blood Count 4.05 M/UL (4.70-6.10) L Hemoglobin 9.3 G/DL (14.2-18.0) L Hematocrit 30.5 % (42.0-52.0) L Mean Corpuscular Volume 75 FL (80-99) L Mean Corpuscular Hemoglobin 23.0 PG (27.0-31.0) L Mean Corpuscular Hemoglobin Concent 30.6 G/DL (32.0-36.0) L Red Cell Distribution Width 13.3 % (11.6-14.8) Platelet Count 191 K/UL (150-450) Mean Platelet Volume 6.1 FL (6.5-10.1) L Neutrophils (%) (Auto) 60.5 % (45.0-75.0) Lymphocytes (%) (Auto) 23.7 % (20.0-45.0) Monocytes (%) (Auto) 5.4 % (1.0-10.0) Eosinophils (%) (Auto) 9.3 % (0.0-3.0) H Basophils (%) (Auto) 1.0 % (0.0-2.0) Sodium Level 144 MMOL/L (136-145) Potassium Level 4.3 MMOL/L (3.5-5.1) Chloride Level 109 MMOL/L (98-107) H Carbon Dioxide Level 26 MMOL/L (21-32) Anion Gap 9 mmol/L (5-15) Blood Urea Nitrogen 25 mg/dL (7-18) H Creatinine 1.4 MG/DL (0.55-1.30) H Estimat Glomerular Filtration Rate mL/min (>60) Glucose Level 83 MG/DL (74-106) Calcium Level 8.4 MG/DL (8.5-10.1) L Current Medications Medications (Trade) Dose Ordered Sig/Charlene Route PRN Reason Start Time Stop Time Status Last Admin Dose Admin Amlodipine Besylate (Norvasc) 5 mg DAILY ORAL 11/02/18 09:00 12/02/18 08:59 11/03/18 08:56 Aspirin (ASA) 81 mg DAILY ORAL 11/02/18 09:00 12/02/18 08:59 11/03/18 08:54 Citalopram Hydrobromide (celeXA) 40 mg BEDTIME ORAL 11/01/18 21:00 12/01/18 20:59 11/01/18 20:17 Dextrose (Dextrose 50%) 25 ml Q30M PRN IV Hypoglycemia 11/01/18 17:30 12/01/18 17:29 Dextrose (Dextrose 50%) 50 ml Q30M PRN IV Hypoglycemia 11/01/18 17:30 12/01/18 17:29 Enalapril Maleate (Vasotec) 20 mg DAILY ORAL 11/02/18 09:00 12/02/18 08:59 11/03/18 08:55 Ertapenem 1 gm/ Sodium Chloride 55 ml @ 110 mls/hr Q24H IVPB 11/02/18 20:00 11/07/18 19:59 11/02/18 21:43 Heparin Sodium (Porcine) (Heparin 5000 units/ml) 5,000 units EVERY 12 HOURS SUBQ 11/01/18 21:00 12/01/18 20:59 11/03/18 08:55 Insulin Aspart (NovoLOG) BEFORE MEALS AND HS SUBQ 11/01/18 21:00 12/01/18 20:59 11/03/18 16:19 Multivitamins Therapeutic (Therapeutic Multivitamin) 1 ea DAILY ORAL 11/02/18 09:00 12/02/18 08:59 11/03/18 08:54 Oxybutynin Chloride (Ditropan) 2.5 mg TWICE A DAY ORAL 11/01/18 18:00 12/01/18 17:59 11/03/18 17:30 Sodium Chloride 1,000 ml @ 50 mls/hr Q20H IV 11/01/18 17:48 12/01/18 17:47 11/03/18 09:48 Vancomycin HCl (Vanco rx to dose) 1 ea DAILY PRN MISC Per rx protocol 11/01/18 20:00 12/01/18 19:59 Vancomycin HCl 750 mg/Sodium Chloride 275 ml @ 183.333 mls/hr Q24H IVPB 11/03/18 16:00 11/08/18 15:59 11/03/18 16:16 Frida Billings M.D. Nov 03, 2018 20:18
[2018-11-03] MEDS: Ertapenem 1 GM in NS 55 ML IVPB SCH (21:01)
[2018-11-03] MEDS: Citalopram Hydrobromide 10mg Tab ORAL SCH (21:01)
[2018-11-04 00:37] VITALS: BP 124/58
[2018-11-04 04:04] VITALS: BP 149/73
[2018-11-04] MEDS: NovoLOG Insulin Flexpen SUBQ SCH ×2 (06:13→11:59)
--- NOTE | 2018-11-04 07:33 | NUR ---
HAND-OFF: Report given to [place] JOINER.
--- NOTE | 2018-11-04 07:35 | NUR ---
NURSE NOTES: Patient lying in bed sleeping. No signs and symptoms of pain or distress at this time. Noted suprapubic catheter leaking and changed dressing. IV dressing intact and dry. Bed lowest position. Call light within reach. Will continue to monitor.
[2018-11-04 08:00] VITALS: BP 140/76
[2018-11-04] MEDS: Multivitamin w/Minerals tab ORAL SCH (08:35)
[2018-11-04] MEDS: Aspirin Baby 81mg ORAL SCH (08:35)
[2018-11-04] MEDS: Oxybutynin 5mg tab ORAL SCH (08:36)
[2018-11-04] MEDS: Heparin 5000 units/ml inj SUBQ SCH (08:38)
--- NOTE | 2018-11-04 08:58 | NUR ---
DISCHARGE PLANNED PT. WILL DC TO: [facility] ROOM [address] SKILLED T [phone] FOR NURSE TO NURSE REPORT [facility] WILL [facility] AT 1000
--- NOTE | 2018-11-04 09:15 | NUR ---
NURSE NOTES: Spoke to regarding suprapubic catheter leaking. No new order at this time and monitor. Will continue to monitor.
--- NOTE | 2018-11-04 09:16 | Urology Progress Note ---
Assessment/Plan Status: stable Assessment/Plan: urinary retention with chronic SP tube leakage from SP tube insertion site probable neurogenic bladder BPH hx pyuria/UTI/colonized proteinuria hematuria mild CKD bladder neck contracture/stricture SP tube last exchanged 11/03 hand irrigated and do PRN persistent leakage of urine around SP tube insertion site leakage presumably secondary to bladder spasms and patulous opening of SP tube site d/w pt's son and Dr. Loving not feasible to do any type of surg on the site would cont with anticholinergics, can increase dose hand irrigate SP tube PRN to make sure patent thanks, Subjective Allergies: Coded Allergies: No Known Allergies (Unverified , 11/26/14) Subjective all noted, my initial evaluation for this admission pt known to me from mult prev evaluations hx of prev prostatectomy with bladder neck contracture/stricture hx of chroic SP tube, chronic leakage from SP insertion site admitted with weakness Dr. Mats changed the pt's SP tube yest and it has been draining well still some leakage PMH/chart all noted Objective Last 24 Hour Vital Signs Date Time Temp Pulse Resp B/P (MAP) Pulse Ox O2 Delivery O2 Flow Rate FiO2 11/04/18 08:36 140/76 11/04/18 08:36 99 140/76 11/04/18 04:04 97.8 101 22 149/73 (98) 11/04/18 00:37 97.6 61 19 124/58 (80) 11/03/18 21:00 Room Air 11/03/18 20:00 98.5 65 18 128/73 (91) 11/03/18 16:00 97.8 69 18 121/67 (85) 95 11/03/18 12:00 97.9 61 18 126/69 (88) 95 11/03/18 10:01 Room Air Intake and Output 11/03/18 11/04/18 18:59 06:59 Intake Total 816.666 ml 1010 ml Balance 816.666 ml 1010 ml IV Total 816.666 ml 450 ml Other 560 ml Microbiology Date/Time Source Procedure Growth Status 11/01/18 13:20 Blood Blood Culture - Preliminary NO GROWTH AFTER 48 HOURS Resulted 11/01/18 16:15 Nasal Nares MRSA Culture - Final Staphylococcus Aureus - Mrsa Complete 11/01/18 22:40 Urine,Suprapubic Urine Culture - Preliminary Proteus Mirabilis Resulted 11/01/18 16:15 Rectum - Final NO CARBAPENEM-RESISTANT ENTEROBACTERI... Resulted Laboratory Tests Test 11/02/18 12:10 11/03/18 06:44 Random Vancomycin Level 11.5 ug/mL White Blood Count 6.2 K/UL (4.8-10.8) Red Blood Count 4.05 M/UL (4.70-6.10) L Hemoglobin 9.3 G/DL (14.2-18.0) L Hematocrit 30.5 % (42.0-52.0) L Mean Corpuscular Volume 75 FL (80-99) L Mean Corpuscular Hemoglobin 23.0 PG (27.0-31.0) L Mean Corpuscular Hemoglobin Concent 30.6 G/DL (32.0-36.0) L Red Cell Distribution Width 13.3 % (11.6-14.8) Platelet Count 191 K/UL (150-450) Mean Platelet Volume 6.1 FL (6.5-10.1) L Neutrophils (%) (Auto) 60.5 % (45.0-75.0) Lymphocytes (%) (Auto) 23.7 % (20.0-45.0) Monocytes (%) (Auto) 5.4 % (1.0-10.0) Eosinophils (%) (Auto) 9.3 % (0.0-3.0) H Basophils (%) (Auto) 1.0 % (0.0-2.0) Sodium Level 144 MMOL/L (136-145) Potassium Level 4.3 MMOL/L (3.5-5.1) Chloride Level 109 MMOL/L (98-107) H Carbon Dioxide Level 26 MMOL/L (21-32) Anion Gap 9 mmol/L (5-15) Blood Urea Nitrogen 25 mg/dL (7-18) H Creatinine 1.4 MG/DL (0.55-1.30) H Estimate Glomerular Filtration Rate mL/min (>60) Glucose Level 83 MG/DL (74-106) Calcium Level 8.4 MG/DL (8.5-10.1) L Current Medications Medications (Trade) Dose Ordered Sig/Charlene Route PRN Reason Start Time Stop Time Status Last Admin Dose Admin Amlodipine Besylate (Norvasc) 5 mg DAILY ORAL 11/02/18 09:00 12/02/18 08:59 11/04/18 08:36 Aspirin (ASA) 81 mg DAILY ORAL 11/02/18 09:00 12/02/18 08:59 11/04/18 08:35 Citalopram Hydrobromide (celeXA) 40 mg BEDTIME ORAL 11/01/18 21:00 12/01/18 20:59 11/03/18 21:01 Dextrose (Dextrose 50%) 25 ml Q30M PRN IV Hypoglycemia 11/01/18 17:30 12/01/18 17:29 Dextrose (Dextrose 50%) 50 ml Q30M PRN IV Hypoglycemia 11/01/18 17:30 12/01/18 17:29 Enalapril Maleate (Vasotec) 20 mg DAILY ORAL 11/02/18 09:00 12/02/18 08:59 11/04/18 08:36 Ertapenem 1 gm/ Sodium Chloride 55 ml @ 110 mls/hr Q24H IVPB 11/02/18 20:00 11/07/18 19:59 11/03/18 21:01 Heparin Sodium (Porcine) (Heparin 5000 units/ml) 5,000 units EVERY 12 HOURS SUBQ 11/01/18 21:00 12/01/18 20:59 11/04/18 08:38 Insulin Aspart (NovoLOG) BEFORE MEALS AND HS SUBQ 11/01/18 21:00 12/01/18 20:59 11/04/18 06:13 Multivitamins Therapeutic (Therapeutic Multivitamin) 1 ea DAILY ORAL 11/02/18 09:00 12/02/18 08:59 11/04/18 08:35 Oxybutynin Chloride (Ditropan) 2.5 mg TWICE A DAY ORAL 11/01/18 18:00 12/01/18 17:59 11/04/18 08:36 Sodium Chloride 1,000 ml @ 50 mls/hr Q20H IV 11/01/18 17:48 12/01/18 17:47 11/03/18 09:48 Labs Test 11/02/18 12:10 11/03/18 06:44 Random Vancomycin Level 11.5 ug/mL White Blood Count 6.2 K/UL (4.8-10.8) Red Blood Count 4.05 M/UL (4.70-6.10) Hemoglobin 9.3 G/DL (14.2-18.0) Hematocrit 30.5 % (42.0-52.0) Mean Corpuscular Volume 75 FL (80-99) Mean Corpuscular Hemoglobin 23.0 PG (27.0-31.0) Mean Corpuscular Hemoglobin Concent 30.6 G/DL (32.0-36.0) Red Cell Distribution Width 13.3 % (11.6-14.8) Platelet Count 191 K/UL (150-450) Mean Platelet Volume 6.1 FL (6.5-10.1) Neutrophils (%) (Auto) 60.5 % (45.0-75.0) Lymphocytes (%) (Auto) 23.7 % (20.0-45.0) Monocytes (%) (Auto) 5.4 % (1.0-10.0) Eosinophils (%) (Auto) 9.3 % (0.0-3.0) Basophils (%) (Auto) 1.0 % (0.0-2.0) Sodium Level 144 MMOL/L (136-145) Potassium Level 4.3 MMOL/L (3.5-5.1) Chloride Level 109 MMOL/L (98-107) Carbon Dioxide Level 26 MMOL/L (21-32) Anion Gap 9 mmol/L (5-15) Blood Urea Nitrogen 25 mg/dL (7-18) Creatinine 1.4 MG/DL (0.55-1.30) Estimat Glomerular Filtration Rate mL/min (>60) Glucose Level 83 MG/DL (74-106) Calcium Level 8.4 MG/DL (8.5-10.1) Height (Feet): 5 Height (Inches): 6.00 Weight (Pounds): 160 Objective exam stable 24f SP tube in place, grossly yellow urine BradyshadCamilo MD Nov 04, 2018 09:16
--- NOTE | 2018-11-04 11:35 | NUR ---
NURSE NOTES: Called [facility] and spoke to Kajal JOINER that patient will transfer to facility today. Family member notified.
[2018-11-04 12:00] VITALS: BP 138/79
[2018-11-04] MEDS ORDERED: INVANZ1 G1 IM (12:09)
[2018-11-04] MEDS ORDERED: ERTAPENEM1 GM IJ (12:09)
[2018-11-04] MEDS ORDERED: OLANZAPINE2.5 MG ORAL (12:12)
--- NOTE | 2018-11-04 12:30 | NUR ---
NURSE NOTES: Patient discharged with [facility] ([id number]) in stable condition. Discharge instruction and belonging given to ambulance personnel. Per patient's son: lower denture and shoes at old facility. IV and ID removed.
--- NOTE | 2018-11-04 13:51 | Infectious Diseases Prog Note ---
Assessment/Plan Problems: (1) Catheter-associated urinary tract infection Assessment & Plan: due to MDR proteus mirabilis sensitive to ertapenem . will continue ertapenem treatment for 10 days total . (2) Altered level of consciousness Assessment & Plan: improving , possible due to CAUTI, continue antibiotics treatment , encourage hydration (3) ARF (acute renal failure) Assessment & Plan: suspect dehydration, improving with hydration (4) Suprapubic catheter dysfunction Assessment & Plan: his catheter was changed by urology . continue local catheter care as needed . follow up with urology Assessment/Plan time of stamp doesn't reflect patient was seen Subjective ROS Limited/Unobtainable: Yes Allergies: Coded Allergies: No Known Allergies (Unverified , 11/26/14) Subjective He was more awake , and alert, more verbal, afebrile, no cough or SOB, no diarrhea . Objective Vital Signs Last 24 Hour Vital Signs Date Time Temp Pulse Resp B/P (MAP) Pulse Ox O2 Delivery O2 Flow Rate FiO2 11/04/18 12:00 98.0 101 19 138/79 (98) 97 11/04/18 09:00 Room Air 11/04/18 08:36 140/76 11/04/18 08:36 99 140/76 11/04/18 08:00 97.9 99 20 140/76 (97) 96 11/04/18 04:04 97.8 101 22 149/73 (98) 11/04/18 00:37 97.6 61 19 124/58 (80) 11/03/18 21:00 Room Air 11/03/18 20:00 98.5 65 18 128/73 (91) 11/03/18 16:00 97.8 69 18 121/67 (85) 95 Height (Feet): 5 Height (Inches): 6.00 Weight (Pounds): 160 General Appearance: WD/WN, no acute distress HEENT: normocephalic, atraumatic, anicteric, mucous membranes moist, PERRL, EOMI, pharynx normal, supple, no JVD Respiratory/Chest: chest wall non-tender, lungs clear, normal breath sounds, no respiratory distress, no accessory muscle use Cardiovascular: normal peripheral pulses, normal rate, regular rhythm, no gallop/murmur, no JVD Abdomen: normal bowel sounds, soft, non tender, no organomegaly, non distended , no mass, no scars Extremities: no cyanosis, no clubbing Skin: no rash, no lesions 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 Resulted Frida Billings M.D. Nov 04, 2018 13:51
--- NOTE | 2018-11-06 07:50 | Discharge Summary ---
Discharge Summary Discharge Summary _ DATE OF ADMISSION: 11/01/2018 DATE OF DISCHARGE: 11/04/2018 DISCHARGED BY: Dr. Loving REASON FOR ADMISSION: 87 years old male, resident of nursing home facility, with past medical history of hypertension, diabetes mellitus, dementia, history of TIA, was sent for evaluation to emergency department due to generalized weakness.. Upon evaluation vital signs were stable. Laboratory work-up revealed no leukocytosis, hemoglobin 10.4, hematocrit 24.1, platelet count 223. Sodium 140, potassium 5.0, BUN 29,. Creatinine 1.5 glucose 145. Lactic acid 3.9. Troponin negative. CK 49. Urinalysis revealed +3 protein, +4 blood , pyuria, +3 leukocyte esterase and few bacteria, many crystals and amorphous sediments. EKG revealed normal sinus rhythm, no acute ischemic changes. Chest x-ray revealed no acute cardiopulmonary pathology. Physical examination revealed a leaking suprapubic catheter. Patient subsequently was admitted for further management . CONSULTANTS: ID specialist Dr. Billings Urologist Dr. Mast [facility] COURSE: Patient admitted to medical surgical floor. Patient started on the IV hydration and empiric antibiotic. ID specialist closely followed. Urine culture revealed Proteus mirabilis ESBL. Blood cultures were negative. Antibiotic regimen changed as per ID recommendation. No fever, no leukocytosis Per ID recommendation, continue antibiotics for total of 10 days treatment. Urology seen and evaluated patient for leaking suprapubic catheter. Suprapubic catheter was changed at the bedside Patient with history of chronic urinary retention. Urologist recommended hand irrigation as needed. Patient experienced persistent leakage of urine around suprapubic catheter insertion site. Leakage presumed secondary to bladder spasms Condition was discussed with patient's son. Per urologist, patient was not a candidate for any type of surgery on the side. Urologist recommended to continue anticholinergic and can up- titrate dose as tolerated. Local catheter care provided. Change catheter periodically as directed. Renal parameters and electrolytes were closely monitored, electrolytes corrected as needed and nephrotoxins were avoided. Creatinine from 1.5 down to 1.4, BUN from 29 down to 25. Patient likely had a chronic kidney disease as well. Blood pressure was managed with calcium channel poncho and TAMARA inhibitor. Antiplatelet therapy with aspirin continued. DVT prophylaxis provided. Home medication resumed. Blood sugar was managed with sliding scale of insulin. Fall precaution maintained. Patient was working with physical therapist. 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 DISCHARGE INSTRUCTIONS: Patient was discharged to the nursing home facility. Follow up with medical doctor at the facility. I have been assigned to dictate discharge summary for this account. I was not involved in the patient's management. Paige Rai NP Nov 06, 2018 07:50
== END 2018-11-04 12:40 | DRG 699 ==
LOC: EDUNIT# 12:37 → EDBD 12:37 → EMR 13:25 → 4E 15:12 → EDBEDREQ 16:07
DX: T83.510A Infection and inflammatory reaction due to cystostomy catheter, initial encounter (principal); E87.2 Acidosis; N17.9 Acute kidney failure, unspecified; N39.0 Urinary tract infection, site not specified; T83.89XA Other specified complication of genitourinary prosthetic devices, implants and grafts, initial encounter; Y83.3 Surgical operation with formation of external stoma as the cause of abnormal reaction of the patient, or of later complication, without mention of misadventure at the time of the procedure; T83.511A Infection and inflammatory reaction due to indwelling urethral catheter, initial encounter; B96.4 Proteus (mirabilis) (morganii) as the cause of diseases classified elsewhere; Z16.12 Extended spectrum beta lactamase (ESBL) resistance; I12.9 Hypertensive chronic kidney disease with stage 1 through stage 4 chronic kidney disease, or unspecified chronic kidney disease; E11.22 Type 2 diabetes mellitus with diabetic chronic kidney disease; N18.9 Chronic kidney disease, unspecified; N31.9 Neuromuscular dysfunction of bladder, unspecified; N40.1 Benign prostatic hyperplasia with lower urinary tract symptoms; R33.8 Other retention of urine; Z95.0 Presence of cardiac pacemaker; F32.9 Major depressive disorder, single episode, unspecified; E86.0 Dehydration
CPT/HCPCS: 36415; 71045; 80048; 80053; 80202; 81003; 82550; 82553; 82962; 83605; 84484; 85025; 87040; 87081; 87086; 87181; 93005; 96361; 96365; 99285; J1815

== ENCOUNTER 2018-12-26 17:52 | Inpatient (IN) | payer MEDICARE, MEDICAID ==
[~2018-12-26] VITALS: Ht 160 cm; Wt 57.6 kg
[~2018-12-26 17:52] MED LIST changes: +ERTAPENEM1 GM IJ; +MULTIVITAMINS1 EAC2 ORAL; +NOVOLOG100 UNITS1 SUBQ
[2018-12-26 17:54] VITALS: BP 112/56
--- NOTE | 2018-12-26 17:54 | NUR ---
ED Nurse Note: brought by [facility] from [facility] due to diarrhea and weakness x 2 days.
[2018-12-26] MEDS ORDERED: Isovue-300 100ml vial INJ PRN (18:00)
--- NOTE | 2018-12-26 18:20 | NUR ---
ED Nurse Note: XRAY COMPLETE
--- NOTE | 2018-12-26 19:15 | NUR ---
ED Nurse Note: INFORMED ERMD THAT PT HAS SUPRAPUBIC CATH
[2018-12-26 19:17] LABS: BASOPHILS % (AUTO) 1.2 % (0.0-2.0); EOSINOPHILS % (AUTO) 7.7 % (0.0-3.0); HEMATOCRIT 30.7 % (42.0-52.0); HEMOGLOBIN 9.5 G/DL (14.2-18.0); LYMPHOCYTES % (AUTO) 19.8 % (20.0-45.0); MEAN CORPUSCULAR VOLUME 74 FL (80-99); MONOCYTES % (AUTO) 7.4 % (1.0-10.0); NEUTROPHILS % (AUTO) 63.9 % (45.0-75.0); PLATELET COUNT 210 K/UL (150-450); RED BLOOD COUNT 4.14 M/UL (4.70-6.10); WHITE BLOOD COUNT 8.1 K/UL (4.8-10.8)
[2018-12-26 19:21] LABS: ANION GAP 11 mmol/L (5-15); BLOOD UREA NITROGEN 32 mg/dL (7-18); CALCIUM 9.1 MG/DL (8.5-10.1); CARBON DIOXIDE 24 MMOL/L (21-32); CHLORIDE 107 MMOL/L (98-107); CREATININE 1.6 MG/DL (0.55-1.30); POTASSIUM 4.1 MMOL/L (3.5-5.1); SODIUM 142 MMOL/L (136-145)
[2018-12-26 19:30] LABS: ALANINE AMINOTRANSFERASE 11 U/L (12-78); ALBUMIN 3.4 G/DL (3.4-5.0); ALBUMIN/GLOBULIN RATIO 1.4 (1.0-2.7); ALKALINE PHOSPHATASE 59 U/L (46-116); ASPARTATE AMINO TRANSFERASE 14 U/L (15-37); BILIRUBIN,TOTAL 0.6 MG/DL (0.2-1.0); CREATINE KINASE 37 U/L (26-308)
--- NOTE | 2018-12-26 19:35 | NUR ---
ED Nurse Note: [facility] AT BEDSIDE.
--- NOTE | 2018-12-26 19:43 | Emergency Room Report ---
History of Present Illness General Chief Complaint: Diarrhea Source: Patient, Medical Record, EMS Present Illness HPI Patient presents with diarrhea. He has a history of dementia and is unable to give much history. When asked if he has pain he says no. He has a suprapubic catheter. According to his granddaughter who is a surgeon at [facility] he has a history of recurrent and resistant urinary tract infections with the suprapubic catheter. 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 Probable neurogenic bladder History of BPH Diabetes mellitus type 2 Hypertension Sick sinus syndrome, status post pacemaker placement Depression Allergies: Coded Allergies: No Known Allergies (Unverified , 11/26/14) Patient History Limited by: medical condition Past Medical History: see triage record, old chart reviewed Past Surgical History: other - Suprapubic catheter Social History: Denies: smoking Social History Narrative snf facility Reviewed Nursing Documentation: PMH: Agreed; PSxH: Agreed Nursing Documentation-PMH Past Medical History: No History, Except For Hx Cardiac Problems: Yes Hx Hypertension: Yes Hx Diabetes: Yes Hx Cancer: No Hx Gastrointestinal Problems: No Hx Neurological Problems: Yes Hx Transient Ischemic Attacks: Yes Hx Dementia: Yes Review of Systems All Other Systems: limited Physical Exam Vital Signs Date Time Temp Pulse Resp B/P (MAP) Pulse Ox O2 Delivery O2 Flow Rate FiO2 12/26/18 17:49 97.5 62 16 112/56 (74) 98 Room Air Sp02 EP Interpretation: reviewed, normal General Appearance: no apparent distress, thin, Chronically Ill Head: normocephalic Eyes: bilateral eye normal inspection, bilateral eye PERRL ENT: moist mucus membranes Neck: supple Respiratory: lungs clear, normal breath sounds Cardiovascular #1: regular rate, rhythm Cardiovascular #2: 2+ radial (R) Gastrointestinal: normal inspection, normal bowel sounds, no mass, non- distended, no rebound, guarding - Minimal, tenderness - Diffuse Genitourinary: other Musculoskeletal: back normal, normal range of motion, no calf tenderness Neurologic: alert, cv tech III-XII nml as tested, motor strength/tone normal, DTRs symmetric, sensory intact, oriented - X1 Psychiatric: depressed affect, other - Poor recent memory Skin: no rash Medical Decision Making Diagnostic Impression: Primary Impression: Abdominal pain Qualified Codes: R10.84 - Generalized abdominal pain Additional Impressions: Renal insufficiency UTI (urinary tract infection) Qualified Codes: T83.510A - Infection and inflammatory reaction due to cystostomy catheter, initial encounter; N39.0 - Urinary tract infection, site not specified Impaction of colon Dementia Qualified Codes: F03.90 - Unspecified dementia without behavioral disturbance ER Course Patient presents with apparent diarrhea. Complex patient has he has dementia and is unable to give history. Based on exam differential includes UTI, small bowel obstruction, impaction, diverticulitis amongst others. Evaluation with EKG, chest x-ray, abdominal film, CT abdomen and pelvis and labs. Treatment with IV hydration. EKG without injury. Chest x-ray no infiltrates. Abdomen film with increased fecal load. Labs with normal white count but anemia. Renal insufficiency, pyuria. Able to tolerate oral contrast. Due to elevated creatinine IV contrast canceled. CT with evidence of fecal impaction. Rocephin begun. IV hydration continued. Repeat abdominal exam with mild improvement. Discussed with Dr. Cedeno and grand daughter. Patient admitted to medical floor. Laboratory Tests Test 12/26/18 18:25 12/26/18 20:40 White Blood Count 8.1 K/UL (4.8-10.8) Red Blood Count 4.14 M/UL (4.70-6.10) L Hemoglobin 9.5 G/DL (14.2-18.0) L Hematocrit 30.7 % (42.0-52.0) L Mean Corpuscular Volume 74 FL (80-99) L Mean Corpuscular Hemoglobin 23.0 PG (27.0-31.0) L Mean Corpuscular Hemoglobin Concent 31.1 G/DL (32.0-36.0) L Red Cell Distribution Width 13.0 % (11.6-14.8) Platelet Count 210 K/UL (150-450) Mean Platelet Volume 5.8 FL (6.5-10.1) L Neutrophils (%) (Auto) 63.9 % (45.0-75.0) Lymphocytes (%) (Auto) 19.8 % (20.0-45.0) L Monocytes (%) (Auto) 7.4 % (1.0-10.0) Eosinophils (%) (Auto) 7.7 % (0.0-3.0) H Basophils (%) (Auto) 1.2 % (0.0-2.0) Prothrombin Time 11.1 SEC (9.30-11.50) Prothrombin Time INR 1.0 (0.9-1.1) PTT 26 SEC (23-33) Sodium Level 142 MMOL/L (136-145) Potassium Level 4.1 MMOL/L (3.5-5.1) Chloride Level 107 MMOL/L (98-107) Carbon Dioxide Level 24 MMOL/L (21-32) Anion Gap 11 mmol/L (5-15) Blood Urea Nitrogen 32 mg/dL (7-18) H Creatinine 1.6 MG/DL (0.55-1.30) H Estimate Glomerular Filtration Rate mL/min (>60) Glucose Level 117 MG/DL (74-106) H Calcium Level 9.1 MG/DL (8.5-10.1) Total Bilirubin 0.6 MG/DL (0.2-1.0) Aspartate Amino Transferase (AST) 14 U/L (15-37) L Alanine Aminotransferase (ALT) 11 U/L (12-78) L Alkaline Phosphatase 59 U/L (46-116) Total Creatine Kinase 37 U/L (26-308) Troponin I 0.002 ng/mL (0.000-0.056) Total Protein 5.9 G/DL (6.4-8.2) L Albumin 3.4 G/DL (3.4-5.0) Globulin 2.5 g/dL Albumin/Globulin Ratio 1.4 (1.0-2.7) Lipase 173 U/L (73-393) Urine Color Pale yellow Urine Appearance Clear Urine pH 9 (4.5-8.0) Urine Specific [place] 1.010 (1.005-1.035) Urine Protein 2+ (NEGATIVE) H Urine Glucose (UA) Negative (NEGATIVE) Urine Ketones Negative (NEGATIVE) Urine Blood 3+ (NEGATIVE) H Urine Nitrite Negative (NEGATIVE) Urine Bilirubin Negative (NEGATIVE) Urine Urobilinogen Normal MG/DL (0.0-1.0) Urine Leukocyte Esterase 3+ (NEGATIVE) H Urine RBC 5-10 /HPF (0 - 0) H Urine WBC 10-15 /HPF (0 - 0) H Urine Squamous Epithelial Cells None /LPF (NONE/OCC) Urine Bacteria Moderate /HPF (NONE) H EKG Diagnostic Results Rate: normal Rhythm: NSR ST Segments: no acute changes Rhythm Strip Diag. Results EP Interpretation: yes Rhythm: NSR, no PVC's, no ectopy Chest X-Ray Diagnostic Results Chest X-Ray Diagnostic Results : Chest X-Ray Ordered: Yes # of Views/Limited/Complete: 1 View Indication: Other EP Interpretation: Yes Interpretation: no consolidation, no effusion, no pneumothorax, other - pacer Impression: Other Electronically Signed by: Electronically signed by Jurgen Grover MD Other X-Ray Diagnostic Results Other X-Ray Diagnostic Results : X-Ray ordered: Demented # of Views/Limited Vs Complete: 2 View Indication: Pain EP Interpretation: Yes Interpretation: nonspecific bowel gas, no sbo, other - Impaction Impression: Other Electronically Signed by: Electronically signed by Jurgen Grover MD CT/MRI/US Diagnostic Results CT/MRI/US Diagnostic Results : Imaging Test Ordered: abd pelvis Impression impaction, effusions Last Vital Signs Date Time Temp Pulse Resp B/P (MAP) Pulse Ox O2 Delivery O2 Flow Rate FiO2 12/27/18 04:00 97.1 68 18 139/65 (89) 95 12/26/18 23:06 Room Air Status: improved Disposition: ADMITTED INPATIENT Condition: Serious Referrals: Suad Loving MD (PCP) Jurgen Grover MD Dec 26, 2018 19:43
[2018-12-26 19:46] VITALS: BP 140/64
--- NOTE | 2018-12-26 20:30 | NUR ---
ED Nurse Note: pt was defecated and was changed pt resting in bed vss.
[2018-12-26 21:12] LABS: APPEARANCE,URINE CLEAR; BILIRUBIN, URINE NEGATIVE (NEGATIVE); COLOR,URINE PALE YELLOW; GLUCOSE, URINE (UA) NEGATIVE (NEGATIVE); KETONES,URINE NEGATIVE (NEGATIVE); LEUKOCYTE ESTERASE ,URINE 3+ (NEGATIVE); NITRITE,URINE NEGATIVE (NEGATIVE); PH,URINE 9 (4.5-8.0); PROTEIN,URINE 2+ (NEGATIVE); UROBILINOGEN,URINE NORMAL MG/DL (0.0-1.0)
--- NOTE | 2018-12-26 21:18 | NUR ---
ED Nurse Note: pt left for CT
--- NOTE | 2018-12-26 21:30 | NUR ---
ED Nurse Note: pt returned from ct
[2018-12-26 22:11] VITALS: BP 113/95
--- NOTE | 2018-12-26 22:34 | NUR ---
ED Nurse Note: TELEPHONE REPORT GIVEN TO RHYS ROBISON
--- NOTE | 2018-12-26 22:50 | NUR ---
ED Nurse Note: pt was redress and changed due self defecation. pt has been sent up with lexy currie. pt is aox1 on room air. SR, VSS. pt belongings sent with pt.
--- NOTE | 2018-12-26 23:00 | NUR ---
NURSE NOTES: Admitted patient awake,verbal,follows simple command,moved his bowel,cleansed,gown and linen changed.
[2018-12-26 23:47] VITALS: BP 129/55
[2018-12-27] MEDS ORDERED: LORazepam 0.5mg tab ORAL PRN (00:45)
[2018-12-27] MEDS ORDERED: Loperamide 2mg cap ORAL PRN (00:45)
[2018-12-27] MEDS ORDERED: Ertapenem 0.5 GM in NS 55 ML IVPB SCH (02:00)
[2018-12-27 04:00] VITALS: BP 139/65
[2018-12-27] MEDS: NovoLOG Insulin Flexpen SUBQ SCH ×4 (06:03→21:04)
[2018-12-27 07:13] LABS: ANION GAP 12 mmol/L (5-15); BLOOD UREA NITROGEN 27 mg/dL (7-18); CALCIUM 8.6 MG/DL (8.5-10.1); CARBON DIOXIDE 24 MMOL/L (21-32); CHLORIDE 108 MMOL/L (98-107); CREATININE 1.4 MG/DL (0.55-1.30); POTASSIUM 4.1 MMOL/L (3.5-5.1); SODIUM 143 MMOL/L (136-145)
--- NOTE | 2018-12-27 07:14 | NUR ---
HAND-OFF: Report given to Dawson Plata RN.
--- NOTE | 2018-12-27 07:15 | NUR ---
NURSE NOTES: Received pt in bed, sleeping. No s/s of distress/pain. L UA 20g intact and patent, running NS @ 50 ml. Bed in the lowest, locked, and alarm on. Call light within reach. Will continue to monitor
[2018-12-27 07:18] LABS: BASOPHILS % (AUTO) 0.8 % (0.0-2.0); EOSINOPHILS % (AUTO) 3.8 % (0.0-3.0); HEMOGLOBIN 10.1 G/DL (14.2-18.0); LYMPHOCYTES % (AUTO) 14.8 % (20.0-45.0); MEAN CORPUSCULAR VOLUME 74 FL (80-99); MONOCYTES % (AUTO) 4.9 % (1.0-10.0); NEUTROPHILS % (AUTO) 75.7 % (45.0-75.0); PLATELET COUNT 217 K/UL (150-450); RED BLOOD COUNT 4.33 M/UL (4.70-6.10); WHITE BLOOD COUNT 9.1 K/UL (4.8-10.8)
[2018-12-27 08:00] VITALS: BP 124/66
[2018-12-27] MEDS ORDERED: OLANZapine 2.5mg tab ORAL SCH (09:00)
[2018-12-27] MEDS: Oxybutynin 5mg tab ORAL SCH ×2 (09:19→17:38)
[2018-12-27] MEDS: Aspirin EC 81mg tab ORAL SCH (09:19)
--- NOTE | 2018-12-27 10:45 | Diagnostic Imaging Report ---
Indication: Abdominal pain Technique: Spiral acquisitions obtained through the abdomen and pelvis. Patient ingested oral contrast. No IV contrast utilized, per referring physician request.. Multiplanar reconstructions were generated. Total dose length product 853.7 mGycm. CTDIvol(s) 14.79 mGy. Dose reduction achieved using automated exposure control Comparison: 12/13/2015 Findings: The appendix is not clearly identified, but no findings to suggest acute appendicitis are evident. 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 Again demonstrated is eventration of left hemidiaphragm. The rectum is distended with feces, measures 9 cm transverse diameter by 11.6 cm AP diameter. There is some wall thickening of the rectal wall as well as slight infiltration of the perirectal fat. There is evidence of some stool incontinence. No small bowel distention or small bowel wall thickening. Ingested contrast has traversed most but not all of the small bowel. There is dilatation of the esophagus. There is apparent free communication of the distal esophagus with the gastric lumen. The duodenum and stomach are unremarkable. Again demonstrated is a lower pelvic central ventral hernia. Colon is no longer herniated into this, but the anterior one half of the bladder is within the hernia. There is a cystostomy tube, the balloon of which is within the herniated portion of the bladder. A small amount of fluid is seen within the hernia sac, less than on the prior study. Lack of IV contrast limits assessment of the solid organs. The liver, gallbladder, bile ducts, pancreas are unremarkable. Calcifications are seen within the spleen. The adrenals are unremarkable. The kidneys demonstrate bilateral subcentimeter low-attenuation lesions which are too small to characterize. Previously demonstrated left renal calculus is no longer evident. No ureteral calculi, hydronephrosis, or hydroureter demonstrated. No retroperitoneal or mesenteric mass or adenopathy. The common iliac arteries are ectatic but not frankly aneurysmal. No pelvic mass or adenopathy. There are probably decubitus changes of the lower gluteal region subcutaneous fat Trace pleural fluid is seen at the left lung base. Atelectatic changes are seen at both lung bases. The heart is enlarged, contains pacemaker wires. There is a small pericardial effusion which is much smaller than that demonstrated on the prior study. The bones demonstrate an L5 burst/compression fracture deformity which is new since the prior 2016 exam. Impression: There is rectal fecal impaction. Rectal wall thickening and infiltration of the perirectal fat suggest stroke oral colitis. Herniation of the anterior aspect of the bladder into a lower pelvic central ventral hernia. Cystostomy tube balloon is present within the herniated portion of the bladder. There is a small amount of fluid in the hernia sac which is decreased from the prior exam. This is nonspecific, could indicate a component of strangulation, however. Colon is no longer seen within the hernia Evidence of patulous lower esophageal sphincter with free reflux of contrast into dilated distal esophagus Probable decubitus changes of the bilateral lower gluteal region Cardiomegaly Pericardial effusion, decreased significantly from the previous 2016 exam L5 burst/compression fracture, age-indeterminate but new since prior 2016 exam Trace left pleural effusion Subcentimeter low-attenuation renal lesions, too small to characterize largely evident previously, most likely benign simple cysts. No further follow-up necessary Other findings as noted, including pacemaker, basilar pulmonary atelectatic changes, splenic granulomatous calcifications This agrees with the preliminary interpretation provided overnight by [facility] teleradiology service. The CT scanner at [facility] is accredited by the [employer] and the scans are performed using protocols designed to limit radiation exposure to as low as reasonably achievable to attain images of sufficient resolution adequate for diagnostic evaluation.
[2018-12-27 12:00] VITALS: BP 122/70
--- NOTE | 2018-12-27 12:03 | Diagnostic Imaging Report ---
Indication: Chest pain Technique: One view of the chest Comparison: 11/01/2018 Findings: There is some atelectasis at the left lung base. Lungs and pleural spaces are otherwise clear. There is a left chest bifocal pacemaker. The heart size is normal. The aorta is calcified. Impression: Left basilar atelectasis. No acute process otherwise
--- NOTE | 2018-12-27 12:04 | Diagnostic Imaging Report ---
Indication: Abdominal pain Technique: Supine view of the abdomen Comparison: 03/22/2017 Findings: Bowel gas pattern is unremarkable. No unusual masses or calcifications. There is distention of the rectum with feces and abundant stool in the left colon. Pacemaker leads are seen in the heart. There are abundant vascular calcifications Impression: Abundant colonic stool, correlate with any clinical history of constipation possible rectal fecal impaction No acute process otherwise
--- NOTE | 2018-12-27 14:45 | Infectious Diseases Prog Note ---
Assessment/Plan Problems: (1) Catheter-associated urinary tract infection Assessment & Plan: continue ertapenem pending culture, continue suprapubic catheter care (2) Diarrhea Assessment & Plan: with possible melena , send stool for occult blood, C diff toxin is negative , will send stool culture (3) ARF (acute renal failure) Assessment & Plan: suspect dehydration , continue to monitor renal function Subjective Allergies: Coded Allergies: No Known Allergies (Unverified , 11/26/14) Objective Vital Signs Last 24 Hour Vital Signs Date Time Temp Pulse Resp B/P (MAP) Pulse Ox O2 Delivery O2 Flow Rate FiO2 12/27/18 12:00 98.6 70 20 122/70 (87) 94 12/27/18 09:19 71 124/66 12/27/18 09:00 Room Air 12/27/18 08:00 98.1 71 20 124/66 (85) 96 12/27/18 04:00 97.1 68 18 139/65 (89) 95 12/26/18 23:47 98.1 66 17 129/55 (79) 96 12/26/18 23:06 Room Air 12/26/18 22:44 97.9 63 15 117/89 96 Room Air 12/26/18 22:11 97.7 63 17 113/95 95 Room Air 12/26/18 19:46 97.7 66 23 140/64 97 Room Air 12/26/18 17:54 97.5 69 16 112/56 98 Room Air 12/26/18 17:49 97.5 62 16 112/56 (74) 98 Room Air Height (Feet): 5 Height (Inches): 3.00 Weight (Pounds): 132 Microbiology Date/Time Source Procedure Growth Status 12/26/18 21:35 Stool Clostridium difficile Toxin Assay - Final Complete 12/26/18 22:30 Rectum Received Laboratory Tests Test 12/26/18 18:25 12/26/18 20:40 12/27/18 06:05 White Blood Count 8.1 K/UL (4.8-10.8) 9.1 K/UL (4.8-10.8) Red Blood Count 4.14 M/UL (4.70-6.10) L 4.33 M/UL (4.70-6.10) L Hemoglobin 9.5 G/DL (14.2-18.0) L 10.1 G/DL (14.2-18.0) L Hematocrit 30.7 % (42.0-52.0) L 32.0 % (42.0-52.0) L Mean Corpuscular Volume 74 FL (80-99) L 74 FL (80-99) L Mean Corpuscular Hemoglobin 23.0 PG (27.0-31.0) L 23.2 PG (27.0-31.0) L Mean Corpuscular Hemoglobin Concent 31.1 G/DL (32.0-36.0) L 31.4 G/DL (32.0-36.0) L Red Cell Distribution Width 13.0 % (11.6-14.8) 13.0 % (11.6-14.8) Platelet Count 210 K/UL (150-450) 217 K/UL (150-450) Mean Platelet Volume 5.8 FL (6.5-10.1) L 5.9 FL (6.5-10.1) L Neutrophils (%) (Auto) 63.9 % (45.0-75.0) 75.7 % (45.0-75.0) H Lymphocytes (%) (Auto) 19.8 % (20.0-45.0) L 14.8 % (20.0-45.0) L Monocytes (%) (Auto) 7.4 % (1.0-10.0) 4.9 % (1.0-10.0) Eosinophils (%) (Auto) 7.7 % (0.0-3.0) H 3.8 % (0.0-3.0) H Basophils (%) (Auto) 1.2 % (0.0-2.0) 0.8 % (0.0-2.0) Prothrombin Time 11.1 SEC (9.30-11.50) Prothromb Time International Ratio 1.0 (0.9-1.1) Activated Partial Thromboplast Time 26 SEC (23-33) Sodium Level 142 MMOL/L (136-145) 143 MMOL/L (136-145) Potassium Level 4.1 MMOL/L (3.5-5.1) 4.1 MMOL/L (3.5-5.1) Chloride Level 107 MMOL/L (98-107) 108 MMOL/L (98-107) H Carbon Dioxide Level 24 MMOL/L (21-32) 24 MMOL/L (21-32) Anion Gap 11 mmol/L (5-15) 12 mmol/L (5-15) Blood Urea Nitrogen 32 mg/dL (7-18) H 27 mg/dL (7-18) H Creatinine 1.6 MG/DL (0.55-1.30) H 1.4 MG/DL (0.55-1.30) H Estimat Glomerular Filtration Rate mL/min (>60) mL/min (>60) Glucose Level 117 MG/DL (74-106) H 128 MG/DL (74-106) H Calcium Level 9.1 MG/DL (8.5-10.1) 8.6 MG/DL (8.5-10.1) Total Bilirubin 0.6 MG/DL (0.2-1.0) Aspartate Amino Transf (AST/SGOT) 14 U/L (15-37) L Alanine Aminotransferase (ALT/SGPT) 11 U/L (12-78) L Alkaline Phosphatase 59 U/L (46-116) Total Creatine Kinase 37 U/L (26-308) Troponin I 0.002 ng/mL (0.000-0.056) Total Protein 5.9 G/DL (6.4-8.2) L Albumin 3.4 G/DL (3.4-5.0) Globulin 2.5 g/dL Albumin/Globulin Ratio 1.4 (1.0-2.7) Lipase 173 U/L (73-393) Urine Color Pale yellow Urine Appearance Clear Urine pH 9 (4.5-8.0) Urine Specific [place] 1.010 (1.005-1.035) Urine Protein 2+ (NEGATIVE) H Urine Glucose (UA) Negative (NEGATIVE) Urine Ketones Negative (NEGATIVE) Urine Blood 3+ (NEGATIVE) H Urine Nitrite Negative (NEGATIVE) Urine Bilirubin Negative (NEGATIVE) Urine Urobilinogen Normal MG/DL (0.0-1.0) Urine Leukocyte Esterase 3+ (NEGATIVE) H Urine RBC 5-10 /HPF (0 - 0) H Urine WBC 10-15 /HPF (0 - 0) H Urine Squamous Epithelial Cells None /LPF (NONE/OCC) Urine Bacteria Moderate /HPF (NONE) H Current Medications Medications (Trade) Dose Ordered Sig/Charlene Route PRN Reason Start Time Stop Time Status Last Admin Dose Admin Amlodipine Besylate (Norvasc) 5 mg DAILY ORAL 12/27/18 09:00 01/26/19 08:59 12/27/18 09:19 Aspirin (Ecotrin) 81 mg DAILY ORAL 12/27/18 09:00 01/26/19 08:59 12/27/18 09:19 Barium Sulfate (Readi-Cat 2) 450 ml NOW PRN ORAL Radiology Procedure 12/26/18 18:00 12/28/18 18:00 Citalopram Hydrobromide (celeXA) 40 mg QHS ORAL 12/27/18 21:00 01/26/19 20:59 Dextrose (Dextrose 50%) 25 ml Q30M PRN IV Hypoglycemia 12/27/18 00:45 01/26/19 00:44 Dextrose (Dextrose 50%) 50 ml Q30M PRN IV Hypoglycemia 12/27/18 00:45 01/26/19 00:44 Ertapenem 0.5 gm/ Sodium Chloride 55 ml @ 110 mls/hr Q24H IVPB 12/27/18 02:00 12/28/18 01:59 12/27/18 01:23 Insulin Aspart (NovoLOG) BEFORE MEALS AND HS SUBQ 12/27/18 06:30 01/26/19 06:29 12/27/18 11:57 Iopamidol (Isovue-300 100ml) 100 ml NOW PRN INJ Radiology Procedure 12/26/18 18:00 Lorazepam (Ativan) 0.5 mg BIDPRN PRN ORAL For Anxiety 12/27/18 00:45 01/03/19 00:44 Multivitamins (Multivitamins) 1 tab DAILY ORAL 12/27/18 09:00 01/26/19 08:59 12/27/18 09:19 Olanzapine (ZyPREXA) 2.5 mg DAILY ORAL 12/27/18 09:00 01/26/19 08:59 12/27/18 09:19 Oxybutynin Chloride (Ditropan) 2.5 mg BID ORAL 12/27/18 09:00 01/26/19 08:59 12/27/18 09:19 Sodium Chloride 1,000 ml @ 50 mls/hr Q20H IV 12/27/18 00:45 01/26/19 00:44 12/27/18 01:18 Frida Billings M.D. Dec 27, 2018 14:45
[2018-12-27 16:00] VITALS: BP 117/53
--- NOTE | 2018-12-27 17:32 | General Progress Note ---
Assessment/Plan Status: stable Assessment/Plan: 1. Catheter associated UTI - cont erthapenam 1 gm IV daily. ID consult done. 2. Diarrhea - C diff toxin negative for C diff. stool cx's pending. 3. HTN - cont enalopril 20 mg daily, norvasc 5 mg one po daily. 4. Depression - cont home celexa 40 mg one po qhs. 5. DM II - well controlled. on Tradjenta 2.5 mg po daily as outpatient. on SSS in hospital. 6. SSS s/p Pacemaker on last admission - stable. 7. Weakness - PT and OT eval and txt done. Subjective Date patient seen: Dec 27, 2018 Time patient seen: 05:20 Constitutional: Reports: weakness HEENT: Reports: no symptoms Cardiovascular: Reports: no symptoms Respiratory: Reports: no symptoms Gastrointestinal/Abdominal: Reports: no symptoms Genitourinary: Reports: other - leaky urine catheter Neurologic/Psychiatric: Reports: no symptoms Endocrine: Reports: no symptoms Hematologic/Lymphatic: Reports: no symptoms Allergies: Coded Allergies: No Known Allergies (Unverified , 11/26/14) Subjective This patient had 2 diarrhea episodes today. His c diff toxin negative. no fever or chills. no SOB or chest pain. His suprapubic cath is leaking. Objective Last 24 Hour Vital Signs Date Time Temp Pulse Resp B/P (MAP) Pulse Ox O2 Delivery O2 Flow Rate FiO2 12/27/18 16:00 98.1 64 20 117/53 (74) 94 12/27/18 12:00 98.6 70 20 122/70 (87) 94 12/27/18 09:19 71 124/66 12/27/18 09:00 Room Air 12/27/18 08:00 98.1 71 20 124/66 (85) 96 12/27/18 04:00 97.1 68 18 139/65 (89) 95 12/26/18 23:47 98.1 66 17 129/55 (79) 96 12/26/18 23:06 Room Air 12/26/18 22:44 97.9 63 15 117/89 96 Room Air 12/26/18 22:11 97.7 63 17 113/95 95 Room Air 12/26/18 19:46 97.7 66 23 140/64 97 Room Air 12/26/18 17:54 97.5 69 16 112/56 98 Room Air 12/26/18 17:49 97.5 62 16 112/56 (74) 98 Room Air Intake and Output 12/26/18 12/27/18 19:00 07:00 Intake Total 1305 ml Output Total 0 ml Balance 0 ml 1305 ml Intake IV Total 1305 ml Output Urine Total 0 ml # Voids 2 # Bowel Movements 1 Laboratory Tests 12/26/18 18:25: White Blood Count 8.1, Red Blood Count 4.14L, Hemoglobin 9.5L, Hematocrit 30.7L , Mean Corpuscular Volume 74L, Mean Corpuscular Hemoglobin 23.0L, Mean Corpuscular Hemoglobin Concent 31.1L, Red Cell Distribution Width 13.0, Platelet Count 210, Mean Platelet Volume 5.8L, Neutrophils (%) (Auto) 63.9, Lymphocytes (%) (Auto) 19.8L, Monocytes (%) (Auto) 7.4, Eosinophils (%) (Auto) 7.7H, Basophils (%) (Auto) 1.2, Prothrombin Time 11.1, Prothromb Time International Ratio 1.0, Activated Partial Thromboplast Time 26, Sodium Level 142, Potassium Level 4.1, Chloride Level 107, Carbon Dioxide Level 24, Anion Gap 11, Blood Urea Nitrogen 32H, Creatinine 1.6H, Estimat Glomerular Filtration Rate , Glucose Level 117H, Calcium Level 9.1, Total Bilirubin 0.6, Aspartate Amino Transf (AST/SGOT) 14L, Alanine Aminotransferase (ALT/SGPT) 11L, Alkaline Phosphatase 59, Total Creatine Kinase 37, Troponin I 0.002, Total Protein 5.9L, Albumin 3.4, Globulin 2.5, Albumin/Globulin Ratio 1.4, Lipase 173 12/26/18 20:40: Urine Color Pale yellow, Urine Appearance Clear, Urine pH 9, Urine Specific [place] 1.010, Urine Protein 2+H, Urine Glucose (UA) Negative, Urine Ketones Negative, Urine Blood 3+H, Urine Nitrite Negative, Urine Bilirubin Negative, Urine Urobilinogen Normal, Urine Leukocyte Esterase 3+H, Urine RBC 5-10H, Urine WBC 10-15H, Urine Squamous Epithelial Cells None, Urine Bacteria ModerateH 12/27/18 06:05: White Blood Count 9.1, Red Blood Count 4.33L, Hemoglobin 10.1L, Hematocrit 32.0L , Mean Corpuscular Volume 74L, Mean Corpuscular Hemoglobin 23.2L, Mean Corpuscular Hemoglobin Concent 31.4L, Red Cell Distribution Width 13.0, Platelet Count 217, Mean Platelet Volume 5.9L, Neutrophils (%) (Auto) 75.7H, Lymphocytes (%) (Auto) 14.8L, Monocytes (%) (Auto) 4.9, Eosinophils (%) (Auto) 3.8H, Basophils (%) (Auto) 0.8, Sodium Level 143, Potassium Level 4.1, Chloride Level 108H, Carbon Dioxide Level 24, Anion Gap 12, Blood Urea Nitrogen 27H, Creatinine 1.4H, Estimat Glomerular Filtration Rate , Glucose Level 128H, Calcium Level 8.6 Height (Feet): 5 Height (Inches): 3.00 Weight (Pounds): 132 General Appearance: no apparent distress, alert EENT: normal ENT inspection Neck: non-tender, supple Cardiovascular: normal rate, regular rhythm Respiratory/Chest: lungs clear, normal breath sounds Abdomen: normal bowel sounds, non tender, soft Extremities: normal range of motion, non-tender Edema: no edema noted Arm (L), no edema noted Arm (R), no edema noted Leg (L), no edema noted Leg (R), no edema noted Pedal (L), no edema noted Pedal (R), no edema noted Generalized Neurologic: alert, responsive Skin: warm/dry Lymphatic: normal anterior cervical (L), normal anterior cervical (R), normal posterior cervical (L), normal posterior cervical (R), normal submandibular (L) , normal submandibular (R), normal supraclavicular (L), normal supraclavicular ( R), normal axillary (L), normal axillary (R), normal inguinal (L), normal inguinal (R), normal other Suad Loving MD Dec 27, 2018 17:32
--- NOTE | 2018-12-27 19:07 | NUR ---
HAND-OFF: Report given to RHYS Gonzalez.
[2018-12-27] MEDS ORDERED: TRADJENTA5 MG PO (19:18)
[2018-12-27] MEDS ORDERED: CITALOPRAM HBR40 M1 ORAL (19:18)
[2018-12-27] MEDS ORDERED: TYLENOL EXTRA500 MG ORAL (19:18)
[2018-12-27] MEDS ORDERED: ACETAMINOPHEN325 M1 ORAL (19:18)
[2018-12-27] MEDS ORDERED: MULTIVITAMINS1 EAC8 ORAL (19:18)
[2018-12-27] MEDS ORDERED: DULCOLAX10 MG RC (19:18)
[2018-12-27] MEDS ORDERED: MILK OF MA2400 MG/10 ORAL (19:19)
[2018-12-27] MEDS ORDERED: ENEMA133 M1 RC (19:19)
[2018-12-27] MEDS ORDERED: ERTAPENEM1 GM IJ (19:21)
[2018-12-27] MEDS ORDERED: METRONIDAZOLE500 MG ORAL (19:23)
--- NOTE | 2018-12-27 19:33 | NUR ---
NURSE NOTES: Received patient comfortably sleeping. Kept clean and dry.
[2018-12-27 20:00] VITALS: BP 92/68
[2018-12-27] MEDS: Citalopram Hydrobromide 10mg Tab ORAL SCH (21:03)
--- NOTE | 2018-12-27 21:45 | History and Physical Report ---
DATE OF ADMISSION: 12/26/2018 HISTORY OF PRESENT ILLNESS: This is an 87-year-old male with history of dementia, who came in for complaint of diarrhea for the past two to three days at the assisted living. The patient also had diarrhea about 10 days ago and was started on Flagyl. C diff was sent, but apparently was not collected as outpatient. The patient was brought in because continuous diarrhea and weakness to be evaluated in the emergency room. In the emergency room, he was found to have urinary tract infection and diarrhea. He was admitted for treatment of catheter-associated with urinary tract infection with intravenous antibiotics. PAST MEDICAL HISTORY: Includes history of dementia, history of recurrent catheter-associated urinary tract infection, history of sick sinus syndrome status post pacemaker placement, history of BPH, diabetes type 2, hypertension, depression, history of acute kidney injury, dehydration in the past. ALLERGIES: No known drug allergies. PAST SURGICAL HISTORY: History of suprapubic catheter placement and history of pacemaker placement. SOCIAL HISTORY: No history of smoking, alcohol or drug use. FAMILY HISTORY: Noncontributory. REVIEW OF SYSTEMS: Negative except for history of present illness. PHYSICAL EXAMINATION: VITAL SIGNS: Includes vital signs of temperature 97.5, pulse 62, respirations 16, blood pressure 112/56, pulse oximetry 98% on room air. GENERAL APPEARANCE: Alert and oriented x2, no apparent distress HEENT: Normocephalic and normochromic. Extraocular muscles intact. Throat is clear. NECK: Supple. No lymphadenopathy CARDIOVASCULAR: Regular rate and rhythm. No murmur. No gallops. LUNGS: Lungs are clear to auscultation bilaterally. GASTROINTESTINAL: Soft, nontender. Mild tenderness. No guarding. No distention. Positive bowel sounds. GENITOURINARY: Suprapubic catheter in place, leaking slightly. NEUROLOGICAL: Alert and oriented x2. Responds to commands. SKIN: No rash. LABORATORY AND DIAGNOSTIC DATA: Include WBC 8.1, hemoglobin 9.5, hematocrit 30.7, platelet count 210. Sodium 142, potassium 4.1, chloride 107, bicarb 24, BUN 32, creatinine 1.6, glucose 117, AST 14, ALT 11, total protein 5.9, lipase 173. PT is 11.1, INR 1, PTT 26. UA showed +2 protein, +3 urine blood, and +3 leukocyte esterase, urine rbc's 5 to 10, urine wbc's 10 to 15, moderate bacteria. Abdominal x-ray showed abundant colonic stool, possible rectal impaction in abdominal x-ray. Abdominal CT also showed stool impaction. Chest x-ray showed left basilar atelectasis. IMPRESSION: 1. The patient is an 87-year-old male with history of catheter-associated urinary tract infection, who will be admitted for possible catheter-associated urinary tract infection with IV antibiotics. 2. Abdominal pain and diarrhea. We will send for stool C. difficile and stool cultures. 3. Fecal impaction. 4. Dementia. 5. Sick sinus syndrome status post pacemaker placement. 6. Hypertension. Continue home medications. 7. Diabetes mellitus type 2. We will continue sliding scale insulin as an inpatient and hold oral diabetic medication as outpatient. 8. Depression, we will continue patient the back home medication citalopram 40 mg at bedtime. The patient will be admitted for minimum of 2 night stay for diagnosis of catheter-associated urinary tract infection, abdominal pain with diarrhea probably due to fecal impaction. Suad Loving M.D. DR: Farhan JOB#: [id number] CC: EMILY
--- NOTE | 2018-12-27 22:15 | Consultation ---
DATE OF CONSULTATION: 12/26/2018 INFECTIOUS DISEASE CONSULTATION CONSULTING PHYSICIAN: Frida Billings M.D. REQUESTING PHYSICIAN: Suad Loving M.D. REASON FOR CONSULTATION: Catheter-associated urinary tract infection. Recommendation for antibiotics treatment with history of ESBL-producing bacteria.. HISTORY OF PRESENT ILLNESS: The patient is an 87-year-old Greek male with past medical history of neurogenic bladder, status post suprapubic Patricio catheter placement, dementia, recurrent UTI in the past with ESBL-producing bacteria, diabetes, and hypertension, was sent from skilled nursing facility for persistent diarrhea. It is unclear how many bowel movements he had at the [facility]. The patient had extensive workup in the emergency room, which revealed possible urinary tract infection. CT scan of the abdomen and pelvis showed stool impaction with rectal wall thickening and infiltration of the perirectal fat with herniation of the anterior aspect of the bladder into the lower pelvic central ventral hernia. The patient was admitted to the hospital was started on ertapenem and Infectious Disease consultation was requested for antimicrobial guidance and further care. As of note, the patient is demented and cannot provide any history. History was mainly obtained from the medical record and nursing staff. PAST MEDICAL HISTORY: Significant for cardiac disease, hypertension, diabetes, dementia, CVA, or TIA. PAST SURGICAL HISTORY: He had suprapubic catheter placement and pacemaker placement I believe. MEDICATIONS: He is currently on ertapenem 1 gram IV q.24 hours. For the rest of his medications, please refer to [facility]. ALLERGIES: He has no known drug allergies. SOCIAL HISTORY: The patient lives at a [facility] facility. No recent drugs, tobacco, or alcohol. REVIEW OF SYSTEMS: Unable to obtain at this point. The patient cannot provide any history. PHYSICAL EXAMINATION: VITAL SIGNS: Temperature 98.6, pulse 70, respirations 20, blood pressure 122/70, and saturation 94% on room air. GENERAL: An elderly male, lying in bed, awake, alert, responsive, not in acute distress. HEENT: Normocephalic and atraumatic. Pupils reactive to light equally. Pale sclerae. Dry oral mucosa. No exudate. NECK: Supple. No lymphadenopathy. CARDIOVASCULAR: Regular rate and rhythm. Paced. No murmur or gallop. LUNGS: Diminished breathing sounds at the bases. No wheezing. No rhonchi. ABDOMEN: Soft, nontender, and nondistended. Normal bowel sounds. No organomegaly. No ascites. Suprapubic catheter in place with urine leakage around the suprapubic catheter. Site looks okay. Not infected. GENITOURINARY: Normal inspection. EXTREMITY: No edema or cyanosis. No clubbing. SKIN: No rash. No hives. LABORATORY AND DIAGNOSTIC DATA: Labs showed white count of 9.1, hemoglobin of 10.1, and platelet count of 217,000. BUN of 27 and creatinine of 1.4. Urinalysis showed +3 blood, +3 leukocyte esterase, wbc 10 to 15, and moderate amount of bacteria in the urine. MICROBIOLOGY: Stool C. difficile toxin was negative. IMAGING: Chest x-ray showed left basilar atelectases, no acute process. Abdominal and pelvis CT scan showed rectal fecal impaction with rectal wall thickening and infiltration of the perirectal fat, herniation of the anterior aspect of the bladder into the lower pelvic central ventral hernia, cystostomy tube balloon is present within the herniated portion of the bladder. There is small amount of fluid in the hernia sac, which has decreased from the prior exam. ASSESSMENT AND RECOMMENDATION: 1. Catheter-associated urinary tract infection. We will continue ertapenem for now pending urine culture results. Continue local suprapubic catheter care. Follow up with Urology. 2. Diarrhea with possible melena. We will send stool culture. Stool C. diff has been negative so far. Recommend GI evaluation if occult blood in the stool is positive. 3. Acute renal failure, suspect dehydration related and possible melena. Continue IV fluid for hydration. Monitor renal function. 4. Dehydration. Continue hydration with IV fluids. Monitor electrolytes and renal function. Thank you for the consult. ID will continue to follow. Frida Billings M.D. DR: CAROLYN JOB#: [id number] CC:
[2018-12-27 23:52] VITALS: BP 94/65
[2018-12-28 04:00] VITALS: BP 95/64
[2018-12-28] MEDS: NovoLOG Insulin Flexpen SUBQ SCH ×4 (05:54→20:59)
[2018-12-28 06:28] LABS: ANION GAP 10 mmol/L (5-15); BASOPHILS % (AUTO) 1.1 % (0.0-2.0); BLOOD UREA NITROGEN 24 mg/dL (7-18); CALCIUM 8.4 MG/DL (8.5-10.1); CARBON DIOXIDE 23 MMOL/L (21-32); CHLORIDE 112 MMOL/L (98-107); CREATININE 1.4 MG/DL (0.55-1.30); EOSINOPHILS % (AUTO) 4.5 % (0.0-3.0); HEMOGLOBIN 10.5 G/DL (14.2-18.0); LYMPHOCYTES % (AUTO) 26.8 % (20.0-45.0); MEAN CORPUSCULAR VOLUME 75 FL (80-99); MONOCYTES % (AUTO) 6.7 % (1.0-10.0); NEUTROPHILS % (AUTO) 60.9 % (45.0-75.0); PLATELET COUNT 224 K/UL (150-450); POTASSIUM 4.1 MMOL/L (3.5-5.1); RED BLOOD COUNT 4.54 M/UL (4.70-6.10); SODIUM 145 MMOL/L (136-145); WHITE BLOOD COUNT 9.6 K/UL (4.8-10.8)
--- NOTE | 2018-12-28 07:25 | NUR ---
HAND-OFF: Report given to Dawson Plata RN.
--- NOTE | 2018-12-28 07:26 | NUR ---
NURSE NOTES: Received pt in bed, sleeping. Room air. No s/s of distress/pain. IV on L UA 20g intact and patent, running NS @ 50 cc/hr. Suprapubic cath is noted to be leaking and is aware. Side rails x2. Bed in the lowest, locked, and alarm on. Call light within reach. Will continue to monitor.
[2018-12-28 08:00] VITALS: BP 115/69
--- NOTE | 2018-12-28 09:05 | General Progress Note ---
Assessment/Plan Status: stable Assessment/Plan: 1. Catheter associated UTI - cont erthapenam 1 gm IV daily. ID consult done. Urine cx pending. 2. Diarrhea - C diff toxin negative for C diff. stool cx's pending. 3. HTN - cont enalopril 20 mg daily, norvasc 5 mg one po daily. 4. Depression - cont home celexa 40 mg one po qhs. 5. DM II - well controlled. on Tradjenta 2.5 mg po daily as outpatient. on SSS in hospital. 6. SSS s/p Pacemaker on last admission - stable. 7. Weakness - PT and OT eval and txt done. 8. Leaky Supra pubic cath - will consult Dr Shankar to change the cath. Subjective Date patient seen: Dec 28, 2018 Time patient seen: 09:00 Constitutional: Reports: no symptoms HEENT: Reports: no symptoms Cardiovascular: Reports: no symptoms Respiratory: Reports: no symptoms Gastrointestinal/Abdominal: Reports: diarrhea Genitourinary: Reports: no symptoms Neurologic/Psychiatric: Reports: no symptoms Endocrine: Reports: no symptoms Hematologic/Lymphatic: Reports: no symptoms Allergies: Coded Allergies: No Known Allergies (Unverified , 11/26/14) Subjective This morning he is awake and doing well. His c diff toxin negative. no fever or chills. no SOB or chest pain. His suprapubic cath is leaking. Objective Last 24 Hour Vital Signs Date Time Temp Pulse Resp B/P (MAP) Pulse Ox O2 Delivery O2 Flow Rate FiO2 12/28/18 08:00 97.6 62 18 115/69 (84) 91 12/28/18 04:00 98.7 64 16 95/64 (74) 92 12/27/18 23:52 98.8 55 16 94/65 (75) 92 12/27/18 20:07 Room Air 12/27/18 20:00 98.8 58 17 92/68 (76) 91 12/27/18 16:00 98.1 64 20 117/53 (74) 94 12/27/18 12:00 98.6 70 20 122/70 (87) 94 12/27/18 09:19 71 124/66 Intake and Output 12/27/18 12/28/18 19:00 07:00 Intake Total 930 ml 600 ml Output Total 650 ml Balance 930 ml -50 ml Intake Oral 480 ml IV Total 450 ml 600 ml Output Urine Total 650 ml # Voids 3 1 # Bowel Movements 3 1 Laboratory Tests 12/27/18 20:45: Stool Occult Blood [Pending] 12/28/18 05:35: White Blood Count 9.6, Red Blood Count 4.54L, Hemoglobin 10.5L, Hematocrit 34.0L , Mean Corpuscular Volume 75L, Mean Corpuscular Hemoglobin 23.1L, Mean Corpuscular Hemoglobin Concent 30.8L, Red Cell Distribution Width 13.0, Platelet Count 224, Mean Platelet Volume 5.8L, Neutrophils (%) (Auto) 60.9, Lymphocytes (%) (Auto) 26.8, Monocytes (%) (Auto) 6.7, Eosinophils (%) (Auto) 4.5H, Basophils (%) (Auto) 1.1, Sodium Level 145, Potassium Level 4.1, Chloride Level 112H, Carbon Dioxide Level 23, Anion Gap 10, Blood Urea Nitrogen 24H, Creatinine 1.4H, Estimat Glomerular Filtration Rate , Glucose Level 89, Calcium Level 8.4L Height (Feet): 5 Height (Inches): 3.00 Weight (Pounds): 127 General Appearance: no apparent distress, alert EENT: normal ENT inspection Neck: non-tender, supple Cardiovascular: normal rate, regular rhythm Respiratory/Chest: chest wall non-tender, lungs clear Abdomen: non tender, soft Extremities: non-tender Edema: no edema noted Arm (L), no edema noted Arm (R), no edema noted Leg (L), no edema noted Leg (R), no edema noted Pedal (L), no edema noted Pedal (R), no edema noted Generalized Neurologic: alert, responsive Skin: warm/dry Lymphatic: normal anterior cervical (L), normal anterior cervical (R), normal posterior cervical (L), normal posterior cervical (R), normal submandibular (L) , normal submandibular (R), normal supraclavicular (L), normal supraclavicular ( R), normal axillary (L), normal axillary (R), normal inguinal (L), normal inguinal (R), normal other Suad Loving MD Dec 28, 2018 09:05
[2018-12-28] MEDS: Oxybutynin 5mg tab ORAL SCH ×2 (09:23→17:44)
[2018-12-28] MEDS: Aspirin EC 81mg tab ORAL SCH (09:23)
--- NOTE | 2018-12-28 11:39 | NUR ---
P.T NOTE: P.T EVALUATION COMPLETED AND TX INITIATED. PLEASE REFER TO P.T EVALUATION FOR CURRENT FUNCTIONAL STATUS. PT IS ALERT ORIENTED TO SELF BUT NOT TO TIME, PLACE AND SITUATION HOWEVER FOLLOWS SIMPLE ONE STEP COMMANDS THRU CONSTANT VERBAL AND TACTILE CUES. PATIENT CURRENTLY REQUIRE MAX A X 1 FOR BED MOBILITY AND TRANSFER ACTIVITIES. PATIENT ABLE TO STAND USING THE FWW WITH MOD/MAX SUPPORT HOWEVER TOO WEAK AND UNABLE TO TAKE STEPS AT THIS TIME. SKILLED P.T SERVICE IS WARRANTED TO IMPROVE STRENGTH , BALANCE AND ENDURANCE TO IMPROVE MOBILITY INDEPENDENCE AND SAFETY. RECOMMEND RETURN TO SNF WITH CONTINUED REHAB INTERVENTION AT [facility]. THANK YOU FOR THIS REFERRAL.
[2018-12-28 12:00] VITALS: BP 124/79
--- NOTE | 2018-12-28 13:39 | NUR ---
CASE MANAGEMENT: INITIAL REVIEW 87 [facility]O [facility] CC: DIARRHEA PMHx: DEMENTIA. HTN. DM. SUPRAPUBIC CATHETER. TIA. SI:ABD PAIN T 97.6 HR 62 RR 18 B/P 115/69 SATS 91% ON RA CL 112 BUN 24 CR 1.4 CA 8.4 IS: NS BOLUS X1 PATIENT ADMITTED TO MED/SURG 12/26/2018 @ 1265 DCP: PATIENT TO BE DISCHARGED TO HOME ONCE MEDICALLY CLEARED. PLAN OF CARE: ID CONSULT Addendum: 12/28/18 at 1628 by Sofie Deras CM INTERQUAL
[2018-12-28] MEDS: Ertapenem 0.5 GM in NS 55 ML IVPB SCH (13:57)
--- NOTE | 2018-12-28 14:51 | NUR ---
ST NOTES: REFERRED FOR SWALLOW EVAL BY DR STEWARD, SEE FULL REPORT. 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 [facility] SOFT CHEW DIET AND THIN LIQUIDS WITH POOR INTAKE 25/50/60 NO OVERT ASP PER TRAVEL TICKETING REVIEWER BLANCA HAS UPPER DENTURES NO DENTITION/DENTURES ON BOTTOM, ROOM AIR. 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 GIVEN TSP PUREED, NEEDS 5 SECONDS TO SWALLOW FAIR LARYNGEAL ELEVATION, NO ORAL RESIDUE NOR OVERT ASPIRATION GIVEN TSP/CUP OF THIN AND NECTAR THICK LIQUIDS SLOWER, GROSSLY FUNCTIONAL SWALLOW WITH NO OVERT ASPIRATION BUT HAS SILENT ASPIRATION RISK GIVEN H/O CVA/TIA AND REDUCED ALERTNESS POOR AND VERY SLOW INTAKE. RECOMMENDATIONS: IF PO CONTINUES CONSIDER DOWNGRADE TO [facility] MOIST PUREED AND NECTAR THICK LIQUID FOR NOW WITH POSTED ASP PRECAUTIONS AND ONE TO ONE FEEDING SEND HIGH MAXWELL SUP TID AND COMPLETE CALORIE COUNT CONSIDER MOD BARIUM SWALLOW STUDY SKILLED DYSPHAGIA MANAGEMENT AND TX AND COG-COM EVAL/TX D/W RN AND TRAVEL TICKETING REVIEWER
[2018-12-28 16:00] VITALS: BP 120/58
--- NOTE | 2018-12-28 18:06 | GI Initial Consult Note ---
History of Present Illness General Date patient seen: Dec 28, 2018 Time patient seen: 18:05 Reason for Hospitalization: Diarrhea Referring physician: CAR Reason for Consultation: Diarrhea Present Illness HPI Patient presents with diarrhea. He has a history of dementia and is unable to give much history. When asked if he has pain he says no. He has a suprapubic catheter. According to his granddaughter who is a surgeon at [facility] [employer] he has a history of recurrent and resistant urinary tract infections with the suprapubic catheter. GI consulted for persistent diarrhea. ROS limited, patient with history of dementia. Patient seen, awake alert no apparent distress with no active signs or symptoms of nausea vomiting. Reports that the patient has been having persistent diarrhea. C. difficile was collected and negative. Abdominal pelvis CT shows a fecal impaction. Discussion with the RN reports diarrhea. Unknown history of endoscopic colonoscopy. Home Meds Reported Medications Magnesium Hydroxide* (MILK OF MAGNESIA*) 2,400 Mg/10 Ml Oral.susp, 30 ML ORAL DAILY PRN for Constipation, ML 12/27/18 Na Phos,M-B/Na Phos,Di-Ba (ENEMA) 133 Ml Enema, 133 ML RC PRN, EA IF BISACODYL INEFFECTIVE 12/27/18 Bisacodyl (DULCOLAX) 10 Mg Supp.rect, 10 MG RC PRN, SUPP 12/27/18 Acetaminophen* (TYLENOL EXTRA STRENGTH*) 500 Mg Tablet, 500 MG ORAL Q6H PRN for Mild Pain/Temp > 100.5, TAB 12/27/18 Acetaminophen* (TYLENOL EXTRA STRENGTH*) 500 Mg Tablet, 1000 MG ORAL Q6H PRN for Severe Pain (Pain Scale 7-10), TAB 12/27/18 Linagliptin (TRADJENTA) 5 Mg Tablet, 2.5 MG PO DAILY, TAB 12/27/18 Acetaminophen* (ACETAMINOPHEN 325MG TABLET*) 325 Mg Tablet, 650 MG ORAL Q6H PRN for Moderate Breakthru Pain (5-7), TAB 12/27/18 Multivitamin With Minerals (MULTIVITAMINS WITH MINERALS*) 1 Each Tablet, 1 TAB ORAL DAILY, TAB 12/27/18 Citalopram Hydrobromide* (CITALOPRAM HBR*) 40 Mg Tablet, 40 MG ORAL DAILY, TAB 12/27/18 Aspirin Ec* (ASPIRIN EC*) 81 Mg Tablet.dr, 81 MG ORAL DAILY, TAB 09/28/18 Oxybutynin Chloride (OXYBUTYNIN CHLORIDE) 5 Mg Tablet, 2.5 MG ORAL BID, #30 TAB 0 Refills 09/27/18 Enalapril Maleate* (ENALAPRIL MALEATE*) 20 Mg Tablet, 20 MG ORAL DAILY, TAB 04/02/18 Amlodipine Besylate (Norvasc) 5 Mg Tablet, 5 MG ORAL DAILY, TAB 12/13/15 Discontinued Reported Medications Ertapenem Sodium (Ertapenem) 1 Gm Vial, 1 GM IJ for 10 Days, VIAL 11/04/18 Multivitamins* (MULTIVITAMINS*) 1 Each Tablet, 1 TAB ORAL DAILY, TAB 0 Refills 11/02/18 Citalopram Hydrobromide* (CELEXA*) 20 Mg Tablet, 40 MG ORAL HS, TAB 11/26/14 Med list reviewed/reconciled: Yes Allergies: Coded Allergies: No Known Allergies (Unverified , 11/26/14) Patient History Limited by: medical condition History Provided By: Medical Record PM Narrative 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 Probable neurogenic bladder History of BPH Diabetes mellitus type 2 Hypertension Sick sinus syndrome, status post pacemaker placement Depression Allergies: Coded Allergies: No Known Allergies (Unverified , 11/26/14) Patient History Limited by: medical condition Past Medical History: see triage record, old chart reviewed Past Surgical History: other - Suprapubic catheter Social History: Denies: smoking Social History Narrative detention facility Reviewed Nursing Documentation: PMH: Agreed; PSxH: Agreed Nursing Documentation-[facility] Past Medical History: No History, Except For Hx Cardiac Problems: Yes Hx Hypertension: Yes Hx Diabetes: Yes Hx Cancer: No Hx Gastrointestinal Problems: No Hx Neurological Problems: Yes Hx Transient Ischemic Attacks: Yes Hx Dementia: Yes Review of Systems All Other Systems: limited Physical Exam Vital Signs Date Time Temp Pulse Resp B/P (MAP) Pulse Ox O2 Delivery O2 Flow Rate FiO2 12/26/18 17:49 97.5 62 16 112/56 (74) 98 Room Air Sp02 EP Interpretation: reviewed, normal Labs Laboratory Tests Test 12/27/18 20:45 12/28/18 05:35 Stool Occult Blood Negative (NEGATIVE) White Blood Count 9.6 K/UL (4.8-10.8) Red Blood Count 4.54 M/UL (4.70-6.10) L Hemoglobin 10.5 G/DL (14.2-18.0) L Hematocrit 34.0 % (42.0-52.0) L Mean Corpuscular Volume 75 FL (80-99) L Mean Corpuscular Hemoglobin 23.1 PG (27.0-31.0) L Mean Corpuscular Hemoglobin Concent 30.8 G/DL (32.0-36.0) L Red Cell Distribution Width 13.0 % (11.6-14.8) Platelet Count 224 K/UL (150-450) Mean Platelet Volume 5.8 FL (6.5-10.1) L Neutrophils (%) (Auto) 60.9 % (45.0-75.0) Lymphocytes (%) (Auto) 26.8 % (20.0-45.0) Monocytes (%) (Auto) 6.7 % (1.0-10.0) Eosinophils (%) (Auto) 4.5 % (0.0-3.0) H Basophils (%) (Auto) 1.1 % (0.0-2.0) Sodium Level 145 MMOL/L (136-145) Potassium Level 4.1 MMOL/L (3.5-5.1) Chloride Level 112 MMOL/L (98-107) H Carbon Dioxide Level 23 MMOL/L (21-32) Anion Gap 10 mmol/L (5-15) Blood Urea Nitrogen 24 mg/dL (7-18) H Creatinine 1.4 MG/DL (0.55-1.30) H Estimat Glomerular Filtration Rate mL/min (>60) Glucose Level 89 MG/DL (74-106) Calcium Level 8.4 MG/DL (8.5-10.1) L General Appearance: no apparent distress Head: normocephalic EENT: PERRL/EOMI, normal ENT inspection Neck: supple Respiratory: normal breath sounds, no respiratory distress Cardiovascular: normal rate Gastrointestinal: normal inspection, non tender, soft, normal bowel sounds, non -distended Rectal: deferred Genitourinary: deferred Musculoskeletal: normal inspection, back normal Neurologic: alert, responsive Skin: normal inspection, normal color, no rash, warm/dry, palpation normal, well hydrated Lymphatic: normal inspection, no adenopathy Current Medications Current Medications Medications (Trade) Dose Ordered Sig/Charlene Route PRN Reason Start Time Stop Time Status Last Admin Dose Admin Amlodipine Besylate (Norvasc) 5 mg DAILY ORAL 12/27/18 09:00 01/26/19 08:59 12/28/18 09:24 Aspirin (Ecotrin) 81 mg DAILY ORAL 12/27/18 09:00 01/26/19 08:59 12/28/18 09:23 Citalopram Hydrobromide (celeXA) 40 mg QHS ORAL 12/27/18 21:00 01/26/19 20:59 12/27/18 21:03 Dextrose (Dextrose 50%) 25 ml Q30M PRN IV Hypoglycemia 12/27/18 00:45 01/26/19 00:44 Dextrose (Dextrose 50%) 50 ml Q30M PRN IV Hypoglycemia 12/27/18 00:45 01/26/19 00:44 Ertapenem 0.5 gm/ Sodium Chloride 55 ml @ 110 mls/hr DAILY IVPB 12/28/18 13:00 01/02/19 12:59 12/28/18 13:57 Insulin Aspart (NovoLOG) BEFORE MEALS AND HS SUBQ 12/27/18 06:30 01/26/19 06:29 12/27/18 21:04 Iopamidol (Isovue-300 100ml) 100 ml NOW PRN INJ Radiology Procedure 12/26/18 18:00 Lorazepam (Ativan) 0.5 mg BIDPRN PRN ORAL For Anxiety 12/27/18 00:45 01/03/19 00:44 Multivitamins (Multivitamins) 1 tab DAILY ORAL 12/27/18 09:00 01/26/19 08:59 12/28/18 09:23 Oxybutynin Chloride (Ditropan) 2.5 mg BID ORAL 12/27/18 09:00 01/26/19 08:59 12/28/18 17:44 Sodium Chloride 1,000 ml @ 50 mls/hr Q20H IV 12/27/18 00:45 01/26/19 00:44 12/28/18 17:44 GI: Plan Problems: (1) Impaction of colon (2) Diarrhea Plan Abdominal pelvis CT reviewed noted with fecal impaction C. difficile negative We will digitally disimpact tomorrow if medical management fails Okay to advance diet as tolerated anemia work up OB stool r/o GI bleed monitor H&H, prn transfusions bowel regimen ppi fu labs Discussed with Dr. Rawls. Thank you for this patient referral, we will follow. The patient was seen and examined at bedside and all new and available data was reviewed in the patients chart. I agree with the above findings, impression and plan. (Patient seen earlier today. Signature stamp does not reflect patient encounter time.). - MD Ryanne DizaTucson Medical CenterRoscoe ALLEN Dec 28, 2018 18:06
--- NOTE | 2018-12-28 18:14 | Infectious Diseases Prog Note ---
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 recommend fosfomycin 3 gm po q week for 3-6 months after done with his current antibiotics treatment (2) Diarrhea Assessment & Plan: with possible melena , send stool for occult blood, C diff toxin is negative , will send stool culture (3) ARF (acute renal failure) Assessment & Plan: suspect dehydration , continue to monitor renal function Subjective ROS Limited/Unobtainable: Yes Allergies: Coded Allergies: No Known Allergies (Unverified , 11/26/14) Subjective he was up in bed comfortable, afebrile, urine is clear, no diarrhea , no nausea or vomiting Objective Vital Signs Last 24 Hour Vital Signs Date Time Temp Pulse Resp B/P (MAP) Pulse Ox O2 Delivery O2 Flow Rate FiO2 12/28/18 16:00 97.8 66 18 120/58 (78) 96 12/28/18 12:00 97.7 61 18 124/79 (94) 94 12/28/18 09:24 62 115/69 12/28/18 09:00 Room Air 12/28/18 08:00 97.6 62 18 115/69 (84) 91 12/28/18 04:00 98.7 64 16 95/64 (74) 92 12/27/18 23:52 98.8 55 16 94/65 (75) 92 12/27/18 20:07 Room Air 12/27/18 20:00 98.8 58 17 92/68 (76) 91 Height (Feet): 5 Height (Inches): 3.00 Weight (Pounds): 127 General Appearance: WD/WN, no acute distress HEENT: normocephalic, atraumatic, anicteric, mucous membranes moist, PERRL Respiratory/Chest: chest wall non-tender, lungs clear, normal breath sounds, no respiratory distress, no accessory muscle use Cardiovascular: normal peripheral pulses, normal rate, regular rhythm, no gallop/murmur, no JVD Abdomen: normal bowel sounds, soft, non tender, no organomegaly, non distended , no mass, no scars Extremities: no cyanosis, no clubbing Skin: no rash, no lesions, no ulcers Neurologic/Psychiatric: alert, responsive Lymphatic: no neck adenopathy, no groin adenopathy Musculoskeletal: normal muscle bulk, no effusion Microbiology Date/Time Source Procedure Growth Status 12/26/18 21:35 Stool Clostridium difficile Toxin Assay - Final Complete 12/26/18 20:40 Urine,Clean Catch Urine Culture - Preliminary Gram Negative Bacillus 1 Resulted 12/26/18 22:30 Rectum Received Laboratory Tests Test 12/27/18 20:45 12/28/18 05:35 Stool Occult Blood Negative (NEGATIVE) White Blood Count 9.6 K/UL (4.8-10.8) Red Blood Count 4.54 M/UL (4.70-6.10) L Hemoglobin 10.5 G/DL (14.2-18.0) L Hematocrit 34.0 % (42.0-52.0) L Mean Corpuscular Volume 75 FL (80-99) L Mean Corpuscular Hemoglobin 23.1 PG (27.0-31.0) L Mean Corpuscular Hemoglobin Concent 30.8 G/DL (32.0-36.0) L Red Cell Distribution Width 13.0 % (11.6-14.8) Platelet Count 224 K/UL (150-450) Mean Platelet Volume 5.8 FL (6.5-10.1) L Neutrophils (%) (Auto) 60.9 % (45.0-75.0) Lymphocytes (%) (Auto) 26.8 % (20.0-45.0) Monocytes (%) (Auto) 6.7 % (1.0-10.0) Eosinophils (%) (Auto) 4.5 % (0.0-3.0) H Basophils (%) (Auto) 1.1 % (0.0-2.0) Sodium Level 145 MMOL/L (136-145) Potassium Level 4.1 MMOL/L (3.5-5.1) Chloride Level 112 MMOL/L (98-107) H Carbon Dioxide Level 23 MMOL/L (21-32) Anion Gap 10 mmol/L (5-15) Blood Urea Nitrogen 24 mg/dL (7-18) H Creatinine 1.4 MG/DL (0.55-1.30) H Estimat Glomerular Filtration Rate mL/min (>60) Glucose Level 89 MG/DL (74-106) Calcium Level 8.4 MG/DL (8.5-10.1) L Current Medications Medications (Trade) Dose Ordered Sig/Charlene Route PRN Reason Start Time Stop Time Status Last Admin Dose Admin Amlodipine Besylate (Norvasc) 5 mg DAILY ORAL 12/27/18 09:00 01/26/19 08:59 12/28/18 09:24 Aspirin (Ecotrin) 81 mg DAILY ORAL 12/27/18 09:00 01/26/19 08:59 12/28/18 09:23 Citalopram Hydrobromide (celeXA) 40 mg QHS ORAL 12/27/18 21:00 01/26/19 20:59 12/27/18 21:03 Dextrose (Dextrose 50%) 25 ml Q30M PRN IV Hypoglycemia 12/27/18 00:45 01/26/19 00:44 Dextrose (Dextrose 50%) 50 ml Q30M PRN IV Hypoglycemia 12/27/18 00:45 01/26/19 00:44 Ertapenem 0.5 gm/ Sodium Chloride 55 ml @ 110 mls/hr DAILY IVPB 12/28/18 13:00 01/02/19 12:59 12/28/18 13:57 Insulin Aspart (NovoLOG) BEFORE MEALS AND HS SUBQ 12/27/18 06:30 01/26/19 06:29 12/27/18 21:04 Iopamidol (Isovue-300 100ml) 100 ml NOW PRN INJ Radiology Procedure 12/26/18 18:00 Lorazepam (Ativan) 0.5 mg BIDPRN PRN ORAL For Anxiety 12/27/18 00:45 01/03/19 00:44 Multivitamins (Multivitamins) 1 tab DAILY ORAL 12/27/18 09:00 01/26/19 08:59 12/28/18 09:23 Oxybutynin Chloride (Ditropan) 2.5 mg BID ORAL 12/27/18 09:00 01/26/19 08:59 12/28/18 17:44 Sodium Chloride 1,000 ml @ 50 mls/hr Q20H IV 12/27/18 00:45 01/26/19 00:44 12/28/18 17:44 Frida Billings M.D. Dec 28, 2018 18:14
[2018-12-28] MEDS ORDERED: Fleet's Mineral Oil Enema RECTAL SCH (19:30)
[2018-12-28] MEDS ORDERED: Mineral Oil 30ml ud ORAL SCH (19:30)
--- NOTE | 2018-12-28 19:30 | NUR ---
NURSE NOTES: Received a report from RHYS Osman. Patient asleep. Breathing unlabored without distress, discomfort, or sob. No complains of pain noted at this time. IV intact on left arm intact and running fluid as ordered. Suprapubic cath intact but leaking. MD castano and Dr. Arevalo scheduled to come in to replaced the suprapubic cath. Bed placed at the lowest with alarm, brake and side rail up for safety. Call light placed within reach. Will continue to monitor and provide care as ordered.
--- NOTE | 2018-12-28 19:31 | NUR ---
HAND-OFF: Report given to RHYS Alcala.
[2018-12-28 20:00] VITALS: BP 107/52
[2018-12-28] MEDS: Citalopram Hydrobromide 10mg Tab ORAL SCH (20:57)
--- NOTE | 2018-12-28 22:15 | Consultation ---
DATE OF CONSULTATION: 12/28/2018 CONSULTING PHYSICIAN: Camilo Arevalo M.D. REFERRING PHYSICIAN: Suad Loving M.D. REASON FOR CONSULTATION: For evaluation of suprapubic tube. HISTORY OF PRESENT ILLNESS: This is an 87-year-old male who is known to me from previous evaluations. The patient has history of BPH, urinary retention, stricture disease, and a chronic suprapubic tube. He has had problems with leakage of the catheter. He has had recurrent UTIs and colonization. He was admitted to the hospital because of diarrhea and weakness. He was noted to have UTI. I was last to see him for exchange of the suprapubic tube. PAST MEDICAL HISTORY: Significant for above. Also, history of dementia, sick sinus syndrome, BPH, diabetes, hypertension, depression. PAST SURGICAL HISTORY: Suprapubic catheter and pacemaker. Other surgeries are unknown. CURRENT MEDICATIONS: Here in the hospital, the patient is on ertapenem, Celexa, Norvasc, Ecotrin, multivitamins, oxybutynin, NovoLog, lorazepam. ALLERGIES: No known drug allergies. SOCIAL HISTORY: Resident of a prison. FAMILY HISTORY: Unable to obtain. Family side, unable to obtain. PHYSICAL EXAMINATION: GENERAL: An elderly male, nonverbal. VITAL SIGNS: Temperature is 97.8, blood pressure is 120/58, pulse 66, respirations 18. HEENT: Normocephalic. NECK: Supple. GENITOURINARY: Suprapubic tube is in place, 24-[place]. Urine is yellowish with some debris. EXTREMITIES: Slightly contracted. LABORATORY DATA: UA showed 2+ protein, 5 to 10 rbc's, 10 to 12 wbc's. White count is 9.6, hemoglobin is 10.5, and platelets are 224,000. BUN is 24, creatinine is 1.4. He did have a creatinine of 1.6 on admission. Urine culture showed also for gram-negative bacillus. DIAGNOSTIC IMAGING STUDIES: The patient had a CT scan of the abdomen and pelvis. There was a mention of low-attenuation lesions in the kidney, possibly small cyst. There were no stones or hydronephrosis. There was mention of rectal impaction. IMPRESSION: 1. BPH history. 2. Urinary retention history. 3. Probable neurogenic bladder. 4. Chronic suprapubic tube. 5. UTI and colonization. 6. Hematuria. 7. Proteinuria. 8. Renal cyst. 9. Renal insufficiency, acute on chronic. 10. Stricture disease. PLAN AND DISCUSSION: The patient was evaluated at the bedside. I personally removed the old suprapubic tube. I placed a new 24-[place] suprapubic tube in place. The catheter was irrigated, it is in good position, it irrigates well. I will recommend continue with antibiotics as ordered. Follow up on the urine culture and any other recommendations will be forthcoming. His renal function will be monitored. Thank you, Dr. Loving, for asking me to participate in this consultation. Camilo Arevalo M.D. DRBridget WHITMORE JOB#: [id number] CC:
[2018-12-29] VITALS: BP 114/52
--- NOTE | 2018-12-29 01:51 | NUR ---
NURSE NOTES: Confirmed okay to collect ob stool after the enema with lab personnel. Collected ob stool sample and delivered to lab.
[2018-12-29 04:00] VITALS: BP 116/52
[2018-12-29 05:20] LABS: BASOPHILS % (AUTO) 1.2 % (0.0-2.0); EOSINOPHILS % (AUTO) 10.4 % (0.0-3.0); HEMOGLOBIN 9.3 G/DL (14.2-18.0); LYMPHOCYTES % (AUTO) 24.1 % (20.0-45.0); MEAN CORPUSCULAR VOLUME 74 FL (80-99); MONOCYTES % (AUTO) 6.9 % (1.0-10.0); NEUTROPHILS % (AUTO) 57.4 % (45.0-75.0); PLATELET COUNT 203 K/UL (150-450); RED BLOOD COUNT 4.04 M/UL (4.70-6.10); RED CELL DISTRIBUTION WIDTH 12.9 % (11.6-14.8); WHITE BLOOD COUNT 6.4 K/UL (4.8-10.8)
[2018-12-29 06:25] LABS: ALANINE AMINOTRANSFERASE 10 U/L (12-78); ALBUMIN 2.8 G/DL (3.4-5.0); ALKALINE PHOSPHATASE 58 U/L (46-116); ANION GAP 11 mmol/L (5-15); ASPARTATE AMINO TRANSFERASE 15 U/L (15-37); BILIRUBIN,TOTAL 0.5 MG/DL (0.2-1.0); BLOOD UREA NITROGEN 23 mg/dL (7-18); CALCIUM 8.1 MG/DL (8.5-10.1); CARBON DIOXIDE 23 MMOL/L (21-32); CHLORIDE 112 MMOL/L (98-107); CREATININE 1.3 MG/DL (0.55-1.30); FERRITIN 75 NG/ML (8-388); POTASSIUM 3.7 MMOL/L (3.5-5.1); SODIUM 145 MMOL/L (136-145)
[2018-12-29] MEDS: NovoLOG Insulin Flexpen SUBQ SCH ×4 (06:25→20:11)
--- NOTE | 2018-12-29 07:10 | NUR ---
NURSE NOTES: Received a report from RHYS Alcala. Patient is asleep. Breathing unlabored without distress, discomfort, or sob. No complains of pain noted at this time. IV intact on left arm intact and running fluid as ordered. Suprapubic cath intact. Bed placed at the lowest with alarm, brake and side rail up for safety. Call light placed within reach. Will continue to monitor and provide care as ordered.
--- NOTE | 2018-12-29 07:30 | Urology Progress Note ---
Assessment/Plan Status: stable Assessment/Plan: 1. BPH history. 2. Urinary retention history. 3. Probable neurogenic bladder. 4. Chronic suprapubic tube. 5. UTI and colonization. 6. Hematuria. 7. Proteinuria. 8. Renal cyst. 9. Renal insufficiency, acute on chronic. 10. Stricture disease. keep SP tube, last exchanged 12/28 hand irrigate PRN abx as ordered low dose ditropan f/u on blood cx Subjective Allergies: Coded Allergies: No Known Allergies (Unverified , 11/26/14) Subjective looks comfortable, SP tube draining well Objective Last 24 Hour Vital Signs Date Time Temp Pulse Resp B/P (MAP) Pulse Ox O2 Delivery O2 Flow Rate FiO2 12/29/18 04:00 96.9 61 19 116/52 (73) 96 12/29/18 00:00 97.0 61 20 114/52 (72) 95 12/28/18 21:00 Room Air 12/28/18 20:00 97.1 60 20 107/52 (70) 95 12/28/18 16:00 97.8 66 18 120/58 (78) 96 12/28/18 12:00 97.7 61 18 124/79 (94) 94 12/28/18 09:24 62 115/69 12/28/18 09:00 Room Air 12/28/18 08:00 97.6 62 18 115/69 (84) 91 Intake and Output 12/28/18 12/29/18 18:59 06:59 Intake Total 1200 ml 1150 ml Output Total 950 ml Balance 1200 ml 200 ml Intake Oral 600 ml 600 ml IV Total 600 ml 550 ml Output Urine Total 950 ml # Voids 1 # Bowel Movements 4 3 Microbiology Date/Time Source Procedure Growth Status 12/27/18 15:45 Blood Blood Culture - Preliminary NO GROWTH AFTER 24 HOURS Resulted 12/26/18 22:30 Nasal Nares MRSA Culture - Final NO METHICILLIN RESISTANT STAPH AUREUS... Complete 12/26/18 21:35 Stool Clostridium difficile Toxin Assay - Final Complete 12/26/18 20:40 Urine,Clean Catch Urine Culture - Final Proteus Mirabilis Complete 12/26/18 22:30 Rectum VRE Culture - Final Enterococcus Faecalis - Vre Complete Current Medications Medications (Trade) Dose Ordered Sig/Charlene Route PRN Reason Start Time Stop Time Status Last Admin Dose Admin Amlodipine Besylate (Norvasc) 5 mg DAILY ORAL 12/27/18 09:00 01/26/19 08:59 12/28/18 09:24 Aspirin (Ecotrin) 81 mg DAILY ORAL 12/27/18 09:00 01/26/19 08:59 12/28/18 09:23 Citalopram Hydrobromide (celeXA) 40 mg QHS ORAL 12/27/18 21:00 01/26/19 20:59 12/28/18 20:57 Dextrose (Dextrose 50%) 25 ml Q30M PRN IV Hypoglycemia 12/27/18 00:45 01/26/19 00:44 Dextrose (Dextrose 50%) 50 ml Q30M PRN IV Hypoglycemia 12/27/18 00:45 01/26/19 00:44 Ertapenem 0.5 gm/ Sodium Chloride 55 ml @ 110 mls/hr DAILY IVPB 12/28/18 13:00 01/02/19 12:59 12/28/18 13:57 Insulin Aspart (NovoLOG) BEFORE MEALS AND HS SUBQ 12/27/18 06:30 01/26/19 06:29 12/28/18 20:59 Iopamidol (Isovue-300 100ml) 100 ml NOW PRN INJ Radiology Procedure 12/26/18 18:00 Lorazepam (Ativan) 0.5 mg BIDPRN PRN ORAL For Anxiety 12/27/18 00:45 01/03/19 00:44 Multivitamins (Multivitamins) 1 tab DAILY ORAL 12/27/18 09:00 01/26/19 08:59 12/28/18 09:23 Oxybutynin Chloride (Ditropan) 2.5 mg BID ORAL 12/27/18 09:00 01/26/19 08:59 12/28/18 17:44 Sodium Chloride 1,000 ml @ 50 mls/hr Q20H IV 12/27/18 00:45 01/26/19 00:44 12/28/18 17:44 Laboratory Tests 12/29/18 01:42: Stool Occult Blood [Pending] 12/29/18 04:50: White Blood Count 6.4, Red Blood Count 4.04L, Hemoglobin 9.3L, Hematocrit 30.0L , Mean Corpuscular Volume 74L, Mean Corpuscular Hemoglobin 22.9L, Mean Corpuscular Hemoglobin Concent 30.8L, Red Cell Distribution Width 12.9, Platelet Count 203, Mean Platelet Volume 5.3L, Neutrophils (%) (Auto) 57.4, Lymphocytes (%) (Auto) 24.1, Monocytes (%) (Auto) 6.9, Eosinophils (%) (Auto) 10.4H, Basophils (%) (Auto) 1.2, Reticulocyte Count [Pending], Prothrombin Time 11.0, Prothromb Time International Ratio 1.0, Activated Partial Thromboplast Time 27, Sodium Level 145, Potassium Level 3.7, Chloride Level 112H, Carbon Dioxide Level 23, Anion Gap 11, Blood Urea Nitrogen 23H, Creatinine 1.3, Estimat Glomerular Filtration Rate , Glucose Level 77, Calcium Level 8.1L, Iron Level [Pending], Unsaturated Iron Binding [Pending], Ferritin 75, Total Bilirubin 0.5, Aspartate Amino Transf (AST/SGOT) 15, Alanine Aminotransferase ( ALT/SGPT) 10L, Alkaline Phosphatase 58, Total Protein 5.5L, Albumin 2.8L, Globulin 2.7, Albumin/Globulin Ratio 1.0, Carcinoembryonic Antigen [Pending], Vitamin B12 Level [Pending], Folate [Pending], Thyroid Stimulating Hormone (TSH ) 0.684, Free Thyroxine 0.87 Height (Feet): 5 Height (Inches): 3.00 Weight (Pounds): 127 Objective exam stable urine grossly yellow Bamshad,Camilo Lancaster MD Dec 29, 2018 07:30
--- NOTE | 2018-12-29 07:39 | NUR ---
HAND-OFF: Report given to RHYS Rodriguez.
[2018-12-29 07:40] LABS: % IRON SATURATION 28 % (15-50); IRON 43 ug/dL (50-175); TOTAL IRON BINDING CAPACITY 152 ug/dL (250-450)
[2018-12-29 08:00] VITALS: BP 141/62
--- NOTE | 2018-12-29 08:45 | NUR ---
NURSE NOTES: Dr. Loving saw patient. Discussed patient had good appetite this morning. States Patient need to get today's antibiotic Evtapenem and tomorrow. Patient is able to be discharge to [facility] tomorrow after IV antibiotic. The patient will need 7 days of IV antibiotic and patient can go with IV heplock. Will be endorsed to charge nurse, incoming nurse, and case management.
[2018-12-29] MEDS: Oxybutynin 5mg tab ORAL SCH ×2 (09:04→17:45)
[2018-12-29] MEDS: Aspirin EC 81mg tab ORAL SCH (09:04)
--- NOTE | 2018-12-29 09:10 | General Progress Note ---
Assessment/Plan Status: stable Assessment/Plan: 1. Catheter associated UTI - cont erthapenam 1 gm IV daily for total of 10 days. 2. Diarrhea - C diff toxin negative for C diff. stool cx's pending. 3. HTN - cont enalopril 20 mg daily, norvasc 5 mg one po daily. 4. Depression - cont home celexa 40 mg one po qhs. 5. DM II - well controlled. on Tradjenta 2.5 mg po daily as outpatient. on SSS in hospital. 6. SSS s/p Pacemaker on last admission - stable. 7. Weakness - PT and OT eval and txt done. 8. Leaky Supra pubic cath - supra pubic cath changed on 12/28/18. Subjective Date patient seen: Dec 29, 2018 Time patient seen: 08:45 Constitutional: Reports: no symptoms HEENT: Reports: no symptoms Cardiovascular: Reports: no symptoms Respiratory: Reports: no symptoms Gastrointestinal/Abdominal: Reports: diarrhea Genitourinary: Reports: no symptoms Neurologic/Psychiatric: Reports: no symptoms Endocrine: Reports: no symptoms Hematologic/Lymphatic: Reports: no symptoms Allergies: Coded Allergies: No Known Allergies (Unverified , 11/26/14) Subjective This morning he is awake and doing well. His c diff toxin negative. no fever or chills. no SOB or chest pain. His suprapubic cath was changed. Objective Last 24 Hour Vital Signs Date Time Temp Pulse Resp B/P (MAP) Pulse Ox O2 Delivery O2 Flow Rate FiO2 12/29/18 08:00 96.6 61 20 141/62 (88) 94 12/29/18 04:00 96.9 61 19 116/52 (73) 96 12/29/18 00:00 97.0 61 20 114/52 (72) 95 12/28/18 21:00 Room Air 12/28/18 20:00 97.1 60 20 107/52 (70) 95 12/28/18 16:00 97.8 66 18 120/58 (78) 96 12/28/18 12:00 97.7 61 18 124/79 (94) 94 12/28/18 09:24 62 115/69 Intake and Output 12/28/18 12/29/18 19:00 07:00 Intake Total 1150 ml 1200 ml Output Total 950 ml Balance 1150 ml 250 ml Intake Oral 600 ml 600 ml IV Total 550 ml 600 ml Output Urine Total 950 ml # Voids 1 # Bowel Movements 4 3 Laboratory Tests 12/29/18 01:42: Stool Occult Blood [Pending] 12/29/18 04:50: White Blood Count 6.4, Red Blood Count 4.04L, Hemoglobin 9.3L, Hematocrit 30.0L , Mean Corpuscular Volume 74L, Mean Corpuscular Hemoglobin 22.9L, Mean Corpuscular Hemoglobin Concent 30.8L, Red Cell Distribution Width 12.9, Platelet Count 203, Mean Platelet Volume 5.3L, Neutrophils (%) (Auto) 57.4, Lymphocytes (%) (Auto) 24.1, Monocytes (%) (Auto) 6.9, Eosinophils (%) (Auto) 10.4H, Basophils (%) (Auto) 1.2, Reticulocyte Count [Pending], Prothrombin Time 11.0, Prothromb Time International Ratio 1.0, Activated Partial Thromboplast Time 27, Sodium Level 145, Potassium Level 3.7, Chloride Level 112H, Carbon Dioxide Level 23, Anion Gap 11, Blood Urea Nitrogen 23H, Creatinine 1.3, Estimat Glomerular Filtration Rate , Glucose Level 77, Calcium Level 8.1L, Iron Level 43L, Total Iron Binding Capacity 152L, Percent Iron Saturation 28, Unsaturated Iron Binding 109L, Ferritin 75, Total Bilirubin 0.5, Aspartate Amino Transf (AST/SGOT) 15, Alanine Aminotransferase (ALT/SGPT) 10L, Alkaline Phosphatase 58, Total Protein 5.5L, Albumin 2.8L, Globulin 2.7, Albumin/ Globulin Ratio 1.0, Carcinoembryonic Antigen [Pending], Vitamin B12 Level > 2000H, Folate 38.9, Thyroid Stimulating Hormone (TSH) 0.684, Free Thyroxine 0.87 Height (Feet): 5 Height (Inches): 3.00 Weight (Pounds): 127 General Appearance: no apparent distress EENT: normal ENT inspection Neck: non-tender, supple Cardiovascular: normal peripheral pulses, normal rate, regular rhythm Respiratory/Chest: lungs clear, normal breath sounds Abdomen: normal bowel sounds, non tender, soft Extremities: normal range of motion, non-tender Edema: no edema noted Arm (L), no edema noted Arm (R), no edema noted Leg (L), no edema noted Leg (R), no edema noted Pedal (L), no edema noted Pedal (R), no edema noted Generalized Neurologic: alert, responsive Skin: warm/dry Lymphatic: normal anterior cervical (L), normal anterior cervical (R), normal posterior cervical (L), normal posterior cervical (R), normal submandibular (L) , normal submandibular (R), normal supraclavicular (L), normal supraclavicular ( R), normal axillary (L), normal axillary (R), normal inguinal (L), normal inguinal (R), normal other Suad Loving MD Dec 29, 2018 09:10
[2018-12-29] MEDS: Ertapenem 0.5 GM in NS 55 ML IVPB SCH (09:33)
[2018-12-29 12:00] VITALS: BP 127/67
--- NOTE | 2018-12-29 12:42 | GI Progress Note ---
Assessment/Plan Problems: (1) Impaction of colon ICD Codes: K56.49 - Other impaction of intestine SNOMED: 47666980 (2) Dementia ICD Codes: F03.90 - Unspecified dementia without behavioral disturbance SNOMED: 05635211 Qualifiers: Qualified Codes: F03.90 - Unspecified dementia without behavioral disturbance (3) Altered mental status ICD Codes: R41.82 - Altered mental status, unspecified SNOMED: 373026935 Status: unchanged Status Narrative Discussed with Dr. Rawls. Assessment/Plan Abdominal pelvis CT reviewed noted with fecal impaction C. difficile negative OB stool negative x2 digital disimpaction done today start aggressive bowel regime advance diet as tolerated monitor H&H, prn transfusions ppi fu labs The patient was seen and examined at bedside and all new and available data was reviewed in the patients chart. I agree with the above findings, impression and plan. (Patient seen earlier today. Signature stamp does not reflect patient encounter time.). - Sanjay Rawls MD Subjective Subjective limited Objective Last 24 Hour Vital Signs Date Time Temp Pulse Resp B/P (MAP) Pulse Ox O2 Delivery O2 Flow Rate FiO2 12/29/18 09:04 61 141/62 12/29/18 09:00 Room Air 12/29/18 08:00 96.6 61 20 141/62 (88) 94 12/29/18 04:00 96.9 61 19 116/52 (73) 96 12/29/18 00:00 97.0 61 20 114/52 (72) 95 12/28/18 21:00 Room Air 12/28/18 20:00 97.1 60 20 107/52 (70) 95 12/28/18 16:00 97.8 66 18 120/58 (78) 96 Intake and Output 12/28/18 12/29/18 19:00 07:00 Intake Total 1150 ml 1200 ml Output Total 950 ml Balance 1150 ml 250 ml Intake Oral 600 ml 600 ml IV Total 550 ml 600 ml Output Urine Total 950 ml # Voids 1 # Bowel Movements 4 3 Laboratory Tests Test 12/29/18 01:42 12/29/18 04:50 Stool Occult Blood Negative (NEGATIVE) White Blood Count 6.4 K/UL (4.8-10.8) Red Blood Count 4.04 M/UL (4.70-6.10) L Hemoglobin 9.3 G/DL (14.2-18.0) L Hematocrit 30.0 % (42.0-52.0) L Mean Corpuscular Volume 74 FL (80-99) L Mean Corpuscular Hemoglobin 22.9 PG (27.0-31.0) L Mean Corpuscular Hemoglobin Concent 30.8 G/DL (32.0-36.0) L Red Cell Distribution Width 12.9 % (11.6-14.8) Platelet Count 203 K/UL (150-450) Mean Platelet Volume 5.3 FL (6.5-10.1) L Neutrophils (%) (Auto) 57.4 % (45.0-75.0) Lymphocytes (%) (Auto) 24.1 % (20.0-45.0) Monocytes (%) (Auto) 6.9 % (1.0-10.0) Eosinophils (%) (Auto) 10.4 % (0.0-3.0) H Basophils (%) (Auto) 1.2 % (0.0-2.0) Reticulocyte Count 1.6 % (0.5-2.0) Prothrombin Time 11.0 SEC (9.30-11.50) Prothromb Time International Ratio 1.0 (0.9-1.1) Activated Partial Thromboplast Time 27 SEC (23-33) Sodium Level 145 MMOL/L (136-145) Potassium Level 3.7 MMOL/L (3.5-5.1) Chloride Level 112 MMOL/L (98-107) H Carbon Dioxide Level 23 MMOL/L (21-32) Anion Gap 11 mmol/L (5-15) Blood Urea Nitrogen 23 mg/dL (7-18) H Creatinine 1.3 MG/DL (0.55-1.30) Estimat Glomerular Filtration Rate mL/min (>60) Glucose Level 77 MG/DL (74-106) Calcium Level 8.1 MG/DL (8.5-10.1) L Iron Level 43 ug/dL (50-175) L Total Iron Binding Capacity 152 ug/dL (250-450) L Percent Iron Saturation 28 % (15-50) Unsaturated Iron Binding 109 ug/dL (112-346) L Ferritin 75 NG/ML (8-388) Total Bilirubin 0.5 MG/DL (0.2-1.0) Aspartate Amino Transf (AST/SGOT) 15 U/L (15-37) Alanine Aminotransferase (ALT/SGPT) 10 U/L (12-78) L Alkaline Phosphatase 58 U/L (46-116) Total Protein 5.5 G/DL (6.4-8.2) L Albumin 2.8 G/DL (3.4-5.0) L Globulin 2.7 g/dL Albumin/Globulin Ratio 1.0 (1.0-2.7) Carcinoembryonic Antigen Pending Vitamin B12 Level > 2000 PG/ML (193-986) H Folate 38.9 NG/ML (8.6-58.9) Thyroid Stimulating Hormone (TSH) 0.684 uiU/mL (0.358-3.740) Free Thyroxine 0.87 NG/DL (0.76-1.46) Height (Feet): 5 Height (Inches): 3.00 Weight (Pounds): 127 General Appearance: WD/WN, no apparent distress, alert Cardiovascular: normal rate Respiratory/Chest: normal breath sounds, no respiratory distress Abdominal Exam: normal bowel sounds, non tender, soft Extremities: normal range of motion, non-tender Emily Pearl NP Dec 29, 2018 12:42
[2018-12-29] MEDS ORDERED: Ertapenem 1 GM in NS 55 ML IVPB SCH (13:00)
--- NOTE | 2018-12-29 14:33 | NUR ---
RD ASSESSMENT & RECOMMENDATIONS SEE CARE ACTIVITY FOR COMPLETE ASSESSMENT DAILY ESTIMATED NEEDS: Needs based on Diabetes, cardiac, possible wt loss, 58kg 28-30 kcals/kg 1639-5005 total kcals 1-1.5 g protein/kg 58-87 g total protein 25-30 mL/kg 2114-4361 total fluid mLs NUTRITION DIAGNOSIS: Swallowing difficulty R/T dementia, dysphagia as evidenced by pt on pureed moist, NTL diet per EDUCATIONAL THERAPIST rec. CURRENT DIET:CCHO med/ pureed, NTL + Glucerna TID PO DIET RECOMMENDATIONS: CCHO MED/ texture per EDUCATIONAL THERAPIST ADDITIONAL RECOMMENDATIONS: * Calibrated bedscale wt for accurate CBW, weekly wt monitoring -> possible recent significant wt loss 127.5lbs bedscale wt on 12/29/18 vs 143lbs bedscale wt on 09/30/18 * Monitor PO intake closely -> rec liberalized regular diet w/ consistently poor PO
[2018-12-29 16:00] VITALS: BP 128/62
--- NOTE | 2018-12-29 16:53 | Infectious Diseases Prog Note ---
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 recommend fosfomycin 3 gm po q week for 3-6 months after done with his current antibiotics treatment (2) Diarrhea Assessment & Plan: with possible melena , send stool for occult blood, C diff toxin is negative , will send stool culture (3) ARF (acute renal failure) Assessment & Plan: suspect dehydration , continue to monitor renal function Subjective ROS Limited/Unobtainable: Yes Allergies: Coded Allergies: No Known Allergies (Unverified , 11/26/14) Subjective he was up in bed comfortable, afebrile, urine is clear, no diarrhea , no nausea or vomiting Objective Vital Signs Last 24 Hour Vital Signs Date Time Temp Pulse Resp B/P (MAP) Pulse Ox O2 Delivery O2 Flow Rate FiO2 12/29/18 12:00 97.3 61 20 127/67 (87) 96 12/29/18 09:04 61 141/62 12/29/18 09:00 Room Air 12/29/18 08:00 96.6 61 20 141/62 (88) 94 12/29/18 04:00 96.9 61 19 116/52 (73) 96 12/29/18 00:00 97.0 61 20 114/52 (72) 95 12/28/18 21:00 Room Air 12/28/18 20:00 97.1 60 20 107/52 (70) 95 Height (Feet): 5 Height (Inches): 3.00 Weight (Pounds): 127 General Appearance: no acute distress, cachetic HEENT: normocephalic, atraumatic, anicteric, mucous membranes moist, PERRL Respiratory/Chest: chest wall non-tender, lungs clear, normal breath sounds, no respiratory distress, no accessory muscle use Cardiovascular: normal peripheral pulses, normal rate, regular rhythm, no gallop/murmur, no JVD Abdomen: normal bowel sounds, soft, non tender, no organomegaly, non distended , no mass, no scars Genitourinary: normal external genitalia Extremities: no cyanosis, no clubbing Skin: no rash, no lesions, no ulcers Neurologic/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 Complete 12/26/18 21:35 Stool Clostridium difficile Toxin Assay - Final Complete 12/26/18 20:40 Urine,Clean Catch Urine Culture - Final Proteus Mirabilis Complete 12/26/18 22:30 Rectum - Final NO CARBAPENEM-RESISTANT ENTEROBACTERI... Complete 12/26/18 22:30 Rectum VRE Culture - Final Enterococcus Faecalis - Vre Complete Laboratory Tests Test 12/29/18 01:42 12/29/18 04:50 Stool Occult Blood Negative (NEGATIVE) White Blood Count 6.4 K/UL (4.8-10.8) Red Blood Count 4.04 M/UL (4.70-6.10) L Hemoglobin 9.3 G/DL (14.2-18.0) L Hematocrit 30.0 % (42.0-52.0) L Mean Corpuscular Volume 74 FL (80-99) L Mean Corpuscular Hemoglobin 22.9 PG (27.0-31.0) L Mean Corpuscular Hemoglobin Concent 30.8 G/DL (32.0-36.0) L Red Cell Distribution Width 12.9 % (11.6-14.8) Platelet Count 203 K/UL (150-450) Mean Platelet Volume 5.3 FL (6.5-10.1) L Neutrophils (%) (Auto) 57.4 % (45.0-75.0) Lymphocytes (%) (Auto) 24.1 % (20.0-45.0) Monocytes (%) (Auto) 6.9 % (1.0-10.0) Eosinophils (%) (Auto) 10.4 % (0.0-3.0) H Basophils (%) (Auto) 1.2 % (0.0-2.0) Reticulocyte Count 1.6 % (0.5-2.0) Prothrombin Time 11.0 SEC (9.30-11.50) Prothromb Time International Ratio 1.0 (0.9-1.1) Activated Partial Thromboplast Time 27 SEC (23-33) Sodium Level 145 MMOL/L (136-145) Potassium Level 3.7 MMOL/L (3.5-5.1) Chloride Level 112 MMOL/L (98-107) H Carbon Dioxide Level 23 MMOL/L (21-32) Anion Gap 11 mmol/L (5-15) Blood Urea Nitrogen 23 mg/dL (7-18) H Creatinine 1.3 MG/DL (0.55-1.30) Estimat Glomerular Filtration Rate mL/min (>60) Glucose Level 77 MG/DL (74-106) Calcium Level 8.1 MG/DL (8.5-10.1) L Iron Level 43 ug/dL (50-175) L Total Iron Binding Capacity 152 ug/dL (250-450) L Percent Iron Saturation 28 % (15-50) Unsaturated Iron Binding 109 ug/dL (112-346) L Ferritin 75 NG/ML (8-388) Total Bilirubin 0.5 MG/DL (0.2-1.0) Aspartate Amino Transf (AST/SGOT) 15 U/L (15-37) Alanine Aminotransferase (ALT/SGPT) 10 U/L (12-78) L Alkaline Phosphatase 58 U/L (46-116) Total Protein 5.5 G/DL (6.4-8.2) L Albumin 2.8 G/DL (3.4-5.0) L Globulin 2.7 g/dL Albumin/Globulin Ratio 1.0 (1.0-2.7) Carcinoembryonic Antigen Pending Vitamin B12 Level > 2000 PG/ML (193-986) H Folate 38.9 NG/ML (8.6-58.9) Thyroid Stimulating Hormone (TSH) 0.684 uiU/mL (0.358-3.740) Free Thyroxine 0.87 NG/DL (0.76-1.46) Current Medications Medications (Trade) Dose Ordered Sig/Charlene Route PRN Reason Start Time Stop Time Status Last Admin Dose Admin Amlodipine Besylate (Norvasc) 5 mg DAILY ORAL 8/27/19 09:00 01/26/19 08:59 12/29/18 09:04 Aspirin (Ecotrin) 81 mg DAILY ORAL 12/27/18 09:00 01/26/19 08:59 12/29/18 09:04 Citalopram Hydrobromide (celeXA) 40 mg QHS ORAL 12/27/18 21:00 01/26/19 20:59 12/28/18 20:57 Dextrose (Dextrose 50%) 25 ml Q30M PRN IV Hypoglycemia 12/27/18 00:45 01/26/19 00:44 Dextrose (Dextrose 50%) 50 ml Q30M PRN IV Hypoglycemia 12/27/18 00:45 01/26/19 00:44 Docusate Sodium (Colace) 100 mg TID ORAL 12/29/18 18:00 01/28/19 17:59 Ertapenem 1 gm/ Sodium Chloride 55 ml @ 110 mls/hr DAILY IVPB 12/30/18 09:00 01/04/19 08:59 Insulin Aspart (NovoLOG) BEFORE MEALS AND HS SUBQ 12/27/18 06:30 01/26/19 06:29 12/28/18 20:59 Iopamidol (Isovue-300 100ml) 100 ml NOW PRN INJ Radiology Procedure 12/26/18 18:00 Lorazepam (Ativan) 0.5 mg BIDPRN PRN ORAL For Anxiety 12/27/18 00:45 01/03/19 00:44 Multivitamins (Multivitamins) 1 tab DAILY ORAL 12/27/18 09:00 01/26/19 08:59 12/29/18 09:04 Oxybutynin Chloride (Ditropan) 2.5 mg BID ORAL 12/27/18 09:00 01/26/19 08:59 12/29/18 09:04 Polyethylene Glycol (Miralax) 17 gm BEDTIME ORAL 12/29/18 21:00 01/28/19 20:59 Sodium Chloride 1,000 ml @ 50 mls/hr Q20H IV 12/27/18 00:45 01/26/19 00:44 12/29/18 13:22 Frida Billings M.D. Dec 29, 2018 16:53
[2018-12-29] MEDS: Docusate 100mg tablet ORAL SCH (17:45)
--- NOTE | 2018-12-29 19:36 | NUR ---
HAND-OFF: Report given to RHYS Vazquez.
--- NOTE | 2018-12-29 19:40 | NUR ---
NURSE NOTES: Received a report from RHYS Rodriguez. Pt is in stable condition. Sleeping comfortably. On room air. No pain/discomfort noted. IV site is patent and intact. Has suprapubic catheter, is draining. Bed in lowest position. Bed alarm is on. Call light within reach. Will continue to monitor.
[2018-12-29 20:00] VITALS: BP 119/74
[2018-12-29] MEDS: Citalopram Hydrobromide 10mg Tab ORAL SCH (20:09)
[2018-12-29] MEDS ORDERED: Miralax 17gm pkt ORAL SCH (21:00)
[2018-12-30] VITALS: BP 128/70
[2018-12-30 04:00] VITALS: BP 140/83
[2018-12-30 06:09] LABS: BASOPHILS % (AUTO) 0.7 % (0.0-2.0); EOSINOPHILS % (AUTO) 12.8 % (0.0-3.0); HEMATOCRIT 29.1 % (42.0-52.0); HEMOGLOBIN 9.1 G/DL (14.2-18.0); LYMPHOCYTES % (AUTO) 27.6 % (20.0-45.0); MEAN CORPUSCULAR VOLUME 75 FL (80-99); MONOCYTES % (AUTO) 7.3 % (1.0-10.0); NEUTROPHILS % (AUTO) 51.6 % (45.0-75.0); PLATELET COUNT 209 K/UL (150-450); RED BLOOD COUNT 3.91 M/UL (4.70-6.10); RED CELL DISTRIBUTION WIDTH 13.5 % (11.6-14.8); WHITE BLOOD COUNT 6.4 K/UL (4.8-10.8)
[2018-12-30 06:25] LABS: ANION GAP 7 mmol/L (5-15); BLOOD UREA NITROGEN 20 mg/dL (7-18); CALCIUM 8.1 MG/DL (8.5-10.1); CARBON DIOXIDE 23 MMOL/L (21-32); CHLORIDE 114 MMOL/L (98-107); CREATININE 1.2 MG/DL (0.55-1.30); POTASSIUM 4.1 MMOL/L (3.5-5.1); SODIUM 144 MMOL/L (136-145)
[2018-12-30] MEDS: NovoLOG Insulin Flexpen SUBQ SCH ×2 (06:28→12:43)
--- NOTE | 2018-12-30 07:15 | NUR ---
HAND-OFF: Report given to RHYS Mccain.
--- NOTE | 2018-12-30 07:51 | Urology Progress Note ---
Assessment/Plan Status: unchanged Assessment/Plan: 1. BPH history. 2. Urinary retention history. 3. Probable neurogenic bladder. 4. Chronic suprapubic tube. 5. UTI and colonization. 6. Hematuria. 7. Proteinuria. 8. Renal cyst. 9. Renal insufficiency, acute on chronic. 10. Stricture disease. keep SP tube, last exchanged 12/28 hand irrigate PRN abx as ordered low dose ditropan f/u on blood cx Subjective Allergies: Coded Allergies: No Known Allergies (Unverified , 11/26/14) Subjective looks comfortable, SP tube draining well Objective Last 24 Hour Vital Signs Date Time Temp Pulse Resp B/P (MAP) Pulse Ox O2 Delivery O2 Flow Rate FiO2 12/30/18 04:00 98.5 61 16 140/83 (102) 98 12/30/18 00:00 98.0 66 16 128/70 (89) 95 12/29/18 21:00 Room Air 12/29/18 20:00 98.3 63 18 119/74 (89) 95 12/29/18 16:00 97.9 61 20 128/62 (84) 96 12/29/18 12:00 97.3 61 20 127/67 (87) 96 12/29/18 09:04 61 141/62 12/29/18 09:00 Room Air 12/29/18 08:00 96.6 61 20 141/62 (88) 94 Intake and Output 12/29/18 12/30/18 18:59 06:59 Intake Total 650 ml 600 ml Output Total 250 ml 800 ml Balance 400 ml -200 ml Intake Oral 600 ml IV Total 50 ml 600 ml Output Urine Total 250 ml 800 ml # Voids 3 Microbiology Date/Time Source Procedure Growth Status 12/27/18 15:45 Blood Blood Culture - Preliminary NO GROWTH AFTER 48 HOURS Resulted 12/26/18 22:30 Nasal Nares MRSA Culture - Final NO METHICILLIN RESISTANT STAPH AUREUS... Complete 12/26/18 21:35 Stool Clostridium difficile Toxin Assay - Final Complete 12/26/18 20:40 Urine,Clean Catch Urine Culture - Final Proteus Mirabilis Complete 12/26/18 22:30 Rectum - Final NO CARBAPENEM-RESISTANT ENTEROBACTERI... Complete Current Medications Medications (Trade) Dose Ordered Sig/Charlene Route PRN Reason Start Time Stop Time Status Last Admin Dose Admin Amlodipine Besylate (Norvasc) 5 mg DAILY ORAL 12/27/18 09:00 01/26/19 08:59 12/29/18 09:04 Aspirin (Ecotrin) 81 mg DAILY ORAL 12/27/18 09:00 01/26/19 08:59 12/29/18 09:04 Citalopram Hydrobromide (celeXA) 40 mg QHS ORAL 12/27/18 21:00 01/26/19 20:59 12/29/18 20:09 Dextrose (Dextrose 50%) 25 ml Q30M PRN IV Hypoglycemia 12/27/18 00:45 01/26/19 00:44 Dextrose (Dextrose 50%) 50 ml Q30M PRN IV Hypoglycemia 12/27/18 00:45 01/26/19 00:44 Docusate Sodium (Colace) 100 mg TID ORAL 12/29/18 18:00 01/28/19 17:59 12/29/18 17:45 Ertapenem 1 gm/ Sodium Chloride 55 ml @ 110 mls/hr DAILY IVPB 12/30/18 09:00 01/04/19 08:59 Insulin Aspart (NovoLOG) BEFORE MEALS AND HS SUBQ 12/27/18 06:30 01/26/19 06:29 12/30/18 06:28 Iopamidol (Isovue-300 100ml) 100 ml NOW PRN INJ Radiology Procedure 12/26/18 18:00 Lorazepam (Ativan) 0.5 mg BIDPRN PRN ORAL For Anxiety 12/27/18 00:45 01/03/19 00:44 Multivitamins (Multivitamins) 1 tab DAILY ORAL 12/27/18 09:00 01/26/19 08:59 12/29/18 09:04 Oxybutynin Chloride (Ditropan) 2.5 mg BID ORAL 12/27/18 09:00 01/26/19 08:59 12/29/18 17:45 Polyethylene Glycol (Miralax) 17 gm BEDTIME ORAL 12/29/18 21:00 01/28/19 20:59 12/29/18 20:09 Sodium Chloride 1,000 ml @ 50 mls/hr Q20H IV 12/27/18 00:45 01/26/19 00:44 12/30/18 06:27 Laboratory Tests 12/30/18 05:25: White Blood Count 6.4, Red Blood Count 3.91L, Hemoglobin 9.1L, Hematocrit 29.1L , Mean Corpuscular Volume 75L, Mean Corpuscular Hemoglobin 23.3L, Mean Corpuscular Hemoglobin Concent 31.3L, Red Cell Distribution Width 13.5, Platelet Count 209, Mean Platelet Volume 5.7L, Neutrophils (%) (Auto) 51.6, Lymphocytes (%) (Auto) 27.6, Monocytes (%) (Auto) 7.3, Eosinophils (%) (Auto) 12.8H, Basophils (%) (Auto) 0.7, Sodium Level 144, Potassium Level 4.1, Chloride Level 114H, Carbon Dioxide Level 23, Anion Gap 7, Blood Urea Nitrogen 20H, Creatinine 1.2, Estimat Glomerular Filtration Rate , Glucose Level 127H, Calcium Level 8.1L, Phosphorus Level 3.0, Magnesium Level 1.7L Height (Feet): 5 Height (Inches): 3.00 Weight (Pounds): 127 Objective exam stable urine grossly yellow Bamshad,Camilo Lancaster MD Dec 30, 2018 07:51
[2018-12-30 08:00] VITALS: BP 135/80
--- NOTE | 2018-12-30 08:00 | NUR ---
NURSE NOTES: Patient is alert to name ,respirations unlabored.IV fluids infusing as ordered.supra pubic catheter is in place and draining jim color urine.Assist patient with breakfast.Bes alrm is on,call light within reach.
[2018-12-30] MEDS ORDERED: INVANZ1 G1 IVPB (08:57)
[2018-12-30] MEDS ORDERED: Ertapenem 1 GM in NS 55 ML IVPB SCH (09:00)
--- NOTE | 2018-12-30 09:01 | General Progress Note ---
Assessment/Plan Status: stable, unchanged Assessment/Plan: 1. Catheter associated UTI - cont erthapenam 1 gm IV daily for total of 10 days. 7 more days at [facility]. D/C today. 2. Diarrhea 2nd to impaction - resolved. C diff toxin negative for C diff. 3. HTN - cont enalopril 20 mg daily, norvasc 5 mg one po daily. 4. Depression - cont home celexa 40 mg one po qhs. 5. DM II - well controlled. on Tradjenta 2.5 mg po daily as outpatient. on SSS in hospital. 6. SSS s/p Pacemaker on last admission - stable. 7. Weakness - PT and OT eval and txt done. 8. Leaky Supra pubic cath - supra pubic cath changed on 12/28/18. Subjective Date patient seen: Dec 30, 2018 Time patient seen: 08:40 Constitutional: Reports: no symptoms HEENT: Reports: no symptoms Cardiovascular: Reports: no symptoms Respiratory: Reports: no symptoms Gastrointestinal/Abdominal: Reports: no symptoms Genitourinary: Reports: no symptoms Neurologic/Psychiatric: Reports: no symptoms Endocrine: Reports: no symptoms Hematologic/Lymphatic: Reports: no symptoms Allergies: Coded Allergies: No Known Allergies (Unverified , 11/26/14) Subjective This morning he is awake and doing well. His c diff toxin and stool hemocult negative. no diarrhea. no fever or chills. no SOB or chest pain. Objective Last 24 Hour Vital Signs Date Time Temp Pulse Resp B/P (MAP) Pulse Ox O2 Delivery O2 Flow Rate FiO2 12/30/18 04:00 98.5 61 16 140/83 (102) 98 12/30/18 00:00 98.0 66 16 128/70 (89) 95 12/29/18 21:00 Room Air 12/29/18 20:00 98.3 63 18 119/74 (89) 95 12/29/18 16:00 97.9 61 20 128/62 (84) 96 12/29/18 12:00 97.3 61 20 127/67 (87) 96 12/29/18 09:04 61 141/62 12/29/18 09:00 Room Air Intake and Output 12/29/18 12/30/18 18:59 06:59 Intake Total 650 ml 600 ml Output Total 250 ml 800 ml Balance 400 ml -200 ml Intake Oral 600 ml IV Total 50 ml 600 ml Output Urine Total 250 ml 800 ml # Voids 3 Laboratory Tests 12/30/18 05:25: White Blood Count 6.4, Red Blood Count 3.91L, Hemoglobin 9.1L, Hematocrit 29.1L , Mean Corpuscular Volume 75L, Mean Corpuscular Hemoglobin 23.3L, Mean Corpuscular Hemoglobin Concent 31.3L, Red Cell Distribution Width 13.5, Platelet Count 209, Mean Platelet Volume 5.7L, Neutrophils (%) (Auto) 51.6, Lymphocytes (%) (Auto) 27.6, Monocytes (%) (Auto) 7.3, Eosinophils (%) (Auto) 12.8H, Basophils (%) (Auto) 0.7, Sodium Level 144, Potassium Level 4.1, Chloride Level 114H, Carbon Dioxide Level 23, Anion Gap 7, Blood Urea Nitrogen 20H, Creatinine 1.2, Estimat Glomerular Filtration Rate , Glucose Level 127H, Calcium Level 8.1L, Phosphorus Level 3.0, Magnesium Level 1.7L Height (Feet): 5 Height (Inches): 3.00 Weight (Pounds): 127 General Appearance: no apparent distress, alert EENT: normal ENT inspection Neck: non-tender, normal alignment, supple Cardiovascular: normal rate, regular rhythm Respiratory/Chest: lungs clear, normal breath sounds Abdomen: non tender, soft Extremities: non-tender Edema: no edema noted Arm (L), no edema noted Arm (R), no edema noted Leg (L), no edema noted Leg (R), no edema noted Pedal (L), no edema noted Pedal (R), no edema noted Generalized Neurologic: alert, responsive Skin: warm/dry Lymphatic: normal anterior cervical (L), normal anterior cervical (R), normal posterior cervical (L), normal posterior cervical (R), normal submandibular (L) , normal submandibular (R), normal supraclavicular (L), normal supraclavicular ( R), normal axillary (L), normal axillary (R), normal inguinal (L), normal inguinal (R), normal other Suad Loving MD Dec 30, 2018 09:01
--- NOTE | 2018-12-30 09:20 | NUR ---
*-* CASE MANAGEMENT D/C INFO *-* PATIENT ISO N SERVICE WITH: [employer] [address] [place] [id number] T: [phone] F: [phone]
[2018-12-30] MEDS: Docusate 100mg tablet ORAL SCH ×2 (09:22→13:24)
[2018-12-30] MEDS: Aspirin EC 81mg tab ORAL SCH (09:23)
[2018-12-30] MEDS: Oxybutynin 5mg tab ORAL SCH (09:23)
[2018-12-30 09:25] VITALS: BP 123/60
[2018-12-30] MEDS ORDERED: Tubing IV Secondary IV ONE (09:43)
--- NOTE | 2018-12-30 10:49 | General Progress Note ---
Assessment/Plan Status: stable, unchanged Assessment/Plan: 1) Impaction of colon ICD Codes: K56.49 - Other impaction of intestine SNOMED: 82167741 (2) Dementia ICD Codes: F03.90 - Unspecified dementia without behavioral disturbance SNOMED: 71957411 Qualifiers: Qualified Codes: F03.90 - Unspecified dementia without behavioral disturbance (3) Altered mental status ICD Codes: R41.82 - Altered mental status, unspecified SNOMED: 363004371 Status: unchanged Assessment/Plan Abdominal pelvis CT reviewed noted with fecal impaction C. difficile negative OB stool negative x2 digital disimpaction done yesterday start aggressive bowel regime advance diet as tolerated monitor H&H, prn transfusions ppi fu labs pending discharge for today Subjective ROS Limited/Unobtainable: Yes Allergies: Coded Allergies: No Known Allergies (Unverified , 11/26/14) Objective Last 24 Hour Vital Signs Date Time Temp Pulse Resp B/P (MAP) Pulse Ox O2 Delivery O2 Flow Rate FiO2 12/30/18 09:25 60 123/60 12/30/18 09:25 60 123/60 (81) 12/30/18 08:00 98.2 64 17 135/80 (98) 98 12/30/18 04:00 98.5 61 16 140/83 (102) 98 12/30/18 00:00 98.0 66 16 128/70 (89) 95 12/29/18 21:00 Room Air 12/29/18 20:00 98.3 63 18 119/74 (89) 95 12/29/18 16:00 97.9 61 20 128/62 (84) 96 12/29/18 12:00 97.3 61 20 127/67 (87) 96 Intake and Output 12/29/18 12/30/18 18:59 06:59 Intake Total 650 ml 600 ml Output Total 250 ml 800 ml Balance 400 ml -200 ml Intake Oral 600 ml IV Total 50 ml 600 ml Output Urine Total 250 ml 800 ml # Voids 3 Laboratory Tests 12/30/18 05:25: White Blood Count 6.4, Red Blood Count 3.91L, Hemoglobin 9.1L, Hematocrit 29.1L , Mean Corpuscular Volume 75L, Mean Corpuscular Hemoglobin 23.3L, Mean Corpuscular Hemoglobin Concent 31.3L, Red Cell Distribution Width 13.5, Platelet Count 209, Mean Platelet Volume 5.7L, Neutrophils (%) (Auto) 51.6, Lymphocytes (%) (Auto) 27.6, Monocytes (%) (Auto) 7.3, Eosinophils (%) (Auto) 12.8H, Basophils (%) (Auto) 0.7, Sodium Level 144, Potassium Level 4.1, Chloride Level 114H, Carbon Dioxide Level 23, Anion Gap 7, Blood Urea Nitrogen 20H, Creatinine 1.2, Estimat Glomerular Filtration Rate , Glucose Level 127H, Calcium Level 8.1L, Phosphorus Level 3.0, Magnesium Level 1.7L Height (Feet): 5 Height (Inches): 3.00 Weight (Pounds): 127 General Appearance: no apparent distress EENT: normal ENT inspection Neck: normal alignment Cardiovascular: normal rate Respiratory/Chest: decreased breath sounds Abdomen: normal bowel sounds, non tender, soft Extremities: non-tender Sanjay Rawls MD Dec 30, 2018 10:49
--- NOTE | 2018-12-30 11:03 | Endoscopy Procedure Note ---
Endoscopy Procedure Note General Indication for Procedure: abd pain Procedures Performed: EGD Operative Findings/Diagnosis: gastritis Specimen: yes Anesthesia Anesthesiologist: marlon Anesthesia: MAC Inserted Devices Implant(s) used?: No GI Core Measures 50 yrs or older w/o bx or poly: Not Applicable 10yrs. F/U recommended: Not Applicable Sanjay Rawls MD Dec 30, 2018 11:03
[2018-12-30 12:00] VITALS: BP 117/60
--- NOTE | 2018-12-30 15:02 | Infectious Diseases Prog Note ---
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 recommend fosfomycin 3 gm po q week for 3-6 months after done with his current antibiotics treatment (2) Diarrhea Assessment & Plan: with possible melena , send stool for occult blood, C diff toxin is negative , will send stool culture (3) ARF (acute renal failure) Assessment & Plan: suspect dehydration , continue to monitor renal function Subjective Constitutional: Reports: no symptoms HEENT: Reports: no symptoms Respiratory: Reports: no symptoms Breasts: Reports: no symptoms Cardiovascular: Reports: no symptoms Gastrointestinal/Abdominal: Reports: no symptoms Genitourinary: Reports: no symptoms Neurologic: Reports: no symptoms Psychiatric: Reports: no symptoms Skin: Reports: no symptoms Endocrine: Reports: no symptoms Hematologic: Reports: no symptoms Musculoskeletal: Reports: no symptoms Allergies: Coded Allergies: No Known Allergies (Unverified , 11/26/14) Subjective he was up in bed comfortable, afebrile, urine is clear, no diarrhea , no nausea or vomiting Objective Vital Signs Last 24 Hour Vital Signs Date Time Temp Pulse Resp B/P (MAP) Pulse Ox O2 Delivery O2 Flow Rate FiO2 12/30/18 12:00 97.4 60 18 117/60 (79) 95 12/30/18 09:25 60 123/60 12/30/18 09:25 60 123/60 (81) 12/30/18 09:00 Room Air 12/30/18 08:00 98.2 64 17 135/80 (98) 98 12/30/18 04:00 98.5 61 16 140/83 (102) 98 12/30/18 00:00 98.0 66 16 128/70 (89) 95 12/29/18 21:00 Room Air 12/29/18 20:00 98.3 63 18 119/74 (89) 95 12/29/18 16:00 97.9 61 20 128/62 (84) 96 Height (Feet): 5 Height (Inches): 3.00 Weight (Pounds): 127 General Appearance: WD/WN, no acute distress HEENT: normocephalic, atraumatic, anicteric, mucous membranes moist, PERRL Respiratory/Chest: chest wall non-tender, lungs clear, normal breath sounds, no respiratory distress, no accessory muscle use Cardiovascular: normal peripheral pulses, normal rate, regular rhythm, no gallop/murmur, no JVD Abdomen: normal bowel sounds, soft, non tender, no organomegaly, non distended , no mass, no scars Genitourinary: normal external genitalia Extremities: no cyanosis, no clubbing Skin: no rash, no lesions, no ulcers 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, alert, responsive Lymphatic: no neck adenopathy, no groin adenopathy Musculoskeletal: normal muscle bulk, no effusion Microbiology Date/Time Source Procedure Growth Status 12/27/18 15:45 Blood Blood Culture - Preliminary NO GROWTH AFTER 48 HOURS Resulted 12/27/18 15:35 Blood Blood Culture - Preliminary NO GROWTH AFTER 48 HOURS Resulted Laboratory Tests Test 12/30/18 05:25 White Blood Count 6.4 K/UL (4.8-10.8) Red Blood Count 3.91 M/UL (4.70-6.10) L Hemoglobin 9.1 G/DL (14.2-18.0) L Hematocrit 29.1 % (42.0-52.0) L Mean Corpuscular Volume 75 FL (80-99) L Mean Corpuscular Hemoglobin 23.3 PG (27.0-31.0) L Mean Corpuscular Hemoglobin Concent 31.3 G/DL (32.0-36.0) L Red Cell Distribution Width 13.5 % (11.6-14.8) Platelet Count 209 K/UL (150-450) Mean Platelet Volume 5.7 FL (6.5-10.1) L Neutrophils (%) (Auto) 51.6 % (45.0-75.0) Lymphocytes (%) (Auto) 27.6 % (20.0-45.0) Monocytes (%) (Auto) 7.3 % (1.0-10.0) Eosinophils (%) (Auto) 12.8 % (0.0-3.0) H Basophils (%) (Auto) 0.7 % (0.0-2.0) Sodium Level 144 MMOL/L (136-145) Potassium Level 4.1 MMOL/L (3.5-5.1) Chloride Level 114 MMOL/L (98-107) H Carbon Dioxide Level 23 MMOL/L (21-32) Anion Gap 7 mmol/L (5-15) Blood Urea Nitrogen 20 mg/dL (7-18) H Creatinine 1.2 MG/DL (0.55-1.30) Estimat Glomerular Filtration Rate mL/min (>60) Glucose Level 127 MG/DL (74-106) H Calcium Level 8.1 MG/DL (8.5-10.1) L Phosphorus Level 3.0 MG/DL (2.5-4.9) Magnesium Level 1.7 MG/DL (1.8-2.4) L Current Medications Medications (Trade) Dose Ordered Sig/Charlene Route PRN Reason Start Time Stop Time Status Last Admin Dose Admin Amlodipine Besylate (Norvasc) 5 mg DAILY ORAL 12/27/18 09:00 01/26/19 08:59 12/30/18 09:25 Aspirin (Ecotrin) 81 mg DAILY ORAL 12/27/18 09:00 01/26/19 08:59 12/30/18 09:23 Citalopram Hydrobromide (celeXA) 40 mg QHS ORAL 12/27/18 21:00 01/26/19 20:59 12/29/18 20:09 Dextrose (Dextrose 50%) 25 ml Q30M PRN IV Hypoglycemia 12/27/18 00:45 01/26/19 00:44 Dextrose (Dextrose 50%) 50 ml Q30M PRN IV Hypoglycemia 12/27/18 00:45 01/26/19 00:44 Docusate Sodium (Colace) 100 mg TID ORAL 12/29/18 18:00 01/28/19 17:59 12/30/18 13:24 Ertapenem 1 gm/ Sodium Chloride 55 ml @ 110 mls/hr DAILY IVPB 12/30/18 09:00 01/05/19 23:59 12/30/18 09:22 Insulin Aspart (NovoLOG) BEFORE MEALS AND HS SUBQ 12/27/18 06:30 01/26/19 06:29 12/30/18 12:43 Iopamidol (Isovue-300 100ml) 100 ml NOW PRN INJ Radiology Procedure 12/26/18 18:00 Lorazepam (Ativan) 0.5 mg BIDPRN PRN ORAL For Anxiety 12/27/18 00:45 01/03/19 00:44 Multivitamins (Multivitamins) 1 tab DAILY ORAL 12/27/18 09:00 01/26/19 08:59 12/30/18 09:23 Oxybutynin Chloride (Ditropan) 2.5 mg BID ORAL 12/27/18 09:00 01/26/19 08:59 12/30/18 09:23 Polyethylene Glycol (Miralax) 17 gm BEDTIME ORAL 12/29/18 21:00 01/28/19 20:59 12/29/18 20:09 Sodium Chloride 1,000 ml @ 50 mls/hr Q20H IV 12/27/18 00:45 01/26/19 00:44 12/30/18 06:27 Frida Billings M.D. Dec 30, 2018 15:02
--- NOTE | 2018-12-30 15:54 | NUR ---
Report given to Lacey JONES at [facility],patient ID hospital band removed.IV remains in place and flushed with Normal Saline for patency.patient will continue with IV antibiotics.,[facility] will transport patient to facility. patient son aware of patient discharge today.Personal belongings give to ambulance personnel.Supra Pubic catheter dressing changed.
--- NOTE | 2019-01-01 20:39 | Discharge Summary ---
Discharge Summary Discharge Summary _ DATE OF ADMISSION: 12/26/2018 DATE OF DISCHARGE: 12/30/2018 DISCHARGED BY: Dr. Suad Loving CONSULTANTS: Dr. Frida Arevalo BRIEF HOSPITAL COURSE: Patient is an 87-year-old male, with history of dementia who came in with complaint of diarrhea at the assisted living. The patient had diarrhea 10 days prior to admission and was started on Flagyl. C. difficile was ordered, but apparently was not collected as outpatient. The patient was brought to the hospital because of continuous diarrhea and weakness. He has medical history significant for dementia, recurrent catheter associated urinary tract infection , history of sick sinus syndrome status post pacemaker placement, history of BPH , diabetes type 2, hypertension, depression, history of acute kidney injury and dehydration in the past. On evaluation at the ED, vital signs were stable. Blood work did not show any leukocytosis. Hemoglobin was 9.5 and hematocrit 30.7. Electrolytes were normal. BUN was elevated to 32 and creatinine to 1.6. Troponin was negative. Urinalysis showed 2+ protein, negative glucose, 3+ blood, 3+ leukocyte esterase , 5-10 urine RBC and 10-15 urine WBC. EKG was in normal sinus rhythm with no acute changes. Chest x-ray did not show any acute process. KUB showed abundant colonic stool. Abdominal and pelvic CT without contrast showed fecal impaction with rectal wall thickening and infiltration of the perirectal fat. Herniation of the anterior aspect of the bladder into a lower pelvic central ventral hernia. Evidence of palpable loose lower esophageal sphincter with free reflux into dilated distal esophagus. L5 compression fracture. Probable decubitus changes of lower gluteal region. Pericardial effusion, decreased. Renal lesions, most likely benign simple cysts. She was then admitted for possible catheter associated urinary tract infection, abdominal pain with diarrhea probably due to fecal impaction. He was given IV hydration. Kidney function was monitored. He was started on ertapenem for catheter associated UTI. C. difficile toxin was negative. He was given enalapril and Norvasc for blood pressure control. He was continued on Celexa for depression. Blood glucose was monitored. He was given insulin sliding scale. He was given bowel regimen. The pubic catheter was leaking. Urologist was consulted. On 12/28/2018, a new 24 Turkish suprapubic tube was inserted. Catheter was irrigated, and was in good position. He was given low-dose ditropan. He underwent manual digital disimpaction by GI. Stool OB was negative x2. He was given aggressive bowel regimen. Stool culture was negative. Urine culture showed growth of Proteus mirabilis. Patient has recurrent catheter associated urinary tract infection,, per ID will need long-term antibiotic prophylactic treatment to prevent recurrent CAUTI. Blood culture did not isolate any growth. He was eventually discharged back to intermediate to continue 7 more days of Invanz to complete a 10-day course of antibiotics. FINAL DIAGNOSES: Catheter associated urinary tract infection Diarrhea secondary to fecal impaction Hypertension Depression Diabetes mellitus type 2 Sinus sick syndrome status post pacemaker Weakness Leaky suprapubic catheter status post suprapubic catheter change DISPOSITION: Patient was discharged to a SNF. DISCHARGE MEDICATIONS: Refer to Discharge Medication List. I have been assigned to complete a discharge summary on this account, I was not involved with the patient's management.--ALEJANDRO Wong Jacqueline Robles NP Jan 01, 2019 20:39
== END 2018-12-30 16:15 | DRG 699 ==
LOC: EDBD 17:52 → EMR 18:20 → EDBEDREQ 18:22 → 4E 18:47 → EDBEDREQ 22:27 → 4E 12-30 12:52
PROC: 0T2BX0Z Change Drainage Device in Bladder, External Approach (ICD-10-PCS; principal; 2018-12-28)
DX: T83.510A Infection and inflammatory reaction due to cystostomy catheter, initial encounter (principal); K92.1 Melena; N17.9 Acute kidney failure, unspecified; E86.0 Dehydration; T83.030A Leakage of cystostomy catheter, initial encounter; Y84.6 Urinary catheterization as the cause of abnormal reaction of the patient, or of later complication, without mention of misadventure at the time of the procedure; F03.90 Unspecified dementia, unspecified severity, without behavioral disturbance, psychotic disturbance, mood disturbance, and anxiety; K56.41 Fecal impaction; E11.9 Type 2 diabetes mellitus without complications; N40.0 Benign prostatic hyperplasia without lower urinary tract symptoms; Z95.0 Presence of cardiac pacemaker; R19.7 Diarrhea, unspecified; B96.4 Proteus (mirabilis) (morganii) as the cause of diseases classified elsewhere; F32.9 Major depressive disorder, single episode, unspecified; N28.1 Cyst of kidney, acquired; N31.9 Neuromuscular dysfunction of bladder, unspecified; Z86.73 Personal history of transient ischemic attack (TIA), and cerebral infarction without residual deficits; K29.70 Gastritis, unspecified, without bleeding; I10 Essential (primary) hypertension
CPT/HCPCS: 36415; 71045; 74018; 74176; 80048; 80053; 81003; 82270; 82378; 82550; 82607; 82728; 82746; 82962; 83540; 83550; 83690; 83735; 84100; 84439; 84443; 84484; 85025; 85044; 85610; 85730; 87040; 87045; 87081; 87086; 87181; 87324; 99285; J1815

== ENCOUNTER 2019-03-28 09:08 | Inpatient (IN) | payer MEDICARE, MEDICAID ==
[~2019-03-28] VITALS: Ht 162.6 cm; Wt 62.2 kg
[~2019-03-28 09:08] MED LIST changes: +DULCOLAX10 MG RC; +ENEMA133 M1 RC; +METRONIDAZOLE500 MG ORAL; +MILK OF MA2400 MG/10 ORAL; +MULTIVITAMINS1 EAC8 ORAL; +TRADJENTA5 MG PO; +TYLENOL EXTRA500 MG ORAL
[2019-03-28] MEDS ORDERED: TRADJENTA5 MG PO (09:21)
[2019-03-28] MEDS ORDERED: IMODIUM A-1 MG/7.5 M PO (09:21)
--- NOTE | 2019-03-28 09:56 | Emergency Room Report ---
History of Present Illness General Chief Complaint: Male Urogenital Problems Source: Patient Present Illness HPI Patient is a 88-year-old male presents after increased lower abdominal discomfort. Patient was sent in from facility for further evaluation and treatment. Patient had been receiving patient recent been seen in this emergency department had been prescribed antibiotics for urinary infection. Patient was noted to have a resistant organism. Suprapubic catheter had been changed at that time. Patient's urine culture grew out Proteus at that time. Patient had reportedly not been vomiting. History is markedly limited by patient's dementia. Allergies: Coded Allergies: No Known Allergies (Unverified , 11/26/14) Patient History Past Medical History: see triage record Reviewed Nursing Documentation: PMH: Agreed; PSxH: Agreed Nursing Documentation-PMH Past Medical History: No History, Except For Hx Hypertension: Yes Hx Diabetes: Yes Hx Cancer: No Hx Gastrointestinal Problems: No History Of Psychiatric Problem: Yes - ANXIETY, DEPRESSION Hx Neurological Problems: Yes Hx Transient Ischemic Attacks: Yes Hx Dementia: Yes Review of Systems All Other Systems: negative except mentioned in HPI Physical Exam Vital Signs Date Time Temp Pulse Resp B/P (MAP) Pulse Ox O2 Delivery O2 Flow Rate FiO2 03/28/19 09:09 98.4 60 16 129/70 (89) 91 Room Air Sp02 EP Interpretation: reviewed, normal General Appearance: non-toxic, Chronically Ill Head: atraumatic ENT: dry mucus membranes Neck: supple, limited range of motion Respiratory: lungs clear, normal breath sounds, no respiratory distress, no retraction, no wheezing Cardiovascular #1: regular rate, rhythm, no edema Gastrointestinal: normal inspection, normal bowel sounds, non tender, soft, no guarding, no hernia Genitourinary: no CVA tenderness, other - rash to penis with excoriation, minimal erythema Musculoskeletal: normal inspection, back normal, normal range of motion Neurologic: motor weakness, responsive, other - confused Psychiatric: depressed affect Medical Decision Making Diagnostic Impression: Primary Impression: Suprapubic catheter dysfunction Additional Impressions: Catheter-associated urinary tract infection Dehydration ER Course . Patient presented for increased lower abdominal pain. Differential diagnosis include was not limited to urinary tract infection, renal failure, Belle gangrene among others. Because of complexity of patient's case laboratory tests and imaging studies were ordered. Patient's laboratory testing showed evidence of continued urinary infection. Patient's suprapubic catheter was changed with a 24 Somali catheter. With sterile technique. Balloon was inflated to 10 cc. Patient tolerated this well. He was started on IV fluids. He will be given IV antibiotics. Patient was discussed with Dr. Sweeney who agreed to admit the patient. Labs Test 03/28/19 09:50 03/28/19 10:15 White Blood Count 6.4 K/UL (4.8-10.8) Red Blood Count 4.21 M/UL (4.70-6.10) Hemoglobin 9.5 G/DL (14.2-18.0) Hematocrit 30.6 % (42.0-52.0) Mean Corpuscular Volume 73 FL (80-99) Mean Corpuscular Hemoglobin 22.6 PG (27.0-31.0) Mean Corpuscular Hemoglobin Concent 31.1 G/DL (32.0-36.0) Red Cell Distribution Width 12.7 % (11.6-14.8) Platelet Count 196 K/UL (150-450) Mean Platelet Volume 5.5 FL (6.5-10.1) Neutrophils (%) (Auto) 61.2 % (45.0-75.0) Lymphocytes (%) (Auto) 21.6 % (20.0-45.0) Monocytes (%) (Auto) 6.5 % (1.0-10.0) Eosinophils (%) (Auto) 9.9 % (0.0-3.0) Basophils (%) (Auto) 0.9 % (0.0-2.0) Sodium Level 141 MMOL/L (136-145) Potassium Level 4.5 MMOL/L (3.5-5.1) Chloride Level 107 MMOL/L (98-107) Carbon Dioxide Level 30 MMOL/L (21-32) Anion Gap 4 mmol/L (5-15) Blood Urea Nitrogen 31 mg/dL (7-18) Creatinine 1.5 MG/DL (0.55-1.30) Estimat Glomerular Filtration Rate mL/min (>60) Glucose Level 98 MG/DL (74-106) Calcium Level 8.1 MG/DL (8.5-10.1) Total Bilirubin 0.7 MG/DL (0.2-1.0) Aspartate Amino Transf (AST/SGOT) 17 U/L (15-37) Alanine Aminotransferase (ALT/SGPT) 18 U/L (12-78) Alkaline Phosphatase 75 U/L (46-116) Total Protein 6.1 G/DL (6.4-8.2) Albumin 3.3 G/DL (3.4-5.0) Globulin 2.8 g/dL Albumin/Globulin Ratio 1.2 (1.0-2.7) Urine Color Pale yellow Urine Appearance Clear Urine pH 5 (4.5-8.0) Urine Specific [place] 1.015 (1.005-1.035) Urine Protein 3+ (NEGATIVE) Urine Glucose (UA) Negative (NEGATIVE) Urine Ketones Negative (NEGATIVE) Urine Blood 3+ (NEGATIVE) Urine Nitrite Negative (NEGATIVE) Urine Bilirubin Negative (NEGATIVE) Urine Urobilinogen Normal MG/DL (0.0-1.0) Urine Leukocyte Esterase 1+ (NEGATIVE) Urine RBC 10-15 /HPF (0 - 0) Urine WBC 5-10 /HPF (0 - 0) Urine Squamous Epithelial Cells Few /LPF (NONE/OCC) Urine Bacteria Few /HPF (NONE) Urine Mucus Few /LPF (NONE/OCC) Last Vital Signs Date Time Temp Pulse Resp B/P (MAP) Pulse Ox O2 Delivery O2 Flow Rate FiO2 03/28/19 09:09 98.4 60 16 129/70 (89) 91 Room Air Status: unchanged Disposition: ADMITTED INPATIENT Condition: Stable Referrals: Suad Loving MD (PCP) Link Carlson MD Mar 28, 2019 09:56
[2019-03-28 09:57] LABS: BASOPHILS % (AUTO) 0.9 % (0.0-2.0); EOSINOPHILS % (AUTO) 9.9 % (0.0-3.0); HEMATOCRIT 30.6 % (42.0-52.0); HEMOGLOBIN 9.5 G/DL (14.2-18.0); LYMPHOCYTES % (AUTO) 21.6 % (20.0-45.0); MEAN CORPUSCULAR VOLUME 73 FL (80-99); MONOCYTES % (AUTO) 6.5 % (1.0-10.0); NEUTROPHILS % (AUTO) 61.2 % (45.0-75.0); PLATELET COUNT 196 K/UL (150-450); RED BLOOD COUNT 4.21 M/UL (4.70-6.10); RED CELL DISTRIBUTION WIDTH 12.7 % (11.6-14.8); WHITE BLOOD COUNT 6.4 K/UL (4.8-10.8)
[2019-03-28 10:11] LABS: ANION GAP 4 mmol/L (5-15); BLOOD UREA NITROGEN 31 mg/dL (7-18); CALCIUM 8.1 MG/DL (8.5-10.1); CARBON DIOXIDE 30 MMOL/L (21-32); CHLORIDE 107 MMOL/L (98-107); CREATININE 1.5 MG/DL (0.55-1.30); POTASSIUM 4.5 MMOL/L (3.5-5.1); SODIUM 141 MMOL/L (136-145)
[2019-03-28 10:18] LABS: ALANINE AMINOTRANSFERASE 18 U/L (12-78); ALBUMIN 3.3 G/DL (3.4-5.0); ALBUMIN/GLOBULIN RATIO 1.2 (1.0-2.7); ALKALINE PHOSPHATASE 75 U/L (46-116); ASPARTATE AMINO TRANSFERASE 17 U/L (15-37); BILIRUBIN,TOTAL 0.7 MG/DL (0.2-1.0)
[2019-03-28 10:36] LABS: APPEARANCE,URINE CLEAR; BILIRUBIN, URINE NEGATIVE (NEGATIVE); COLOR,URINE PALE YELLOW; GLUCOSE, URINE (UA) NEGATIVE (NEGATIVE); KETONES,URINE NEGATIVE (NEGATIVE); LEUKOCYTE ESTERASE ,URINE 1+ (NEGATIVE); NITRITE,URINE NEGATIVE (NEGATIVE); PH,URINE 5 (4.5-8.0); PROTEIN,URINE 3+ (NEGATIVE); UROBILINOGEN,URINE NORMAL MG/DL (0.0-1.0)
[2019-03-28 12:03] VITALS: BP 129/70
[2019-03-28 13:02] VITALS: BP 148/73
[2019-03-28] MEDS ORDERED: Piperacillin/Tazobactam 3.375 GM in NS 110 ML IVPB ONE (13:15)
[2019-03-28] MEDS ORDERED: Fleet's Enema 133ml RECTAL PRN (15:45)
[2019-03-28] MEDS ORDERED: Milk of Magnesia 30ml Ud ORAL PRN (15:45)
[2019-03-28 16:00] VITALS: BP 104/65
[2019-03-28] MEDS: Oxybutynin 5mg tab ORAL SCH (17:38)
[2019-03-28] MEDS ORDERED: Ertapenem 1 GM in NS 55 ML IVPB SCH (18:00)
--- NOTE | 2019-03-28 18:32 | General Progress Note ---
Assessment/Plan Assessment/Plan: full H&P was dictated. Subjective Date patient seen: Mar 28, 2019 Time patient seen: 18:00 Allergies: Coded Allergies: No Known Allergies (Unverified , 11/26/14) Objective Last 24 Hour Vital Signs Date Time Temp Pulse Resp B/P (MAP) Pulse Ox O2 Delivery O2 Flow Rate FiO2 03/28/19 15:18 Room Air 03/28/19 13:02 96.8 68 15 148/73 94 Room Air 03/28/19 12:03 98.4 70 16 129/70 94 Room Air 03/28/19 09:09 98.4 60 16 129/70 (89) 91 Room Air Laboratory Tests 03/28/19 09:50: White Blood Count 6.4, Red Blood Count 4.21L, Hemoglobin 9.5L, Hematocrit 30.6L , Mean Corpuscular Volume 73L, Mean Corpuscular Hemoglobin 22.6L, Mean Corpuscular Hemoglobin Concent 31.1L, Red Cell Distribution Width 12.7, Platelet Count 196, Mean Platelet Volume 5.5L, Neutrophils (%) (Auto) 61.2, Lymphocytes (%) (Auto) 21.6, Monocytes (%) (Auto) 6.5, Eosinophils (%) (Auto) 9.9H, Basophils (%) (Auto) 0.9, Sodium Level 141, Potassium Level 4.5, Chloride Level 107, Carbon Dioxide Level 30, Anion Gap 4L, Blood Urea Nitrogen 31H, Creatinine 1.5H, Estimat Glomerular Filtration Rate , Glucose Level 98, Calcium Level 8.1L, Total Bilirubin 0.7, Aspartate Amino Transf (AST/SGOT) 17, Alanine Aminotransferase (ALT/SGPT) 18, Alkaline Phosphatase 75, Total Protein 6.1L, Albumin 3.3L, Globulin 2.8, Albumin/Globulin Ratio 1.2 03/28/19 10:15: Urine Color Pale yellow, Urine Appearance Clear, Urine pH 5, Urine Specific [place] 1.015, Urine Protein 3+H, Urine Glucose (UA) Negative, Urine Ketones Negative, Urine Blood 3+H, Urine Nitrite Negative, Urine Bilirubin Negative, Urine Urobilinogen Normal, Urine Leukocyte Esterase 1+H, Urine RBC 10-15H, Urine WBC 5-10H, Urine Squamous Epithelial Cells Few, Urine Bacteria Few, Urine Mucus FewH Height (Feet): 5 Height (Inches): 4.00 Weight (Pounds): 145 Suad Loving MD Mar 28, 2019 18:32
[2019-03-28 20:00] VITALS: BP 137/69
[2019-03-28] MEDS ORDERED: Ertapenem 0.5 GM in NS 55 ML IVPB SCH (20:00)
--- NOTE | 2019-03-28 20:47 | Infectious Diseases Prog Note ---
Assessment/Plan Problems: (1) Catheter-associated urinary tract infection Assessment & Plan: culture grew ESBL producing Proteus Mirabilis on 03/23 , continue ertapenem pending repeated urine culture , had his suprapubic catheter replaced (2) Penis, cellulitis Assessment & Plan: continue ertapenem, add doxycycline empirically , local care as per hospital protocol (3) Dehydration Assessment & Plan: due to poor oral intake, continue IVF for hydration , monitor electrolytes (4) Suprapubic catheter dysfunction Assessment & Plan: S/P replacement (5) ARF (acute renal failure) Assessment & Plan: due to dehydration , and suprapubic catheter dysfunction , continue hydration, avoid nephrotoxics Subjective Allergies: Coded Allergies: No Known Allergies (Unverified , 11/26/14) Objective Vital Signs Last 24 Hour Vital Signs Date Time Temp Pulse Resp B/P (MAP) Pulse Ox O2 Delivery O2 Flow Rate FiO2 03/28/19 19:22 96.8 66 20 132/86 98 Room Air 03/28/19 16:00 97.5 61 18 104/65 (78) 97 03/28/19 15:18 Room Air 03/28/19 13:02 96.8 68 15 148/73 94 Room Air 03/28/19 12:03 98.4 70 16 129/70 94 Room Air 03/28/19 09:09 98.4 60 16 129/70 (89) 91 Room Air Height (Feet): 5 Height (Inches): 4.00 Weight (Pounds): 145 Laboratory Tests Test 03/28/19 09:50 03/28/19 10:15 White Blood Count 6.4 K/UL (4.8-10.8) Red Blood Count 4.21 M/UL (4.70-6.10) L Hemoglobin 9.5 G/DL (14.2-18.0) L Hematocrit 30.6 % (42.0-52.0) L Mean Corpuscular Volume 73 FL (80-99) L Mean Corpuscular Hemoglobin 22.6 PG (27.0-31.0) L Mean Corpuscular Hemoglobin Concent 31.1 G/DL (32.0-36.0) L Red Cell Distribution Width 12.7 % (11.6-14.8) Platelet Count 196 K/UL (150-450) Mean Platelet Volume 5.5 FL (6.5-10.1) L Neutrophils (%) (Auto) 61.2 % (45.0-75.0) Lymphocytes (%) (Auto) 21.6 % (20.0-45.0) Monocytes (%) (Auto) 6.5 % (1.0-10.0) Eosinophils (%) (Auto) 9.9 % (0.0-3.0) H Basophils (%) (Auto) 0.9 % (0.0-2.0) Sodium Level 141 MMOL/L (136-145) Potassium Level 4.5 MMOL/L (3.5-5.1) Chloride Level 107 MMOL/L (98-107) Carbon Dioxide Level 30 MMOL/L (21-32) Anion Gap 4 mmol/L (5-15) L Blood Urea Nitrogen 31 mg/dL (7-18) H Creatinine 1.5 MG/DL (0.55-1.30) H Estimat Glomerular Filtration Rate mL/min (>60) Glucose Level 98 MG/DL (74-106) Calcium Level 8.1 MG/DL (8.5-10.1) L Total Bilirubin 0.7 MG/DL (0.2-1.0) Aspartate Amino Transf (AST/SGOT) 17 U/L (15-37) Alanine Aminotransferase (ALT/SGPT) 18 U/L (12-78) Alkaline Phosphatase 75 U/L (46-116) Total Protein 6.1 G/DL (6.4-8.2) L Albumin 3.3 G/DL (3.4-5.0) L Globulin 2.8 g/dL Albumin/Globulin Ratio 1.2 (1.0-2.7) Urine Color Pale yellow Urine Appearance Clear Urine pH 5 (4.5-8.0) Urine Specific [place] 1.015 (1.005-1.035) Urine Protein 3+ (NEGATIVE) H Urine Glucose (UA) Negative (NEGATIVE) Urine Ketones Negative (NEGATIVE) Urine Blood 3+ (NEGATIVE) H Urine Nitrite Negative (NEGATIVE) Urine Bilirubin Negative (NEGATIVE) Urine Urobilinogen Normal MG/DL (0.0-1.0) Urine Leukocyte Esterase 1+ (NEGATIVE) H Urine RBC 10-15 /HPF (0 - 0) H Urine WBC 5-10 /HPF (0 - 0) H Urine Squamous Epithelial Cells Few /LPF (NONE/OCC) Urine Bacteria Few /HPF (NONE) Urine Mucus Few /LPF (NONE/OCC) H Current Medications Medications (Trade) Dose Ordered Sig/Charlene Route PRN Reason Start Time Stop Time Status Last Admin Dose Admin Acetaminophen (Tylenol) 650 mg Q6H PRN ORAL Mild Pain/Temp > 100.5 03/28/19 15:45 04/27/19 15:44 Amlodipine Besylate (Norvasc) 5 mg DAILY ORAL 03/29/19 09:00 04/28/19 08:59 Aspirin (Ecotrin) 81 mg DAILY ORAL 03/29/19 09:00 04/28/19 08:59 Bisacodyl (Dulcolax) 10 mg DAILYPRN PRN RECTAL Constipation 03/28/19 16:00 04/27/19 15:44 Citalopram Hydrobromide (celeXA) 40 mg DAILY ORAL 03/29/19 09:00 04/28/19 08:59 Enalapril Maleate (Vasotec) 20 mg DAILY ORAL 03/29/19 09:00 04/28/19 08:59 Ertapenem 0.5 gm/ Sodium Chloride 55 ml @ 110 mls/hr Q24H IVPB 03/28/19 20:00 04/02/19 19:59 Magnesium Hydroxide (Mom) 30 ml DAILYPRN PRN ORAL Constipation 03/28/19 15:45 04/27/19 15:44 Multivitamins (Multivitamins) 1 tab DAILY ORAL 03/29/19 09:00 04/28/19 08:59 Oxybutynin Chloride (Ditropan) 2.5 mg BID ORAL 03/28/19 18:00 04/27/19 17:59 03/28/19 17:38 Sodium Chloride 1,000 ml @ 50 mls/hr Q20H IV 03/28/19 15:45 04/27/19 15:44 03/28/19 17:37 Sodium Phosphate (Fleet's Sodium Phosl Enema) 133 ml DAILYPRN PRN RECTAL Constipation 03/28/19 15:45 04/27/19 15:44 Frida Billings M.D. Mar 28, 2019 20:47
--- NOTE | 2019-03-28 21:02 | History and Physical Report ---
DATE OF ADMISSION: 03/28/2019 CHIEF COMPLAINT: Dysuria and suprapubic catheter pain. HISTORY OF PRESENT ILLNESS: This is an 88-year-old male with a long history of dementia with history of recurrent urinary tract infection with ESBL positive due to chronic suprapubic catheter who came in to ER for Dysuria and pain on his penus. The patient has also been less active and more bed-bound at the assisted living where he resides and needs higher level of care from this point onward. The patient denied any nausea or vomiting. No diarrhea. PAST MEDICAL HISTORY: Includes history of dementia, hypertension, overactive bladder, diabetes mellitus type 2, osteoarthritis, and gait instability. ALLERGIES: No known drug allergies. SOCIAL HISTORY: No history of smoking. No alcohol use. No IV drug use. The patient resides in assisted living. FAMILY HISTORY: Noncontributory. REVIEW OF SYSTEMS: Negative except for HPI. PHYSICAL EXAMINATION: VITAL SIGNS: Include temperature 98.4, pulse 60, respirations 16, and blood pressure 129/70. Pulse oximetry 91% on room air. GENERAL APPEARANCE: He is alert and oriented x1. HEENT: Normocephalic and normochromic. Extraocular muscles intact. Throat is clear. NECK: Supple. No lymphadenopathy. LUNGS: Clear to auscultation bilaterally. No rales or rhonchi. CARDIOVASCULAR: Regular rate and rhythm. No murmur. No gallop. ABDOMEN: Soft, nontender, and nondistended. Positive bowel sounds. GENITOURINARY: No CVA tenderness. Positive suprapubic tenderness around the catheter. NEUROLOGIC: Slight motor lower extremity weakness. No sensory deficit. SKIN: Showed positive irritation and abrasion of the penile head. LABORATORY AND DIAGNOSTIC DATA: Include WBC 6.4, hemoglobin 9.5, hematocrit 30.6, and platelet count 196,000. Neutrophils 61, lymphocytes 21.6, monos 6.5. Sodium 141, potassium 4.5, chloride 107, carbon dioxide 30, BUN 31, and creatinine 1.5. Glucose 98. Calcium 8.1. AST 17, ALT 18. Total protein 6.1. Albumin 3.3. UA showed 10 to 15 rbc's, 5 to 10 wbc's, few mucus epithelial cells, +3 blood, and +3 protein. IMPRESSION: 1. Urinary tract infection, ESBL positive. We will start the patient on IV antibiotic ertapenem 1 g IV daily and follow the urine culture. 2. Dehydration. We will start the patient on IV fluid normal saline at 50 mL an hour. 3. Suprapubic catheter dysfunction. Catheter was changed in the emergency room. 4. Hypertension. We will follow home medications and monitor blood pressure. 5. Diabetes mellitus type 2, well controlled on home medications. We will monitor the blood sugar in the hospital. 6. Gait instability. We will transfer the patient to the long term for possible long-term care. 7. Dementia. We will put the patient back on the home medication. The patient will be admitted for minimum of 2-night stay for the diagnosis of urinary tract infection for IV antibiotic. Suad Loving M.D. DR: ALISSA JOB#: [id number] CC: EMILY
[2019-03-28] MEDS: Doxycycline Hyclate 100 MG in D5W 110 ML IV SCH (21:44)
--- NOTE | 2019-03-28 22:12 | Urology Progress Note ---
Assessment/Plan Assessment/Plan: BPH hx urinary retention with chronic SPT urethral stx hx probable neurogenic bladder hematuria pyuria/UTI hx/colonized balanitis renal cyst monitor clinically SPT was exchanged in the ER today draining well hand irrigate PRN abx as ordered oxybutynin, can increase dose if needed local care for penile glans cysto as outpt d/w Dr. Loving thanks, Subjective Allergies: Coded Allergies: No Known Allergies (Unverified , 11/26/14) Subjective all noted, initial evaluation pt known to me, hx of BPH, urethral stx chronic SPT, hx of UTI/colonized SPT leakage, cath of exchanged in ER today some report of bleeding per penis in SNF no bleeding noted by nurses PMH/chart all noted Objective Last 24 Hour Vital Signs Date Time Temp Pulse Resp B/P (MAP) Pulse Ox O2 Delivery O2 Flow Rate FiO2 03/28/19 20:00 99.3 69 17 137/69 (91) 92 03/28/19 19:22 96.8 66 20 132/86 98 Room Air 03/28/19 16:00 97.5 61 18 104/65 (78) 97 03/28/19 15:18 Room Air 03/28/19 13:02 96.8 68 15 148/73 94 Room Air 03/28/19 12:03 98.4 70 16 129/70 94 Room Air 03/28/19 09:09 98.4 60 16 129/70 (89) 91 Room Air Current Medications Medications (Trade) Dose Ordered Sig/Charlene Route PRN Reason Start Time Stop Time Status Last Admin Dose Admin Acetaminophen (Tylenol) 650 mg Q6H PRN ORAL Mild Pain/Temp > 100.5 03/28/19 15:45 04/27/19 15:44 Amlodipine Besylate (Norvasc) 5 mg DAILY ORAL 03/29/19 09:00 04/28/19 08:59 Aspirin (Ecotrin) 81 mg DAILY ORAL 03/29/19 09:00 04/28/19 08:59 Bisacodyl (Dulcolax) 10 mg DAILYPRN PRN RECTAL Constipation 03/28/19 16:00 04/27/19 15:44 Citalopram Hydrobromide (celeXA) 40 mg DAILY ORAL 03/29/19 09:00 04/28/19 08:59 Doxycycline Hyclate 100 mg/ Dextrose 110 ml @ 110 mls/hr Q12HR@1000,2200 IV 03/28/19 22:00 04/04/19 21:59 03/28/19 21:44 Enalapril Maleate (Vasotec) 20 mg DAILY ORAL 03/29/19 09:00 04/28/19 08:59 Ertapenem 0.5 gm/ Sodium Chloride 55 ml @ 110 mls/hr Q24H IVPB 03/28/19 20:00 04/02/19 19:59 03/28/19 20:54 Magnesium Hydroxide (Mom) 30 ml DAILYPRN PRN ORAL Constipation 03/28/19 15:45 04/27/19 15:44 Multivitamins (Multivitamins) 1 tab DAILY ORAL 03/29/19 09:00 04/28/19 08:59 Oxybutynin Chloride (Ditropan) 2.5 mg BID ORAL 03/28/19 18:00 04/27/19 17:59 03/28/19 17:38 Sodium Chloride 1,000 ml @ 50 mls/hr Q20H IV 03/28/19 15:45 04/27/19 15:44 03/28/19 17:37 Sodium Phosphate (Fleet's Sodium Phosl Enema) 133 ml DAILYPRN PRN RECTAL Constipation 03/28/19 15:45 04/27/19 15:44 Laboratory Tests 03/28/19 09:50: White Blood Count 6.4, Red Blood Count 4.21L, Hemoglobin 9.5L, Hematocrit 30.6L , Mean Corpuscular Volume 73L, Mean Corpuscular Hemoglobin 22.6L, Mean Corpuscular Hemoglobin Concent 31.1L, Red Cell Distribution Width 12.7, Platelet Count 196, Mean Platelet Volume 5.5L, Neutrophils (%) (Auto) 61.2, Lymphocytes (%) (Auto) 21.6, Monocytes (%) (Auto) 6.5, Eosinophils (%) (Auto) 9.9H, Basophils (%) (Auto) 0.9, Sodium Level 141, Potassium Level 4.5, Chloride Level 107, Carbon Dioxide Level 30, Anion Gap 4L, Blood Urea Nitrogen 31H, Creatinine 1.5H, Estimat Glomerular Filtration Rate , Glucose Level 98, Calcium Level 8.1L, Total Bilirubin 0.7, Aspartate Amino Transf (AST/SGOT) 17, Alanine Aminotransferase (ALT/SGPT) 18, Alkaline Phosphatase 75, Total Protein 6.1L, Albumin 3.3L, Globulin 2.8, Albumin/Globulin Ratio 1.2 03/28/19 10:15: Urine Color Pale yellow, Urine Appearance Clear, Urine pH 5, Urine Specific [place] 1.015, Urine Protein 3+H, Urine Glucose (UA) Negative, Urine Ketones Negative, Urine Blood 3+H, Urine Nitrite Negative, Urine Bilirubin Negative, Urine Urobilinogen Normal, Urine Leukocyte Esterase 1+H, Urine RBC 10-15H, Urine WBC 5-10H, Urine Squamous Epithelial Cells Few, Urine Bacteria Few, Urine Mucus FewH Height (Feet): 5 Height (Inches): 4.00 Weight (Pounds): 145 Objective exam shows 24f SPT urine is grossly yellow there is some erythema of glans Camilo Arevalo MD Mar 28, 2019 22:12
[2019-03-29] VITALS (7 sets, daily range): BP systolic 106–138; BP diastolic 47–69
[2019-03-29 06:30] LABS: BASOPHILS % (AUTO) 1.3 % (0.0-2.0); EOSINOPHILS % (AUTO) 5.6 % (0.0-3.0); HEMATOCRIT 28.7 % (42.0-52.0); HEMOGLOBIN 9.1 G/DL (14.2-18.0); LYMPHOCYTES % (AUTO) 16.2 % (20.0-45.0); MEAN CORPUSCULAR VOLUME 73 FL (80-99); MONOCYTES % (AUTO) 8.4 % (1.0-10.0); NEUTROPHILS % (AUTO) 68.5 % (45.0-75.0); PLATELET COUNT 171 K/UL (150-450); RED BLOOD COUNT 3.93 M/UL (4.70-6.10); RED CELL DISTRIBUTION WIDTH 12.5 % (11.6-14.8); WHITE BLOOD COUNT 5.4 K/UL (4.8-10.8)
[2019-03-29 06:53] LABS: ANION GAP 8 mmol/L (5-15); BLOOD UREA NITROGEN 25 mg/dL (7-18); CARBON DIOXIDE 27 MMOL/L (21-32); CHLORIDE 108 MMOL/L (98-107); CREATININE 1.3 MG/DL (0.55-1.30); POTASSIUM 4.2 MMOL/L (3.5-5.1); SODIUM 143 MMOL/L (136-145)
[2019-03-29] MEDS: Aspirin EC 81mg tab ORAL SCH (08:34)
[2019-03-29] MEDS: Oxybutynin 5mg tab ORAL SCH ×2 (08:35→18:17)
[2019-03-29] MEDS: Citalopram Hydrobromide 10mg Tab ORAL SCH (08:47)
--- NOTE | 2019-03-29 08:49 | General Progress Note ---
Assessment/Plan Status: stable Assessment/Plan: 1. ESBL proteus UTI - cont Ertapenam 1 gm IV daily. promotion manager consult for D/ C planning on wednesday for [facility] or Briseida Garcia. 2. Balanitis - cont Doxycycline 100 mg IV BID. 3. Dehydration - improved. cont IVF. 4. Advanced Dementia - off meds per family request. 5. HTN - cont Enalopril 20 mg one po daily and norvasc 5 mg daily 6. SSS with history of Pacemaker Placement 7. neurogenic bladder - on oxybutynin. 8. DM II - well controlled. off tradenta as inpatient. 9. Depression - cont celexa 40 mg one po qhs Subjective Date patient seen: Mar 29, 2019 Time patient seen: 08:30 Constitutional: Reports: weakness HEENT: Reports: no symptoms Cardiovascular: Reports: no symptoms Respiratory: Reports: no symptoms Gastrointestinal/Abdominal: Reports: no symptoms Genitourinary: Reports: no symptoms Neurologic/Psychiatric: Reports: no symptoms Endocrine: Reports: no symptoms Hematologic/Lymphatic: Reports: no symptoms Allergies: Coded Allergies: No Known Allergies (Unverified , 11/26/14) Subjective This morning he had fever 100.5. no nausea or vomiting. no sob or chest pain. Objective Last 24 Hour Vital Signs Date Time Temp Pulse Resp B/P (MAP) Pulse Ox O2 Delivery O2 Flow Rate FiO2 03/29/19 04:00 97.0 61 17 106/47 (66) 95 03/29/19 00:13 99.7 03/29/19 00:00 100.5 62 17 116/48 (70) 95 03/28/19 21:00 Room Air 03/28/19 20:00 99.3 69 17 137/69 (91) 92 03/28/19 19:22 96.8 66 20 132/86 98 Room Air 03/28/19 16:00 97.5 61 18 104/65 (78) 97 03/28/19 15:18 Room Air 03/28/19 13:02 96.8 68 15 148/73 94 Room Air 03/28/19 12:03 98.4 70 16 129/70 94 Room Air 03/28/19 09:09 98.4 60 16 129/70 (89) 91 Room Air Intake and Output 03/28/19 03/29/19 19:00 07:00 Intake Total 450 ml 1770 ml Output Total 200 ml 600 ml Balance 250 ml 1170 ml Intake IV Total 450 ml 1770 ml Output Urine Total 200 ml 600 ml Laboratory Tests 03/28/19 09:50: White Blood Count 6.4, Red Blood Count 4.21L, Hemoglobin 9.5L, Hematocrit 30.6L , Mean Corpuscular Volume 73L, Mean Corpuscular Hemoglobin 22.6L, Mean Corpuscular Hemoglobin Concent 31.1L, Red Cell Distribution Width 12.7, Platelet Count 196, Mean Platelet Volume 5.5L, Neutrophils (%) (Auto) 61.2, Lymphocytes (%) (Auto) 21.6, Monocytes (%) (Auto) 6.5, Eosinophils (%) (Auto) 9.9H, Basophils (%) (Auto) 0.9, Sodium Level 141, Potassium Level 4.5, Chloride Level 107, Carbon Dioxide Level 30, Anion Gap 4L, Blood Urea Nitrogen 31H, Creatinine 1.5H, Estimat Glomerular Filtration Rate , Glucose Level 98, Calcium Level 8.1L, Total Bilirubin 0.7, Aspartate Amino Transf (AST/SGOT) 17, Alanine Aminotransferase (ALT/SGPT) 18, Alkaline Phosphatase 75, Total Protein 6.1L, Albumin 3.3L, Globulin 2.8, Albumin/Globulin Ratio 1.2 03/28/19 10:15: Urine Color Pale yellow, Urine Appearance Clear, Urine pH 5, Urine Specific [place] 1.015, Urine Protein 3+H, Urine Glucose (UA) Negative, Urine Ketones Negative, Urine Blood 3+H, Urine Nitrite Negative, Urine Bilirubin Negative, Urine Urobilinogen Normal, Urine Leukocyte Esterase 1+H, Urine RBC 10-15H, Urine WBC 5-10H, Urine Squamous Epithelial Cells Few, Urine Bacteria Few, Urine Mucus FewH 03/29/19 05:30: White Blood Count 5.4, Red Blood Count 3.93L, Hemoglobin 9.1L, Hematocrit 28.7L , Mean Corpuscular Volume 73L, Mean Corpuscular Hemoglobin 23.1L, Mean Corpuscular Hemoglobin Concent 31.6L, Red Cell Distribution Width 12.5, Platelet Count 171, Mean Platelet Volume 5.6L, Neutrophils (%) (Auto) 68.5, Lymphocytes (%) (Auto) 16.2L, Monocytes (%) (Auto) 8.4, Eosinophils (%) (Auto) 5.6H, Basophils (%) (Auto) 1.3, Sodium Level 143, Potassium Level 4.2, Chloride Level 108H, Carbon Dioxide Level 27, Anion Gap 8, Blood Urea Nitrogen 25H, Creatinine 1.3, Estimat Glomerular Filtration Rate , Glucose Level 96, Calcium Level 8.0L Height (Feet): 5 Height (Inches): 4.00 Weight (Pounds): 130 General Appearance: no apparent distress, alert EENT: normal ENT inspection Neck: non-tender, supple Cardiovascular: normal rate, regular rhythm Respiratory/Chest: chest wall non-tender, lungs clear, normal breath sounds Abdomen: normal bowel sounds, non tender, soft Extremities: non-tender Edema: no edema noted Arm (L), no edema noted Arm (R), no edema noted Leg (L), no edema noted Leg (R), no edema noted Pedal (L), no edema noted Pedal (R), no edema noted Generalized Neurologic: alert, responsive Skin: warm/dry Suad Loving MD Mar 29, 2019 08:49
[2019-03-29] MEDS: Doxycycline Hyclate 100 MG in D5W 110 ML IV SCH ×2 (12:22→22:08)
--- NOTE | 2019-03-29 12:59 | Infectious Diseases Prog Note ---
Assessment/Plan Problems: (1) Catheter-associated urinary tract infection Assessment & Plan: culture grew ESBL producing Proteus Mirabilis on 03/23 , continue ertapenem for now pending repeated urine culture , had his suprapubic catheter replaced in ED already (2) Penis, cellulitis Assessment & Plan: on ertapenem, and doxycycline empirically , continue local care as per hospital protocol (3) Dehydration Assessment & Plan: due to poor oral intake, continue IVF for hydration , monitor electrolytes (4) Suprapubic catheter dysfunction Assessment & Plan: S/P replacement (5) ARF (acute renal failure) Assessment & Plan: due to dehydration , and suprapubic catheter dysfunction , continue hydration, avoid nephrotoxics , close monitor of renal function Subjective ROS Limited/Unobtainable: Yes Allergies: Coded Allergies: No Known Allergies (Unverified , 11/26/14) Subjective He was resting in bed comfortable, responsive to verbal commands, afebrile, no urine leak around the suprapubic catheter, penis tip looks more dry today with less exudate Objective Vital Signs Last 24 Hour Vital Signs Date Time Temp Pulse Resp B/P (MAP) Pulse Ox O2 Delivery O2 Flow Rate FiO2 03/29/19 09:36 97.3 61 18 123/69 (87) 95 03/29/19 09:00 Room Air 03/29/19 08:36 123/69 03/29/19 08:36 61 123/69 03/29/19 08:00 97.3 61 18 123/69 (87) 95 03/29/19 04:00 97.0 61 17 106/47 (66) 95 03/29/19 00:13 99.7 03/29/19 00:00 100.5 62 17 116/48 (70) 95 03/28/19 21:00 Room Air 03/28/19 20:00 99.3 69 17 137/69 (91) 92 03/28/19 19:22 96.8 66 20 132/86 98 Room Air 03/28/19 16:00 97.5 61 18 104/65 (78) 97 03/28/19 15:18 Room Air 03/28/19 13:02 96.8 68 15 148/73 94 Room Air Height (Feet): 5 Height (Inches): 4.00 Weight (Pounds): 130 General Appearance: no acute distress, cachetic HEENT: normocephalic, atraumatic, anicteric, mucous membranes moist, PERRL Respiratory/Chest: chest wall non-tender, lungs clear, normal breath sounds, no respiratory distress, no accessory muscle use Cardiovascular: normal peripheral pulses, normal rate, regular rhythm, no gallop/murmur, no JVD Abdomen: normal bowel sounds, soft, non tender, no organomegaly, non distended , no mass, no scars Genitourinary: other - penis tip with cellulitis and redness , suprapubic catheter in place Extremities: no cyanosis, no clubbing Skin: no rash, no lesions Neurologic/Psychiatric: responsive Lymphatic: no neck adenopathy, no groin adenopathy Musculoskeletal: normal muscle bulk, no effusion Microbiology Date/Time Source Procedure Growth Status 03/28/19 10:15 Urine,Suprapubic Urine Culture - Preliminary NO GROWTH Resulted Laboratory Tests Test 03/29/19 05:30 White Blood Count 5.4 K/UL (4.8-10.8) Red Blood Count 3.93 M/UL (4.70-6.10) L Hemoglobin 9.1 G/DL (14.2-18.0) L Hematocrit 28.7 % (42.0-52.0) L Mean Corpuscular Volume 73 FL (80-99) L Mean Corpuscular Hemoglobin 23.1 PG (27.0-31.0) L Mean Corpuscular Hemoglobin Concent 31.6 G/DL (32.0-36.0) L Red Cell Distribution Width 12.5 % (11.6-14.8) Platelet Count 171 K/UL (150-450) Mean Platelet Volume 5.6 FL (6.5-10.1) L Neutrophils (%) (Auto) 68.5 % (45.0-75.0) Lymphocytes (%) (Auto) 16.2 % (20.0-45.0) L Monocytes (%) (Auto) 8.4 % (1.0-10.0) Eosinophils (%) (Auto) 5.6 % (0.0-3.0) H Basophils (%) (Auto) 1.3 % (0.0-2.0) Sodium Level 143 MMOL/L (136-145) Potassium Level 4.2 MMOL/L (3.5-5.1) Chloride Level 108 MMOL/L (98-107) H Carbon Dioxide Level 27 MMOL/L (21-32) Anion Gap 8 mmol/L (5-15) Blood Urea Nitrogen 25 mg/dL (7-18) H Creatinine 1.3 MG/DL (0.55-1.30) Estimat Glomerular Filtration Rate mL/min (>60) Glucose Level 96 MG/DL (74-106) Calcium Level 8.0 MG/DL (8.5-10.1) L Current Medications Medications (Trade) Dose Ordered Sig/Charlene Route PRN Reason Start Time Stop Time Status Last Admin Dose Admin Acetaminophen (Tylenol) 650 mg Q6H PRN ORAL Mild Pain/Temp > 100.5 03/28/19 15:45 04/27/19 15:44 03/28/19 23:43 Amlodipine Besylate (Norvasc) 5 mg DAILY ORAL 03/29/19 09:00 04/28/19 08:59 03/29/19 08:36 Aspirin (Ecotrin) 81 mg DAILY ORAL 03/29/19 09:00 04/28/19 08:59 03/29/19 08:34 Bisacodyl (Dulcolax) 10 mg DAILYPRN PRN RECTAL Constipation 03/28/19 16:00 04/27/19 15:44 Citalopram Hydrobromide (celeXA) 40 mg DAILY ORAL 03/29/19 09:00 04/28/19 08:59 03/29/19 08:47 Doxycycline Hyclate 100 mg/ Dextrose 110 ml @ 110 mls/hr Q12HR@1000,2200 IV 03/28/19 22:00 04/04/19 21:59 03/29/19 12:22 Enalapril Maleate (Vasotec) 20 mg DAILY ORAL 03/29/19 09:00 04/28/19 08:59 03/29/19 08:36 Ertapenem 0.5 gm/ Sodium Chloride 55 ml @ 110 mls/hr Q24H IVPB 03/28/19 20:00 04/02/19 19:59 03/28/19 20:54 Magnesium Hydroxide (Mom) 30 ml DAILYPRN PRN ORAL Constipation 03/28/19 15:45 04/27/19 15:44 Multivitamins (Multivitamins) 1 tab DAILY ORAL 03/29/19 09:00 04/28/19 08:59 03/29/19 08:34 Oxybutynin Chloride (Ditropan) 2.5 mg BID ORAL 03/28/19 18:00 04/27/19 17:59 03/29/19 08:35 Sodium Chloride 1,000 ml @ 50 mls/hr Q20H IV 03/28/19 15:45 04/27/19 15:44 03/28/19 17:37 Sodium Phosphate (Fleet's Sodium Phosl Enema) 133 ml DAILYPRN PRN RECTAL Constipation 03/28/19 15:45 04/27/19 15:44 Frida Billings M.D. Mar 29, 2019 12:59
--- NOTE | 2019-03-29 14:21 | Urology Progress Note ---
Assessment/Plan Status: stable Assessment/Plan: BPH hx urinary retention with chronic SPT urethral stx hx probable neurogenic bladder hematuria pyuria/UTI hx/colonized balanitis renal cyst monitor clinically maintain SPT, last exchanged 03/28 draining well hand irrigate PRN abx as ordered oxybutynin, can increase dose if needed local care for penile glans cysto as outpt f/u on urine cx Subjective Allergies: Coded Allergies: No Known Allergies (Unverified , 11/26/14) Subjective all noted, looks comfortable Objective Last 24 Hour Vital Signs Date Time Temp Pulse Resp B/P (MAP) Pulse Ox O2 Delivery O2 Flow Rate FiO2 03/29/19 09:36 97.3 61 18 123/69 (87) 95 03/29/19 09:00 Room Air 03/29/19 08:36 123/69 03/29/19 08:36 61 123/69 03/29/19 08:00 97.3 61 18 123/69 (87) 95 03/29/19 04:00 97.0 61 17 106/47 (66) 95 03/29/19 00:13 99.7 03/29/19 00:00 100.5 62 17 116/48 (70) 95 03/28/19 21:00 Room Air 03/28/19 20:00 99.3 69 17 137/69 (91) 92 03/28/19 19:22 96.8 66 20 132/86 98 Room Air 03/28/19 16:00 97.5 61 18 104/65 (78) 97 03/28/19 15:18 Room Air Intake and Output 03/28/19 03/29/19 19:00 07:00 Intake Total 450 ml 1770 ml Output Total 200 ml 600 ml Balance 250 ml 1170 ml Intake IV Total 450 ml 1770 ml Output Urine Total 200 ml 600 ml Microbiology Date/Time Source Procedure Growth Status 03/28/19 10:15 Urine,Suprapubic Urine Culture - Preliminary NO GROWTH Resulted Current Medications Medications (Trade) Dose Ordered Sig/Charlene Route PRN Reason Start Time Stop Time Status Last Admin Dose Admin Acetaminophen (Tylenol) 650 mg Q6H PRN ORAL Mild Pain/Temp > 100.5 03/28/19 15:45 04/27/19 15:44 03/28/19 23:43 Amlodipine Besylate (Norvasc) 5 mg DAILY ORAL 03/29/19 09:00 04/28/19 08:59 03/29/19 08:36 Aspirin (Ecotrin) 81 mg DAILY ORAL 03/29/19 09:00 04/28/19 08:59 03/29/19 08:34 Bisacodyl (Dulcolax) 10 mg DAILYPRN PRN RECTAL Constipation 03/28/19 16:00 04/27/19 15:44 Citalopram Hydrobromide (celeXA) 40 mg DAILY ORAL 03/29/19 09:00 04/28/19 08:59 03/29/19 08:47 Doxycycline Hyclate 100 mg/ Dextrose 110 ml @ 110 mls/hr Q12HR@1000,2200 IV 03/28/19 22:00 04/04/19 21:59 03/29/19 12:22 Enalapril Maleate (Vasotec) 20 mg DAILY ORAL 03/29/19 09:00 04/28/19 08:59 03/29/19 08:36 Ertapenem 1 gm/ Sodium Chloride 55 ml @ 110 mls/hr Q24H IVPB 03/29/19 20:00 04/03/19 19:59 Magnesium Hydroxide (Mom) 30 ml DAILYPRN PRN ORAL Constipation 03/28/19 15:45 04/27/19 15:44 Multivitamins (Multivitamins) 1 tab DAILY ORAL 03/29/19 09:00 04/28/19 08:59 03/29/19 08:34 Oxybutynin Chloride (Ditropan) 2.5 mg BID ORAL 03/28/19 18:00 04/27/19 17:59 03/29/19 08:35 Sodium Chloride 1,000 ml @ 50 mls/hr Q20H IV 03/28/19 15:45 04/27/19 15:44 03/28/19 17:37 Sodium Phosphate (Fleet's Sodium Phosl Enema) 133 ml DAILYPRN PRN RECTAL Constipation 03/28/19 15:45 04/27/19 15:44 Laboratory Tests 03/29/19 05:30: White Blood Count 5.4, Red Blood Count 3.93L, Hemoglobin 9.1L, Hematocrit 28.7L , Mean Corpuscular Volume 73L, Mean Corpuscular Hemoglobin 23.1L, Mean Corpuscular Hemoglobin Concent 31.6L, Red Cell Distribution Width 12.5, Platelet Count 171, Mean Platelet Volume 5.6L, Neutrophils (%) (Auto) 68.5, Lymphocytes (%) (Auto) 16.2L, Monocytes (%) (Auto) 8.4, Eosinophils (%) (Auto) 5.6H, Basophils (%) (Auto) 1.3, Sodium Level 143, Potassium Level 4.2, Chloride Level 108H, Carbon Dioxide Level 27, Anion Gap 8, Blood Urea Nitrogen 25H, Creatinine 1.3, Estimat Glomerular Filtration Rate , Glucose Level 96, Calcium Level 8.0L Height (Feet): 5 Height (Inches): 4.00 Weight (Pounds): 130 Objective exam shows 24f SPT urine is grossly yellow there is some erythema of glaCamilo Dye MD Mar 29, 2019 14:21
[2019-03-29] MEDS ORDERED: D5NS 1000ml IV ONE (16:13)
[2019-03-29] MEDS ORDERED: Tubing IV Secondary IV ONE (16:13)
--- NOTE | 2019-03-29 19:14 | Consultation ---
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 On admission identified to have multiple wounds requiring care. Surgery called to evaluate. Patient seen, patient evaluated, chart reviewed. Patient with superficial catheter that is leaking. Otherwise as below. Labs noted. Allergies: Coded Allergies: No Known Allergies (Unverified , 11/26/14) Medication History Scheduled Amlodipine Besylate (Norvasc), 5 MG ORAL DAILY, (Reported) Aspirin Ec* (Aspirin Ec*), 81 MG ORAL DAILY, (Reported) Bisacodyl (Dulcolax), 10 MG RC PRN, (Reported) Citalopram Hydrobromide* (Citalopram Hbr*), 40 MG ORAL DAILY, (Reported) Enalapril Maleate* (Enalapril Maleate*), 20 MG ORAL DAILY, (Reported) Linagliptin (Tradjenta), 2.5 MG PO DAILY, (Reported) Multivitamin With Minerals (Multivitamins With Minerals*), 1 TAB ORAL DAILY, ( Reported) Na Phos,M-B/Na Phos,Di-Ba (Enema), 133 ML RC PRN, (Reported) Nitrofurantoin Monohyd/M-Cryst* (Macrobid 100 Mg*), 100 MG ORAL EVERY 12 HOURS Oxybutynin Chloride (Oxybutynin Chloride), 2.5 MG ORAL BID, (Reported) Scheduled PRN Acetaminophen* (Acetaminophen 325MG Tablet*), 650 MG ORAL Q6H PRN for Moderate Breakthru Pain (5-7), (Reported) Acetaminophen* (Tylenol Extra Strength*), 1,000 MG ORAL Q6H PRN for Severe Pain (Pain Scale 7-10), (Reported) Acetaminophen* (Tylenol Extra Strength*), 500 MG ORAL Q6H PRN for Mild Pain/ Temp > 100.5, (Reported) Magnesium Hydroxide* (Milk Of Magnesia*), 30 ML ORAL DAILY PRN for Constipation, (Reported) Miscellaneous Medications Linagliptin (Tradjenta), 5 MG PO, (Reported) Loperamide Hcl (Imodium A-D), 1 MG PO, (Reported) Discontinued Medications Ertapenem (Invanz), 1 GM IVPB DAILY Discontinued Reason: Pt stopped taking med Patient History Limited by: medical condition History Provided By: Medical Record Healthcare decision maker Nida Arnold Resuscitation status Full Code Advanced Directive on File At home Past Medical/Surgical History Past Medical/Surgical History: (1) Confusional state (2) Sepsis (3) Urinary tract infection (4) UTI (urinary tract infection) (5) Encephalopathy acute (6) Bacteremia (7) Diarrhea (8) Altered mental status (9) UTI (urinary tract infection) (10) Dehydration (11) Suprapubic catheter dysfunction (12) Penis, cellulitis (13) UTI (urinary tract infection) (14) Abdominal pain (15) Ventral hernia (16) E. coli urinary tract infection (17) Catheter-associated urinary tract infection (18) Altered level of consciousness (19) ARF (acute renal failure) Review of Systems Review of Symptoms General ROS: no weight loss or fever Psychological ROS: no depression or mood changes, no memory loss Ophthalmic ROS: no visual changes or eye irritation ENT ROS: no nasal congestion, hearing loss, dizziness Allergy and Immunology ROS: no allergic symptoms or urticaria Hematological and Lymphatic ROS: no swollen glands, unusual bleeding or bruising Endocrine ROS: no polyuria, polydipsia, weight changes, temperature intolerance Respiratory ROS: no cough, shortness of breath, or wheezing Cardiovascular ROS: no chest pain or dyspnea on exertion Gastrointestinal ROS: denies abdominal pain, bright red blood in stool. Musculoskeletal ROS: no myalgias or arthralgias Neurological ROS: no TIA or stroke symptoms Dermatological ROS: no new or changing skin lesions, rashes or pruritis Physical Exam Physical Exam General appearance: alert, no distress, appears stated age Head: Normocephalic, without obvious abnormality, atraumatic Eyes: conjunctivae/corneas clear. PERRL, EOM's intact. Fundi benign Throat: Lips, mucosa, and tongue normal. Teeth and gums normal Neck: supple, symmetrical, trachea midline, no adenopathy, thyroid: not enlarged, symmetric, no tenderness/mass/nodules, no carotid bruit and no JVD Lungs: clear to auscultation bilaterally Heart: regular rate and rhythm, S1, S2 normal, no murmur, click, rub or gallop Abdomen: soft, non-tender. Bowel sounds normal. No masses, no organomegaly Extremities: extremities normal, atraumatic, no cyanosis or edema Pulses: symmetric Skin: as below Neurologic: Grossly normal Last 24 Hour Vital Signs Date Time Temp Pulse Resp B/P (MAP) Pulse Ox O2 Delivery O2 Flow Rate FiO2 03/29/19 16:00 98.0 60 19 122/54 (76) 95 03/29/19 12:00 97.7 60 22 138/65 (89) 90 03/29/19 09:36 97.3 61 18 123/69 (87) 95 03/29/19 09:00 Room Air 03/29/19 08:36 123/69 03/29/19 08:36 61 123/69 03/29/19 08:00 97.3 61 18 123/69 (87) 95 03/29/19 04:00 97.0 61 17 106/47 (66) 95 03/29/19 00:13 99.7 03/29/19 00:00 100.5 62 17 116/48 (70) 95 03/28/19 21:00 Room Air 03/28/19 20:00 99.3 69 17 137/69 (91) 92 03/28/19 19:22 96.8 66 20 132/86 98 Room Air Intake and Output 03/28/19 03/29/19 18:59 06:59 Intake Total 450 ml 1770 ml Output Total 200 ml 600 ml Balance 250 ml 1170 ml Intake IV Total 450 ml 1770 ml Output Urine Total 200 ml 600 ml Laboratory Tests Test 03/29/19 05:30 White Blood Count 5.4 K/UL (4.8-10.8) Red Blood Count 3.93 M/UL (4.70-6.10) L Hemoglobin 9.1 G/DL (14.2-18.0) L Hematocrit 28.7 % (42.0-52.0) L Mean Corpuscular Volume 73 FL (80-99) L Mean Corpuscular Hemoglobin 23.1 PG (27.0-31.0) L Mean Corpuscular Hemoglobin Concent 31.6 G/DL (32.0-36.0) L Red Cell Distribution Width 12.5 % (11.6-14.8) Platelet Count 171 K/UL (150-450) Mean Platelet Volume 5.6 FL (6.5-10.1) L Neutrophils (%) (Auto) 68.5 % (45.0-75.0) Lymphocytes (%) (Auto) 16.2 % (20.0-45.0) L Monocytes (%) (Auto) 8.4 % (1.0-10.0) Eosinophils (%) (Auto) 5.6 % (0.0-3.0) H Basophils (%) (Auto) 1.3 % (0.0-2.0) Sodium Level 143 MMOL/L (136-145) Potassium Level 4.2 MMOL/L (3.5-5.1) Chloride Level 108 MMOL/L (98-107) H Carbon Dioxide Level 27 MMOL/L (21-32) Anion Gap 8 mmol/L (5-15) Blood Urea Nitrogen 25 mg/dL (7-18) H Creatinine 1.3 MG/DL (0.55-1.30) Estimat Glomerular Filtration Rate mL/min (>60) Glucose Level 96 MG/DL (74-106) Calcium Level 8.0 MG/DL (8.5-10.1) L Height (Feet): 5 Height (Inches): 4.00 Weight (Pounds): 130 Medications Current Medications Medications (Trade) Dose Ordered Sig/Charlene Route PRN Reason Start Time Stop Time Status Last Admin Dose Admin Acetaminophen (Tylenol) 650 mg Q6H PRN ORAL Mild Pain/Temp > 100.5 03/28/19 15:45 04/27/19 15:44 03/28/19 23:43 Amlodipine Besylate (Norvasc) 5 mg DAILY ORAL 03/29/19 09:00 04/28/19 08:59 03/29/19 08:36 Aspirin (Ecotrin) 81 mg DAILY ORAL 03/29/19 09:00 04/28/19 08:59 03/29/19 08:34 Bisacodyl (Dulcolax) 10 mg DAILYPRN PRN RECTAL Constipation 03/28/19 16:00 04/27/19 15:44 Citalopram Hydrobromide (celeXA) 40 mg DAILY ORAL 03/29/19 09:00 04/28/19 08:59 03/29/19 08:47 Doxycycline Hyclate 100 mg/ Dextrose 110 ml @ 110 mls/hr Q12HR@1000,2200 IV 03/28/19 22:00 12/3/19 21:59 03/29/19 12:22 Enalapril Maleate (Vasotec) 20 mg DAILY ORAL 03/29/19 09:00 04/28/19 08:59 03/29/19 08:36 Ertapenem 1 gm/ Sodium Chloride 55 ml @ 110 mls/hr Q24H IVPB 03/29/19 20:00 04/03/19 19:59 Magnesium Hydroxide (Mom) 30 ml DAILYPRN PRN ORAL Constipation 03/28/19 15:45 04/27/19 15:44 Multivitamins (Multivitamins) 1 tab DAILY ORAL 03/29/19 09:00 04/28/19 08:59 03/29/19 08:34 Oxybutynin Chloride (Ditropan) 2.5 mg BID ORAL 03/28/19 18:00 04/27/19 17:59 03/29/19 18:17 Sodium Chloride 1,000 ml @ 50 mls/hr Q20H IV 03/28/19 15:45 04/27/19 15:44 03/29/19 14:37 Sodium Phosphate (Fleet's Sodium Phosl Enema) 133 ml DAILYPRN PRN RECTAL Constipation 03/28/19 15:45 04/27/19 15:44 Assessment/Plan Problem List: (1) Decubitus skin ulcer Assessment & Plan: Pt presented on admission with grossly erythematous and excoriated shaft, and including glans penis. Perineal Hygiene also noted to be grossly neglected and good cleansing provided. Dark skin pigmentation without erythema or induration noted to sacrum and cleft of buttocks. Non-tender when palpated. Both heels are Boggy with non-blanchable erythema. Tx.Plan: Gently cleanse with soap and water.Pat dry. Apply Neosporin Twice Daily. Apply Cavilon Skin Barrier to R and L heels. Cover each Heel with Optifoam drsg. Change every 7 days and prn. Apply Moisture Barrier Paste to Buttocks. Cover Sacrum with Optifoam drsg. Change every 3 days and prn. Reposition at least every 2hours or as tolerated. Off-load heels with pillow. ICD Codes: L89.90 - Pressure ulcer of unspecified site, unspecified stage SNOMED: 164759811 (2) Penis, cellulitis Assessment & Plan: as per urology ICD Codes: N48.22 - Cellulitis of corpus cavernosum and penis SNOMED: 57518101 (3) Ventral hernia Assessment & Plan: Herniation of the anterior aspect of the bladder into a lower pelvic central ventral hernia seen prior on CT stable does not seem strangulated or compromised will monitor ICD Codes: K43.9 - Ventral hernia without obstruction or gangrene SNOMED: 699601918 Sunday Lopez Mar 29, 2019 19:14
--- NOTE | 2019-03-29 19:45 | Consultation ---
DATE OF CONSULTATION: 03/28/2019 INFECTIOUS DISEASE CONSULTATION CONSULTING PHYSICIAN: Frida Billings M.D. REQUESTING PHYSICIAN: Suad Loving M.D. REASON FOR CONSULTATION: Catheter-associated urinary tract infection with infected venous, recommendation for antibiotics treatment in the patient with history of ESBL-producing organism related infection. HISTORY OF PRESENT ILLNESS: The patient is an 88-year-old Malay male with past medical history significant for dementia, hypertension, overactive bladder, status post suprapubic catheter placement, diabetes type 2, osteoarthritis who has been bedridden in the assisted living facility and had multiple urinary tract infections in the past due to urine leakage around his suprapubic catheter. Somewhere ESBL-producing organism was sent to the emergency room for dysuria and pain with inflammation in his penis tip. The patient visited the emergency room on 03/23/2019 and had urinalysis and culture, which grew more than 100,000 colony of ESBL-producing Proteus mirabilis, so he was started on ertapenem by the admitting primary care physician and Infectious Disease consultation was requested for antibiotics treatment and further management. As of note, the patient had his suprapubic catheter change in the emergency room when he was admitted at this time. He is a poor historian, could not provide any history. History was mainly obtained from the medical record and nursing staff. REVIEW OF SYSTEMS: Unable to obtain. The patient is a poor historian, cannot provide any history. PAST MEDICAL HISTORY: Significant for dementia, hypertension, overactive bladder, status post suprapubic catheter placement, diabetes type 2, osteoarthritis, gait instability, and recurrent UTI due to his catheter. PAST SURGICAL HISTORY: He had suprapubic catheter placement and pacemaker placement. SOCIAL HISTORY: The patient lives in the assisted living. No recent drugs, tobacco, or alcohol. He is unemployed. FAMILY HISTORY: Not contributory. ALLERGIES: He has no known drug allergies. MEDICATIONS: He is on ertapenem 1 g IV q.24 h. For the rest of his medications, please refer to MARs. PHYSICAL EXAMINATION: VITAL SIGNS: Temperature 97.5, pulse 61, respiration 18, blood pressure 104/65, saturation 97% on room air. GENERAL: An elderly male cachectic, altered, confused, lying in bed, unresponsive, not in acute distress. HEENT: Normocephalic, atraumatic. Pupils are reactive to light. Dry oral mucosa. NECK: Supple. No lymphadenopathy. CARDIOVASCULAR: Regular rate and rhythm. Paced. S1, S2 normal. No murmur. No gallop. LUNGS: Clear bilaterally. Diminished breathing sounds at the bases. ABDOMEN: Soft, nontender, and nondistended. Normal bowel sounds. Suprapubic catheter in place with clean dressing, no draining or discharge around it. GENITOURINARY: He had inflammation and cellulitis in the tip of his penis with exudate. EXTREMITIES: Lower extremity, no edema or cyanosis. No clubbing. SKIN: He has deep tissue injury on his heels. LABORATORY AND DIAGNOSTIC DATA: Labs showed white count of 6.4, hemoglobin of 9.5, platelet count of 196, BUN of 31, creatinine of 1.5, AST of 17, ALT of 18. Urinalysis showed +1 leukocyte esterase, 10 to 15 red blood cells, 5 to 10 wbc's, and few mucus in the urine. 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 IMAGING: None done so far. ASSESSMENT AND RECOMMENDATION: 1. Catheter-associated urinary tract infection due to ESBL-producing Proteus mirabilis. I agree with suprapubic Patricio catheter change since it is colonized by now and dysfunctional. Continue ertapenem for now. Pending repeated blood culture on this admission. Continue local suprapubic catheter care as needed. Follow up with Urology. 2. Cellulitis of the penis. We will add doxycycline to ertapenem to cover for possible Staph aureus, mainly MRSA. Keep dry and clean the tip of the penis. Avoid trauma and moisture. Continue local care as per hospital protocol. 3. Dehydration, suspect due to poor oral intake and alteration in his mental status. Continue IV fluid for hydration. Monitor electrolytes. 4. Suprapubic catheter dysfunction with leakage, status post change in the emergency room. Continue local care. Follow up with Urology. 5. Acute renal failure, suspect due to the above. Continue hydration. Renally dosed medicine. Avoid nephrotoxic. Monitor function of the kidney on a daily basis. Thank you for the consult. ID will continue to follow. Please feel free to call with any question. Frida Billings M.D. DR: KALEN JOB#: [id number] CC:
[2019-03-29] MEDS ORDERED: MONUROL3 GM ORAL (20:02)
[2019-03-29] MEDS ORDERED: MILK OF MA400 MG/51 ORAL (20:02)
[2019-03-29] MEDS: Ertapenem 1gm in NS 55ml IVPB SCH (20:33)
[2019-03-30] VITALS: BP 145/75
[2019-03-30 04:00] VITALS: BP 142/72
[2019-03-30 06:54] LABS: BASOPHILS % (AUTO) 1.4 % (0.0-2.0); EOSINOPHILS % (AUTO) 8.8 % (0.0-3.0); HEMATOCRIT 30.5 % (42.0-52.0); HEMOGLOBIN 9.6 G/DL (14.2-18.0); LYMPHOCYTES % (AUTO) 36.7 % (20.0-45.0); MEAN CORPUSCULAR VOLUME 73 FL (80-99); MONOCYTES % (AUTO) 8.7 % (1.0-10.0); NEUTROPHILS % (AUTO) 44.4 % (45.0-75.0); PLATELET COUNT 179 K/UL (150-450); RED CELL DISTRIBUTION WIDTH 12.5 % (11.6-14.8); WHITE BLOOD COUNT 4.6 K/UL (4.8-10.8)
[2019-03-30 07:00] LABS: ANION GAP 8 mmol/L (5-15); BLOOD UREA NITROGEN 21 mg/dL (7-18); CALCIUM 8.1 MG/DL (8.5-10.1); CARBON DIOXIDE 26 MMOL/L (21-32); CHLORIDE 109 MMOL/L (98-107); CREATININE 1.2 MG/DL (0.55-1.30); POTASSIUM 4.3 MMOL/L (3.5-5.1); SODIUM 143 MMOL/L (136-145)
[2019-03-30 08:00] VITALS: BP 140/89
--- NOTE | 2019-03-30 08:51 | Urology Progress Note ---
Assessment/Plan Status: stable Assessment/Plan: BPH hx urinary retention with chronic SPT urethral stx hx probable neurogenic bladder hematuria pyuria/UTI hx/colonized balanitis renal cyst monitor clinically maintain SPT, last exchanged 03/28 draining well hand irrigate PRN abx as ordered oxybutynin, can increase dose if needed local care for penile glans cysto as outpt f/u on urine and blood cx's Subjective Allergies: Coded Allergies: No Known Allergies (Unverified , 11/26/14) Subjective all noted, looks comfortable Objective Last 24 Hour Vital Signs Date Time Temp Pulse Resp B/P (MAP) Pulse Ox O2 Delivery O2 Flow Rate FiO2 03/30/19 08:00 98.0 64 16 140/89 (106) 97 03/30/19 04:00 97.7 60 19 142/72 (95) 96 03/30/19 00:00 97.7 67 18 145/75 (98) 93 03/29/19 21:00 Room Air 03/29/19 20:00 98.2 60 18 135/66 (89) 94 03/29/19 16:00 98.0 60 19 122/54 (76) 95 03/29/19 12:00 97.7 60 22 138/65 (89) 90 03/29/19 09:36 97.3 61 18 123/69 (87) 95 03/29/19 09:00 Room Air Intake and Output 03/29/19 03/30/19 19:00 07:00 Intake Total 610 ml 720 ml Output Total 1200 ml 550 ml Balance -590 ml 170 ml Intake IV Total 610 ml 720 ml Output Urine Total 1200 ml 550 ml # Bowel Movements 1 1 Microbiology Date/Time Source Procedure Growth Status 03/28/19 10:15 Blood Blood Culture - Preliminary NO GROWTH AFTER 24 HOURS Resulted 03/28/19 10:15 Urine,Suprapubic Urine Culture - Preliminary NO GROWTH AFTER 24 HOURS Resulted Current Medications Medications (Trade) Dose Ordered Sig/Charlene Route PRN Reason Start Time Stop Time Status Last Admin Dose Admin Acetaminophen (Tylenol) 650 mg Q6H PRN ORAL Mild Pain/Temp > 100.5 03/28/19 15:45 04/27/19 15:44 03/28/19 23:43 Amlodipine Besylate (Norvasc) 5 mg DAILY ORAL 03/29/19 09:00 04/28/19 08:59 03/29/19 08:36 Aspirin (Ecotrin) 81 mg DAILY ORAL 03/29/19 09:00 04/28/19 08:59 03/29/19 08:34 Bisacodyl (Dulcolax) 10 mg DAILYPRN PRN RECTAL Constipation 03/28/19 16:00 04/27/19 15:44 Citalopram Hydrobromide (celeXA) 40 mg DAILY ORAL 03/29/19 09:00 04/28/19 08:59 03/29/19 08:47 Doxycycline Hyclate 100 mg/ Dextrose 110 ml @ 110 mls/hr Q12HR@1000,2200 IV 03/28/19 22:00 04/04/19 21:59 03/29/19 22:08 Enalapril Maleate (Vasotec) 20 mg DAILY ORAL 03/29/19 09:00 04/28/19 08:59 03/29/19 08:36 Ertapenem 1 gm/ Sodium Chloride 55 ml @ 110 mls/hr Q24H IVPB 03/29/19 20:00 04/03/19 19:59 03/29/19 20:33 Magnesium Hydroxide (Mom) 30 ml DAILYPRN PRN ORAL Constipation 03/28/19 15:45 04/27/19 15:44 Multivitamins (Multivitamins) 1 tab DAILY ORAL 03/29/19 09:00 04/28/19 08:59 03/29/19 08:34 Oxybutynin Chloride (Ditropan) 2.5 mg BID ORAL 03/28/19 18:00 04/27/19 17:59 03/29/19 18:17 Sodium Chloride 1,000 ml @ 50 mls/hr Q20H IV 03/28/19 15:45 04/27/19 15:44 03/29/19 14:37 Sodium Phosphate (Fleet's Sodium Phosl Enema) 133 ml DAILYPRN PRN RECTAL Constipation 03/28/19 15:45 04/27/19 15:44 Laboratory Tests 03/30/19 05:50: White Blood Count 4.6L, Red Blood Count 4.20L, Hemoglobin 9.6L, Hematocrit 30.5L , Mean Corpuscular Volume 73L, Mean Corpuscular Hemoglobin 22.8L, Mean Corpuscular Hemoglobin Concent 31.3L, Red Cell Distribution Width 12.5, Platelet Count 179, Mean Platelet Volume 5.2L, Neutrophils (%) (Auto) 44.4L, Lymphocytes (%) (Auto) 36.7, Monocytes (%) (Auto) 8.7, Eosinophils (%) (Auto) 8.8H, Basophils (%) (Auto) 1.4, Sodium Level 143, Potassium Level 4.3, Chloride Level 109H, Carbon Dioxide Level 26, Anion Gap 8, Blood Urea Nitrogen 21H, Creatinine 1.2, Estimat Glomerular Filtration Rate , Glucose Level 92, Calcium Level 8.1L Height (Feet): 5 Height (Inches): 4.00 Weight (Pounds): 130 Objective exam shows 24f SPT urine is grossly yellow there is some erythema of glans BradyshCamilo tanner MD Mar 30, 2019 08:51
[2019-03-30] MEDS: Oxybutynin 5mg tab ORAL SCH ×2 (08:54→17:40)
[2019-03-30] MEDS: Aspirin EC 81mg tab ORAL SCH (08:54)
[2019-03-30] MEDS: Citalopram Hydrobromide 10mg Tab ORAL SCH (08:55)
[2019-03-30] MEDS: Doxycycline Hyclate 100 MG in D5W 110 ML IV SCH (09:06)
--- NOTE | 2019-03-30 11:14 | General Progress Note ---
Assessment/Plan Status: stable Assessment/Plan: 1. ESBL proteus UTI - cont Ertapenam 1 gm IV daily. advertising campaign manager consult for D/ C planning tomorrow for [facility] or Briseida Garcia. 2. Balanitis - cont Doxycycline 100 mg IV BID. 3. Dehydration - improved. cont IVF. 4. Advanced Dementia - off meds per family request. 5. HTN - cont Enalopril 20 mg one po daily and norvasc 5 mg daily 6. SSS with history of Pacemaker Placement 7. neurogenic bladder - on oxybutynin. 8. DM II - well controlled. off tradenta as inpatient. 9. Depression - cont celexa 40 mg one po qhs Subjective Date patient seen: Mar 30, 2019 Time patient seen: 11:10 Constitutional: Reports: weakness HEENT: Reports: no symptoms Cardiovascular: Reports: no symptoms Respiratory: Reports: no symptoms Gastrointestinal/Abdominal: Reports: no symptoms Genitourinary: Reports: no symptoms Neurologic/Psychiatric: Reports: no symptoms Endocrine: Reports: no symptoms Hematologic/Lymphatic: Reports: no symptoms Allergies: Coded Allergies: No Known Allergies (Unverified , 11/26/14) Subjective This morning he is doing better. afebrile. no nausea or vomiting. no sob or chest pain. Objective Last 24 Hour Vital Signs Date Time Temp Pulse Resp B/P (MAP) Pulse Ox O2 Delivery O2 Flow Rate FiO2 03/30/19 09:00 Room Air 03/30/19 08:55 140/89 03/30/19 08:54 64 140/89 03/30/19 08:00 98.0 64 16 140/89 (106) 97 03/30/19 04:00 97.7 60 19 142/72 (95) 96 03/30/19 00:00 97.7 67 18 145/75 (98) 93 03/29/19 21:00 Room Air 03/29/19 20:00 98.2 60 18 135/66 (89) 94 03/29/19 16:00 98.0 60 19 122/54 (76) 95 03/29/19 12:00 97.7 60 22 138/65 (89) 90 Intake and Output 03/29/19 03/30/19 19:00 07:00 Intake Total 610 ml 720 ml Output Total 1200 ml 550 ml Balance -590 ml 170 ml Intake IV Total 610 ml 720 ml Output Urine Total 1200 ml 550 ml # Bowel Movements 1 1 Laboratory Tests 03/30/19 05:50: White Blood Count 4.6L, Red Blood Count 4.20L, Hemoglobin 9.6L, Hematocrit 30.5L , Mean Corpuscular Volume 73L, Mean Corpuscular Hemoglobin 22.8L, Mean Corpuscular Hemoglobin Concent 31.3L, Red Cell Distribution Width 12.5, Platelet Count 179, Mean Platelet Volume 5.2L, Neutrophils (%) (Auto) 44.4L, Lymphocytes (%) (Auto) 36.7, Monocytes (%) (Auto) 8.7, Eosinophils (%) (Auto) 8.8H, Basophils (%) (Auto) 1.4, Sodium Level 143, Potassium Level 4.3, Chloride Level 109H, Carbon Dioxide Level 26, Anion Gap 8, Blood Urea Nitrogen 21H, Creatinine 1.2, Estimat Glomerular Filtration Rate , Glucose Level 92, Calcium Level 8.1L Height (Feet): 5 Height (Inches): 4.00 Weight (Pounds): 130 General Appearance: no apparent distress, alert EENT: normal ENT inspection Neck: non-tender, normal alignment, supple Cardiovascular: normal rate, regular rhythm Respiratory/Chest: chest wall non-tender, lungs clear, normal breath sounds Abdomen: normal bowel sounds, non tender, soft Extremities: non-tender Edema: no edema noted Arm (L), no edema noted Arm (R), no edema noted Leg (L), no edema noted Leg (R), no edema noted Pedal (L), no edema noted Pedal (R), no edema noted Generalized Neurologic: alert, responsive Skin: warm/dry Suad Loving MD Mar 30, 2019 11:14
[2019-03-30 12:00] VITALS: BP 163/84
[2019-03-30] MEDS: Vancomycin 750mg/NS 275ml IVPB SCH ×2 (12:37)
--- NOTE | 2019-03-30 13:16 | Surgery Progress Note ---
Surgery Progress Note Subjective Symptoms: improved, pain absent, passing flatus Additional Comments labs improving exam stable Objective Last 24 Hour Vital Signs Date Time Temp Pulse Resp B/P (MAP) Pulse Ox O2 Delivery O2 Flow Rate FiO2 03/30/19 09:00 Room Air 03/30/19 08:55 140/89 03/30/19 08:54 64 140/89 03/30/19 08:00 98.0 64 16 140/89 (106) 97 03/30/19 04:00 97.7 60 19 142/72 (95) 96 03/30/19 00:00 97.7 67 18 145/75 (98) 93 03/29/19 21:00 Room Air 03/29/19 20:00 98.2 60 18 135/66 (89) 94 03/29/19 16:00 98.0 60 19 122/54 (76) 95 I&O Intake and Output 03/29/19 03/30/19 19:00 07:00 Intake Total 610 ml 720 ml Output Total 1200 ml 550 ml Balance -590 ml 170 ml Intake IV Total 610 ml 720 ml Output Urine Total 1200 ml 550 ml # Bowel Movements 1 1 Dressing: other Wound: other Drains: other Cardiovascular: RSR Respiratory: clear Abdomen: soft, non-tender, present bowel sounds Extremities: no tenderness, no cyanosis Laboratory Tests Test 03/30/19 05:50 White Blood Count 4.6 K/UL (4.8-10.8) L Red Blood Count 4.20 M/UL (4.70-6.10) L Hemoglobin 9.6 G/DL (14.2-18.0) L Hematocrit 30.5 % (42.0-52.0) L Mean Corpuscular Volume 73 FL (80-99) L Mean Corpuscular Hemoglobin 22.8 PG (27.0-31.0) L Mean Corpuscular Hemoglobin Concent 31.3 G/DL (32.0-36.0) L Red Cell Distribution Width 12.5 % (11.6-14.8) Platelet Count 179 K/UL (150-450) Mean Platelet Volume 5.2 FL (6.5-10.1) L Neutrophils (%) (Auto) 44.4 % (45.0-75.0) L Lymphocytes (%) (Auto) 36.7 % (20.0-45.0) Monocytes (%) (Auto) 8.7 % (1.0-10.0) Eosinophils (%) (Auto) 8.8 % (0.0-3.0) H Basophils (%) (Auto) 1.4 % (0.0-2.0) Sodium Level 143 MMOL/L (136-145) Potassium Level 4.3 MMOL/L (3.5-5.1) Chloride Level 109 MMOL/L (98-107) H Carbon Dioxide Level 26 MMOL/L (21-32) Anion Gap 8 mmol/L (5-15) Blood Urea Nitrogen 21 mg/dL (7-18) H Creatinine 1.2 MG/DL (0.55-1.30) Estimat Glomerular Filtration Rate mL/min (>60) Glucose Level 92 MG/DL (74-106) Calcium Level 8.1 MG/DL (8.5-10.1) L Plan Problems: (1) Decubitus skin ulcer Assessment & Plan: Pt presented on admission with grossly erythematous and excoriated shaft, and including glans penis. Perineal Hygiene also noted to be grossly neglected and good cleansing provided. Dark skin pigmentation without erythema or induration noted to sacrum and cleft of buttocks. Non-tender when palpated. Both heels are Boggy with non-blanchable erythema. Tx.Plan: Gently cleanse with soap and water.Pat dry. Apply Neosporin Twice Daily. Apply Cavilon Skin Barrier to R and L heels. Cover each Heel with Optifoam drsg. Change every 7 days and prn. Apply Moisture Barrier Paste to Buttocks. Cover Sacrum with Optifoam drsg. Change every 3 days and prn. Reposition at least every 2hours or as tolerated. Off-load heels with pillow. (2) Penis, cellulitis Assessment & Plan: as per urology (3) Ventral hernia Assessment & Plan: Herniation of the anterior aspect of the bladder into a lower pelvic central ventral hernia seen prior on CT stable does not seem strangulated or compromised will monitor Sunday Lopez Mar 30, 2019 13:16
[2019-03-30 16:00] VITALS: BP 169/84
--- NOTE | 2019-03-30 19:23 | Infectious Diseases Prog Note ---
Assessment/Plan Problems: (1) Gram-positive cocci bacteremia Assessment & Plan: will switch doxy to vancomycin empirically pending identification and sensitivity (2) Catheter-associated urinary tract infection Assessment & Plan: culture grew ESBL producing Proteus Mirabilis on 03/23 , continue ertapenem for now pending repeated urine culture , had his suprapubic catheter replaced in ED already (3) Penis, cellulitis Assessment & Plan: on ertapenem, and doxycycline empirically , continue local care as per hospital protocol (4) Dehydration Assessment & Plan: due to poor oral intake, continue IVF for hydration , monitor electrolytes (5) Suprapubic catheter dysfunction Assessment & Plan: S/P replacement (6) ARF (acute renal failure) Assessment & Plan: due to dehydration , and suprapubic catheter dysfunction , continue hydration, avoid nephrotoxics , close monitor of renal function Subjective ROS Limited/Unobtainable: Yes Allergies: Coded Allergies: No Known Allergies (Unverified , 11/26/14) Subjective He was resting in bed comfortable, responsive to verbal commands, afebrile, no urine leak around the suprapubic catheter, penis tip looks more dry today with less exudate Objective Vital Signs Last 24 Hour Vital Signs Date Time Temp Pulse Resp B/P (MAP) Pulse Ox O2 Delivery O2 Flow Rate FiO2 03/30/19 17:57 62 169/84 03/30/19 16:00 98.1 62 17 169/84 (112) 99 03/30/19 12:00 98.1 61 17 163/84 (110) 100 03/30/19 09:00 Room Air 03/30/19 08:55 140/89 03/30/19 08:54 64 140/89 03/30/19 08:00 98.0 64 16 140/89 (106) 97 03/30/19 04:00 97.7 60 19 142/72 (95) 96 03/30/19 00:00 97.7 67 18 145/75 (98) 93 03/29/19 21:00 Room Air 03/29/19 20:00 98.2 60 18 135/66 (89) 94 Height (Feet): 5 Height (Inches): 4.00 Weight (Pounds): 130 General Appearance: no acute distress, cachetic HEENT: normocephalic, atraumatic, anicteric, mucous membranes moist, PERRL, EOMI, pharynx normal, supple, no JVD Respiratory/Chest: chest wall non-tender, lungs clear, normal breath sounds, no respiratory distress, no accessory muscle use Cardiovascular: normal peripheral pulses, normal rate, regular rhythm, no gallop/murmur, no JVD Abdomen: normal bowel sounds, soft, non tender, no organomegaly, non distended , no mass, no scars Genitourinary: normal external genitalia Extremities: no cyanosis, no clubbing Skin: no rash, no lesions Neurologic/Psychiatric: alert, unresponsiveness Lymphatic: no neck adenopathy, no groin adenopathy Musculoskeletal: normal muscle bulk, no effusion Microbiology Date/Time Source Procedure Growth Status 03/28/19 10:15 Blood Blood Culture - Preliminary NO GROWTH AFTER 24 HOURS Resulted 03/28/19 09:50 Blood Blood Culture - Preliminary Resulted 03/28/19 10:15 Urine,Suprapubic Urine Culture - Preliminary NO GROWTH AFTER 24 HOURS Resulted 03/28/19 12:30 Rectum - Final NO CARBAPENEM-RESISTANT ENTEROBACTERI... Complete Laboratory Tests Test 03/30/19 05:50 White Blood Count 4.6 K/UL (4.8-10.8) L Red Blood Count 4.20 M/UL (4.70-6.10) L Hemoglobin 9.6 G/DL (14.2-18.0) L Hematocrit 30.5 % (42.0-52.0) L Mean Corpuscular Volume 73 FL (80-99) L Mean Corpuscular Hemoglobin 22.8 PG (27.0-31.0) L Mean Corpuscular Hemoglobin Concent 31.3 G/DL (32.0-36.0) L Red Cell Distribution Width 12.5 % (11.6-14.8) Platelet Count 179 K/UL (150-450) Mean Platelet Volume 5.2 FL (6.5-10.1) L Neutrophils (%) (Auto) 44.4 % (45.0-75.0) L Lymphocytes (%) (Auto) 36.7 % (20.0-45.0) Monocytes (%) (Auto) 8.7 % (1.0-10.0) Eosinophils (%) (Auto) 8.8 % (0.0-3.0) H Basophils (%) (Auto) 1.4 % (0.0-2.0) Sodium Level 143 MMOL/L (136-145) Potassium Level 4.3 MMOL/L (3.5-5.1) Chloride Level 109 MMOL/L (98-107) H Carbon Dioxide Level 26 MMOL/L (21-32) Anion Gap 8 mmol/L (5-15) Blood Urea Nitrogen 21 mg/dL (7-18) H Creatinine 1.2 MG/DL (0.55-1.30) Estimat Glomerular Filtration Rate mL/min (>60) Glucose Level 92 MG/DL (74-106) Calcium Level 8.1 MG/DL (8.5-10.1) L Current Medications Medications (Trade) Dose Ordered Sig/Charlene Route PRN Reason Start Time Stop Time Status Last Admin Dose Admin Acetaminophen (Tylenol) 650 mg Q6H PRN ORAL Mild Pain/Temp > 100.5 03/28/19 15:45 04/27/19 15:44 03/28/19 23:43 Amlodipine Besylate (Norvasc) 5 mg DAILY ORAL 03/29/19 09:00 04/28/19 08:59 03/30/19 08:54 Amlodipine Besylate (Norvasc) 5 mg DAILYPRN PRN ORAL SBP > 160mmHg 03/30/19 17:45 04/29/19 17:44 03/30/19 17:57 Aspirin (Ecotrin) 81 mg DAILY ORAL 03/29/19 09:00 04/28/19 08:59 03/30/19 08:54 Bisacodyl (Dulcolax) 10 mg DAILYPRN PRN RECTAL Constipation 03/28/19 16:00 04/27/19 15:44 Citalopram Hydrobromide (celeXA) 40 mg DAILY ORAL 03/29/19 09:00 04/28/19 08:59 03/30/19 08:55 Enalapril Maleate (Vasotec) 20 mg DAILY ORAL 03/29/19 09:00 04/28/19 08:59 03/30/19 08:55 Ertapenem 1 gm/ Sodium Chloride 55 ml @ 110 mls/hr Q24H IVPB 03/29/19 20:00 04/03/19 19:59 03/29/19 20:33 Magnesium Hydroxide (Mom) 30 ml DAILYPRN PRN ORAL Constipation 03/28/19 15:45 04/27/19 15:44 Multivitamins (Multivitamins) 1 tab DAILY ORAL 03/29/19 09:00 04/28/19 08:59 03/30/19 08:56 Oxybutynin Chloride (Ditropan) 2.5 mg BID ORAL 03/28/19 18:00 04/27/19 17:59 03/30/19 17:40 Sodium Chloride 1,000 ml @ 50 mls/hr Q20H IV 03/28/19 15:45 04/27/19 15:44 03/30/19 09:05 Sodium Phosphate (Fleet's Sodium Phosl Enema) 133 ml DAILYPRN PRN RECTAL Constipation 03/28/19 15:45 04/27/19 15:44 Vancomycin HCl (Vanco rx to dose) 1 ea DAILY PRN MISC Per rx protocol 03/30/19 11:15 04/29/19 11:14 Vancomycin HCl 750 mg/Sodium Chloride 275 ml @ 183.333 mls/hr Q24H IVPB 03/30/19 12:00 04/04/19 11:59 03/30/19 12:37 Frida Billings M.D. Mar 30, 2019 19:23
[2019-03-30 20:00] VITALS: BP 154/67
[2019-03-30] MEDS: Ertapenem 1gm in NS 55ml IVPB SCH (20:29)
[2019-03-31] VITALS: BP 158/70
[2019-03-31 04:00] VITALS: BP 150/74
[2019-03-31 06:27] LABS: BASOPHILS % (AUTO) 1.4 % (0.0-2.0); EOSINOPHILS % (AUTO) 5.3 % (0.0-3.0); HEMATOCRIT 32.7 % (42.0-52.0); HEMOGLOBIN 10.3 G/DL (14.2-18.0); LYMPHOCYTES % (AUTO) 30.8 % (20.0-45.0); MEAN CORPUSCULAR VOLUME 73 FL (80-99); MONOCYTES % (AUTO) 7.9 % (1.0-10.0); NEUTROPHILS % (AUTO) 54.7 % (45.0-75.0); PLATELET COUNT 198 K/UL (150-450); RED BLOOD COUNT 4.49 M/UL (4.70-6.10); RED CELL DISTRIBUTION WIDTH 12.4 % (11.6-14.8); WHITE BLOOD COUNT 6.4 K/UL (4.8-10.8)
[2019-03-31 06:32] LABS: ANION GAP 7 mmol/L (5-15); BLOOD UREA NITROGEN 19 mg/dL (7-18); CALCIUM 8.2 MG/DL (8.5-10.1); CARBON DIOXIDE 27 MMOL/L (21-32); CHLORIDE 109 MMOL/L (98-107); CREATININE 1.1 MG/DL (0.55-1.30); POTASSIUM 4.3 MMOL/L (3.5-5.1); SODIUM 143 MMOL/L (136-145)
[2019-03-31 08:00] VITALS: BP 150/78
[2019-03-31] MEDS: Aspirin EC 81mg tab ORAL SCH (08:55)
[2019-03-31] MEDS: Oxybutynin 5mg tab ORAL SCH ×2 (08:55→17:14)
[2019-03-31] MEDS: Citalopram Hydrobromide 10mg Tab ORAL SCH (09:00)
--- NOTE | 2019-03-31 10:14 | Urology Progress Note ---
Assessment/Plan Status: stable Assessment/Plan: BPH hx urinary retention with chronic SPT urethral stx hx probable neurogenic bladder hematuria pyuria/UTI hx/colonized balanitis renal cyst monitor clinically maintain SPT, last exchanged 03/28 draining well hand irrigate PRN abx as ordered oxybutynin, can increase dose if needed local care for penile glans cysto as outpt f/u on blood cx consider antifungals nystatin powder for penis d/w nursing staff Subjective Allergies: Coded Allergies: No Known Allergies (Unverified , 11/26/14) Subjective all noted, looks comfortable Objective Last 24 Hour Vital Signs Date Time Temp Pulse Resp B/P (MAP) Pulse Ox O2 Delivery O2 Flow Rate FiO2 03/31/19 09:00 Room Air 03/31/19 09:00 150/78 03/31/19 08:55 62 150/78 03/31/19 08:00 97.7 62 18 150/78 (102) 94 03/31/19 04:00 97.8 61 18 150/74 (99) 96 03/31/19 00:00 97.5 61 16 158/70 (99) 96 03/30/19 20:46 Room Air 03/30/19 20:00 97.9 61 18 154/67 (96) 96 03/30/19 17:57 62 169/84 03/30/19 16:00 98.1 62 17 169/84 (112) 99 03/30/19 12:00 98.1 61 17 163/84 (110) 100 Intake and Output 03/30/19 03/31/19 19:00 07:00 Intake Total 1260.000 ml 870 ml Output Total 600 ml 700 ml Balance 660.000 ml 170 ml Intake Oral 500 ml 240 ml IV Total 760.000 ml 630 ml Output Urine Total 600 ml 700 ml # Voids 1 # Bowel Movements 1 1 Microbiology Date/Time Source Procedure Growth Status 03/28/19 10:15 Blood Blood Culture - Preliminary NO GROWTH AFTER 48 HOURS Resulted 03/28/19 10:15 Urine,Suprapubic Urine Culture - Final YEAST Complete 03/28/19 12:30 Rectum - Final NO CARBAPENEM-RESISTANT ENTEROBACTERI... Complete Current Medications Medications (Trade) Dose Ordered Sig/Charlene Route PRN Reason Start Time Stop Time Status Last Admin Dose Admin Acetaminophen (Tylenol) 650 mg Q6H PRN ORAL Mild Pain/Temp > 100.5 03/28/19 15:45 04/27/19 15:44 03/28/19 23:43 Amlodipine Besylate (Norvasc) 5 mg DAILY ORAL 03/29/19 09:00 04/28/19 08:59 03/31/19 08:55 Amlodipine Besylate (Norvasc) 5 mg DAILYPRN PRN ORAL SBP > 160mmHg 03/30/19 17:45 04/29/19 17:44 03/30/19 17:57 Aspirin (Ecotrin) 81 mg DAILY ORAL 03/29/19 09:00 04/28/19 08:59 03/31/19 08:55 Bisacodyl (Dulcolax) 10 mg DAILYPRN PRN RECTAL Constipation 03/28/19 16:00 04/27/19 15:44 Citalopram Hydrobromide (celeXA) 40 mg DAILY ORAL 03/29/19 09:00 04/28/19 08:59 03/31/19 09:00 Enalapril Maleate (Vasotec) 20 mg DAILY ORAL 03/29/19 09:00 04/28/19 08:59 03/31/19 09:00 Ertapenem 1 gm/ Sodium Chloride 55 ml @ 110 mls/hr Q24H IVPB 03/29/19 20:00 04/03/19 19:59 03/30/19 20:29 Magnesium Hydroxide (Mom) 30 ml DAILYPRN PRN ORAL Constipation 03/28/19 15:45 04/27/19 15:44 Multivitamins (Multivitamins) 1 tab DAILY ORAL 03/29/19 09:00 04/28/19 08:59 03/31/19 09:00 Oxybutynin Chloride (Ditropan) 2.5 mg BID ORAL 03/28/19 18:00 04/27/19 17:59 03/31/19 08:55 Sodium Chloride 1,000 ml @ 50 mls/hr Q20H IV 03/28/19 15:45 04/27/19 15:44 03/31/19 04:30 Sodium Phosphate (Fleet's Sodium Phosl Enema) 133 ml DAILYPRN PRN RECTAL Constipation 03/28/19 15:45 04/27/19 15:44 Vancomycin HCl (Vanco rx to dose) 1 ea DAILY PRN MISC Per rx protocol 03/30/19 11:15 04/29/19 11:14 Vancomycin HCl 750 mg/Sodium Chloride 275 ml @ 183.333 mls/hr Q24H IVPB 03/30/19 12:00 04/04/19 11:59 03/30/19 12:37 Laboratory Tests 03/31/19 05:40: White Blood Count 6.4, Red Blood Count 4.49L, Hemoglobin 10.3L, Hematocrit 32.7L , Mean Corpuscular Volume 73L, Mean Corpuscular Hemoglobin 22.9L, Mean Corpuscular Hemoglobin Concent 31.5L, Red Cell Distribution Width 12.4, Platelet Count 198, Mean Platelet Volume 5.0L, Neutrophils (%) (Auto) 54.7, Lymphocytes (%) (Auto) 30.8, Monocytes (%) (Auto) 7.9, Eosinophils (%) (Auto) 5.3H, Basophils (%) (Auto) 1.4, Sodium Level 143, Potassium Level 4.3, Chloride Level 109H, Carbon Dioxide Level 27, Anion Gap 7, Blood Urea Nitrogen 19H, Creatinine 1.1, Estimat Glomerular Filtration Rate , Glucose Level 109H, Calcium Level 8.2L Height (Feet): 5 Height (Inches): 4.00 Weight (Pounds): 130 Objective exam shows 24f SPT urine is grossly yellow there is some erythema of glans Camilo Arevalo MD Mar 31, 2019 10:14
[2019-03-31 12:00] VITALS: BP 148/80
[2019-03-31] MEDS: Vancomycin 750mg/NS 275ml IVPB SCH ×2 (12:28)
--- NOTE | 2019-03-31 13:04 | Infectious Diseases Prog Note ---
Assessment/Plan Problems: (1) Gram-positive cocci bacteremia Assessment & Plan: will continue vancomycin empirically pending identification and sensitivity . will repeat blood culture to confirm clearance (2) Catheter-associated urinary tract infection Assessment & Plan: culture grew ESBL producing Proteus Mirabilis on 03/23 , continue ertapenem for 7 days after his catheter was changed . repeated urine culture now grew small colony of yeast most likely colonization , had his suprapubic catheter replaced in ED already . EOT 04/04/19 (3) Penis, cellulitis Assessment & Plan: on ertapenem, and vancomycin empirically , continue local care as per hospital protocol (4) Dehydration Assessment & Plan: due to poor oral intake, improved with IVF , encourage hydration , monitor electrolytes (5) Suprapubic catheter dysfunction Assessment & Plan: S/P replacement (6) ARF (acute renal failure) Assessment & Plan: due to dehydration , and suprapubic catheter dysfunction , continue hydration, avoid nephrotoxics , close monitor of renal function Subjective ROS Limited/Unobtainable: Yes Allergies: Coded Allergies: No Known Allergies (Unverified , 11/26/14) Subjective He was comfortable resting in bed , responsive to verbal commands, afebrile, no urine leak around the suprapubic catheter, penis tip looks more dry today with less exudate Objective Vital Signs Last 24 Hour Vital Signs Date Time Temp Pulse Resp B/P (MAP) Pulse Ox O2 Delivery O2 Flow Rate FiO2 03/31/19 12:00 97.9 65 18 148/80 (102) 96 03/31/19 10:30 76 166/62 03/31/19 09:00 Room Air 03/31/19 09:00 150/78 03/31/19 08:55 62 150/78 03/31/19 08:00 97.7 62 18 150/78 (102) 94 03/31/19 04:00 97.8 61 18 150/74 (99) 96 03/31/19 00:00 97.5 61 16 158/70 (99) 96 03/30/19 20:46 Room Air 03/30/19 20:00 97.9 61 18 154/67 (96) 96 03/30/19 17:57 62 169/84 03/30/19 16:00 98.1 62 17 169/84 (112) 99 Height (Feet): 5 Height (Inches): 4.00 Weight (Pounds): 130 General Appearance: WD/WN, no acute distress HEENT: normocephalic, atraumatic, anicteric, mucous membranes moist, PERRL Respiratory/Chest: chest wall non-tender, lungs clear, normal breath sounds, no respiratory distress, no accessory muscle use Cardiovascular: normal peripheral pulses, normal rate, regular rhythm, no gallop/murmur, no JVD Abdomen: normal bowel sounds, soft, non tender, no organomegaly, non distended , no mass, no scars, other - suprapubic catheter site looks clean Genitourinary: normal external genitalia Extremities: no cyanosis, no clubbing Skin: no rash, no lesions, ulcers Neurologic/Psychiatric: alert, responsive Lymphatic: no neck adenopathy, no groin adenopathy Musculoskeletal: normal muscle bulk, no effusion Laboratory Tests Test 03/31/19 05:40 White Blood Count 6.4 K/UL (4.8-10.8) Red Blood Count 4.49 M/UL (4.70-6.10) L Hemoglobin 10.3 G/DL (14.2-18.0) L Hematocrit 32.7 % (42.0-52.0) L Mean Corpuscular Volume 73 FL (80-99) L Mean Corpuscular Hemoglobin 22.9 PG (27.0-31.0) L Mean Corpuscular Hemoglobin Concent 31.5 G/DL (32.0-36.0) L Red Cell Distribution Width 12.4 % (11.6-14.8) Platelet Count 198 K/UL (150-450) Mean Platelet Volume 5.0 FL (6.5-10.1) L Neutrophils (%) (Auto) 54.7 % (45.0-75.0) Lymphocytes (%) (Auto) 30.8 % (20.0-45.0) Monocytes (%) (Auto) 7.9 % (1.0-10.0) Eosinophils (%) (Auto) 5.3 % (0.0-3.0) H Basophils (%) (Auto) 1.4 % (0.0-2.0) Sodium Level 143 MMOL/L (136-145) Potassium Level 4.3 MMOL/L (3.5-5.1) Chloride Level 109 MMOL/L (98-107) H Carbon Dioxide Level 27 MMOL/L (21-32) Anion Gap 7 mmol/L (5-15) Blood Urea Nitrogen 19 mg/dL (7-18) H Creatinine 1.1 MG/DL (0.55-1.30) Estimat Glomerular Filtration Rate mL/min (>60) Glucose Level 109 MG/DL (74-106) H Calcium Level 8.2 MG/DL (8.5-10.1) L Current Medications Medications (Trade) Dose Ordered Sig/Charlene Route PRN Reason Start Time Stop Time Status Last Admin Dose Admin Acetaminophen (Tylenol) 650 mg Q6H PRN ORAL Mild Pain/Temp > 100.5 03/28/19 15:45 04/27/19 15:44 03/28/19 23:43 Amlodipine Besylate (Norvasc) 5 mg DAILY ORAL 03/29/19 09:00 04/28/19 08:59 03/31/19 08:55 Amlodipine Besylate (Norvasc) 5 mg DAILYPRN PRN ORAL SBP > 160mmHg 03/30/19 17:45 04/29/19 17:44 03/31/19 10:30 Aspirin (Ecotrin) 81 mg DAILY ORAL 03/29/19 09:00 04/28/19 08:59 03/31/19 08:55 Bisacodyl (Dulcolax) 10 mg DAILYPRN PRN RECTAL Constipation 03/28/19 16:00 04/27/19 15:44 Citalopram Hydrobromide (celeXA) 40 mg DAILY ORAL 03/29/19 09:00 04/28/19 08:59 03/31/19 09:00 Enalapril Maleate (Vasotec) 20 mg DAILY ORAL 03/29/19 09:00 04/28/19 08:59 03/31/19 09:00 Ertapenem 1 gm/ Sodium Chloride 55 ml @ 110 mls/hr Q24H IVPB 03/29/19 20:00 04/03/19 19:59 03/30/19 20:29 Magnesium Hydroxide (Mom) 30 ml DAILYPRN PRN ORAL Constipation 03/28/19 15:45 04/27/19 15:44 Multivitamins (Multivitamins) 1 tab DAILY ORAL 03/29/19 09:00 04/28/19 08:59 03/31/19 09:00 Oxybutynin Chloride (Ditropan) 2.5 mg BID ORAL 03/28/19 18:00 04/27/19 17:59 03/31/19 08:55 Sodium Chloride 1,000 ml @ 50 mls/hr Q20H IV 03/28/19 15:45 04/27/19 15:44 03/31/19 04:30 Sodium Phosphate (Fleet's Sodium Phosl Enema) 133 ml DAILYPRN PRN RECTAL Constipation 03/28/19 15:45 04/27/19 15:44 Vancomycin HCl (Vanco rx to dose) 1 ea DAILY PRN MISC Per rx protocol 03/30/19 11:15 04/29/19 11:14 Vancomycin HCl 750 mg/Sodium Chloride 275 ml @ 183.333 mls/hr Q24H IVPB 03/30/19 12:00 04/04/19 11:59 03/31/19 12:28 Frida Billings M.D. Mar 31, 2019 13:04
[2019-03-31] MEDS ORDERED: NYSTATIN15 G2 TP (14:55)
[2019-03-31] MEDS ORDERED: VANCOMYCIN750 MG/150 IV (14:57)
[2019-03-31] MEDS ORDERED: VANCOMYCIN HCL250 M1 IV (15:02)
[2019-03-31] MEDS ORDERED: Tubing IV Secondary IV ONE (15:24)
[2019-03-31 16:00] VITALS: BP 144/88
--- NOTE | 2019-03-31 17:06 | Surgery Progress Note ---
Surgery Progress Note Subjective Additional Comments Patient seen and examined bedside. No acute events. Feeling better. Family at bedside feeding him. He is tolerating well without any issues. Labs improved. Overall condition slowly improving. Objective Last 24 Hour Vital Signs Date Time Temp Pulse Resp B/P (MAP) Pulse Ox O2 Delivery O2 Flow Rate FiO2 03/31/19 16:00 98.5 70 18 144/88 (106) 97 03/31/19 12:00 97.9 65 18 148/80 (102) 96 03/31/19 10:30 76 166/62 03/31/19 09:00 Room Air 03/31/19 09:00 150/78 03/31/19 08:55 62 150/78 03/31/19 08:00 97.7 62 18 150/78 (102) 94 03/31/19 04:00 97.8 61 18 150/74 (99) 96 03/31/19 00:00 97.5 61 16 158/70 (99) 96 03/30/19 20:46 Room Air 03/30/19 20:00 97.9 61 18 154/67 (96) 96 03/30/19 17:57 62 169/84 I&O Intake and Output 03/30/19 03/31/19 19:00 07:00 Intake Total 1260.000 ml 870 ml Output Total 600 ml 700 ml Balance 660.000 ml 170 ml Intake Oral 500 ml 240 ml IV Total 760.000 ml 630 ml Output Urine Total 600 ml 700 ml # Voids 1 # Bowel Movements 1 1 Dressing: other Wound: other Drains: other Cardiovascular: RSR Respiratory: decreased breath sounds Abdomen: soft, present bowel sounds Extremities: no cyanosis, other Laboratory Tests Test 03/31/19 05:40 White Blood Count 6.4 K/UL (4.8-10.8) Red Blood Count 4.49 M/UL (4.70-6.10) L Hemoglobin 10.3 G/DL (14.2-18.0) L Hematocrit 32.7 % (42.0-52.0) L Mean Corpuscular Volume 73 FL (80-99) L Mean Corpuscular Hemoglobin 22.9 PG (27.0-31.0) L Mean Corpuscular Hemoglobin Concent 31.5 G/DL (32.0-36.0) L Red Cell Distribution Width 12.4 % (11.6-14.8) Platelet Count 198 K/UL (150-450) Mean Platelet Volume 5.0 FL (6.5-10.1) L Neutrophils (%) (Auto) 54.7 % (45.0-75.0) Lymphocytes (%) (Auto) 30.8 % (20.0-45.0) Monocytes (%) (Auto) 7.9 % (1.0-10.0) Eosinophils (%) (Auto) 5.3 % (0.0-3.0) H Basophils (%) (Auto) 1.4 % (0.0-2.0) Sodium Level 143 MMOL/L (136-145) Potassium Level 4.3 MMOL/L (3.5-5.1) Chloride Level 109 MMOL/L (98-107) H Carbon Dioxide Level 27 MMOL/L (21-32) Anion Gap 7 mmol/L (5-15) Blood Urea Nitrogen 19 mg/dL (7-18) H Creatinine 1.1 MG/DL (0.55-1.30) Estimat Glomerular Filtration Rate mL/min (>60) Glucose Level 109 MG/DL (74-106) H Calcium Level 8.2 MG/DL (8.5-10.1) L Plan Problems: (1) Decubitus skin ulcer Assessment & Plan: Pt presented on admission with grossly erythematous and excoriated shaft, and including glans penis. Perineal Hygiene also noted to be grossly neglected and good cleansing provided. Dark skin pigmentation without erythema or induration noted to sacrum and cleft of buttocks. Non-tender when palpated. Both heels are Boggy with non-blanchable erythema. Tx.Plan: Gently cleanse with soap and water.Pat dry. Apply Neosporin Twice Daily. Apply Cavilon Skin Barrier to R and L heels. Cover each Heel with Optifoam drsg. Change every 7 days and prn. Apply Moisture Barrier Paste to Buttocks. Cover Sacrum with Optifoam drsg. Change every 3 days and prn. Reposition at least every 2hours or as tolerated. Off-load heels with pillow. (2) Penis, cellulitis Assessment & Plan: as per urology (3) Ventral hernia Assessment & Plan: Herniation of the anterior aspect of the bladder into a lower pelvic central ventral hernia seen prior on CT stable does not seem strangulated or compromised will monitor Sunday Lopez Mar 31, 2019 17:06
[2019-03-31] MEDS ORDERED: Nystatin Powder 100,000 units/gm 15gm TOPIC SCH ×2 (18:00)
--- NOTE | 2019-04-02 16:06 | Discharge Summary ---
Discharge Summary Discharge Summary _ DATE OF ADMISSION: 03/28/2019 DATE OF DISCHARGE: 03/31/2019 DISCHARGED BY: Dr. Suad Loving CONSULTANTS: Dr. Frida Lopez BRIEF HOSPITAL COURSE: Patient is an 88-year-old male with long history of dementia and history of recurrent urinary tract infection with ESBL positive due to chronic suprapubic catheter, who presented to ER for dysuria and pain on the penis. Patient has also been less active and more bedbound at the assisted living where he resides. He needs higher level of care. The patient denied any nausea or vomiting. He denied diarrhea. He has medical history significant for type 2 diabetes mellitus, dementia, hypertension, overactive bladder, osteoarthritis and gait disability. Upon evaluation at the ED, vital signs were stable. He was saturating 91% on room air. Blood work did not show any leukocytosis. Hemoglobin was 9.5, hematocrit 30.6. Electrolytes were normal. BUN was 31, creatinine 1.5. Calcium 8.1. LFTs normal. Alkaline phosphatase normal. Urinalysis showed 1+ leukocyte esterase. 10-15 urinary RBC, 5-10 urine WBC, 3+ blood, negative ketones, negative nitrites, 3+ blood, 3+ protein. He was admitted to medical floor. He was started on IV antibiotic ertapenem daily. He was started empirically on IV ertapenem. He was given IV hydration with normal saline. Suprapubic catheter was changed in the emergency room. Urologist was consulted. Patricio catheter was draining well. He was given oxybutynin 2.5 mg twice daily. ID was consulted. He was noted to inflammation and pain in his penis. He was treated for balanitis. He was given doxycycline IV twice daily to cover for staph or use. He was continued on IV ertapenem for ESBL urine infection. He was advised good perineal care. Home medications were continued. He was given enalapril and Norvasc for blood pressure control. Blood glucose was monitored. Surgeon was consulted. Upon admission, he was noted to have dark skin pigmentation without erythema or induration in the sacrum and cleft of buttock. He was given local skin care. Patient has a ventral hernia seen on prior CT. Hernia did not seem strangulated or compromised. Initial blood culture showed growth of Staphylococcus capitis. Repeat blood culture did not isolate any growth. Urine culture showed growth of yeast. He was given nystatin powder topically. He was given physical therapy. He was eventually discharged to a SNF. FINAL DIAGNOSES: Catheter associated urinary tract infection due to ESBL producing Proteus mirabilis Cellulitis of the penis/balanitis Advanced dementia Hypertension Sick sinus syndrome with history of pacemaker placement Neurogenic bladder Type 2 diabetes mellitus Depression Dehydration Suprapubic catheter dysfunction with leakage, status post change Acute renal failure Ventral hernia DISPOSITION: DC to SNF DISCHARGE MEDICATIONS: Refer to Discharge Medication List. I have been assigned to complete a discharge summary on this account, I was not involved with the patient's management.--ALEJANDRO Wong Jacqueline Robles NP Apr 02, 2019 16:06
== END 2019-03-31 17:54 | DRG 699 ==
LOC: EDBD 09:08 → EDUNIT# 09:08 → EMR 09:40 → EDBEDREQ 11:05 → 4E 11:18 → EDBEDREQ 12:17 → 4E 14:05
DX: T83.518A Infection and inflammatory reaction due to other urinary catheter, initial encounter (principal); N17.9 Acute kidney failure, unspecified; Z16.12 Extended spectrum beta lactamase (ESBL) resistance; T83.030A Leakage of cystostomy catheter, initial encounter; Y83.3 Surgical operation with formation of external stoma as the cause of abnormal reaction of the patient, or of later complication, without mention of misadventure at the time of the procedure; E86.0 Dehydration; E11.9 Type 2 diabetes mellitus without complications; I10 Essential (primary) hypertension; L89.90 Pressure ulcer of unspecified site, unspecified stage; N48.22 Cellulitis of corpus cavernosum and penis; K43.9 Ventral hernia without obstruction or gangrene; F03.90 Unspecified dementia, unspecified severity, without behavioral disturbance, psychotic disturbance, mood disturbance, and anxiety; B96.4 Proteus (mirabilis) (morganii) as the cause of diseases classified elsewhere; N28.1 Cyst of kidney, acquired; Z95.0 Presence of cardiac pacemaker; N31.9 Neuromuscular dysfunction of bladder, unspecified; F32.9 Major depressive disorder, single episode, unspecified
CPT/HCPCS: 36415; 51702; 80048; 80053; 81001; 85025; 87040; 87081; 87086; 87181; 96365; 96366; 99285; J3490; J7030